=== PATIENT | female | born 1940 | race Caucasian/White ===

== ENCOUNTER 2017-10-04 22:32 | Emergency (ER) | payer MEDICARE ==
[~2017-10-04] VITALS: Ht 167.6 cm; Wt 58.0 kg
[~2017-10-04 22:32] MED LIST: ALPR-411 PO; CHOL2000 PO; DESI10TA PO; FLUO10CA48 PO; MTR600X PO; MULT-190 PO; MULT-506 PO; PRLSR20 PO; SIMV80TA2 PO
[2017-10-04 22:36] VITALS: Ht 167.6 cm; Wt 58.0 kg
--- NOTE | 2017-10-04 23:07 | EMERGENCY ROOM VISIT NOTE ---
History First contact with patient: 22:54 Chief Complaint: LACERATION/CUT (SUT/DERMABOND) Stated Complaint: CUT RT FOOT, 3RD TOE Nursing Triage Summary: laceration to the right middle toe History of Present Illness The patient is a 77 year old female who presents to the Emergency Room with complaints of a laceration to her right third toe. The patient reports that she cut her toe while giving herself a pedicure. She states she was attempting to cut her toenails but slipped and cut her skin. It was bleeding persistently afterward. She does not take any anticoagulants. She denies any pain. Review of Systems A complete 6 point review of systems was reviewed with the patient with pertinent positives and negatives as per history of present illness. All else were negative. Past Medical/Surgical History Medical Problems: (1) Diabetes mellitus, type II (2) Heart disease Social History Smoking Status: Former Smoker Alcohol Use: none Current/Historical Medications Scheduled Alprazolam (Xanax), 0.5 MG PO PRN Cholecalciferol (Vitamin D3), 1 CAP PO QAM Desipramine HCl (Desipramine HCl), 20 MG PO HS Fluoxetine (Prozac), 10 MG PO QAM Ibuprofen (Ibuprofen), 1 TAB PO Q6 Multivitamin (Multivitamin), 1 TAB PO QAM Ocuvite Preservision (Ocuvite Preservision), 1 TAB PO QAM Omeprazole (Prilosec), 20 MG PO QAM Simvastatin (Zocor), 80 MG PO HS Physical Exam Vital Signs Date Time Temp Pulse Resp B/P (MAP) Pulse Ox O2 Delivery O2 Flow Rate FiO2 10/04/17 23:12 36.6 101 20 149/98 94 10/04/17 22:36 36.6 101 20 149/98 94 Room Air Physical Exam VITALS: Vitals are noted on the nurse's note and reviewed by myself. Vital signs stable. GENERAL: This is a 77-year-old female, in no acute distress, nondiaphoretic, well-developed well-nourished. SKIN: There is a small, 0.5 cm laceration to the distal right third toe with no active bleeding. NEURO: Patient was alert and oriented to person place and time. Medical Decision & Procedures Medical Decision The patient was evaluated as above. She sustained a small nonbleeding laceration to the toe. The laceration was dressed and wound care instructions were discussed. The patient verbalized understanding of my assessment and treatment plan and was discharged home in good condition. The patient was independently evaluated by Dr. Frankel, ED attending physician , who agreed with my assessment and treatment plan. Medication Reconcilliation Current Medication List: was personally reviewed by me Blood Pressure Screening Patient's blood pressure: Elevated blood pressure Blood pressure disposition: Elevated BP felt to be situational Impression Primary Impression: Laceration of toe Departure Information Dispostion Home / Self-Care Condition GOOD Referrals Bandar Nieves III, M.D. (PCP) Patient Instructions My [facility] Additional Instructions Leave the dressing in place for the next 24 hours, then you may replace the dressing daily as needed. Tylenol or ibuprofen as needed for pain. Return to the emergency department with any worsening or new/concerning symptoms. Problem Qualifiers Primary Impression: Laceration of toe Encounter type: initial encounter Toe: unspecified toe Damage to nail status: without damage Foreign body presence: without foreign body Laterality: right Qualified Codes: S91.119A - Laceration without foreign body of unspecified toe without damage to nail, initial encounter
--- NOTE | 2017-10-04 23:07 | EMERGENCY ROOM VISIT NOTE ---
ED Visit Note First contact with patient: 22:54 I have seen and examined this patient with Lorie Ortega and generally agree with the treatment plan as discussed. Current/Historical Medications Scheduled Alprazolam (Xanax), 0.5 MG PO PRN Cholecalciferol (Vitamin D3), 1 CAP PO QAM Desipramine HCl (Desipramine HCl), 20 MG PO HS Fluoxetine (Prozac), 10 MG PO QAM Ibuprofen (Ibuprofen), 1 TAB PO Q6 Multivitamin (Multivitamin), 1 TAB PO QAM Ocuvite Preservision (Ocuvite Preservision), 1 TAB PO QAM Omeprazole (Prilosec), 20 MG PO QAM Simvastatin (Zocor), 80 MG PO HS Allergies Coded Allergies: Penicillins (Verified Allergy, Mild, RASH-DR CALLE GAVE OK FOR ANCEF ON 06/28/06, 06/23/16) Vital Signs Date Time Temp Pulse Resp B/P (MAP) Pulse Ox O2 Delivery O2 Flow Rate FiO2 10/04/17 22:36 36.6 101 20 149/98 94 Room Air Departure Information Referrals Bandar Nieves III, M.D. (PCP) Patient Instructions My [facility]
[2017-10-04 23:12] VITALS: BP 149/98; PULSE 101; TEMP 36.6; O2SAT 94
== END 2017-10-04 23:12 | disposition home or self-care (01) ==
LOC: C.EDB 22:33 → C.EDD 23:12
DX: S91.119A Laceration without foreign body of unspecified toe without damage to nail, initial encounter (principal); W45.8XXA Other foreign body or object entering through skin, initial encounter; E11.9 Type 2 diabetes mellitus without complications; I51.9 Heart disease, unspecified; Z87.891 Personal history of nicotine dependence

== ENCOUNTER 2020-10-16 13:18 | Inpatient (IN) ==
[2020-10-16] MEDS ORDERED: FAMOTIDINE 20MG IV PUSH 20 MG/5 ML SYR IV STA (13:42)
[2020-10-16] MEDS ORDERED: PANTOprazole 80 MG in DEXTROSE 5% 100 ML IV ONE (13:42)
[2020-10-16] MEDS ORDERED: PANTOPRAZOLE BOLUS/DRIP 1 EA IV STA (13:42)
[2020-10-16] MEDS ORDERED: SODIUM CHLORIDE 0.9% 500 ML IV SCH ×2 (13:45→19:15)
[2020-10-16 13:59] LABS: Basophils # (auto) 0.01 K/uL (0-0.2); Basophils % (auto) 0.1 %; Eosinophils # (auto) 0.01 K/uL (0-0.5); Eosinophils % (auto) 0.1 %; Hematocrit (blood only) 38.8 % (37-47); Hemoglobin 12.3 g/dL (12.0-16.0); Immature Granulocytes # (auto) 0.02 K/uL (0.00-0.02); Immature Granulocytes % (auto) 0.2 %; Lymphocytes # (auto) 0.71 K/uL (1.2-3.4); Lymphocytes % (auto) 5.7 %; Mean Corpuscular Hemoglobin 30.9 pg (25-34); Mean Corpuscular Hgb Conc 31.7 g/dL (32-36); Mean Corpuscular Volume 97.5 fL (80-100); Mean Platelet Volume 9.3 fL (7.4-10.4); Monocytes # (auto) 0.43 K/uL (0.11-0.59); Monocytes % (auto) 3.5 %; Neutrophils # (auto) 11.26 K/uL (1.4-6.5); Neutrophils % (auto) 90.4 %; Platelet Count 365 K/uL (130-400); RDW Standard Deviation 56.7 fL (36.4-46.3); Red Blood Count 3.98 M/uL (4.2-5.4); White Blood Count 12.44 K/uL (4.8-10.8)
[2020-10-16] MEDS: PANTOprazole 40 MG in DEXTROSE 5% 100 ML IV SCH ×2 (14:02→19:32)
[2020-10-16 14:14] LABS: Partial Thromboplastin Ratio 0.8; Partial Thromboplastin Time 21.1 Seconds (21.0-31.0); Prothrombin Time 9.8 Seconds (9.0-12.0)
[2020-10-16 14:23] LABS: Albumin Globulin Ratio 0.7 (0.9-2); Albumin Level 2.5 gm/dl (3.4-5.0); Bilirubin,Total 0.4 mg/dl (0.2-1); Calcium 8.6 mg/dl (8.5-10.1); Est GFR (African American) 44.1; Est GFR (Non-African American) 38.1; Globulin 3.6 gm/dl (2.5-4.0); Potassium 5.2 mmol/L (3.5-5.1); Total Protein 6.1 gm/dl (6.4-8.2); Troponin I 0.024 ng/ml (0-0.045)
--- NOTE | 2020-10-16 14:48 | History & Physical Report ---
Date of Service October 16, 2020 Assessment & Plan (1) Coffee ground emesis: (2) CAD (coronary artery disease): (3) GERD (gastroesophageal reflux disease): (4) COPD (chronic obstructive pulmonary disease): (5) Depression: (6) Anxiety: (7) Sleep apnea: This is an 80-year-old female with PMH of CAD, GERD, COPD, bronchiectasis, anxiety, depression, SILVIA and other medical problems listed below who presents with caregiver after multiple episodes of coffee-ground emesis since last evenin g. Coffee ground emesis Reported episodes overnight - attempting to reach [facility] for more info History of EGD in September 2019 with large hiatal hernia. Prescribed omeprazole. History of colonoscopy in 2018 with adenomatous polyp Hemodynamically stable. Mild leukocytosis of 12.44, hgb stable at 12.3. BUN elevated at 35. Cr 1.31. Stool occult blood positive Continue IV protonix bolus/drip, NPO, routine GI consult, gentle IV fluids, monitor H&H CAD No chest pain, no acute EKG changes Hold aspirin, continue statin COPD Tobacco use disorder Smoking for 50+ years, decreased to 0.50 ppd Continue albuterol inh PRN Anxiety Depression Continue Lexapro, Xanax PRN SILVIA Not using CPAP currently DVT Ppx: SCDs Code status: FULL PCP: Ezequiel Dispo: Observation med tele. Will continue attempting to contact [facility] for more information and to complete medication reconciliation. Patient seen in collaboration with Dr. Carter. Please see addendum. History of Present Illness Chief Complaint: Coffee-ground emesis, heme positive stool Primary Care Provider: Bandar Nieves MD This is an 80-year-old female with PMH of type 2 diabetes, dyslipidemia, COPD, bronchiectasis, SILVIA, CAD, GERD and other medical problems listed below who presents with caregiver after multiple episodes of coffee-ground emesis during the night. Patient vaguely remembered this occurring once she woke up and saw dark brown stains on pajamas and sheets. Denies this occurring previously. No abdominal pain. Last bowel movement was yesterday morning and describes as normal. No hematochezia or melena. No fever, chills, lightheadedness, headache, chest pain, SOB, nausea, dysuria or hematuria. Does not know medications off hand but asked that I call caregivers to discuss. Knows that she takes a baby aspirin daily. Also with significant smoking history of 50+ years. Currently smoking 1/2 ppd. History of EGD in September 2019 with large hiatal hernia. Prescribed omeprazole. History of colonoscopy in 2018 with adenomatous polyp. In ED, patient is afebrile and hemodynamically stable. Mild leukocytosis of 12.44, hgb stable at 12.3. Potassium 5.2. BUN elevated at 35. Cr 1.31. Stool occult blood positive Allergies Allergy/AdvReac Type Severity Reaction Status Date / Time Penicillins Allergy Mild Rash Verified 10/16/20 15:10 Home Medications Medication Instructions Recorded Confirmed Type aspirin 81 mg PO QAM 02/10/19 10/16/20 History atorvastatin 80 mg PO QAM 02/10/19 10/16/20 History cholecalciferol (vitamin D3) 2,000 unit PO QAM 02/10/19 10/16/20 History [Vitamin D3] multivitamin 1 tab PO QAM 02/10/19 10/16/20 History PreserVision AREDS 1 tab PO QAM 06/06/19 10/16/20 History albuterol sulfate [ProAir HFA] 2 puff INHALATION Q6H PRN 06/06/19 10/16/20 History escitalopram oxalate 10 mg PO QAM 06/06/19 10/16/20 History omeprazole 40 mg PO QAM 09/30/19 10/16/20 History alprazolam 0.5 mg PO HS PRN 10/16/20 10/16/20 History Past Med/Surg History Medical History Anxiety Bronchiectasis CAD (coronary artery disease) Cancer of left breast 2005--sx, chemo, radiation COPD (chronic obstructive pulmonary disease) Depression Diabetes mellitus, type II GERD (gastroesophageal reflux disease) Hyperlipidemia Myocardial Infarction 08/2017 "silent"--follows with Dr. Aguiar Sleep apnea CPAP--uses it from time to time Surgical History History of bilateral cataract extraction History of colonoscopy History of esophagogastroduodenoscopy (EGD) History of left breast biopsy malignant History of lumpectomy of left breast History of tooth extraction all teeth Family History Brother Family hx of colon cancer Other No family history of adverse response to anesthesia Social History Smoking Status: Current some day smoker Cigarettes Per Day: COUPLE CIGS A DAY-TRYING TO QUIT AGAIN-ON [place]ANTIX; Second Hand Exposure: Yes (FATHER SMOKED); Hx Alcohol Use: No Hx Substance Use: No Preferred Language: Sudanese Communication Ability: Effective [employer] Required: No Beliefs That Will Affect Care: None Current Living Situation: Alone Feels Safe at Home: Yes Assistive Devices: CPAP, Denture - Upper and Glasses Review of Systems Review of Systems: At least ten systems reviewed and negative except as noted in the HPI. Physical Exam Physical Exam: General Appearance: vitals as above, NAD, thin, sitting up in bed, pleasant, conversing appropriately Head: normocephalic, atraumatic Eyes: normal inspection, PERRL, conjunctivae normal, anicteric sclerae ENT: external ear and nose normal, oropharynx normal Neck: normal visual inspection, trachea midline, no thyromegaly Respiratory: normal respiratory effort, lungs clear to auscultation, no wheeze, rales, rhonchi. No accessory muscle use Cardiovascular: regular rate, rhythm, no murmur, normal peripheral pulses, no BLE edema. Vessels: no JVD Chest: normal inspection of chest Abdomen/GI: normal bowel sounds, soft, nontender, no hepatosplenomegaly Extremities/Musculoskeletal: no cyanosis or clubbing, extremities motor strength 5/5 Neurologic: PERRL, EOMI, accommodation nl, no face palsy, no dysarthria, CN's II-XI intact bilaterally and moves all extremities Psychiatric: A+Ox3 but not to situation, euthymic affect Skin: no rashes, normal color, warm/dry. + Erythema on dorsal aspect of R foot with bandage in place. No purulant drainage or warmth to touch Results & Data Results & Data ([facility]) Vital Signs (Past 12 Hours) Vital Signs Temp Pulse Resp BP Pulse Ox 10/16/20 14:20 78 97 10/16/20 14:10 77 23 98 10/16/20 14:00 84 24 114/61 94 10/16/20 13:50 88 95 10/16/20 13:43 95 H 20 120/81 99 10/16/20 13:40 98 H 13 10/16/20 13:30 96 H 99 10/16/20 13:27 98 H 99 10/16/20 13:26 36.8 C 102 H 18 133/65 98 10/16/20 13:21 96 H 133/65 99 Laboratory Results Short CBC 10/16/20 10/16/20 Range/Units 13:39 13:39 WBC 12.44 H (4.8-10.8) K/uL Hgb 12.3 (12.0-16.0) g/dL Hct 38.8 (37-47) % Plt Count 365 (130-400) K/uL BUN 35 H (7-18) mg/dl Creatinine 1.31 H (0.6-1.2) mg/dl BMP 10/16/20 13:39 Sodium 140 Potassium 5.2 H Chloride 107 Carbon Dioxide 26 BUN 35 H Creatinine 1.31 H Glucose 128 H Calcium 8.6 Cardiac Enzymes 10/16/20 Range/Units 13:39 Troponin I 0.024 (0-0.045) ng/ml Liver Function 10/16/20 Range/Units 13:39 Total Bilirubin 0.4 (0.2-1) mg/dl AST 22 (15-37) U/L ALT 19 (12-78) U/L Alkaline Phosphatase 83 (45-117) U/L Albumin 2.5 L (3.4-5.0) gm/dl Supervising Physician Co-Signing Physician Notes Pt seen and examined by me, care coordinated w/ Bri Ma PA-C. Pt is an 80 F who presents w/ coffee-ground emesis. She is not sure about the events as it happened overnight and this AM, however caregiver was able to provide the hx. In the ED pt is pleasant and in no distress. She is hemodynamically stable. Hgb above 12. Started on IV protonic, received IVF. She is alert and oriented but not sure about all the details of hx - mental status at baseline. CTAB no wheezing, rhonchi crackles noted. Heart sounds regular. Abdomen is thin, soft, nontender to palpation and nondistended. She moves all extremities w/o difficulty. Will cont. IV PPI and will monitor H&H. GI consulted for further eval. A. Knab, MD
--- NOTE | 2020-10-16 16:28 | Emergency Department Note ---
Impression & Plan Acute GI bleeding, Coffee ground emesis ED Provider Note INFORMANT: Patient ED PROVIDER(S): Bandar Marquez MD CHIEF COMPLAINT: Coffee-ground emesis PLAN: Disposition: Admitted Condition: Good Outpatient prescription management: none Referral: None MEDICAL DECISION MAKING: Patient presented emerged department with coffee-ground emesis. Physical examination showed stable vital signs however the patient was Hemoccult positive. Blood work was obtained. She had slight leukocytosis. Her chemistry panel revealed an elevated BUN. This is concerning for GI bleed, possibly upper source. The patient was started on Pepcid and Protonix. I discussed further management in the hospital. Covid testing was performed and was negative. Consultation was made with the [employer] [facility] service. The case was discussed with Bri Ma PA-C. Patient will be admitted by Dr. Carter. Triage Nursing notes reviewed and agree them. Vital Signs: reviewed and remarkable for no significant abnormalities Differential diagnosis: Diverticulosis, AVM, coagulopathy, colitis, inflammatory bowel disease, malignancy, Estefany-Ribeiro tear, esophagitis, peptic ulcer disease, variceal bleed, gastritis, epistaxis, fissure, hemorrhoids, as well as other pathologies. Diagnostics interpreted by me: ECG: Twelve-lead ECG reveals normal sinus rhythm at 99 bpm. There is anterior Q waves as well as septal Q waves. No ST elevation. No PVCs. Normal QRS and axis. Cardiac Monitoring: Cardiac monitoring ordered by me: The patient was placed on continuous cardiac monitoring and observed. It revealed a normal sinus rhythm at 85 beats per minute without ectopy or evidence of dysrhythmia. Imaging studies: Deferred HPI: The patient is a 80 year old female who presents to the Emergency Room with complaints of coffee-ground emesis. This started last night and has occurred several times per the patient. Caregiver noted it this morning and contacted primary. She was directed to the ER for further evaluation.. The patient also notes the following associated symptoms, none. The patient has taken no new medication for relieving factors. Current pain is rated as 0/10. No prior history of GI bleed. Pt denies LOC, headache, fevers, chills, diaphoresis, visual changes, neck pain, chest pain, breathing difficulties, abdominal pain, back pain, melena, hematochezia, urinary symptoms, numbness, weakness, lymphadenopathy, rash, or other complaints. ROS: See above HPI for pertinent positives & negatives. A total of 10 systems reviewed and were otherwise negative. PAST MEDICAL HISTORY:See Below , diabetes, COPD PAST SURGICAL HISTORY:See Below, FAMILY HISTORY:See Below SOCIAL HISTORY:See Below, lives at home alone. Caregivers daily. HOME MEDICATIONS:See Below ALLERGIES:See Below VITALS:See Below PHYSICAL EXAMINATION: GENERAL: Awake, alert, well-appearing, in no distress HENT: Normocephalic, atraumatic. Oropharynx unremarkable. EYES: Normal conjunctiva. Sclera non-icteric. NECK: Inspection normal. Non-tender. Supple. No nuchal rigidity. FROM. No masses. RESPIRATORY: Clear to auscultation. No wheezes. No rales. Normal respiratory effort. CARDIAC: Normal rate. Normal rhythm. No murmurs. No rubs. Extremities warm and well perfused. Pulses equal. No JVD. GI: Soft, non-distended. No tenderness to palpation. No rebound or guarding. No masses. RECTAL: Reddish stool. Hemoccult positive. MUSCULOSKELETAL: Atraumatic. Chest examination reveals no tenderness. The back is symmetrical on inspection without obvious abnormality. There is no CVA tenderness to palpation. No joint edema. LOWER EXTREMITIES: Calves are equal size bilaterally and non-tender. No edema. No discoloration. NEURO: Normal sensorium. No sensory or motor deficits noted. SKIN: No rash or jaundice noted. Bandar Marquez MD Past Med/Surg History Medical History (Updated 10/16/20 @ 16:24 by Bandar Marquez MD) Anxiety Bronchiectasis CAD (coronary artery disease) Cancer of left breast 2005--sx, chemo, radiation COPD (chronic obstructive pulmonary disease) Depression Diabetes mellitus, type II GERD (gastroesophageal reflux disease) Hyperlipidemia Myocardial Infarction 08/2017 "silent"--follows with Dr. Aguiar Sleep apnea CPAP--uses it from time to time Surgical History History of bilateral cataract extraction History of colonoscopy History of esophagogastroduodenoscopy (EGD) History of left breast biopsy malignant History of lumpectomy of left breast History of tooth extraction all teeth Family History Brother Family hx of colon cancer Other No family history of adverse response to anesthesia Social History Smoking Status: Current some day smoker Cigarettes Per Day: COUPLE CIGS A DAY-TRYING TO QUIT AGAIN-ON CHANTIX; Second Hand Exposure: Yes (FATHER SMOKED); Hx Alcohol Use: No Hx Substance Use: No Preferred Language: [place] Communication Ability: Effective [employer] Required: No Beliefs That Will Affect Care: None Current Living Situation: Alone Feels Safe at Home: Yes Assistive Devices: CPAP, Denture - Upper and Glasses Allergies Allergies Allergy/AdvReac Type Severity Reaction Status Date / Time Penicillins Allergy Mild Rash Verified 10/16/20 15:10 Home Meds Home Medications Medication Instructions Recorded Confirmed aspirin 81 mg PO QAM 02/10/19 10/16/20 atorvastatin 80 mg PO QAM 02/10/19 10/16/20 cholecalciferol (vitamin D3) 2,000 unit PO QAM 02/10/19 10/16/20 [Vitamin D3] multivitamin 1 tab PO QAM 02/10/19 10/16/20 PreserVision AREDS 1 tab PO QAM 06/06/19 10/16/20 albuterol sulfate [ProAir HFA] 2 puff INHALATION Q6H PRN 06/06/19 10/16/20 escitalopram oxalate 10 mg PO QAM 06/06/19 10/16/20 omeprazole 40 mg PO QAM 09/30/19 10/16/20 alprazolam 0.5 mg PO HS PRN 10/16/20 10/16/20 Results & Data (ED) Vital Signs Vital Signs - 24 hr 10/16/20 13:21 10/16/20 13:26 10/16/20 13:27 Temperature 36.8 C Temperature Source Oral Pulse Rate 96 H 102 H 98 H Pulse Rate from SpO2 Sensor 97 H 97 H Pulse Rhythm Respiratory Rate 18 Blood Pressure 133/65 133/65 Blood Pressure Mean 87 87 Pulse Oximetry 99 98 99 Oxygen Delivery Method Room Air Sepsis Recent Fever Within 48 Hours No Sepsis New/Unexplained Change in Mental Status N/A Sepsis Action Taken by Nursing No Action Required 10/16/20 13:30 10/16/20 13:40 10/16/20 13:43 Temperature Temperature Source Pulse Rate 96 H 98 H 95 H Pulse Rate from SpO2 Sensor 96 H 93 H Pulse Rhythm Regular Respiratory Rate 13 20 Blood Pressure 120/81 Blood Pressure Mean 94 Pulse Oximetry 99 99 Oxygen Delivery Method Room Air Sepsis Recent Fever Within 48 Hours Sepsis New/Unexplained Change in Mental Status Sepsis Action Taken by Nursing 10/16/20 13:50 10/16/20 14:00 10/16/20 14:10 Temperature Temperature Source Pulse Rate 88 84 77 Pulse Rate from SpO2 Sensor 86 82 77 Pulse Rhythm Respiratory Rate 24 23 Blood Pressure 114/61 Blood Pressure Mean 78 Pulse Oximetry 95 94 98 Oxygen Delivery Method Sepsis Recent Fever Within 48 Hours Sepsis New/Unexplained Change in Mental Status Sepsis Action Taken by Nursing 10/16/20 14:20 Temperature Temperature Source Pulse Rate 78 Pulse Rate from SpO2 Sensor 77 Pulse Rhythm Respiratory Rate Blood Pressure Blood Pressure Mean Pulse Oximetry 97 Oxygen Delivery Method Sepsis Recent Fever Within 48 Hours Sepsis New/Unexplained Change in Mental Status Sepsis Action Taken by Nursing Laboratory Data Result diagrams: 10/16/20 13:39 10/16/20 13:39 Lab Results 10/16/20 10/16/20 10/16/20 Range/Units 13:39 13:39 13:39 WBC 12.44 H (4.8-10.8) K/uL RBC 3.98 L (4.2-5.4) M/uL Hgb 12.3 (12.0-16.0) g/dL Hct 38.8 (37-47) % MCV 97.5 (80-100) fL MCH 30.9 (25-34) pg MCHC 31.7 L (32-36) g/dL RDW Std Deviation 56.7 H (36.4-46.3) fL RDW Coeff of Thierry 16.0 H (11.5-14.5) % Plt Count 365 (130-400) K/uL MPV 9.3 (7.4-10.4) fL Immature Gran % (Auto) 0.2 % Neut % (Auto) 90.4 % Lymph % (Auto) 5.7 % Jenkins % (Auto) 3.5 % Eos % (Auto) 0.1 % Baso % (Auto) 0.1 % Neut # (Auto) 11.26 H (1.4-6.5) K/uL Lymph # (Auto) 0.71 L (1.2-3.4) K/uL Jenkins # (Auto) 0.43 (0.11-0.59) K/uL Eos # (Auto) 0.01 (0-0.5) K/uL Baso # (Auto) 0.01 (0-0.2) K/uL Immature Gran # (Auto) 0.02 (0.00-0.02) K/uL PT (9.0-12.0) Seconds INR (0.9-1.1) APTT (21.0-31.0) Seconds PTT Ratio Sodium 140 (136-145) mmol/L Potassium 5.2 H (3.5-5.1) mmol/L Chloride 107 (98-107) mmol/L Carbon Dioxide 26 (21-32) mmol/L Anion Gap 7.0 (3-11) BUN 35 H (7-18) mg/dl Creatinine 1.31 H (0.6-1.2) mg/dl Est Cr Clr Drug Dosing 24.0 ml/min Est GFR ( Amer) 44.1 Est GFR (Non-Af Amer) 38.1 BUN/Creatinine Ratio 27.0 H (10-20) Glucose 128 H (70-99) mg/dl Calcium 8.6 (8.5-10.1) mg/dl Total Bilirubin 0.4 (0.2-1) mg/dl AST 22 (15-37) U/L ALT 19 (12-78) U/L Alkaline Phosphatase 83 (45-117) U/L Troponin I 0.024 (0-0.045) ng/ml Total Protein 6.1 L (6.4-8.2) gm/dl Albumin 2.5 L (3.4-5.0) gm/dl Globulin 3.6 (2.5-4.0) gm/dl Albumin/Globulin Ratio 0.7 L (0.9-2) Specimen Hemolysis POC Stool Occult Blood (Negative) COVID-19 Eval Order SARS-CoV-2, RNA, NAAT (NEGATIVE) Blood Type Cancelled Blood Type Recheck Antibody Screen Cancelled 10/16/20 10/16/20 10/16/20 Range/Units 13:39 13:39 13:43 WBC (4.8-10.8) K/uL RBC (4.2-5.4) M/uL Hgb (12.0-16.0) g/dL Hct (37-47) % MCV (80-100) fL MCH (25-34) pg MCHC (32-36) g/dL RDW Std Deviation (36.4-46.3) fL RDW Coeff of Thierry (11.5-14.5) % Plt Count (130-400) K/uL MPV (7.4-10.4) fL Immature Gran % (Auto) % Neut % (Auto) % Lymph % (Auto) % Jenkins % (Auto) % Eos % (Auto) % Baso % (Auto) % Neut # (Auto) (1.4-6.5) K/uL Lymph # (Auto) (1.2-3.4) K/uL Jenkins # (Auto) (0.11-0.59) K/uL Eos # (Auto) (0-0.5) K/uL Baso # (Auto) (0-0.2) K/uL Immature Gran # (Auto) (0.00-0.02) K/uL PT 9.8 (9.0-12.0) Seconds INR 1.0 (0.9-1.1) APTT 21.1 (21.0-31.0) Seconds PTT Ratio 0.8 Sodium (136-145) mmol/L Potassium (3.5-5.1) mmol/L Chloride (98-107) mmol/L Carbon Dioxide (21-32) mmol/L Anion Gap (3-11) BUN (7-18) mg/dl Creatinine (0.6-1.2) mg/dl Est Cr Clr Drug Dosing ml/min Est GFR ( Amer) Est GFR (Non-Af Amer) BUN/Creatinine Ratio (10-20) Glucose (70-99) mg/dl Calcium (8.5-10.1) mg/dl Total Bilirubin (0.2-1) mg/dl AST (15-37) U/L ALT (12-78) U/L Alkaline Phosphatase (45-117) U/L Troponin I (0-0.045) ng/ml Total Protein (6.4-8.2) gm/dl Albumin (3.4-5.0) gm/dl Globulin (2.5-4.0) gm/dl Albumin/Globulin Ratio (0.9-2) Specimen Hemolysis POC Stool Occult Blood Positive A (Negative) COVID-19 Eval Order SARS-CoV-2, RNA, NAAT (NEGATIVE) Blood Type Blood Type Recheck O Positive Antibody Screen 10/16/20 10/16/20 10/16/20 Range/Units 14:43 14:43 14:48 WBC (4.8-10.8) K/uL RBC (4.2-5.4) M/uL Hgb (12.0-16.0) g/dL Hct (37-47) % MCV (80-100) fL MCH (25-34) pg MCHC (32-36) g/dL RDW Std Deviation (36.4-46.3) fL RDW Coeff of Thierry (11.5-14.5) % Plt Count (130-400) K/uL MPV (7.4-10.4) fL Immature Gran % (Auto) % Neut % (Auto) % Lymph % (Auto) % Jenkins % (Auto) % Eos % (Auto) % Baso % (Auto) % Neut # (Auto) (1.4-6.5) K/uL Lymph # (Auto) (1.2-3.4) K/uL Jenkins # (Auto) (0.11-0.59) K/uL Eos # (Auto) (0-0.5) K/uL Baso # (Auto) (0-0.2) K/uL Immature Gran # (Auto) (0.00-0.02) K/uL PT (9.0-12.0) Seconds INR (0.9-1.1) APTT (21.0-31.0) Seconds PTT Ratio Sodium (136-145) mmol/L Potassium (3.5-5.1) mmol/L Chloride (98-107) mmol/L Carbon Dioxide (21-32) mmol/L Anion Gap (3-11) BUN (7-18) mg/dl Creatinine (0.6-1.2) mg/dl Est Cr Clr Drug Dosing ml/min Est GFR ( Amer) Est GFR (Non-Af Amer) BUN/Creatinine Ratio (10-20) Glucose (70-99) mg/dl Calcium (8.5-10.1) mg/dl Total Bilirubin (0.2-1) mg/dl AST (15-37) U/L ALT (12-78) U/L Alkaline Phosphatase (45-117) U/L Troponin I (0-0.045) ng/ml Total Protein (6.4-8.2) gm/dl Albumin (3.4-5.0) gm/dl Globulin (2.5-4.0) gm/dl Albumin/Globulin Ratio (0.9-2) Specimen Hemolysis POC Stool Occult Blood (Negative) COVID-19 Eval Order Covid19 [facility]Now [facility] SARS-CoV-2, RNA, NAAT NEGATIVE (NEGATIVE) Blood Type O Positive Blood Type Recheck Antibody Screen NEGATIVE Administered Medications Pantoprazole Sodium 40 mg/ (Dextrose) 100 mls @ 20 mls/hr IV Q5H MOLLY Stop: 11/15/20 13:58 Last Admin: 10/16/20 14:02 Dose: 8 mg/hr, 20 mls/hr Documented by: [id number] Discontinued Medications Sodium Chloride (Nss) 500 mls @ 999 mls/hr IV .Q31M MOLLY Stop: 10/16/20 14:15 Last Admin: 10/16/20 14:01 Dose: 999 mls/hr Documented by: [id number] Famotidine (Pepcid 20mg Iv Push) 20 mg in 5 mls @ 2.5 mls/min IV NOW STA Stop: 10/16/20 13:43 Last Admin: 10/16/20 14:01 Dose: 2.5 mls/min Documented by: [id number] Pantoprazole Sodium (Protonix Bolus/Drip) 0 mls @ 1 mls/hr IV ONE STA Stop: 10/16/20 13:43 Last Admin: 10/16/20 14:02 Dose: Not Given Documented by: [id number] Pantoprazole Sodium 80 mg/ (Dextrose) 120 mls @ 400 mls/hr IV NOW ONE Stop: 10/16/20 13:59 Last Admin: 10/16/20 14:02 Dose: 400 mls/hr Documented by: [id number] Discharge Plan Visit Data Chief Complaint: GI Assessment ED Provider: Bandar Marquez Discharge Problem: Acute GI bleeding, Coffee ground emesis Forms Stand Alone Forms: [facility] Prescriptions Prescriptions: No Action multivitamin Tablet 1 tab PO QAM RF: 0 atorvastatin 40 mg Tablet 80 mg PO QAM RF: 0 aspirin 81 mg Tablet,Delayed Release (Dr/Ec) 81 mg PO QAM RF: 0 cholecalciferol (vitamin D3) [Vitamin D3] 2,000 unit Tablet 2,000 unit PO QAM RF: 0 albuterol sulfate [ProAir HFA] 90 mcg/actuation Hfa Aerosol Inhaler 2 puff INHALATION Q6H PRN (Reason: Shortness Of Breath) RF: 0 escitalopram oxalate 10 mg Tablet 10 mg PO QAM RF: 0 PreserVision AREDS [id number] Tablet 1 tab PO QAM RF: 0 omeprazole 40 mg Capsule,Delayed Release(Dr/Ec) 40 mg PO QAM RF: 0 alprazolam 0.5 mg tablet 0.5 mg PO HS PRN (Reason: Anxiety) RF: 0
[2020-10-16] MEDS ORDERED: ONDANSETRON INJ 2 MG/ML 2 ML VIAL IV PRN (18:01)
[2020-10-16 20:02] LABS: Appearance Urine Cloudy (Clear); Bacteria Urine Automated Negative (Negative); Bilirubin Urine Negative (Negative); Blood Urine Negative (Negative); Color Urine Yellow; Glucose Urine UA Negative (Negative); Ketones Urine Negative (Negative); Leukocyte Esterase Urine 3+ (Negative); Nitrite Urine Negative (Negative); RBC Urine Automated 0-4 /hpf (0-4); Specific Gravity Urine 1.015 (1.000-1.030); Urobilinogen Urine Negative (Negative); WBC Urine Automated >30 /hpf (0-5); pH Urine 8.5 (4.5-7.5)
[2020-10-16 20:06] LABS: Protein Urine Trace (Negative)
[2020-10-17 00:21] LABS: Hematocrit (blood only) 29.9 % (37-47); Hemoglobin 9.5 g/dL (12.0-16.0)
[2020-10-17] MEDS: PANTOprazole 40 MG in DEXTROSE 5% 100 ML IV SCH ×5 (01:43→21:24)
[2020-10-17 05:56] LABS: Hematocrit (blood only) 29.8 % (37-47); Hemoglobin 9.5 g/dL (12.0-16.0); Mean Corpuscular Hemoglobin 30.9 pg (25-34); Mean Corpuscular Hgb Conc 31.9 g/dL (32-36); Mean Corpuscular Volume 97.1 fL (80-100); Mean Platelet Volume 8.8 fL (7.4-10.4); Platelet Count 291 K/uL (130-400); RDW Coefficient of Variation 16.2 % (11.5-14.5); RDW Standard Deviation 56.7 fL (36.4-46.3); Red Blood Count 3.07 M/uL (4.2-5.4); White Blood Count 5.73 K/uL (4.8-10.8)
[2020-10-17 06:24] LABS: BUN Creatinine Ratio 22.6 (10-20); Creatinine Clr Calc Pharmacy 26.9 ml/min; Est GFR (African American) 50.6; Est GFR (Non-African American) 43.7; Potassium 4.6 mmol/L (3.5-5.1)
--- NOTE | 2020-10-17 07:47 | Hospitalist Progress Note ---
Date of Service October 17, 2020 Assessment & Plan (1) Coffee ground emesis: (2) CAD (coronary artery disease): (3) GERD (gastroesophageal reflux disease): (4) COPD (chronic obstructive pulmonary disease): (5) Depression: (6) Anxiety: (7) Sleep apnea: This is an 80-year-old female with PMH of CAD, GERD, COPD, bronchiectasis, anxiety, depression, SILVIA and other medical problems listed below who presents with caregiver after multiple episodes of coffee-ground emesis. Coffee ground emesis Reported episodes overnight - attempting to reach [facility] for more info History of EGD in September 2019 with large hiatal hernia. Prescribed omeprazole. History of colonoscopy in 2018 with adenomatous polyp Hemodynamically stable. Mild leukocytosis of 12.44, hgb 12.3 on admission. BUN elevated at 35. Cr 1.31. Stool occult blood positive Continue IV protonix bolus/drip, NPO, routine GI consult, gentle IV fluids, monitor H&H Hgb 9.5 this AM, hemodynamically stable, will cont. to closely monitor plan for EGD tomorrow (10/18) CAD No chest pain, no acute EKG changes Hold aspirin, continue statin COPD Tobacco use disorder Smoking for 50+ years, decreased to 0.50 ppd Continue albuterol inh PRN Anxiety Depression Continue Lexapro, Xanax PRN SILVIA Not using CPAP currently DVT Ppx: SCDs Code status: FULL PCP: Dr. Nieves Dispo: to be determined Admission and Anticipated Discharge Date Admission Date: October 16, 2020 Subjective Pt seen in follow up of pos. upper GI bleed Yesterday witnessed by caregiver coffee-ground emesis Currently laying in bed, in NAD, denies having any more emesis since admission Hgb down 9.5 GI consulted Review of Systems Review of Systems: All systems reviewed & are unremarkable except as noted in HPI & below Constitutional: no fever and no chills Respiratory: no cough and no dyspnea Cardiovascular: no chest pain and no palpitations Gastrointestinal: no abdominal pain, no nausea and no vomiting Physical Exam Physical Exam: General Appearance: vitals as above, NAD, thin, laying in bed, pleasant, conversing appropriately Head: normocephalic, atraumatic Eyes: normal inspection, PERRL,EOMI, conjunctivae normal, anicteric sclerae ENT: external ear and nose normal, oropharynx normal Neck: normal visual inspection, trachea midline, no thyromegaly Respiratory: normal respiratory effort, lungs clear to auscultation, no wheeze, rales, rhonchi. No accessory muscle use Cardiovascular: regular rate, rhythm, no murmur, normal peripheral pulses, no BLE edema. Vessels: no JVD Chest: normal inspection of chest Abdomen/GI: normal bowel sounds, thin, soft, nontender, nondistended Extremities/Musculoskeletal: no cyanosis or clubbing, extremities motor strength 5/5 Neurologic: PERRL, EOMI, no face palsy, no dysarthria, CN's II-XI intact bilaterally and moves all extremities Psychiatric: A+Ox3 but not to situation, euthymic affect Skin: no rashes, normal color, warm/dry. + small Erythema on dorsal aspect of R foot with bandage in place. No purulent drainage or warmth to touch Results & Data Results & Data ([facility]) Vital Signs (Past 12 Hours) Vital Signs Temp Pulse Pulse Resp BP Pulse Ox 10/17/20 07:45 36.8 C 68 18 102/61 99 10/17/20 03:51 37.2 C 60 17 108/64 99 10/17/20 02:12 75 10/16/20 23:42 37 C 72 20 101/59 L 98 Laboratory Results 10/17/20 10/17/20 10/17/20 Range/Units 05:42 05:42 00:12 WBC 5.73 (4.8-10.8) K/uL RBC 3.07 L (4.2-5.4) M/uL Hgb 9.5 L 9.5 L (12.0-16.0) g/dL Hct 29.8 L 29.9 L (37-47) % MCV 97.1 (80-100) fL MCH 30.9 (25-34) pg MCHC 31.9 L (32-36) g/dL RDW Std Deviation 56.7 H (36.4-46.3) fL RDW Coeff of Thierry 16.2 H (11.5-14.5) % Plt Count 291 (130-400) K/uL MPV 8.8 (7.4-10.4) fL Immature Gran % (Auto) % Neut % (Auto) % Lymph % (Auto) % [place] % (Auto) % Eos % (Auto) % Baso % (Auto) % Neut # (Auto) (1.4-6.5) K/uL Lymph # (Auto) (1.2-3.4) K/uL [place] # (Auto) (0.11-0.59) K/uL Eos # (Auto) (0-0.5) K/uL Baso # (Auto) (0-0.2) K/uL Immature Gran # (Auto) (0.00-0.02) K/uL PT (9.0-12.0) Seconds INR (0.9-1.1) APTT (21.0-31.0) Seconds PTT Ratio Sodium 142 (136-145) mmol/L Potassium 4.6 (3.5-5.1) mmol/L Chloride 110 H (98-107) mmol/L Carbon Dioxide 27 (21-32) mmol/L Anion Gap 6.0 (3-11) BUN 27 H (7-18) mg/dl Creatinine 1.17 (0.6-1.2) mg/dl Est Cr Clr Drug Dosing 26.9 ml/min Est GFR ( Amer) 50.6 Est GFR (Non-Af Amer) 43.7 BUN/Creatinine Ratio 22.6 H (10-20) Glucose 79 (70-99) mg/dl Calcium 8.0 L (8.5-10.1) mg/dl Total Bilirubin (0.2-1) mg/dl AST (15-37) U/L ALT (12-78) U/L Alkaline Phosphatase (45-117) U/L Troponin I (0-0.045) ng/ml Total Protein (6.4-8.2) gm/dl Albumin (3.4-5.0) gm/dl Globulin (2.5-4.0) gm/dl Albumin/Globulin Ratio (0.9-2) Specimen Hemolysis Urine Color Urine Appearance (Clear) Urine pH (4.5-7.5) Ur Specific [place] (1.000-1.030) Urine Protein (Negative) Urine Glucose (UA) (Negative) Urine Ketones (Negative) Urine Blood (Negative) Urine Nitrite (Negative) Urine Bilirubin (Negative) Urine Urobilinogen (Negative) Ur Leukocyte Esterase (Negative) Urine WBC (Auto) (0-5) /hpf Urine RBC (Auto) (0-4) /hpf U Hyaline Cast (Auto) (0-5) /lpf U Epithel Cells (Auto) (0-5) /lpf Urine Bacteria (Auto) (Negative) POC Stool Occult Blood (Negative) COVID-19 Eval Order SARS-CoV-2, RNA, NAAT (NEGATIVE) Blood Type Blood Type Recheck Antibody Screen 10/16/20 10/16/20 10/16/20 Range/Units 19:48 14:48 14:48 WBC (4.8-10.8) K/uL RBC (4.2-5.4) M/uL Hgb (12.0-16.0) g/dL Hct (37-47) % MCV (80-100) fL MCH (25-34) pg MCHC (32-36) g/dL RDW Std Deviation (36.4-46.3) fL RDW Coeff of Thierry (11.5-14.5) % Plt Count (130-400) K/uL MPV (7.4-10.4) fL Immature Gran % (Auto) % Neut % (Auto) % Lymph % (Auto) % [place] % (Auto) % Eos % (Auto) % Baso % (Auto) % Neut # (Auto) (1.4-6.5) K/uL Lymph # (Auto) (1.2-3.4) K/uL [place] # (Auto) (0.11-0.59) K/uL Eos # (Auto) (0-0.5) K/uL Baso # (Auto) (0-0.2) K/uL Immature Gran # (Auto) (0.00-0.02) K/uL PT (9.0-12.0) Seconds INR (0.9-1.1) APTT (21.0-31.0) Seconds PTT Ratio Sodium (136-145) mmol/L Potassium 4.9 (3.5-5.1) mmol/L Chloride (98-107) mmol/L Carbon Dioxide (21-32) mmol/L Anion Gap (3-11) BUN (7-18) mg/dl Creatinine (0.6-1.2) mg/dl Est Cr Clr Drug Dosing ml/min Est GFR ( Amer) Est GFR (Non-Af Amer) BUN/Creatinine Ratio (10-20) Glucose (70-99) mg/dl Calcium (8.5-10.1) mg/dl Total Bilirubin (0.2-1) mg/dl AST (15-37) U/L ALT (12-78) U/L Alkaline Phosphatase (45-117) U/L Troponin I (0-0.045) ng/ml Total Protein (6.4-8.2) gm/dl Albumin (3.4-5.0) gm/dl Globulin (2.5-4.0) gm/dl Albumin/Globulin Ratio (0.9-2) Specimen Hemolysis Urine Color Yellow Urine Appearance Cloudy A (Clear) Urine pH 8.5 H (4.5-7.5) Ur Specific [place] 1.015 (1.000-1.030) Urine Protein Trace H (Negative) Urine Glucose (UA) Negative (Negative) Urine Ketones Negative (Negative) Urine Blood Negative (Negative) Urine Nitrite Negative (Negative) Urine Bilirubin Negative (Negative) Urine Urobilinogen Negative (Negative) Ur Leukocyte Esterase 3+ H (Negative) Urine WBC (Auto) >30 H (0-5) /hpf Urine RBC (Auto) 0-4 (0-4) /hpf U Hyaline Cast (Auto) 1-5 (0-5) /lpf U Epithel Cells (Auto) 5-10 H (0-5) /lpf Urine Bacteria (Auto) Negative (Negative) POC Stool Occult Blood (Negative) COVID-19 Eval Order SARS-CoV-2, RNA, NAAT (NEGATIVE) Blood Type O Positive Blood Type Recheck Antibody Screen NEGATIVE 10/16/20 10/16/20 10/16/20 Range/Units 14:43 14:43 13:43 WBC (4.8-10.8) K/uL RBC (4.2-5.4) M/uL Hgb (12.0-16.0) g/dL Hct (37-47) % MCV (80-100) fL MCH (25-34) pg MCHC (32-36) g/dL RDW Std Deviation (36.4-46.3) fL RDW Coeff of Thierry (11.5-14.5) % Plt Count (130-400) K/uL MPV (7.4-10.4) fL Immature Gran % (Auto) % Neut % (Auto) % Lymph % (Auto) % [place] % (Auto) % Eos % (Auto) % Baso % (Auto) % Neut # (Auto) (1.4-6.5) K/uL Lymph # (Auto) (1.2-3.4) K/uL [place] # (Auto) (0.11-0.59) K/uL Eos # (Auto) (0-0.5) K/uL Baso # (Auto) (0-0.2) K/uL Immature Gran # (Auto) (0.00-0.02) K/uL PT (9.0-12.0) Seconds INR (0.9-1.1) APTT (21.0-31.0) Seconds PTT Ratio Sodium (136-145) mmol/L Potassium (3.5-5.1) mmol/L Chloride (98-107) mmol/L Carbon Dioxide (21-32) mmol/L Anion Gap (3-11) BUN (7-18) mg/dl Creatinine (0.6-1.2) mg/dl Est Cr Clr Drug Dosing ml/min Est GFR ( Amer) Est GFR (Non-Af Amer) BUN/Creatinine Ratio (10-20) Glucose (70-99) mg/dl Calcium (8.5-10.1) mg/dl Total Bilirubin (0.2-1) mg/dl AST (15-37) U/L ALT (12-78) U/L Alkaline Phosphatase (45-117) U/L Troponin I (0-0.045) ng/ml Total Protein (6.4-8.2) gm/dl Albumin (3.4-5.0) gm/dl Globulin (2.5-4.0) gm/dl Albumin/Globulin Ratio (0.9-2) Specimen Hemolysis Urine Color Urine Appearance (Clear) Urine pH (4.5-7.5) Ur Specific [place] (1.000-1.030) Urine Protein (Negative) Urine Glucose (UA) (Negative) Urine Ketones (Negative) Urine Blood (Negative) Urine Nitrite (Negative) Urine Bilirubin (Negative) Urine Urobilinogen (Negative) Ur Leukocyte Esterase (Negative) Urine WBC (Auto) (0-5) /hpf Urine RBC (Auto) (0-4) /hpf U Hyaline Cast (Auto) (0-5) /lpf U Epithel Cells (Auto) (0-5) /lpf Urine Bacteria (Auto) (Negative) POC Stool Occult Blood Positive A (Negative) COVID-19 Eval [facility] SARS-CoV-2, RNA, NAAT NEGATIVE (NEGATIVE) Blood Type Blood Type Recheck Antibody Screen 10/16/20 10/16/20 10/16/20 Range/Units 13:39 13:39 13:39 WBC 12.44 H (4.8-10.8) K/uL RBC 3.98 L (4.2-5.4) M/uL Hgb 12.3 (12.0-16.0) g/dL Hct 38.8 (37-47) % MCV 97.5 (80-100) fL MCH 30.9 (25-34) pg MCHC 31.7 L (32-36) g/dL RDW Std Deviation 56.7 H (36.4-46.3) fL RDW Coeff of Thierry 16.0 H (11.5-14.5) % Plt Count 365 (130-400) K/uL MPV 9.3 (7.4-10.4) fL Immature Gran % (Auto) 0.2 % Neut % (Auto) 90.4 % Lymph % (Auto) 5.7 % [place] % (Auto) 3.5 % Eos % (Auto) 0.1 % Baso % (Auto) 0.1 % Neut # (Auto) 11.26 H (1.4-6.5) K/uL Lymph # (Auto) 0.71 L (1.2-3.4) K/uL [place] # (Auto) 0.43 (0.11-0.59) K/uL Eos # (Auto) 0.01 (0-0.5) K/uL Baso # (Auto) 0.01 (0-0.2) K/uL Immature Gran # (Auto) 0.02 (0.00-0.02) K/uL PT 9.8 (9.0-12.0) Seconds INR 1.0 (0.9-1.1) APTT 21.1 (21.0-31.0) Seconds PTT Ratio 0.8 Sodium (136-145) mmol/L Potassium (3.5-5.1) mmol/L Chloride (98-107) mmol/L Carbon Dioxide (21-32) mmol/L Anion Gap (3-11) BUN (7-18) mg/dl Creatinine (0.6-1.2) mg/dl Est Cr Clr Drug Dosing ml/min Est GFR ( Amer) Est GFR (Non-Af Amer) BUN/Creatinine Ratio (10-20) Glucose (70-99) mg/dl Calcium (8.5-10.1) mg/dl Total Bilirubin (0.2-1) mg/dl AST (15-37) U/L ALT (12-78) U/L Alkaline Phosphatase (45-117) U/L Troponin I (0-0.045) ng/ml Total Protein (6.4-8.2) gm/dl Albumin (3.4-5.0) gm/dl Globulin (2.5-4.0) gm/dl Albumin/Globulin Ratio (0.9-2) Specimen Hemolysis Urine Color Urine Appearance (Clear) Urine pH (4.5-7.5) Ur Specific [place] (1.000-1.030) Urine Protein (Negative) Urine Glucose (UA) (Negative) Urine Ketones (Negative) Urine Blood (Negative) Urine Nitrite (Negative) Urine Bilirubin (Negative) Urine Urobilinogen (Negative) Ur Leukocyte Esterase (Negative) Urine WBC (Auto) (0-5) /hpf Urine RBC (Auto) (0-4) /hpf U Hyaline Cast (Auto) (0-5) /lpf U Epithel Cells (Auto) (0-5) /lpf Urine Bacteria (Auto) (Negative) POC Stool Occult Blood (Negative) COVID-19 Eval Order SARS-CoV-2, RNA, NAAT (NEGATIVE) Blood Type Blood Type Recheck O Positive Antibody Screen 10/16/20 10/16/20 Range/Units 13:39 13:39 WBC (4.8-10.8) K/uL RBC (4.2-5.4) M/uL Hgb (12.0-16.0) g/dL Hct (37-47) % MCV (80-100) fL MCH (25-34) pg MCHC (32-36) g/dL RDW Std Deviation (36.4-46.3) fL RDW Coeff of Thierry (11.5-14.5) % Plt Count (130-400) K/uL MPV (7.4-10.4) fL Immature Gran % (Auto) % Neut % (Auto) % Lymph % (Auto) % [place] % (Auto) % Eos % (Auto) % Baso % (Auto) % Neut # (Auto) (1.4-6.5) K/uL Lymph # (Auto) (1.2-3.4) K/uL [place] # (Auto) (0.11-0.59) K/uL Eos # (Auto) (0-0.5) K/uL Baso # (Auto) (0-0.2) K/uL Immature Gran # (Auto) (0.00-0.02) K/uL PT (9.0-12.0) Seconds INR (0.9-1.1) APTT (21.0-31.0) Seconds PTT Ratio Sodium 140 (136-145) mmol/L Potassium 5.2 H (3.5-5.1) mmol/L Chloride 107 (98-107) mmol/L Carbon Dioxide 26 (21-32) mmol/L Anion Gap 7.0 (3-11) BUN 35 H (7-18) mg/dl Creatinine 1.31 H (0.6-1.2) mg/dl Est Cr Clr Drug Dosing 24.0 ml/min Est GFR ( Amer) 44.1 Est GFR (Non-Af Amer) 38.1 BUN/Creatinine Ratio 27.0 H (10-20) Glucose 128 H (70-99) mg/dl Calcium 8.6 (8.5-10.1) mg/dl Total Bilirubin 0.4 (0.2-1) mg/dl AST 22 (15-37) U/L ALT 19 (12-78) U/L Alkaline Phosphatase 83 (45-117) U/L Troponin I 0.024 (0-0.045) ng/ml Total Protein 6.1 L (6.4-8.2) gm/dl Albumin 2.5 L (3.4-5.0) gm/dl Globulin 3.6 (2.5-4.0) gm/dl Albumin/Globulin Ratio 0.7 L (0.9-2) Specimen Hemolysis Urine Color Urine Appearance (Clear) Urine pH (4.5-7.5) Ur Specific [place] (1.000-1.030) Urine Protein (Negative) Urine Glucose (UA) (Negative) Urine Ketones (Negative) Urine Blood (Negative) Urine Nitrite (Negative) Urine Bilirubin (Negative) Urine Urobilinogen (Negative) Ur Leukocyte Esterase (Negative) Urine WBC (Auto) (0-5) /hpf Urine RBC (Auto) (0-4) /hpf U Hyaline Cast (Auto) (0-5) /lpf U Epithel Cells (Auto) (0-5) /lpf Urine Bacteria (Auto) (Negative) POC Stool Occult Blood (Negative) COVID-19 Eval Order SARS-CoV-2, RNA, NAAT (NEGATIVE) Blood Type Cancelled Blood Type Recheck Antibody Screen Cancelled Medications Administered Current Inpatient Medications Pantoprazole Sodium 40 mg/ (Dextrose) 100 mls @ 20 mls/hr IV Q5H [facility] Stop: 11/15/20 13:58 Last Admin: 10/17/20 06:36 Dose: 8 mg/hr, 20 mls/hr Documented by: Ondansetron HCl (Ondansetron Inj 2 Mg/Ml 2 Ml Vial) 4 mg IV Q6H PRN PRN Reason: Nausea Stop: 11/15/20 18:00
--- NOTE | 2020-10-17 11:27 | Electrocardiogram Report ---
Test Reason : Blood Pressure : / mmHG Vent. Rate : 099 BPM Atrial Rate : 099 BPM P-R Int : 136 ms QRS Dur : 070 ms QT Int : 350 ms P-R-T Axes : 078 039 067 degrees QTc Int : 449 ms Normal sinus rhythm Anteroseptal infarct , age undetermined Abnormal ECG When compared with ECG of 16-SEP-2019 13:53, Anteroseptal infarct is now Present T wave inversion no longer evident in Inferior leads Nonspecific T wave abnormality no longer evident in Anterolateral leads Confirmed by Wilfrido Hudson ([id number]) on 10/17/2020 11:26:56 AM Referred By: REFERRED SELF Confirmed By:Wilfrido Hudson
--- NOTE | 2020-10-17 12:21 | Gastrointestinal Consultation ---
Date of Consultation October 17, 2020 Assessment & Plan (1) Coffee ground emesis: (2) Acute GI bleeding: possible PUD vs AVM; HD stable at this time. Recs: --keep NPO --plan for EGD tomorrow morning to further evaluate --protonix 40 mg IV BID --trend H/H, transfuse prn hgb <7 --if further hematemesis/worsening sx's, please notify me Thank you for allowing me to participate in the care of this patient History of Present Illness Attending Physician: Ross Carter MD 80 yo female with hx DM2, HLD, COPD, SILVIA, CAD, GERD here after multiple episodes of coffee ground emesis. Patient says this happened while she was sleeping and doesn't remember it that well, saw dark brown stains on her clothes and bed. Has never had this issue before, denies hematemesis, hematochezia, melena, abdominal pains. EGD last year showed large hiatal hernia. Prior colonoscopy in 2019 with diverticulosis. She has not had any further vomiting since presenting to [facility]. labs reviewed, hgb noted to be 9.5 down from 12.3, BUN elevated at 27, stool occult blood positive. VSS. Allergies Allergy/AdvReac Type Severity Reaction Status Date / Time Penicillins Allergy Mild Rash Verified 10/16/20 15:10 Home Medications Medication Instructions Recorded Confirmed Type aspirin 81 mg PO QAM 02/10/19 10/16/20 History atorvastatin 80 mg PO QAM 02/10/19 10/16/20 History cholecalciferol (vitamin D3) 2,000 unit PO QAM 02/10/19 10/16/20 History [Vitamin D3] multivitamin 1 tab PO QAM 02/10/19 10/16/20 History PreserVision AREDS 1 tab PO QAM 06/06/19 10/16/20 History albuterol sulfate [ProAir HFA] 2 puff INHALATION Q6H PRN 06/06/19 10/16/20 History escitalopram oxalate 10 mg PO QAM 06/06/19 10/16/20 History omeprazole 40 mg PO QAM 09/30/19 10/16/20 History alprazolam 0.5 mg PO HS PRN 10/16/20 10/16/20 History Patient History Medical History Anxiety Bronchiectasis CAD (coronary artery disease) Cancer of left breast 2005--sx, chemo, radiation COPD (chronic obstructive pulmonary disease) Depression Diabetes mellitus, type II GERD (gastroesophageal reflux disease) Hyperlipidemia Myocardial Infarction 08/2017 "silent"--follows with Dr. Aguiar Sleep apnea CPAP--uses it from time to time Surgical History History of bilateral cataract extraction History of colonoscopy History of esophagogastroduodenoscopy (EGD) History of left breast biopsy malignant History of lumpectomy of left breast History of tooth extraction all teeth Family History Brother Family hx of colon cancer Other No family history of adverse response to anesthesia Social History Smoking Status: Current every day smoker Cigarettes Per Day: COUPLE CIGS A DAY-TRYING TO QUIT AGAIN-ON CHANTIX; Second Hand Exposure: Yes (FATHER SMOKED); Hx Alcohol Use: No Hx Substance Use: No Preferred Language: Ethiopian Communication Ability: Effective Handcrew Foreman Required: No Beliefs That Will Affect Care: None Current Living Situation: Alone Other Information That Helps Us Care for You: No Feels Safe at Home: Yes Safety Concerns: Feels Safe At This Time Assistive Devices: Walker Review of Systems Constitutional: no fever, no chills and no weight loss Eyes: as per Subjective / HPI Ear, Nose, Mouth, Throat: as per Subjective / HPI Respiratory: no dyspnea and no dyspnea on exertion Cardiovascular: no chest pain and no palpitations Gastrointestinal: as per Subjective / HPI Musculoskeletal: no joint pain and no swelling Integumentary: no rash and no lesions Neurologic: no numbness and no paresthesia Psychiatric: no depression and no anxiety Endocrine: no fatigue Hematologic / Lymphatic: no easy bleeding and no easy bruising Physical Exam Constitutional: WD/WN, vitals as above Eyes: EOM intact bilaterally Neck: normal visual inspection Respiratory: normal respiratory effort, lungs clear to auscultation Cardiovascular: RRR, no murmur, no edema Gastrointestinal (Abdomen): Inspection/Auscultation: abdomen normal to inspection; abdomen not distended Percussion/Palpation: abdomen soft; abdomen nontender and no hepatosplenomegaly Musculoskeletal: Extremities: no cyanosis Gait: normal gait Skin: no rashes, warm and dry Neurologic: moves all extremities Psychiatric: A+Ox3, euthymic affect Results & Data ([facility]) Vital Signs (Past 12 Hours) Vital Signs Temp Pulse Pulse Resp BP Pulse Ox 10/17/20 11:24 36.7 C 66 18 113/69 98 10/17/20 07:49 71 10/17/20 07:45 36.8 C 68 18 102/61 99 10/17/20 03:51 37.2 C 60 17 108/64 99 10/17/20 02:12 75 PG Care Time/CCT Total # of Minutes Spent Total Time Spent with Patient: Total time spent is greater than 50% in coordination of care (as documented) at patient's floor/unit and/or counseling patient: Coding Level of Care Code 19150 Initial Inpt Care Lvl 3 Diagnoses Coffee ground emesis K92.0 Acute GI bleeding K92.2
[2020-10-17 14:28] LABS: Hematocrit (blood only) 27.7 % (37-47)
[2020-10-17] MEDS: SODIUM CHLORIDE 0.9% 1000ML 1,000 ML IV SCH (16:28)
[2020-10-18 00:15] LABS: Hemoglobin 8.9 g/dL (12.0-16.0)
[2020-10-18] MEDS: PANTOprazole 40 MG in DEXTROSE 5% 100 ML IV SCH ×5 (02:34→21:16)
[2020-10-18] MEDS: SODIUM CHLORIDE 0.9% 1000ML 1,000 ML IV SCH ×2 (05:30→16:13)
[2020-10-18 06:19] LABS: Hematocrit (blood only) 30.1 % (37-47); Hemoglobin 9.6 g/dL (12.0-16.0); Mean Corpuscular Hemoglobin 30.8 pg (25-34); Mean Corpuscular Hgb Conc 31.9 g/dL (32-36); Mean Corpuscular Volume 96.5 fL (80-100); Mean Platelet Volume 8.9 fL (7.4-10.4); Platelet Count 287 K/uL (130-400); RDW Coefficient of Variation 15.9 % (11.5-14.5); RDW Standard Deviation 55.9 fL (36.4-46.3); Red Blood Count 3.12 M/uL (4.2-5.4); White Blood Count 4.17 K/uL (4.8-10.8)
[2020-10-18 06:50] LABS: BUN Creatinine Ratio 17.8 (10-20); Calcium 8.1 mg/dl (8.5-10.1); Creatinine Clr Calc Pharmacy 24.5 ml/min; Est GFR (African American) 49.6; Est GFR (Non-African American) 42.8; Potassium 4.3 mmol/L (3.5-5.1)
--- NOTE | 2020-10-18 08:20 | Procedure Note ---
Procedure Note Date of Service October 18, 2020 Proceed with EGD. risks/benefits and procedure discussed with patient, who agrees to proceed Coding
--- NOTE | 2020-10-18 08:20 | History & Physical Bridge Note ---
Date of Service October 18, 2020 History & Physical Bridge Note I have examined the patient, reviewed the History & Physical and in the interval since the performance of the History & Physical I have noted the following changes of clinical significance: no changes noted Proceed with EGD. risks/benefits and procedure discussed with patient, who agrees to proceed
--- NOTE | 2020-10-18 08:49 | Anesthesiology Consultation ---
Date of Service October 18, 2020 Assessment & Plan Chart Review Chart Review: Acceptable Risk for Surgery Consults Requested none ASA ASA3 Proposed Anesthesia Anesthesia Type: MAC Risk / Benefits Reviewed With: PT / POA / Parent / Guardian, Accepts Plan and Informed Consent Obtained Additional Comments: 10/16/20 LUZMARIA Jewell neg History Surgery Operation Date: 10/18/20 16:30 Proposed Procedures p Esophagogastroduodenoscopy Dr. Demarco - Daniel Demarco MD Height/Weight Height: 5 ft 5 in Weight: 41.9 kg Allergies Allergy/AdvReac Type Severity Reaction Status Date / Time Penicillins Allergy Mild Rash Verified 10/18/20 12:22 Medications Home Medications Medication Instructions Recorded Confirmed Last Taken aspirin 81 mg PO QAM 02/10/19 10/16/20 10/16/20 atorvastatin 80 mg PO QAM 02/10/19 10/16/20 10/16/20 cholecalciferol (vitamin D3) 2,000 unit PO QAM 02/10/19 10/16/20 10/16/20 [Vitamin D3] multivitamin 1 tab PO QAM 02/10/19 10/16/20 10/16/20 PreserVision AREDS 1 tab PO QAM 06/06/19 10/16/20 10/16/20 albuterol sulfate [ProAir HFA] 2 puff INHALATION Q6H PRN 06/06/19 10/16/20 10/16/20 escitalopram oxalate 10 mg PO QAM 06/06/19 10/16/20 10/16/20 omeprazole 40 mg PO QAM 09/30/19 10/16/20 10/16/20 alprazolam 0.5 mg PO HS PRN 10/16/20 10/16/20 Unknown Active Medications Generic Name Dose Route Start Last Admin Trade Name Freq PRN Reason Stop Dose Admin Pantoprazole Sodium 40 mg/ 100 mls @ 20 mls/hr 10/16/20 13:59 10/18/20 12:07 Dextrose IV 11/15/20 13:58 8 mg/hr Q5H MOLLY 20 mls/hr Administration 8 MG/HR Sodium Chloride 1,000 mls @ 80 mls/hr 10/17/20 16:00 10/18/20 05:30 Nss 1000ml IV 11/16/20 15:59 80 mls/hr .[id number] MOLLY Administration Ciprofloxacin 400 mg in 200 mls @ 100 mls/hr 10/18/20 10:00 10/18/20 10:53 Cipro / D5w IV 10/23/20 09:59 100 mls/hr Q12H MOLLY Administration Protocol NPO Date Last Intake of Fluids: 10/17/20 Last Intake of Fluids Comment: npo since admission Date Last Intake of Solids: 10/16/20 Past Medical History Medical History Anxiety Bronchiectasis CAD (coronary artery disease) Cancer of left breast 2005--sx, chemo, radiation COPD (chronic obstructive pulmonary disease) Depression Diabetes mellitus, type II GERD (gastroesophageal reflux disease) Hyperlipidemia Myocardial Infarction 08/2017 "silent"--follows with Dr. Aguiar Sleep apnea CPAP--uses it from time to time Past Family History Family History Brother Family hx of colon cancer Other No family history of adverse response to anesthesia Past Surgical History Surgical History History of bilateral cataract extraction History of colonoscopy History of esophagogastroduodenoscopy (EGD) History of left breast biopsy malignant History of lumpectomy of left breast History of tooth extraction all teeth Social History Smoking Status: Current every day smoker tobacco type: cigarettes Smoking cigarettes per day: COUPLE CIGS A DAY-TRYING TO QUIT AGAIN-ON [place] Hx Alcohol Use: No Hx Substance Use: No substance use type: does not use Physical Exam Vital Signs Last Vital Signs Temp 36.5 C 10/18/20 12:15 Pulse 66 10/18/20 12:15 Resp 18 10/18/20 12:15 BP 111/52 L 10/18/20 12:15 Pulse Ox 96 10/18/20 12:15 ENMT Mouth: + edentulous and + small oral opening; no TMJ abnormality Thyromental Distance: > or= 3.5 Finger Breadths Mallampati Class: III Neck normal visual inspection and trachea midline; neck extension not limited Respiratory normal respiratory effort Auscultation: lungs clear to auscultation bilaterally Cardiovascular Rate/Rhythm: regular rate and regular rhythm Heart Sounds: no murmur Musculoskeletal Spine: normal cervical ROM Extremities: full ROM of extremities Neurologic moves all extremities Psychiatric Orientation: alert and oriented x 3 Testing Laboratory Results 10/18/20 06:00 10/18/20 06:00 PT 9.8 Seconds (9.0-12.0) 10/16/20 13:39 INR 1.0 (0.9-1.1) 10/16/20 13:39 APTT 21.1 Seconds (21.0-31.0) 10/16/20 13:39 Urine Color Yellow 10/16/20 19:48 Urine Appearance Cloudy (Clear) A 10/16/20 19:48 Urine pH 8.5 (4.5-7.5) H 10/16/20 19:48 Ur Specific [place] 1.015 (1.000-1.030) 10/16/20 19:48 Urine Protein Trace (Negative) H 10/16/20 19:48 Urine Glucose (UA) Negative (Negative) 10/16/20 19:48 Urine Ketones Negative (Negative) 10/16/20 19:48 Urine Nitrite Negative (Negative) 10/16/20 19:48 Ur Leukocyte Esterase 3+ (Negative) H 10/16/20 19:48 Urine WBC (Auto) >30 /hpf (0-5) H 10/16/20 19:48 Urine RBC (Auto) 0-4 /hpf (0-4) 10/16/20 19:48 U Hyaline Cast (Auto) 1-5 /lpf (0-5) 10/16/20 19:48 U Epithel Cells (Auto) 5-10 /lpf (0-5) H 10/16/20 19:48 Urine Bacteria (Auto) Negative (Negative) 10/16/20 19:48 Blood Type O Positive 10/16/20 14:48 Antibody Screen NEGATIVE 10/16/20 14:48 10/16/20 19:48 Urine Culture - Final Urine,Clean Catch Escherichia coli Electrocardiogram Date: 10/16/20 Findings: + NSR @ (99) Normal sinus rhythm Anteroseptal infarct , age undetermined Chest X-Ray Date: 09/16/20 Oblique films the chest redemonstrate a nonspecific 1 cm opacity at the left lung base. CT scanning is recommended in follow-up to confirm or refute the presence of a true parenchymal abnormality
[2020-10-18] MEDS ORDERED: CIPROFLOXACIN / D5W 400 MG/200 ML BAG IV SCH (10:00)
--- NOTE | 2020-10-18 11:01 | Hospitalist Progress Note ---
Date of Service October 18, 2020 Assessment & Plan (1) Coffee ground emesis: (2) CAD (coronary artery disease): (3) GERD (gastroesophageal reflux disease): (4) COPD (chronic obstructive pulmonary disease): (5) Depression: (6) Anxiety: (7) Sleep apnea: This is an 80-year-old female with PMH of CAD, GERD, COPD, bronchiectasis, anxiety, depression, SILVIA and other medical problems listed below who presents with caregiver after multiple episodes of coffee-ground emesis. Coffee ground emesis Reported episodes overnight - attempting to reach [facility] for more info History of EGD in September 2019 with large hiatal hernia. Prescribed omeprazole. History of colonoscopy in 2018 with adenomatous polyp Hemodynamically stable. Mild leukocytosis of 12.44, hgb 12.3 on admission. BUN elevated at 35. Cr 1.31. Stool occult blood positive on admission Continue IV protonix bolus/drip, NPO, routine GI consult, gentle IV fluids, monitor H&H Hgb 9.5 this AM, hemodynamically stable, will cont. to closely monitor No episodes or emesis or BMs since admission GI - Plan for EGD today (10/18) Acute blood loss anemia and dilutional anemia - secondary to likely GI bleed and IVF Hgb 9.5 stable from yesterday - plan for EGD today, cont. to closely monitor, no need for blood transfusion at this time CAD No chest pain, no acute EKG changes Hold aspirin, continue statin COPD Tobacco use disorder Smoking for 50+ years, decreased to 0.50 ppd Continue albuterol inh PRN (likely) CKD stage III - cont. to monitor - avoid nephrotoxic agents - cont. to follow up as outpt Anxiety Depression Continue Lexapro, Xanax PRN SILVIA Not using CPAP currently Severe protein-calorie malnutrition BMI 15.4 - thin elderly female on physical exam - nutrition should be addressed after acute GI bleed eval and management, currently NPO for the procedure DVT Ppx: SCDs Code status: FULL PCP: Dr. Nieves Dispo: to be determined Admission and Anticipated Discharge Date Admission Date: October 17, 2020 Subjective Pt seen in follow up of pos. upper GI bleed Admitted as witnessed by caregiver coffee-ground emesis Currently laying in bed, in NAD, denies having any more emesis since admission No BM Hgb down 9.5 but stable from yesterday GI consulted - plan for EGD today UA negative however ucltx positive, cipro started Review of Systems Review of Systems: All systems reviewed & are unremarkable except as noted in HPI & below Constitutional: no fever and no chills Respiratory: no cough and no dyspnea Cardiovascular: no chest pain and no palpitations Gastrointestinal: no abdominal pain, no nausea and no vomiting Physical Exam Physical Exam: General Appearance: vitals as above, NAD, thin, laying in bed, pleasant, conversing appropriately Head: normocephalic, atraumatic Eyes: normal inspection, PERRL,EOMI, conjunctivae normal, anicteric sclerae ENT: external ear and nose normal, oropharynx normal Neck: normal visual inspection, trachea midline, no thyromegaly Respiratory: normal respiratory effort, lungs clear to auscultation, no wheeze, rales, rhonchi. No accessory muscle use Cardiovascular: regular rate, rhythm, no murmur, normal peripheral pulses, no BLE edema. Vessels: no JVD Chest: normal inspection of chest Abdomen/GI: normal bowel sounds, thin, soft, nontender, nondistended Extremities/Musculoskeletal: no cyanosis or clubbing, extremities motor strength 5/5 Neurologic: PERRL, EOMI, no face palsy, no dysarthria, CN's II-XI intact bilaterally and moves all extremities Psychiatric: A+Ox3 but not to situation, euthymic affect Skin: no rashes, normal color, warm/dry. Results & Data Results & Data ([facility]) Vital Signs (Past 12 Hours) Vital Signs Temp Pulse Pulse Resp BP BP Pulse Ox 10/18/20 07:30 58 L 10/18/20 07:27 37.0 C 60 18 127/70 98 10/18/20 03:02 36.9 C 68 18 101/53 L 97 10/18/20 02:24 60 Laboratory Results 10/18/20 10/18/20 10/18/20 Range/Units 06:00 06:00 00:04 WBC 4.17 L (4.8-10.8) K/uL RBC 3.12 L (4.2-5.4) M/uL Hgb 9.6 L 8.9 L (12.0-16.0) g/dL Hct 30.1 L 28.0 L (37-47) % MCV 96.5 (80-100) fL MCH 30.8 (25-34) pg MCHC 31.9 L (32-36) g/dL RDW Std Deviation 55.9 H (36.4-46.3) fL RDW Coeff of Thirery 15.9 H (11.5-14.5) % Plt Count 287 (130-400) K/uL MPV 8.9 (7.4-10.4) fL Sodium 141 (136-145) mmol/L Potassium 4.3 (3.5-5.1) mmol/L Chloride 110 H (98-107) mmol/L Carbon Dioxide 23 (21-32) mmol/L Anion Gap 8.0 (3-11) BUN 21 H (7-18) mg/dl Creatinine 1.19 (0.6-1.2) mg/dl Est Cr Clr Drug Dosing 24.5 ml/min Est GFR ( Amer) 49.6 Est GFR (Non-Af Amer) 42.8 BUN/Creatinine Ratio 17.8 (10-20) Glucose 68 L (70-99) mg/dl Calcium 8.1 L (8.5-10.1) mg/dl 10/17/20 Range/Units 14:04 WBC (4.8-10.8) K/uL RBC (4.2-5.4) M/uL Hgb 9.0 L (12.0-16.0) g/dL Hct 27.7 L (37-47) % MCV (80-100) fL MCH (25-34) pg MCHC (32-36) g/dL RDW Std Deviation (36.4-46.3) fL RDW Coeff of Thierry (11.5-14.5) % Plt Count (130-400) K/uL MPV (7.4-10.4) fL Sodium (136-145) mmol/L Potassium (3.5-5.1) mmol/L Chloride (98-107) mmol/L Carbon Dioxide (21-32) mmol/L Anion Gap (3-11) BUN (7-18) mg/dl Creatinine (0.6-1.2) mg/dl Est Cr Clr Drug Dosing ml/min Est GFR ( Amer) Est GFR (Non-Af Amer) BUN/Creatinine Ratio (10-20) Glucose (70-99) mg/dl Calcium (8.5-10.1) mg/dl Medications Administered Current Inpatient Medications Pantoprazole Sodium 40 mg/ (Dextrose) 100 mls @ 20 mls/hr IV Q5H MOLLY Stop: 11/15/20 13:58 Last Admin: 10/18/20 07:36 Dose: 8 mg/hr, 20 mls/hr Documented by: Sodium Chloride (Nss 1000ml) 1,000 mls @ 80 mls/hr IV .[id number] MOLLY Stop: 11/16/20 15:59 Last Admin: 10/18/20 05:30 Dose: 80 mls/hr Documented by: Ciprofloxacin (Cipro / D5w) 400 mg in 200 mls @ 100 mls/hr IV Q12H MOLLY; P rotocol Stop: 10/23/20 09:59 Last Admin: 10/18/20 10:53 Dose: 100 mls/hr Documented by: Ondansetron HCl (Ondansetron Inj 2 Mg/Ml 2 Ml Vial) 4 mg IV Q6H PRN PRN Reason: Nausea Stop: 11/15/20 18:00
[2020-10-18] MEDS ORDERED: PROPOFOL IV EMULSION 10 MG/ML 20 ML VIAL IV ONE (12:47)
[2020-10-18] MEDS ORDERED: LIDOCAINE HCL 2% 2 ML VIAL/AMP(20MG/ML) INFIL ONE (12:47)
--- NOTE | 2020-10-18 13:08 | GI REPORT ---
Patient Name: Alexandra Agudelo Procedure Date: 10/18/2020 12:34 PM Date of : 1940 Admit Type: Inpatient Age: 80 Gender: Female Attending MD: Daniel Demarco MD Procedure: Upper GI endoscopy Providers: Daniel Demarco MD Referring MD: Referred Self Indications: Coffee-ground emesis Medicines: Monitored Anesthesia Care Complications: No immediate complications. Estimated blood loss: None. Estimated Blood Loss: Estimated blood loss: none. Procedure: Pre-Anesthesia Assessment: - Prior Anticoagulants: The patient has taken no previous anticoagulant or antiplatelet agents. - ASA Grade Assessment: II - A patient with mild systemic disease. After obtaining informed consent, the endoscope was passed under direct vision. Throughout the procedure, the patient's blood pressure, pulse, and oxygen saturations were monitored continuously. The Endoscope was introduced through the mouth, and advanced to the second part of duodenum. The upper GI endoscopy was accomplished without difficulty. The patient tolerated the procedure well. Findings: Few linear esophageal ulcers with no stigmata of recent bleeding were found in the distal esophagus. Biopsies were taken with a cold forceps for histology. Estimated blood loss: none. The entire examined stomach was normal. The duodenal bulb and second portion of the duodenum were normal. Impression: - Esophageal ulcers with no stigmata of recent bleeding. Biopsied. - Normal stomach. - Normal duodenal bulb and second portion of the duodenum. Recommendation: - Return patient to [facility]. - Resume previous diet today. -protonix 40 mg BID for 3 months, -repeat EGD in 3 months Daniel Demarco MD 10/18/2020 1:08:31 PM This report has been signed electronically. Note Initiated On: 10/18/2020 12:34 PM Number of Addenda: 0 I attest to the content of the Intraoperative Record and orders documented therein, exceptions below {[id number]}
--- NOTE | 2020-10-18 13:28 | Anesthesiology Progress Note ---
Date of Service October 18, 2020 Anesthesia Post Procedure Vital Signs Vital Signs: Temp Pulse Pulse Resp BP BP Pulse Ox 10/18/20 13:21 60 18 103/52 L 98 10/18/20 13:06 84 18 108/58 L 98 10/18/20 12:15 36.5 C 66 18 111/52 L 96 10/18/20 11:09 36.6 C 54 L 18 103/62 100 10/18/20 07:30 58 L 10/18/20 07:27 37.0 C 60 18 127/70 98 10/18/20 03:02 36.9 C 68 18 101/53 L 97 10/18/20 02:24 60 10/17/20 22:05 36.9 C 68 16 117/67 98 10/17/20 19:36 36.8 C 58 L 18 113/71 98 10/17/20 15:28 37.4 C 70 18 100/50 L 98 10/17/20 15:12 67 Transfer of Care Handoff Completed per policy Notes Mental Status: alert / awake / arousable Patient Amnestic to Procedure: Yes Nausea / Vomiting: adequately controlled Pain: adequately controlled Airway Patency, RR, SpO2: stable & adequate BP & HR: stable & adequate Hydration State: stable & adequate Anesthetic Complications: no major complications apparent and Pt Satisfied with anesthetic care
[2020-10-19] MEDS: PANTOprazole 40 MG in DEXTROSE 5% 100 ML IV SCH ×2 (01:46→06:38)
[2020-10-19] MEDS: SODIUM CHLORIDE 0.9% 1000ML 1,000 ML IV SCH (04:00)
[2020-10-19] MEDS ORDERED: CIPROFLOXACIN / D5W 400 MG/200 ML BAG IV SCH (04:00)
[2020-10-19] MEDS ORDERED: cefTRIAXone SODIUM 1,000 MG in DEXTROSE 5% 50 ML IV SCH (04:00)
[2020-10-19 06:39] LABS: Hematocrit (blood only) 33.4 % (37-47); Hemoglobin 10.8 g/dL (12.0-16.0); Mean Corpuscular Hemoglobin 31.1 pg (25-34); Mean Corpuscular Hgb Conc 32.3 g/dL (32-36); Mean Corpuscular Volume 96.3 fL (80-100); Mean Platelet Volume 9.2 fL (7.4-10.4); Platelet Count 352 K/uL (130-400); RDW Coefficient of Variation 15.6 % (11.5-14.5); RDW Standard Deviation 54.6 fL (36.4-46.3); Red Blood Count 3.47 M/uL (4.2-5.4); White Blood Count 5.87 K/uL (4.8-10.8)
[2020-10-19 07:11] LABS: BUN Creatinine Ratio 14.4 (10-20); Calcium 8.6 mg/dl (8.5-10.1); Creatinine Clr Calc Pharmacy 23.7 ml/min; Est GFR (African American) 48.1; Est GFR (Non-African American) 41.5; Potassium 3.8 mmol/L (3.5-5.1)
[2020-10-19] MEDS ORDERED: PANTOprazole 40 MG TAB PO SCH (09:00)
--- NOTE | 2020-10-19 10:02 | Hospitalist Progress Note ---
Date of Service October 19, 2020 Assessment & Plan (1) Coffee ground emesis: (2) CAD (coronary artery disease): (3) GERD (gastroesophageal reflux disease): (4) COPD (chronic obstructive pulmonary disease): (5) Depression: (6) Anxiety: (7) Sleep apnea: This is an 80-year-old female with PMH of CAD, GERD, COPD, bronchiectasis, anxiety, depression, SILVIA and other medical problems listed below who presents with caregiver after multiple episodes of coffee-ground emesis. Coffee ground emesis Reported episodes overnight - attempting to reach [facility] for more info History of EGD in September 2019 with large hiatal hernia. Prescribed omeprazole. History of colonoscopy in 2018 with adenomatous polyp Hemodynamically stable. Mild leukocytosis of 12.44, hgb 12.3 on admission. BUN elevated at 35. Cr 1.31. Stool occult blood positive on admission Continued IV protonix bolus/drip, NPO, routine GI consult, gentle IV fluids, monitor H&H Hgb 9.5 next day, hemodynamically stable, cont. to closely monitor No episodes of emesis since admission Now s/p EGD (10/18) found esophageal ulcers, no bleed, recommended pantoprazole 40 mg BID for 3 months This AM bright red blood per rectum when had BM, internal hemorrhoids identified and anusol prescribed by GI Hgb actually improved at 10.8 (10/19/20) Follow up w/ GI within 2 weeks. Acute blood loss anemia and dilutional anemia - secondary to likely GI bleed and IVF Hgb 10.8 stable and improved from yesterday - s/p EGD - no need for blood transfusion at this time CAD No chest pain, no acute EKG changes Hold aspirin initially, resume on DC, continue statin COPD Tobacco use disorder Smoking for 50+ years, decreased to 0.50 ppd Continue albuterol inh PRN (likely) CKD stage III - cont. to monitor - avoid nephrotoxic agents - cont. to follow up as outpt Anxiety Depression Continue Lexapro, Xanax PRN SILVIA Not using CPAP currently Severe protein-calorie malnutrition BMI 15.4 - thin elderly female on physical exam - nutrition should be addressed after acute GI bleed eval and management, was NPO for the procedure DVT Ppx: SCDs Code status: FULL PCP: Dr. Nieves Dispo: home w/ helpers Admission and Anticipated Discharge Date Admission Date: October 17, 2020 Subjective Pt seen in a follow up of GI bleed Underwent EGD yesterday and esophageal ulcers found, no bleeding. PO PPI recommended Now witnessed by AQUILES SÁNCHEZ w/ by bright red blood per rectum. Hgb actually improved from yesterday, at 10.8. Pt has no abd. pain, nausea, chest pain, shortness of breath or dizziness. Seen by GI, internal hemorrhoids identified, anusol suppository started. Follow up w/ GI within 2 weeks. Review of Systems Review of Systems: All systems reviewed & are unremarkable except as noted in HPI & below Constitutional: no fever and no chills Respiratory: no cough and no dyspnea Cardiovascular: no chest pain and no palpitations Gastrointestinal: + blood in stools; no abdominal pain, no nausea and no vomiting Genitourinary: no dysuria Physical Exam Physical Exam: General Appearance: vitals as above, NAD, thin, laying in bed, pleasant, conversing appropriately Head: normocephalic, atraumatic Eyes: normal inspection, PERRL,EOMI, conjunctivae normal, anicteric sclerae ENT: external ear and nose normal, oropharynx normal Neck: normal visual inspection, trachea midline, no thyromegaly Respiratory: normal respiratory effort, lungs clear to auscultation, no wheeze, rales, rhonchi. No accessory muscle use Cardiovascular: regular rate, rhythm, no murmur, normal peripheral pulses, no BLE edema. Vessels: no JVD Chest: normal inspection of chest Abdomen/GI: normal bowel sounds, thin, soft, nontender, nondistended Extremities/Musculoskeletal: no cyanosis or clubbing, extremities motor strength 5/5 Neurologic: PERRL, EOMI, no face palsy, no dysarthria, CN's II-XI intact bilaterally and moves all extremities Psychiatric: A+Ox3 but not to situation, euthymic affect Skin: no rashes, normal color, warm/dry. Results & Data Results & Data ([facility]) Vital Signs (Past 12 Hours) Vital Signs Temp Pulse Pulse Resp BP Pulse Ox 10/19/20 07:30 59 L 10/19/20 07:29 36.7 C 51 L 18 93/52 L 99 10/19/20 04:00 36.5 C 58 L 18 99/50 L 100 10/19/20 01:24 61 10/18/20 23:00 36.9 C 63 18 109/58 L 96 Laboratory Results 10/19/20 10/19/20 Range/Units 06:12 06:12 WBC 5.87 (4.8-10.8) K/uL RBC 3.47 L (4.2-5.4) M/uL Hgb 10.8 L (12.0-16.0) g/dL Hct 33.4 L (37-47) % MCV 96.3 (80-100) fL MCH 31.1 (25-34) pg MCHC 32.3 (32-36) g/dL RDW Std Deviation 54.6 H (36.4-46.3) fL RDW Coeff of Thierry 15.6 H (11.5-14.5) % Plt Count 352 (130-400) K/uL MPV 9.2 (7.4-10.4) fL Sodium 142 (136-145) mmol/L Potassium 3.8 (3.5-5.1) mmol/L Chloride 111 H (98-107) mmol/L Carbon Dioxide 25 (21-32) mmol/L Anion Gap 6.0 (3-11) BUN 18 (7-18) mg/dl Creatinine 1.22 H (0.6-1.2) mg/dl Est Cr Clr Drug Dosing 23.7 ml/min Est GFR ( Amer) 48.1 Est GFR (Non-Af Amer) 41.5 BUN/Creatinine Ratio 14.4 (10-20) Glucose 86 (70-99) mg/dl Calcium 8.6 (8.5-10.1) mg/dl Medications Administered Current Inpatient Medications Sodium Chloride (Nss 1000ml) 1,000 mls @ 80 mls/hr IV .[id number] [facility] Stop: 11/16/20 15:59 Last Admin: 10/19/20 04:00 Dose: 80 mls/hr Documented by: Ceftriaxone Sodium 1,000 mg/ (Dextrose) 50 mls @ 100 mls/hr IV Q24H [facility]; Protocol Stop: 10/24/20 03:59 Last Infusion: 10/19/20 04:35 Dose: Infused Documented by: Ondansetron HCl (Ondansetron Inj 2 Mg/Ml 2 Ml Vial) 4 mg IV Q6H PRN PRN Reason: Nausea Stop: 11/15/20 18:00 Pantoprazole Sodium (Pantoprazole 40 Mg Tab) 40 mg PO BID MOLLY Stop: 11/18/20 08:59 Last Admin: 10/19/20 09:13 Dose: 40 mg Documented by:
--- NOTE | 2020-10-19 10:09 | Gastroenterology Progress Note ---
Date of Service October 19, 2020 Assessment & Plan (1) Esophageal ulcer: (2) Coffee ground emesis: (3) Acute GI bleeding: Status post EGD yesterday with new onset of bright red rectal bleeding and internal hemorrhoids. 1. Continue Pantoprazole 40 mg BID. 2. High fiber diet. 3. Start Anusol-HC 25 mg suppositories MI BID x 2 weeks. 4. Follow up in our office within 2 weeks upon discharge. Admission and Anticipated Discharge Date Admission Date: October 17, 2020 Subjective Spoke with nurse Leona. Patient with witnessed brown bm followed by bright red blood per rectum. Patient states she has never had rectal bleeding in the past. No anal pain. No painful bm. EGD yesterday with esophageal ulcers. On BID PPI which is recommended for 3 months with plan for follow up EGD at that time. Hemoglobin has improved from yesterday and is noted to be 10.8. Review of Systems Gastrointestinal: as per Subjective / HPI Neurologic: no dizziness and no syncope Physical Exam Constitutional: WD/WN, vitals as above well developed and well nourished Respiratory: normal respiratory effort Gastrointestinal (Abdomen): Rectal Exam: + abnormal sphincter tone (minimal anal tone) and + hemorrhoids (partial prolapsing internal hemorrhoid); no rectal tenderness, no rectal fissure and no rectal lesions Results & Data Results & Data ([facility]) Vital Signs (Past 12 Hours) Vital Signs Temp Pulse Pulse Resp BP Pulse Ox 10/19/20 07:30 59 L 10/19/20 07:29 36.7 C 51 L 18 93/52 L 99 10/19/20 04:00 36.5 C 58 L 18 99/50 L 100 10/19/20 01:24 61 10/18/20 23:00 36.9 C 63 18 109/58 L 96 Laboratory Results Abnormal lab results 10/19/20 10/19/20 Range/Units 06:12 06:12 RBC 3.47 L (4.2-5.4) M/uL Hgb 10.8 L (12.0-16.0) g/dL Hct 33.4 L (37-47) % RDW Std Deviation 54.6 H (36.4-46.3) fL RDW Coeff of Thierry 15.6 H (11.5-14.5) % Chloride 111 H (98-107) mmol/L Creatinine 1.22 H (0.6-1.2) mg/dl PG Care Time/CCT Total # of Minutes Spent Total Time Spent with Patient: Total time spent is greater than 50% in coordination of care (as documented) at patient's floor/unit and/or counseling patient: Coding Level of Care Code 90653 Subseq Hosp Care Lvl 3 Diagnoses Esophageal ulcer K22.10 Coffee ground emesis K92.0 Acute GI bleeding K92.2
[2020-10-19] MEDS ORDERED: HYDROCORTISONE ACETATE 25 MG SUPP PR SCH (10:30)
--- NOTE | 2020-10-19 14:59 | Discharge Summary ---
Date of Service October 19, 2020 Admission HPI Per Admitting Provider This is an 80-year-old female with PMH of type 2 diabetes, dyslipidemia, COPD, bronchiectasis, SILVIA, CAD, GERD and other medical problems listed below who presents with caregiver after multiple episodes of coffee-ground emesis during the night. Patient vaguely remembered this occurring once she woke up and saw dark brown stains on pajamas and sheets. Denies this occurring previously. No abdominal pain. Last bowel movement was yesterday morning and describes as normal. No hematochezia or melena. No fever, chills, lightheadedness, headache, chest pain, SOB, nausea, dysuria or hematuria. Does not know medications off hand but asked that I call caregivers to discuss. Knows that she takes a baby aspirin daily. Also with significant smoking history of 50+ years. Currently smoking 1/2 ppd. History of EGD in September 2019 with large hiatal hernia. Prescribed omeprazole. History of colonoscopy in 2018 with adenomatous polyp. In ED, patient is afebrile and hemodynamically stable. Mild leukocytosis of 12.44, hgb stable at 12.3. Potassium 5.2. BUN elevated at 35. Cr 1.31. Stool occult blood positive Admission Exam Per Admitting Provider General Appearance: vitals as above, NAD, thin, sitting up in bed, pleasant, conversing appropriately Head: normocephalic, atraumatic Eyes: normal inspection, PERRL, conjunctivae normal, anicteric sclerae ENT: external ear and nose normal, oropharynx normal Neck: normal visual inspection, trachea midline, no thyromegaly Respiratory: normal respiratory effort, lungs clear to auscultation, no wheeze, rales, rhonchi. No accessory muscle use Cardiovascular: regular rate, rhythm, no murmur, normal peripheral pulses, no BLE edema. Vessels: no JVD Chest: normal inspection of chest Abdomen/GI: normal bowel sounds, soft, nontender, no hepatosplenomegaly Extremities/Musculoskeletal: no cyanosis or clubbing, extremities motor strength 5/5 Neurologic: PERRL, EOMI, accommodation nl, no face palsy, no dysarthria, CN's II-XI intact bilaterally and moves all extremities Psychiatric: A+Ox3 but not to situation, euthymic affect Skin: no rashes, normal color, warm/dry. + Erythema on dorsal aspect of R foot with bandage in place. No purulant drainage or warmth to touch Principal Diagnosis GI bleed esophageal ulcers internal hemorrhoids Discharge Exam General Appearance: vitals as above, NAD, thin, laying in bed, pleasant, conversing appropriately Head: normocephalic, atraumatic Eyes: normal inspection, PERRL,EOMI, conjunctivae normal, anicteric sclerae ENT: external ear and nose normal, oropharynx normal Neck: normal visual inspection, trachea midline, no thyromegaly Respiratory: normal respiratory effort, lungs clear to auscultation, no wheeze, rales, rhonchi. No accessory muscle use Cardiovascular: regular rate, rhythm, no murmur, normal peripheral pulses, no BLE edema. Vessels: no JVD Chest: normal inspection of chest Abdomen/GI: normal bowel sounds, thin, soft, nontender, nondistended Extremities/Musculoskeletal: no cyanosis or clubbing, extremities motor strength 5/5 Neurologic: PERRL, EOMI, no face palsy, no dysarthria, CN's II-XI intact bilaterally and moves all extremities Psychiatric: A+Ox3 but not to situation, euthymic affect Skin: no rashes, normal color, warm/dry. Discharge Data Allergies Allergy/AdvReac Type Severity Reaction Status Date / Time Penicillins Allergy Mild Rash Verified 10/18/20 12:22 Consultations 10/16/20 14:42 ED Decision to Admit Stat 10/16/20 18:01 Consult Gastroenterology Routine Procedures Performed Operation Date: 10/18/20 16:30 Actual Procedures p EGD Biopsy Cytology - Daniel Demarco MD Hospital Course (1) Coffee ground emesis: (2) CAD (coronary artery disease): (3) GERD (gastroesophageal reflux disease): (4) COPD (chronic obstructive pulmonary disease): (5) Depression: (6) Anxiety: (7) Sleep apnea: This is an 80-year-old female with PMH of CAD, GERD, COPD, bronchiectasis, anxie ty, depression, SILVIA and other medical problems listed below who presents with caregiver after multiple episodes of coffee-ground emesis. Coffee ground emesis Reported episodes overnight - attempting to reach [facility] for more info History of EGD in September 2019 with large hiatal hernia. Prescribed omeprazole. History of colonoscopy in 2019 with adenomatous polyp Hemodynamically stable. Mild leukocytosis of 12.44, hgb 12.3 on admission. BUN elevated at 35. Cr 1.31. Stool occult blood positive on admission Continued IV protonix bolus/drip, NPO, routine GI consult, gentle IV fluids, monitor H&H Hgb 9.5 next day, hemodynamically stable, cont. to closely monitor No episodes of emesis since admission Now s/p EGD (10/18) found esophageal ulcers, no bleed, recommended pantoprazole 40 mg BID for 3 months This AM bright red blood per rectum when had BM, internal hemorrhoids identified and anusol prescribed by GI Hgb actually improved at 10.8 (10/19/20) Follow up w/ GI within 2 weeks. Acute blood loss anemia and dilutional anemia - secondary to likely GI bleed and IVF Hgb 10.8 stable and improved from yesterday - s/p EGD - no need for blood transfusion at this time CAD No chest pain, no acute EKG changes Hold aspirin initially, resume on DC, continue statin COPD Tobacco use disorder Smoking for 50+ years, decreased to 0.50 ppd Continue albuterol inh PRN (likely) CKD stage III - cont. to monitor - avoid nephrotoxic agents - cont. to follow up as outpt Anxiety Depression Continue Lexapro, Xanax PRN SILVIA Not using CPAP currently Severe protein-calorie malnutrition BMI 15.4 - thin elderly female on physical exam - nutrition should be addressed after acute GI bleed eval and management, was NPO for the procedure DVT Ppx: SCDs Code status: FULL PCP: Dr. Nieves Dispo: home w/ helpers Total Time Total Time Spent Total Time Spent (In Minutes): 37 Total Time Includes: Examination of the Patient, Discharge Planning, Medication Reconciliation and Communication With Other Providers Discharge Plan Discharge Items Patient Disposition: Home - Home Health Services Reason For Visit: GI BLEED Discharge Diagnosis: GI bleed esophageal ulcers internal hemorrhoids Activity: Per Instructions section Non-emergency contact: Primary Care Provider and Implementation Engineer Call non-emergency contact if: you have any medication questions and your symptoms worsen Follow-up/Referrals: Bandar Nieves MD [Primary Care Provider] - (Date & Time 10/21/2020 12:20 PM Provider Bandar Nieves III, MD [facility] ) Diet: Regular Addtl Attending Provider Instructions: Take pantoprazole 40 mg twice a day (instead of omeprazole). Take ciprofloxacin twice a day for the next 2 days. Use anusol suppositories as prescribed for hemorrhoids. Follow up with family doctor on 10/21/2020. Follow up with Gastroenterology within 2 weeks, you will be contacted about the appointment. Pending Studies at Discharge: No Stand-Alone Forms: [facility], Smoking Cessation Medications and DC Order Prescriptions: New pantoprazole 40 mg Tablet,Delayed Release (Dr/Ec) 40 mg PO BID 30 Days Qty: 60 RF: 0 hydrocortisone acetate [Anucort-HC] 25 mg Suppository 25 mg FL BID 14 Days Qty: 24 RF: 0 ciprofloxacin HCl 500 mg tablet 500 mg PO BID 2 Days Qty: 4 RF: 0 Continued multivitamin Tablet 1 tab PO QAM RF: 0 atorvastatin 40 mg Tablet 80 mg PO QAM RF: 0 aspirin 81 mg Tablet,Delayed Release (Dr/Ec) 81 mg PO QAM RF: 0 cholecalciferol (vitamin D3) [Vitamin D3] 2,000 unit Tablet 2,000 unit PO QAM RF: 0 albuterol sulfate [ProAir HFA] 90 mcg/actuation Hfa Aerosol Inhaler 2 puff INHALATION Q6H PRN (Reason: Shortness Of Breath) RF: 0 escitalopram oxalate 10 mg Tablet 10 mg PO QAM RF: 0 PreserVision AREDS [id number] Tablet 1 tab PO QAM RF: 0 alprazolam 0.5 mg tablet 0.5 mg PO HS PRN (Reason: Anxiety) RF: 0 Discontinued omeprazole 40 mg Capsule,Delayed Release(Dr/Ec) 40 mg PO QAM RF: 0 Discharge Orders: Discharge Order (Routine); Ordered 10/19/20 Ordered By: Ross Carter Admission Data Admit Date/Time: 10/17/20 14:13 Attending Provider: Ross Carter Admit Provider: Ross Carter Primary Care Provider: Bandar Nieves Other Providers: Daniel Demarco ; Ross Carter Other Interventions: Discharge Summary Assessment (RN) Last Done: 10/19/20 12:00
== END 2020-10-19 16:54 | disposition home health service (06) | DRG 380 ==
LOC: 2N 13:18 → ED 13:18 → 2N 17:07

== ENCOUNTER 2022-04-05 09:08 | Inpatient (IN) ==
[2022-04-05] MEDS ORDERED: ACETAMINOPHEN 500 MG TAB PO STA (09:23)
[2022-04-05] MEDS ORDERED: CEFEPIME 2,000 MG/20 ML VIAL IV STA (09:23)
[2022-04-05] MEDS ORDERED: SODIUM CHLORIDE 0.9% 1000ML 1,000 ML IV SCH (09:30)
--- NOTE | 2022-04-05 09:30 | Emergency Department Note ---
Impression & Plan Weakness, Fall, Acute dehydration, COVID-19, Elevated troponin ED Provider Note NAME: LIZETTE COREA AGE: 81 SEX: F : 1940 ARRIVES VIA: Ambulance INFORMANT: [Patient][nursing] ED PROVIDER(S): [Colby Burch MD] CHIEF COMPLAINT: Weakness, vertigo HISTORY OF PRESENT ILLNESS: The patient is an 81-year-old female who presents with around 2 or 3 weeks of weakness, dizziness and what she thinks may be vertigo. She has fallen 3 or 4 times. She does live alone. She denies any injury from the fall. She typically gets around with a walker but lately, her legs have been so weak that she cannot get around. As per EMS, they had a very hard time getting her out of her home. The patient denies increased cough. She is not short of breath. No headache. No abdominal pain, vomiting or diarrhea. No urinary complaints. Patient denies any speech slur or one-sided weakness. She states mostly, both legs are what makes her feel weak. Of note, the patient has no history of previous vertigo. She does have a history though of COPD. REVIEW OF SYSTEMS: See HPI for pertinent positives and negatives. A total of ten systems were revi ewed and were otherwise negative. PMHx/PSHx: See Below SOCIAL HISTORY: See Below. PHYSICAL EXAM: GENERAL: Patient is in no acute distress. HEENT: No acute trauma, normocephalic atraumatic, mucous membranes moist, no nasal congestion, no scleral icterus. NECK: No stridor, no adenopathy, no meningismus, trachea is midline. LUNGS: Clear to auscultation bilaterally, no wheeze, no rhonchi, breath sounds equal. HEART: Mildly tachycardic, regular rhythm, no obvious murmur. ABDOMEN: Soft, nontender, bowel sounds positive, no peritonitis. EXTREMITIES: No cyanosis or edema, full range of motion of all the joints wi thout pain or difficulty, no signs for acute trauma. NEUROLOGIC: Oriented x 3. No speech slur. The patient does not have any upper extremity drift or cerebellar dysfunction. Both lower extremities are equally weak and cannot be held off the bed. SKIN: No rash, no jaundice, no diaphoresis. DIFFERENTIAL DIAGNOSIS: Sepsis, UTI, pneumonia, COVID-19, vertigo, metabolic abnormality, electrolyte abnormalities, cardiac sources, cellulitis, bacteremia, intracerebral event, toxicologic etiology, neurologic event, as well as other pathologies. EMERGENCY DEPARTMENT COURSE/PROCEDURES: ECG: Indication was weakness. The ECG shows a sinus tachycardia with a rate of 102. There is no ST elevation, no PVCs. The QTc is 456. Continuous Cardiac Monitoring: An order was placed for continuous cardiac monitoring. The monitor shows a rate of 104 with sinus tachycardia. Critical Care Note: I have personally spent 53 minutes of critical care time in the direct management of this patient. This includes bedside care, interpretation of diagnostic studies, and testing, discussion with consultants, patient, and family members, and other required patient management activities. This 53 minutes is in excess of all separately billable procedures. MEDICAL DECISION MAKING: There is no leukocytosis or concerning anemia. There is a normal platelet count. No worrisome coagulopathy. There was some elevation of the creatinine consistent with some renal insufficiency/dehydration. Lactic acid level was not elevated making severe sepsis less likely. No worrisome liver enzyme elevation. ECG showed a sinus tachycardia, no obvious ischemia. Cardiac enzyme testing x1 is slightly elevated. This elevation could be from cardiac injury/strain or potentially demand mismatch. Procalcitonin level was not elevated. Urinalysis did not show infection. COVID test returned positive. Influenza and RSV test were negative. Chest x-ray did not show pneumonia or pneumothorax. Brain CT showed no acute bleed or mass-effect. Patient presents with weakness and dizziness. She received IV saline, 1 L. She received IV Zofran for nausea. She was given IV Toradol for pain. He was given IV cefepime as empiric antibiotic coverage. She was given oral Tylenol for her mild temperature elevation. The patient is in need of a hospital stay. She is too weak to stand or care for self. She lives alone. I suspect she is a bit dehydrated. This coupled with her COVID-19 diagnosis has caused her symptoms and presentation. I spoke with the patient and case management. The on-call hospitalist was consulted. Past Med/Surg History Medical History Anxiety Bronchiectasis CAD (coronary artery disease) Cancer of left breast 2005--sx, chemo, radiation CKD (chronic kidney disease), stage III COPD (chronic obstructive pulmonary disease) inhaler prn Depression Esophageal ulcer dx 10/2020 GERD (gastroesophageal reflux disease) Hyperlipidemia Myocardial Infarction 08/2017 "silent"--follows with Dr. Aguiar Sleep apnea CPAP--states she is not currently using Tobacco use Surgical History History of bilateral cataract extraction History of colonoscopy History of esophagogastroduodenoscopy (EGD) last 01/2021 @ [facility] History of left breast biopsy malignant History of lumpectomy of left breast History of tooth extraction all teeth Family History Brother Family hx of colon cancer Other No family history of adverse response to anesthesia Social History Smoking Status: Current every day smoker Tobacco Type: Cigarettes Cigarettes Per Day: 5 a day; Second Hand Exposure: No; Hx Alcohol Use: No Hx Substance Use: No Preferred Language: Sami Communication Ability: Effective [employer] Work[employer] Required: No Beliefs That Will Affect Care: None Current Living Situation: Alone Other Information That Helps Us Care for You: No Feels Safe at Home: Yes Safety Concerns: Feels Safe At This Time Assistive Devices: Denture - Upper, Glasses and Walker Allergies Allergies Allergy/AdvReac Type Severity Reaction Status Date / Time Penicillins Allergy Mild Rash Verified 11/02/21 08:27 Home Meds Home Medications Medication Instructions Recorded Confirmed aspirin 81 mg tablet,delayed 81 mg PO QAM 02/10/19 04/05/22 release cholecalciferol (vitamin D3) 50 2,000 unit PO QAM 02/10/19 04/05/22 mcg (2,000 unit) tablet (Vitamin D3) multivitamin 1 tab PO QAM 02/10/19 04/05/22 albuterol sulfate 90 mcg/actuation 2 puff inhalation Q6H PRN 06/06/19 04/05/22 aerosol inhaler (ProAir HFA) Shortness Of Breath vitamins A,C,V-crdc-bypbuv 2,148 1 tab PO QAM 06/06/19 04/05/22 mcg-113 mg-45 mg-17.4 mg tablet (PreserVision AREDS) alprazolam 0.5 mg tablet 0.5 mg PO BID PRN Anxiety 10/16/20 04/05/22 mirtazapine 15 mg tablet 22.5 mg PO HS 10/26/21 04/05/22 trazodone 50 mg tablet 25 mg PO HS 10/26/21 04/05/22 buspirone 10 mg tablet 10 mg PO BID 04/05/22 04/05/22 ferrous sulfate 325 mg (65 mg 325 mg PO BID 04/05/22 04/05/22 iron) tablet Previous Rx's Medication Instructions Recorded omeprazole 40 mg capsule,delayed 40 mg PO BID #180 caps 01/19/21 release Results & Data (ED) Vital Signs Vital Signs - 24 hr 04/05/22 09:19 04/05/22 10:09 04/05/22 11:25 Temperature 37.8 C H Temperature Source Oral Pulse Rate 104 H Pulse Rate [Apical] 83 Pulse Rhythm Regular Pulse Strength Normal Respiratory Rate 20 20 Respiratory Effort / Characteristics Non-Labored Spontaneous Non-Labored Spontaneous Respiratory Depth Normal Normal Respiratory Pattern Regular Regular Blood Pressure 136/91 Blood Pressure [Right Arm] 117/71 Blood Pressure Mean 106 Blood Pressure Mean [Right Arm] 86 Blood Pressure Position Sitting Pulse Oximetry 92 94 Oxygen Delivery Method Room Air Room Air Room Air Sepsis Recent Fever Within 48 Hours No Sepsis New/Unexplained Change in Mental Status N/A Sepsis Action Taken by Nursing No Action Required 04/05/22 11:26 Temperature Temperature Source Pulse Rate Pulse Rate [Apical] 84 Pulse Rhythm Pulse Strength Respiratory Rate 20 Respiratory Effort / Characteristics Respiratory Depth Respiratory Pattern Blood Pressure Blood Pressure [Right Arm] 117/71 Blood Pressure Mean Blood Pressure Mean [Right Arm] 86 Blood Pressure Position Pulse Oximetry 94 Oxygen Delivery Method Room Air Sepsis Recent Fever Within 48 Hours Sepsis New/Unexplained Change in Mental Status Sepsis Action Taken by [facility] Medications Current Medication List: was personally reviewed by me Laboratory Data Attestation: I reviewed the patient's lab results. Result diagrams: 04/05/22 09:23 04/05/22 09:23 Lab Results 04/05/22 04/05/22 04/05/22 Range/Units 09:23 09:23 09:23 WBC 7.38 (4.8-10.8) K/ul RBC 4.32 (3.93-5.22) M/uL Hgb 13.2 (12.0-16.0) g/dl Hct 41.1 (34.1-44.9) % MCV 95.1 (80.0-100.0) fL MCH 30.6 (25.0-34.0) pg MCHC 32.1 (32.0-36.0) g/dL RDW Std Deviation 48.1 H (36.4-46.3) fL RDW Coeff of Thierry 13.8 (11.5-14.5) % Plt Count 300 (130-400) K/uL MPV 8.9 L (9.4-12.3) fL Immature Gran % (Auto) 0.5 % Neut % (Auto) 79.2 % Lymph % (Auto) 10.0 % Villalba % (Auto) 9.8 % Eos % (Auto) 0.0 % Baso % (Auto) 0.5 % Neut # (Auto) 5.84 (1.4-6.5) K/uL Lymph # (Auto) 0.74 L (1.2-3.4) K/uL Villalba # (Auto) 0.72 (0.24-0.82) K/uL Eos # (Auto) 0.00 (0-0.50) K/uL Baso # (Auto) 0.04 (0-0.2) K/uL Immature Gran # (Auto) 0.04 H (0.00-0.02) K/uL PT 10.9 (9.0-12.0) Seconds INR 1.0 (0.9-1.1) APTT 31.1 H (21.0-31.0) Seconds PTT Ratio 1.1 Sodium 138 (136-145) mmol/L Potassium 4.1 (3.5-5.1) mmol/L Chloride 100 (98-107) mmol/L Carbon Dioxide 28 (21-32) mmol/L Anion Gap 10 (3-11) BUN 21 (6-23) mg/dl Creatinine 1.43 H (0.6-1.2) mg/dl Est Cr Clr Drug Dosing 25.2 ml/min Est GFR ( Amer) 39.4 ml/min Est GFR (Non-Af Amer) 34.0 ml/min BUN/Creatinine Ratio 14.7 (10-20) Glucose 107 H (70-99(Fasting)) mg/dl Lactate (0.4-2.0) mmol/L Calcium 9.3 (8.5-10.1) mg/dl Magnesium 1.7 (1.7-2.4) mg/dl Total Bilirubin 0.3 (0.2-1.0) mg/dl AST 18 (13-39) U/L ALT 9 (7-52) U/L Alkaline Phosphatase 107 H (34-104) U/L Troponin I High Sens 17.3 H D (0-14) pg/ml C-Reactive Protein (0-0.5) mg/dl Total Protein 7.5 (6.0-8.3) gm/dl Albumin 3.8 (3.4-5.0) gm/dl Globulin 3.7 (2.5-4.0) gm/dl Albumin/Globulin Ratio 1.0 (0.9-2) Procalcitonin (0-0.5) ng/ml Urine Color Urine Appearance (Clear) Urine pH (4.5-7.5) Ur Specific [place] (1.000-1.030) Urine Protein (Negative) Urine Glucose (UA) (Negative) Urine Ketones (Negative) Urine Blood (Negative) Urine Nitrite (Negative) Urine Bilirubin (Negative) Urine Urobilinogen (Negative) Ur Leukocyte Esterase (Negative) Urine WBC (Auto) (0-5) /hpf Urine RBC (Auto) (0-4) /hpf U Hyaline Cast (Auto) (0-5) /lpf U Epithel Cells (Auto) (0-5) /lpf Urine Bacteria (Auto) (Negative) SARS-CoV-2 (PCR) (Negative) Influenza Type A (PCR) (Neg) Influenza Type B (PCR) (Neg) RSV (RT-PCR) (Neg) 04/05/22 04/05/22 04/05/22 Range/Units 09:23 09:23 09:45 WBC (4.8-10.8) K/ul RBC (3.93-5.22) M/uL Hgb (12.0-16.0) g/dl Hct (34.1-44.9) % MCV (80.0-100.0) fL MCH (25.0-34.0) pg MCHC (32.0-36.0) g/dL RDW Std Deviation (36.4-46.3) fL RDW Coeff of Thierry (11.5-14.5) % Plt Count (130-400) K/uL MPV (9.4-12.3) fL Immature Gran % (Auto) % Neut % (Auto) % Lymph % (Auto) % Villalba % (Auto) % Eos % (Auto) % Baso % (Auto) % Neut # (Auto) (1.4-6.5) K/uL Lymph # (Auto) (1.2-3.4) K/uL Villalba # (Auto) (0.24-0.82) K/uL Eos # (Auto) (0-0.50) K/uL Baso # (Auto) (0-0.2) K/uL Immature Gran # (Auto) (0.00-0.02) K/uL PT (9.0-12.0) Seconds INR (0.9-1.1) APTT (21.0-31.0) Seconds PTT Ratio Sodium (136-145) mmol/L Potassium (3.5-5.1) mmol/L Chloride (98-107) mmol/L Carbon Dioxide (21-32) mmol/L Anion Gap (3-11) BUN (6-23) mg/dl Creatinine (0.6-1.2) mg/dl Est Cr Clr Drug Dosing ml/min Est GFR ( Amer) ml/min Est GFR (Non-Af Amer) ml/min BUN/Creatinine Ratio (10-20) Glucose (70-99(Fasting)) mg/dl Lactate 1.0 (0.4-2.0) mmol/L Calcium (8.5-10.1) mg/dl Magnesium (1.7-2.4) mg/dl Total Bilirubin (0.2-1.0) mg/dl AST (13-39) U/L ALT (7-52) U/L Alkaline Phosphatase (34-104) U/L Troponin I High Sens (0-14) pg/ml C-Reactive Protein 1.29 H (0-0.5) mg/dl Total Protein (6.0-8.3) gm/dl Albumin (3.4-5.0) gm/dl Globulin (2.5-4.0) gm/dl Albumin/Globulin Ratio (0.9-2) Procalcitonin 0.21 (0-0.5) ng/ml Urine Color Urine Appearance (Clear) Urine pH (4.5-7.5) Ur Specific [place] (1.000-1.030) Urine Protein (Negative) Urine Glucose (UA) (Negative) Urine Ketones (Negative) Urine Blood (Negative) Urine Nitrite (Negative) Urine Bilirubin (Negative) Urine Urobilinogen (Negative) Ur Leukocyte Esterase (Negative) Urine WBC (Auto) (0-5) /hpf Urine RBC (Auto) (0-4) /hpf U Hyaline Cast (Auto) (0-5) /lpf U Epithel Cells (Auto) (0-5) /lpf Urine Bacteria (Auto) (Negative) SARS-CoV-2 (PCR) (Negative) Influenza Type A (PCR) (Neg) Influenza Type B (PCR) (Neg) RSV (RT-PCR) (Neg) 04/05/22 04/05/22 Range/Units 10:04 11:16 WBC (4.8-10.8) K/ul RBC (3.93-5.22) M/uL Hgb (12.0-16.0) g/dl Hct (34.1-44.9) % MCV (80.0-100.0) fL MCH (25.0-34.0) pg MCHC (32.0-36.0) g/dL RDW Std Deviation (36.4-46.3) fL RDW Coeff of Thierry (11.5-14.5) % Plt Count (130-400) K/uL MPV (9.4-12.3) fL Immature Gran % (Auto) % Neut % (Auto) % Lymph % (Auto) % Villalba % (Auto) % Eos % (Auto) % Baso % (Auto) % Neut # (Auto) (1.4-6.5) K/uL Lymph # (Auto) (1.2-3.4) K/uL Villalba # (Auto) (0.24-0.82) K/uL Eos # (Auto) (0-0.50) K/uL Baso # (Auto) (0-0.2) K/uL Immature Gran # (Auto) (0.00-0.02) K/uL PT (9.0-12.0) Seconds INR (0.9-1.1) APTT (21.0-31.0) Seconds PTT Ratio Sodium (136-145) mmol/L Potassium (3.5-5.1) mmol/L Chloride (98-107) mmol/L Carbon Dioxide (21-32) mmol/L Anion Gap (3-11) BUN (6-23) mg/dl Creatinine (0.6-1.2) mg/dl Est Cr Clr Drug Dosing ml/min Est GFR ( Amer) ml/min Est GFR (Non-Af Amer) ml/min BUN/Creatinine Ratio (10-20) Glucose (70-99(Fasting)) mg/dl Lactate (0.4-2.0) mmol/L Calcium (8.5-10.1) mg/dl Magnesium (1.7-2.4) mg/dl Total Bilirubin (0.2-1.0) mg/dl AST (13-39) U/L ALT (7-52) U/L Alkaline Phosphatase (34-104) U/L Troponin I High Sens (0-14) pg/ml C-Reactive Protein (0-0.5) mg/dl Total Protein (6.0-8.3) gm/dl Albumin (3.4-5.0) gm/dl Globulin (2.5-4.0) gm/dl Albumin/Globulin Ratio (0.9-2) Procalcitonin (0-0.5) ng/ml Urine Color Yellow Urine Appearance Clear (Clear) Urine pH 5.5 (4.5-7.5) Ur Specific [place] 1.017 (1.000-1.030) Urine Protein 1+ H (Negative) Urine Glucose (UA) Negative (Negative) Urine Ketones Negative (Negative) Urine Blood Negative (Negative) Urine Nitrite Negative (Negative) Urine Bilirubin Negative (Negative) Urine Urobilinogen Negative (Negative) Ur Leukocyte Esterase Negative (Negative) Urine WBC (Auto) 1-5 (0-5) /hpf Urine RBC (Auto) 0-4 (0-4) /hpf U Hyaline Cast (Auto) 1-5 (0-5) /lpf U Epithel Cells (Auto) 10-20 H (0-5) /lpf Urine Bacteria (Auto) Negative (Negative) SARS-CoV-2 (PCR) POSITIVE A* (Negative) Influenza Type A (PCR) Negative (Neg) Influenza Type B (PCR) Negative (Neg) RSV (RT-PCR) Negative (Neg) Administered Medications Heparin Sodium (Porcine) (Heparin Sod 5,000 Unit/0.5 Ml Vial) 5,000 units SQ Q8 MOLLY Stop: 05/05/22 13:59 Last Admin: 04/05/22 14:30 Dose: 5,000 units Documented By: SERGO Sodium Chloride (Nss 1000ml) 1,000 mls @ 80 mls/hr IV .[id number] MOLLY Stop: 04/06/22 14:22 Last Admin: 04/05/22 14:30 Dose: 80 mls/hr Documented By: SERGO Insulin Aspart (Insulin Aspart Per Unit) 0 units SC ACHS MOLLY Stop: 05/05/22 16:29 Last Admin: 04/05/22 17:44 Dose: Not Given Documented By: PW Discontinued Medications Acetaminophen (Acetaminophen 500 Mg Tab) 1,000 mg PO NOW STA Stop: 04/05/22 09:24 Last Admin: 04/05/22 09:55 Dose: 1,000 mg Documented By: SHYAM Sodium Chloride (Nss 1000ml) 1,000 mls @ 999 mls/hr IV .[id number] MOLLY Stop: 04/05/22 10:30 Last Infusion: 04/05/22 14:23 Dose: 0 mls/hr Documented By: Admin: 04/05/22 09:57 Dose: 999 mls/hr Documented By: SHYAM Cefepime HCl (Maxipime) 2,000 mg in 20 mls @ 5 mls/min IV NOW STA; Protocol Stop: 04/05/22 09:26 Last Admin: 04/05/22 09:56 Dose: 5 mls/min Documented By: SHYAM Ketorolac Tromethamine (Ketorolac Tromethamine 15 Mg/Ml Vial) 15 mg IV NOW STA Stop: 04/05/22 10:52 Last Admin: 04/05/22 17:21 Dose: Not Given Documented By: SERGO Ondansetron HCl (Ondansetron Inj 2 Mg/Ml 2 Ml Vial) 4 mg IV NOW STA Stop: 04/05/22 10:52 Last Admin: 04/05/22 17:21 Dose: Not Given Documented By: SERGO Imaging Data Radiologist's Impression: Chest X-Ray 04/05/22 09:23 XR chest 1V portable CLINICAL HISTORY: Sepsis. COMPARISON STUDY: Chest radiograph March 21, 2022. Chest CT September 16, 2019. FINDINGS: Lung volumes are normal. Minimal left basilar opacity favors atelectasis. There is no pneumothorax or pleural effusion. Cardiac size is normal. Mediastinal contours are normal. There is no evidence for pulmonary edema. IMPRESSION: No acute cardiopulmonary findings. ACT 112: Negative or not required by law. Electronically signed by: Logan Neumann M.D. 04/05/2022 10:[address] 04/05/22 09:23 CT OF THE HEAD WITHOUT CONTRAST CLINICAL HISTORY: dizzy, falling COMPARISON STUDY: No previous studies for comparison. CT DOSE: 844.62 mGy.cm TECHNIQUE: Helical axial images of the head were obtained without IV contrast. Automated exposure control was utilized for the study. A dose lowering techniqu e was utilized adhering to the principles of ALARA. FINDINGS: No acute intracranial hemorrhage, midline shift or mass effect is present. White matter hypodensity suggests small vessel disease. The ventricular system is unremarkable. The basal cisterns are patent. No extra-axial collections are present. There are no findings to suggest acute dural sinus thrombosis or acute territorial infarct. No significant calvarial abnormalities are present. Visualized portions of the sinuses and mastoid air cells are clear. IMPRESSION: No acute intracranial findings. ACT 112: Negative or not required by law. Electronically signed by: Logan Neumann M.D. 04/05/2022 10:35 AM Discharge Plan Visit Data Chief Complaint: Vertigo Stated Complaint: VERTIGO SX ED Provider: Colby Burch Discharge Problem: Weakness, Fall, Acute dehydration, COVID-19, Elevated troponin Patient Disposition: Admitted As Inpatient Condition: Fair Discharge Instructions Interventions: ED Discharge Assessment Last Done: 04/05/22 13:00
[2022-04-05 09:49] LABS: Basophils # (auto) 0.04 K/uL (0-0.2); Basophils % (auto) 0.5 %; Hematocrit (blood only) 41.1 % (34.1-44.9); Hemoglobin 13.2 g/dl (12.0-16.0); Immature Granulocytes # (auto) 0.04 K/uL (0.00-0.02); Immature Granulocytes % (auto) 0.5 %; Lymphocytes # (auto) 0.74 K/uL (1.2-3.4); Mean Corpuscular Hemoglobin 30.6 pg (25.0-34.0); Mean Corpuscular Hgb Conc 32.1 g/dL (32.0-36.0); Mean Corpuscular Volume 95.1 fL (80.0-100.0); Mean Platelet Volume 8.9 fL (9.4-12.3); Monocytes # (auto) 0.72 K/uL (0.24-0.82); Monocytes % (auto) 9.8 %; Neutrophils # (auto) 5.84 K/uL (1.4-6.5); Neutrophils % (auto) 79.2 %; Platelet Count 300 K/uL (130-400); RDW Coefficient of Variation 13.8 % (11.5-14.5); RDW Standard Deviation 48.1 fL (36.4-46.3); Red Blood Count 4.32 M/uL (3.93-5.22); White Blood Count 7.38 K/ul (4.8-10.8)
[2022-04-05 10:17] LABS: Partial Thromboplastin Ratio 1.1; Partial Thromboplastin Time 31.1 Seconds (21.0-31.0); Prothrombin Time 10.9 Seconds (9.0-12.0)
[2022-04-05 10:22] LABS: Troponin I High Sensitivity 17.3 pg/ml (0-14)
--- NOTE | 2022-04-05 10:27 | XRay Report ---
XR chest 1V portable CLINICAL HISTORY: Sepsis. COMPARISON STUDY: Chest radiograph March 21, 2022. Chest CT September 16, 2019. FINDINGS: Lung volumes are normal. Minimal left basilar opacity favors atelectasis. There is no pneum othorax or pleural effusion. Cardiac size is normal. Mediastinal contours are normal. There is no jennifer dence for pulmonary edema. IMPRESSION: No acute cardiopulmonary findings. ACT 112: Negative or not required by law. Electronically signed by: Logan eNumann M.D. 04/05/2022 10:25 AM
[2022-04-05 10:33] LABS: Albumin Level 3.8 gm/dl (3.4-5.0); BUN Creatinine Ratio 14.7 (10-20); Bilirubin,Total 0.3 mg/dl (0.2-1.0); Calcium 9.3 mg/dl (8.5-10.1); Creatinine Clr Calc Pharmacy 25.2 ml/min; Est GFR (African American) 39.4 ml/min; Globulin 3.7 gm/dl (2.5-4.0); Magnesium 1.7 mg/dl (1.7-2.4); Potassium 4.1 mmol/L (3.5-5.1); Total Protein 7.5 gm/dl (6.0-8.3)
--- NOTE | 2022-04-05 10:36 | CT Scan Report ---
CT OF THE HEAD WITHOUT CONTRAST CLINICAL HISTORY: dizzy, falling COMPARISON STUDY: No previous studies for comparison. CT DOSE: 844.62 mGy.cm TECHNIQUE: Helical axial images of the head were obtained without IV contrast. Automated exposure con trol was utilized for the study. A dose lowering technique was utilized adhering to the principles o f ALARA. FINDINGS: No acute intracranial hemorrhage, midline shift or mass effect is present. White matter hyp odensity suggests small vessel disease. The ventricular system is unremarkable. The basal cisterns ar e patent. No extra-axial collections are present. There are no findings to suggest acute dural sinus thrombosis or acute territorial infarct. No significant calvarial abnormalities are present. Visualiz ed portions of the sinuses and mastoid air cells are clear. IMPRESSION: No acute intracranial findings. ACT 112: Negative or not required by law. Electronically signed by: Logan Neumann M.D. 04/05/2022 10:35 AM
[2022-04-05] MEDS ORDERED: ONDANSETRON INJ 2 MG/ML 2 ML VIAL IV STA (10:51)
[2022-04-05] MEDS ORDERED: KETOROLAC TROMETHAMINE 15 MG/ML VIAL IV STA (10:51)
[2022-04-05 10:54] LABS: Influenza A virus by PCR Negative (Neg); Influenza B virus by PCR Negative (Neg); RSV by PCR Negative (Neg)
[2022-04-05 11:10] LABS: SARS CoV2 RNA(COVID-19) InHosp POSITIVE (Negative)
[2022-04-05 11:50] LABS: Appearance Urine Clear (Clear); Bacteria Urine Automated Negative (Negative); Bilirubin Urine Negative (Negative); Blood Urine Negative (Negative); Color Urine Yellow; Glucose Urine UA Negative (Negative); Ketones Urine Negative (Negative); Leukocyte Esterase Urine Negative (Negative); Nitrite Urine Negative (Negative); Protein Urine 1+ (Negative); RBC Urine Automated 0-4 /hpf (0-4); Specific Gravity Urine 1.017 (1.000-1.030); Urobilinogen Urine Negative (Negative); pH Urine 5.5 (4.5-7.5)
--- NOTE | 2022-04-05 13:11 | History & Physical Report ---
Date of Service April 05, 2022 Assessment & Plan (1) Dizziness: Plan: Patient is 81 y/o F with PMH CAD, DM II, COPD, CKD III, anxiety, SILVIA, tobacco use presented to ER with c/o dizziness for couple of weeks with position change. +spinning type sensation. reported falls from dizziness, last reported 1 week ago. Denies syncope, LOC, RAMACHANDRAN, N/V, vision changes. No leukocytosis, UA unremarkable. +COVID-[address] head no acute changes. Likely vertigo Orthostatics PT eval for Gwendolyn maneuver Gentle IVF Fall precautions Meclizine prn (2) COVID-19: Plan: In ER T: 37.8C, other vitals stable. 94% on room air. +COVID-19 PCR. CXR without infiltrate. CRP pending, Procalcitonin: 0.2, Lactate: 1.0 In ER given 1L NSS, Cefepime, zofran Airborne isolation Supplemental oxygen as needed Albuterol prn Incentive spirometry, flutter valve Will not continue antibiotics at this time CBC, BMP in am (3) Generalized weakness: Plan: Reported generalized weakness and fatigue past 2 days. History ambulatory dysfunction, uses walker at baseline. Possible from underlying COVID-19 infection Fall precautions PT/OT eval (4) Elevated troponin: (5) CAD (coronary artery disease): Plan: History CAD, silent MA Initial troponin: 17. EKG sinus tachycardia without acute ST changes Denies CP, SOB Trend troponin Consider echo and cardiology consult if troponin increasing Continue aspirin (6) COPD (chronic obstructive pulmonary disease): Plan: On prn inhaler only No signs exacerbation Continue albuterol prn (7) Diabetes mellitus, type II: Plan: A1c: 5.5 on 02/2022 Monitor BSG, diabetic diet Novolog correction only at this time (8) Esophagitis: Plan: Continue PPI (9) CKD (chronic kidney disease), stage III: Plan: Cr: 1.4. Baseline Cr: 1.3-1.5 Monitor renal functions, avoid nephrotoxic agents when possible DVT Prophylaxis Heparin SQ Full Code as per discussion with pt Follows with Dr Nieves for routine care Pt was seen and care coordinated with Dr Ruiz. See addendum (10) Sleep apnea: (11) Anxiety: (12) Tobacco use: Admission and Anticipated Discharge Date Admission Date: Attending Addendum: care coordinated with LUCINDA Simms please refer to her notes for full details, I agree with her notes patient seen and examined, records reviewed by myself as well on exam, patient seen sleeping but easily awakened not in distress no chest pain, dyspnea, palpitations dizziness improving Dizziness likely Vertigo, CT head: negative for acute process PT eval COVID 19 infeciton: no pneumonia on CXR on room air Decadron, Remdesivir not indicated Weakness: secondary to above PT/OT Sunil Ruiz MD History of Present Illness Chief Complaint: Dizziness Primary Care Provider: Bandar Nieves MD Patient is 81 y/o F with PMH CAD, DM II, COPD, CKD III, anxiety, SILVIA, tobacco use presented to ER with c/o dizziness for couple of weeks. Patient reports for the past couple of weeks has been having dizziness with standing and walking. P atient reports historian when able to describe dizziness and reports its "just dizziness" however does report sometimes has episodes where objects appear to be spinning around. She reports this makes her feel off balance. Patient reports has had a couple of falls secondary to the dizziness. She reports last fall was 1 week ago. Patient denies any syncope or LOC. Denies associated nausea, vomi ting. Patient reports past day feeling very tired and generalized weakness. Is reported by EMS patient was unable to ambulate this morning. Patient reports uses walker at baseline. Patient denies any known fever, chills. She denies any known ill contacts. Patient reports lives at home alone however has neighbors and family stopping to check on her. Patient reports had 2 Pfizer COVID-19 vaccines and booster. Booster was on on 09/12/2021 per outpatient chart review. Denies chest pain, shortness of breath. She states she may have been having slight cough for the past couple of days but denies significant cough. Denies diaphoresis, N/V/D/C, RAMACHANDRAN, vision changes, neck pain, orthopnea, palpitations, sore throat, choking, otalgia, rhinorrhea, abdominal pain, paresthesias, extremity edema, rashes, urinary symptoms. In ER T: 37.8C, other vitals stable. 94% on room air. +COVID-19 PCR. CXR without infiltrate. CT head no acute changes. No leukocytosis and UA unremarkable. Reported patient too weak to go home. Allergies Allergy/AdvReac Type Severity Reaction Status Date / Time Penicillins Allergy Mild Rash Verified 11/02/21 08:27 Home Medications Medication Instructions Recorded Confirmed Type aspirin 81 mg tablet,delayed 81 mg PO QAM 02/10/19 04/05/22 History release cholecalciferol (vitamin D3) 50 2,000 unit PO QAM 02/10/19 04/05/22 History mcg (2,000 unit) tablet (Vitamin D3) multivitamin 1 tab PO QAM 02/10/19 04/05/22 History albuterol sulfate 90 mcg/actuation 2 puff inhalation Q6H PRN 06/06/19 04/05/22 History aerosol inhaler (ProAir HFA) Shortness Of Breath vitamins A,C,E-kyrg-auxmwm 2,148 1 tab PO QAM 06/06/19 04/05/22 History mcg-113 mg-45 mg-17.4 mg tablet (PreserVision AREDS) alprazolam 0.5 mg tablet 0.5 mg PO BID PRN Anxiety 10/16/20 04/05/22 History omeprazole 40 mg capsule,delayed 40 mg PO BID #180 caps 01/19/21 04/05/22 Rx release mirtazapine 15 mg tablet 22.5 mg PO HS 10/26/21 04/05/22 History trazodone 50 mg tablet 25 mg PO HS 10/26/21 04/05/22 History buspirone 10 mg tablet 10 mg PO BID 04/05/22 04/05/22 History ferrous sulfate 325 mg (65 mg 325 mg PO BID 04/05/22 04/05/22 History iron) tablet Past Med/Surg History Medical History Anxiety Bronchiectasis CAD (coronary artery disease) Cancer of left breast 2005--sx, chemo, radiation CKD (chronic kidney disease), stage III COPD (chronic obstructive pulmonary disease) inhaler prn Depression Esophageal ulcer dx 10/2020 GERD (gastroesophageal reflux disease) Hyperlipidemia Myocardial Infarction 08/2017 "silent"--follows with Dr. Aguiar Sleep apnea CPAP--states she is not currently using Tobacco use Surgical History History of bilateral cataract extraction History of colonoscopy History of esophagogastroduodenoscopy (EGD) last 01/2021 @ [facility] History of left breast biopsy malignant History of lumpectomy of left breast History of tooth extraction all teeth Family History Brother Family hx of colon cancer Other No family history of adverse response to anesthesia Social History Smoking Status: Current every day smoker Tobacco Type: Cigarettes Cigarettes Per Day: 5 a day; Second Hand Exposure: No; Hx Alcohol Use: No Hx Substance Use: No Preferred Language: Turkmen Communication Ability: Effective [place] Required: No Beliefs That Will Affect Care: None Current Living Situation: Alone Other Information That Helps Us Care for You: No Feels Safe at Home: Yes Safety Concerns: Feels Safe At This Time Assistive Devices: Denture - Upper, Glasses and Walker Review of Systems Review of Systems: All systems reviewed & are unremarkable except as noted in HPI & below Physical Exam Physical Exam: General: no acute distress, thin elderly female Head: normocephalic, atraumatic Eyes: PERRL, EOM's intact, conjunctiva non-injected, anicteric ENT: normal inspection external ears, nose, mucous membranes dry Neck: supple, trachea midline Lungs: clear, no respiratory distress, 94-95% on room air, no wheezing/rhonchi /rales CV: RRR, no murmur, no pretibial edema Abd: normal BS, soft, non-tender Ext: no cyanosis, no calf tenderness Neuro: Alert, oriented to person, place, and year. Knows its summer unsure of month or day of week. + reported reproduced vertigo like symptoms with ROM neck, no other focal deficits noted, normal affect Skin: warm, dry Results & Data Results & Data ([facility]) Vital Signs (Past 12 Hours) Vital Signs Temp Pulse Pulse Resp BP BP Pulse Ox 04/05/22 12:56 79 20 117/67 94 04/05/22 11:26 84 20 117/71 94 04/05/22 11:25 83 20 117/71 94 04/05/22 10:09 04/05/22 09:19 37.8 C H 104 H 20 136/91 92 O2 Del Method 04/05/22 12:56 Room Air 04/05/22 11:26 Room Air 04/05/22 11:25 Room Air 04/05/22 10:09 Room Air 04/05/22 09:19 Room Air Laboratory Results Short CBC 04/05/22 Range/Units 09:23 WBC 7.38 (4.8-10.8) K/ul Hgb 13.2 (12.0-16.0) g/dl Hct 41.1 (34.1-44.9) % Plt Count 300 (130-400) K/uL BMP 04/05/22 09:23 Sodium 138 Potassium 4.1 Chloride 100 Carbon Dioxide 28 BUN 21 Creatinine 1.43 H Glucose 107 H Calcium 9.3 Liver Function 04/05/22 Range/Units 09:23 Total Bilirubin 0.3 (0.2-1.0) mg/dl AST 18 (13-39) U/L ALT 9 (7-52) U/L Alkaline Phosphatase 107 H (34-104) U/L Albumin 3.8 (3.4-5.0) gm/dl Urine 04/05/22 Range/Units 11:16 Urine Color Yellow Urine Appearance Clear (Clear) Urine pH 5.5 (4.5-7.5) Ur Specific [place] 1.017 (1.000-1.030) Urine Protein 1+ H (Negative) Urine Glucose (UA) Negative (Negative) Diagnostic Findings Chest X-Ray 04/05/22 09:23 XR chest 1V portable CLINICAL HISTORY: Sepsis. COMPARISON STUDY: Chest radiograph March 21, 2022. Chest CT September 16, 2019. FINDINGS: Lung volumes are normal. Minimal left basilar opacity favors atelectasis. There is no pneumothorax or pleural effusion. Cardiac size is normal. Mediastinal contours are normal. There is no evidence for pulmonary edema. IMPRESSION: No acute cardiopulmonary findings. ACT 112: Negative or not required by law. Electronically signed by: Logan Neumann M.D. 04/05/2022 10:[address] 04/05/22 09:23 CT OF THE HEAD WITHOUT CONTRAST CLINICAL HISTORY: dizzy, falling COMPARISON STUDY: No previous studies for comparison. CT DOSE: 844.62 mGy.cm TECHNIQUE: Helical axial images of the head were obtained without IV contrast. Automated exposure control was utilized for the study. A dose lowering technique was utilized adhering to the principles of ALARA. FINDINGS: No acute intracranial hemorrhage, midline shift or mass effect is present. White matter hypodensity suggests small vessel disease. The ventricular system is unremarkable. The basal cisterns are patent. No extra-axial collections are present. There are no findings to suggest acute dural sinus thrombosis or acute territorial infarct. No significant calvarial abnormalities are present. Visualized portions of the sinuses and mastoid air cells are clear. IMPRESSION: No acute intracranial findings. ACT 112: Negative or not required by law. Electronically signed by: Logan Neumann M.D. 04/05/2022 10:35 AM ECG Rate (beats per minute): 102 Rhythm: sinus tachycardia Code Status & VTE Plan VTE Prophylaxis Plan VTE Prophylaxis will be ordered: Yes
[2022-04-05] MEDS ORDERED: ALPRAZolam 0.5 MG TABLET PO PRN (13:23)
[2022-04-05] MEDS ORDERED: ALBUTEROL HFA 8 GM INHALER INH PRN (13:23)
[2022-04-05] MEDS ORDERED: MECLIZINE 12.5 MG TAB PO PRN (13:23)
[2022-04-05] MEDS ORDERED: GLUCAGON FOR INJ 1 MG VIAL SQ PRN (13:23)
[2022-04-05] MEDS ORDERED: DEXTROSE 50% 50 ML SYRINGE IV PRN (13:23)
[2022-04-05] MEDS ORDERED: GLUCOSE 40% GEL 15 GM TUBE PO PRN (13:23)
[2022-04-05] MEDS ORDERED: GLUCOSE 10 TAB/TUBE PO PRN (13:23)
[2022-04-05] MEDS ORDERED: POLYETHYLENE (MIRALAX) 17 GM PACK PO PRN (13:23)
[2022-04-05] MEDS ORDERED: ACETAMINOPHEN 325 MG TAB PO PRN (13:23)
[2022-04-05] MEDS: HEPARIN SOD 5,000 UNIT/0.5 ML VIAL SQ SCH ×2 (14:30→21:38)
[2022-04-05] MEDS: SODIUM CHLORIDE 0.9% 1000ML 1,000 ML IV SCH (14:30)
--- NOTE | 2022-04-05 15:53 | Electrocardiogram Report ---
Test Reason : Blood Pressure : / mmHG Vent. Rate : 102 BPM Atrial Rate : 102 BPM P-R Int : 160 ms QRS Dur : 080 ms QT Int : 350 ms P-R-T Axes : -05 001 000 degrees QTc Int : 456 ms Sinus tachycardia Otherwise normal ECG When compared with ECG of 21-MAR-2022 09:19, Premature ventricular complexes are no longer Present Confirmed by Wilfrido Hudson ([id number]) on 04/05/2022 3:53:14 PM Referred By: Bandar Nieves Confirmed By:Wilfrido Hudson
[2022-04-05] MEDS: INSULIN ASPART PER UNIT SC SCH ×2 (17:44→21:15)
[2022-04-05] MEDS: traZODone HCL 50 MG TAB PO SCH (21:37)
[2022-04-05] MEDS: PANTOprazole 40 MG TAB PO SCH (21:38)
[2022-04-05] MEDS: MIRTAZAPINE TAB 15 MG TAB PO SCH (21:38)
[2022-04-05] MEDS: busPIRone 5 MG TAB PO SCH (21:39)
[2022-04-05] MEDS: FERROUS SULFATE 325 MG TAB PO SCH (21:40)
[2022-04-06] MEDS: SODIUM CHLORIDE 0.9% 1000ML 1,000 ML IV SCH (02:30)
[2022-04-06] MEDS: HEPARIN SOD 5,000 UNIT/0.5 ML VIAL SQ SCH ×3 (04:53→22:05)
[2022-04-06 06:13] LABS: Hematocrit (blood only) 38.5 % (34.1-44.9); Mean Corpuscular Hemoglobin 30.1 pg (25.0-34.0); Mean Corpuscular Hgb Conc 31.2 g/dL (32.0-36.0); Mean Corpuscular Volume 96.5 fL (80.0-100.0); Mean Platelet Volume 9.1 fL (9.4-12.3); Platelet Count 259 K/uL (130-400); RDW Coefficient of Variation 13.6 % (11.5-14.5); RDW Standard Deviation 49.1 fL (36.4-46.3); Red Blood Count 3.99 M/uL (3.93-5.22); White Blood Count 4.35 K/ul (4.8-10.8)
[2022-04-06 06:55] LABS: BUN Creatinine Ratio 18.3 (10-20); Creatinine Clr Calc Pharmacy 32.5 ml/min; Est GFR (African American) 48.7 ml/min; Est GFR (Non-African American) 42.1 ml/min
[2022-04-06] MEDS: INSULIN ASPART PER UNIT SC SCH ×4 (07:40→22:11)
[2022-04-06] MEDS: CARBOHYDRATES FOR HYPOGLYCEMIA PO PRN ×2 (07:40→07:56)
[2022-04-06] MEDS: MULTIVITAMIN TAB PO SCH (08:05)
[2022-04-06] MEDS: FERROUS SULFATE 325 MG TAB PO SCH ×2 (08:05→22:10)
[2022-04-06] MEDS: PANTOprazole 40 MG TAB PO SCH ×2 (08:06→22:10)
[2022-04-06] MEDS: CEROVITE ADV FORMULA TAB PO SCH (08:06)
[2022-04-06] MEDS: CHOLECALCIFEROL 1,000 UNITS 25 MCG TAB PO SCH (08:06)
[2022-04-06] MEDS: busPIRone 5 MG TAB PO SCH ×2 (08:06→22:09)
[2022-04-06] MEDS: ASPIRIN 81 MG ECTAB PO SCH (08:06)
--- NOTE | 2022-04-06 09:17 | Electrocardiogram Report ---
Test Reason : Blood Pressure : / mmHG Vent. Rate : 081 BPM Atrial Rate : 081 BPM P-R Int : 160 ms QRS Dur : 082 ms QT Int : 374 ms P-R-T Axes : 029 002 037 degrees QTc Int : 434 ms Sinus rhythm with occasional Premature ventricular complexes Low voltage QRS Borderline ECG When compared with ECG of 05-APR-2022 09:15, Premature ventricular complexes are now Present HR has decreased by 21 bpm Confirmed by Miguel Parry ([id number]) on 04/06/2022 9:17:32 AM Referred By: Bandar Nieves Confirmed By:Miguel Parry
--- NOTE | 2022-04-06 17:19 | Hospitalist Progress Note ---
Date of Service April 06, 2022 Assessment & Plan (1) Dizziness: Plan: vertigo which has persisted for "one month" however her sense of time is off so this isn't actually known. orthostatics negative. No leukocytosis, UA unremarkable. +COVID-[address] head no acute changes. Likely vertigo PT eval for Gwendolyn maneuver Gentle IVF Fall precautions Meclizine prn Brain MRI ordered with ongoing memory issues Neurology consult Normal TSH, check B12 in am. Notably patient denies any headaches or fevers and denies any bug bites. (2) Memory loss: (3) COVID-19: Plan: In ER T: 37.8C, other vitals stable. 94% on room air. +COVID-19 PCR. CXR without infiltrate. CRP pending, Procalcitonin: 0.2, Lactate: 1.0 In ER given 1L NSS, Cefepime, zofran Airborne isolation Supplemental oxygen as needed Albuterol prn Incentive spirometry, flutter valve Will not continue antibiotics at this time CBC, BMP in am (4) Generalized weakness: Plan: Reported generalized weakness and fatigue past 2 days. History ambulatory dysfunction, uses walker at baseline. Possible from underlying COVID-19 infection Fall precautions PT/OT eval (5) Elevated troponin: Plan: nonspecific, trended down and clinical picture inconsistent with ACS. Initial positive may have been mild demand ischemia in setting of tachycardia and known h/o CAD. (6) CAD (coronary artery disease): Plan: History CAD, silent ND Initial troponin: 17. EKG sinus tachycardia without acute ST changes Denies CP, SOB Trend troponin Consider echo and cardiology consult if troponin increasing Continue aspirin (7) COPD (chronic obstructive pulmonary disease): Plan: On prn inhaler only No signs exacerbation Continue albuterol prn (8) Diabetes mellitus, type II: Plan: A1c: 5.5 on 02/2022 Monitor BSG, diabetic diet Novolog correction only at this time (9) Anxiety: (10) Tobacco use: (11) CKD (chronic kidney disease), stage III: Plan: Cr: 1.4. Baseline Cr: 1.3-1.5 Monitor renal functions, avoid nephrotoxic agents when possible DVT Prophylaxis Heparin SQ Dispo-cont telemetry monitoring for now. Mel Wick DO [facility] Hospitalist Admission and Anticipated Discharge Date Admission Date: April 05, 2022 Subjective Patient is an 81-year-old female who presents with 4 weeks of dizziness described as vertigo. She has fallen recently as a result of dizziness and weakness. She is COVID-positive. In the ER she received 1 L of saline Zofran and Toradol for pain. She was given IV cefepime as empiric antibiotic coverage. She is an active smoker. CT of the head revealed no acute changes. She is not in distress today but reports persistent dizziness. She does not have dizziness every day and is uncertain what triggers the dizziness but she thinks changing position may be contributing. She is not hypoxic and denies respiratory symptoms. She is experiencing some amnesia for recent events including the date and when she came into the hospital and she cannot recall what was happening that prompted her to come into the hospital. She lives alone and is very concerned about this. Review of Systems Review of Systems: All systems reviewed negative except as indicated above. Physical Exam Physical Exam: CONSTITUTIONAL: WNWD, vitals as above, generally well- appearing, NAD EYES: EOMI bilaterally, PERRL, normal conjunctivae, ENT: external ear and nose normal, MMM NECK: trachea midline RESPIRATORY: clear to auscultation bilaterally, no crackles, rales or wheezes, normal respiratory effort CARDIOVASCULAR: regular rate and rhythm, S1 and 2 heard without murmurs, gallops or rubs, no JVD, no peripheral edema CHEST: inspection of chest was normal GASTROINTESTINAL: soft, nontender, ND, no guarding MUSCULOSKELETAL: strength 5/5 throughout, head is normocephalic and atraumatic SKIN: warm and dry NEUROLOGIC: CN 2-12 grossly intact, no sensory deficit, normal cognition, normal speech, no tremor PSYCHIATRIC: alert cooperative and oriented to person, place and time as in the year but she cannot accurately rpeort the date or verify sequeeence of events including things like her recent ER visit in early March. She thought she had been admitted to the hospital at that time and had been here since then. Results & Data Results & Data ([facility]) Vital Signs (Past 12 Hours) Vital Signs Temp Pulse Pulse Resp BP Pulse Ox Pulse Ox 04/06/22 16:41 36.6 C 88 19 130/79 94 04/06/22 11:41 36.7 C 73 18 121/79 95 04/06/22 09:53 83 04/06/22 09:50 95 04/06/22 07:43 37.1 C 84 19 109/74 92 O2 Del Method 04/06/22 16:41 Room Air 04/06/22 11:41 Room Air 04/06/22 09:53 04/06/22 09:50 04/06/22 07:43 Room Air Laboratory Results Short CBC 04/06/22 Range/Units 05:21 WBC 4.35 L (4.8-10.8) K/ul Hgb 12.0 (12.0-16.0) g/dl Hct 38.5 (34.1-44.9) % Plt Count 259 (130-400) K/uL BMP 04/06/22 05:21 Sodium 140 Potassium 4.0 Chloride 107 Carbon Dioxide 24 BUN 22 Creatinine 1.20 Glucose 63 L Calcium 8.0 L Medications Administered Current Inpatient Medications Acetaminophen (Acetaminophen 325 Mg Tab) 650 mg PO Q4H PRN PRN Reason: Pain or Fever Stop: 05/05/22 13:22 Albuterol (Albuterol Hfa 8 Gm Inhaler) 2 puffs INH Q6H PRN PRN Reason: Shortness Of Breath Stop: 05/05/22 13:22 Alprazolam (Alprazolam 0.5 Mg Tablet) 0.5 mg PO BID PRN PRN Reason: Anxiety Stop: 05/05/22 13:22 Aspirin (Aspirin 81 Mg Ectab) 81 mg PO QAM [facility] Stop: 05/06/22 08:59 Last Admin: 04/06/22 08:06 Dose: 81 mg Buspirone HCl (Buspirone 5 Mg Tab) 10 mg PO BID MOLLY Stop: 05/05/22 20:59 Last Admin: 04/06/22 08:06 Dose: 10 mg Dextrose (Dextrose 50% 50 Ml Syringe) 25 - 50 ml IV UD PRN; Protocol PRN Reason: Hypoglycemia Protocol Stop: 05/05/22 13:22 Ferrous Sulfate (Ferrous Sulfate 325 Mg Tab) 325 mg PO BID MOLLY Stop: 05/05/22 20:59 Last Admin: 04/06/22 08:05 Dose: 325 mg Glucagon (Glucagon For Inj 1 Mg Vial) 1 mg SQ UD PRN; Protocol PRN Reason: Hypoglycemia Protocol Stop: 05/05/22 13:22 Glucose (Glucose 40% Gel 15 Gm Tube) 15 - 30 gm PO UD PRN; Protocol PRN Reason: Hypoglycemia Protocol Stop: 05/05/22 13:22 Glucose (Glucose 10 Tab/Tube) 4 - 8 tab PO UD PRN; Protocol PRN Reason: Hypoglycemia Treatment Stop: 05/05/22 13:22 Heparin Sodium (Porcine) (Heparin Sod 5,000 Unit/0.5 Ml Vial) 5,000 units SQ Q8 MOLLY Stop: 05/05/22 13:59 Last Admin: 04/06/22 13:06 Dose: 5,000 units Insulin Aspart (Insulin Aspart Per Unit) 0 units SC ACHS MOLLY Stop: 05/05/22 16:29 Last Admin: 04/06/22 17:05 Dose: Not Given Meclizine HCl (Meclizine 12.5 Mg Tab) 12.5 mg PO Q6H PRN PRN Reason: Dizziness or Vertigo Stop: 05/05/22 13:22 Mirtazapine (Mirtazapine Tab 15 Mg Tab) 22.5 mg PO HS [facility] Stop: 05/05/22 20:59 Last Admin: 04/05/22 21:38 Dose: 22.5 mg Miscellaneous (Carbohydrates For Hypoglycemia ) 15 - 30 gm PO UD PRN PRN Reason: Hypoglycemia Protocol Stop: 05/05/22 13:22 Last Admin: 04/06/22 07:56 Dose: 15 gm Multivitamins (Multivitamin Tab) 1 tab PO QAM [facility] Stop: 05/06/22 08:59 Last Admin: 04/06/22 08:05 Dose: 1 tab Multivitamins/Minerals (Cerovite Adv Formula Tab) 1 tab PO QAM [facility] Stop: 05/06/22 08:59 Last Admin: 04/06/22 08:06 Dose: 1 tab Pantoprazole Sodium (Pantoprazole 40 Mg Tab) 40 mg PO BID MOLLY; Protocol Stop: 05/05/22 20:59 Last Admin: 04/06/22 08:06 Dose: 40 mg Polyethylene Glycol (Polyethylene (Miralax) 17 Gm Pack) 17 gm PO DAILY PRN PRN Reason: Constipation Stop: 05/05/22 13:22 Trazodone HCl (Trazodone Hcl 50 Mg Tab) 25 mg PO HS MOLLY Stop: 05/05/22 20:59 Last Admin: 04/05/22 21:37 Dose: 25 mg Vitamin D (Cholecalciferol 1,000 Units 25 Mcg Tab) 2,000 units PO [facility] Stop: 05/06/22 08:59 Last Admin: 04/06/22 08:06 Dose: 2,000 units
[2022-04-06] MEDS ORDERED: SODIUM CHLORIDE 0.9% 1000ML 1,000 ML IV SCH (20:00)
[2022-04-06] MEDS ORDERED: GADOBUTROL 65ML VIAL IV ONE (21:39)
[2022-04-06] MEDS: traZODone HCL 50 MG TAB PO SCH (22:07)
[2022-04-06] MEDS: MIRTAZAPINE TAB 15 MG TAB PO SCH (22:11)
[2022-04-07] MEDS: HEPARIN SOD 5,000 UNIT/0.5 ML VIAL SQ SCH ×3 (05:27→21:07)
[2022-04-07 06:40] LABS: Hematocrit (blood only) 37.8 % (34.1-44.9); Hemoglobin 12.1 g/dl (12.0-16.0); Mean Corpuscular Hemoglobin 30.6 pg (25.0-34.0); Mean Corpuscular Volume 95.7 fL (80.0-100.0); Mean Platelet Volume 8.5 fL (9.4-12.3); Platelet Count 233 K/uL (130-400); RDW Coefficient of Variation 13.6 % (11.5-14.5); RDW Standard Deviation 48.1 fL (36.4-46.3); Red Blood Count 3.95 M/uL (3.93-5.22); White Blood Count 5.92 K/ul (4.8-10.8)
[2022-04-07 07:14] LABS: BUN Creatinine Ratio 16.1 (10-20); Creatinine Clr Calc Pharmacy 34.5 ml/min; Est GFR (Non-African American) 45.7 ml/min; Potassium 3.8 mmol/L (3.5-5.1)
[2022-04-07] MEDS: MULTIVITAMIN TAB PO SCH (07:35)
[2022-04-07] MEDS: PANTOprazole 40 MG TAB PO SCH ×2 (07:36→21:06)
[2022-04-07] MEDS: FERROUS SULFATE 325 MG TAB PO SCH ×2 (07:36→21:06)
[2022-04-07] MEDS: CHOLECALCIFEROL 1,000 UNITS 25 MCG TAB PO SCH (07:36)
[2022-04-07] MEDS: CEROVITE ADV FORMULA TAB PO SCH (07:37)
[2022-04-07] MEDS: ASPIRIN 81 MG ECTAB PO SCH (07:37)
[2022-04-07] MEDS: busPIRone 5 MG TAB PO SCH ×2 (07:37→21:07)
[2022-04-07 07:38] LABS: Folate (Folic Acid) 9.62 ng/ml (>5.38)
[2022-04-07 07:39] LABS: Vitamin B12 > 1500 pg/ml (180-914)
[2022-04-07] MEDS: INSULIN ASPART PER UNIT SC SCH ×4 (08:47→20:49)
--- NOTE | 2022-04-07 10:03 | Magnetic Resonance Report ---
Brain MRI WITH AND WITHOUT CONTRAST HISTORY: loss of memory, recent fall, ro IC mass/cva TECHNIQUE: Multiplanar multisequence MRI of the brain was performed both before and after the intrave nous administration of contrast. COMPARISON STUDY: Head CT 04/05/2022. FINDINGS: There is no mass, hematoma, midline shift, or acute infarct. The paranasal sinuses are sada r. The mastoid air cells are clear. The ventricles and sulci demonstrate moderate age-related involut ional changes. Scattered foci of T2 hyperintensity seen within the periventricular and subcortical wh ite matter are nonspecific but suggestive of moderate to severe microvascular ischemic changes. The m ajor vascular flow voids at the skull base are well-maintained. Evidence for prior bilateral lens rep lacement. IMPRESSION: No acute intracranial abnormality. Scattered foci of T2 hyperintensity seen within the periventricula r and subcortical white matter are nonspecific but favor moderate to severe microvascular ischemic ch michael. ACT 112: Negative or not required by law. Electronically signed by: Donny Arana M.D. 04/07/2022 10:01 AM
--- NOTE | 2022-04-07 14:10 | Hospitalist Progress Note ---
Date of Service April 07, 2022 Assessment & Plan (1) Dizziness: Plan: vertigo which has persisted for "one month" however her sense of time is off so this isn't actually known. orthostatics negative. No leukocytosis, UA unremarkable. +COVID-[address] head no acute changes. 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 Pt reports that she showers herself at home but cannot even stand at side of bed Fall precautions Meclizine prn Neurology consult Normal TSH, normal B12 (2) Memory loss: Plan: Uncertain baseline, will try to reach out to family as patient is an unreliable historian (3) COVID-19: Plan: In ER T: 37.8C, other vitals stable. 94% on room air. +COVID-19 PCR. CXR without infiltrate. CRP pending, Procalcitonin: 0.2, Lactate: 1.0 In ER given 1L NSS, Cefepime, zofran Airborne isolation Supplemental oxygen as needed Albuterol prn Incentive spirometry, flutter valve Will not continue antibiotics at this time CBC, BMP in am (4) Generalized weakness: Plan: Reported generalized weakness and fatigue past 2 days. History ambulatory dysfunction, uses walker at baseline. Possible from underlying COVID-19 infection Fall precautions PT/OT eval (5) Elevated troponin: Plan: nonspecific, trended down and clinical picture inconsistent with ACS. Initial positive may have been mild demand ischemia in setting of tachycardia and known h/o CAD. (6) CAD (coronary artery disease): Plan: History CAD, silent [place] Initial troponin: 17. EKG sinus tachycardia without acute ST changes Denies CP, SOB Trend troponin Consider echo and cardiology consult if troponin increasing Continue aspirin (7) COPD (chronic obstructive pulmonary disease): Plan: On prn inhaler only No signs exacerbation Continue albuterol prn (8) Diabetes mellitus, type II: Plan: A1c: 5.5 on 02/2022 Monitor BSG, diabetic diet Novolog correction only at this time (9) Anxiety: (10) Tobacco use: (11) CKD (chronic kidney disease), stage III: Plan: Cr: 1.4. Baseline Cr: 1.3-1.5 Monitor renal functions, avoid nephrotoxic agents when possible DVT Prophylaxis Heparin SQ Dispo-cont telemetry monitoring for now. DO [facility] Hospitalist Admission and Anticipated Discharge Date Admission Date: April 05, 2022 Subjective Patient is an 81-year-old female who presents with 4 weeks of dizziness described as vertigo. She has fallen recently as a result of dizziness and weakness. She is COVID-positive. In the ER she received 1 L of saline Zofran and Toradol for pain. She was given IV cefepime as empiric antibiotic coverage. She is an active smoker. CT of the head revealed no acute changes. She is still having memory issues and is now hallucinating seeing srikanth bears in the room that are not there She is oriented to person and place but not the date or time and has no understanding of why she is here. She is eating. +fevers overnight MRI with microvascular disease Review of Systems Review of Systems: All systems reviewed negative except as indicated above. Physical Exam Physical Exam: CONSTITUTIONAL: WNWD, vitals as above, generally well- appearing, NAD EYES: normal conjunctivae, normal sclerae ENT: external ear and nose normal, MMM NECK: trachea midline RESPIRATORY: clear to auscultation bilaterally, no crackles, rales or wheezes, normal respiratory effort CARDIOVASCULAR: regular rate and rhythm, S1 and 2 heard without murmurs, g allops or rubs, no JVD, no peripheral edema CHEST: inspection of chest was normal GASTROINTESTINAL: soft, nontender, ND, no guarding MUSCULOSKELETAL: strength 5/5 throughout, head is normocephalic and atraumatic SKIN: warm and dry NEUROLOGIC: CN 2-12 grossly intact, no sensory deficit, normal cognition, normal speech, no tremor PSYCHIATRIC: alert cooperative and oriented to person, place and time as in the year but she cannot accurately report the date or verify sequence of events including things like her recent ER visit in early March. She thought she had been admitted to the hospital at that time and had been here since then. Results & Data Results & Data ([facility]) Vital Signs (Past 12 Hours) Vital Signs Temp Pulse Pulse Resp BP Pulse Ox O2 Del Method 04/07/22 11:15 38.0 C H 92 H 18 165/85 H 94 Room Air 04/07/22 08:43 85 04/07/22 08:42 37.8 C H 85 16 155/88 H 96 Room Air 04/07/22 08:22 Room Air 04/07/22 04:11 37.9 C H 80 17 120/71 94 Room Air 04/07/22 02:51 98 H Laboratory Results Short CBC 04/07/22 Range/Units 06:28 WBC 5.92 (4.8-10.8) K/ul Hgb 12.1 (12.0-16.0) g/dl Hct 37.8 (34.1-44.9) % Plt Count 233 (130-400) K/uL BMP 04/07/22 06:28 Sodium 138 Potassium 3.8 Chloride 106 Carbon Dioxide 24 BUN 18 Creatinine 1.12 Glucose 83 Calcium 8.0 L Diagnostic Findings Brain MRI 04/06/22 19:55 Brain MRI WITH AND WITHOUT CONTRAST HISTORY: loss of memory, recent fall, ro IC mass/cva TECHNIQUE: Multiplanar multisequence MRI of the brain was performed both before and after the intravenous administration of contrast. COMPARISON STUDY: Head CT 04/05/2022. FINDINGS: There is no mass, hematoma, midline shift, or acute infarct. The paranasal sinuses are clear. The mastoid air cells are clear. The ventricles and sulci demonstrate moderate age-related involutional changes. Scattered foci of T2 hyperintensity seen within the periventricular and subcortical white matter are nonspecific but suggestive of moderate to severe microvascular ischemic granados ges. The major vascular flow voids at the skull base are well-maintained. Evidence for prior bilateral lens replacement. IMPRESSION: No acute intracranial abnormality. Scattered foci of T2 hyperintensity seen within the periventricular and subcortical white matter are nonspecific but favor moderate to severe microvascular ischemic change. ACT 112: Negative or not required by law. Electronically signed by: Donny Arana M.D. 04/07/2022 10:01 AM Medications Administered Current Inpatient Medications Acetaminophen (Acetaminophen 325 Mg Tab) 650 mg PO Q4H PRN PRN Reason: Pain or Fever Stop: 05/05/22 13:22 Albuterol (Albuterol Hfa 8 Gm Inhaler) 2 puffs INH Q6H PRN PRN Reason: Shortness Of Breath Stop: 05/05/22 13:22 Alprazolam (Alprazolam 0.5 Mg Tablet) 0.5 mg PO BID PRN PRN Reason: Anxiety Stop: 05/05/22 13:22 Aspirin (Aspirin 81 Mg Ectab) 81 mg PO QAM [facility] Stop: 05/06/22 08:59 Last Admin: 04/07/22 07:37 Dose: 81 mg Buspirone HCl (Buspirone 5 Mg Tab) 10 mg PO BID MOLLY Stop: 05/05/22 20:59 Last Admin: 04/07/22 07:37 Dose: 10 mg Dextrose (Dextrose 50% 50 Ml Syringe) 25 - 50 ml IV UD PRN; Protocol PRN Reason: Hypoglycemia Protocol Stop: 05/05/22 13:22 Ferrous Sulfate (Ferrous Sulfate 325 Mg Tab) 325 mg PO BID MOLLY Stop: 05/05/22 20:59 Last Admin: 04/07/22 07:36 Dose: 325 mg Glucagon (Glucagon For Inj 1 Mg Vial) 1 mg SQ UD PRN; Protocol PRN Reason: Hypoglycemia Protocol Stop: 05/05/22 13:22 Glucose (Glucose 40% Gel 15 Gm Tube) 15 - 30 gm PO UD PRN; Protocol PRN Reason: Hypoglycemia Protocol Stop: 05/05/22 13:22 Glucose (Glucose 10 Tab/Tube) 4 - 8 tab PO UD PRN; Protocol PRN Reason: Hypoglycemia Treatment Stop: 05/05/22 13:22 Heparin Sodium (Porcine) (Heparin Sod 5,000 Unit/0.5 Ml Vial) 5,000 units SQ Q8 MOLLY Stop: 05/05/22 13:59 Last Admin: 04/07/22 05:27 Dose: 5,000 units Insulin Aspart (Insulin Aspart Per Unit) 0 units SC ACHS MOLLY Stop: 05/05/22 16:29 Last Admin: 04/07/22 11:48 Dose: Not Given Meclizine HCl (Meclizine 12.5 Mg Tab) 12.5 mg PO Q6H PRN PRN Reason: Dizziness or Vertigo Stop: 05/05/22 13:22 Mirtazapine (Mirtazapine Tab 15 Mg Tab) 22.5 mg PO HS MOLLY Stop: 05/05/22 20:59 Last Admin: 04/06/22 22:11 Dose: 22.5 mg Miscellaneous (Carbohydrates For Hypoglycemia ) 15 - 30 gm PO UD PRN PRN Reason: Hypoglycemia Protocol Stop: 05/05/22 13:22 Last Admin: 04/06/22 07:56 Dose: 15 gm Multivitamins (Multivitamin Tab) 1 tab PO QAM MOLLY Stop: 05/06/22 08:59 Last Admin: 04/07/22 07:35 Dose: 1 tab Multivitamins/Minerals (Cerovite Adv Formula Tab) 1 tab PO QAM [facility] Stop: 05/06/22 08:59 Last Admin: 04/07/22 07:37 Dose: 1 tab Pantoprazole Sodium (Pantoprazole 40 Mg Tab) 40 mg PO BID MOLLY; Protocol Stop: 05/05/22 20:59 Last Admin: 04/07/22 07:36 Dose: 40 mg Polyethylene Glycol (Polyethylene (Miralax) 17 Gm Pack) 17 gm PO DAILY PRN PRN Reason: Constipation Stop: 05/05/22 13:22 Trazodone HCl (Trazodone Hcl 50 Mg Tab) 25 mg PO [facility] Stop: 05/05/22 20:59 Last Admin: 04/06/22 22:07 Dose: 25 mg Vitamin D (Cholecalciferol 1,000 Units 25 Mcg Tab) 2,000 units PO QAM MOLLY Stop: 05/06/22 08:59 Last Admin: 04/07/22 07:36 Dose: 2,000 units
--- NOTE | 2022-04-07 14:53 | Neurology Consultation ---
Date of Consultation April 07, 2022 Assessment & Plan (1) COVID-19: 1. discussed patient with Lucy Agudelo [phone] who is the legal POA but lives in the [place] area. Her and her take care of all of Alexandra legal and financial matters. she has had 24/7 assistance since September 2020 with [facility] home health agency. she has very little activity during the day and it takes a big effort to walk from the bathroom to the bed. She is incontinent of urine at baseline. She is still having vertigo issues which she was hospitalized and discharged to home but then returned with vertigo again and tested + for covid. She appreciated the call and would appreciate any updates. (2) Memory loss: 1. ongoing illness difficult to assess in hospital setting (3) Dizziness: 1. needs Gwendolyn if not resolved can see PT as outpatient. Supervising Physician Co-Signing Physician Notes I have seen and discussed above patient with Dr Pura Villalobos, neurology. Patient seen and examined. Discussed with Pura Young history that she obtained from the patient's power of blue prints trimmer. The patient has had a poor functional status with 24-hour daycare for a year and a half very little ambulation and incontinent at home although unclear if both bowel movement and urine. This patient indicates that she has had vertigo mostly with changes in head position she denies a headache or other neurologic symptoms. Nursing has noted her to be incontinent and to say unusual things at times questioning whether or not there may be some hallucinations. Patient is a poor historian for instance she indicates that she has stopped smoking but family indicates otherwise. She also indicates that she has home health for 8 hours a day and apparently it is 24 hours a day. Her laboratory evaluation was fairly unremarkable. Her B12 and folate were normal TSH is not yet been done. 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 Her COVID test was positive. On exam she is awake and alert oriented to person and year but not month or place. No right left confusion or aphasia. Memory is 2 out of 3 at 3 minutes. Her neck is supple pupils are equal I had difficulty visualizing the optic nerves there are normal kwon motility facial symmetry. Symmetric strength. Reflexes were nonpathologic no clonus and toes are downgoing [id number] may be mildly tremulous [id number] is normal. Is difficult to determine the intactness of her proprioception. It did appear to be definitely intact at the ankles. Provocative head maneuvers with head hanging to the right reproduce her symptoms with latency and fatigability. BPPV. Discussed labyrinthine exercises with her but suspect her carryover will be little recommend PT for Gwendolyn maneuver. This patient appears to have an underlying dementia she currently does not appear to be overtly delirious although certainly could be have mild hallucinations and confusion related to the hospital setting and being ill with COVID superimposed on some baseline dementia. See no evidence that she has a meningeal process. Agree with looking for labs for treatable etiologies of dementia. Consider urinalysis if not previously done. This point I do not see an indication for an EEG. We can certainly see the patient as an outpatient to explore cognitive issues and a little more detail. Given the degree of vascular changes on MRI I wonder if there is a vascular dementia and vascular gait dysfunction. We will sign off please reconsult if needed History of Present Illness Reason for Consultation: memory loss Requesting Physician: Mel Wick DO Attending Physician: Mel Wick DO History of Present Illness Alexandra is 81 year old female with PMH- CAD, DM II, COPD, CKD III, anxiety, SILVIA, tobacco use presented to the [facility] ER with c/o dizziness for couple of weeks.For the past couple of weeks has been having dizziness with standing and walking.She describes dizziness and reports its "just dizziness" however does report sometimes has episodes where objects appear to be spinning around and makes her feel off balance.She has had a couple of falls secondary to the dizziness the last fall was 1 week ago. For the past day feeling very tired and generalized weakness and was unable to ambulate this morning.She uses walker at baseline.She lives at home alone however has neighbors and family stopping to check on her. She had 2 Pfizer COVID-19 vaccines and booster. Booster was on on 09/12/2021. She has a slight cough for the past couple of days but denies significant cough. +COVID-19 PCR. Allergies Allergy/AdvReac Type Severity Reaction Status Date / Time Penicillins Allergy Mild Rash Verified 11/02/21 08:27 Home Medications Medication Instructions Recorded Confirmed Type aspirin 81 mg tablet,delayed 81 mg PO QAM 02/10/19 04/05/22 History release cholecalciferol (vitamin D3) 50 2,000 unit PO QAM 02/10/19 04/05/22 History mcg (2,000 unit) tablet (Vitamin D3) multivitamin 1 tab PO QAM 02/10/19 04/05/22 History albuterol sulfate 90 mcg/actuation 2 puff inhalation Q6H PRN 06/06/19 04/05/22 History aerosol inhaler (ProAir HFA) Shortness Of Breath vitamins A,C,[id number]-qelo-yacwwm 2,148 1 tab PO QAM 06/06/19 04/05/22 History mcg-113 mg-45 mg-17.4 mg tablet (PreserVision AREDS) alprazolam 0.5 mg tablet 0.5 mg PO BID PRN Anxiety 10/16/20 04/05/22 History omeprazole 40 mg capsule,delayed 40 mg PO BID #180 caps 01/19/21 04/05/22 Rx release mirtazapine 15 mg tablet 22.5 mg PO HS 10/26/21 04/05/22 History trazodone 50 mg tablet 25 mg PO HS 10/26/21 04/05/22 History buspirone 10 mg tablet 10 mg PO BID 04/05/22 04/05/22 History ferrous sulfate 325 mg (65 mg 325 mg PO BID 04/05/22 04/05/22 History iron) tablet Patient History Medical History Anxiety Bronchiectasis CAD (coronary artery disease) Cancer of left breast 2005--sx, chemo, radiation CKD (chronic kidney disease), stage III COPD (chronic obstructive pulmonary disease) inhaler prn Depression Esophageal ulcer dx 10/2020 GERD (gastroesophageal reflux disease) Hyperlipidemia Myocardial Infarction 08/2017 "silent"--follows with Dr. Aguiar Sleep apnea CPAP--states she is not currently using Tobacco use Surgical History History of bilateral cataract extraction History of colonoscopy History of esophagogastroduodenoscopy (EGD) last 01/2021 @ [facility] History of left breast biopsy malignant History of lumpectomy of left breast History of tooth extraction all teeth Family History Brother Family hx of colon cancer Other No family history of adverse response to anesthesia Social History Smoking Status: Current every day smoker Tobacco Type: Cigarettes Cigarettes Per Day: 5 a day; Second Hand Exposure: No; Hx Alcohol Use: No Hx Substance Use: No Preferred Language: Kenyan Communication Ability: Effective Road Test Examiner Required: No Beliefs That Will Affect Care: None Current Living Situation: Alone Other Information That Helps Us Care for You: No Feels Safe at Home: Yes Safety Concerns: Feels Safe At This Time Assistive Devices: Walker Results & Data ([facility]) Vital Signs (Past 12 Hours) Vital Signs Temp Pulse Pulse Resp BP Pulse Ox O2 Del Method 04/07/22 11:15 38.0 C H 92 H 18 165/85 H 94 Room Air 04/07/22 08:43 85 04/07/22 08:42 37.8 C H 85 16 155/88 H 96 Room Air 04/07/22 08:22 Room Air 04/07/22 04:11 37.9 C H 80 17 120/71 94 Room Air Laboratory Results Abnormal lab results 04/07/22 04/07/22 04/07/22 Range/Units 06:28 06:28 06:28 RDW Std Deviation 48.1 H (36.4-46.3) fL MPV 8.5 L (9.4-12.3) fL Calcium 8.0 L (8.5-10.1) mg/dl Vitamin B12 > 1500 H (180-914) pg/ml Diagnostic Findings CXR-No acute cardiopulmonary findings. CT head-no acute intracranial findings. MRI brain-No acute intracranial abnormality. Scattered foci of T2 hyperintensity seen within the periventricular and subcortical white matter are nonspecific but favor moderate to severe microvascular ischemic change.
[2022-04-07] MEDS: traZODone HCL 50 MG TAB PO SCH (21:05)
[2022-04-07] MEDS: MIRTAZAPINE TAB 15 MG TAB PO SCH (21:06)
[2022-04-08] MEDS: HEPARIN SOD 5,000 UNIT/0.5 ML VIAL SQ SCH ×3 (06:06→19:48)
[2022-04-08] MEDS: INSULIN ASPART PER UNIT SC SCH ×4 (07:53→21:24)
[2022-04-08] MEDS: CEROVITE ADV FORMULA TAB PO SCH (08:57)
[2022-04-08] MEDS: PANTOprazole 40 MG TAB PO SCH ×2 (08:57→19:48)
[2022-04-08] MEDS: ASPIRIN 81 MG ECTAB PO SCH (08:58)
[2022-04-08] MEDS: busPIRone 5 MG TAB PO SCH ×2 (08:58→19:48)
[2022-04-08] MEDS: CHOLECALCIFEROL 1,000 UNITS 25 MCG TAB PO SCH (08:58)
[2022-04-08] MEDS: MULTIVITAMIN TAB PO SCH (08:58)
[2022-04-08] MEDS: FERROUS SULFATE 325 MG TAB PO SCH ×2 (08:58→19:48)
--- NOTE | 2022-04-08 13:53 | Hospitalist Progress Note ---
Date of Service April 08, 2022 Assessment & Plan (1) BPPV (benign paroxysmal positional vertigo): Plan: vertigo which has persisted for "one month" however her sense of time is off so this isn't actually known. orthostatics negative. No leukocytosis, UA unremarkable. +COVID-[address] head no acute changes. Likely peripheral vertigo 2/2 BPPV in setting of active infection PT eval for Gwendolyn maneuver--difficult to move her around 2/2 significant weakness. Pt reports that she showers herself at home but cannot even stand at side of bed Fall precautions Meclizine prn Neurology consult Normal TSH, normal B12 (2) Memory loss: Plan: No known history of dementia per ANTOINE although sometimes patient appeared forgetful. She lives with 24/7 caregivers from [facility] and ANTOINE feels the confusion may be from here being in the hospital and that even though she is confused and weak, she would like her cared for at home. Pt also has a close friend in town who helps out. We discussed the possibility of dementia and the MRI findings, as well as the idea that ANTOINE should be accompanying her to all dr visits in order to understand what is actually going on (ANTOINE requested me to text her current medication list which was declined--can request formally through medical records). Trazodone held and would strongly consider discontinuation at discharge. (3) COVID-19: Plan: +COVID-19 PCR. CXR without infiltrate. CRP pending, Procalcitonin: 0.2, Lactate: 1.0 In ER given 1L NSS, Cefepime, zofran Airborne isolation Supplemental oxygen as needed Albuterol prn Incentive spirometry, flutter valve Will not continue antibiotics at this time CBC, BMP in am (4) Generalized weakness: Plan: Reported generalized weakness and fatigue past 2 days. History ambulatory dysfunction, uses walker at baseline. Possible from underlying COVID-19 infection Fall precautions PT/OT eval (5) Elevated troponin: Plan: nonspecific, trended down and clinical picture inconsistent with ACS. Initial positive may have been mild demand ischemia in setting of tachycardia and known h/o CAD. (6) CAD (coronary artery disease): Plan: History CAD, silent [place] Initial troponin: 17. EKG sinus tachycardia without acute ST changes Denies CP, SOB Trend troponin Consider echo and cardiology consult if troponin increasing Continue aspirin (7) COPD (chronic obstructive pulmonary disease): Plan: On prn inhaler only No signs exacerbation Continue albuterol prn (8) Diabetes mellitus, type II: Plan: A1c: 5.5 on 02/2022 Monitor BSG, diabetic diet Novolog correction only at this time (9) Anxiety: (10) Tobacco use: Plan: ssmoking cessation advised (11) CKD (chronic kidney disease), stage III: Plan: At baseline. Monitor renal functions, avoid nephrotoxic agents when possible DVT Prophylaxis Heparin SQ Dispo-cont telemetry monitoring for now. Per my conversation with case manageme nt and ANTOINE, patient may be able to have [employer] services again starting Sunday in the home as long as she wears a mask when caregiver is around. Will consider her clinical picture at that time. Mel Wick DO [facility] Hospitalist Admission and Anticipated Discharge Date Admission Date: April 05, 2022 Subjective Patient is an 81-year-old female who presents with 4 weeks of dizziness described as vertigo. She has fallen recently as a result of dizziness and w eakness. She is COVID-positive. In the ER she received 1 L of saline Zofran and Toradol for pain. She was given IV cefepime as empiric antibiotic coverage. She is an active smoker. CT of the head revealed no acute changes. Hallucinating fevers improving she is not ill appearing and denies any symptoms today denies any pain Review of Systems Review of Systems: All systems reviewed negative except as indicated above. Physical Exam Physical Exam: CONSTITUTIONAL: WNWD, vitals as above, generally well- appearing, NAD EYES: normal conjunctivae, normal sclerae ENT: external ear and nose normal, MMM NECK: trachea midline RESPIRATORY: clear to auscultation bilaterally, no crackles, rales or wheezes, normal respiratory effort CARDIOVASCULAR: regular rate and rhythm, S1 and 2 heard without murmurs, ga llops or rubs, no JVD, no peripheral edema CHEST: inspection of chest was normal GASTROINTESTINAL: soft, nontender, ND, no guarding MUSCULOSKELETAL: strength 5/5 throughout, head is normocephalic and atraumatic SKIN: warm and dry NEUROLOGIC: CN 2-12 grossly intact, no sensory deficit, normal cognition, normal speech, no tremor PSYCHIATRIC: alert cooperative and oriented to person, place and today cannot say the date or the year or the say of the week. Again cannot recite any sequence of events prior to this hospital stay Results & Data Results & Data ([facility]) Vital Signs (Past 12 Hours) Vital Signs Temp Pulse Pulse Resp BP BP Pulse Ox 04/08/22 10:27 37.6 C H 87 19 154/77 H 96 04/08/22 09:57 04/08/22 09:56 78 04/08/22 07:50 37.7 C H 89 18 161/87 H 94 04/08/22 04:04 37.5 C 91 H 18 145/79 H 96 O2 Del Method 04/08/22 10:27 Room Air 04/08/22 09:57 Room Air 04/08/22 09:56 04/08/22 07:50 Room Air 04/08/22 04:04 Room Air Medications Administered Current Inpatient Medications Acetaminophen (Acetaminophen 325 Mg Tab) 650 mg PO Q4H PRN PRN Reason: Pain or Fever Stop: 05/05/22 13:22 Albuterol (Albuterol Hfa 8 Gm Inhaler) 2 puffs INH Q6H PRN PRN Reason: Shortness Of Breath Stop: 05/05/22 13:22 Alprazolam (Alprazolam 0.5 Mg Tablet) 0.5 mg PO BID PRN PRN Reason: Anxiety Stop: 05/05/22 13:22 Aspirin (Aspirin 81 Mg Ectab) 81 mg PO QAM MOLLY Stop: 05/06/22 08:59 Last Admin: 04/08/22 08:58 Dose: 81 mg Buspirone HCl (Buspirone 5 Mg Tab) 10 mg PO BID MOLLY Stop: 05/05/22 20:59 Last Admin: 04/08/22 08:58 Dose: 10 mg Dextrose (Dextrose 50% 50 Ml Syringe) 25 - 50 ml IV UD PRN; Protocol PRN Reason: Hypoglycemia Protocol Stop: 05/05/22 13:22 Ferrous Sulfate (Ferrous Sulfate 325 Mg Tab) 325 mg PO BID MOLLY Stop: 05/05/22 20:59 Last Admin: 04/08/22 08:58 Dose: 325 mg Glucagon (Glucagon For Inj 1 Mg Vial) 1 mg SQ UD PRN; Protocol PRN Reason: Hypoglycemia Protocol Stop: 05/05/22 13:22 Glucose (Glucose 40% Gel 15 Gm Tube) 15 - 30 gm PO UD PRN; Protocol PRN Reason: Hypoglycemia Protocol Stop: 05/05/22 13:22 Glucose (Glucose 10 Tab/Tube) 4 - 8 tab PO UD PRN; Protocol PRN Reason: Hypoglycemia Treatment Stop: 05/05/22 13:22 Heparin Sodium (Porcine) (Heparin Sod 5,000 Unit/0.5 Ml Vial) 5,000 units SQ Q8 MOLLY Stop: 05/05/22 13:59 Last Admin: 04/08/22 13:34 Dose: 5,000 units Insulin Aspart (Insulin Aspart Per Unit) 0 units SC ACHS MOLLY Stop: 05/05/22 16:29 Last Admin: 04/08/22 12:17 Dose: Not Given Meclizine HCl (Meclizine 12.5 Mg Tab) 12.5 mg PO Q6H PRN PRN Reason: Dizziness or Vertigo Stop: 05/05/22 13:22 Mirtazapine (Mirtazapine Tab 15 Mg Tab) 22.5 mg PO HS [facility] Stop: 05/05/22 20:59 Last Admin: 04/07/22 21:06 Dose: 22.5 mg Miscellaneous (Carbohydrates For Hypoglycemia ) 15 - 30 gm PO UD PRN PRN Reason: Hypoglycemia Protocol Stop: 05/05/22 13:22 Last Admin: 04/06/22 07:56 Dose: 15 gm Multivitamins (Multivitamin Tab) 1 tab PO QAM MOLLY Stop: 05/06/22 08:59 Last Admin: 04/08/22 08:58 Dose: 1 tab Multivitamins/Minerals (Cerovite Adv Formula Tab) 1 tab PO QAM [facility] Stop: 05/06/22 08:59 Last Admin: 04/08/22 08:57 Dose: 1 tab Pantoprazole Sodium (Pantoprazole 40 Mg Tab) 40 mg PO BID MOLLY; Protocol Stop: 05/05/22 20:59 Last Admin: 04/08/22 08:57 Dose: 40 mg Polyethylene Glycol (Polyethylene (Miralax) 17 Gm Pack) 17 gm PO DAILY PRN PRN Reason: Constipation Stop: 05/05/22 13:22 Trazodone HCl (Trazodone Hcl 50 Mg Tab) 25 mg PO HS MOLLY Stop: 05/05/22 20:59 Last Admin: 04/07/22 21:05 Dose: 25 mg Vitamin D (Cholecalciferol 1,000 Units 25 Mcg Tab) 2,000 [facility] [place] Stop: 05/06/22 08:59 Last Admin: 04/08/22 08:58 Dose: 2,000 units
[2022-04-08] MEDS: MIRTAZAPINE TAB 15 MG TAB PO SCH (19:48)
[2022-04-09] MEDS: HEPARIN SOD 5,000 UNIT/0.5 ML VIAL SQ SCH ×2 (05:46→22:45)
[2022-04-09] MEDS: INSULIN ASPART PER UNIT SC SCH ×4 (07:26→20:05)
[2022-04-09 07:55] LABS: Hematocrit (blood only) 37.8 % (34.1-44.9); Hemoglobin 12.6 g/dl (12.0-16.0); Mean Corpuscular Hemoglobin 30.4 pg (25.0-34.0); Mean Corpuscular Hgb Conc 33.3 g/dL (32.0-36.0); Mean Corpuscular Volume 91.1 fL (80.0-100.0); Mean Platelet Volume 8.6 fL (9.4-12.3); Platelet Count 220 K/uL (130-400); RDW Coefficient of Variation 13.4 % (11.5-14.5); Red Blood Count 4.15 M/uL (3.93-5.22); White Blood Count 5.95 K/ul (4.8-10.8)
[2022-04-09] MEDS: PANTOprazole 40 MG TAB PO SCH ×2 (08:15→22:45)
[2022-04-09] MEDS: CEROVITE ADV FORMULA TAB PO SCH (08:15)
[2022-04-09] MEDS: CHOLECALCIFEROL 1,000 UNITS 25 MCG TAB PO SCH (08:16)
[2022-04-09] MEDS: FERROUS SULFATE 325 MG TAB PO SCH ×2 (08:16→20:05)
[2022-04-09] MEDS: MULTIVITAMIN TAB PO SCH (08:16)
[2022-04-09] MEDS: ASPIRIN 81 MG ECTAB PO SCH (08:16)
[2022-04-09] MEDS: busPIRone 5 MG TAB PO SCH ×2 (08:16→20:05)
[2022-04-09 08:19] LABS: BUN Creatinine Ratio 19.6 (10-20); C Reactive Protein 8.08 mg/dl (0-0.5); Calcium 8.5 mg/dl (8.5-10.1); Est GFR (African American) 67.2 ml/min; Potassium 3.7 mmol/L (3.5-5.1)
--- NOTE | 2022-04-09 11:10 | XRay Report ---
XR chest 1V portable CLINICAL HISTORY: fever, COVID infection COMPARISON STUDY: Chest radiograph April 05, 2020. FINDINGS: Patient is rotated. Lung volumes are normal. There is apparent left lower lobe airspace opa city. There is no pneumothorax or pleural effusion. Cardiac size is normal. Mediastinal contours are normal. There is no evidence for pulmonary edema. IMPRESSION: Apparent left lower lobe airspace opacity. This favors an infectious process. Less like ly, this could reflect summation artifact. ACT 112: Negative or not required by law. Electronically signed by: Logan Neumann M.D. 04/09/2022 11:07 AM
--- NOTE | 2022-04-09 14:28 | CT Scan Report ---
CT OF THE CHEST WITHOUT IV CONTRAST CLINICAL HISTORY: r/o pneumonia COMPARISON STUDY: Chest radiograph performed earlier today. Chest CT September 16, 2019. CT DOSE: 225.36 mGy.cm TECHNIQUE: Axial images of the chest were obtained without IV contrast. Images were reviewed in the axial, sagittal, and coronal planes. IV contrast was not administered for this examination. Automat ed exposure control was utilized for the study. A dose lowering technique was utilized adhering to t he principles of ALARA. FINDINGS: A small hiatal hernia is noted. No enlarged axillary, mediastinal or hilar lymph nodes are present. Moderate left lower lobe airspace opacity is present. This corresponds to the finding on est radiograph performed earlier today. There is mild right lower lobe airspace opacity. No cavitatio n is present. Lungs are suboptimally assessed due to respiratory motion. Minimal groundglass opacity within the lingula is present. 4 mm right middle lobe nodule on axial image 206 of 311 is unchanged. There is no pneumothorax. Trace bilateral pleural effusions. Bilateral adrenal nodules are likely sahra ign. Gallstones are incidentally noted within the gallbladder. No acute fracture or suspicious lesion within the visualized bony thorax. IMPRESSION: 1. Bilateral lower lobe airspace opacities, greater on the left. Mild lingular groundglass opacity. T he findings are suggestive of an infectious process. 2. Trace bilateral pleural effusions. No pneumothorax. 3. Small hiatal hernia. ACT 112: Negative or not required by law. Electronically signed by: Logan Neumann M.D. 04/09/2022 2:26 PM
[2022-04-09] MEDS ORDERED: REMDESIVIR 200 MG in SODIUM CHLORIDE 0.9% 210 ML IV STA (15:43)
--- NOTE | 2022-04-09 16:24 | Hospitalist Progress Note ---
Date of Service April 09, 2022 Assessment & Plan (1) BPPV (benign paroxysmal positional vertigo): Plan: Per Dr. Wick's notes with addendum: vertigo which has persisted for "one month" however her sense of time is off so this isn't actually known. orthostatics negative. No leukocytosis, UA unremarkable. +COVID-[address] head no acute changes. Likely peripheral vertigo 2/2 BPPV in setting of active infection PT eval for Gwendolyn maneuver--difficult to move her around 2/2 significant weakness. Pt reports that she showers herself at home but cannot even stand at side of bed Fall precautions Meclizine prn Neurology consult Normal TSH, normal B12 April 09: Denies dizziness today No other focal neurologic deficits noted (2) Memory loss: Plan: No known history of dementia per ANTOINE although sometimes patient appeared forgetful. She lives with 24/7 caregivers from [facility] and ANTOINE feels the confusion may be from here being in the hospital and that even though she is confused and weak, she would like her cared for at home. Pt also has a close friend in town who helps out. We discussed the possibility of dementia and the MRI findings, as well as the idea that ANTOINE should be accompanying her to all dr visits in order to understand what is actually going on (ANTOINE requested me to text her current medication list which was declined--can request formally through medical records). Trazodone held and would strongly consider discontinuation at discharge. April 09: Was confused this morning per RN, on my exam mostly oriented Continue delirium prevention strategies, discussed with RN (3) COVID-19: Plan: +COVID-19 PCR. CXR without infiltrate. CRP pending, Procalcitonin: 0.2, Lactate: 1.0 In ER given 1L NSS, Cefepime, zofran Airborne isolation Supplemental oxygen as needed Albuterol prn 04/09: Fever 38 degrees this morning, Fever curve to reviewed CT chest: Showing bilateral lower lobe pneumonia greater on the left Blood cultures: Pending Urinalysis: Pending Start: Cefepime IV Remdesivir day #1-Monitor LFTs and renal function Incentive spirometry, flutter valve, Mucinex twice daily Heparin on hold in light of melena noted this morning Melena FOBT negative Repeat hemoglobin pending Hold aspirin and heparin subcu Protonix IV twice daily Monitor (4) Generalized weakness: Plan: Reported generalized weakness and fatigue past 2 days. History ambulatory dysfunction, uses walker at baseline. Possible from underlying COVID-19 infection Fall precautions PT/OT eval 04/09 Likely secondary to COVID 19 infection, pneumonia Continue PT and OT evaluation (5) Elevated troponin: Plan: nonspecific, trended down and clinical picture inconsistent with ACS. Initial positive may have been mild demand ischemia in setting of tachycardia and known h/o CAD. (6) CAD (coronary artery disease): Plan: History CAD, silent [place] Initial troponin: 17. EKG sinus tachycardia without acute ST changes Denies CP, SOB Trend troponin Consider echo and cardiology consult if troponin increasing Continue aspirin 04/09:Troponin level highest was 17, trended down No cardiac symptoms (7) COPD (chronic obstructive pulmonary disease): Plan: On prn inhaler only No signs exacerbation, Monitor closely Continue albuterol prn (8) Diabetes mellitus, type II: Plan: A1c: 5.5 on 02/2022 Monitor BSG, diabetic diet Novolog correction only at this time (9) Anxiety: (10) Tobacco use: Plan: ssmoking cessation advised (11) CKD (chronic kidney disease), stage III: Plan: At baseline. Monitor renal functions, avoid nephrotoxic agents when possible DVT Prophylaxis Heparin SQ Dispo-Pending Lives at home by herself, with caregivers daily PT OT evaluation plan of care discussed with patientAnd her [id number] Ms. Lucy Agudelo over the phone in detail and at length all questions answered They are understanding, agreeable, comfortable with the plan of care Admission and Anticipated Discharge Date Admission Date: April 05, 2022 Subjective April 09: Follow-up for COVID-19 infection, dizziness, etc. Seen resting in bed, comfortable, not in distress, on room air Oriented x2-3, answers all questions appropriately, calm and cooperative States she feels okay overall Still feels weak, poor appetite Having some productive cough with yellow sputum No chest pain, shortness of breath, palpitations, dizziness No abdominal, nausea vomiting, diarrhea No other symptoms Review of Systems Review of Systems: all noted and negative except for above Physical Exam Physical Exam: General- oriented x 2-3, not in distress, speaks in sentences with no effort or accessory muscle use Eyes- anicteric Neck- no JVD Lungs- Positive mild rales at the bases No wheezing Good air entry bilaterally Heart- normal rate, regular rhythm; no murmurs Abdomen- normal bowel sounds, nondistended, soft, nontender Extremities- no pretibial edema, no calf tenderness Neuro- alert, oriented x 3; no gross focal neurologic deficits Skin- warm & dry Results & Data Results & Data ([facility]) Vital Signs (Past 12 Hours) Vital Signs Temp Pulse Pulse Resp BP BP Pulse Ox 04/09/22 14:52 37.1 C 86 27 H 138/85 97 04/09/22 11:06 37.4 C 73 22 116/75 97 04/09/22 10:06 71 04/09/22 07:19 38 C H 84 16 121/76 95 O2 Del Method 04/09/22 14:52 Room Air 04/09/22 11:06 Room Air 04/09/22 10:06 04/09/22 07:19 Room Air
[2022-04-09] MEDS: CARBOHYDRATES FOR HYPOGLYCEMIA PO PRN (17:05)
[2022-04-09 17:44] LABS: Hematocrit (blood only) 39.3 % (34.1-44.9); Hemoglobin 12.8 g/dl (12.0-16.0)
[2022-04-09] MEDS: CEFEPIME 2,000 MG in SYRINGE 0 ML IV SCH (17:48)
[2022-04-09] MEDS: guaiFENesin 600 MG TABCR PO SCH (17:50)
[2022-04-09] MEDS: MIRTAZAPINE TAB 15 MG TAB PO SCH (20:05)
[2022-04-09] MEDS ORDERED: PANTOprazole 40 MG in SYRINGE 0 ML IV SCH (21:00)
[2022-04-10 00:15] LABS: Appearance Urine Clear (Clear); Bacteria Urine Automated 1+ (Negative); Bilirubin Urine Negative (Negative); Blood Urine 1+ (Negative); Cast Urine Automated 0 /lpf (0-5); Color Urine Yellow; Epithelial Cell Urine Auto >30 /lpf (0-5); Glucose Urine UA Negative (Negative); Ketones Urine Trace (Negative); Leukocyte Esterase Urine 2+ (Negative); Nitrite Urine Negative (Negative); Protein Urine 1+ (Negative); Specific Gravity Urine 1.018 (1.000-1.030); Urobilinogen Urine Negative (Negative)
[2022-04-10 00:25] LABS: RBC Urine Automated 0-4 /hpf (0-4)
[2022-04-10] MEDS: CEFEPIME 2,000 MG in SYRINGE 0 ML IV SCH ×2 (04:28→15:19)
[2022-04-10] MEDS: HEPARIN SOD 5,000 UNIT/0.5 ML VIAL SQ SCH ×3 (04:28→21:43)
[2022-04-10 06:55] LABS: Estimated Average Glucose 117 mg/dl; Hemoglobin A1C 5.7 % (4.5-5.6)
[2022-04-10 07:29] LABS: Albumin Globulin Ratio 0.9 (0.9-2); Albumin Level 3.2 gm/dl (3.4-5.0); BUN Creatinine Ratio 23.8 (10-20); Bilirubin,Total 0.3 mg/dl (0.2-1.0); Calcium 8.4 mg/dl (8.5-10.1); Creatinine Clr Calc Pharmacy 36.3 ml/min; Est GFR (Non-African American) 51.8 ml/min; Globulin 3.4 gm/dl (2.5-4.0); Potassium 3.7 mmol/L (3.5-5.1); Total Protein 6.6 gm/dl (6.0-8.3)
[2022-04-10] MEDS: INSULIN ASPART PER UNIT SC SCH ×4 (07:46→20:09)
[2022-04-10] MEDS: PANTOprazole 40 MG TAB PO SCH ×2 (09:01→19:32)
[2022-04-10] MEDS: guaiFENesin 600 MG TABCR PO SCH ×2 (09:01→19:31)
[2022-04-10] MEDS: ASPIRIN 81 MG ECTAB PO SCH (09:02)
[2022-04-10] MEDS: CEROVITE ADV FORMULA TAB PO SCH (09:02)
[2022-04-10] MEDS: MULTIVITAMIN TAB PO SCH (09:02)
[2022-04-10] MEDS: busPIRone 5 MG TAB PO SCH ×2 (09:02→19:30)
[2022-04-10] MEDS: FERROUS SULFATE 325 MG TAB PO SCH ×2 (09:02→19:31)
[2022-04-10] MEDS: CHOLECALCIFEROL 1,000 UNITS 25 MCG TAB PO SCH (09:02)
--- NOTE | 2022-04-10 16:19 | Hospitalist Progress Note ---
Date of Service April 10, 2022 Assessment & Plan (1) BPPV (benign paroxysmal positional vertigo): Plan: Per Dr. Wick's notes with addendum: vertigo which has persisted for "one month" however her sense of time is off so this isn't actually known. orthostatics negative. No leukocytosis, UA unremarkable. +COVID-[address] head no acute changes. Likely peripheral vertigo 2/2 BPPV in setting of active infection PT eval for Gwendolyn maneuver--difficult to move her around 2/2 significant weakness. Pt reports that she showers herself at home but cannot even stand at side of bed Fall precautions Meclizine prn Neurology consult Normal TSH, normal B12 04/10: Denies dizziness today No other focal neurologic deficits noted (2) Memory loss: Plan: No known history of dementia per ANTOINE although sometimes patient appeared forgetful. She lives with 24/7 caregivers from [facility] and ANTOINE feels the confusion may be from here being in the hospital and that even though she is confused and weak, she would like her cared for at home. Pt also has a close friend in town who helps out. We discussed the possibility of dementia and the MRI findings, as well as the idea that ANTOINE should be accompanying her to all dr visits in order to understand what is actually going on (ANTOINE requested me to text her current medication list which was declined--can request formally through medical records). Trazodone held and would strongly consider discontinuation at discharge. 04/10: Was confused earlier today per RN, on my exam mostly oriented Continue delirium prevention strategies, discussed with RN (3) COVID-19: Plan: +COVID-19 PCR. CXR without infiltrate. CRP pending, Procalcitonin: 0.2, Lactate: 1.0 In ER given 1L NSS, Cefepime, zofran Airborne isolation Supplemental oxygen as needed Albuterol prn 04/10 Fever 38 degrees this morning, has intermittent fever past few days remains on room air CT chest: Showing bilateral lower lobe pneumonia greater on the left sputum culture: pending Blood cultures: Pending Urine culture: Pending Day 2 Cefepime IV Remdesivir day # 2-Monitor LFTs and renal function temp 37.6 this morning seems to be clinically better today has poor appetite, encouraged to drink boost Incentive spirometry, flutter valve, Mucinex twice daily Heparin SC for DVT prophylaxis Melena FOBT negative Repeat hemoglobin stable likely from Iron supplement (4) Generalized weakness: Plan: Reported generalized weakness and fatigue past 2 days. History ambulatory dysfunction, uses walker at baseline. Possible from underlying COVID-19 infection Fall precautions PT/OT eval 04/10 Likely secondary to COVID 19 infection, pneumonia Continue PT and OT evaluation (5) Elevated troponin: Plan: nonspecific, trended down and clinical picture inconsistent with ACS. Initial positive may have been mild demand ischemia in setting of tachycardia and known h/o CAD. (6) CAD (coronary artery disease): Plan: History CAD, silent [place] Initial troponin: 17. EKG sinus tachycardia without acute ST changes Denies CP, SOB Trend troponin Consider echo and cardiology consult if troponin increasing Continue aspirin 04/10:Troponin level highest was 17, trended down No cardiac symptoms (7) COPD (chronic obstructive pulmonary disease): Plan: On prn inhaler only No signs exacerbation, Monitor closely Continue albuterol prn (8) Diabetes mellitus, type II: Plan: A1c: 5.5 on 02/2022 Monitor BSG, diabetic diet Novolog correction only at this time (9) Anxiety: (10) Tobacco use: Plan: ssmoking cessation advised (11) CKD (chronic kidney disease), stage III: Plan: At baseline. Monitor renal functions, avoid nephrotoxic agents when possible DVT Prophylaxis Heparin SQ Dispo-Pending Lives at home by herself, with caregivers daily PT OT evaluation plan of care discussed with patient And her [id number] Ms. Lucy Agudelo over the phone in detail and at length all questions answered They are understanding, agreeable, comfortable with the plan of care Admission and Anticipated Discharge Date Admission Date: April 05, 2022 Subjective ff up for COVID pneumonia, etc seen resting in bed, comfortable oriented, answers most questions appropriately states she feels somewhat better than yesterday less cough no chest pain, dyspnea, palpitations, dizziness no abdominal pain, nausea, diarrhea no other symptoms Review of Systems Review of Systems: all noted and negative except for above Physical Exam Physical Exam: General- oriented x 2, not in distress, speaks in sentences with no effort or accessory muscle use Eyes- anicteric Neck- no JVD Lungs- mild rales at the bases, improved from yseterday no wheezing Heart- normal rate, regular rhythm; no murmurs Abdomen- normal bowel sounds, nondistended, soft, nontender Extremities- no pretibial edema, no calf tenderness Neuro- alert, oriented x 2; no gross focal neurologic deficits Skin- warm & dry Results & Data Results & Data ([facility]) Vital Signs (Past 12 Hours) Vital Signs Temp Pulse Pulse Resp BP Pulse Ox 04/10/22 15:02 103 H 04/10/22 08:00 37.6 C H 90 18 120/65 96 04/10/22 07:09 91 H all noted and reviewed including below
[2022-04-10] MEDS: MIRTAZAPINE TAB 15 MG TAB PO SCH (19:31)
[2022-04-10] MEDS: REMDESIVIR 100 MG in SODIUM CHLORIDE 0.9% 230 ML IV SCH (20:09)
[2022-04-11] MEDS: HEPARIN SOD 5,000 UNIT/0.5 ML VIAL SQ SCH ×3 (05:17→21:18)
[2022-04-11] MEDS: CEFEPIME 2,000 MG in SYRINGE 0 ML IV SCH ×2 (05:17→15:32)
[2022-04-11] MEDS: INSULIN ASPART PER UNIT SC SCH ×4 (07:53→21:21)
[2022-04-11] MEDS: FERROUS SULFATE 325 MG TAB PO SCH ×2 (08:15→21:20)
[2022-04-11] MEDS: PANTOprazole 40 MG TAB PO SCH ×2 (08:15→21:20)
[2022-04-11] MEDS: CEROVITE ADV FORMULA TAB PO SCH (08:16)
[2022-04-11] MEDS: guaiFENesin 600 MG TABCR PO SCH ×2 (08:16→21:19)
[2022-04-11] MEDS: CHOLECALCIFEROL 1,000 UNITS 25 MCG TAB PO SCH (08:16)
[2022-04-11] MEDS: ASPIRIN 81 MG ECTAB PO SCH (08:16)
[2022-04-11] MEDS: MULTIVITAMIN TAB PO SCH (08:16)
[2022-04-11] MEDS: busPIRone 5 MG TAB PO SCH ×2 (08:16→21:21)
[2022-04-11 08:44] LABS: Albumin Globulin Ratio 0.9 (0.9-2); Albumin Level 3.2 gm/dl (3.4-5.0); BUN Creatinine Ratio 29.9 (10-20); Bilirubin,Total 0.4 mg/dl (0.2-1.0); Calcium 8.5 mg/dl (8.5-10.1); Creatinine Clr Calc Pharmacy 33.5 ml/min; Est GFR (African American) 50.3 ml/min; Est GFR (Non-African American) 43.4 ml/min; Globulin 3.6 gm/dl (2.5-4.0); Potassium 3.7 mmol/L (3.5-5.1); Total Protein 6.8 gm/dl (6.0-8.3)
--- NOTE | 2022-04-11 15:36 | Hospitalist Progress Note ---
Date of Service April 11, 2022 Assessment & Plan (1) COVID-19: Plan: +COVID-19 PCR. CXR without infiltrate. CT of the chest showed bilateral lower lobe airspace opacities and trace bilateral effusion compatible with COVID-19 virus infection CRP is elevated at 8.08, Procalcitonin: 0.2, Lactate: 1.0 Airborne isolation precaution Remdesivir day # 3-Monitor LFTs and renal function Supplemental oxygen as needed Albuterol prn Denies any shortness of breath or cough at rest and has been saturating on room air Cumulative fluid balance is +2792-Will give a dose of Lasix today Has poor appetite, encouraged to drink boost Incentive spirometry, flutter valve, Mucinex twice daily Possible pneumonia/bacterial infiltration In ER given 1L NSS, Cefepime due to suspicion of pneumonia, zofran sputum culture: Normal marcela Blood cultures: Negative Urine culture: Growing probable Enterococcus Day 3 Cefepime IV Heparin SC for DVT prophylaxis Melena FOBT negative Repeat hemoglobin stable likely from Iron supplement (2) BPPV (benign paroxysmal positional vertigo): Plan: Per Dr. Wick's notes with addendum: vertigo which has persisted for "one month" however her sense of time is off so this isn't actually known. orthostatics negative. No leukocytosis, UA unremarkable. +COVID-[address] head no acute changes. Likely peripheral vertigo 2/2 BPPV in setting of active infection PT eval for Gwendolyn maneuver--difficult to move her around 2/2 significant weakness. Pt reports that she showers herself at home but cannot even stand at side of bed Fall precautions Meclizine prn Neurology consult-appreciate input and recommendation Normal TSH, normal B12 (3) Memory loss: Plan: No known history of dementia per ANTOINE although sometimes patient appeared forgetful. She lives with 24/7 caregivers from [facility] and ANTOINE feels the confusion may be from here being in the hospital and that even though she is confused and weak, she would like her cared for at home. Pt also has a close friend in town who helps out. We discussed the possibility of dementia and the MRI findings, as well as the idea that ANTOINE should be accompanying her to all dr visits in order to understand what is actually going on (ANTOINE requested me to text her current medication list which was declined--can request formally through medical records). Trazodone held and would strongly consider discontinuation at discharge. No more confusion as of today (4) Generalized weakness: Plan: Reported generalized weakness and fatigue past 2 days. History ambulatory dysfunction, uses walker at baseline. Possible from underlying COVID-19 infection Fall precautions PT/OT eval (5) Elevated troponin: Plan: nonspecific, trended down and clinical picture inconsistent with ACS. Initial positive may have been mild demand ischemia in setting of tachycardia and known h/o CAD. No evidence of ACS (6) CAD (coronary artery disease): Plan: History CAD, silent [place] Initial troponin: 17. EKG sinus tachycardia without acute ST changes Denies CP, SOB Trend troponin Consider echo and cardiology consult if troponin increasing Continue aspirin (7) COPD (chronic obstructive pulmonary disease): Plan: On prn inhaler only No signs exacerbation, Monitor closely Continue albuterol prn (8) Diabetes mellitus, type II: Plan: A1c: 5.5 on 02/2022 Monitor BSG, diabetic diet Novolog correction only at this time (9) Anxiety: (10) Tobacco use: Plan: ssmoking cessation advised (11) CKD (chronic kidney disease), stage III: Plan: At baseline. Monitor renal functions, avoid nephrotoxic agents when possible DVT Prophylaxis Heparin SQ Dispo-Pending Lives at home by herself, with caregivers daily PT OT evaluation Discussed with the [id number] and answered all of her questions Admission and Anticipated Discharge Date Admission Date: April 05, 2022 Subjective 04/11/2022 The patient was seen and examined in telemetry unit and in the COVID room She complains to extreme weakness and tiredness Denies any respiratory symptoms or any cough and/or shortness of breath No fever and or chills Review of Systems Review of Systems: All systems reviewed and are unremarkable except as noted below Physical Exam Physical Exam: Lying in bed comfortably but looks very depressed Constitutional: + ill appearing and + thin Eyes: PERRL, conjunctivae normal, anicteric sclerae ENMT: external ear and nose normal, oropharynx normal Neck: trachea midline, no thyromegaly Respiratory: no respiratory distress Auscultation: lungs clear to auscultation bilaterally and + diminished lung sounds; no crackles Cardiovascular: Rate/Rhythm: regular rate, regular rhythm and + tachycardic Heart Sounds: normal S1 and normal S2; no murmur Extremities: + edema (Trace edema bilaterally) Gastrointestinal (Abdomen): Inspection/Auscultation: normal bowel sounds; a bdomen not distended Percussion/Palpation: abdomen soft; abdomen nontender Musculoskeletal: No acute arthritis in any joint Neurologic: normal touch/pain/proprioception and moves all extremities; not confused Alert, awake and oriented x3. Generally very weak and lethargic Lymphatic: no cervical or axillary lymphadenopathy Results & Data Results & Data ([facility]) Vital Signs (Past 12 Hours) Vital Signs Temp Pulse Pulse Resp BP BP Pulse Ox 04/11/22 10:57 37.7 C H 104 H 16 133/90 97 04/11/22 08:00 101 H 04/11/22 08:00 04/11/22 07:51 37.3 C 99 H 18 139/83 95 O2 Del Method 04/11/22 10:57 Room Air 04/11/22 08:00 04/11/22 08:00 Room Air 04/11/22 07:51 Room Air Laboratory Results BMP 04/11/22 08:07 Sodium 138 Potassium 3.7 Chloride 105 Carbon Dioxide 20 L BUN 35 H Creatinine 1.17 Glucose 108 H Calcium 8.5 Liver Function 04/11/22 Range/Units 08:07 Total Bilirubin 0.4 (0.2-1.0) mg/dl AST 21 (13-39) U/L ALT 8 (7-52) U/L Alkaline Phosphatase 66 (34-104) U/L Albumin 3.2 L (3.4-5.0) gm/dl Medications Administered Current Inpatient Medications Acetaminophen (Acetaminophen 325 Mg Tab) 650 mg PO Q4H PRN PRN Reason: Pain or Fever Stop: 05/05/22 13:22 Last Admin: 04/09/22 08:15 Dose: 650 mg Albuterol (Albuterol Hfa 8 Gm Inhaler) 2 puffs INH Q6H PRN PRN Reason: Shortness Of Breath Stop: 05/05/22 13:22 Alprazolam (Alprazolam 0.5 Mg Tablet) 0.5 mg PO BID PRN PRN Reason: Anxiety Stop: 05/05/22 13:22 Aspirin (Aspirin 81 Mg Ectab) [facility] Stop[facility] 05/06/22 08:59 Last Admin: 04/11/22 08:16 Dose: 81 mg Buspirone HCl (Buspirone 5 Mg Tab) 10 mg PO BID [facility] Stop: 05/05/22 20:59 Last Admin: 04/11/22 08:16 Dose: 10 mg Dextrose (Dextrose 50% 50 Ml Syringe) 25 - 50 ml IV UD PRN; Protocol PRN Reason: Hypoglycemia Protocol Stop: 05/05/22 13:22 Ferrous Sulfate (Ferrous Sulfate 325 Mg Tab) 325 mg PO BID MOLLY Stop: 05/05/22 20:59 Last Admin: 04/11/22 08:15 Dose: 325 mg Glucagon (Glucagon For Inj 1 Mg Vial) 1 mg SQ UD PRN; Protocol PRN Reason: Hypoglycemia Protocol Stop: 05/05/22 13:22 Glucose (Glucose 40% Gel 15 Gm Tube) 15 - 30 gm PO UD PRN; Protocol PRN Reason: Hypoglycemia Protocol Stop: 05/05/22 13:22 Glucose (Glucose 10 Tab/Tube) 4 - 8 tab PO UD PRN; Protocol PRN Reason: Hypoglycemia Treatment Stop: 05/05/22 13:22 Guaifenesin (Guaifenesin 600 Mg Tabcr) 1,200 mg PO Q12 [facility] Stop: 05/09/22 15:39 Last Admin: 04/11/22 08:16 Dose: 1,200 mg Heparin Sodium (Porcine) (Heparin Sod 5,000 Unit/0.5 Ml Vial) 5,000 units SQ Q8 [facility] Stop: 05/05/22 13:59 Last Admin: 04/11/22 13:45 Dose: 5,000 units Cefepime HCl 2,000 mg/ Syringe 20 mls @ 5 mls/min IV Q12H [facility]; Protocol Stop: 04/16/22 15:59 Last Admin: 04/11/22 15:32 Dose: 5 mls/min Remdesivir 100 mg/ Sodium (Chloride) 250 mls @ 250 mls/hr IV DAILY@1999 [facility] Stop: 04/13/22 20:59 Last Infusion: 04/10/22 23:46 Dose: Infused Insulin Aspart (Insulin Aspart Per Unit) 0 units SC ACHS [facility] Stop: 05/05/22 16:29 Last Admin: 04/11/22 11:11 Dose: Not Given Meclizine HCl (Meclizine 12.5 Mg Tab) 12.5 mg PO Q6H PRN PRN Reason: Dizziness or Vertigo Stop: 05/05/22 13:22 Mirtazapine (Mirtazapine Tab 15 Mg Tab) 22.5 mg PO HS MOLLY Stop: 05/05/22 20:59 Last Admin: 04/10/22 19:31 Dose: 22.5 mg Miscellaneous (Carbohydrates For Hypoglycemia ) 15 - 30 gm PO UD PRN PRN Reason: Hypoglycemia Protocol Stop: 05/05/22 13:22 Last Admin: 04/09/22 17:05 Dose: 15 gm Multivitamins (Multivitamin Tab) 1 tab PO QAM MO[facility] Stop: 05/06/22 08:59 Last Admin: 04/11/22 08:16 Dose: 1 tab Multivitamins/Minerals (Cerovite Adv Formula Tab) 1 tab PO QAM [facility] Stop: 05/06/22 08:59 Last Admin: 04/11/22 08:16 Dose: 1 tab Pantoprazole Sodium (Pantoprazole 40 Mg Tab) 40 mg PO BID MO[facility] Stop: 05/09/22 20:59 Last Admin: 04/11/22 08:15 Dose: 40 mg Polyethylene Glycol (Polyethylene (Miralax) 17 Gm Pack) 17 gm PO DAILY PRN PRN Reason: Constipation Stop: 05/05/22 13:22 Trazodone HCl (Trazodone Hcl 50 Mg Tab) 25 mg PO HS [facility] Stop: 05/05/22 20:59 Last Admin: 04/07/22 21:05 Dose: 25 mg Vitamin D (Cholecalciferol 1,000 Units 25 Mcg Tab) 2,000 units PO QAM [facility] Stop: 05/06/22 08:59 Last Admin: 04/11/22 08:16 Dose: 2,000 units
[2022-04-11] MEDS ORDERED: FUROSEMIDE 40 MG/4 ML VIAL IV ONE (15:45)
[2022-04-11] MEDS: REMDESIVIR 100 MG in SODIUM CHLORIDE 0.9% 230 ML IV SCH (21:13)
[2022-04-11] MEDS: MIRTAZAPINE TAB 15 MG TAB PO SCH (21:20)
[2022-04-12] MEDS: CEFEPIME 2,000 MG in SYRINGE 0 ML IV SCH (03:24)
[2022-04-12] MEDS: HEPARIN SOD 5,000 UNIT/0.5 ML VIAL SQ SCH ×3 (06:11→22:29)
[2022-04-12] MEDS: INSULIN ASPART PER UNIT SC SCH ×4 (07:50→21:00)
[2022-04-12] MEDS: busPIRone 5 MG TAB PO SCH ×3 (08:25→22:20)
[2022-04-12] MEDS: CEROVITE ADV FORMULA TAB PO SCH ×2 (08:25→08:34)
[2022-04-12] MEDS: FERROUS SULFATE 325 MG TAB PO SCH ×3 (08:26→22:21)
[2022-04-12] MEDS: guaiFENesin 600 MG TABCR PO SCH ×2 (08:26→08:34)
[2022-04-12] MEDS: MULTIVITAMIN TAB PO SCH ×2 (08:26→08:34)
[2022-04-12] MEDS: CHOLECALCIFEROL 1,000 UNITS 25 MCG TAB PO SCH ×2 (08:26→08:33)
[2022-04-12] MEDS: ASPIRIN 81 MG ECTAB PO SCH ×2 (08:26→08:33)
[2022-04-12] MEDS: PANTOprazole 40 MG TAB PO SCH ×3 (08:26→22:21)
[2022-04-12] MEDS ORDERED: AMOXICILLIN 500 MG CAP PO SCH (09:00)
[2022-04-12] MEDS ORDERED: Nursing to Pharmacy Communication SCH (09:15)
[2022-04-12 09:23] LABS: Basophils # (auto) 0.03 K/uL (0-0.2); Basophils % (auto) 0.2 %; Hematocrit (blood only) 41.9 % (34.1-44.9); Hemoglobin 13.6 g/dl (12.0-16.0); Immature Granulocytes # (auto) 0.08 K/uL (0.00-0.02); Immature Granulocytes % (auto) 0.6 %; Lymphocytes % (auto) 7.5 %; Mean Corpuscular Hemoglobin 29.6 pg (25.0-34.0); Mean Corpuscular Hgb Conc 32.5 g/dL (32.0-36.0); Mean Corpuscular Volume 91.1 fL (80.0-100.0); Mean Platelet Volume 9.2 fL (9.4-12.3); Monocytes % (auto) 5.2 %; Neutrophils % (auto) 86.5 %; Platelet Count 410 K/uL (130-400); RDW Coefficient of Variation 13.6 % (11.5-14.5); RDW Standard Deviation 45.9 fL (36.4-46.3); White Blood Count 13.41 K/ul (4.8-10.8)
[2022-04-12] MEDS ORDERED: AMOXICILLIN SUSP 400 MG/5 ML PO SCH (09:30)
[2022-04-12] MEDS ORDERED: guaiFENesin/DEXTROM SYRUP 200MG/20MG 10ML UDC PO PRN (09:39)
[2022-04-12 09:47] LABS: Albumin Globulin Ratio 0.8 (0.9-2); Albumin Level 3.3 gm/dl (3.4-5.0); Bilirubin,Total 0.4 mg/dl (0.2-1.0); C Reactive Protein 9.64 mg/dl (0-0.5); Calcium 8.9 mg/dl (8.5-10.1); Creatinine Clr Calc Pharmacy 22.6 ml/min; Est GFR (African American) 31.1 ml/min; Est GFR (Non-African American) 26.8 ml/min; Globulin 3.9 gm/dl (2.5-4.0); Phosphorus 4.5 mg/dl (2.5-4.9); Potassium 3.5 mmol/L (3.5-5.1); Total Protein 7.2 gm/dl (6.0-8.3)
--- NOTE | 2022-04-12 11:19 | XRay Report ---
SINGLE VIEW CHEST CLINICAL HISTORY: Aspiration. FINDINGS: An AP, portable, upright chest radiograph is compared to chest x-ray and chest CT dated 03/12. The heart is enlarged noting atherosclerotic calcification of the thoracic aorta. The pulmona ry vasculature is noncongested. Chronic interstitial thickening is similar to previous. Mild airspace opacities are again seen at the left lung base in the retrocardiac region. The right lung appears cl ear. No large pleural effusion or pneumothorax is identified. The skeletal structures are osteopenic. The bony thorax is grossly intact. IMPRESSION: 1. Mild airspace opacities are again seen at the left lung base and suggest pneumonia/aspiration pneu monitis. Radiographic follow-up to resolution is recommended. Follow-up should include both PA and la teral views. 2. Cardiomegaly without radiographic evidence of congestive failure. ACT 112: Negative or not required by law. Electronically signed by: Colby Harvey M.D. 04/12/2022 11:17 AM
[2022-04-12] MEDS: AMPICILLIN 1,000 MG in SODIUM CHLOR 0.9% AD-VAN 50 ML IV SCH ×2 (11:48→22:30)
--- NOTE | 2022-04-12 15:45 | Hospitalist Progress Note ---
Date of Service April 12, 2022 Assessment & Plan (1) COVID-19: Plan: +COVID-19 PCR. CXR without infiltrate. CT of the chest showed bilateral lower lobe airspace opacities and trace bilateral effusion compatible with COVID-19 virus infection CRP is elevated at 8.08, Procalcitonin: 0.2, Lactate: 1.0 Airborne isolation precaution Remdesivir day # 4-Monitor LFTs and renal function Supplemental oxygen as needed Albuterol prn Denies any shortness of breath or cough at rest and has been saturating on room air Cumulative fluid balance is +2792-Will give a dose of Lasix today Has poor appetite, encouraged to drink boost Incentive spirometry, flutter valve, Mucinex twice daily Denies any shortness of breath and has been on 2 L of oxygen to maintain saturation. Saturation remains at 91% with room air CRP remains elevated at more than 9 We will start dexamethasone We will continue current management Episode of aspiration N.p.o. for now We will get speech evaluation before restarting any food Possible pneumonia/bacterial infiltration In ER given 1L NSS, Cefepime due to suspicion of pneumonia, zofran sputum culture: Normal marcela Blood cultures: Negative Urine culture: Growing probable Enterococcus Day 3 Cefepime IV Cefepime has been discontinued Started on intravenous ampicillin for Enterococcus UTI and further identification and sensitivity are pending Heparin SC for DVT prophylaxis Melena FOBT negative Repeat hemoglobin stable likely from Iron supplement (2) BPPV (benign paroxysmal positional vertigo): Plan: Per Dr. Wick's notes with addendum: vertigo which has persisted for "one month" however her sense of time is off so this isn't actually known. orthostatics negative. No leukocytosis, UA unremarkable. +COVID-[address] head no acute changes. Likely peripheral vertigo 2/2 BPPV in setting of active infection PT eval for Gwendolyn maneuver--difficult to move her around 2/2 significant weakness. Pt reports that she showers herself at home but cannot even stand at side of bed Fall precautions Meclizine prn Neurology consult-appreciate input and recommendation Normal TSH, normal B12 (3) Memory loss: Plan: No known history of dementia per ANTOINE although sometimes patient appeared forgetful. She lives with 24/7 caregivers from [facility] and ANTOINE feels the confusion may be from here being in the hospital and that even though she is confused and weak, she would like her cared for at home. Pt also has a close friend in town who helps out. We discussed the possibility of dementia and the MRI findings, as well as the idea that ANTOINE should be accompanying her to all dr visits in order to understand what is actually going on (ANTOINE requested me to text her current medication list which was declined--can request formally through medical records). Trazodone held and would strongly consider discontinuation at discharge. Remains pleasantly confused (4) Generalized weakness: Plan: Reported generalized weakness and fatigue past 2 days. History ambulatory dysfunction, uses walker at baseline. Possible from underlying COVID-19 infection Fall precautions PT/OT eval (5) Elevated troponin: Plan: nonspecific, trended down and clinical picture inconsistent with ACS. Initial positive may have been mild demand ischemia in setting of tachycardia and known h/o CAD. No evidence of ACS (6) CAD (coronary artery disease): Plan: History CAD, silent [place] Initial troponin: 17. EKG sinus tachycardia without acute ST changes Denies CP, SOB Trend troponin Consider echo and cardiology consult if troponin increasing Continue aspirin (7) COPD (chronic obstructive pulmonary disease): Plan: On prn inhaler only No signs exacerbation, Monitor closely Continue albuterol prn (8) Diabetes mellitus, type II: Plan: A1c: 5.5 on 02/2022 Monitor BSG, diabetic diet Novolog correction only at this time (9) Anxiety: (10) Tobacco use: Plan: ssmoking cessation advised (11) CKD (chronic kidney disease), stage III: Plan: At baseline. Monitor renal functions, avoid nephrotoxic agents when possible Creatinine slightly up at 1.74 with BUN at 54 DVT Prophylaxis Heparin SQ Dispo-Pending Lives at home by herself, with caregivers daily PT OT evaluation Discussed with the [id number] and answered all of her questions Admission and Anticipated Discharge Date Admission Date: April 05, 2022 Subjective 04/11/2022 The patient was seen and examined in telemetry unit and in the COVID room She complains to extreme weakness and tiredness Denies any respiratory symptoms or any cough and/or shortness of breath No fever and or chills 04/12/2022 The patient was seen and examined in telemetry unit and in the COVID room She has had an episode of aspiration with desaturation early this morning Her saturation went down to 88% She has been stable during examination without any shortness of breath and her cough Her weakness has been improving Review of Systems Review of Systems: All systems reviewed and are unremarkable except as noted below Physical Exam Physical Exam: Lying in bed comfortably but looks very depressed Constitutional: + ill appearing and + thin Eyes: PERRL, conjunctivae normal, anicteric sclerae ENMT: external ear and nose normal, oropharynx normal Neck: trachea midline, no thyromegaly Respiratory: no respiratory distress Auscultation: lungs clear to auscultation bilaterally and + diminished lung sounds; no crackles Cardiovascular: Rate/Rhythm: regular rate, regular rhythm and + tachycardic Heart Sounds: normal S1 and normal S2; no murmur Extremities: + edema (Trace edema bilaterally) Gastrointestinal (Abdomen): Inspection/Auscultation: normal bowel sounds; abdomen not distended Percussion/Palpation: abdomen soft; abdomen nontender Musculoskeletal: No acute arthritis in any joint Neurologic: normal touch/pain/proprioception, moves all extremities and + confused (Pleasantly confused) Lymphatic: no cervical or axillary lymphadenopathy Results & Data Results & Data ([facility]) Vital Signs (Past 12 Hours) Vital Signs Temp Pulse Pulse Resp BP BP Pulse Ox 04/12/22 15:33 37.0 C 112 H 22 105/71 91 04/12/22 11:23 37.1 C 106 H 20 119/68 94 04/12/22 10:46 94 04/12/22 10:46 84 L 04/12/22 08:00 97 H 04/12/22 08:00 04/12/22 07:54 116 H 21 116/76 116/76 90 04/12/22 03:59 37.0 C 101 H 18 145/85 H 96 O2 Del Method O2 Flow Rate 04/12/22 15:33 Room Air 04/12/22 11:23 Nasal Cannula 2 04/12/22 10:46 Nasal Cannula 2 04/12/22 10:46 Room Air 04/12/22 08:00 04/12/22 08:00 Room Air 04/12/22 07:54 Room Air 04/12/22 03:59 Nasal Cannula Laboratory Results Short CBC 04/12/22 Range/Units 08:04 WBC 13.41 H (4.8-10.8) K/ul Hgb 13.6 (12.0-16.0) g/dl Hct 41.9 (34.1-44.9) % Plt Count 410 H (130-400) K/uL BMP 04/12/22 08:04 Sodium 143 Potassium 3.5 Chloride 105 Carbon Dioxide 20 L BUN 54 H Creatinine 1.74 H D Glucose 126 H Calcium 8.9 Liver Function 04/12/22 Range/Units 08:04 Total Bilirubin 0.4 (0.2-1.0) mg/dl AST 27 (13-39) U/L ALT 9 (7-52) U/L Alkaline Phosphatase 63 (34-104) U/L Albumin 3.3 L (3.4-5.0) gm/dl Medications Administered Current Inpatient Medications Acetaminophen (Acetaminophen 325 Mg Tab) 650 mg PO Q4H PRN PRN Reason: Pain or Fever Stop: 05/05/22 13:22 Last Admin: 04/09/22 08:15 Dose: 650 mg Albuterol (Albuterol Hfa 8 Gm Inhaler) 2 puffs INH Q6H PRN PRN Reason: Shortness Of Breath Stop: 05/05/22 13:22 Alprazolam (Alprazolam 0.5 Mg Tablet) 0.5 mg PO BID PRN PRN Reason: Anxiety Stop: 05/05/22 13:22 Aspirin (Aspirin 81 Mg Ectab) 81 mg PO QAM MO[facility] Stop: 05/06/22 08:59 Last Admin: 04/12/22 08:33 Dose: Not Given Buspirone HCl (Buspirone 5 Mg Tab) 10 mg PO BID MO[facility] Stop: 05/05/22 20:59 Last Admin: 04/12/22 08:32 Dose: Not Given Dextrose (Dextrose 50% 50 Ml Syringe) 25 - 50 ml IV UD PRN; Protocol PRN Reason: Hypoglycemia Protocol Stop: 05/05/22 13:22 Ferrous Sulfate (Ferrous Sulfate 325 Mg Tab) 325 mg PO BID [facility] Stop: 05/05/22 20:59 Last Admin: 04/12/22 08:33 Dose: Not Given Glucagon (Glucagon For Inj 1 Mg Vial) 1 mg SQ UD PRN; Protocol PRN Reason: Hypoglycemia Protocol Stop: 05/05/22 13:22 Glucose (Glucose 40% Gel 15 Gm Tube) 15 - 30 gm PO UD PRN; Protocol PRN Reason: Hypoglycemia Protocol Stop: 05/05/22 13:22 Glucose (Glucose 10 Tab/Tube) 4 - 8 tab PO UD PRN; Protocol PRN Reason: Hypoglycemia Treatment Stop: 05/05/22 13:22 Guaifenesin/Dextromethorphan (Guaifenesin/Dextrom Syrup 200mg/20mg 10ml Udc) 10 ml PO Q6H PRN PRN Reason: Cough Stop: 05/12/22 09:38 Heparin Sodium (Porcine) (Heparin Sod 5,000 Unit/0.5 Ml Vial) 5,000 units SQ Q8 [facility] Stop: 05/05/22 13:59 Last Admin: 04/12/22 13:28 Dose: 5,000 units Remdesivir 100 mg/ Sodium (Chloride) 250 mls @ 250 mls/hr IV DAILY@2000 [facility] Stop: 04/13/22 20:59 Last Infusion: 04/11/22 22:18 Dose: Infused Ampicillin Sodium 1,000 mg/ (Sodium Chloride) 50 mls @ 100 mls/hr IV Q12H [facility]; Protocol Stop: 04/17/22 10:59 Last Infusion: 04/12/22 12:18 Dose: Infused Insulin Aspart (Insulin Aspart Per Unit) 0 units SC ACHS [facility] Stop: 05/05/22 16:29 Last Admin: 04/12/22 10:52 Dose: Not Given Meclizine HCl (Meclizine 12.5 Mg Tab) 12.5 mg PO Q6H PRN PRN Reason: Dizziness or Vertigo Stop: 05/05/22 13:22 Mirtazapine (Mirtazapine Tab 15 Mg Tab) 22.5 mg PO HS [facility] Stop: 05/05/22 20:59 Last Admin: 04/11/22 21:20 Dose: 22.5 mg Miscellaneous (Carbohydrates For Hypoglycemia ) 15 - 30 gm PO UD PRN PRN Reason: Hypoglycemia Protocol Stop: 05/05/22 13:22 Last Admin: 04/09/22 17:05 Dose: 15 gm Multivitamins/Minerals (Cerovite Adv Formula Tab) 1 tab PO QAM [facility] Stop: 05/06/22 08:59 Last Admin: 04/12/22 08:34 Dose: Not Given Pantoprazole Sodium (Pantoprazole 40 Mg Tab) 40 mg PO BID [facility] Stop: 05/09/22 20:59 Last Admin: 04/12/22 08:34 Dose: Not Given Polyethylene Glycol (Polyethylene (Miralax) 17 Gm Pack) 17 gm PO DAILY PRN PRN Reason: Constipation Stop: 05/05/22 13:22 Trazodone HCl (Trazodone Hcl 50 Mg Tab) 25 mg PO [facility] Stop: 05/05/22 20:59 Last Admin: 04/07/22 21:05 Dose: 25 mg Vitamin D (Cholecalciferol 1,000 Units 25 Mcg Tab) [facility] Stop: 05/06/22 08:59 Last Admin: 04/12/22 08:33 Dose: Not Given
[2022-04-12] MEDS: dexAMETHasone 6 MG in SYRINGE 0 ML IV SCH (17:08)
[2022-04-12] MEDS: REMDESIVIR 100 MG in SODIUM CHLORIDE 0.9% 230 ML IV SCH (19:15)
[2022-04-12] MEDS: MIRTAZAPINE TAB 15 MG TAB PO SCH (22:21)
[2022-04-13] MEDS: HEPARIN SOD 5,000 UNIT/0.5 ML VIAL SQ SCH ×3 (06:15→22:46)
[2022-04-13 06:45] LABS: Basophils # (auto) 0.02 K/uL (0-0.2); Basophils % (auto) 0.2 %; Hematocrit (blood only) 41.8 % (34.1-44.9); Hemoglobin 13.4 g/dl (12.0-16.0); Immature Granulocytes # (auto) 0.13 K/uL (0.00-0.02); Immature Granulocytes % (auto) 1.3 %; Lymphocytes # (auto) 0.74 K/uL (1.2-3.4); Lymphocytes % (auto) 7.3 %; Mean Corpuscular Hemoglobin 29.7 pg (25.0-34.0); Mean Corpuscular Hgb Conc 32.1 g/dL (32.0-36.0); Mean Corpuscular Volume 92.7 fL (80.0-100.0); Monocytes # (auto) 0.31 K/uL (0.24-0.82); Monocytes % (auto) 3.1 %; Neutrophils # (auto) 8.96 K/uL (1.4-6.5); Neutrophils % (auto) 88.1 %; Platelet Count 392 K/uL (130-400); RDW Coefficient of Variation 13.6 % (11.5-14.5); RDW Standard Deviation 46.6 fL (36.4-46.3); Red Blood Count 4.51 M/uL (3.93-5.22); White Blood Count 10.16 K/ul (4.8-10.8)
[2022-04-13] MEDS: INSULIN ASPART PER UNIT SC SCH ×4 (06:52→20:04)
[2022-04-13 07:53] LABS: Albumin Globulin Ratio 0.9 (0.9-2); Albumin Level 3.2 gm/dl (3.4-5.0); BUN Creatinine Ratio 42.3 (10-20); Bilirubin,Total 0.3 mg/dl (0.2-1.0); Calcium 8.6 mg/dl (8.5-10.1); Creatinine Clr Calc Pharmacy 18.5 ml/min; Est GFR (African American) 28.1 ml/min; Est GFR (Non-African American) 24.3 ml/min; Globulin 3.7 gm/dl (2.5-4.0); Potassium 3.5 mmol/L (3.5-5.1); Total Protein 6.9 gm/dl (6.0-8.3)
[2022-04-13] MEDS: PANTOprazole 40 MG TAB PO SCH ×2 (07:58→20:02)
[2022-04-13] MEDS: busPIRone 5 MG TAB PO SCH ×2 (07:58→20:02)
[2022-04-13] MEDS: ASPIRIN 81 MG ECTAB PO SCH (07:58)
[2022-04-13] MEDS: FERROUS SULFATE 325 MG TAB PO SCH ×2 (07:58→20:02)
[2022-04-13] MEDS: CHOLECALCIFEROL 1,000 UNITS 25 MCG TAB PO SCH (07:58)
[2022-04-13] MEDS: CEROVITE ADV FORMULA TAB PO SCH (07:58)
[2022-04-13] MEDS: AMPICILLIN 1,000 MG in SODIUM CHLOR 0.9% AD-VAN 50 ML IV SCH ×2 (11:17→22:46)
[2022-04-13] MEDS: D5W AND NSS 1,000 ML IV SCH (12:58)
--- NOTE | 2022-04-13 15:31 | Hospitalist Progress Note ---
Date of Service April 13, 2022 Assessment & Plan (1) COVID-19: Plan: +COVID-19 PCR. CXR without infiltrate. CT of the chest showed bilateral lower lobe airspace opacities and trace bilateral effusion compatible with COVID-19 virus infection CRP is elevated at 8.08, Procalcitonin: 0.2, Lactate: 1.0 Airborne isolation precaution Remdesivir day # 4-Monitor LFTs and renal function Supplemental oxygen as needed Albuterol prn Denies any shortness of breath or cough at rest and has been saturating on room air Cumulative fluid balance is +2792-Will give a dose of Lasix today Has poor appetite, encouraged to drink boost Incentive spirometry, flutter valve, Mucinex twice daily Denies any shortness of breath and has been on 2 L of oxygen to maintain saturation. Saturation remains at 91% with room air CRP remains elevated at more than 9 We will start dexamethasone Clinically worse today and is requiring 2 L oxygen to maintain saturation Discussed with the family members specially [id number] and son and updated about her current condition Episode of aspiration N.p.o. for now We will get speech evaluation before restarting any food She failed swallowing evaluation terribly Will not start anything orally even liquid She will be given a small dose of intravenous fluid to maintain hydration Possible pneumonia/bacterial infiltration In ER given 1L NSS, Cefepime due to suspicion of pneumonia, zofran sputum culture: Normal marcela Blood cultures: Negative Urine culture: Growing probable Enterococcus Day 3 Cefepime IV Cefepime has been discontinued Started on intravenous ampicillin for Enterococcus UTI and further identification and sensitivity are pending No fever and or chills and white count is not elevated Heparin SC for DVT prophylaxis Melena FOBT negative Repeat hemoglobin stable likely from Iron supplement (2) BPPV (benign paroxysmal positional vertigo): Plan: Per Dr. Wick's notes with addendum: vertigo which has persisted for "one month" however her sense of time is off so this isn't actually known. orthostatics negative. No leukocytosis, UA unremarkable. +COVID-[address] head no acute changes. Likely peripheral vertigo 2/2 BPPV in setting of active infection PT eval for Gwendolyn maneuver--difficult to move her around 2/2 significant weakness. Pt reports that she showers herself at home but cannot even stand at side of bed Fall precautions Meclizine prn Neurology consult-appreciate input and recommendation Normal TSH, normal B12 (3) Memory loss: Plan: No known history of dementia per ANTOINE although sometimes patient appeared forgetful. She lives with 24/7 caregivers from [facility] and ANTOINE feels the confusion may be from here being in the hospital and that even though she is confused and weak, she would like her cared for at home. Pt also has a close friend in town who helps out. We discussed the possibility of dementia and the MRI findings, as well as the idea that ANTOINE should be accompanying her to all dr visits in order to understand what is actually going on (ANTOINE requested me to text her current medication list which was declined--can request formally through medical records). Trazodone held and would strongly consider discontinuation at discharge. Remains pleasantly confused No aggressiveness (4) Generalized weakness: Plan: Reported generalized weakness and fatigue past 2 days. History ambulatory dysfunction, uses walker at baseline. Possible from underlying COVID-19 infection Fall precautions PT/OT eval (5) Elevated troponin: Plan: nonspecific, trended down and clinical picture inconsistent with ACS. Initial positive may have been mild demand ischemia in setting of tachycardia and known h/o CAD. No evidence of ACS (6) CAD (coronary artery disease): Plan: History CAD, silent [place] Initial troponin: 17. EKG sinus tachycardia without acute ST changes Denies CP, SOB Trend troponin Consider echo and cardiology consult if troponin increasing Continue aspirin (7) COPD (chronic obstructive pulmonary disease): Plan: On prn inhaler only No signs exacerbation, Monitor closely Continue albuterol prn (8) Diabetes mellitus, type II: Plan: A1c: 5.5 on 02/2022 Monitor BSG, diabetic diet Novolog correction only at this time (9) Anxiety: (10) Tobacco use: Plan: ssmoking cessation advised (11) CKD (chronic kidney disease), stage III: Plan: At baseline. Monitor renal functions, avoid nephrotoxic agents when possible Creatinine slightly up at 1.74 with BUN at 54 DVT Prophylaxis Heparin SQ Dispo-Pending Lives at home by herself, with caregivers daily PT OT evaluation Discussed with the [id number]-agf and answered all of her questions Discussed with [id number] and went over the living well and advanced directive If the condition does not get any better most likely she will be DNR/DNI Admission and Anticipated Discharge Date Admission Date: April 05, 2022 Subjective 04/11/2022 The patient was seen and examined in telemetry unit and in the COVID room She complains to extreme weakness and tiredness Denies any respiratory symptoms or any cough and/or shortness of breath No fever and or chills 04/12/2022 The patient was seen and examined in telemetry unit and in the COVID room She has had an episode of aspiration with desaturation early this morning Her saturation went down to 88% She has been stable during examination without any shortness of breath and her cough Her weakness has been improving 04/13/2022 The patient was seen and examined in telemetry unit and in the COVID room She failed terribly the swallowing evaluation Her condition has deteriorated Denies any significant symptoms except profound weakness Review of Systems Review of Systems: All systems reviewed and are unremarkable except as noted below Physical Exam Physical Exam: Lying in bed comfortably but looks very depressed Constitutional: + ill appearing and + thin Eyes: PERRL, conjunctivae normal, anicteric sclerae ENMT: external ear and nose normal, oropharynx normal Neck: trachea midline, no thyromegaly Respiratory: no respiratory distress Auscultation: lungs clear to auscultation bilaterally and + diminished lung sounds; no crackles Cardiovascular: Rate/Rhythm: regular rate, regular rhythm and + tachycardic Heart Sounds: normal S1 and normal S2; no murmur Extremities: + edema (Trace edema bilaterally) Gastrointestinal (Abdomen): Inspection/Auscultation: normal bowel sounds; abdomen not distended Percussion/Palpation: abdomen soft; abdomen nontender Musculoskeletal: No acute arthritis involving any joint Neurologic: normal touch/pain/proprioception, moves all extremities and + confused (Pleasantly confused) Lymphatic: no cervical or axillary lymphadenopathy Results & Data Results & Data ([facility]) Vital Signs (Past 12 Hours) Vital Signs Temp Pulse Pulse Resp BP Pulse Ox O2 Del Method 04/13/22 08:15 78 04/13/22 08:15 Room Air, Nasal Cannula 04/13/22 06:39 36.5 C 102 H 22 129/88 92 Nasal Cannula 04/13/22 03:48 36.5 C 66 18 146/74 H 95 Nasal Cannula O2 Flow Rate 04/13/22 08:15 04/13/22 08:15 2 04/13/22 06:39 1 04/13/22 03:48 1 Laboratory Results Short CBC 04/13/22 Range/Units 05:41 WBC 10.16 (4.8-10.8) K/ul Hgb 13.4 (12.0-16.0) g/dl Hct 41.8 (34.1-44.9) % Plt Count 392 (130-400) K/uL BMP 04/13/22 05:41 Sodium 146 H Potassium 3.5 Chloride 109 H Carbon Dioxide 24 BUN 80 H D Creatinine 1.89 H Glucose 141 H Calcium 8.6 Liver Function 04/13/22 Range/Units 05:41 Total Bilirubin 0.3 (0.2-1.0) mg/dl AST 20 (13-39) U/L ALT 8 (7-52) U/L Alkaline Phosphatase 60 (34-104) U/L Albumin 3.2 L (3.4-5.0) gm/dl Medications Administered Current Inpatient Medications Acetaminophen (Acetaminophen 325 Mg Tab) 650 mg PO Q4H PRN PRN Reason: Pain or Fever Stop: 05/05/22 13:22 Last Admin: 04/09/22 08:15 Dose: 650 mg Albuterol (Albuterol Hfa 8 Gm Inhaler) 2 puffs INH Q6H PRN PRN Reason: Shortness Of Breath Stop: 05/05/22 13:22 Alprazolam (Alprazolam 0.5 Mg Tablet) 0.5 mg PO BID PRN PRN Reason: Anxiety Stop: 05/05/22 13:22 Aspirin (Aspirin 81 Mg Ectab) 81 mg PO QAM [facility] Stop: 05/06/22 08:59 Last Admin: 04/13/22 07:58 Dose: Not Given Buspirone HCl (Buspirone 5 Mg Tab) 10 mg PO BID [facility] Stop: 05/05/22 20:59 Last Admin: 04/13/22 07:58 Dose: Not Given Dextrose (Dextrose 50% 50 Ml Syringe) 25 - 50 ml IV UD PRN; Protocol PRN Reason: Hypoglycemia Protocol Stop: 05/05/22 13:22 Ferrous Sulfate (Ferrous Sulfate 325 Mg Tab) 325 mg PO BID [facility] Stop: 05/05/22 20:59 Last Admin: 04/13/22 07:58 Dose: Not Given Glucagon (Glucagon For Inj 1 Mg Vial) 1 mg SQ UD PRN; Protocol PRN Reason: Hypoglycemia Protocol Stop: 05/05/22 13:22 Glucose (Glucose 40% Gel 15 Gm Tube) 15 - 30 gm PO UD PRN; Protocol PRN Reason: Hypoglycemia Protocol Stop: 05/05/22 13:22 Glucose (Glucose 10 Tab/Tube) 4 - 8 tab PO UD PRN; Protocol PRN Reason: Hypoglycemia Treatment Stop: 05/05/22 13:22 Guaifenesin/Dextromethorphan (Guaifenesin/Dextrom Syrup 200mg/20mg 10ml Udc) 10 ml PO Q6H PRN PRN Reason: Cough Stop: 05/12/22 09:38 Heparin Sodium (Porcine) (Heparin Sod 5,000 Unit/0.5 Ml Vial) 5,000 units SQ Q8 [facility] Stop: 05/05/22 13:59 Last Admin: 04/13/22 13:20 Dose: 5,000 units Remdesivir 100 mg/ Sodium (Chloride) 250 mls @ 250 mls/hr IV DAILY@2000 [facility] Stop: 04/13/22 20:59 Last Infusion: 04/12/22 20:56 Dose: Infused Ampicillin Sodium 1,000 mg/ (Sodium Chloride) 50 mls @ 100 mls/hr IV Q12H [facility]; Protocol Stop: 04/17/22 10:59 Last Infusion: 04/13/22 11:51 Dose: Infused Dexamethasone 6 mg/ Syringe 1.5 mls @ 1 mls/min IV Q24H [facility] Stop: 05/12/22 15:59 Last Admin: 04/12/22 17:08 Dose: 1 mls/min Dextrose/Sodium Chloride (D5w And Nss) 1,000 mls @ 80 mls/hr IV .[id number] [facility] Stop: 04/15/22 01:59 Last Admin: 04/13/22 12:58 Dose: 80 mls/hr Insulin Aspart (Insulin Aspart Per Unit) 0 units SC ACHS [facility] Stop: 05/05/22 16:29 Last Admin: 04/13/22 12:02 Dose: Not Given Meclizine HCl (Meclizine 12.5 Mg Tab) 12.5 mg PO Q6H PRN PRN Reason: Dizziness or Vertigo Stop: 05/05/22 13:22 Mirtazapine (Mirtazapine Tab 15 Mg Tab) 22.5 mg PO HS [facility] Stop: 05/05/22 20:59 Last Admin: 04/12/22 22:21 Dose: Not Given Miscellaneous (Carbohydrates For Hypoglycemia ) 15 - 30 gm PO UD PRN PRN Reason: Hypoglycemia Protocol Stop: 05/05/22 13:22 Last Admin: 04/09/22 17:05 Dose: 15 gm Multivitamins/Minerals (Cerovite Adv Formula Tab) 1 tab PO QAM [facility] Stop: 05/06/22 08:59 Last Admin: 04/13/22 07:58 Dose: Not Given Pantoprazole Sodium (Pantoprazole 40 Mg Tab) 40 mg PO BID [facility] Stop: 05/09/22 20:59 Last Admin: 04/13/22 07:58 Dose: Not Given Polyethylene Glycol (Polyethylene (Miralax) 17 Gm Pack) 17 gm PO DAILY PRN PRN Reason: Constipation Stop: 05/05/22 13:22 Trazodone HCl (Trazodone Hcl 50 Mg Tab) 25 mg PO HS [facility] Stop: 05/05/22 20:59 Last Admin: 04/07/22 21:05 Dose: 25 mg Vitamin D (Cholecalciferol 1,000 Units 25 Mcg Tab) 2,000 units PO QAM [facility] Stop: 05/06/22 08:59 Last Admin: 04/13/22 07:58 Dose: Not Given
[2022-04-13] MEDS: dexAMETHasone 6 MG in SYRINGE 0 ML IV SCH (15:51)
[2022-04-13] MEDS: MIRTAZAPINE TAB 15 MG TAB PO SCH (20:02)
[2022-04-13] MEDS: REMDESIVIR 100 MG in SODIUM CHLORIDE 0.9% 230 ML IV SCH (20:31)
[2022-04-13] MEDS ORDERED: Nursing to Pharmacy Communication SCH (23:45)
[2022-04-14] MEDS: INSULIN ASPART PER UNIT SC SCH ×5 (00:20→23:43)
[2022-04-14] MEDS: D5W AND NSS 1,000 ML IV SCH (01:39)
[2022-04-14 06:41] LABS: Basophils # (auto) 0.02 K/uL (0-0.2); Basophils % (auto) 0.2 %; Hematocrit (blood only) 39.9 % (34.1-44.9); Hemoglobin 12.7 g/dl (12.0-16.0); Immature Granulocytes # (auto) 0.24 K/uL (0.00-0.02); Lymphocytes # (auto) 0.62 K/uL (1.2-3.4); Lymphocytes % (auto) 5.2 %; Mean Corpuscular Hgb Conc 31.8 g/dL (32.0-36.0); Mean Corpuscular Volume 94.1 fL (80.0-100.0); Monocytes % (auto) 4.2 %; Neutrophils # (auto) 10.49 K/uL (1.4-6.5); Neutrophils % (auto) 88.4 %; Platelet Count 398 K/uL (130-400); RDW Coefficient of Variation 13.7 % (11.5-14.5); RDW Standard Deviation 47.3 fL (36.4-46.3); Red Blood Count 4.24 M/uL (3.93-5.22); White Blood Count 11.87 K/ul (4.8-10.8)
[2022-04-14 07:12] LABS: Albumin Globulin Ratio 0.9 (0.9-2); Albumin Level 2.9 gm/dl (3.4-5.0); BUN Creatinine Ratio 44.9 (10-20); Bilirubin,Total 0.2 mg/dl (0.2-1.0); Calcium 8.3 mg/dl (8.5-10.1); Creatinine Clr Calc Pharmacy 21.3 ml/min; Est GFR (African American) 32.7 ml/min; Est GFR (Non-African American) 28.2 ml/min; Globulin 3.3 gm/dl (2.5-4.0); Magnesium 2.3 mg/dl (1.7-2.4); Phosphorus 2.5 mg/dl (2.5-4.9); Potassium 3.1 mmol/L (3.5-5.1); Total Protein 6.2 gm/dl (6.0-8.3)
[2022-04-14] MEDS: D5NSS + 20MEQ KCL 20 MEQ/1,000 ML BAG IV SCH ×2 (09:02→20:49)
[2022-04-14] MEDS: HEPARIN SOD 5,000 UNIT/0.5 ML VIAL SQ SCH ×3 (09:02→22:05)
[2022-04-14] MEDS: busPIRone 5 MG TAB PO SCH ×2 (09:05→20:01)
[2022-04-14] MEDS: ASPIRIN 81 MG ECTAB PO SCH (09:05)
[2022-04-14] MEDS: PANTOprazole 40 MG TAB PO SCH ×2 (09:05→20:01)
[2022-04-14] MEDS: CHOLECALCIFEROL 1,000 UNITS 25 MCG TAB PO SCH (09:05)
[2022-04-14] MEDS: FERROUS SULFATE 325 MG TAB PO SCH ×2 (09:05→20:01)
[2022-04-14] MEDS: CEROVITE ADV FORMULA TAB PO SCH (09:05)
[2022-04-14] MEDS ORDERED: LORazepam 0.25 MG in SYRINGE 0.125 ML IV PRN (09:30)
[2022-04-14] MEDS: AMPICILLIN 1,000 MG in SODIUM CHLOR 0.9% AD-VAN 50 ML IV SCH ×2 (10:59→22:05)
--- NOTE | 2022-04-14 14:17 | Hospitalist Progress Note ---
Date of Service April 14, 2022 Assessment & Plan (1) COVID-19: Plan: Has been+COVID-19 PCR. CXR without infiltrate. CT of the chest showed bilateral lower lobe airspace opacities and trace bilateral effusion compatible with COVID-19 virus infection CRP is elevated at 8.08, Procalcitonin: 0.2, Lactate: 1.0 Airborne isolation precaution Remdesivir day # 4-Monitor LFTs and renal function Supplemental oxygen as needed Albuterol prn Denies any shortness of breath or cough at rest and has been saturating on room air Cumulative fluid balance is +2792-Will give a dose of Lasix today Has poor appetite, encouraged to drink boost Incentive spirometry, flutter valve, Mucinex twice daily Denies any shortness of breath and has been on 2 L of oxygen to maintain saturation. Saturation remains at 91% with room air CRP remains elevated at more than 9 We will start dexamethasone Clinically worse today and is requiring 2 L oxygen to maintain saturation Discussed with the family members specially [id number]-peo and son and updated about her current condition Deteriorating clinically but remains hemodynamically stable with a stable blood counts and saturation We will discussed with the family members Episode of aspiration N.p.o. for now We will get speech evaluation before restarting any food She failed swallowing evaluation terribly Will not start anything orally even liquid She will be given a small dose of intravenous fluid to maintain hydration Failed speech reevaluation Possible pneumonia/bacterial infiltration In ER given 1L NSS, Cefepime due to suspicion of pneumonia, zofran sputum culture: Normal marcela Blood cultures: Negative Urine culture: Growing probable Enterococcus Day 3 Cefepime IV Cefepime has been discontinued Started on intravenous ampicillin for Enterococcus UTI and further identification and sensitivity are pending No fever and or chills and white count is not elevated We will continue with amoxicillin for now Heparin SC for DVT prophylaxis Melena FOBT negative Repeat hemoglobin stable likely from Iron supplement (2) BPPV (benign paroxysmal positional vertigo): Plan: Per Dr. Wick's notes with addendum: vertigo which has persisted for "one month" however her sense of time is off so this isn't actually known. orthostatics negative. No leukocytosis, UA unremarkable. +COVID-[address] head no acute changes. Likely peripheral vertigo 2/2 BPPV in setting of active infection PT eval for Gwendolyn maneuver--difficult to move her around 2/2 significant weakness. Pt reports that she showers herself at home but cannot even stand at side of bed Fall precautions Meclizine prn Neurology consult-appreciate input and recommendation Normal TSH, normal B12 (3) Memory loss: Plan: No known history of dementia per ANTOINE although sometimes patient appeared forgetful. She lives with 24/7 caregivers from [facility] and ANTOINE feels the confusion may be from here being in the hospital and that even though she is confused and weak, she would like her cared for at home. Pt also has a close friend in town who helps out. We discussed the possibility of dementia and the MRI findings, as well as the idea that ANTOINE should be accompanying her to all dr visits in order to understand what is actually going on (ANTOINE requested me to text her current medication list which was declined--can request formally through medical records). Trazodone held and would strongly consider discontinuation at discharge. Remains pleasantly confused No aggressiveness Pleasantly confused (4) Generalized weakness: Plan: Reported generalized weakness and fatigue past 2 days. History ambulatory dysfunction, uses walker at baseline. Possible from underlying COVID-19 infection Fall precautions PT/OT eval (5) Elevated troponin: Plan: nonspecific, trended down and clinical picture inconsistent with ACS. Initial positive may have been mild demand ischemia in setting of tachycardia and known h/o CAD. No evidence of ACS (6) CAD (coronary artery disease): Plan: History CAD, silent [place] Initial troponin: 17. EKG sinus tachycardia without acute ST changes Denies CP, SOB Trend troponin Consider echo and cardiology consult if troponin increasing Continue aspirin (7) COPD (chronic obstructive pulmonary disease): Plan: On prn inhaler only No signs exacerbation, Monitor closely Continue albuterol prn (8) Diabetes mellitus, type II: Plan: A1c: 5.5 on 02/2022 Monitor BSG, diabetic diet Novolog correction only at this time (9) Anxiety: (10) Tobacco use: Plan: ssmoking cessation advised (11) CKD (chronic kidney disease), stage III: Plan: At baseline. Monitor renal functions, avoid nephrotoxic agents when possible Creatinine slightly up at 1.74 with BUN at 54 DVT Prophylaxis Heparin SQ Dispo-Pending Lives at home by herself, with caregivers daily PT OT evaluation Discussed with the [id number] and answered all of her questions Discussed with [id number] and went over the living well and advanced directive If the condition does not get any better most likely she will be DNR/DNI Admission and Anticipated Discharge Date Admission Date: April 05, 2022 Subjective 04/11/2022 The patient was seen and examined in telemetry unit and in the COVID room She complains to extreme weakness and tiredness Denies any respiratory symptoms or any cough and/or shortness of breath No fever and or chills 04/12/2022 The patient was seen and examined in telemetry unit and in the COVID room She has had an episode of aspiration with desaturation early this morning Her saturation went down to 88% She has been stable during examination without any shortness of breath and her cough Her weakness has been improving 04/13/2022 The patient was seen and examined in telemetry unit and in the COVID room She failed terribly the swallowing evaluation Her condition has deteriorated Denies any significant symptoms except profound weakness 04/14/2022 The patient was seen and examined in telemetry unit and in the COVID room She has been deteriorating Remains hemodynamically stable with 98% saturation on 2 L Complains to have extreme weakness but denies any other significant symptoms Review of Systems Review of Systems: Unobtainable due to cognitive status Physical Exam Physical Exam: Lying in bed comfortably but looks very lethargic and pleasantly confused Constitutional: + ill appearing and + thin Eyes: PERRL, conjunctivae normal, anicteric sclerae ENMT: external ear and nose normal, oropharynx normal Neck: trachea midline, no thyromegaly Respiratory: no respiratory distress Auscultation: lungs clear to auscultation bilaterally and + diminished lung sounds; no crackles Cardiovascular: Rate/Rhythm: regular rate, regular rhythm and + tachycardic Heart Sounds: normal S1 and normal S2; no murmur Extremities: + edema (Trace edema bilaterally) Gastrointestinal (Abdomen): Inspection/Auscultation: normal bowel sounds; abdomen not distended Percussion/Palpation: abdomen soft; abdomen nontender Musculoskeletal: No acute arthritis in any joint Neurologic: normal touch/pain/proprioception, moves all extremities and + confused (Pleasantly confused) Lymphatic: no cervical or axillary lymphadenopathy Results & Data Results & Data ([facility]) Vital Signs (Past 12 Hours) Vital Signs Temp Pulse Pulse Resp BP Pulse Ox O2 Del Method 04/14/22 11:05 36.9 C 71 20 162/75 H 98 Nasal Cannula 04/14/22 08:50 Nasal Cannula 04/14/22 05:53 85 04/14/22 07:57 36.4 C L 67 22 148/86 H 98 Nasal Cannula 04/14/22 03:39 36.5 C 67 20 155/88 H 99 Nasal Cannula O2 Flow Rate 04/14/22 11:05 2 04/14/22 08:50 2 04/14/22 05:53 04/14/22 07:57 2.0 04/14/22 03:39 4.0 Laboratory Results Short CBC 04/14/22 Range/Units 06:09 WBC 11.87 H (4.8-10.8) K/ul Hgb 12.7 (12.0-16.0) g/dl Hct 39.9 (34.1-44.9) % Plt Count 398 (130-400) K/uL BMP 04/14/22 06:09 Sodium 151 H Potassium 3.1 L Chloride 119 H Carbon Dioxide 23 BUN 75 H Creatinine 1.67 H Glucose 223 H Calcium 8.3 L Liver Function 04/14/22 Range/Units 06:09 Total Bilirubin 0.2 (0.2-1.0) mg/dl AST 14 (13-39) U/L ALT 9 (7-52) U/L Alkaline Phosphatase 57 (34-104) U/L Albumin 2.9 L (3.4-5.0) gm/dl Medications Administered Current Inpatient Medications Acetaminophen (Acetaminophen 325 Mg Tab) 650 mg PO Q4H PRN PRN Reason: Pain or Fever Stop: 05/05/22 13:22 Last Admin: 04/09/22 08:15 Dose: 650 mg Albuterol (Albuterol Hfa 8 Gm Inhaler) 2 puffs INH Q6H PRN PRN Reason: Shortness Of Breath Stop: 05/05/22 13:22 Alprazolam (Alprazolam 0.5 Mg Tablet) 0.5 mg PO BID PRN PRN Reason: Anxiety Stop: 05/05/22 13:22 Aspirin (Aspirin 81 Mg Ectab) [facility] Stop: 05/06/22 08:59 Last Admin: 04/14/22 09:05 Dose: Not Given Buspirone HCl (Buspirone 5 Mg Tab) 10 mg PO BID [facility] Stop: 05/05/22 20:59 Last Admin: 04/14/22 09:05 Dose: Not Given Dextrose (Dextrose 50% 50 Ml Syringe) 25 - 50 ml IV UD PRN; Protocol PRN Reason: Hypoglycemia Protocol Stop: 05/05/22 13:22 Ferrous Sulfate (Ferrous Sulfate 325 Mg Tab) 325 mg PO BID [facility] Stop: 05/05/22 20:59 Last Admin: 04/14/22 09:05 Dose: Not Given Glucagon (Glucagon For Inj 1 Mg Vial) 1 mg SQ UD PRN; Protocol PRN Reason: Hypoglycemia Protocol Stop: 05/05/22 13:22 Glucose (Glucose 40% Gel 15 Gm Tube) 15 - 30 gm PO UD PRN; Protocol PRN Reason: Hypoglycemia Protocol Stop: 05/05/22 13:22 Glucose (Glucose 10 Tab/Tube) 4 - 8 tab PO UD PRN; Protocol PRN Reason: Hypoglycemia Treatment Stop: 05/05/22 13:22 Guaifenesin/Dextromethorphan (Guaifenesin/Dextrom Syrup 200mg/20mg 10ml Udc) 10 ml PO Q6H PRN PRN Reason: Cough Stop: 05/12/22 09:38 Heparin Sodium (Porcine) (Heparin Sod 5,000 Unit/0.5 Ml Vial) 5,000 units SQ Q8 [facility] Stop: 05/05/22 13:59 Last Admin: 04/14/22 13:01 Dose: 5,000 units Ampicillin Sodium 1,000 mg/ (Sodium Chloride) 50 mls @ 100 mls/hr IV Q12H [facility]; Protocol Stop: 04/17/22 10:59 Last Infusion: 04/14/22 11:30 Dose: Infused Dexamethasone 6 mg/ Syringe 1.5 mls @ 1 mls/min IV Q24H [facility] Stop: 05/12/22 15:59 Last Admin: 04/13/22 15:51 Dose: 1 mls/min Potassium Chloride/Dextrose/Sod Cl (D5nss + 20meq Kcl) 20 meq in 1,000 mls @ 80 mls/hr IV .[id number] [facility]; Protocol Stop: 05/14/22 07:59 Last Admin: 04/14/22 09:02 Dose: 80 mls/hr Lorazepam 0.25 mg/ Syringe 0.25 mls @ 2 mls/min IV Q6H PRN PRN Reason: Anxiety/Agitation Stop: 05/14/22 09:29 Last Admin: 04/14/22 11:02 Dose: 2 mls/min Insulin Aspart (Insulin Aspart Per Unit) 0 units SC Q6 [facility] Stop: 05/14/22 00:00 Last Admin: 04/14/22 12:49 Dose: 1 units Meclizine HCl (Meclizine 12.5 Mg Tab) 12.5 mg PO Q6H PRN PRN Reason: Dizziness or Vertigo Stop: 05/05/22 13:22 Mirtazapine (Mirtazapine Tab 15 Mg Tab) 22.5 mg PO HS [facility] Stop: 05/05/22 20:59 Last Admin: 04/13/22 20:02 Dose: Not Given Miscellaneous (Carbohydrates For Hypoglycemia ) 15 - 30 gm PO UD PRN PRN Reason: Hypoglycemia Protocol Stop: 05/05/22 13:22 Last Admin: 04/09/22 17:05 Dose: 15 gm Multivitamins/Minerals (Cerovite Adv Formula Tab) 1 tab PO QAM [facility] Stop: 05/06/22 08:59 Last Admin: 04/14/22 09:05 Dose: Not Given Pantoprazole Sodium (Pantoprazole 40 Mg Tab) 40 mg PO BID [facility] Stop: 05/09/22 20:59 Last Admin: 04/14/22 09:05 Dose: Not Given Polyethylene Glycol (Polyethylene (Miralax) 17 Gm Pack) 17 gm PO DAILY PRN PRN Reason: Constipation Stop: 05/05/22 13:22 Trazodone HCl (Trazodone Hcl 50 Mg Tab) 25 mg PO HS [facility] Stop: 05/05/22 20:59 Last Admin: 04/07/22 21:05 Dose: 25 mg Vitamin D (Cholecalciferol 1,000 Units 25 Mcg Tab) 2,000 units PO QAM [facility] Stop: 05/06/22 08:59 Last Admin: 04/14/22 09:05 Dose: Not Given
[2022-04-14] MEDS: dexAMETHasone 6 MG in SYRINGE 0 ML IV SCH (17:08)
[2022-04-14] MEDS: MIRTAZAPINE TAB 15 MG TAB PO SCH (20:01)
[2022-04-15] MEDS: HEPARIN SOD 5,000 UNIT/0.5 ML VIAL SQ SCH ×3 (06:11→21:47)
[2022-04-15] MEDS: INSULIN ASPART PER UNIT SC SCH ×4 (06:19→23:27)
[2022-04-15 06:39] LABS: Basophils # (auto) 0.02 K/uL (0-0.2); Basophils % (auto) 0.2 %; Hematocrit (blood only) 43.8 % (34.1-44.9); Hemoglobin 13.5 g/dl (12.0-16.0); Immature Granulocytes # (auto) 0.36 K/uL (0.00-0.02); Immature Granulocytes % (auto) 2.9 %; Lymphocytes # (auto) 0.77 K/uL (1.2-3.4); Lymphocytes % (auto) 6.2 %; Mean Corpuscular Hemoglobin 29.7 pg (25.0-34.0); Mean Corpuscular Hgb Conc 30.8 g/dL (32.0-36.0); Mean Corpuscular Volume 96.3 fL (80.0-100.0); Monocytes # (auto) 0.49 K/uL (0.24-0.82); Monocytes % (auto) 3.9 %; Neutrophils # (auto) 10.79 K/uL (1.4-6.5); Neutrophils % (auto) 86.8 %; Platelet Count 471 K/uL (130-400); RDW Coefficient of Variation 14.1 % (11.5-14.5); Red Blood Count 4.55 M/uL (3.93-5.22); White Blood Count 12.43 K/ul (4.8-10.8)
[2022-04-15 07:04] LABS: Albumin Globulin Ratio 0.9 (0.9-2); Albumin Level 3.1 gm/dl (3.4-5.0); Bilirubin,Total 0.3 mg/dl (0.2-1.0); Calcium 8.7 mg/dl (8.5-10.1); Creatinine Clr Calc Pharmacy 23.6 ml/min; Est GFR (African American) 37.2 ml/min; Est GFR (Non-African American) 32.1 ml/min; Globulin 3.5 gm/dl (2.5-4.0); Potassium 3.9 mmol/L (3.5-5.1); Total Protein 6.6 gm/dl (6.0-8.3)
[2022-04-15] MEDS: ASPIRIN 81 MG ECTAB PO SCH (07:43)
[2022-04-15] MEDS: FERROUS SULFATE 325 MG TAB PO SCH (07:44)
[2022-04-15] MEDS: PANTOprazole 40 MG TAB PO SCH (07:44)
[2022-04-15] MEDS: CEROVITE ADV FORMULA TAB PO SCH (07:44)
[2022-04-15] MEDS: busPIRone 5 MG TAB PO SCH (07:44)
[2022-04-15] MEDS: CHOLECALCIFEROL 1,000 UNITS 25 MCG TAB PO SCH (07:44)
[2022-04-15] MEDS: DEXTROSE 5% 1,000 ML IV SCH ×2 (08:27→20:44)
[2022-04-15] MEDS: AMPICILLIN 1,000 MG in SODIUM CHLOR 0.9% AD-VAN 50 ML IV SCH ×2 (12:17→21:46)
[2022-04-15] MEDS ORDERED: ACETAMINOPHEN 1000 MG/100 ML IV IV PRN (13:50)
[2022-04-15] MEDS ORDERED: LORazepam 0.5 MG in SYRINGE 0.125 ML IV PRN (13:51)
--- NOTE | 2022-04-15 14:09 | Hospitalist Progress Note ---
Date of Service April 15, 2022 Assessment & Plan (1) COVID-19: Plan: Has been+COVID-19 PCR. CXR without infiltrate. CT of the chest showed bilateral lower lobe airspace opacities and trace bilateral effusion compatible with COVID-19 virus infection CRP is elevated at 8.08, Procalcitonin: 0.2, Lactate: 1.0 Airborne isolation precaution Remdesivir day # 4-Monitor LFTs and renal function Supplemental oxygen as needed Albuterol prn Denies any shortness of breath or cough at rest and has been saturating on room air Cumulative fluid balance is +2792-Will give a dose of Lasix today Has poor appetite, encouraged to drink boost Incentive spirometry, flutter valve, Mucinex twice daily Denies any shortness of breath and has been on 2 L of oxygen to maintain saturation. Saturation remains at 91% with room air CRP remains elevated at more than 9 We will start dexamethasone She has been worsening and getting more shortness of breath with minimal movement Her heart rate is going down to 40s at times Her sodium level has gone up to 150s The case was discussed with the [id number] who advised that her rmpvdu-zd-trv should not suffer and be comfortable as for her wish She was made DNR/DNI from today Episode of aspiration N.p.o. for now We will get speech evaluation before restarting any food She failed swallowing evaluation terribly Will not start anything orally even liquid She will be given a small dose of intravenous fluid to maintain hydration Failed speech reevaluation Cannot eat or drink anything and getting minimal amount of fluid No artificial feeding and or fluid as per the living will Possible pneumonia/bacterial infiltration In ER given 1L NSS, Cefepime due to suspicion of pneumonia, zofran sputum culture: Normal marcela Blood cultures: Negative Urine culture: Growing probable Enterococcus Day 3 Cefepime IV Cefepime has been discontinued Started on intravenous ampicillin for Enterococcus UTI and further identification and sensitivity are pending No fever and or chills and white count is not elevated We will continue with amoxicillin for now If the condition deteriorates further we will stop all medicines and provide with supportive medicine for comfort care Heparin SC for DVT prophylaxis Melena FOBT negative Repeat hemoglobin stable likely from Iron supplement (2) BPPV (benign paroxysmal positional vertigo): Plan: Per Dr. Wick's notes with addendum: vertigo which has persisted for "one month" however her sense of time is off so this isn't actually known. orthostatics negative. No leukocytosis, UA unremarkable. +COVID-[address] head no acute changes. Likely peripheral vertigo 2/2 BPPV in setting of active infection PT eval for Gwendolyn maneuver--difficult to move her around 2/2 significant weakness. Pt reports that she showers herself at home but cannot even stand at side of bed Fall precautions Meclizine prn Neurology consult-appreciate input and recommendation Normal TSH, normal B12 (3) Memory loss: Plan: No known history of dementia per ANTOINE although sometimes patient appeared forgetful. She lives with 24/7 caregivers from [facility] and ANTOINE feels the confusion may be from here being in the hospital and that even though she is confused and weak, she would like her cared for at home. Pt also has a close friend in town who helps out. We discussed the possibility of dementia and the MRI findings, as well as the idea that ANTOINE should be accompanying her to all dr visits in order to understand what is actually going on (ANTOINE requested me to text her current medication list which was declined--can request formally through medical records). Trazodone held and would strongly consider discontinuation at discharge. Remains pleasantly confused No aggressiveness Pleasantly confused and getting agitated at times (4) Generalized weakness: Plan: Reported generalized weakness and fatigue past 2 days. History ambulatory dysfunction, uses walker at baseline. Possible from underlying COVID-19 infection Fall precautions PT/OT eval (5) Elevated troponin: Plan: nonspecific, trended down and clinical picture inconsistent with ACS. Initial positive may have been mild demand ischemia in setting of tachycardia and known h/o CAD. No evidence of ACS (6) CAD (coronary artery disease): Plan: History CAD, silent [place] Initial troponin: 17. EKG sinus tachycardia without acute ST changes Denies CP, SOB Trend troponin Consider echo and cardiology consult if troponin increasing Continue aspirin (7) COPD (chronic obstructive pulmonary disease): Plan: On prn inhaler only No signs exacerbation, Monitor closely Continue albuterol prn (8) Diabetes mellitus, type II: Plan: A1c: 5.5 on 02/2022 Monitor BSG, diabetic diet Novolog correction only at this time (9) Anxiety: (10) Tobacco use: Plan: ssmoking cessation advised (11) CKD (chronic kidney disease), stage III: Plan: At baseline. Monitor renal functions, avoid nephrotoxic agents when possible Creatinine slightly up at 1.74 with BUN at 54 DVT Prophylaxis Heparin SQ Dispo-Pending Lives at home by herself, with caregivers daily PT OT evaluation Discussed with the [id number]-[id number] and answered all of her questions Discussed with mzbopwto-ff-dsd and went over the living well and advanced directive If the condition does not get any better most likely she will be DNR/DNI Admission and Anticipated Discharge Date Admission Date: April 05, 2022 Subjective 04/11/2022 The patient was seen and examined in telemetry unit and in the COVID room She complains to extreme weakness and tiredness Denies any respiratory symptoms or any cough and/or shortness of breath No fever and or chills 04/12/2022 The patient was seen and examined in telemetry unit and in the COVID room She has had an episode of aspiration with desaturation early this morning Her saturation went down to 88% She has been stable during examination without any shortness of breath and her cough Her weakness has been improving 04/13/2022 The patient was seen and examined in telemetry unit and in the COVID room She failed terribly the swallowing evaluation Her condition has deteriorated Denies any significant symptoms except profound weakness 04/14/2022 The patient was seen and examined in telemetry unit and in the COVID room She has been deteriorating Remains hemodynamically stable with 98% saturation on 2 L Complains to have extreme weakness but denies any other significant symptoms 04/15/2022 The patient was seen and examined in telemetry unit and in the COVID room She has been deteriorating and becoming very agitated and irritative Her heart rate has been going down as low as 40s And she is not making out much urine This is discussed with the koarhjij-ai-jur and the patient was made DNR and likely to be comfort care down the line Review of Systems Review of Systems: Unobtainable due to cognitive status Physical Exam Physical Exam: Lying in bed comfortably but looks very lethargic and pleasantly confused and irritative Constitutional: + ill appearing and + thin Eyes: PERRL, conjunctivae normal, anicteric sclerae ENMT: external ear and nose normal, oropharynx normal Neck: trachea midline, no thyromegaly Respiratory: no respiratory distress Auscultation: lungs clear to auscultation bilaterally and + diminished lung sounds; no crackles Cardiovascular: Rate/Rhythm: regular rate, regular rhythm and + tachycardic Heart Sounds: normal S1 and normal S2; no murmur Extremities: + edema (Trace edema bilaterally) Gastrointestinal (Abdomen): Inspection/Auscultation: normal bowel sounds; abdomen not distended Percussion/Palpation: abdomen soft; abdomen nontender Musculoskeletal: No acute arthritis in any joint Neurologic: normal touch/pain/proprioception, moves all extremities and + confused (Pleasantly confused) Lymphatic: no cervical or axillary lymphadenopathy Results & Data Results & Data ([facility]) Vital Signs (Past 12 Hours) Vital Signs Temp Pulse Pulse Resp BP BP Pulse Ox 04/15/22 12:01 36.4 C L 69 20 148/73 H 99 04/15/22 06:36 54 L 04/15/22 07:40 04/15/22 07:44 36.7 C 68 20 157/72 H 97 04/15/22 03:40 36.6 C 69 17 142/76 H 98 O2 Del Method O2 Flow Rate 04/15/22 12:01 Nasal Cannula 2 04/15/22 06:36 04/15/22 07:40 Nasal Cannula 2 04/15/22 07:44 Nasal Cannula 2 04/15/22 03:40 Nasal Cannula 2 Laboratory Results Short CBC 04/15/22 Range/Units 06:25 WBC 12.43 H (4.8-10.8) K/ul Hgb 13.5 (12.0-16.0) g/dl Hct 43.8 (34.1-44.9) % Plt Count 471 H (130-400) K/uL BMP 04/15/22 06:25 Sodium 157 H* Potassium 3.9 D Chloride 127 H Carbon Dioxide 24 BUN 60 H Creatinine 1.50 H Glucose 242 H Calcium 8.7 Liver Function 04/15/22 Range/Units 06:25 Total Bilirubin 0.3 (0.2-1.0) mg/dl AST 12 L (13-39) U/L ALT 9 (7-52) U/L Alkaline Phosphatase 59 (34-104) U/L Albumin 3.1 L (3.4-5.0) gm/dl Medications Administered Current Inpatient Medications Acetaminophen (Acetaminophen 1000 Mg/100 Ml Iv) 1,000 mg IV Q8H PRN PRN Reason: Pain or Fever Stop: 04/18/22 13:49 Albuterol (Albuterol Hfa 8 Gm Inhaler) 2 puffs INH Q6H PRN PRN Reason: Shortness Of Breath Stop: 05/05/22 13:22 Dextrose (Dextrose 50% 50 Ml Syringe) 25 - 50 ml IV UD PRN; Protocol PRN Reason: Hypoglycemia Protocol Stop: 05/05/22 13:22 Glucagon (Glucagon For Inj 1 Mg Vial) 1 mg SQ UD PRN; Protocol PRN Reason: Hypoglycemia Protocol Stop: 05/05/22 13:22 Glucose (Glucose 40% Gel 15 Gm Tube) 15 - 30 gm PO UD PRN; Protocol PRN Reason: Hypoglycemia Protocol Stop: 05/05/22 13:22 Glucose (Glucose 10 Tab/Tube) 4 - 8 tab PO UD PRN; Protocol PRN Reason: Hypoglycemia Treatment Stop: 05/05/22 13:22 Heparin Sodium (Porcine) (Heparin Sod 5,000 Unit/0.5 Ml Vial) 5,000 units SQ Q8 MO[facility] Stop: 05/05/22 13:59 Last Admin: 04/15/22 13:47 Dose: 5,000 units Ampicillin Sodium 1,000 mg/ (Sodium Chloride) 50 mls @ 100 mls/hr IV Q12H MOLLY; Protocol Stop: 04/17/22 10:59 Last Infusion: 04/15/22 12:53 Dose: Infused Dextrose (D5w) 1,000 mls @ 80 mls/hr IV .[id number] [facility] Stop: 04/16/22 21:14 Last Admin: 04/15/22 08:27 Dose: 80 mls/hr Lorazepam 0.5 mg/ Syringe 0.375 mls @ 2 mls/min IV Q6H PRN PRN Reason: Anxiety/Agitation Stop: 05/14/22 09:29 Insulin Aspart (Insulin Aspart Per Unit) 0 units SC Q6 [facility] Stop: 05/14/22 00:00 Last Admin: 04/15/22 12:11 Dose: Not Given Miscellaneous (Carbohydrates For Hypoglycemia ) 15 - 30 gm PO UD PRN PRN Reason: Hypoglycemia Protocol Stop: 05/05/22 13:22 Last Admin: 04/09/22 17:05 Dose: 15 gm Trazodone HCl (Trazodone Hcl 50 Mg Tab) 25 mg PO HS [facility] Stop: 05/05/22 20:59 Last Admin: 04/07/22 21:05 Dose: 25 mg Vitamin D (Cholecalciferol 1,000 Units 25 Mcg Tab) 2,000 units PO [facility] Stop: 05/06/22 08:59 Last Admin: 04/15/22 07:44 Dose: Not Given
[2022-04-16] MEDS: DEXTROSE 5% 1,000 ML IV SCH (06:12)
[2022-04-16] MEDS: HEPARIN SOD 5,000 UNIT/0.5 ML VIAL SQ SCH ×3 (06:12→21:34)
[2022-04-16] MEDS: INSULIN ASPART PER UNIT SC SCH ×4 (06:22→23:52)
[2022-04-16 06:59] LABS: Albumin Globulin Ratio 0.9 (0.9-2); Albumin Level 2.5 gm/dl (3.4-5.0); BUN Creatinine Ratio 41.7 (10-20); Bilirubin,Total 0.3 mg/dl (0.2-1.0); Creatinine Clr Calc Pharmacy 31.3 ml/min; Est GFR (African American) 48.7 ml/min; Est GFR (Non-African American) 42.1 ml/min; Globulin 2.9 gm/dl (2.5-4.0); Potassium 3.5 mmol/L (3.5-5.1); Total Protein 5.4 gm/dl (6.0-8.3)
[2022-04-16] MEDS: CHOLECALCIFEROL 1,000 UNITS 25 MCG TAB PO SCH (08:19)
[2022-04-16] MEDS: dexAMETHasone 6 MG in SYRINGE 0 ML IV SCH (08:20)
[2022-04-16] MEDS: AMPICILLIN 1,000 MG in SODIUM CHLOR 0.9% AD-VAN 50 ML IV SCH ×2 (12:14→22:11)
[2022-04-16] MEDS ORDERED: TPN/PPN CONSULT PHARMACY PRN (15:03)
--- NOTE | 2022-04-16 15:18 | Hospitalist Progress Note ---
Date of Service April 16, 2022 Assessment & Plan (1) COVID-19: Plan: Has been+COVID-19 PCR. CXR without infiltrate. CT of the chest showed bilateral lower lobe airspace opacities and trace bilateral effusion compatible with COVID-19 virus infection CRP is elevated at 8.08, Procalcitonin: 0.2, Lactate: 1.0 Airborne isolation precaution Remdesivir day # 4-Monitor LFTs and renal function Supplemental oxygen as needed Albuterol prn Denies any shortness of breath or cough at rest and has been saturating on room air Cumulative fluid balance is +2792-Will give a dose of Lasix today Has poor appetite, encouraged to drink boost Incentive spirometry, flutter valve, Mucinex twice daily Denies any shortness of breath and has been on 2 L of oxygen to maintain saturation. Saturation remains at 91% with room air CRP remains elevated at more than 9 We will start dexamethasone She has been worsening and getting more shortness of breath with minimal movement Her heart rate is going down to 40s at times Her sodium level has gone up to 150s The case was discussed with the [id number] who advised that her zkdghv-na-udv should not suffer and be comfortable as for her wish She was made DNR/DNI from 04/15/2022 She has been much better today and making reasonable conversation-discussed about resuscitation with her in detail today and she clearly mentioned not to resuscitate in case of cardiopulmonary arrest She is on 11-day of COVID 19 virus infection We will take her out of isolation from tomorrow Episode of aspiration N.p.o. for now We will get speech evaluation before restarting any food She failed swallowing evaluation terribly Will not start anything orally even liquid She will be given a small dose of intravenous fluid to maintain hydration Failed speech reevaluation Cannot eat or drink anything and getting minimal amount of fluid No artificial feeding and or fluid as per the living will Discussed about nutrition and she was agreeable to have nutrition in some form as she was feeling better and wants to go home after improvement Due to no swallowing reflex-we will start with PPN for now as she is going to pull out NG feeding Further nutritional status and the mechanism of giving nutrition will depend on improvement of her current condition Possible pneumonia/bacterial infiltration In ER given 1L NSS, Cefepime due to suspicion of pneumonia, zofran sputum culture: Normal marcela Blood cultures: Negative Urine culture: Growing probable Enterococcus Day 3 Cefepime IV Cefepime has been discontinued Started on intravenous ampicillin for Enterococcus UTI and further identification and sensitivity are pending No fever and or chills and white count is not elevated We will continue with amoxicillin for now Condition has been improving Heparin SC for DVT prophylaxis Melena FOBT negative Repeat hemoglobin stable likely from Iron supplement (2) BPPV (benign paroxysmal positional vertigo): Plan: Per Dr. Wick's notes with addendum: vertigo which has persisted for "one month" however her sense of time is off so this isn't actually known. orthostatics negative. No leukocytosis, UA unremarkable. +COVID-[address] head no acute changes. Likely peripheral vertigo 2/2 BPPV in setting of active infection PT eval for Gwendolyn maneuver--difficult to move her around 2/2 significant weakness. Pt reports that she showers herself at home but cannot even stand at side of bed Fall precautions Meclizine prn Neurology consult-appreciate input and recommendation Normal TSH, normal B12 (3) Memory loss: Plan: No known history of dementia per ANTOINE although sometimes patient appeared forgetful. She lives with 24/7 caregivers from [facility] and ANTOINE feels the confusion may be from here being in the hospital and that even though she is confused and weak, she would like her cared for at home. Pt also has a close friend in town who helps out. We discussed the possibility of dementia and the MRI findings, as well as the idea that ANTOINE should be accompanying her to all dr visits in order to understand what is actually going on (ANTOINE requested me to text her current medication list which was declined--can request formally through medical records). Trazodone held and would strongly consider discontinuation at discharge. Remains pleasantly confused No aggressiveness Pleasantly confused and getting agitated at times (4) Generalized weakness: Plan: Reported generalized weakness and fatigue past 2 days. History ambulatory dysfunction, uses walker at baseline. Possible from underlying COVID-19 infection Fall precautions PT/OT eval (5) Elevated troponin: Plan: nonspecific, trended down and clinical picture inconsistent with ACS. Initial positive may have been mild demand ischemia in setting of tachycardia and known h/o CAD. No evidence of ACS (6) CAD (coronary artery disease): Plan: History CAD, silent [place] Initial troponin: 17. EKG sinus tachycardia without acute ST changes Denies CP, SOB Trend troponin Consider echo and cardiology consult if troponin increasing Continue aspirin (7) COPD (chronic obstructive pulmonary disease): Plan: On prn inhaler only No signs exacerbation, Monitor closely Continue albuterol prn (8) Diabetes mellitus, type II: Plan: A1c: 5.5 on 02/2022 Monitor BSG, diabetic diet Novolog correction only at this time (9) Anxiety: (10) Tobacco use: Plan: ssmoking cessation advised (11) CKD (chronic kidney disease), stage III: Plan: At baseline. Monitor renal functions, avoid nephrotoxic agents when possible Creatinine slightly up at 1.74 with BUN at 54 DVT Prophylaxis Heparin SQ Dispo-Pending Lives at home by herself, with caregivers daily PT OT evaluation Discussed with the pelnml-er-ddw and answered all of her questions Discussed with [id number] and went over the living well and advanced directive Seems to be no more confusion and the patient was able to give her consent about resuscitation which remains DNR/DNI Admission and Anticipated Discharge Date Admission Date: April 05, 2022 Subjective 04/11/2022 The patient was seen and examined in telemetry unit and in the COVID room She complains to extreme weakness and tiredness Denies any respiratory symptoms or any cough and/or shortness of breath No fever and or chills 04/12/2022 The patient was seen and examined in telemetry unit and in the COVID room She has had an episode of aspiration with desaturation early this morning Her saturation went down to 88% She has been stable during examination without any shortness of breath and her cough Her weakness has been improving 04/13/2022 The patient was seen and examined in telemetry unit and in the COVID room She failed terribly the swallowing evaluation Her condition has deteriorated Denies any significant symptoms except profound weakness 04/14/2022 The patient was seen and examined in telemetry unit and in the COVID room She has been deteriorating Remains hemodynamically stable with 98% saturation on 2 L Complains to have extreme weakness but denies any other significant symptoms 04/15/2022 The patient was seen and examined in telemetry unit and in the COVID room She has been deteriorating and becoming very agitated and irritative Her heart rate has been going down as low as 40s And she is not making out much urine This is discussed with the [id number]-fl-scd and the patient was made DNR and likely to be comfort care down the line 04/16/2022 The patient was seen and examined in telemetry unit and in COVID room She has been having lots of oral secretions secondary to inability to swallow or spit it out She has been much better today and has been communicating normally She denies any significant symptoms except ongoing weakness She mentioned that she wants to go home Review of Systems Review of Systems: All systems reviewed and are unremarkable except as noted below Physical Exam Physical Exam: Lying in bed comfortably but looks very lethargic and looks much better today and is communicative Constitutional: + ill appearing and + thin Eyes: PERRL, conjunctivae normal, anicteric sclerae ENMT: external ear and nose normal, oropharynx normal Neck: trachea midline, no thyromegaly Respiratory: no respiratory distress Auscultation: lungs clear to auscultation bilaterally and + diminished lung sounds; no crackles Cardiovascular: Rate/Rhythm: regular rate, regular rhythm and + tachycardic Heart Sounds: normal S1 and normal S2; no murmur Extremities: + edema (Trace edema bilaterally) Gastrointestinal (Abdomen): Inspection/Auscultation: normal bowel sounds; abdomen not distended Percussion/Palpation: abdomen soft; abdomen nontender Musculoskeletal: No acute arthritis in any joint Neurologic: normal touch/pain/proprioception, moves all extremities and + co nfused (Pleasantly confused) Lymphatic: no cervical or axillary lymphadenopathy Results & Data Results & Data ([facility]) Vital Signs (Past 12 Hours) Vital Signs Temp Pulse Pulse Resp BP BP Pulse Ox 04/16/22 10:46 36.3 C L 67 18 149/73 H 96 04/16/22 06:27 53 L 04/16/22 07:38 36.6 C 64 17 133/74 99 O2 Del Method O2 Flow Rate 04/16/22 10:46 Nasal Cannula 2 04/16/22 06:27 04/16/22 07:38 Nasal Cannula 2 Laboratory Results BMP 04/16/22 06:09 Sodium 148 H D Potassium 3.5 Chloride 119 H Carbon Dioxide 24 BUN 50 H Creatinine 1.20 D Glucose 147 H Calcium 8.0 L Liver Function 04/16/22 Range/Units 06:09 Total Bilirubin 0.3 (0.2-1.0) mg/dl AST 12 L (13-39) U/L ALT 7 (7-52) U/L Alkaline Phosphatase 49 (34-104) U/L Albumin 2.5 L (3.4-5.0) gm/dl Medications Administered Current Inpatient Medications Acetaminophen (Acetaminophen 1000 Mg/100 Ml Iv) 1,000 mg IV Q8H PRN PRN Reason: Pain or Fever Stop: 04/18/22 13:49 Albuterol (Albuterol Hfa 8 Gm Inhaler) 2 puffs INH Q6H PRN PRN Reason: Shortness Of Breath Stop: 05/05/22 13:22 Dextrose (Dextrose 50% 50 Ml Syringe) 25 - 50 ml IV UD PRN; Protocol PRN Reason: Hypoglycemia Protocol Stop: 05/05/22 13:22 Glucagon (Glucagon For Inj 1 Mg Vial) 1 mg SQ UD PRN; Protocol PRN Reason: Hypoglycemia Protocol Stop: 05/05/22 13:22 Glucose (Glucose 40% Gel 15 Gm Tube) 15 - 30 gm PO UD PRN; Protocol PRN Reason: Hypoglycemia Protocol Stop: 05/05/22 13:22 Glucose (Glucose 10 Tab/Tube) 4 - 8 tab PO UD PRN; Protocol PRN Reason: Hypoglycemia Treatment Stop: 05/05/22 13:22 Heparin Sodium (Porcine) (Heparin Sod 5,000 Unit/0.5 Ml Vial) 5,000 units SQ Q8 [facility] Stop: 05/05/22 13:59 Last Admin: 04/16/22 13:44 Dose: 5,000 units Ampicillin Sodium 1,000 mg/ (Sodium Chloride) 50 mls @ 100 mls/hr IV Q12H [facility]; Protocol Stop: 04/17/22 10:59 Last Infusion: 04/16/22 12:44 Dose: Infused Lorazepam 0.5 mg/ Syringe 0.375 mls @ 2 mls/min IV Q6H PRN PRN Reason: Anxiety/Agitation Stop: 05/14/22 09:29 Dexamethasone 6 mg/ Syringe 1.5 mls @ 1 mls/min IV Q24H [facility] Stop: 05/16/22 08:59 Last Admin: 04/16/22 08:20 Dose: 1 mls/min Dextrose (D10w) 1,000 mls @ 0 mls/hr IV .Q0M PRN PRN Reason: protocol (see label comments) Stop: 05/17/22 15:59 Insulin Aspart (Insulin Aspart Per Unit) 0 units SC Q6 [facility] Stop: 05/14/22 00:00 Last Admin: 04/16/22 12:25 Dose: Not Given Miscellaneous (Carbohydrates For Hypoglycemia ) 15 - 30 gm PO UD PRN PRN Reason: Hypoglycemia Protocol Stop: 05/05/22 13:22 Last Admin: 04/09/22 17:05 Dose: 15 gm Miscellaneous (Check Scopolamine Patch Placement) 1 each N/A QS MOLLY Stop: 05/16/22 15:59 Miscellaneous (Check Scopolamine Patch Placement) 1 each N/A Q72H [facility] Stop: 05/16/22 14:14 Miscellaneous Information (Tpn/Ppn Consult Pharmacy) 1 each N/A UD PRN PRN Reason: Consult Stop: 05/16/22 15:02 Scopolamine (Scopolamine 1 Mg Tdsy) 1 mg TD Q72H MO[facility] Stop: 05/16/22 14:14 Trazodone HCl (Trazodone Hcl 50 Mg Tab) 25 mg PO HS [facility] Stop: 05/05/22 20:59 Last Admin: 04/07/22 21:05 Dose: 25 mg Vitamin D (Cholecalciferol 1,000 Units 25 Mcg Tab) 2,000 units PO QAM [facility] Stop: 05/06/22 08:59 Last Admin: 04/16/22 08:19 Dose: Not Given
[2022-04-16] MEDS ORDERED: TPN/PPN CONSULT PHARMACY STA (15:20)
[2022-04-16] MEDS: SCOPOLAMINE 1 MG TDSY TD SCH (15:34)
[2022-04-16] MEDS: CHECK SCOPOLAMINE PATCH PLACEMENT SCH ×3 (15:35→23:48)
[2022-04-16] MEDS: D5W AND 1/2NSS 1,000 ML IV SCH (16:36)
[2022-04-17] MEDS: D5W AND 1/2NSS 1,000 ML IV SCH (04:19)
[2022-04-17] MEDS: HEPARIN SOD 5,000 UNIT/0.5 ML VIAL SQ SCH ×3 (06:13→21:20)
[2022-04-17] MEDS: INSULIN ASPART PER UNIT SC SCH ×4 (06:14→23:38)
--- NOTE | 2022-04-17 06:22 | Electrocardiogram Report ---
Test Reason : Blood Pressure : / mmHG Vent. Rate : 068 BPM Atrial Rate : 068 BPM P-R Int : 154 ms QRS Dur : 074 ms QT Int : 400 ms P-R-T Axes : 011 009 018 degrees QTc Int : 425 ms Poor data quality, interpretation may be adversely affected Possible Sinus rhythm with Premature supraventricular complexes and with occasional Premature ventric ular complexes Nonspecific ST abnormality Abnormal ECG When compared with ECG of 06-APR-2022 04:49, Premature supraventricular complexes are now Present Confirmed by Thien Ryder ([id number]) on 04/17/2022 6:22:39 AM Referred By: Bandar Nieves Confirmed By:Thien Ryder
[2022-04-17] MEDS: CHOLECALCIFEROL 1,000 UNITS 25 MCG TAB PO SCH (07:33)
[2022-04-17] MEDS: CHECK SCOPOLAMINE PATCH PLACEMENT SCH ×3 (07:33→23:38)
[2022-04-17 07:50] LABS: Hematocrit (blood only) 40.3 % (34.1-44.9); Hemoglobin 12.8 g/dl (12.0-16.0); Mean Corpuscular Hemoglobin 29.9 pg (25.0-34.0); Mean Corpuscular Hgb Conc 31.8 g/dL (32.0-36.0); Mean Corpuscular Volume 94.2 fL (80.0-100.0); Mean Platelet Volume 9.9 fL (9.4-12.3); Platelet Count 375 K/uL (130-400); RDW Coefficient of Variation 13.5 % (11.5-14.5); RDW Standard Deviation 46.9 fL (36.4-46.3); Red Blood Count 4.28 M/uL (3.93-5.22); White Blood Count 11.45 K/ul (4.8-10.8)
[2022-04-17 08:10] LABS: Basophils # (auto) 0.06 K/uL (0-0.2); Basophils % (auto) 0.5 %; Immature Granulocytes # (auto) 0.61 K/uL (0.00-0.02); Immature Granulocytes % (auto) 5.3 %; Lymphocytes # (auto) 1.76 K/uL (1.2-3.4); Lymphocytes % (auto) 15.4 %; Monocytes # (auto) 0.73 K/uL (0.24-0.82); Monocytes % (auto) 6.4 %; Neutrophils # (auto) 8.29 K/uL (1.4-6.5); Neutrophils % (auto) 72.4 %
[2022-04-17 08:14] LABS: BUN Creatinine Ratio 35.2 (10-20); Creatinine Clr Calc Pharmacy 36.6 ml/min; Est GFR (African American) 57.3 ml/min; Est GFR (Non-African American) 49.4 ml/min; Magnesium 1.8 mg/dl (1.7-2.4); Phosphorus 2.3 mg/dl (2.5-4.9); Potassium 3.8 mmol/L (3.5-5.1)
[2022-04-17] MEDS: dexAMETHasone 6 MG in SYRINGE 0 ML IV SCH (09:13)
--- NOTE | 2022-04-17 13:45 | Hospitalist Progress Note ---
Date of Service April 17, 2022 Assessment & Plan (1) COVID-19: Plan: Has been+COVID-19 PCR. CXR without infiltrate. CT of the chest showed bilateral lower lobe airspace opacities and trace bilateral effusion compatible with COVID-19 virus infection CRP is elevated at 8.08, Procalcitonin: 0.2, Lactate: 1.0 Airborne isolation precaution Remdesivir day # 4-Monitor LFTs and renal function Supplemental oxygen as needed Albuterol prn Denies any shortness of breath or cough at rest and has been saturating on room air Cumulative fluid balance is +2792-Will give a dose of Lasix today Has poor appetite, encouraged to drink boost Incentive spirometry, flutter valve, Mucinex twice daily Denies any shortness of breath and has been on 2 L of oxygen to maintain saturation. Saturation remains at 91% with room air CRP remains elevated at more than 9 We will start dexamethasone She has been worsening and getting more shortness of breath with minimal movement Her heart rate is going down to 40s at times Her sodium level has gone up to 150s The case was discussed with the [id number] who advised that her [id number] should not suffer and be comfortable as for her wish She was made DNR/DNI from 04/15/2022 She has been much better today and making reasonable conversation-discussed about resuscitation with her in detail today and she clearly mentioned not to resuscitate in case of cardiopulmonary arrest She is on 11-day of COVID 19 virus infection Discussed with infection control and likely to wait for a few more days as the patient has cough with some phlegm Clinically better and does not require any more oxygen than 2 L since admission Episode of aspiration N.p.o. for now We will get speech evaluation before restarting any food She failed swallowing evaluation terribly Will not start anything orally even liquid She will be given a small dose of intravenous fluid to maintain hydration Failed speech reevaluation Cannot eat or drink anything and getting minimal amount of fluid No artificial feeding and or fluid as per the living will Discussed about nutrition and she was agreeable to have nutrition in some form as she was feeling better and wants to go home after improvement Due to no swallowing reflex-we will start with PPN for now as she is going to pull out NG feeding Further nutritional status and the mechanism of giving nutrition will depend on improvement of her current condition Starting on PPN for now and surprisingly patient's swallowing reflex came back Will get a barium swallow evaluation before starting any diet Possible pneumonia/bacterial infiltration In ER given 1L NSS, Cefepime due to suspicion of pneumonia, zofran sputum culture: Normal marcela Blood cultures: Negative Urine culture: Growing probable Enterococcus Day 3 Cefepime IV Cefepime has been discontinued Started on intravenous ampicillin for Enterococcus UTI and further identification and sensitivity are pending No fever and or chills and white count is not elevated We will continue with amoxicillin for now Condition has been improving Antibiotic course is finished Heparin SC for DVT prophylaxis Melena FOBT negative Repeat hemoglobin stable likely from Iron supplement (2) BPPV (benign paroxysmal positional vertigo): Plan: Per Dr. Wick's notes with addendum: vertigo which has persisted for "one month" however her sense of time is off so this isn't actually known. orthostatics negative. No leukocytosis, UA unremarkable. +COVID-[address] head no acute changes. Likely peripheral vertigo 2/2 BPPV in setting of active infection PT eval for Gwendolyn maneuver--difficult to move her around 2/2 significant weakness. Pt reports that she showers herself at home but cannot even stand at side of bed Fall precautions Meclizine prn Neurology consult-appreciate input and recommendation Normal TSH, normal B12 (3) Memory loss: Plan: No known history of dementia per ANTOINE although sometimes patient appeared forgetful. She lives with 24/7 caregivers from [facility] and ANTOINE feels the confusion may be from here being in the hospital and that even though she is confused and weak, she would like her cared for at home. Pt also has a close friend in town who helps out. We discussed the possibility of dementia and the MRI findings, as well as the idea that ANTOINE should be accompanying her to all dr visits in order to understand what is actually going on (ANTOINE requested me to text her current medication list which was declined--can request formally through medical records). Trazodone held and would strongly consider discontinuation at discharge. Remains pleasantly confused No aggressiveness Pleasantly confused and getting agitated at times (4) Generalized weakness: Plan: Reported generalized weakness and fatigue past 2 days. History ambulatory dysfunction, uses walker at baseline. Possible from underlying COVID-19 infection Fall precautions PT/OT eval (5) Elevated troponin: Plan: nonspecific, trended down and clinical picture inconsistent with ACS. Initial positive may have been mild demand ischemia in setting of tachycardia and known h/o CAD. No evidence of ACS (6) CAD (coronary artery disease): Plan: History CAD, silent ID Initial troponin: 17. EKG sinus tachycardia without acute ST changes Denies CP, SOB Trend troponin Consider echo and cardiology consult if troponin increasing Continue aspirin (7) COPD (chronic obstructive pulmonary disease): Plan: On prn inhaler only No signs exacerbation, Monitor closely Continue albuterol prn (8) Diabetes mellitus, type II: Plan: A1c: 5.5 on 02/2022 Monitor BSG, diabetic diet Novolog correction only at this time (9) Anxiety: (10) Tobacco use: Plan: ssmoking cessation advised (11) CKD (chronic kidney disease), stage III: Plan: At baseline. Monitor renal functions, avoid nephrotoxic agents when possible Creatinine slightly up at 1.74 with BUN at 54 DVT Prophylaxis Heparin SQ Dispo-Pending Lives at home by herself, with caregivers daily PT OT evaluation Discussed with the [id number] and answered all of her questions Discussed with [id number] and went over the living well and advanced directive Seems to be no more confusion and the patient was able to give her consent about resuscitation which remains DNR/DNI Admission and Anticipated Discharge Date Admission Date: April 05, 2022 Subjective 04/11/2022 The patient was seen and examined in telemetry unit and in the COVID room She complains to extreme weakness and tiredness Denies any respiratory symptoms or any cough and/or shortness of breath No fever and or chills 04/12/2022 The patient was seen and examined in telemetry unit and in the COVID room She has had an episode of aspiration with desaturation early this morning Her saturation went down to 88% She has been stable during examination without any shortness of breath and her cough Her weakness has been improving 04/13/2022 The patient was seen and examined in telemetry unit and in the COVID room She failed terribly the swallowing evaluation Her condition has deteriorated Denies any significant symptoms except profound weakness 04/14/2022 The patient was seen and examined in telemetry unit and in the COVID room She has been deteriorating Remains hemodynamically stable with 98% saturation on 2 L Complains to have extreme weakness but denies any other significant symptoms 04/15/2022 The patient was seen and examined in telemetry unit and in the COVID room She has been deteriorating and becoming very agitated and irritative Her heart rate has been going down as low as 40s And she is not making out much urine This is discussed with the [id number] and the patient was made DNR and likely to be comfort care down the line 04/16/2022 The patient was seen and examined in telemetry unit and in COVID room She has been having lots of oral secretions secondary to inability to swallow or spit it out She has been much better today and has been communicating normally She denies any significant symptoms except ongoing weakness She mentioned that she wants to go home 04/17/2022 The patient was seen and examined in telemetry unit and in the COVID room She has been feeling much better and is able to drink without any significant aspiration She will have barium swallow tomorrow Has minimal cough without any phlegm and does not have any shortness of breath at rest Review of Systems Review of Systems: All systems reviewed and are unremarkable except as noted below Physical Exam Physical Exam: Lying in bed comfortably but looks very lethargic and looks much better today and is communicative Constitutional: + ill appearing and + thin Eyes: PERRL, conjunctivae normal, anicteric sclerae ENMT: external ear and nose normal, oropharynx normal Neck: trachea midline, no thyromegaly Respiratory: no respiratory distress Auscultation: + diminished lung sounds and + crackles (Minimal crackles at the bases) Cardiovascular: Rate/Rhythm: regular rate, regular rhythm and + tachycardic Heart Sounds: normal S1 and normal S2; no murmur Extremities: + edema (Trace edema bilaterally) Gastrointestinal (Abdomen): Inspection/Auscultation: normal bowel sounds; abdomen not distended Percussion/Palpation: abdomen soft; abdomen nontender Musculoskeletal: No acute arthritis in any joint Neurologic: normal touch/pain/proprioception, moves all extremities and + confused (Pleasantly confused) Lymphatic: no cervical or axillary lymphadenopathy Results & Data Results & Data ([facility]) Vital Signs (Past 12 Hours) Vital Signs Temp Pulse Pulse Resp BP Pulse Ox O2 Del Method 04/17/22 11:55 37.0 C 54 L 113/70 95 Nasal Cannula 04/17/22 08:30 Nasal Cannula 04/17/22 06:15 58 L 04/17/22 07:30 36.6 C 67 148/85 H 100 Nasal Cannula 04/17/22 03:16 36.8 C 55 L 16 117/78 100 Nasal Cannula O2 Flow Rate 04/17/22 11:55 2 04/17/22 08:30 2 04/17/22 06:15 04/17/22 07:30 2 04/17/22 03:16 2 Laboratory Results Short CBC 04/17/22 Range/Units 06:45 WBC 11.45 H (4.8-10.8) K/ul Hgb 12.8 (12.0-16.0) g/dl Hct 40.3 (34.1-44.9) % Plt Count 375 (130-400) K/uL BMP 04/17/22 06:45 Sodium 141 Potassium 3.8 Chloride 111 H Carbon Dioxide 26 BUN 37 H Creatinine 1.05 Glucose 154 H Calcium 8.0 L Medications Administered Current Inpatient Medications Acetaminophen (Acetaminophen 1000 Mg/100 Ml Iv) 1,000 mg IV Q8H PRN PRN Reason: Pain or Fever Stop: 04/18/22 13:49 Albuterol (Albuterol Hfa 8 Gm Inhaler) 2 puffs INH Q6H PRN PRN Reason: Shortness Of Breath Stop: 05/05/22 13:22 Dextrose (Dextrose 50% 50 Ml Syringe) 25 - 50 ml IV UD PRN; Protocol PRN Reason: Hypoglycemia Protocol Stop: 05/05/22 13:22 Glucagon (Glucagon For Inj 1 Mg Vial) 1 mg SQ UD PRN; Protocol PRN Reason: Hypoglycemia Protocol Stop: 05/05/22 13:22 Glucose (Glucose 40% Gel 15 Gm Tube) 15 - 30 gm PO UD PRN; Protocol PRN Reason: Hypoglycemia Protocol Stop: 05/05/22 13:22 Glucose (Glucose 10 Tab/Tube) 4 - 8 tab PO UD PRN; Protocol PRN Reason: Hypoglycemia Treatment Stop: 05/05/22 13:22 Heparin Sodium (Porcine) (Heparin Sod 5,000 Unit/0.5 Ml Vial) 5,000 units SQ Q8 MOLLY Stop: 05/05/22 13:59 Last Admin: 04/17/22 13:03 Dose: 5,000 units Lorazepam 0.5 mg/ Syringe 0.375 mls @ 2 mls/min IV Q6H PRN PRN Reason: Anxiety/Agitation Stop: 05/14/22 09:29 Last Admin: 04/17/22 00:03 Dose: 2 mls/min Dexamethasone 6 mg/ Syringe 1.5 mls @ 1 mls/min IV Q24H MOLLY Stop: 05/16/22 08:59 Last Admin: 04/17/22 09:13 Dose: 1 mls/min Dextrose (D10w) 1,000 mls @ 0 mls/hr IV .Q0M PRN PRN Reason: protocol (see label comments) Stop: 05/17/22 15:59 Dextrose/Sodium Chloride (D5w And 1/2nss) 1,000 mls @ 80 mls/hr IV .[id number] MOLLY Stop: 04/17/22 15:59 Last Admin: 04/17/22 04:19 Dose: 80 mls/hr Fat Emulsion-[place] Oil/Soybean Oil (Clinolipid 20% Iv Fat Emulsion) 250 mls @ 41.667 mls/hr IV .Q6H [facility] Stop: 04/17/22 21:59 Amino Acids 2,000 ml/ (Nutrition (Parenteral)) 2,000 mls @ 1 mls/hr IV .Q24H [facility]; Protocol Stop: 04/18/22 15:59 Insulin Aspart (Insulin Aspart Per Unit) 0 units SC Q6 MOLLY Stop: 05/14/22 00:00 Last Admin: 04/17/22 13:12 Dose: Not Given Miscellaneous (Carbohydrates For Hypoglycemia ) 15 - 30 gm PO UD PRN PRN Reason: Hypoglycemia Protocol Stop: 05/05/22 13:22 Last Admin: 04/09/22 17:05 Dose: 15 gm Miscellaneous (Check Scopolamine Patch Placement) 1 each N/A QS [facility] Stop: 05/16/22 15:59 Last Admin: 04/17/22 07:33 Dose: 1 each Miscellaneous (Check Scopolamine Patch Placement) 1 each N/A Q72H [facility] Stop: 05/16/22 14:14 Last Admin: 04/16/22 15:35 Dose: Not Given Miscellaneous (Stop Clinolipid) 1 each N/A DAILY@2200 [facility] Stop: 05/17/22 21:59 Miscellaneous Information (Tpn/Ppn Consult Pharmacy) 1 each N/A UD PRN PRN Reason: Consult Stop: 05/16/22 15:02 Scopolamine (Scopolamine 1 Mg Tdsy) 1 mg TD Q72H [facility] Stop: 05/16/22 14:14 Last Admin: 04/16/22 15:34 Dose: 1 mg Trazodone HCl (Trazodone Hcl 50 Mg Tab) 25 mg PO [facility] Stop: 05/05/22 20:59 Last Admin: 04/07/22 21:05 Dose: 25 mg Vitamin D (Cholecalciferol 1,000 Units 25 Mcg Tab) 2,[facility] [place] [facility] Stop: 05/06/22 08:59 Last Admin: 04/17/22 07:33 Dose: Not Given
--- NOTE | 2022-04-17 14:58 | Pharmacy Report ---
Pharmacy PN Initial Consult - Date of Service April 17, 2022 - Scope Pharmacy has been consulted to manage parenteral nutrition orders and order appropriate labs. As part of the Nutrition Support Team guidelines, pharmacy will work in conjunction with dietary when determining the patients caloric needs. - Subjective The patient is a 81 year old F admitted on 04/05/22 12:16 for WEAKNESS, COVID. Patient is to receive parenteral nutrition for prolonged NPO status. Pertinent PMH: * T2DM * CKD stage III * COPD * Smoker - Objective Height: 5 ft 6 in Weight: 56.1 kg Diet: NPO Intake & Output (Last 24Hrs): Intake & Output 04/15/22 04/16/22 04/17/22 04/18/22 06:59 06:59 06:59 06:59 Intake Total 1938.667 / 9048.290 8982.000 / 2952.000 1990.667 / 1989.667 Output Total 300 / 300 800 / 800 800 / 800 Balance 1638.667 / 4814.389 2682.000 / 2152.000 1190.667 / 1190.667 Weight 51.8 kg 54.9 kg 56.1 kg 56.1 kg Laboratory Data (Last 24 Hrs):: 04/17/22 06:45 Sodium 141 Potassium 3.8 Chloride 111 H Carbon Dioxide 26 BUN 37 H Creatinine 1.05 Glucose 154 H Calcium 8.0 L Phosphorus 2.3 L Magnesium 1.8 Triglycerides 107 Nutrition Assessment:: Please refer to the Notes section of the EMR for the most recent slasher note. - Assessment 04/17: * Initiating PPN today for prolonged NPO status. Spoke with IV team who ensured me that peripheral sites were okay. Spoke with registered dietitian who provided macronutrient recommendations. * Plan to start at 50 mL/hr of Clinimix 4.25% Dex - 5% AA. Goal rate is 65 mL/hr. * Electrolytes are mostly WNL with the exception of phos - will supplement in bag today. - Plan For day 1 of PPN administration, the following will be ordered: Macronutrients Amino acids 51 grams/day Dextrose 60 grams/day Lipids 50 grams/day Micronutrients Sodium acetate 40 mEq Potassium phosphate 21 mMol Potassium acetate 40 mEq Multivitamins 10 mL Trace Elements 1 mL Thiamine 100 mg Famotidine 20 mg Total volume 1262 mL to be infused over 24 hrs will provide 908 kcal/day Final osmolarity 816 mOsm/L (maximum for PPN is 900 mOsm/L) Labs to be ordered per PN order protocol Pharmacy will follow and adjust parenteral nutrition orders on a daily basis. Thank you.
[2022-04-17] MEDS ORDERED: CLINOLIPID 20% IV FAT EMULSION 250 ML IV SCH (16:00)
[2022-04-17] MEDS ORDERED: DEXTROSE 10% 1,000 ML IV PRN (16:00)
[2022-04-17] MEDS ORDERED: PERIPHERAL TPN IV SCH (16:00)
[2022-04-17] MEDS ORDERED: D5W IV SCH (16:00)
[2022-04-17] MEDS ORDERED: AMINO ACIDS 4.25% IV SCH (16:00)
[2022-04-17] MEDS ORDERED: STOP CLINOLIPID SCH (22:00)
[2022-04-18] MEDS: HEPARIN SOD 5,000 UNIT/0.5 ML VIAL SQ SCH ×3 (05:00→22:25)
[2022-04-18] MEDS: INSULIN ASPART PER UNIT SC SCH ×4 (05:09→20:40)
[2022-04-18] MEDS: CHECK SCOPOLAMINE PATCH PLACEMENT SCH ×2 (08:48→17:03)
[2022-04-18] MEDS: dexAMETHasone 6 MG in SYRINGE 0 ML IV SCH (08:49)
--- NOTE | 2022-04-18 14:09 | Fluoroscopy Report ---
FL video swallow CLINICAL HISTORY: Assess for aspiration COMPARISON STUDY: No previous studies for comparison. FLUOROSCOPY TIME: 1.8 minutes. NUMBER OF IMAGES: 10 cine fluoroscopic swallowing sequences FINDINGS: The patient was given barium of varying consistencies and observed under fluoroscopy with c oncurrent tape recording. Examination is performed in conjunction with a member of the speech patholo gy department. The patient was given the following consistencies of barium: Thin liquid, mildly thick liquid, modera tely thick liquid, pudding, and cracker with paste. There was penetration and trace silent aspiration with thin barium liquid. There is heavy vallecula retention. IMPRESSION: Penetration and trace silent aspiration along with vallecula retention. Please see report from speech pathology regarding additional findings recommendations. ACT 112: Negative or not required by law. Electronically signed by: Jerry Mota M.D. 04/18/2022 2:08 PM
[2022-04-18 14:56] LABS: BUN Creatinine Ratio 32.3 (10-20); Calcium 8.9 mg/dl (8.5-10.1); Creatinine Clr Calc Pharmacy 30.3 ml/min; Est GFR (African American) 46.8 ml/min; Est GFR (Non-African American) 40.4 ml/min; Magnesium 1.9 mg/dl (1.7-2.4); Phosphorus 3.3 mg/dl (2.5-4.9); Potassium 3.7 mmol/L (3.5-5.1)
--- NOTE | 2022-04-18 16:52 | Hospitalist Progress Note ---
Date of Service April 18, 2022 Assessment & Plan (1) COVID-19: Plan: Has been+COVID-19 PCR. CXR without infiltrate. CT of the chest showed bilateral lower lobe airspace opacities and trace bilateral effusion compatible with COVID-19 virus infection CRP is elevated at 8.08, Procalcitonin: 0.2, Lactate: 1.0 Airborne isolation precaution Remdesivir day # 4-Monitor LFTs and renal function Supplemental oxygen as needed Albuterol prn Denies any shortness of breath or cough at rest and has been saturating on room air Cumulative fluid balance is +2792-Will give a dose of Lasix today Has poor appetite, encouraged to drink boost Incentive spirometry, flutter valve, Mucinex twice daily Denies any shortness of breath and has been on 2 L of oxygen to maintain saturation. Saturation remains at 91% with room air CRP remains elevated at more than 9 We will start dexamethasone She has been worsening and getting more shortness of breath with minimal movement Her heart rate is going down to 40s at times Her sodium level has gone up to 150s The case was discussed with the [id number]-ter who advised that her [id number]-ol-dko should not suffer and be comfortable as for her wish She was made DNR/DNI from 04/15/2022 She has been much better today and making reasonable conversation-discussed about resuscitation with her in detail today and she clearly mentioned not to resuscitate in case of cardiopulmonary arrest She is on 11-day of COVID 19 virus infection Discussed with infection control and likely to wait for a few more days as the patient has cough with some phlegm Clinically better and does not require any more oxygen than 2 L since admission Not having any cough and/or sputum production and has not been requiring any more oxygen than before Like to come out isolation from tomorrow Episode of aspiration N.p.o. for now We will get speech evaluation before restarting any food She failed swallowing evaluation terribly Will not start anything orally even liquid She will be given a small dose of intravenous fluid to maintain hydration Failed speech reevaluation Cannot eat or drink anything and getting minimal amount of fluid No artificial feeding and or fluid as per the living will Discussed about nutrition and she was agreeable to have nutrition in some form as she was feeling better and wants to go home after improvement Due to no swallowing reflex-we will start with PPN for now as she is going to pull out NG feeding Further nutritional status and the mechanism of giving nutrition will depend on improvement of her current condition Starting on PPN for now and surprisingly patient's swallowing reflex came back Will get a barium swallow evaluation before starting any diet Past swallowing evaluation and clears has been started Will advance as tolerated from tomorrow and discontinue PPN Possible pneumonia/bacterial infiltration In ER given 1L NSS, Cefepime due to suspicion of pneumonia, zofran sputum culture: Normal marcela Blood cultures: Negative Urine culture: Growing probable Enterococcus Day 3 Cefepime IV Cefepime has been discontinued Started on intravenous ampicillin for Enterococcus UTI and further identification and sensitivity are pending No fever and or chills and white count is not elevated We will continue with amoxicillin for now Condition has been improving Antibiotic course is finished Heparin SC for DVT prophylaxis Melena FOBT negative Repeat hemoglobin stable likely from Iron supplement (2) BPPV (benign paroxysmal positional vertigo): Plan: Per Dr. Wick's notes with addendum: vertigo which has persisted for "one month" however her sense of time is off so this isn't actually known. orthostatics negative. No leukocytosis, UA unremarkable. +COVID-[address] head no acute changes. Likely peripheral vertigo 2/2 BPPV in setting of active infection PT eval for Gwendolyn maneuver--difficult to move her around 2/2 significant weakness. Pt reports that she showers herself at home but cannot even stand at side of bed Fall precautions Meclizine prn Neurology consult-appreciate input and recommendation Normal TSH, normal B12 (3) Memory loss: Plan: No known history of dementia per ANTOINE although sometimes patient appeared forgetful. She lives with 24/7 caregivers from [facility] and ANTOINE feels the confusion may be from here being in the hospital and that even though she is confused and weak, she would like her cared for at home. Pt also has a close friend in town who helps out. We discussed the possibility of dementia and the MRI findings, as well as the idea that ANTOINE should be accompanying her to all dr visits in order to understand what is actually going on (ANTOINE requested me to text her current medication list which was declined--can request formally through medical records). Trazodone held and would strongly consider discontinuation at discharge. Remains pleasantly confused No aggressiveness Pleasantly confused and getting agitated at times No acute confusion (4) Generalized weakness: Plan: Reported generalized weakness and fatigue past 2 days. History ambulatory dysfunction, uses walker at baseline. Possible from underlying COVID-19 infection Fall precautions PT/OT eval (5) Elevated troponin: Plan: nonspecific, trended down and clinical picture inconsistent with ACS. Initial positive may have been mild demand ischemia in setting of tachycardia and known h/o CAD. No evidence of ACS (6) CAD (coronary artery disease): Plan: History CAD, silent MS Initial troponin: 17. EKG sinus tachycardia without acute ST changes Denies CP, SOB Trend troponin Consider echo and cardiology consult if troponin increasing Continue aspirin (7) COPD (chronic obstructive pulmonary disease): Plan: On prn inhaler only No signs exacerbation, Monitor closely Continue albuterol prn (8) Diabetes mellitus, type II: Plan: A1c: 5.5 on 02/2022 Monitor BSG, diabetic diet Novolog correction only at this time (9) Anxiety: (10) Tobacco use: Plan: ssmoking cessation advised (11) CKD (chronic kidney disease), stage III: Plan: At baseline. Monitor renal functions, avoid nephrotoxic agents when possible Creatinine slightly up at 1.74 with BUN at 54 DVT Prophylaxis Heparin SQ Dispo-Pending Lives at home by herself, with caregivers daily PT OT evaluation Discussed with the [id number] and answered all of her questions Discussed with [id number] and went over the living well and advanced directive Seems to be no more confusion and the patient was able to give her consent about resuscitation which remains DNR/DNI Admission and Anticipated Discharge Date Admission Date: April 05, 2022 Subjective 04/11/2022 The patient was seen and examined in telemetry unit and in the COVID room She complains to extreme weakness and tiredness Denies any respiratory symptoms or any cough and/or shortness of breath No fever and or chills 04/12/2022 The patient was seen and examined in telemetry unit and in the COVID room She has had an episode of aspiration with desaturation early this morning Her saturation went down to 88% She has been stable during examination without any shortness of breath and her cough Her weakness has been improving 04/13/2022 The patient was seen and examined in telemetry unit and in the COVID room She failed terribly the swallowing evaluation Her condition has deteriorated Denies any significant symptoms except profound weakness 04/14/2022 The patient was seen and examined in telemetry unit and in the COVID room She has been deteriorating Remains hemodynamically stable with 98% saturation on 2 L Complains to have extreme weakness but denies any other significant symptoms 04/15/2022 The patient was seen and examined in telemetry unit and in the COVID room She has been deteriorating and becoming very agitated and irritative Her heart rate has been going down as low as 40s And she is not making out much urine This is discussed with the [id number] and the patient was made DNR and likely to be comfort care down the line 04/16/2022 The patient was seen and examined in telemetry unit and in COVID room She has been having lots of oral secretions secondary to inability to swallow or spit it out She has been much better today and has been communicating normally She denies any significant symptoms except ongoing weakness She mentioned that she wants to go home 04/17/2022 The patient was seen and examined in telemetry unit and in the COVID room She has been feeling much better and is able to drink without any significant aspiration She will have barium swallow tomorrow Has minimal cough without any phlegm and does not have any shortness of breath at rest 04/18/2022 The patient was seen and examined in telemetry unit and in the COVID room She has been feeling much better and denies any cough and/or productive phlegm Denies any increasing shortness of breath Has been asking for drink and food Review of Systems Review of Systems: All systems reviewed and are unremarkable except as noted below Physical Exam Physical Exam: Lying in bed without any acute distress Constitutional: + ill appearing and + thin Eyes: PERRL, conjunctivae normal, anicteric sclerae ENMT: external ear and nose normal, oropharynx normal Neck: trachea midline, no thyromegaly Respiratory: no respiratory distress Auscultation: lungs clear to auscultation bilaterally, + diminished lung sounds and + crackles (Minimal crackles at the bases) Cardiovascular: Rate/Rhythm: regular rate, regular rhythm and + tachycardic Heart Sounds: normal S1 and normal S2; no murmur Extremities: + edema (Trace edema bilaterally) Gastrointestinal (Abdomen): Inspection/Auscultation: normal bowel sounds; abdomen not distended Percussion/Palpation: abdomen soft; abdomen nontender Musculoskeletal: No acute arthritis in any joint Neurologic: normal touch/pain/proprioception, moves all extremities and + confused (Pleasantly confused) Lymphatic: no cervical or axillary lymphadenopathy Results & Data Results & Data ([facility]) Vital Signs (Past 12 Hours) Vital Signs Temp Pulse Pulse Resp BP Pulse Ox O2 Del Method 04/18/22 07:00 54 L 04/18/22 12:37 36.8 C 83 20 123/73 100 Nasal Cannula 04/18/22 08:00 Nasal Cannula 04/18/22 08:54 36.5 C 70 12 115/63 100 Nasal Cannula O2 Flow Rate FiO2 04/18/22 07:00 04/18/22 12:37 2 04/18/22 08:00 2 04/18/22 08:54 2 Laboratory Results BMP 04/18/22 14:06 Sodium 143 Potassium 3.7 Chloride 109 H Carbon Dioxide 27 BUN 40 H Creatinine 1.24 H Glucose 134 H Calcium 8.9 Medications Administered Current Inpatient Medications Albuterol (Albuterol Hfa 8 Gm Inhaler) 2 puffs INH Q6H PRN PRN Reason: Shortness Of Breath Stop: 05/05/22 13:22 Dextrose (Dextrose 50% 50 Ml Syringe) 25 - 50 ml IV UD PRN; Protocol PRN Reason: Hypoglycemia Protocol Stop: 05/05/22 13:22 Glucagon (Glucagon For Inj 1 Mg Vial) 1 mg SQ UD PRN; Protocol PRN Reason: Hypoglycemia Protocol Stop: 05/05/22 13:22 Glucose (Glucose 40% Gel 15 Gm Tube) 15 - 30 gm PO UD PRN; Protocol PRN Reason: Hypoglycemia Protocol Stop: 05/05/22 13:22 Glucose (Glucose 10 Tab/Tube) 4 - 8 tab PO UD PRN; Protocol PRN Reason: Hypoglycemia Treatment Stop: 05/05/22 13:22 Heparin Sodium (Porcine) (Heparin Sod 5,000 Unit/0.5 Ml Vial) 5,000 units SQ Q8 [facility] Stop: 05/05/22 13:59 Last Admin: 04/18/22 13:59 Dose: 5,000 units Lorazepam 0.5 mg/ Syringe 0.375 mls @ 2 mls/min IV Q6H PRN PRN Reason: Anxiety/Agitation Stop: 05/14/22 09:29 Last Admin: 04/17/22 00:03 Dose: 2 mls/min Dexamethasone 6 mg/ Syringe 1.5 mls @ 1 mls/min IV Q24H [facility] Stop: 05/16/22 08:59 Last Admin: 04/18/22 08:49 Dose: 1 mls/min Dextrose (D10w) 1,000 mls @ 0 mls/hr IV .Q0M PRN PRN Reason: protocol (see label comments) Stop: 05/17/22 15:59 Insulin Aspart (Insulin Aspart Per Unit) 0 units SC Q6 [facility] Stop: 05/14/22 00:00 Last Admin: 04/18/22 13:35 Dose: Not Given Miscellaneous (Carbohydrates For Hypoglycemia ) 15 - 30 gm PO UD PRN PRN Reason: Hypoglycemia Protocol Stop: 05/05/22 13:22 Last Admin: 04/09/22 17:05 Dose: 15 gm Miscellaneous (Check Scopolamine Patch Placement) 1 each N/A QS [facility] Stop: 05/16/22 15:59 Last Admin: 04/18/22 08:48 Dose: 1 each Miscellaneous (Check Scopolamine Patch Placement) 1 each N/A Q72H [facility] Stop: 05/16/22 14:14 Last Admin: 04/16/22 15:35 Dose: Not Given Miscellaneous (Stop Clinolipid) 1 each N/A DAILY@2200 [facility] Stop: 05/17/22 21:59 Last Admin: 04/17/22 22:23 Dose: 1 each Miscellaneous Information (Tpn/Ppn Consult Pharmacy) 1 each N/A UD PRN PRN Reason: Consult Stop: 05/16/22 15:02 Scopolamine (Scopolamine 1 Mg Tdsy) 1 mg TD Q72H [facility] Stop: 05/16/22 14:14 Last Admin: 04/16/22 15:34 Dose: 1 mg Trazodone HCl (Trazodone Hcl 50 Mg Tab) 25 mg PO HS [facility] Stop: 05/05/22 20:59 Last Admin: 04/07/22 21:05 Dose: 25 mg Vitamin D (Cholecalciferol 1,000 Units 25 Mcg Tab) 2,000 units PO QAM [facility] Stop: 05/06/22 08:59 Last Admin: 04/17/22 07:33 Dose: Not Given
[2022-04-18] MEDS ORDERED: Nursing to Pharmacy Communication SCH (19:30)
[2022-04-19] MEDS: HEPARIN SOD 5,000 UNIT/0.5 ML VIAL SQ SCH ×3 (05:10→22:23)
[2022-04-19] MEDS: INSULIN ASPART PER UNIT SC SCH ×4 (08:18→20:40)
[2022-04-19] MEDS: dexAMETHasone 6 MG in SYRINGE 0 ML IV SCH (08:42)
[2022-04-19] MEDS: CHECK SCOPOLAMINE PATCH PLACEMENT SCH ×4 (08:42→16:44)
[2022-04-19 10:48] LABS: BUN Creatinine Ratio 41.8 (10-20); Calcium 8.5 mg/dl (8.5-10.1); Creatinine Clr Calc Pharmacy 31.1 ml/min; Est GFR (African American) 47.8 ml/min; Est GFR (Non-African American) 41.2 ml/min; Magnesium 1.9 mg/dl (1.7-2.4); Phosphorus 2.8 mg/dl (2.5-4.9); Potassium 3.5 mmol/L (3.5-5.1)
[2022-04-19] MEDS: SCOPOLAMINE 1 MG TDSY TD SCH (16:43)
--- NOTE | 2022-04-19 17:33 | Hospitalist Progress Note ---
Date of Service April 19, 2022 Assessment & Plan (1) COVID-19: Plan: Has been+COVID-19 PCR. CXR without infiltrate. CT of the chest showed bilateral lower lobe airspace opacities and trace bilateral effusion compatible with COVID-19 virus infection CRP is elevated at 8.08, Procalcitonin: 0.2, Lactate: 1.0 Airborne isolation precaution Remdesivir day # 4-Monitor LFTs and renal function Supplemental oxygen as needed Albuterol prn Denies any shortness of breath or cough at rest and has been saturating on room air Cumulative fluid balance is +2792-Will give a dose of Lasix today Has poor appetite, encouraged to drink boost Incentive spirometry, flutter valve, Mucinex twice daily Denies any shortness of breath and has been on 2 L of oxygen to maintain saturation. Saturation remains at 91% with room air CRP remains elevated at more than 9 We will start dexamethasone She has been worsening and getting more shortness of breath with minimal movement Her heart rate is going down to 40s at times Her sodium level has gone up to 150s The case was discussed with the [id number] who advised that her [id number] should not suffer and be comfortable as for her wish She was made DNR/DNI from 04/15/2022 She has been much better today and making reasonable conversation-discussed about resuscitation with her in detail today and she clearly mentioned not to resuscitate in case of cardiopulmonary arrest She is on 11-day of COVID 19 virus infection Discussed with infection control and likely to wait for a few more days as the patient has cough with some phlegm Clinically better and does not require any more oxygen than 2 L since admission Not having any cough and/or sputum production and has not been requiring any more oxygen than before She is out of isolation from today and she has been saturating normally on room air Episode of aspiration N.p.o. for now We will get speech evaluation before restarting any food She failed swallowing evaluation terribly Will not start anything orally even liquid She will be given a small dose of intravenous fluid to maintain hydration Failed speech reevaluation Cannot eat or drink anything and getting minimal amount of fluid No artificial feeding and or fluid as per the living will Discussed about nutrition and she was agreeable to have nutrition in some form as she was feeling better and wants to go home after improvement Due to no swallowing reflex-we will start with PPN for now as she is going to pull out NG feeding Further nutritional status and the mechanism of giving nutrition will depend on improvement of her current condition Starting on PPN for now and surprisingly patient's swallowing reflex came back Will get a barium swallow evaluation before starting any diet Past swallowing evaluation and clears has been started Will advance as tolerated from tomorrow and discontinue PPN Has been eating and drinking well and was advised to eat and drink more as she is anorexic Possible pneumonia/bacterial infiltration In ER given 1L NSS, Cefepime due to suspicion of pneumonia, zofran sputum culture: Normal marcela Blood cultures: Negative Urine culture: Growing probable Enterococcus Day 3 Cefepime IV Cefepime has been discontinued Started on intravenous ampicillin for Enterococcus UTI and further identification and sensitivity are pending No fever and or chills and white count is not elevated We will continue with amoxicillin for now Condition has been improving Antibiotic course is finished Heparin SC for DVT prophylaxis Melena FOBT negative Repeat hemoglobin stable likely from Iron supplement (2) BPPV (benign paroxysmal positional vertigo): Plan: Per Dr. Wick's notes with addendum: vertigo which has persisted for "one month" however her sense of time is off so this isn't actually known. orthostatics negative. No leukocytosis, UA unremarkable. +COVID-[address] head no acute changes. Likely peripheral vertigo 2/2 BPPV in setting of active infection PT eval for Gwendolyn maneuver--difficult to move her around 2/2 significant weakness. Pt reports that she showers herself at home but cannot even stand at side of bed Fall precautions Meclizine prn Neurology consult-appreciate input and recommendation Normal TSH, normal B12 (3) Memory loss: Plan: No known history of dementia per ANTOINE although sometimes patient appeared for getful. She lives with 24/7 caregivers from [facility] and ANTOINE feels the confusion may be from here being in the hospital and that even though she is confused and weak, she would like her cared for at home. Pt also has a close friend in town who helps out. We discussed the possibility of dementia and the MRI findings, as well as the idea that ANTOINE should be accompanying her to all dr visits in order to understand what is actually going on (ANTOINE requested me to text her current medication list which was declined--can request formally through medical records). Trazodone held and would strongly consider discontinuation at discharge. Remains pleasantly confused No aggressiveness Pleasantly confused and getting agitated at times Remains pleasantly confused (4) Generalized weakness: Plan: Reported generalized weakness and fatigue past 2 days. History ambulatory dysfunction, uses walker at baseline. Possible from underlying COVID-19 infection Fall precautions PT/OT eval-she was strongly advised to participate in physical therapy as she wants to go home Likely discharge on Sunday or Sunday (5) Elevated troponin: Plan: nonspecific, trended down and clinical picture inconsistent with ACS. Initial positive may have been mild demand ischemia in setting of tachycardia and known h/o CAD. No evidence of ACS (6) CAD (coronary artery disease): Plan: History CAD, silent [place] Initial troponin: 17. EKG sinus tachycardia without acute ST changes Denies CP, SOB Trend troponin Consider echo and cardiology consult if troponin increasing Continue aspirin (7) COPD (chronic obstructive pulmonary disease): Plan: On prn inhaler only No signs exacerbation, Monitor closely Continue albuterol prn (8) Diabetes mellitus, type II: Plan: A1c: 5.5 on 02/2022 Monitor BSG, diabetic diet Novolog correction only at this time (9) Anxiety: (10) Tobacco use: Plan: ssmoking cessation advised (11) CKD (chronic kidney disease), stage III: Plan: At baseline. Monitor renal functions, avoid nephrotoxic agents when possible Creatinine slightly up at 1.74 with BUN at 54 DVT Prophylaxis Heparin SQ Dispo-Pending Lives at home by herself, with caregivers daily PT OT evaluation Discussed with the [id number] and answered all of her questions Discussed with [id number] and went over the living well and advanced dire ctive Seems to be no more confusion and the patient was able to give her consent about resuscitation which remains DNR/DNI Discussed with the family members Admission and Anticipated Discharge Date Admission Date: April 05, 2022 Subjective 04/11/2022 The patient was seen and examined in telemetry unit and in the COVID room She complains to extreme weakness and tiredness Denies any respiratory symptoms or any cough and/or shortness of breath No fever and or chills 04/12/2022 The patient was seen and examined in telemetry unit and in the COVID room She has had an episode of aspiration with desaturation early this morning Her saturation went down to 88% She has been stable during examination without any shortness of breath and her cough Her weakness has been improving 04/13/2022 The patient was seen and examined in telemetry unit and in the COVID room She failed terribly the swallowing evaluation Her condition has deteriorated Denies any significant symptoms except profound weakness 04/14/2022 The patient was seen and examined in telemetry unit and in the COVID room She has been deteriorating Remains hemodynamically stable with 98% saturation on 2 L Complains to have extreme weakness but denies any other significant symptoms 04/15/2022 The patient was seen and examined in telemetry unit and in the COVID room She has been deteriorating and becoming very agitated and irritative Her heart rate has been going down as low as 40s And she is not making out much urine This is discussed with the [id number] and the patient was made DNR and likely to be comfort care down the line 04/16/2022 The patient was seen and examined in telemetry unit and in COVID room She has been having lots of oral secretions secondary to inability to swallow or spit it out She has been much better today and has been communicating normally She denies any significant symptoms except ongoing weakness She mentioned that she wants to go home 04/17/2022 The patient was seen and examined in telemetry unit and in the COVID room She has been feeling much better and is able to drink without any significant aspiration She will have barium swallow tomorrow Has minimal cough without any phlegm and does not have any shortness of breath at rest 04/18/2022 The patient was seen and examined in telemetry unit and in the COVID room She has been feeling much better and denies any cough and/or productive phlegm Denies any increasing shortness of breath Has been asking for drink and food 04/19/2022 The patient was seen and examined in telemetry unit and in the COVID room She has been feeling much better and denies any symptoms except weakness and also anorexia She was advised to eat more food and drink more fluid and participate in physical therapy and she was agreeable to those Review of Systems Review of Systems: All systems reviewed and are unremarkable except as noted below Physical Exam Physical Exam: Lying in bed without any acute distress Constitutional: + ill appearing and + thin Eyes: PERRL, conjunctivae normal, anicteric sclerae ENMT: external ear and nose normal, oropharynx normal Neck: trachea midline, no thyromegaly Respiratory: no respiratory distress Auscultation: lungs clear to auscultation bilaterally, + diminished lung sounds and + crackles (Minimal crackles at the bases) Cardiovascular: Rate/Rhythm: regular rate and regular rhythm; not tachycardic Heart Sounds: normal S1 and normal S2; no murmur Extremities: no edema (Trace edema bilaterally) Gastrointestinal (Abdomen): Inspection/Auscultation: normal bowel sounds; abdo men not distended Percussion/Palpation: abdomen soft; abdomen nontender Musculoskeletal: No acute arthritis in any joint Neurologic: normal touch/pain/proprioception, moves all extremities and + confused (Pleasantly confused) Lymphatic: no cervical or axillary lymphadenopathy Results & Data Results & Data ([facility]) Vital Signs (Past 12 Hours) Vital Signs Temp Pulse Pulse Resp BP BP Pulse Ox 04/19/22 16:54 36.8 C 99 H 133/78 99 04/19/22 14:19 60 04/19/22 12:33 36.3 C L 53 L 130/72 97 04/19/22 08:40 04/19/22 07:43 36.7 C 83 20 124/77 96 04/19/22 06:09 62 O2 Del Method 04/19/22 16:54 Room Air 04/19/22 14:19 04/19/22 12:33 Room Air 04/19/22 08:40 Room Air 04/19/22 07:43 Room Air 04/19/22 06:09 Medications Administered Current Inpatient Medications Albuterol (Albuterol Hfa 8 Gm Inhaler) 2 puffs INH Q6H PRN PRN Reason: Shortness Of Breath Stop: 05/05/22 13:22 Dextrose (Dextrose 50% 50 Ml Syringe) 25 - 50 ml IV UD PRN; Protocol PRN Reason: Hypoglycemia Protocol Stop: 05/05/22 13:22 Glucagon (Glucagon For Inj 1 Mg Vial) 1 mg SQ UD PRN; Protocol PRN Reason: Hypoglycemia Protocol Stop: 05/05/22 13:22 Glucose (Glucose 40% Gel 15 Gm Tube) 15 - 30 gm PO UD PRN; Protocol PRN Reason: Hypoglycemia Protocol Stop: 05/05/22 13:22 Glucose (Glucose 10 Tab/Tube) 4 - 8 tab PO UD PRN; Protocol PRN Reason: Hypoglycemia Treatment Stop: 05/05/22 13:22 Heparin Sodium (Porcine) (Heparin Sod 5,000 Unit/0.5 Ml Vial) 5,000 units SQ Q8 MOLLY Stop: 05/05/22 13:59 Last Admin: 04/19/22 13:20 Dose: 5,000 units Lorazepam 0.5 mg/ Syringe 0.375 mls @ 2 mls/min IV Q6H PRN PRN Reason: Anxiety/Agitation Stop: 05/14/22 09:29 Last Admin: 04/17/22 00:03 Dose: 2 mls/min Dexamethasone 6 mg/ Syringe 1.5 mls @ 1 mls/min IV Q24H MOLLY Stop: 05/16/22 08:59 Last Admin: 04/19/22 08:42 Dose: 1 mls/min Dextrose (D10w) 1,000 mls @ 0 mls/hr IV .Q0M PRN PRN Reason: protocol (see label comments) Stop: 05/17/22 15:59 Insulin Aspart (Insulin Aspart Per Unit) 0 units SC ACHS [facility] Stop: 05/18/22 20:59 Last Admin: 04/19/22 13:06 Dose: Not Given Miscellaneous (Carbohydrates For Hypoglycemia ) 15 - 30 gm PO UD PRN PRN Reason: Hypoglycemia Protocol Stop: 05/05/22 13:22 Last Admin: 04/09/22 17:05 Dose: 15 gm Miscellaneous (Check Scopolamine Patch Placement) 1 each N/A QS [facility] Stop: 05/16/22 15:59 Last Admin: 04/19/22 16:44 Dose: 1 each Miscellaneous (Check Scopolamine Patch Placement) 1 each N/A Q72H [facility] Stop: 05/16/22 14:14 Last Admin: 04/19/22 16:43 Dose: Not Given Scopolamine (Scopolamine 1 Mg Tdsy) 1 mg TD Q72H MOLLY Stop: 05/16/22 14:14 Last Admin: 04/19/22 16:43 Dose: 1 mg Trazodone HCl (Trazodone Hcl 50 Mg Tab) 25 mg PO HS [facility] Stop: 05/05/22 20:59 Last Admin: 04/07/22 21:05 Dose: 25 mg Vitamin D (Cholecalciferol 1,000 Units 25 Mcg Tab) 2,000 units PO QAM MOLLY Stop: 05/06/22 08:59 Last Admin: 04/17/22 07:33 Dose: Not Given
[2022-04-20] MEDS: CHECK SCOPOLAMINE PATCH PLACEMENT SCH ×2 (00:18→08:12)
[2022-04-20] MEDS: HEPARIN SOD 5,000 UNIT/0.5 ML VIAL SQ SCH ×3 (06:10→22:00)
[2022-04-20] MEDS: dexAMETHasone 6 MG in SYRINGE 0 ML IV SCH (08:18)
[2022-04-20] MEDS: INSULIN ASPART PER UNIT SC SCH ×4 (11:11→22:00)
[2022-04-20] MEDS: CHOLECALCIFEROL 1,000 UNITS 25 MCG TAB PO SCH (11:29)
[2022-04-20] MEDS ORDERED: FAMOTIDINE 10 MG TABLET PO SCH (15:15)
[2022-04-20] MEDS ORDERED: FAMOTIDINE 10 MG TABLET PO PRN (15:33)
--- NOTE | 2022-04-20 15:35 | Hospitalist Progress Note ---
Date of Service April 20, 2022 Assessment & Plan (1) COVID-19: Plan: COVID 19 Pneumonia-POA Hypoxia --CXR:Mild airspace opacities are again seen at the left lung base and suggest pneumonia/aspiration pneumonitis. Radiographic follow-up to resolution is re commended. Follow-up should include both PA and lateral views. Cardiomegaly without radiographic evidence of congestive failure. --CT Chest:Bilateral lower lobe airspace opacities, greater on the left. Mild lingular groundglass opacity. The findings are suggestive of an infectious process. Trace bilateral pleural effusions. No pneumothorax. Small hiatal hernia. CRP:8.08, Procalcitonin: 0.2, Lactate: 1.0 Sputum, blood cultures negative Completed Remdesivir Course Continue Incentive spirometry, flutter valve Received dexamethasone Poor oral intake Saturating well on room air Aspiration/Dysphagia Video Swallow:Penetration and trace silent aspiration along with vallecula retention. Initially failed swallow eval PPN discontinue Continue Purred diet Appreciate Speech therapy eval Aspiration precautions UTI Urine culture: Enterococcus Completed antibiotic course Suspected Melena FOBT negative likely from Iron supplement Hb Stable (2) BPPV (benign paroxysmal positional vertigo): Plan: MRI Brain:No acute intracranial abnormality. Scattered foci of T2 hyperintensity seen within the periventricular and subcortical white matter are nonspecific but favor moderate to severe microvascular ischemic change. Orthostatics negative Likely peripheral vertigo 2/2 BPPV in setting of active infection Fall precautions Meclizine prn Appreciate Neurology Input Normal TSH, normal B12 Improved (3) Memory loss: Plan: As per Prior Provider No known history of dementia per ANTOINE although sometimes patient appeared forgetful. She lives with 24/7 caregivers from [facility] and ANTOINE feels the confusion may be from here being in the hospital and that even though she is confused and weak, she would like her cared for at home. Pt also has a close friend in town who helps out. We discussed the possibility of dementia and the MRI findings, as well as the idea that ANTOINE should be accompanying her to all dr visits in order to understand what is actually going on (ANTOINE requested me to text her current medication list which was declined--can request formally through medical records). Trazodone held and would strongly consider discontinuation at discharge. No aggressiveness Pleasantly confused and getting agitated at times (4) Generalized weakness: Plan: Ambulatory dysfunction Generalized weakness Patient is not able to transfer safely with a cane or walker at this time. A wheelchair would improve ADLs within the home Fall precautions Continue PT/OT (5) Elevated troponin: Plan: Nonspecific, trended down and clinical picture inconsistent with ACS. Initial positive may have been mild demand ischemia in setting of tachycardia and known h/o CAD. No evidence of ACS (6) CAD (coronary artery disease): Plan: H/O CAD, silent [place] Denies CP, SOB Troponin trended down Continue aspirin (7) COPD (chronic obstructive pulmonary disease): Plan: No signs exacerbation Continue albuterol prn (8) Diabetes mellitus, type II: Plan: A1c: 5.5 on 02/2022 Monitor BSG, diabetic diet Novolog correction only at this time (9) Anxiety: (10) Tobacco use: Plan: ssmoking cessation advised (11) CKD (chronic kidney disease), stage III: Plan: Cr at baseline. Monitor renal functions, avoid nephrotoxic agents when possible DVT Px Heparin SQ Disposition Likely tomorrow:Home with Code Status DNR/DNI Admission and Anticipated Discharge Date Admission Date: April 05, 2022 Subjective Patient is seen and examined at bedside States having some abdominal discomfort Also has generalized weakness and poor oral intake Saturating well on room air Denies any other complaints Review of Systems Review of Systems: All systems reviewed & are unremarkable except as noted in Subjective Physical Exam Physical Exam: Physical Exam: Vitals signs as noted above General Appearance: Chronically appearing, thin, frail, elderly, no apparent distress Head: normocephalic, Atraumatic Eyes: normal inspection, EOMI Neck: supple, Trachea midline Respiratory/Chest: Decreased breath sounds, CTA, No accessory muscle use Cardiovascular: S1, S2, No murmur Abdomen/GI:Soft, Non tender, Bowel sounds present Extremities/Musculoskeletal:normal inspection, no edema Neurologic/Psych:AAOX3, grossly no focal neurological deficits,+ hearing impairment Skin: normal color, warm Results & Data Results & Data ([facility]) Vital Signs (Past 12 Hours) Vital Signs Temp Pulse Resp BP Pulse Ox O2 Del Method 04/20/22 12:43 37.1 C 75 18 121/79 100 Room Air 04/20/22 04:05 36.4 C L 58 L 16 101/62 99 Room Air
[2022-04-20] MEDS: busPIRone 5 MG TAB PO SCH (21:59)
[2022-04-20] MEDS: PANTOprazole 40 MG TAB PO SCH (21:59)
[2022-04-21] MEDS: HEPARIN SOD 5,000 UNIT/0.5 ML VIAL SQ SCH (05:30)
[2022-04-21] MEDS: busPIRone 5 MG TAB PO SCH (07:54)
[2022-04-21] MEDS: CHOLECALCIFEROL 1,000 UNITS 25 MCG TAB PO SCH (07:54)
[2022-04-21] MEDS: PANTOprazole 40 MG TAB PO SCH (07:54)
[2022-04-21] MEDS ORDERED: ASPIRIN 81 MG ECTAB PO SCH (09:00)
[2022-04-21 09:39] LABS: Hematocrit (blood only) 39.9 % (34.1-44.9); Mean Corpuscular Hemoglobin 29.7 pg (25.0-34.0); Mean Corpuscular Hgb Conc 32.6 g/dL (32.0-36.0); Mean Corpuscular Volume 91.1 fL (80.0-100.0); Mean Platelet Volume 10.3 fL (9.4-12.3); Platelet Count 317 K/uL (130-400); RDW Coefficient of Variation 13.6 % (11.5-14.5); RDW Standard Deviation 45.6 fL (36.4-46.3); Red Blood Count 4.38 M/uL (3.93-5.22)
[2022-04-21 10:03] LABS: BUN Creatinine Ratio 43.8 (10-20); Calcium 8.7 mg/dl (8.5-10.1); Creatinine Clr Calc Pharmacy 33.6 ml/min; Est GFR (African American) 57.3 ml/min; Est GFR (Non-African American) 49.4 ml/min; Potassium 3.8 mmol/L (3.5-5.1)
[2022-04-21] MEDS: INSULIN ASPART PER UNIT SC SCH ×2 (10:23→12:48)
--- NOTE | 2022-04-21 13:49 | Hospitalist Progress Note ---
Date of Service April 21, 2022 Assessment & Plan (1) COVID-19: Plan: COVID 19 Pneumonia-POA Hypoxia --CXR:Mild airspace opacities are again seen at the left lung base and suggest pneumonia/aspiration pneumonitis. Radiographic follow-up to resolution is re commended. Follow-up should include both PA and lateral views. Cardiomegaly without radiographic evidence of congestive failure. --CT Chest:Bilateral lower lobe airspace opacities, greater on the left. Mild lingular groundglass opacity. The findings are suggestive of an infectious process. Trace bilateral pleural effusions. No pneumothorax. Small hiatal hernia. CRP:8.08, Procalcitonin: 0.2, Lactate: 1.0 Sputum, blood cultures negative Completed Remdesivir Course Continue Incentive spirometry, flutter valve Received dexamethasone Poor oral intake Saturating well on room air Aspiration/Dysphagia Video Swallow:Penetration and trace silent aspiration along with vallecula retention. Initially failed swallow eval PPN discontinue Continue Pureed diet Appreciate Speech therapy eval Aspiration precautions No recurrence of aspiration issues on current diet UTI Urine culture: Enterococcus Completed antibiotic course Suspected Melena FOBT negative likely from Iron supplement Hb Stable (2) BPPV (benign paroxysmal positional vertigo): Plan: MRI Brain:No acute intracranial abnormality. Scattered foci of T2 hyperintensity seen within the periventricular and subcortical white matter are nonspecific but favor moderate to severe microvascular ischemic change. Orthostatics negative Likely peripheral vertigo 2/2 BPPV in setting of active infection Fall precautions Meclizine prn Appreciate Neurology Input Normal TSH, normal B12 Resolved (3) Memory loss: Plan: As per Prior Provider No known history of dementia per ANTOINE although sometimes patient appeared forgetful. She lives with 24/7 caregivers from [facility] and ANTOINE feels the confusion may be from here being in the hospital and that even though she is confused and weak, she would like her cared for at home. Pt also has a close friend in town who helps out. We discussed the possibility of dementia and the MRI findings, as well as the idea that ANTOINE should be accompanying her to all dr visits in order to understand what is actually going on (ANTOINE requested me to text her current medication list which was declined--can request formally through medical records). Trazodone held and would strongly consider discontinuation at discharge. No aggressiveness Pleasantly confused and getting agitated at times (4) Generalized weakness: Plan: Ambulatory dysfunction Generalized weakness Patient is not able to transfer safely with a cane or walker at this time. A wheelchair would improve ADLs within the home Fall precautions Continue PT/OT (5) Elevated troponin: Plan: Nonspecific, trended down and clinical picture inconsistent with ACS. Initial positive may have been mild demand ischemia in setting of tachycardia and known h/o CAD. No evidence of ACS (6) CAD (coronary artery disease): Plan: H/O CAD, silent [place] Denies CP, SOB Troponin trended down Continue aspirin Sinus Bradycardia Symptomatic No pauses on monitor Low heart rate usually as per patient Mostly noted while asleep Avoid AV rachana blocking agents Monitor (7) COPD (chronic obstructive pulmonary disease): Plan: No signs exacerbation Continue albuterol prn (8) Diabetes mellitus, type II: Plan: A1c: 5.5 on 02/2022 Monitor BSG, diabetic diet Novolog correction only at this time (9) Anxiety: (10) Tobacco use: Plan: ssmoking cessation advised (11) CKD (chronic kidney disease), stage III: Plan: Cr at baseline. Monitor renal functions, avoid nephrotoxic agents when possible DVT Px Heparin SQ Disposition Home with HH Code Status DNR/DNI Admission and Anticipated Discharge Date Admission Date: April 05, 2022 Subjective Patient is seen and examined at bedside Abdominal discomfort resolved No new complaints Eager to get discharged home today Saturating well on room air Denies any chest pain, shortness of breath, dizziness, nausea Review of Systems Review of Systems: All systems reviewed & are unremarkable except as noted in Subjective Physical Exam Physical Exam: Physical Exam: Vitals signs as noted above General Appearance: Chronically appearing, thin, frail, elderly, no apparent distress Head: normocephalic, Atraumatic Eyes: normal inspection, EOMI Neck: supple, Trachea midline Respiratory/Chest: Decreased breath sounds, CTA, No accessory muscle use Cardiovascular: S1, S2, No murmur Abdomen/GI:Soft, Non tender, Bowel sounds present Extremities/Musculoskeletal:normal inspection, no edema Neurologic/Psych:AAOX3, grossly no focal neurological deficits,+ hearing impairment Skin: normal color, warm Results & Data Results & Data ([facility]) Vital Signs (Past 12 Hours) Vital Signs Temp Pulse Resp BP BP Pulse Ox O2 Del Method 04/21/22 08:00 36.8 C 45 L 18 122/68 96 Room Air 04/21/22 03:42 36.7 C 48 L 16 125/73 98 Room Air Laboratory Results Short CBC 04/21/22 Range/Units 09:10 WBC 12.40 H (4.8-10.8) K/ul Hgb 13.0 (12.0-16.0) g/dl Hct 39.9 (34.1-44.9) % Plt Count 317 (130-400) K/uL BMP 04/21/22 09:10 Sodium 144 Potassium 3.8 Chloride 110 H Carbon Dioxide 28 BUN 46 H Creatinine 1.05 Glucose 85 Calcium 8.7
--- NOTE | 2022-04-21 14:07 | Discharge Summary ---
Date of Service April 21, 2022 Admission HPI Per Admitting Provider Patient is 81 y/o F with PMH CAD, DM II, COPD, CKD III, anxiety, SILVIA, tobacco use presented to ER with c/o dizziness for couple of weeks. Patient reports for the past couple of weeks has been having dizziness with standing and walking. Patient reports historian when able to describe dizziness and reports its "just dizziness" however does report sometimes has episodes where objects appear to be spinning around. She reports this makes her feel off balance. Patient reports has had a couple of falls secondary to the dizziness. She reports last fall was 1 week ago. Patient denies any syncope or LOC. Denies associated nausea, vomiting. Patient reports past day feeling very tired and generalized weakness. Is reported by EMS patient was unable to ambulate this morning. Patient reports uses walker at baseline. Patient denies any known fever, chills. She denies any known ill contacts. Patient reports lives at home alone however has neighbors and family stopping to check on her. Patient reports had 2 Pfizer COVID-19 vaccines and booster. Booster was on on 09/12/2021 per outpatient chart review. Denies chest pain, shortness of breath. She states she may have been having slight cough for the past couple of days but denies significant cough. Denies diaphoresis, N/V/D/C, RAMACHANDRAN, vision changes, neck pain, orthopnea, palpitations, sore throat, choking, otalgia, rhinorrhea, abdominal pain, paresthesias, extremity edema, rashes, urinary symptoms. In ER T: 37.8C, other vitals stable. 94% on room air. +COVID-[address] PCR. [address] without infiltrate. CT head no acute changes. No leukocytosis and UA unremarkable. Reported patient too weak to go home. Admission Exam Per Admitting Provider Physical Exam Physical Exam: General: no acute distress, thin elderly female Head: normocephalic, atraumatic Eyes: PERRL, EOM's intact, conjunctiva non-injected, anicteric ENT: normal inspection external ears, nose, mucous membranes dry Neck: supple, trachea midline Lungs: clear, no respiratory distress, 94-95% on room air, no wheezing/rhonchi/rales CV: RRR, no murmur, no pretibial edema Abd: normal BS, soft, non-tender Ext: no cyanosis, no calf tenderness Neuro: Alert, oriented to person, place, and year. Knows its summer unsure of month or day of week. + reported reproduced vertigo like symptoms with ROM neck, no other focal deficits noted, normal affect Skin: warm, dry Principal Diagnosis COVID 19 Pneumonia Aspiration/Dysphagia Urinary Tract Infection Discharge Data Allergies Allergy/AdvReac Type Severity Reaction Status Date / Time Penicillins Allergy Mild Rash Verified 11/02/21 08:27 Consultations 04/05/22 11:42 ED Decision to Admit Stat 04/06/22 19:57 Consult Neurology Routine Ordered Studies 04/05/22 09:23 CT head/brain wo con Stat 04/06/22 19:55 MR brain wo/w con Routine 04/09/22 12:55 CT chest diagnostic wo con Routine 04/16/22 14:04 US - OR guided needle placemen Routine 04/18/22 13:00 FL video swallow Routine Hospital Course (1) COVID-19: COVID 19 Pneumonia-POA Hypoxia --CXR:Mild airspace opacities are again seen at the left lung base and suggest pneumonia/aspiration pneumonitis. Radiographic follow-up to resolution is recommended. Follow-up should include both PA and lateral views. Cardiomegaly without radiographic evidence of congestive failure. --CT Chest:Bilateral lower lobe airspace opacities, greater on the left. Mild lingular groundglass opacity. The findings are suggestive of an infectious process. Trace bilateral pleural effusions. No pneumothorax. Small hiatal hernia. CRP:8.08, Procalcitonin: 0.2, Lactate: 1.0 Sputum, blood cultures negative Completed Remdesivir Course Continue Incentive spirometry, flutter valve Received dexamethasone Poor oral intake Saturating well on room air Aspiration/Dysphagia Video Swallow:Penetration and trace silent aspiration along with vallecula retention. Initially failed swallow eval PPN discontinue Continue Pureed diet Appreciate Speech therapy eval Aspiration precautions No recurrence of aspiration issues on current diet UTI Urine culture: Enterococcus Completed antibiotic course Suspected Melena FOBT negative likely from Iron supplement Hb Stable (2) BPPV (benign paroxysmal positional vertigo): MRI Brain:No acute intracranial abnormality. Scattered foci of T2 hyperintensity seen within the periventricular and subcortical white matter are nonspecific but favor moderate to severe microvascular ischemic change. Orthostatics negative Likely peripheral vertigo 2/2 BPPV in setting of active infection Fall precautions Meclizine prn Appreciate Neurology Input Normal TSH, normal B12 Resolved (3) Memory loss: As per Prior Provider No known history of dementia per ANTOINE although sometimes patient appeared forgetful. She lives with 24/7 caregivers from [facility] and ANTOINE feels the confusion may be from here being in the hospital and that even though she is confused and weak, she would like her cared for at home. Pt also has a close friend in town who helps out. We discussed the possibility of dementia and the MRI findings, as well as the idea that ANTOINE should be accompanying her to all dr visits in order to understand what is actually going on (ANTOINE requested me to text her current medication list which was declined--can request formally through medical records). Trazodone held and would strongly consider discontinuation at discharge. No aggressiveness Pleasantly confused and getting agitated at times (4) Generalized weakness: Ambulatory dysfunction Generalized weakness Patient is not able to transfer safely with a cane or walker at this time. A wheelchair would improve ADLs within the home Fall precautions Continue PT/OT (5) Elevated troponin: Nonspecific, trended down and clinical picture inconsistent with ACS. Initial positive may have been mild demand ischemia in setting of tachycardia and known h/o CAD. No evidence of ACS (6) CAD (coronary artery disease): H/O CAD, silent CA Denies CP, SOB Troponin trended down Continue aspirin Sinus Bradycardia Symptomatic No pauses on monitor Low heart rate usually as per patient Mostly noted while asleep Avoid AV rachana blocking agents Monitor (7) COPD (chronic obstructive pulmonary disease): No signs exacerbation Continue albuterol prn (8) Diabetes mellitus, type II: A1c: 5.5 on 02/2022 Monitor BSG, diabetic diet Novolog correction only at this time (9) Anxiety: (10) Tobacco use: ssmoking cessation advised (11) CKD (chronic kidney disease), stage III: Cr at baseline. Monitor renal functions, avoid nephrotoxic agents when possible DVT Px Heparin SQ Disposition Home with HH Code Status DNR/DNI Total Time Total Time Spent Total Time Spent (In Minutes): 44 minutes Discharge Plan Discharge Items Patient Disposition: Home - Home Health Services Reason For Visit: WEAKNESS, COVID Discharge Diagnosis: COVID 19 Pneumonia Aspiration/Dysphagia Urinary Tract Infection Condition on Discharge: Fair Activity: Per Instructions section Exercise/Sports: Gradually increase as tolerated Non-emergency contact: Primary Care Provider Call non-emergency contact if: you have any medication questions, your symptoms worsen, your pain is concerning for you and you have a fever Follow-up/Referrals: Bandar Nieves MD [Primary Care Provider] - (Date & Time 04/27/2022 11:40 AM Provider Bandar Nieves III, MD Department [facility] ) Diet: Carb Consistent or DM2 Diet Texture: Pureed (blended smooth) Addtl Attending Provider Instructions: Follow-up with your primary care physician 04/27/2022 11:40 AM Follow-up with your taco maker for further evaluation of low heart rate as advised. Follow Speech therapy recommendations Pured diet Aspiration precautions, no straws. Fully upright for meals and for 30 minutes after meals. Safe swallow strategies: Will need assistance with eating. Small single sips from the cup. Stringent mouth care-Brech all surfaces of the mouth and tongue prior to meals, and before bed to reduce the amount of oral bacteria that can be aspirated in her saliva Seek immediate medical attention if your symptoms reoccur or worsen Please take all medications as instructed on discharge list below. Please call if you have any questions or problems. You can reach a [facility] hospitalist on duty at [facility] 24 hours a day by calling [phone] Pending Studies at Discharge: No Stand-Alone Forms: My [facility], Smoking Cessation Medications and DC Order Prescriptions: Continued multivitamin Tablet 1 tab PO QAM aspirin 81 mg Tablet,Delayed Release (Dr/Ec) 81 mg PO QAM cholecalciferol (vitamin D3) [Vitamin D3] 2,000 unit Tablet 2,000 unit PO QAM albuterol sulfate [ProAir HFA] 90 mcg/actuation Hfa Aerosol Inhaler 2 puff INHALATION Q6H PRN (Reason: Shortness Of Breath) PreserVision AREDS [id number] diaw-kg-ufus Tablet 1 tab PO QAM alprazolam 0.5 mg tablet 0.5 mg PO BID PRN (Reason: Anxiety) trazodone 50 mg Tablet 25 mg PO HS mirtazapine 15 mg Tablet 22.5 mg PO HS buspirone 10 mg tablet 10 mg PO BID ferrous sulfate 325 mg (65 mg iron) tablet 325 mg PO BID omeprazole 40 mg capsule,delayed release(DR/EC) 40 mg PO BID Qty: 180 3RF Discharge Orders: Discharge Order (Routine); Ordered 04/21/22 Ordered By: Yuriy Dickey Admission Data Admit Date/Time: 04/05/22 12:16 Attending Provider: Yuriy Dickey Admit Provider: Sunil Ruiz Primary Care Provider: Bandar Nieves Other Providers: Sunil Ruiz ; [facility] ; Justine Sultana [facility] ; Pura Villalobos ; [facility]
[2022-04-21] MEDS ORDERED: busPIRone 5 MG TAB PO SCH (21:00)
== END 2022-04-21 15:07 | disposition home health service (06) | DRG 177 ==
LOC: ED 09:08 → SUATTDRO 12:16 → 2S 12:16
DX: K92.1 Melena; I25.2 Old myocardial infarction; R29.6 Repeated falls; J44.0 Chronic obstructive pulmonary disease with (acute) lower respiratory infection; Z79.899 Other long term (current) drug therapy; Z60.2 Problems related to living alone; I25.10 Atherosclerotic heart disease of native coronary artery without angina pectoris; Z88.0 Allergy status to penicillin; H81.10 Benign paroxysmal vertigo, unspecified ear; K21.00 Gastro-esophageal reflux disease with esophagitis, without bleeding; F41.9 Anxiety disorder, unspecified; E11.22 Type 2 diabetes mellitus with diabetic chronic kidney disease; Z66 Do not resuscitate; R53.1 Weakness; E86.0 Dehydration; B95.2 Enterococcus as the cause of diseases classified elsewhere; F01.50 Vascular dementia, unspecified severity, without behavioral disturbance, psychotic disturbance, mood disturbance, and anxiety; U07.1 COVID-19; Z91.81 History of falling; T45.4X5A Adverse effect of iron and its compounds, initial encounter; R44.1 Visual hallucinations; F17.210 Nicotine dependence, cigarettes, uncomplicated; N39.0 Urinary tract infection, site not specified; F32.A Depression, unspecified; R63.0 Anorexia; R00.1 Bradycardia, unspecified; N18.30 Chronic kidney disease, stage 3 unspecified; R53.83 Other fatigue; J12.82 Pneumonia due to coronavirus disease 2019; Z79.82 Long term (current) use of aspirin; Z91.19 Patient's noncompliance with other medical treatment and regimen; R09.02 Hypoxemia; R13.10 Dysphagia, unspecified; G47.33 Obstructive sleep apnea (adult) (pediatric); I24.8 Other forms of acute ischemic heart disease

== ENCOUNTER 2022-04-23 16:28 | Inpatient (IN) ==
--- NOTE | 2022-04-23 16:53 | Emergency Department Note ---
Impression & Plan Bilateral leg weakness, COVID-19, Acute dehydration ED Provider Note NAME: LIZETTE COREA AGE: 81 SEX: F : 1940 ARRIVES VIA: Ambulance INFORMANT: Patient, ED PROVIDER(S): Campos Paris MD Chief Complaint: Weakness, fatigue, placement for rehab HPI: Patient presents after being evaluated by PT today and the patient has had some increasing weakness and inability to participate with rehab to where she wo uld like to go to [facility] for additional treatment. The patient did have a recent inpatient hospitalization for COVID and associated pneumonia lasting approximate 17 days was discharged on Sunday was recommended to go to rehab but she has not to do so. Patient currently has 02/04 care. Patient has had leg weakness which has been acute on chronic and persistent. Patient does have mild nonproductive chronic cough. Patient is a smoker. Patient Nuys any fevers chills chest pains or shortness of breath. Patient denies any nausea vomiting her appetite is "so-so." Patient denies any recent falls or trauma. Family with patient states that they are unable to care for her and they have difficu lty with transferring. Patient does have chronic back pain which is unchanged. The patient does have chronic incontinence but no saddle anesthesia or numbness. ROS: See HPI for pertinent positives and negatives. A total of 10 systems were reviewed and otherwise negative. Past medical history: See below Surgical history: See below Social history: See below Physical Exam: GENERAL: NAD, non-toxic. Wearing glasses. EYE EXAM: Normal conjunctiva. PERRL, no anisocoria and EOM's grossly intact w/o pain. NECK: Supple, no nuchal rigidity, no adenopathy, non-tender. No signs of meningismus. FROM of the neck with good chin to chest and neck extension. No stridor. LUNGS: Scant expiratory wheezes throughout. Normal chest wall mechanics. HEART: NSR, no MRG. ABDOMEN: Abdomen soft, non-tender, normo-active bowel sounds, no masses, no rebound or guarding. BACK: No CVA TTP. SKIN: No rashes and no bruising. UPPER EXTREMITIES: Upper extremities are grossly normal. LOWER EXTREMITIES: Grossly normal, no edema. NEURO EXAM: A&O x3, cranial nerves II-XII grossly intact, normal speech, moves all 4 extremities with weakness of the bilateral lower extremities, no sensory deficits. Differential diagnoses: Infection, dehydration, metabolic abnormality, hypo/hyperglycemia, electrolyte disturbance, anemia, hypoxia, cardiac sources, intracerebral event, toxicologic, neurologic, as well as other pathologies. Course: Patient was seen and evaluated the bedside. Full history physical exam was perf ormed. EKG interpreted by me Sinus, rate 98, normal intervals, normal axis, PVC noted, no obvious ST elevations. T wave versions inferiorly. Imaging Studies: See Below Cardiac monitoring: An order was placed for continuous cardiac monitoring. The monitor shows a rate of 65 with sinus rhythm. MDM: Patient was seen due to concern for placement. Patient was unable to be placed this evening. Blood work is obtained and I did speak with the on-call hospitalist Bri Ma PA-C and the patient was admitted by Dr. Ruiz. Patient has a white count 13 with a normal H&H and platelet count. Kidney function with prerenal azotemia noted. Patient is COVID-positive. Patient was admitted to the medicine service. Chest x-ray shows no acute chest disease. Past Med/Surg History Medical History Anxiety Bronchiectasis CAD (coronary artery disease) Cancer of left breast 2005--sx, chemo, radiation CKD (chronic kidney disease), stage III COPD (chronic obstructive pulmonary disease) inhaler prn Depression Esophageal ulcer dx 10/2020 GERD (gastroesophageal reflux disease) Hyperlipidemia Myocardial Infarction 08/2017 "silent"--follows with Dr. Aguiar Sleep apnea CPAP--states she is not currently using Tobacco use Surgical History History of bilateral cataract extraction History of colonoscopy History of esophagogastroduodenoscopy (EGD) last 01/2021 @ [facility] History of left breast biopsy malignant History of lumpectomy of left breast History of tooth extraction all teeth Family History Brother Family hx of colon cancer Other No family history of adverse response to anesthesia Social History Smoking Status: Current every day smoker Tobacco Type: Cigarettes Cigarettes Per Day: 5 a day; Second Hand Exposure: No; Hx Alcohol Use: No Hx Substance Use: No Preferred Language: Luxembourgish Communication Ability: Effective Operations Supervisor 2Nd Shift Required: No Beliefs That Will Affect Care: None Current Living Situation: Alone Feels Safe at Home: Yes Assistive Devices: Walker Allergies Allergies Allergy/AdvReac Type Severity Reaction Status Date / Time Penicillins Allergy Mild Rash Verified 11/02/21 08:27 Home Meds Home Medications Medication Instructions Recorded Confirmed aspirin 81 mg tablet,delayed 81 mg PO QAM 02/10/19 04/23/22 release cholecalciferol (vitamin D3) 50 2,000 unit PO QAM 02/10/19 04/23/22 mcg (2,000 unit) tablet (Vitamin D3) multivitamin 1 tab PO QAM 02/10/19 04/23/22 albuterol sulfate 90 mcg/actuation 2 puff inhalation Q6H PRN 06/06/19 04/23/22 aerosol inhaler (ProAir HFA) Shortness Of Breath vitamins A,C,R-jxen-mlfibd 2,148 1 tab PO QAM 06/06/19 04/23/22 mcg-113 mg-45 mg-17.4 mg tablet (PreserVision AREDS) alprazolam 0.5 mg tablet 0.5 mg PO BID PRN Anxiety 10/16/20 04/23/22 mirtazapine 15 mg tablet 22.5 mg PO HS 10/26/21 04/23/22 trazodone 50 mg tablet 25 mg PO HS 10/26/21 04/23/22 buspirone 10 mg tablet 10 mg PO BID 04/05/22 04/23/22 ferrous sulfate 325 mg (65 mg 325 mg PO BID 04/05/22 04/23/22 iron) tablet Previous Rx's Medication Instructions Recorded omeprazole 40 mg capsule,delayed 40 mg PO BID #180 caps 01/19/21 release Results & Data (ED) Vital Signs Vital Signs - 24 hr 04/23/22 16:41 04/23/22 16:41 04/23/22 17:07 Temperature 36.5 C Temperature Source Oral Pulse Rate 96 H Pulse Rate from SpO2 Sensor Respiratory Rate 24 Respiratory Effort / Characteristics Non-Labored Spontaneous Respiratory Depth Normal Respiratory Pattern Regular Blood Pressure 102/51 L Blood Pressure Mean 68 Blood Pressure Position Sitting Pulse Oximetry 98 Oxygen Delivery Method Room Air Room Air Room Air Sepsis Recent Fever Within 48 Hours No Sepsis New/Unexplained Change in Mental Status No Sepsis Action Taken by Nursing No Action Required 04/23/22 16:42 04/23/22 16:50 04/23/22 17:00 Temperature Temperature Source Pulse Rate 96 H 89 Pulse Rate from SpO2 Sensor 96 H 90 Respiratory Rate 26 H 29 H Respiratory Effort / Characteristics Respiratory Depth Respiratory Pattern Blood Pressure 104/59 L Blood Pressure Mean 74 Blood Pressure Position Pulse Oximetry 98 99 Oxygen Delivery Method Room Air Room Air Room Air Sepsis Recent Fever Within 48 Hours Sepsis New/Unexplained Change in Mental Status Sepsis Action Taken by Nursing 04/23/22 17:00 04/23/22 17:10 04/23/22 17:20 Temperature Temperature Source Pulse Rate 93 H 99 H 105 H Pulse Rate from SpO2 Sensor 93 H 99 H Respiratory Rate 24 31 H 32 H Respiratory Effort / Characteristics Respiratory Depth Respiratory Pattern Blood Pressure Blood Pressure Mean Blood Pressure Position Pulse Oximetry 93 99 Oxygen Delivery Method Room Air Room Air Room Air Sepsis Recent Fever Within 48 Hours Sepsis New/Unexplained Change in Mental Status Sepsis Action Taken by Nursing 04/23/22 17:30 04/23/22 17:30 04/23/22 17:40 Temperature Temperature Source Pulse Rate 104 H 92 H Pulse Rate from SpO2 Sensor Respiratory Rate 33 H 35 H Respiratory Effort / Characteristics Respiratory Depth Respiratory Pattern Blood Pressure 112/80 Blood Pressure Mean 90 Blood Pressure Position Pulse Oximetry Oxygen Delivery Method Room Air Room Air Room Air Sepsis Recent Fever Within 48 Hours Sepsis New/Unexplained Change in Mental Status Sepsis Action Taken by Nursing 04/23/22 17:50 04/23/22 18:00 04/23/22 18:10 Temperature Temperature Source Pulse Rate 89 93 H 85 Pulse Rate from SpO2 Sensor Respiratory Rate 33 H 35 H 34 H Respiratory Effort / Characteristics Respiratory Depth Respiratory Pattern Blood Pressure Blood Pressure Mean Blood Pressure Position Pulse Oximetry Oxygen Delivery Method Room Air Room Air Room Air Sepsis Recent Fever Within 48 Hours Sepsis New/Unexplained Change in Mental Status Sepsis Action Taken by Nursing 04/23/22 18:20 Temperature Temperature Source Pulse Rate 96 H Pulse Rate from SpO2 Sensor Respiratory Rate 22 Respiratory Effort / Characteristics Respiratory Depth Respiratory Pattern Blood Pressure Blood Pressure Mean Blood Pressure Position Pulse Oximetry Oxygen Delivery Method Room Air Sepsis Recent Fever Within 48 Hours Sepsis New/Unexplained Change in Mental Status Sepsis Action Taken by Halfway Medications Current Medication List: was personally reviewed by me Laboratory Data Attestation: I reviewed the patient's lab results. Result diagrams: 04/23/22 18:29 04/23/22 18:29 Lab Results 04/23/22 Range/Units 17:15 SARS-CoV-2, RNA, NAAT POSITIVE A* (NEGATIVE) Administered Medications Discontinued Medications Sodium Chloride (Nss) 500 mls @ 999 mls/hr IV .Q31M MOLLY Stop: 04/23/22 18:00 Last Infusion: 04/23/22 19:04 Dose: 0 mls/hr Documented By: Admin: 04/23/22 18:31 Dose: 999 mls/hr Documented By: PARIS Discharge Plan Visit Data Chief Complaint: Weakness ED Provider: Campos Paris Discharge Problem: Bilateral leg weakness, COVID-19, Acute dehydration Patient Disposition: Home - Self-Care
[2022-04-23] MEDS ORDERED: SODIUM CHLORIDE 0.9% 500 ML IV SCH (17:30)
[2022-04-23 18:39] LABS: Basophils # (auto) 0.02 K/uL (0-0.2); Basophils % (auto) 0.1 %; Eosinophils # (auto) 0.08 K/uL (0-0.50); Eosinophils % (auto) 0.6 %; Hematocrit (blood only) 40.7 % (34.1-44.9); Immature Granulocytes % (auto) 0.7 %; Lymphocytes # (auto) 1.63 K/uL (1.2-3.4); Lymphocytes % (auto) 11.7 %; Mean Corpuscular Hemoglobin 29.9 pg (25.0-34.0); Mean Corpuscular Hgb Conc 31.9 g/dL (32.0-36.0); Mean Corpuscular Volume 93.6 fL (80.0-100.0); Mean Platelet Volume 10.2 fL (9.4-12.3); Monocytes # (auto) 0.75 K/uL (0.24-0.82); Monocytes % (auto) 5.4 %; Neutrophils # (auto) 11.36 K/uL (1.4-6.5); Neutrophils % (auto) 81.5 %; Platelet Count 317 K/uL (130-400); RDW Coefficient of Variation 13.5 % (11.5-14.5); RDW Standard Deviation 45.7 fL (36.4-46.3); Red Blood Count 4.35 M/uL (3.93-5.22); White Blood Count 13.94 K/ul (4.8-10.8)
--- NOTE | 2022-04-23 18:42 | History & Physical Report ---
Date of Service April 23, 2022 Assessment & Plan (1) Bilateral leg weakness: (2) History of airway aspiration: (3) Leukocytosis: (4) Memory loss: (5) COVID-19: (6) CKD (chronic kidney disease), stage III: (7) Sleep apnea: (8) Anxiety: (9) Depression: Plan This is an 81 y/o F with PMH CAD, DM II, COPD, CKD III, anxiety, SILVIA, tobacco use presented to ER with increasing weakness and him ability to participate in therapy at home. Was recently admitted 17 days for UTI, COVID-pneumonia and generalized weakness and discharged home 2 days ago with home health. Per family, is unable to participate in home PT and they are having difficulty caring for her due to increased weakness. Family desires her to be placed at [facility] for additional treatment. Generalized weakness In setting of recent covid 19, UTI Unable to fully participate in home PT/OT Family requesting placement at [facility] Fall precautions. PT/OT eval Recent COVID-19 Completed Remdesivir Course on previous admission. Saturation well on room air CXR today with There is a decreased inspiratory effort with otherwise no acute chest disease. Aspiration/Dysphagia Video Swallow on previous admission:Penetration and trace silent aspiration along with vallecula retention Initially failed swallow eval Continue Pureed diet with aspiration precautions, assistance with feeding for meals Recent UTI Urine culture: Enterococcus on previous admission. Completed antibiotic course History of BPPV (benign paroxysmal positional vertigo) Fall precautions, Meclizine prn Memory loss As per Prior Provider No aggressiveness Pleasantly confused and getting agitated at times At mentation baseline CAD (coronary artery disease) Continue aspirin History of Sinus Bradycardia Mostly noted while asleep Avoid AV rachana blocking agents Monitor Diabetes mellitus, type II A1c: 5.5 on 02/2022 Monitor BSG, diabetic diet Novolog correction only at this time Tobacco use Ssmoking cessation advised CKD (chronic kidney disease), stage III Cr at baseline Monitor renal functions, avoid nephrotoxic agents when possible DVT Ppx: SQ heparin Code status: DNR/DNI PCP: Ezequiel Dispo: Obs med/surg History of Present Illness Chief Complaint: Family desiring placement, generalized weakness Primary Care Provider: Bandar Nieves MD This is an 81 y/o F with PMH CAD, DM II, COPD, CKD III, anxiety, SILVIA, tobacco use presented to ER with increasing weakness and him ability to participate in therapy at home. Was recently admitted 17 days for UTI, COVID-pneumonia and generalized weakness and discharged home 2 days ago with home health. Per family, is unable to participate in home PT and they are having difficulty caring for her due to increased weakness. Family desires her to be placed at [facility] for additional treatment. Patient has leg weakness which is been ongoing and persistent as well as nonproductive chronic cough in the setting of tobacco use. During recent admission, patient found to be aspirated and placed on pured diet with aspiration precautions. Patient pleasantly confused but at mentation baseline. Repeating "I just want to go home" during interview. ROS unobtainable 2/2 cognitive state. Allergies Allergy/AdvReac Type Severity Reaction Status Date / Time Penicillins Allergy Mild Rash Verified 11/02/21 08:27 Home Medications Medication Instructions Recorded Confirmed Type aspirin 81 mg tablet,delayed 81 mg PO QAM 02/10/19 04/23/22 History release cholecalciferol (vitamin D3) 50 2,000 unit PO QAM 02/10/19 04/23/22 History mcg (2,000 unit) tablet (Vitamin D3) multivitamin 1 tab PO QAM 02/10/19 04/23/22 History albuterol sulfate 90 mcg/actuation 2 puff inhalation Q6H PRN 06/06/19 04/23/22 History aerosol inhaler (ProAir HFA) Shortness Of Breath vitamins A,C,K-mhiv-dezodu 2,148 1 tab PO QAM 06/06/19 04/23/22 History mcg-113 mg-45 mg-17.4 mg tablet (PreserVision AREDS) alprazolam 0.5 mg tablet 0.5 mg PO BID PRN Anxiety 10/16/20 04/23/22 History omeprazole 40 mg capsule,delayed 40 mg PO BID #180 caps 01/19/21 04/23/22 Rx release mirtazapine 15 mg tablet 22.5 mg PO HS 10/26/21 04/23/22 History trazodone 50 mg tablet 25 mg PO HS 10/26/21 04/23/22 History buspirone 10 mg tablet 10 mg PO BID 04/05/22 04/23/22 History ferrous sulfate 325 mg (65 mg 325 mg PO BID 04/05/22 04/23/22 History iron) tablet Past Med/Surg History Medical History Anxiety Bronchiectasis CAD (coronary artery disease) Cancer of left breast 2005--sx, chemo, radiation CKD (chronic kidney disease), stage III COPD (chronic obstructive pulmonary disease) inhaler prn Depression Esophageal ulcer dx 10/2020 GERD (gastroesophageal reflux disease) Hyperlipidemia Myocardial Infarction 08/2017 "silent"--follows with Dr. Aguiar Sleep apnea CPAP--states she is not currently using Tobacco use Surgical History History of bilateral cataract extraction History of colonoscopy History of esophagogastroduodenoscopy (EGD) last 01/2021 @ [facility] History of left breast biopsy malignant History of lumpectomy of left breast History of tooth extraction all teeth Family History Brother Family hx of colon cancer Other No family history of adverse response to anesthesia Social History Smoking Status: Current every day smoker Tobacco Type: Cigarettes Cigarettes Per Day: 5 a day; Second Hand Exposure: No; Do You Dip or Chew Tobacco: No; Tobacco Cessation Education Requested by Patient: No Hx Alcohol Use: No Hx Substance Use: No Preferred Language: [place] Communication Ability: Effective [employer] Advisor Required: No Beliefs That Will Affect Care: None Current Living Situation: Alone Other Information That Helps Us Care for You: No Feels Safe at Home: Yes Safety Concerns: Feels Safe At This Time Assistive Devices: Bedside Commode and Walker Review of Systems Review of Systems: Unobtainable due to cognitive status Physical Exam Physical Exam: General Appearance: WD/WN, vitals as above, elderly, frail, confused Head: normocephalic, atraumatic Eyes: normal inspection, PERRL, conjunctivae normal, anicteric sclerae ENT: external ear and nose normal, oropharynx normal Neck: normal visual inspection, trachea midline, no thyromegaly Respiratory: normal respiratory effort, diminished lung sounds bilaterally, no wheeze, rales, rhonchi Cardiovascular: regular rate, rhythm, no murmur, normal peripheral pulses, no BLE edema. Vessels: no JVD Chest: normal inspection of chest Abdomen/GI: normal bowel sounds, soft, nontender, no hepatosplenomegaly Extremities/Musculoskeletal: no cyanosis or clubbing, extremities motor strength 5/5 Neurologic: PERRL, EOMI, accommodation nl, no face palsy, no dysarthria, CN's II-XI intact bilaterally and moves all extremities Psychiatric: A+Ox person and place, anxious Skin: no rashes, normal color, warm/dry Results & Data Results & Data ([facility]) Vital Signs (Past 12 Hours) Vital Signs Temp Pulse Resp BP Pulse Ox O2 Del Method 04/23/22 17:07 Room Air 04/23/22 16:41 Room Air 04/23/22 16:41 36.5 C 96 H 24 102/51 L 98 Room Air Laboratory Results Short CBC 04/23/22 Range/Units 18:29 WBC 13.94 H (4.8-10.8) K/ul Hgb 13.0 (12.0-16.0) g/dl Hct 40.7 (34.1-44.9) % Plt Count 317 (130-400) K/uL Supervising Physician Co-Signing Physician Notes delayed entry date of service noted above Attending Addendum: care coordinated with LUCINDA Ma please refer to her notes for full details, I agree with her notes patient seen and examined, records reviewed by myself as well on exam, patient seen resting in bed, sitting up comfortable, not in distress, conversant, answers most questions appropriately no chest pain, dyspnea, palpitations, dizziness diagnoses and plan of care as per LUCINDA Ma's notes Sunil Ruiz MD
[2022-04-23 19:09] LABS: Albumin Level 3.1 gm/dl (3.4-5.0); BUN Creatinine Ratio 30.1 (10-20); Bilirubin,Total 0.6 mg/dl (0.2-1.0); Calcium 8.7 mg/dl (8.5-10.1); Creatinine Clr Calc Pharmacy 34.2 ml/min; Est GFR (African American) 52.4 ml/min; Est GFR (Non-African American) 45.2 ml/min; Potassium 3.5 mmol/L (3.5-5.1); Total Protein 6.1 gm/dl (6.0-8.3)
--- NOTE | 2022-04-23 19:55 | XRay Report ---
XR chest 1V portable CLINICAL HISTORY: leukocytosis. Evaluate cardiopulmonary status COMPARISON STUDY: 04/12/2022 TECHNIQUE: 1 view of the chest FINDINGS: Single frontal view of the chest demonstrates the heart to again be prominent in size related to the patient's decreased inspiration. There is a decreased inspiratory effort with elevation of the hemidi aphragms and crowding of the bronchovascular markings at the lung bases and centrally. The lungs are clear of alveolar opacities. There is no evidence for pleural effusion. There is no evidence for vasc ular congestion. There is no acute osseous pathology. IMPRESSION: 1. There is a decreased inspiratory effort with otherwise no acute chest disease. ACT 112: Negative or not required by law. Electronically signed by: Jerry Mota M.D. 04/23/2022 7:54 PM
--- NOTE | 2022-04-23 20:50 | Communication Note ---
Date of Service: April 23, 2022 Attending Addendum: care coordinated with LUCINDA Ma please refer to her notes for full details, I agree with her notes patient seen and examined, records reviewed by myself as well on exam, patient seen sitting up in bed, comfortable, caregiver at the bedside Denies shortness of breath, cough, chest pain Noted by caregiver the patient has been very weak, and they are unable to take care of the patient at home no other symptoms VS noted and reviewed oriented x2, not in distress, speaks in sentences with no effort nor accessory muscle use normal rate, regular rhythm, no murmurs clear breath sounds bilaterally non distended, soft, nontender no bipedal edema, erythema, warmth no neuro deficits All labs noted and reviewed ASSESSMENT AND PLAN Generalized weakness, deconditioning, recent COVID-pneumonia Repeat chest x-ray:1. There is a decreased inspiratory effort with otherwise no acute chest disease. States his breathing is fine PT and OT evaluation Patient's family requesting to transition to [facility] next other diagnoses and plan of care as per LUCINDA Ma's notes Sunil Ruiz MD
[2022-04-23] MEDS ORDERED: GLUCOSE 10 TAB/TUBE PO PRN (22:54)
[2022-04-23] MEDS ORDERED: GLUCOSE 40% GEL 15 GM TUBE PO PRN (22:54)
[2022-04-23] MEDS ORDERED: GLUCAGON FOR INJ 1 MG VIAL SQ PRN (22:54)
[2022-04-23] MEDS ORDERED: DEXTROSE 50% 50 ML SYRINGE IV PRN (22:54)
[2022-04-23] MEDS ORDERED: POLYETHYLENE (MIRALAX) 17 GM PACK PO PRN (23:02)
[2022-04-23] MEDS ORDERED: ALBUTEROL HFA 8 GM INHALER INH PRN (23:02)
[2022-04-23] MEDS ORDERED: ONDANSETRON INJ 2 MG/ML 2 ML VIAL IV PRN (23:02)
[2022-04-23] MEDS ORDERED: ALPRAZolam 0.5 MG TABLET PO PRN (23:02)
[2022-04-24] MEDS: traZODone HCL 50 MG TAB PO SCH ×2 (00:06→21:44)
[2022-04-24] MEDS: FERROUS SULFATE 325 MG TAB PO SCH ×3 (00:06→21:46)
[2022-04-24] MEDS: busPIRone 5 MG TAB PO SCH ×3 (00:06→21:47)
[2022-04-24] MEDS: MIRTAZAPINE TAB 15 MG TAB PO SCH ×2 (00:07→21:46)
[2022-04-24] MEDS: PANTOprazole 40 MG TAB PO SCH ×3 (00:07→21:45)
[2022-04-24] MEDS: INSULIN ASPART PER UNIT SC SCH ×4 (00:48→17:23)
[2022-04-24 07:15] LABS: Hematocrit (blood only) 35.8 % (34.1-44.9); Hemoglobin 11.4 g/dl (12.0-16.0); Mean Corpuscular Hgb Conc 31.8 g/dL (32.0-36.0); Mean Corpuscular Volume 94.2 fL (80.0-100.0); Mean Platelet Volume 10.4 fL (9.4-12.3); Platelet Count 228 K/uL (130-400); RDW Coefficient of Variation 13.8 % (11.5-14.5); RDW Standard Deviation 46.5 fL (36.4-46.3); White Blood Count 10.01 K/ul (4.8-10.8)
[2022-04-24] MEDS ORDERED: INSULIN ASPART PER UNIT SC SCH (07:30)
[2022-04-24 07:49] LABS: BUN Creatinine Ratio 30.9 (10-20); Calcium 8.1 mg/dl (8.5-10.1); Creatinine Clr Calc Pharmacy 39.8 ml/min; Est GFR (Non-African American) 54.4 ml/min; Potassium 3.7 mmol/L (3.5-5.1)
[2022-04-24] MEDS: CEROVITE ADV FORMULA TAB PO SCH (08:31)
[2022-04-24] MEDS: MULTIVITAMIN TAB PO SCH (08:31)
[2022-04-24] MEDS: HEPARIN SOD 5,000 UNIT/0.5 ML VIAL SQ SCH ×2 (08:31→21:45)
[2022-04-24] MEDS: CHOLECALCIFEROL 1,000 UNITS 25 MCG TAB PO SCH (08:31)
[2022-04-24] MEDS: ASPIRIN 81 MG ECTAB PO SCH (08:32)
--- NOTE | 2022-04-24 09:19 | Electrocardiogram Report ---
Test Reason : Blood Pressure : / mmHG Vent. Rate : 098 BPM Atrial Rate : 098 BPM P-R Int : 152 ms QRS Dur : 078 ms QT Int : 340 ms P-R-T Axes : 017 -04 -19 degrees QTc Int : 434 ms Poor data quality, interpretation may be adversely affected Sinus rhythm with occasional Premature ventricular complexes Nonspecific T wave abnormality Abnormal ECG When compared with ECG of 16-APR-2022 13:11, Premature supraventricular complexes are no longer Present Nonspecific T wave abnormality, worse in Inferior leads Nonspecific T wave abnormality now evident in Anterolateral leads Confirmed by Mark Garcia ([id number]) on 04/24/2022 9:19:23 AM Referred By: REFERRED SELF Confirmed By:Mark Garcia
--- NOTE | 2022-04-24 15:43 | Hospitalist Progress Note ---
Date of Service April 24, 2022 Assessment & Plan (1) Bilateral leg weakness: (2) History of airway aspiration: (3) Leukocytosis: (4) Memory loss: (5) COVID-19: (6) CKD (chronic kidney disease), stage III: (7) Sleep apnea: (8) Anxiety: (9) Depression: Plan This is an 81 y/o F with PMH CAD, DM II, COPD, CKD III, anxiety, SILVIA, tobacco use presented to ER with increasing weakness and him ability to participate in therapy at home. Was recently admitted 17 days for UTI, COVID-pneumonia and generalized weakness and discharged home 2 days ago with home health. Per family, is unable to participate in home PT and they are having difficulty caring for her due to increased weakness. Family desires her to be placed at [facility] for additional treatment. Generalized weakness In setting of recent covid 19, UTI Unable to fully participate in home PT/OT Family requesting placement at [facility] Fall precautions. PT/OT eval CM working on placement for rehab Recent COVID-19 Completed Remdesivir Course on previous admission. Saturation well on room air CXR: There is a decreased inspiratory effort with otherwise no acute chest disease. Aspiration/Dysphagia Video Swallow on previous admission:Penetration and trace silent aspiration along with vallecula retention Initially failed swallow eval Continue Pureed diet with aspiration precautions, assistance with feeding for meals Recent UTI Urine culture: Enterococcus on previous admission. Completed antibiotic course History of BPPV (benign paroxysmal positional vertigo) Fall precautions, Meclizine prn Memory loss As per Prior Provider No aggressiveness Pleasantly confused and getting agitated at times At mentation baseline CAD (coronary artery disease) Continue aspirin History of Sinus Bradycardia Mostly noted while asleep Avoid AV rachana blocking agents Monitor Diabetes mellitus, type II A1c: 5.7 on 04/09/22 Monitor BSG, diabetic diet Novolog correction only at this time BSG on lower side, will liberalize novolog scale and discontinue carb correction in setting of well controlled t2dm Tobacco use Smoking cessation advised CKD (chronic kidney disease), stage III Cr at baseline Monitor renal functions, avoid nephrotoxic agents when possible DVT Ppx: SQ heparin Code status: DNR/DNI PCP: Ezequiel Dispo:med/surg, awaiting placement for rehab Pt was seen and examined in collaboration with Dr. Dickey, please see addendum Admission and Anticipated Discharge Date Admission Date: April 23, 2022 Supervising Physician Co-Signing Physician Notes Patient is seen and examined at bedside. States feeling tired, has mild cough. Reports minimal back pain with movement. Physical Exam: Vitals signs as noted above General Appearance: Chronically appearing, thin, frail, elderly, no apparent distress Head: normocephalic, Atraumatic Eyes: normal inspection, EOMI Neck: supple, Trachea midline Respiratory/Chest: Decreased breath sounds, CTA, No accessory muscle use Cardiovascular: S1, S2, No murmur Abdomen/GI:Soft, Non tender, Bowel sounds present Extremities/Musculoskeletal:normal inspection, no edema Neurologic/Psych:AAOX3, grossly no focal neurological deficits,+ hearing impairment Skin: normal color, warm Generalized weakness Recent COVID-19 infection Dysphagia DM II Continue PT OT Fall precautions May need placement Continue pured diet Agree with liberalizing insulin to prevent hypoglycemic episodes Monitor BGs closely I personally reviewed the record. Patient is interviewed and examined at bedside. Patient's care is coordinated with Teodora Zaldivar PA-C. Please refer to the documentation above for details of patient's presentation and for discussion of other issues. Subjective Patient was seen and examined in room A4B as an ER hold. Follow up weakness, fatigue and recent covid-19 infection. She complains of being extremely tired and R sided neck pain. Pain just started and is not radiating. Appears to be situational. Denies f/c/s, chest pain, sob, cough, uri sx, n/v/d. She just worked with therapy as I was entering room and was able to get repositioned in bed. She states she has caregivers at home 24hrs/day. Review of Systems Review of Systems: All systems reviewed & are unremarkable except as noted in HPI & below Physical Exam Physical Exam: Gen: Elderly, Petite, F, lying in bed, NAD, A&O x3 to basics HEENT: Normocephalic, atraumatic, conjunctivae moist, sclerae anicteric, mucous membranes moist. Lung: Clear to Auscultation bilaterally, no wheezes/rales/rhonchi Heart: Regular rate, regular rhythm, no murmurs, rubs, or gallops Abdomen: Soft, NT, ND +BS x 4 Extremities: No edema Skin: Warm, no rash, negative turgor. Results & Data Results & Data ([facility]) Vital Signs (Past 12 Hours) Vital Signs Temp Pulse Pulse Resp BP BP Pulse Ox 04/24/22 12:00 36.9 C 78 18 111/50 L 98 04/24/22 10:22 101 H 16 04/24/22 10:10 95 H 18 95 04/24/22 10:01 91/55 L 04/24/22 10:01 72 29 H 96 04/24/22 10:13 04/24/22 09:30 82 18 95 04/24/22 09:30 107/68 04/24/22 08:30 78 12 95 04/24/22 08:30 115/62 04/24/22 08:00 60 13 96 04/24/22 08:00 129/64 04/24/22 07:30 54 L 16 98 04/24/22 07:30 123/61 04/24/22 06:30 52 L 19 98 04/24/22 06:30 105/50 L 04/24/22 09:34 37.1 C 82 20 115/62 96 04/24/22 06:00 57 L 18 120/51 L 98 04/24/22 05:30 61 16 100/46 L 97 04/24/22 04:00 60 24 117/62 99 O2 Del Method 04/24/22 12:00 Room Air 04/24/22 10:22 04/24/22 10:10 04/24/22 10:01 04/24/22 10:01 04/24/22 10:13 Room Air 04/24/22 09:30 04/24/22 09:30 04/24/22 08:30 04/24/22 08:30 04/24/22 08:00 04/24/22 08:00 04/24/22 07:30 04/24/22 07:30 04/24/22 06:30 04/24/22 06:30 04/24/22 09:34 Room Air 04/24/22 06:00 04/24/22 05:30 04/24/22 04:00 Laboratory Results Short CBC 04/23/22 04/24/22 Range/Units 18:29 06:56 WBC 13.94 H 10.01 (4.8-10.8) K/ul Hgb 13.0 11.4 L (12.0-16.0) g/dl Hct 40.7 35.8 (34.1-44.9) % Plt Count 317 228 (130-400) K/uL BMP 04/23/22 04/24/22 18:29 06:56 Sodium 141 143 Potassium 3.5 3.7 Chloride 108 H 112 H Carbon Dioxide 25 25 BUN 34 H 30 H Creatinine 1.13 0.97 Glucose 153 H 85 Calcium 8.7 8.1 L Liver Function 04/23/22 Range/Units 18:29 Total Bilirubin 0.6 (0.2-1.0) mg/dl AST 11 L (13-39) U/L ALT 8 (7-52) U/L Alkaline Phosphatase 53 (34-104) U/L Albumin 3.1 L (3.4-5.0) gm/dl Medications Administered Current Inpatient Medications Acetaminophen (Acetaminophen 325 Mg Tab) 650 mg PO Q4H PRN PRN Reason: pain/fever Stop: 05/23/22 23:01 Albuterol (Albuterol Hfa 8 Gm Inhaler) 2 puffs INH Q6H PRN PRN Reason: Shortness Of Breath Stop: 05/23/22 23:01 Alprazolam (Alprazolam 0.5 Mg Tablet) 0.5 mg PO BID PRN PRN Reason: Anxiety Stop: 05/23/22 23:01 Aspirin (Aspirin 81 Mg Ectab) 81 mg PO QAM [facility] Stop: 05/24/22 08:59 Last Admin: 04/24/22 08:32 Dose: 81 mg Buspirone HCl (Buspirone 5 Mg Tab) 10 mg PO BID [facility] Stop: 05/23/22 23:01 Last Admin: 04/24/22 08:31 Dose: 10 mg Dextrose (Dextrose 50% 50 Ml Syringe) 25 - 50 ml IV UD PRN; Protocol PRN Reason: Hypoglycemia Protocol Stop: 05/23/22 22:53 Ferrous Sulfate (Ferrous Sulfate 325 Mg Tab) 325 mg PO BID [facility] Stop: 05/23/22 23:01 Last Admin: 04/24/22 08:32 Dose: 325 mg Glucagon (Glucagon For Inj 1 Mg Vial) 1 mg SQ UD PRN; Protocol PRN Reason: Hypoglycemia Protocol Stop: 05/23/22 22:53 Glucose (Glucose 40% Gel 15 Gm Tube) 15 - 30 gm PO UD PRN; Protocol PRN Reason: Hypoglycemia Protocol Stop: 05/23/22 22:53 Glucose (Glucose 10 Tab/Tube) 4 - 8 tab PO UD PRN; Protocol PRN Reason: Hypoglycemia Treatment Stop: 05/23/22 22:53 Heparin Sodium (Porcine) (Heparin Sod 5,000 Unit/0.5 Ml Vial) 5,000 units SQ Q12 [facility] Stop: 05/24/22 08:59 Last Admin: 04/24/22 08:31 Dose: 5,000 units Insulin Aspart (Insulin Aspart Per Unit) 0 units SC ACHS [facility] Stop: 05/23/22 22:59 Last Admin: 04/24/22 13:04 Dose: Not Given Mirtazapine (Mirtazapine Tab 15 Mg Tab) 22.5 mg PO HS [facility] Stop: 05/23/22 23:01 Last Admin: 04/24/22 00:07 Dose: 22.5 mg Miscellaneous (Carbohydrates For Hypoglycemia ) 15 - 30 gm PO UD PRN PRN Reason: Hypoglycemia Protocol Stop: 05/23/22 22:53 Multivitamins (Multivitamin Tab) 1 tab PO QAM [facility] Stop: 05/24/22 08:59 Last Admin: 04/24/22 08:31 Dose: 1 tab Multivitamins/Minerals (Cerovite Adv Formula Tab) 1 tab PO QAM [facility] Stop: 05/24/22 08:59 Last Admin: 04/24/22 08:31 Dose: 1 tab Ondansetron HCl (Ondansetron Inj 2 Mg/Ml 2 Ml Vial) 4 mg IV Q6H PRN PRN Reason: Nausea Stop: 05/23/22 23:01 Pantoprazole Sodium (Pantoprazole 40 Mg Tab) 40 mg PO BID [facility] Stop: 05/23/22 23:01 Last Admin: 04/24/22 08:31 Dose: 40 mg Polyethylene Glycol (Polyethylene (Miralax) 17 Gm Pack) 17 gm PO DAILY PRN PRN Reason: Constipation Stop: 05/23/22 23:01 Trazodone HCl (Trazodone Hcl 50 Mg Tab) 25 mg PO HS [facility] Stop: 05/23/22 23:01 Last Admin: 04/24/22 00:06 Dose: 25 mg Vitamin D (Cholecalciferol 1,000 Units 25 Mcg Tab) 2,000 units PO QAM [facility] Stop: 05/24/22 08:59 Last Admin: 04/24/22 08:31 Dose: 2,000 units
[2022-04-24] MEDS: CARBOHYDRATES FOR HYPOGLYCEMIA PO PRN ×2 (17:22→17:37)
[2022-04-25 07:35] LABS: BUN Creatinine Ratio 26.7 (10-20); Calcium 8.2 mg/dl (8.5-10.1); Creatinine Clr Calc Pharmacy 38.2 ml/min; Est GFR (Non-African American) 51.8 ml/min; Potassium 4.1 mmol/L (3.5-5.1)
[2022-04-25 09:47] LABS: Hematocrit (blood only) 38.8 % (34.1-44.9); Hemoglobin 11.9 g/dl (12.0-16.0); Mean Corpuscular Hemoglobin 30.2 pg (25.0-34.0); Mean Corpuscular Hgb Conc 30.7 g/dL (32.0-36.0); Mean Corpuscular Volume 98.5 fL (80.0-100.0); Mean Platelet Volume 11.4 fL (9.4-12.3); Platelet Count 184 K/uL (130-400); RDW Coefficient of Variation 14.1 % (11.5-14.5); RDW Standard Deviation 50.7 fL (36.4-46.3); Red Blood Count 3.94 M/uL (3.93-5.22); White Blood Count 9.06 K/ul (4.8-10.8)
--- NOTE | 2022-04-25 10:50 | Hospitalist Progress Note ---
Date of Service April 25, 2022 Assessment & Plan (1) Bilateral leg weakness: (2) History of airway aspiration: (3) Leukocytosis: (4) Memory loss: (5) COVID-19: (6) CKD (chronic kidney disease), stage III: (7) Sleep apnea: (8) Anxiety: (9) Depression: Plan This is an 81 y/o F with PMH CAD, DM II, COPD, CKD III, anxiety, SILVIA, tobacco use presented to ER with increasing weakness and him ability to participate in therapy at home. Was recently admitted 17 days for UTI, COVID-pneumonia and generalized weakness and discharged home 2 days ago with home health. Per family, is unable to participate in home PT and they are having difficulty caring for her due to increased weakness. Family desires her to be placed at [facility], [place] for additional treatment. Generalized weakness In setting of recent covid 19, UTI Unable to fully participate in home PT/OT Family requesting placement at [facility], [place] Fall precautions. PT/OT eval CM working on placement for rehab Low back pain, L conservative tx with heat, lidoderm patch continue work with PT Recent COVID-19 Completed Remdesivir Course on previous admission. Saturation well on room air CXR: There is a decreased inspiratory effort with otherwise no acute chest disease. Aspiration/Dysphagia Video Swallow on previous admission:Penetration and trace silent aspiration along with vallecula retention Initially failed swallow eval Continue Pureed diet with aspiration precautions, assistance with feeding for meals Recent UTI Urine culture: Enterococcus on previous admission. Completed antibiotic course History of BPPV (benign paroxysmal positional vertigo) Fall precautions, Meclizine prn Memory loss As per Prior Provider No aggressiveness Pleasantly confused and getting agitated at times At mentation baseline CAD (coronary artery disease) Continue aspirin History of Sinus Bradycardia Mostly noted while asleep Avoid AV rachana blocking agents Monitor Diabetes mellitus, type II A1c: 5.7 on 04/09/22 Monitor BSG, diabetic diet Novolog correction only at this time Pt with episodes of hypoglycemia yes Novolog scale was liberalized yesterday and then discontinued due to poor PO intake will continue to monitor bsg for now w/o coverage Tobacco use Smoking cessation advised CKD (chronic kidney disease), stage III Cr at baseline Monitor renal functions, avoid nephrotoxic agents when possible DVT Ppx: SQ heparin Code status: DNR/DNI PCP: Ezequiel Dispo:med/surg, Pt medically stable for discharge, awaiting placement for rehab Pt was seen and examined in collaboration with Dr. Dickey, please see addendum Admission and Anticipated Discharge Date Admission Date: April 24, 2022 Supervising Physician Co-Signing Physician Notes Patient is seen and examined at bedside. States having back pain today. No oth er complaints. Physical Exam: Vitals signs as noted above General Appearance: Chronically appearing, thin, frail, elderly, no apparent distress Head: normocephalic, Atraumatic Eyes: normal inspection, EOMI Neck: supple, Trachea midline Respiratory/Chest: Decreased breath sounds, CTA, No accessory muscle use Cardiovascular: S1, S2, No murmur Abdomen/GI:Soft, Non tender, Bowel sounds present Extremities/Musculoskeletal:normal inspection, no edema Neurologic/Psych:AAOX3, grossly no focal neurological deficits,+ hearing impairment Skin: normal color, warm Generalized weakness Recent COVID-19 infection Dysphagia Dehydration Mild malnutrition DM II Lumbago Continue PT OT Fall precautions May need placement Tolerating pured diet Agree with liberalizing insulin to prevent hypoglycemic episodes Monitor BGs closely Consider imaging studies if back pain does not improve with conservative management I personally reviewed the record. Patient is interviewed and examined at bedside. Patient's care is coordinated with Teodora Zaldivar PA-C. Please refer to the documentation above for details of patient's presentation and for discussion of other issues. Subjective Patient was seen and examined in room 317-1. Follow up weakness, fatigue and recent covid-19 infection. She states that she is not doing well this morning. She complains of left-sided low back pain. Pain is nonradiating, described as a dull ache and seems to be worse with movement. Overall appetite is poor. She states that she is thirsty and requesting water. Overall not eating much due to lack of appetite. Boost shakes were ordered for her yesterday and she states that she does not like them. Review of Systems Review of Systems: All systems reviewed & are unremarkable except as noted in HPI & below Physical Exam Physical Exam: Gen: Elderly, Petite, F, lying in bed, NAD, A&O x3 to basics HEENT: Normocephalic, atraumatic, conjunctivae moist, sclerae anicteric, mucous membranes moist. Lung: Clear to Auscultation bilaterally, no wheezes/rales/rhonchi Heart: Regular rate, regular rhythm, no murmurs, rubs, or gallops Abdomen: Soft, NT, ND +BS x 4 Extremities: No edema Skin: Warm, no rash, negative turgor. Results & Data Results & Data ([facility] [place]) Vital Signs (Past 12 Hours) Vital Signs Temp Pulse Resp BP Pulse Ox 04/25/22 07:48 36.6 C 67 16 119/74 97 Laboratory Results Short CBC 04/25/22 Range/Units 06:53 WBC 9.06 (4.8-10.8) K/ul Hgb 11.9 L (12.0-16.0) g/dl Hct 38.8 (34.1-44.9) % Plt Count 184 (130-400) K/uL BMP 04/25/22 06:53 Sodium 143 Potassium 4.1 Chloride 112 H Carbon Dioxide 24 BUN 27 H Creatinine 1.01 Glucose 90 Calcium 8.2 L Medications Administered Current Inpatient Medications Acetaminophen (Acetaminophen 325 Mg Tab) 650 mg PO Q4H PRN PRN Reason: pain/fever Stop: 05/23/22 23:01 Albuterol (Albuterol Hfa 8 Gm Inhaler) 2 puffs INH Q6H PRN PRN Reason: Shortness Of Breath Stop: 05/23/22 23:01 Alprazolam (Alprazolam 0.5 Mg Tablet) 0.5 mg PO BID PRN PRN Reason: Anxiety Stop: 05/23/22 23:01 Aspirin (Aspirin 81 Mg Ectab) 81 mg PO QAM [facility] Stop: 05/24/22 08:59 Last Admin: 04/24/22 08:32 Dose: 81 mg Buspirone HCl (Buspirone 5 Mg Tab) 10 mg PO BID [facility] Stop: 05/23/22 23:01 Last Admin: 04/24/22 21:47 Dose: 10 mg Dextrose (Dextrose 50% 50 Ml Syringe) 25 - 50 ml IV UD PRN; Protocol PRN Reason: Hypoglycemia Protocol Stop: 05/23/22 22:53 Ferrous Sulfate (Ferrous Sulfate 325 Mg Tab) 325 mg PO BID [facility] Stop: 05/23/22 23:01 Last Admin: 04/24/22 21:46 Dose: 325 mg Glucagon (Glucagon For Inj 1 Mg Vial) 1 mg SQ UD PRN; Protocol PRN Reason: Hypoglycemia Protocol Stop: 05/23/22 22:53 Glucose (Glucose 40% Gel 15 Gm Tube) 15 - 30 gm PO UD PRN; Protocol PRN Reason: Hypoglycemia Protocol Stop: 05/23/22 22:53 Glucose (Glucose 10 Tab/Tube) 4 - 8 tab PO UD PRN; Protocol PRN Reason: Hypoglycemia Treatment Stop: 05/23/22 22:53 Heparin Sodium (Porcine) (Heparin Sod 5,000 Unit/0.5 Ml Vial) 5,000 units SQ Q12 [facility] Stop: 05/24/22 08:59 Last Admin: 04/24/22 21:45 Dose: 5,000 units Lidocaine (Lidocaine 5% 1 Patch) 1 patch TD QAM [facility] Stop: 05/25/22 10:59 Mirtazapine (Mirtazapine Tab 15 Mg Tab) 22.5 mg PO HS [facility] Stop: 05/23/22 23:01 Last Admin: 04/24/22 21:46 Dose: 22.5 mg Miscellaneous (Carbohydrates For Hypoglycemia ) 15 - 30 gm PO UD PRN PRN Reason: Hypoglycemia Protocol Stop: 05/23/22 22:53 Last Admin: 04/24/22 17:37 Dose: 15 gm Miscellaneous (Remove Lidoderm Patch) 1 each N/A DAILY@2100 [facility] Stop: 05/25/22 20:59 Multivitamins (Multivitamin Tab) 1 tab PO QAM [facility] Stop: 05/24/22 08:59 Last Admin: 04/24/22 08:31 Dose: 1 tab Multivitamins/Minerals (Cerovite Adv Formula Tab) 1 tab PO QAM [facility] Stop: 05/24/22 08:59 Last Admin: 04/24/22 08:31 Dose: 1 tab Ondansetron HCl (Ondansetron Inj 2 Mg/Ml 2 Ml Vial) 4 mg IV Q6H PRN PRN Reason: Nausea Stop: 05/23/22 23:01 Pantoprazole Sodium (Pantoprazole 40 Mg Tab) 40 mg PO BID [facility] Stop: 05/23/22 23:01 Last Admin: 04/24/22 21:45 Dose: 40 mg Polyethylene Glycol (Polyethylene (Miralax) 17 Gm Pack) 17 gm PO DAILY PRN PRN Reason: Constipation Stop: 05/23/22 23:01 Trazodone HCl (Trazodone Hcl 50 Mg Tab) 25 mg PO [facility] Stop: 05/23/22 23:01 Last Admin: 04/24/22 21:44 Dose: 25 mg Vitamin D (Cholecalciferol 1,000 Units 25 Mcg Tab) 2,000 units PO [facility] Stop: 05/24/22 08:59 Last Admin: 04/24/22 08:31 Dose: 2,000 units
[2022-04-25] MEDS: PANTOprazole 40 MG TAB PO SCH ×2 (14:31→20:37)
[2022-04-25] MEDS: FERROUS SULFATE 325 MG TAB PO SCH ×2 (14:32→20:36)
[2022-04-25] MEDS: busPIRone 5 MG TAB PO SCH ×2 (14:32→20:36)
[2022-04-25] MEDS: CHOLECALCIFEROL 1,000 UNITS 25 MCG TAB PO SCH (14:33)
[2022-04-25] MEDS: CEROVITE ADV FORMULA TAB PO SCH (14:33)
[2022-04-25] MEDS: HEPARIN SOD 5,000 UNIT/0.5 ML VIAL SQ SCH ×2 (14:34→20:44)
[2022-04-25] MEDS: MULTIVITAMIN TAB PO SCH (14:34)
[2022-04-25] MEDS: ASPIRIN 81 MG ECTAB PO SCH (14:34)
[2022-04-25] MEDS: LIDOCAINE 5% 1 PATCH TD SCH (14:35)
[2022-04-25] MEDS: traZODone HCL 50 MG TAB PO SCH (20:34)
[2022-04-25] MEDS: MIRTAZAPINE TAB 15 MG TAB PO SCH (20:35)
[2022-04-26] MEDS: ASPIRIN 81 MG ECTAB PO SCH (08:47)
[2022-04-26] MEDS: CEROVITE ADV FORMULA TAB PO SCH (08:48)
[2022-04-26] MEDS: CHOLECALCIFEROL 1,000 UNITS 25 MCG TAB PO SCH (08:48)
[2022-04-26] MEDS: PANTOprazole 40 MG TAB PO SCH ×2 (08:49→20:13)
[2022-04-26] MEDS: MULTIVITAMIN TAB PO SCH (08:49)
[2022-04-26] MEDS: busPIRone 5 MG TAB PO SCH ×2 (08:49→20:12)
[2022-04-26] MEDS: FERROUS SULFATE 325 MG TAB PO SCH ×2 (08:50→20:12)
[2022-04-26] MEDS: HEPARIN SOD 5,000 UNIT/0.5 ML VIAL SQ SCH ×2 (08:51→20:18)
[2022-04-26] MEDS: LIDOCAINE 5% 1 PATCH TD SCH (08:51)
[2022-04-26 09:52] LABS: Hematocrit (blood only) 38.4 % (34.1-44.9); Hemoglobin 12.4 g/dl (12.0-16.0); Mean Corpuscular Hemoglobin 30.2 pg (25.0-34.0); Mean Corpuscular Hgb Conc 32.3 g/dL (32.0-36.0); Mean Corpuscular Volume 93.7 fL (80.0-100.0); Mean Platelet Volume 10.2 fL (9.4-12.3); Platelet Count 271 K/uL (130-400); RDW Coefficient of Variation 14.1 % (11.5-14.5); White Blood Count 8.25 K/ul (4.8-10.8)
--- NOTE | 2022-04-26 13:34 | Hospitalist Progress Note ---
Date of Service April 26, 2022 Assessment & Plan (1) Bilateral leg weakness: (2) History of airway aspiration: (3) Leukocytosis: (4) Memory loss: (5) COVID-19: (6) CKD (chronic kidney disease), stage III: (7) Sleep apnea: (8) Anxiety: (9) Depression: Plan This is an 81 y/o F with PMH CAD, DM II, COPD, CKD III, anxiety, SILVIA, tobacco use presented to ER with increasing weakness and him ability to participate in therapy at home. Was recently admitted 17 days for UTI, COVID-pneumonia and generalized weakness and discharged home 2 days ago with home health. Per family, is unable to participate in home PT and they are having difficulty caring for her due to increased weakness. Family desires her to be placed at [facility] for additional treatment. Generalized weakness In setting of recent covid 19, UTI Unable to fully participate in home PT/OT Family requesting placement at [facility] Fall precautions. PT/OT eval CM working on placement for rehab Low back pain, L conservative tx with heat, lidoderm patch continue work with PT back feeling much better today Recent COVID-19 Completed Remdesivir Course on previous admission. Saturation well on room air CXR: There is a decreased inspiratory effort with otherwise no acute chest disease. Aspiration/Dysphagia Video Swallow on previous admission:Penetration and trace silent aspiration along with vallecula retention Initially failed swallow eval Continue Pureed diet with aspiration precautions, assistance with feeding for meals Recent UTI Urine culture: Enterococcus on previous admission. Completed antibiotic course History of BPPV (benign paroxysmal positional vertigo) Fall precautions, Meclizine prn Memory loss As per Prior Provider No aggressiveness Pleasantly confused and getting agitated at times At mentation baseline CAD (coronary artery disease) Continue aspirin History of Sinus Bradycardia Mostly noted while asleep Avoid AV rachana blocking agents Monitor Diabetes mellitus, type II A1c: 5.7 on 04/09/22 Monitor BSG, diabetic diet Novolog correction only at this time Pt with episodes of hypoglycemia Novolog scale was liberalized yesterday and then discontinued due to poor PO intake will continue to monitor bsg for now w/o coverage BSG remains controlled with out novolog, if remains stable recommend d/c accu checks tomorrow or reduce to fasting only Tobacco use Smoking cessation advised CKD (chronic kidney disease), stage III Cr at baseline Monitor renal functions, avoid nephrotoxic agents when possible DVT Ppx: SQ heparin Code status: DNR/DNI PCP: Ezequiel Dispo:med/surg, Pt medically stable for discharge, awaiting placement for rehab Pt was seen and examined in collaboration with Dr. Smith, please see addendum Admission and Anticipated Discharge Date Admission Date: April 24, 2022 Supervising Physician Co-Signing Physician Notes Patient was seen and examined independently at bedside. Chart reviewed. Case discussed with Teodora KOHLER and agree with the documentation above in regards to HPI, physical exam, assessment and plan. In summary, patient is here for generalized weakness in setting of recent COVID 19 infection and UTI. S/p antibiotic course for UTI. Medically stable for discharge to rehab. Awaiting placement. Subjective Patient was seen and examined in room 317-1. Follow up weakness, fatigue and recent covid-19 infection. She is sitting up in bed side chair. States her back feels better today and not as painful. She did work with OT this morning. Denies f/c/s , chest pain, sob, n/v/d, abd pain. Appetite is slightly improved this morning. Review of Systems Review of Systems: All systems reviewed & are unremarkable except as noted in HPI & below Physical Exam Physical Exam: Gen: Elderly, Petite, F, sitting up in bedside chair, NAD, A&O x3 to basics HEENT: Normocephalic, atraumatic, conjunctivae moist, sclerae anicteric, mucous membranes moist. Lung: Clear to Auscultation bilaterally, no wheezes/rales/rhonchi Heart: Regular rate, regular rhythm, no murmurs, rubs, or gallops Abdomen: Soft, NT, ND +BS x 4 Extremities: No edema Skin: Warm, no rash, negative turgor. Results & Data Results & Data ([facility]) Vital Signs (Past 12 Hours) Vital Signs Temp Pulse Resp BP Pulse Ox O2 Del Method 04/26/22 07:35 37.5 C 78 16 131/76 97 Room Air Laboratory Results Short CBC 04/26/22 Range/Units 09:11 WBC 8.25 (4.8-10.8) K/ul Hgb 12.4 (12.0-16.0) g/dl Hct 38.4 (34.1-44.9) % Plt Count 271 (130-400) K/uL Medications Administered Current Inpatient Medications Acetaminophen (Acetaminophen 325 Mg Tab) 650 mg PO Q4H PRN PRN Reason: pain/fever Stop: 05/23/22 23:01 Albuterol (Albuterol Hfa 8 Gm Inhaler) 2 puffs INH Q6H PRN PRN Reason: Shortness Of Breath Stop: 05/23/22 23:01 Alprazolam (Alprazolam 0.5 Mg Tablet) 0.5 mg PO BID PRN PRN Reason: Anxiety Stop: 05/23/22 23:01 Aspirin (Aspirin 81 Mg Ectab) 81 mg PO QAM [facility] Stop: 05/24/22 08:59 Last Admin: 04/26/22 08:47 Dose: 81 mg Buspirone HCl (Buspirone 5 Mg Tab) 10 mg PO BID [facility] Stop: 05/23/22 23:01 Last Admin: 04/26/22 08:49 Dose: 10 mg Dextrose (Dextrose 50% 50 Ml Syringe) 25 - 50 ml IV UD PRN; Protocol PRN Reason: Hypoglycemia Protocol Stop: 05/23/22 22:53 Ferrous Sulfate (Ferrous Sulfate 325 Mg Tab) 325 mg PO BID [facility] Stop: 05/23/22 23:01 Last Admin: 04/26/22 08:50 Dose: 325 mg Glucagon (Glucagon For Inj 1 Mg Vial) 1 mg SQ UD PRN; Protocol PRN Reason: Hypoglycemia Protocol Stop: 05/23/22 22:53 Glucose (Glucose 40% Gel 15 Gm Tube) 15 - 30 gm PO UD PRN; Protocol PRN Reason: Hypoglycemia Protocol Stop: 05/23/22 22:53 Glucose (Glucose 10 Tab/Tube) 4 - 8 tab PO UD PRN; Protocol PRN Reason: Hypoglycemia Treatment Stop: 05/23/22 22:53 Heparin Sodium (Porcine) (Heparin Sod 5,000 Unit/0.5 Ml Vial) 5,000 units SQ Q12 [facility] Stop: 05/24/22 08:59 Last Admin: 04/26/22 08:51 Dose: 5,000 units Lidocaine (Lidocaine 5% 1 Patch) 1 patch TD QAM [facility] Stop: 05/25/22 11:29 Last Admin: 04/26/22 08:51 Dose: 1 patch Mirtazapine (Mirtazapine Tab 15 Mg Tab) 22.5 mg PO HS [facility] Stop: 05/23/22 23:01 Last Admin: 04/25/22 20:35 Dose: 22.5 mg Miscellaneous (Carbohydrates For Hypoglycemia ) 15 - 30 gm PO UD PRN PRN Reason: Hypoglycemia Protocol Stop: 05/23/22 22:53 Last Admin: 04/24/22 17:37 Dose: 15 gm Miscellaneous (Remove Lidoderm Patch) 1 each N/A DAILY@2100 [facility] Stop: 05/25/22 20:59 Last Admin: 04/25/22 20:45 Dose: 1 each Multivitamins (Multivitamin Tab) 1 tab PO QAM [facility] Stop: 05/24/22 08:59 Last Admin: 04/26/22 08:49 Dose: 1 tab Multivitamins/Minerals (Cerovite Adv Formula Tab) 1 tab PO QAM [facility] Stop: 05/24/22 08:59 Last Admin: 04/26/22 08:48 Dose: 1 tab Ondansetron HCl (Ondansetron Inj 2 Mg/Ml 2 Ml Vial) 4 mg IV Q6H PRN PRN Reason: Nausea Stop: 05/23/22 23:01 Pantoprazole Sodium (Pantoprazole 40 Mg Tab) 40 mg PO BID [facility] Stop: 05/23/22 23:01 Last Admin: 04/26/22 08:49 Dose: 40 mg Polyethylene Glycol (Polyethylene (Miralax) 17 Gm Pack) 17 gm PO DAILY PRN PRN Reason: Constipation Stop: 05/23/22 23:01 Trazodone HCl (Trazodone Hcl 50 Mg Tab) [address] [facility] Stop: 05/23/22 23:01 Last Admin: 04/25/22 20:34 Dose: 25 mg Vitamin D (Cholecalciferol 1,000 Units 25 Mcg Tab) 2,000 units PO QAM [facility] Stop: 05/24/22 08:59 Last Admin: 04/26/22 08:48 Dose: 2,000 units
[2022-04-26] MEDS: MIRTAZAPINE TAB 15 MG TAB PO SCH (20:11)
[2022-04-26] MEDS: traZODone HCL 50 MG TAB PO SCH (20:15)
[2022-04-27] MEDS: LIDOCAINE 5% 1 PATCH TD SCH (10:02)
[2022-04-27] MEDS: MULTIVITAMIN TAB PO SCH (10:03)
[2022-04-27] MEDS: CEROVITE ADV FORMULA TAB PO SCH (10:03)
[2022-04-27] MEDS: busPIRone 5 MG TAB PO SCH ×2 (10:03→21:31)
[2022-04-27] MEDS: ASPIRIN 81 MG ECTAB PO SCH (10:03)
[2022-04-27] MEDS: CHOLECALCIFEROL 1,000 UNITS 25 MCG TAB PO SCH (10:03)
[2022-04-27] MEDS: HEPARIN SOD 5,000 UNIT/0.5 ML VIAL SQ SCH ×2 (10:04→21:32)
[2022-04-27] MEDS: FERROUS SULFATE 325 MG TAB PO SCH ×2 (10:04→21:32)
[2022-04-27] MEDS: PANTOprazole 40 MG TAB PO SCH ×2 (10:04→21:32)
[2022-04-27] MEDS: ACETAMINOPHEN 325 MG TAB PO PRN ×2 (10:14→17:21)
--- NOTE | 2022-04-27 13:11 | Hospitalist Progress Note ---
Date of Service April 27, 2022 Assessment & Plan (1) Bilateral leg weakness: (2) History of airway aspiration: (3) Leukocytosis: (4) Memory loss: (5) COVID-19: (6) CKD (chronic kidney disease), stage III: (7) Sleep apnea: (8) Anxiety: (9) Depression: Plan This is an 81 y/o F with PMH CAD, DM II, COPD, CKD III, anxiety, SILVIA, tobacco use presented to ER with increasing weakness and him ability to participate in therapy at home. Was recently admitted 17 days for UTI, COVID-pneumonia and generalized weakness and discharged home 2 days ago with home health. Per family, is unable to participate in home PT and they are having difficulty caring for her due to increased weakness. Family desires her to be placed at [facility] for additional treatment. Awaiting placement. Generalized weakness In setting of recent covid 19, UTI Unable to fully participate in home PT/OT Family requesting placement at [facility] Fall precautions. PT/OT eval CM working on placement for rehab Low back pain, L conservative tx with heat, lidoderm patch continue work with PT Recent COVID-19 Completed Remdesivir Course on previous admission. Saturation well on room air CXR: There is a decreased inspiratory effort with otherwise no acute chest disease. Aspiration/Dysphagia Video Swallow on previous admission:Penetration and trace silent aspiration al philip with vallecula retention Initially failed swallow eval Continue Pureed diet with aspiration precautions, assistance with feeding for meals Recent UTI Urine culture: Enterococcus on previous admission. Completed antibiotic course History of BPPV (benign paroxysmal positional vertigo) Fall precautions, Meclizine prn Memory loss As per Prior Provider No aggressiveness Pleasantly confused and getting agitated at times At mentation baseline CAD (coronary artery disease) Continue aspirin History of Sinus Bradycardia Mostly noted while asleep Avoid AV rachana blocking agents Monitor Diabetes mellitus, type II A1c: 5.7 on 04/09/22 Monitor BSG, diabetic diet Novolog correction only at this time Pt with episodes of hypoglycemia Novolog scale was liberalized yesterday and then discontinued due to poor PO intake will continue to monitor bsg for now w/o coverage BSG remains controlled with out novolog, if remains stable recommend d/c accu checks tomorrow or reduce to fasting only Tobacco use Smoking cessation advised CKD (chronic kidney disease), stage III Cr at baseline Monitor renal functions, avoid nephrotoxic agents when possible DVT Ppx: SQ heparin Code status: DNR/DNI PCP: Ezequiel Dispo:med/surg, Pt medically stable for discharge, awaiting placement for rehab Pt was seen and examined in collaboration with Dr. Smith, please see addendum Admission and Anticipated Discharge Date Admission Date: April 24, 2022 Supervising Physician Co-Signing Physician Notes Patient was seen and examined independently at bedside. Chart reviewed. Case discussed with Bri Ma PA-C and agree with the documentation above in regards to HPI, physical exam, assessment and plan. In summary, patient is here for generalized weakness in setting of recent COVID 19 infection and UTI. S/p antibiotic course for UTI. Medically stable for discharge to rehab. Awaiting placement. Subjective Patient was seen and examined in room 317-1. Having some back discomfort today that improved with repositioning. Encourage heat pacl use. Seen in follow up for weakness, fatigue and recent covid-19 infection. Denies f/c/s , chest pain, sob, n/v/d, abd pain. Appetite is slightly improved this morning. Denies any chest pain or abdominal pain. Review of Systems Review of Systems: At least ten systems reviewed and negative except as noted in the HPI. Physical Exam Physical Exam: Gen: Elderly, Petite female lying in bed, NAD, A&O x3 to basics HEENT: Normocephalic, atraumatic, conjunctivae moist, sclerae anicteric, mucous membranes moist Lung: Clear to Auscultation bilaterally, no wheezes/rales/rhonchi Heart: Regular rate, regular rhythm, no murmurs, rubs, or gallops Abdomen: Soft, NT, ND +BS x 4 Extremities: No edema Skin: Warm, no rash Results & Data Results & Data ([facility]) Vital Signs (Past 12 Hours) Vital Signs Temp Pulse Resp BP Pulse Ox O2 Del Method 04/27/22 10:00 Room Air 04/27/22 07:06 36.7 C 63 16 112/72 97 Room Air
[2022-04-27] MEDS: traZODone HCL 50 MG TAB PO SCH (21:31)
[2022-04-27] MEDS: MIRTAZAPINE TAB 15 MG TAB PO SCH (21:32)
[2022-04-28] MEDS: ASPIRIN 81 MG ECTAB PO SCH (08:50)
[2022-04-28] MEDS: MULTIVITAMIN TAB PO SCH (08:51)
[2022-04-28] MEDS: busPIRone 5 MG TAB PO SCH ×2 (08:51→20:45)
[2022-04-28] MEDS: CHOLECALCIFEROL 1,000 UNITS 25 MCG TAB PO SCH (08:51)
[2022-04-28] MEDS: LIDOCAINE 5% 1 PATCH TD SCH (08:51)
[2022-04-28] MEDS: HEPARIN SOD 5,000 UNIT/0.5 ML VIAL SQ SCH ×2 (08:51→20:45)
[2022-04-28] MEDS: PANTOprazole 40 MG TAB PO SCH ×2 (08:51→20:45)
[2022-04-28] MEDS: CEROVITE ADV FORMULA TAB PO SCH (08:52)
[2022-04-28] MEDS: FERROUS SULFATE 325 MG TAB PO SCH ×2 (10:45→20:45)
--- NOTE | 2022-04-28 13:33 | Hospitalist Progress Note ---
Date of Service April 28, 2022 Assessment & Plan (1) Bilateral leg weakness: (2) History of airway aspiration: (3) Leukocytosis: (4) Memory loss: (5) COVID-19: (6) CKD (chronic kidney disease), stage III: (7) Sleep apnea: (8) Anxiety: (9) Depression: Plan This is an 81 y/o F with PMH CAD, DM II, COPD, CKD III, anxiety, SILVIA, tobacco use presented to ER with increasing weakness and him ability to participate in therapy at home. Was recently admitted 17 days for UTI, COVID-pneumonia and generalized weakness and discharged home 2 days ago with home health. Per family, is unable to participate in home PT and they are having difficulty caring for her due to increased weakness. Family desires her to be placed at [facility] for additional treatment. Awaiting placement. Generalized weakness In setting of recent covid 19, UTI Unable to fully participate in home PT/OT Family requesting placement at [facility] Fall precautions. PT/OT CM working on placement for rehab Low back pain, L conservative tx with heat, lidoderm patch, repositioning continue work with PT Recent COVID-19 Completed Remdesivir Course on previous admission. Saturation well on room air CXR: There is a decreased inspiratory effort with otherwise no acute chest disease. Aspiration/Dysphagia Video Swallow on previous admission:Penetration and trace silent aspiration along with vallecula retention Initially failed swallow eval Continue Pureed diet with aspiration precautions, assistance with feeding for meals Recent UTI Urine culture: Enterococcus on previous admission. Completed antibiotic course History of BPPV (benign paroxysmal positional vertigo) Fall precautions, Meclizine prn Memory loss As per Prior Provider No aggressiveness Pleasantly confused and getting agitated at times At mentation baseline CAD (coronary artery disease) Continue aspirin History of Sinus Bradycardia Mostly noted while asleep Avoid AV rachana blocking agents Monitor Diabetes mellitus, type II A1c: 5.7 on 04/09/22 Monitor BSG, diabetic diet Novolog correction only at this time Pt with episodes of hypoglycemia Novolog scale was liberalized yesterday and then discontinued due to poor PO intake will continue to monitor bsg for now w/o coverage BSG remains controlled with out novolog, if remains stable recommend d/c accu checks tomorrow or reduce to fasting only Tobacco use Smoking cessation advised CKD (chronic kidney disease), stage III Cr at baseline Monitor renal functions, avoid nephrotoxic agents when possible DVT Ppx: SQ heparin Code status: DNR/DNI PCP: Ezequiel Dispo:med/surg, Pt medically stable for discharge, awaiting placement for rehab Pt was seen and examined in collaboration with Dr. Smith, please see addendum Admission and Anticipated Discharge Date Admission Date: April 24, 2022 Supervising Physician Co-Signing Physician Notes Patient was seen and examined independently at bedside. Chart reviewed. Case discussed with Bri Ma PA-C and agree with the documentation above in regards to HPI, physical exam, assessment and plan. In summary, patient is here for generalized weakness in setting of recent COVID 19 infection and UTI. S/p antibiotic course for UTI. Medically stable for discharge to rehab. Awaiting placement. Subjective Patient was seen and examined in room 317-1. Seen in follow up for weakness, fatigue and recent covid-19 infection. Back pain is improved as of now with repositioning every 2 hours. Denies new symptoms overnight. Denies f/c/s , chest pain, sob, n/v/d, abd pain. Awaiting placement. Review of Systems Review of Systems: At least ten systems reviewed and negative except as noted in the HPI. Physical Exam Physical Exam: Gen: Elderly, Petite female lying in bed, NAD, A&O x3 to basics HEENT: Normocephalic, atraumatic, conjunctivae moist, sclerae anicteric, mucous membranes moist Lung: Clear to Auscultation bilaterally, no wheezes/rales/rhonchi Heart: Regular rate, regular rhythm, no murmurs, rubs, or gallops Abdomen: Soft, NT, ND +BS x 4 Extremities: No edema Skin: Warm, no rash Results & Data Results & Data ([facility]) Vital Signs (Past 12 Hours) Vital Signs Temp Pulse Resp BP Pulse Ox O2 Del Method 04/28/22 08:00 Room Air 04/28/22 07:53 36.7 C 55 L 16 98/62 L 98 Room Air
[2022-04-28] MEDS: MIRTAZAPINE TAB 15 MG TAB PO SCH (22:41)
[2022-04-28] MEDS: traZODone HCL 50 MG TAB PO SCH (22:46)
[2022-04-29] MEDS: MULTIVITAMIN TAB PO SCH (09:30)
[2022-04-29] MEDS: FERROUS SULFATE 325 MG TAB PO SCH ×3 (09:30→19:59)
[2022-04-29] MEDS: ASPIRIN 81 MG ECTAB PO SCH (09:30)
[2022-04-29] MEDS: CHOLECALCIFEROL 1,000 UNITS 25 MCG TAB PO SCH (09:30)
[2022-04-29] MEDS: busPIRone 5 MG TAB PO SCH ×2 (09:30→19:59)
[2022-04-29] MEDS: CEROVITE ADV FORMULA TAB PO SCH (09:30)
[2022-04-29] MEDS: LIDOCAINE 5% 1 PATCH TD SCH (09:31)
[2022-04-29] MEDS: HEPARIN SOD 5,000 UNIT/0.5 ML VIAL SQ SCH ×2 (09:36→20:00)
[2022-04-29 09:44] LABS: Hematocrit (blood only) 37.3 % (34.1-44.9); Hemoglobin 11.5 g/dl (12.0-16.0); Mean Corpuscular Hemoglobin 29.7 pg (25.0-34.0); Mean Corpuscular Hgb Conc 30.8 g/dL (32.0-36.0); Mean Corpuscular Volume 96.4 fL (80.0-100.0); Mean Platelet Volume 10.3 fL (9.4-12.3); Platelet Count 193 K/uL (130-400); RDW Coefficient of Variation 14.3 % (11.5-14.5); RDW Standard Deviation 49.9 fL (36.4-46.3); Red Blood Count 3.87 M/uL (3.93-5.22); White Blood Count 6.11 K/ul (4.8-10.8)
[2022-04-29 10:04] LABS: BUN Creatinine Ratio 27.1 (10-20); Calcium 8.5 mg/dl (8.5-10.1); Creatinine Clr Calc Pharmacy 36.1 ml/min; Est GFR (Non-African American) 48.3 ml/min; Magnesium 1.6 mg/dl (1.7-2.4); Phosphorus 2.5 mg/dl (2.5-4.9); Potassium 3.6 mmol/L (3.5-5.1)
[2022-04-29] MEDS: PANTOprazole 40 MG TAB PO SCH ×2 (10:41→19:59)
--- NOTE | 2022-04-29 14:03 | Hospitalist Progress Note ---
Date of Service April 29, 2022 Assessment & Plan (1) Bilateral leg weakness: (2) History of airway aspiration: (3) Leukocytosis: (4) Memory loss: (5) COVID-19: (6) CKD (chronic kidney disease), stage III: (7) Sleep apnea: (8) Anxiety: (9) Depression: Plan This is an 81 y/o F with PMH CAD, DM II, COPD, CKD III, anxiety, SILVIA, tobacco use presented to ER with increasing weakness and him ability to participate in therapy at home. Was recently admitted 17 days for UTI, COVID-pneumonia and generalized weakness and discharged home 2 days ago with home health. Per family, is unable to participate in home PT and they are having difficulty caring for her due to increased weakness. Family desires her to be placed at [facility] for additional treatment. Awaiting placement. Generalized weakness In setting of recent covid 19, UTI Unable to fully participate in home PT/OT Family requesting placement at [facility] Fall precautions. PT/OT CM working on placement for rehab Low back pain, L conservative tx with heat, lidoderm patch, repositioning continue work with PT Recent COVID-19 Completed Remdesivir Course on previous admission. Saturation well on room air CXR: There is a decreased inspiratory effort with otherwise no acute chest disease. Aspiration/Dysphagia Video Swallow on previous admission:Penetration and trace silent aspiration along with vallecula retention Initially failed swallow eval Continue Pureed diet with aspiration precautions, assistance with feeding for meals Recent UTI Urine culture: Enterococcus on previous admission. Completed antibiotic course History of BPPV (benign paroxysmal positional vertigo) Fall precautions, Meclizine prn Memory loss As per Prior Provider No aggressiveness Pleasantly confused and getting agitated at times At mentation baseline CAD (coronary artery disease) Continue aspirin History of Sinus Bradycardia Mostly noted while asleep Avoid AV rachana blocking agents Monitor Diabetes mellitus, type II A1c: 5.7 on 04/09/22 Monitor BSG, diabetic diet Novolog correction only at this time. Tobacco use Smoking cessation advised CKD (chronic kidney disease), stage III Cr at baseline Monitor renal functions, avoid nephrotoxic agents when possible DVT Ppx: SQ heparin Code status: DNR/DNI PCP: Ezequiel Dispo:med/surg, Pt medically stable for discharge, awaiting placement for rehab Admission and Anticipated Discharge Date Admission Date: April 24, 2022 Subjective Patient seen and examined at bedside. She is comfortable; not in any acute distress. She says she is waiting for placement to rehab Review of Systems Review of Systems: All systems reviewed & are unremarkable except as noted in Subjective Physical Exam Physical Exam: Gen: Elderly, Petite female lying in bed, NAD, A&O x3 to basics HEENT: Normocephalic, atraumatic, conjunctivae moist, sclerae anicteric, mucous membranes moist Lung: Clear to Auscultation bilaterally, no wheezes/rales/rhonchi Heart: Regular rate, regular rhythm, no murmurs, rubs, or gallops Abdomen: Soft, NT, ND +BS x 4 Extremities: No edema Skin: Warm, no rash Results & Data Results & Data ([facility]) Vital Signs (Past 12 Hours) Vital Signs Temp Pulse Resp BP Pulse Ox O2 Del Method 04/29/22 07:45 Room Air 04/29/22 07:59 36.7 C 60 16 96/61 L 98 Room Air COVID-19 Results Results COVID-19 Adm Lab Results: RBC 3.87 M/uL (3.93-5.22) L 04/29/22 WBC 6.11 K/ul (4.8-10.8) 04/29/22 Hgb 11.5 g/dl (12.0-16.0) L 04/29/22 Hct 37.3 % (34.1-44.9) 04/29/22 Plt Count 193 K/uL (130-400) 04/29/22 Neutrophils (%) (Auto) 81.5 % 04/23/22 Lymphocytes (%) (Auto) 11.7 % 04/23/22 Monocytes # (Auto) 0.75 K/uL (0.24-0.82) 04/23/22 Eosinophils # (Auto) 0.08 K/uL (0-0.50) 04/23/22 Immature Granulocyte % (Auto) 0.7 % 04/23/22 Neutrophils # (Auto) 11.36 K/uL (1.4-6.5) H 04/23/22 Lymphocytes # (Auto) 1.63 K/uL (1.2-3.4) 04/23/22 Monocytes # (Auto) 0.75 K/uL (0.24-0.82) 04/23/22 Eosinophils # (Auto) 0.08 K/uL (0-0.50) 04/23/22 Basophils # (Auto) 0.02 K/uL (0-0.2) 04/23/22 Immature Granulocyte # (Auto) 0.10 K/uL (0.00-0.02) H 04/23 Na 142 mmol/L (136-145) 04/29/22 K 3.6 mmol/L (3.5-5.1) 04/29/22 Cl 108 mmol/L (98-107) H 04/29/22 CO2 28 mmol/L (21-32) 04/29/22 Anion Gap 6 (3-11) 04/29/22 BUN 29 mg/dl (6-23) H 04/29/22 Creatinine 1.07 mg/dl (0.6-1.2) 04/29/22 BUN/Creatinine Ratio 27.1 (10-20) H 04/29/22 Glucose Level 74 mg/dl (70-99(Fasting)) 04/29/22 Ca 8.5 mg/dl (8.5-10.1) 04/29/22 Phosphorus Level 2.5 mg/dl (2.5-4.9) 04/29/22 Total Bilirubin 0.6 mg/dl (0.2-1.0) 04/23/22 AST/SGOT 11 U/L (13-39) L 04/23/22 ALT/SGPT 8 U/L (7-52) 04/23/22 Alkaline Phosphatase 53 U/L (34-104) 04/23/22 Total Protein 6.1 gm/dl (6.0-8.3) 04/23/22 Albumin 3.1 gm/dl (3.4-5.0) L 04/23/22 Globulin 3.0 gm/dl (2.5-4.0) 04/23/22 Albumin/Globulin Ratio 1.0 (0.9-2) 04/23/22 SARS-CoV-2, RNA, NAAT POSITIVE (NEGATIVE) A* 04/23/22 Chest X-Ray 04/23/22
[2022-04-29] MEDS: MIRTAZAPINE TAB 15 MG TAB PO SCH (19:59)
[2022-04-29] MEDS: traZODone HCL 50 MG TAB PO SCH (20:01)
[2022-04-30] MEDS: PANTOprazole 40 MG TAB PO SCH ×2 (08:13→20:38)
[2022-04-30] MEDS: CEROVITE ADV FORMULA TAB PO SCH (08:14)
[2022-04-30] MEDS: ASPIRIN 81 MG ECTAB PO SCH (08:15)
[2022-04-30] MEDS: busPIRone 5 MG TAB PO SCH ×2 (08:15→20:35)
[2022-04-30] MEDS: FERROUS SULFATE 325 MG TAB PO SCH ×2 (08:15→20:36)
[2022-04-30] MEDS: CHOLECALCIFEROL 1,000 UNITS 25 MCG TAB PO SCH (08:15)
[2022-04-30] MEDS: MULTIVITAMIN TAB PO SCH (08:15)
[2022-04-30] MEDS: LIDOCAINE 5% 1 PATCH TD SCH (08:16)
[2022-04-30] MEDS: HEPARIN SOD 5,000 UNIT/0.5 ML VIAL SQ SCH ×2 (08:16→20:36)
[2022-04-30] MEDS: MAGNESIUM OXIDE 400 MG TAB PO SCH (09:57)
--- NOTE | 2022-04-30 14:15 | Hospitalist Progress Note ---
Date of Service April 30, 2022 Assessment & Plan (1) Bilateral leg weakness: (2) History of airway aspiration: (3) Leukocytosis: (4) Memory loss: (5) COVID-19: (6) CKD (chronic kidney disease), stage III: (7) Sleep apnea: (8) Anxiety: (9) Depression: Plan This is an 81 y/o F with PMH CAD, DM II, COPD, CKD III, anxiety, SILVIA, tobacco use presented to ER with increasing weakness and him ability to participate in therapy at home. Was recently admitted 17 days for UTI, COVID-pneumonia and generalized weakness and discharged home 2 days ago with home health. Per family, is unable to participate in home PT and they are having difficulty caring for her due to increased weakness. Family desires her to be placed at [facility] for additional treatment. Awaiting placement. Generalized weakness In setting of recent covid 19, UTI Unable to fully participate in home PT/OT Family requesting placement at [facility] Fall precautions. PT/OT CM working on placement for rehab Constipation Added MiraLAX once daily and senna. Low back pain, L conservative tx with heat, lidoderm patch, repositioning continue work with PT Recent COVID-19 Completed Remdesivir Course on previous admission. Saturation well on room air CXR: There is a decreased inspiratory effort with otherwise no acute chest disease. Aspiration/Dysphagia Video Swallow on previous admission:Penetration and trace silent aspiration along with vallecula retention Initially failed swallow eval Continue Pureed diet with aspiration precautions, assistance with feeding for meals Recent UTI Urine culture: Enterococcus on previous admission. Completed antibiotic course History of BPPV (benign paroxysmal positional vertigo) Fall precautions, Meclizine prn Memory loss As per Prior Provider No aggressiveness Pleasantly confused and getting agitated at times At mentation baseline CAD (coronary artery disease) Continue aspirin History of Sinus Bradycardia Mostly noted while asleep Avoid AV rachana blocking agents Monitor Diabetes mellitus, type II A1c: 5.7 on 04/09/22 Monitor BSG, diabetic diet Novolog correction only at this time. Tobacco use Smoking cessation advised CKD (chronic kidney disease), stage III Cr at baseline Monitor renal functions, avoid nephrotoxic agents when possible DVT Ppx: SQ heparin Code status: DNR/DNI PCP: Ezequiel Dispo:med/surg, Pt medically stable for discharge, awaiting placement for rehab Admission and Anticipated Discharge Date Admission Date: April 24, 2022 Subjective Patient seen and examined at bedside. No overnight events. She complains of being constipated; passing gas. She is unsure when she had last bowel movement. Review of Systems Review of Systems: All systems reviewed & are unremarkable except as noted in Subjective Physical Exam Physical Exam: Gen: Elderly, Petite female lying in bed, NAD, A&O x3 to basics HEENT: Normocephalic, atraumatic, conjunctivae moist, sclerae anicteric, mucous membranes moist Lung: Clear to Auscultation bilaterally, no wheezes/rales/rhonchi Heart: Regular rate, regular rhythm, no murmurs, rubs, or gallops Abdomen: Soft, NT, ND +BS x 4 Extremities: No edema Skin: Warm, no rash Results & Data Results & Data ([facility]) Vital Signs (Past 12 Hours) Vital Signs Temp Pulse Resp BP Pulse Ox O2 Del Method 04/30/22 07:23 Room Air 04/30/22 07:19 36.9 C 67 12 91/56 L 94 Room Air COVID-19 Results Results COVID-19 Adm Lab Results: RBC 3.87 M/uL (3.93-5.22) L 04/29/22 WBC 6.11 K/ul (4.8-10.8) 04/29/22 Hgb 11.5 g/dl (12.0-16.0) L 04/29/22 Hct 37.3 % (34.1-44.9) 04/29/22 Plt Count 193 K/uL (130-400) 04/29/22 Neutrophils (%) (Auto) 81.5 % 04/23/22 Lymphocytes (%) (Auto) 11.7 % 04/23/22 Monocytes # (Auto) 0.75 K/uL (0.24-0.82) 04/23/22 Eosinophils # (Auto) 0.08 K/uL (0-0.50) 04/23/22 Immature Granulocyte % (Auto) 0.7 % 04/23/22 Neutrophils # (Auto) 11.36 K/uL (1.4-6.5) H 04/23/22 Lymphocytes # (Auto) 1.63 K/uL (1.2-3.4) 04/23/22 Monocytes # (Auto) 0.75 K/uL (0.24-0.82) 04/23/22 Eosinophils # (Auto) 0.08 K/uL (0-0.50) 04/23/22 Basophils # (Auto) 0.02 K/uL (0-0.2) 04/23/22 Immature Granulocyte # (Auto) 0.10 K/uL (0.00-0.02) H 04/23 Na 142 mmol/L (136-145) 04/29/22 K 3.6 mmol/L (3.5-5.1) 04/29/22 Cl 108 mmol/L (98-107) H 04/29/22 CO2 28 mmol/L (21-32) 04/29/22 Anion Gap 6 (3-11) 04/29/22 BUN 29 mg/dl (6-23) H 04/29/22 Creatinine 1.07 mg/dl (0.6-1.2) 04/29/22 BUN/Creatinine Ratio 27.1 (10-20) H 04/29/22 Glucose Level 74 mg/dl (70-99(Fasting)) 04/29/22 Ca 8.5 mg/dl (8.5-10.1) 04/29/22 Phosphorus Level 2.5 mg/dl (2.5-4.9) 04/29/22 Total Bilirubin 0.6 mg/dl (0.2-1.0) 04/23/22 AST/SGOT 11 U/L (13-39) L 04/23/22 ALT/SGPT 8 U/L (7-52) 04/23/22 Alkaline Phosphatase 53 U/L (34-104) 04/23/22 Total Protein 6.1 gm/dl (6.0-8.3) 04/23/22 Albumin 3.1 gm/dl (3.4-5.0) L 04/23/22 Globulin 3.0 gm/dl (2.5-4.0) 04/23/22 Albumin/Globulin Ratio 1.0 (0.9-2) 04/23/22 SARS-CoV-2, RNA, NAAT POSITIVE (NEGATIVE) A* 04/23/22 Chest X-Ray 04/23/22
[2022-04-30] MEDS: POLYETHYLENE (MIRALAX) 17 GM PACK PO SCH (14:56)
[2022-04-30] MEDS: MIRTAZAPINE TAB 15 MG TAB PO SCH (20:37)
[2022-04-30] MEDS: traZODone HCL 50 MG TAB PO SCH (20:39)
[2022-05-01] MEDS: PANTOprazole 40 MG TAB PO SCH ×2 (07:40→20:36)
[2022-05-01] MEDS: SENNA 8.6 MG TAB PO SCH (07:40)
[2022-05-01] MEDS: FERROUS SULFATE 325 MG TAB PO SCH ×2 (07:40→20:34)
[2022-05-01] MEDS: ASPIRIN 81 MG ECTAB PO SCH (07:40)
[2022-05-01] MEDS: busPIRone 5 MG TAB PO SCH ×2 (07:40→20:38)
[2022-05-01] MEDS: CHOLECALCIFEROL 1,000 UNITS 25 MCG TAB PO SCH (07:41)
[2022-05-01] MEDS: CEROVITE ADV FORMULA TAB PO SCH (07:41)
[2022-05-01] MEDS: HEPARIN SOD 5,000 UNIT/0.5 ML VIAL SQ SCH ×2 (07:41→20:39)
[2022-05-01] MEDS: MULTIVITAMIN TAB PO SCH (07:41)
[2022-05-01] MEDS: MAGNESIUM OXIDE 400 MG TAB PO SCH (07:41)
[2022-05-01] MEDS: LIDOCAINE 5% 1 PATCH TD SCH (07:42)
[2022-05-01] MEDS: POLYETHYLENE (MIRALAX) 17 GM PACK PO SCH (07:42)
--- NOTE | 2022-05-01 15:16 | Hospitalist Progress Note ---
Date of Service May 01, 2022 Assessment & Plan (1) Bilateral leg weakness: (2) History of airway aspiration: (3) Leukocytosis: (4) Memory loss: (5) COVID-19: (6) CKD (chronic kidney disease), stage III: (7) Sleep apnea: (8) Anxiety: (9) Depression: Plan This is an 81 y/o F with PMH CAD, DM II, COPD, CKD III, anxiety, SILVIA, tobacco use presented to ER with increasing weakness and him ability to participate in therapy at home. Was recently admitted 17 days for UTI, COVID-pneumonia and generalized weakness and discharged home 2 days ago with home health. Per family, is unable to participate in home PT and they are having difficulty caring for her due to increased weakness. Family desires her to be placed at [facility] for additional treatment. Awaiting placement. Generalized weakness In setting of recent covid 19, UTI Unable to fully participate in home PT/OT Fall precautions. PT/OT Patient accepted at rehab; to be discharge tomorrow. Prescription on file Constipation Added MiraLAX once daily and senna. Low back pain, L conservative tx with heat, lidoderm patch, repositioning continue work with PT Recent COVID-19 Completed Remdesivir Course on previous admission. Saturation well on room air CXR: There is a decreased inspiratory effort with otherwise no acute chest disease. Aspiration/Dysphagia Video Swallow on previous admission:Penetration and trace silent aspiration along with vallecula retention Initially failed swallow eval Continue Pureed diet with aspiration precautions, assistance with feeding for meals Recent UTI Urine culture: Enterococcus on previous admission. Completed antibiotic course History of BPPV (benign paroxysmal positional vertigo) Fall precautions, Meclizine prn Memory loss As per Prior Provider No aggressiveness Pleasantly confused and getting agitated at times At mentation baseline CAD (coronary artery disease) Continue aspirin History of Sinus Bradycardia Mostly noted while asleep Avoid AV rachana blocking agents Monitor Diabetes mellitus, type II A1c: 5.7 on 04/09/22 Monitor BSG, diabetic diet Novolog correction only at this time. Tobacco use Smoking cessation advised CKD (chronic kidney disease), stage III Cr at baseline Monitor renal functions, avoid nephrotoxic agents when possible DVT Ppx: SQ heparin Code status: DNR/DNI PCP: Ezequiel Dispo:med/surg, Pt medically stable for discharge, patient to be discharged tomorrow a.m. Admission and Anticipated Discharge Date Admission Date: April 24, 2022 Subjective Seen and examined at bedside. She is sitting up on the chair eating her breakfast. Denies any fever, chills, chest pain, shortness of breath or abdominal pain. Review of Systems Review of Systems: All systems reviewed & are unremarkable except as noted in Subjective Physical Exam Physical Exam: Gen: Elderly, Petite female lying in bed, NAD, A&O x3 to basics HEENT: Normocephalic, atraumatic, conjunctivae moist, sclerae anicteric, mucous membranes moist Lung: Clear to Auscultation bilaterally, no wheezes/rales/rhonchi Heart: Regular rate, regular rhythm, no murmurs, rubs, or gallops Abdomen: Soft, NT, ND +BS x 4 Extremities: No edema Skin: Warm, no rash Results & Data Results & Data ([facility]) Vital Signs (Past 12 Hours) Vital Signs Temp Pulse Resp BP Pulse Ox O2 Del Method 05/01/22 08:00 Room Air 05/01/22 07:47 37.3 C 59 L 16 92/58 L 97 Room Air COVID-19 Results Results COVID-19 Adm Lab Results: RBC 3.87 M/uL (3.93-5.22) L 04/29/22 WBC 6.11 K/ul (4.8-10.8) 04/29/22 Hgb 11.5 g/dl (12.0-16.0) L 04/29/22 Hct 37.3 % (34.1-44.9) 04/29/22 Plt Count 193 K/uL (130-400) 04/29/22 Neutrophils (%) (Auto) 81.5 % 04/23/22 Lymphocytes (%) (Auto) 11.7 % 04/23/22 Monocytes # (Auto) 0.75 K/uL (0.24-0.82) 04/23/22 Eosinophils # (Auto) 0.08 K/uL (0-0.50) 04/23/22 Immature Granulocyte % (Auto) 0.7 % 04/23/22 Neutrophils # (Auto) 11.36 K/uL (1.4-6.5) H 04/23/22 Lymphocytes # (Auto) 1.63 K/uL (1.2-3.4) 04/23/22 Monocytes # (Auto) 0.75 K/uL (0.24-0.82) 04/23/22 Eosinophils # (Auto) 0.08 K/uL (0-0.50) 04/23/22 Basophils # (Auto) 0.02 K/uL (0-0.2) 04/23/22 Immature Granulocyte # (Auto) 0.10 K/uL (0.00-0.02) H 04/23 Na 142 mmol/L (136-145) 04/29/22 K 3.6 mmol/L (3.5-5.1) 04/29/22 Cl 108 mmol/L (98-107) H 04/29/22 CO2 28 mmol/L (21-32) 04/29/22 Anion Gap 6 (3-11) 04/29/22 BUN 29 mg/dl (6-23) H 04/29/22 Creatinine 1.07 mg/dl (0.6-1.2) 04/29/22 BUN/Creatinine Ratio 27.1 (10-20) H 04/29/22 Glucose Level 74 mg/dl (70-99(Fasting)) 04/29/22 Ca 8.5 mg/dl (8.5-10.1) 04/29/22 Phosphorus Level 2.5 mg/dl (2.5-4.9) 04/29/22 Total Bilirubin 0.6 mg/dl (0.2-1.0) 04/23/22 AST/SGOT 11 U/L (13-39) L 04/23/22 ALT/SGPT 8 U/L (7-52) 04/23/22 Alkaline Phosphatase 53 U/L (34-104) 04/23/22 Total Protein 6.1 gm/dl (6.0-8.3) 04/23/22 Albumin 3.1 gm/dl (3.4-5.0) L 04/23/22 Globulin 3.0 gm/dl (2.5-4.0) 04/23/22 Albumin/Globulin Ratio 1.0 (0.9-2) 04/23/22 SARS-CoV-2, RNA, NAAT POSITIVE (NEGATIVE) A* 04/23/22 Chest X-Ray 04/23/22
[2022-05-01] MEDS: MIRTAZAPINE TAB 15 MG TAB PO SCH (20:37)
[2022-05-01] MEDS: traZODone HCL 50 MG TAB PO SCH (20:44)
[2022-05-01] MEDS ORDERED: SODIUM CHLORIDE 0.9% 500 ML IV SCH (22:30)
[2022-05-02 07:19] VITALS: TEMP 98.1; O2SAT 98
--- NOTE | 2022-05-02 07:46 | Discharge Summary ---
Date of Service May 02, 2022 Admission HPI Per Admitting Provider This is an 81 y/o F with PMH CAD, DM II, COPD, CKD III, anxiety, SILVIA, tobacco use presented to ER with increasing weakness and him ability to participate in therapy at home. Was recently admitted 17 days for UTI, COVID-pneumonia and generalized weakness and discharged home 2 days ago with home health. Per family, is unable to participate in home PT and they are having difficulty caring for her due to increased weakness. Family desires her to be placed at [facility] for additional treatment. Patient has leg weakness which is been ongoing and persistent as well as nonproductive chronic cough in the setting of tobacco use. During recent admission, patient found to be aspirated and placed on pured diet with aspiration precautions. Patient pleasantly confused but at mentation baseline. Repeating "I just want to go home" during interview. ROS unobtainable 2/2 cognitive state. Admission Exam Per Admitting Provider General Appearance:WD/WN, vitals as above, elderly, frail, confused Head: normocephalic, atraumatic Eyes:normal inspection, PERRL, conjunctivae normal, anicteric sclerae ENT: external ear and nose normal, oropharynx normal Neck: normal visual inspection, trachea midline, no thyromegaly Respiratory:normal respiratory effort, diminished lung sounds bilaterally, no wheeze, rales, rhonchi Cardiovascular: regular rate, rhythm, no murmur, normal peripheral pulses, no BLE edema. Vessels: no JVD Chest: normal inspection of chest Abdomen/GI: normal bowel sounds, soft, nontender, no hepatosplenomegaly Extremities/Musculoskeletal: no cyanosis or clubbing, extremities motor strength 5/5 Neurologic: PERRL, EOMI, accommodation nl, no face palsy, no dysarthria, CN's II-XI intact bilaterally and moves all extremities Psychiatric:A+Ox person and place, anxious Skin: no rashes, normal color, warm/dry Principal Diagnosis (1)Generalized weakness, post covid (2) History of airway aspiration: (3) Leukocytosis: (4) Memory loss: (5) COVID-19: (6) CKD (chronic kidney disease), stage III: (7) Sleep apnea: (8) Anxiety: (9) Depression: Discharge Exam Gen: Elderly, Petite, F, sitting up in bedside chair, NAD, A&O x3 to basics HEENT: Normocephalic, atraumatic, conjunctivae moist, sclerae anicteric, mucous membranes moist. Lung: Clear to Auscultation bilaterally, no wheezes/rales/rhonchi Heart: Regular rate, regular rhythm, no murmurs, rubs, or gallops Abdomen: Soft, NT, ND +BS x 4 Extremities: No edema Skin: Warm, no rash, negative turgor. Discharge Data Allergies Allergy/AdvReac Type Severity Reaction Status Date / Time Penicillins Allergy Mild Rash Verified 11/02/21 08:27 Consultations 04/23/22 17:33 ED Decision to Admit Stat Ordered Studies Chest X-Ray 04/23/22 19:31 XR chest 1V portable CLINICAL HISTORY: leukocytosis. Evaluate cardiopulmonary status COMPARISON STUDY: 04/12/2022 TECHNIQUE: 1 view of the chest FINDINGS: Single frontal view of the chest demonstrates the heart to again be prominent in size related to the patient's decreased inspiration. There is a decreased inspiratory effort with elevation of the hemidiaphragms and crowding of the bronchovascular markings at the lung bases and centrally. The lungs are clear of alveolar opacities. There is no evidence for pleural effusion. There is no evidence for vascular congestion. There is no acute osseous pathology. IMPRESSION: 1. There is a decreased inspiratory effort with otherwise no acute chest disease. ACT 112: Negative or not required by law. Electronically signed by: Jerry Mota M.D. 04/23/2022 7:54 PM Hospital Course (1) Bilateral leg weakness: (2) History of airway aspiration: (3) Leukocytosis: (4) Memory loss: (5) COVID-19: (6) CKD (chronic kidney disease), stage III: (7) Sleep apnea: (8) Anxiety: (9) Depression: Plan This is an 81 y/o F with PMH CAD, DM II, COPD, CKD III, anxiety, SILVIA, tobacco use presented to ER with increasing weakness and him ability to participate in therapy at home. Was recently admitted 17 days for UTI, COVID-pneumonia and generalized weakness and discharged home 2 days ago with home health. Per family, is unable to participate in home PT and they are having difficulty caring for her due to increased weakness. Family desires her to be placed at halfway facility. Her hospital course was generally unremarkable. She participated in PT/OT in house. She did have lower back pain that was felt to be musculoskeletal. It did seem improved with lidocaine patch, heat and PT. She has hx of of T2DM although well controlled at baseline. Her last a1c was 5.7 on 04/09/22. Her insulin coverage was discontinued as her blood sugar remained well controlled. It is recommended to continue checking daily fasting glucose levels. It is recommended to continue current medication regimen. On day of discharge she was hemodynamically stable and in good spirits. Her vital signs were stable and her last BM was documented on 05/01. Her blood pressure tends to run on the lower side at baseline. She did have mild hypomagnesemia and this was replaced during her stay. Last lab work was done on 04/29/22 and hgb was 11.5, wbc 6.11, bun 29 and creatinine 1.07. 05/02/22 05/02/22 05/02/22 Range/Units 08:05 07:50 07:50 WBC 4.66 L (4.8-10.8) K/ul RBC 3.56 L (3.93-5.22) M/uL Hgb 10.7 L (12.0-16.0) g/dl Hct 34.4 (34.1-44.9) % MCV 96.6 (80.0-100.0) fL MCH 30.1 (25.0-34.0) pg MCHC 31.1 L (32.0-36.0) g/dL RDW Std Deviation 51.8 H (36.4-46.3) fL RDW Coeff of Thierry 14.9 H (11.5-14.5) % Plt Count 186 (130-400) K/uL MPV 9.7 (9.4-12.3) fL Immature Gran % (Auto) 0.6 % Neut % (Auto) 62.5 % Lymph % (Auto) 26.0 % [place] % (Auto) 5.8 % Eos % (Auto) 4.7 % Baso % (Auto) 0.4 % Neut # (Auto) 2.91 (1.4-6.5) K/uL Lymph # (Auto) 1.21 (1.2-3.4) K/uL [place] # (Auto) 0.27 (0.24-0.82) K/uL Eos # (Auto) 0.22 (0-0.50) K/uL Baso # (Auto) 0.02 (0-0.2) K/uL Immature Gran # (Auto) 0.03 H (0.00-0.02) K/uL Sodium 140 (136-145) mmol/L Potassium 4.7 (3.5-5.1) mmol/L Chloride 106 (98-107) mmol/L Carbon Dioxide 33 H (21-32) mmol/L Anion Gap 1 L (3-11) BUN 31 H (6-23) mg/dl Creatinine 1.18 (0.6-1.2) mg/dl Est Cr Clr Drug Dosing 32.7 ml/min Est GFR ( Amer) 49.7 ml/min Est GFR (Non-Af Amer) 42.9 ml/min BUN/Creatinine Ratio 26.3 H (10-20) Glucose 85 (70-99(Fasting)) mg/dl POC Glucose 91 (70-99) mg/dl Calcium 8.4 L (8.5-10.1) mg/dl 05/01/22 05/01/22 05/01/22 Range/Units 20:34 16:58 11:53 WBC (4.8-10.8) K/ul RBC (3.93-5.22) M/uL Hgb (12.0-16.0) g/dl Hct (34.1-44.9) % MCV (80.0-100.0) fL MCH (25.0-34.0) pg MCHC (32.0-36.0) g/dL RDW Std Deviation (36.4-46.3) fL RDW Coeff of Thierry (11.5-14.5) % Plt Count (130-400) K/uL MPV (9.4-12.3) fL Immature Gran % (Auto) % Neut % (Auto) % Lymph % (Auto) % [place] % (Auto) % Eos % (Auto) % Baso % (Auto) % Neut # (Auto) (1.4-6.5) K/uL Lymph # (Auto) (1.2-3.4) K/uL [place] # (Auto) (0.24-0.82) K/uL Eos # (Auto) (0-0.50) K/uL Baso # (Auto) (0-0.2) K/uL Immature Gran # (Auto) (0.00-0.02) K/uL Sodium (136-145) mmol/L Potassium (3.5-5.1) mmol/L Chloride (98-107) mmol/L Carbon Dioxide (21-32) mmol/L Anion Gap (3-11) BUN (6-23) mg/dl Creatinine (0.6-1.2) mg/dl Est Cr Clr Drug Dosing ml/min Est GFR ( Amer) ml/min Est GFR (Non-Af Amer) ml/min BUN/Creatinine Ratio (10-20) Glucose (70-99(Fasting)) mg/dl POC Glucose 117 H 109 H 110 H (70-99) mg/dl Calcium (8.5-10.1) mg/dl Total Time Total Time Spent Total Time Spent (In Minutes): 35 minutes Discharge Plan Discharge Items Patient Disposition: Transfer Longterm Fac Reason For Visit: PLACEMENT,GENERALIZED WEAKNESS,FAMILY UNABLE TO CA Discharge Diagnosis: (1)Generalized weakness, post covid (2) History of airway aspiration: (3) Leukocytosis: (4) Memory loss: (5) COVID-19: (6) CKD (chronic kidney disease), stage III: (7) Sleep apnea: (8) Anxiety: (9) Depression: Activity: Resume your previous activity Non-emergency contact: Primary Care Provider Call non-emergency contact if: you have any medication questions Follow-up/Referrals: Bandar Nieves MD [Primary Care Provider] - Diet: Carb Consistent or DM2 Diet Texture: Pureed (blended smooth) Addtl Attending Provider Instructions: Please continue to take medications as prescribed. Follow up with PCP in one week. Please continue to do physical therapy at [facility]> Pending Studies at Discharge: No Stand-Alone Forms: My [facility] [employer] Skilled Items Patient informed of condition?: Yes DNR: Yes Discharge Level of Care: Skilled Communicable Disease: No Discharge Prognosis: Improving Lines: None Urinary Catheter: No Medications and DC Order Prescriptions: Continued multivitamin Tablet 1 tab PO QAM aspirin 81 mg Tablet,Delayed Release (Dr/Ec) 81 mg PO QAM cholecalciferol (vitamin D3) [Vitamin D3] 2,000 unit Tablet 2,000 unit PO QAM albuterol sulfate [ProAir HFA] 90 mcg/actuation Hfa Aerosol Inhaler 2 puff INHALATION Q6H PRN (Reason: Shortness Of Breath) PreserVision AREDS 7,160-113-100 [id number] Tablet 1 tab PO QAM alprazolam 0.5 mg tablet 0.5 mg PO BID PRN (Reason: Anxiety) trazodone 50 mg Tablet 25 mg PO HS mirtazapine 15 mg Tablet 22.5 mg PO HS buspirone 10 mg tablet 10 mg PO BID ferrous sulfate 325 mg (65 mg iron) tablet 325 mg PO BID omeprazole 40 mg capsule,delayed release(DR/EC) 40 mg PO BID Qty: 180 3RF Discharge Orders: Discharge Order (Routine); Ordered 05/02/22 Ordered By: Lenin Goodman Admission Data Admit Date/Time: 04/24/22 15:44 Attending Provider: Lenin Goodman Admit Provider: Sunil Ruiz Primary Care Provider: Bandar Nieves Other Providers: Sunil Ruiz ; Justine Sultana at [place] ; Bri Ma ; [facility] ; Byron Smith ; Teodora Zaldivar Other Interventions: Discharge Summary Assessment (RN) Last Done: 05/02/22 11:38 Supervising Physician Co-Signing Physician Notes Patient was seen and examined independently at bedside. Chart reviewed. Case discussed with Teodora Zaldivar PA-C and agree with the documentation above.
[2022-05-02] MEDS: LIDOCAINE 5% 1 PATCH TD SCH (07:49)
[2022-05-02] MEDS: FERROUS SULFATE 325 MG TAB PO SCH (07:49)
[2022-05-02] MEDS: HEPARIN SOD 5,000 UNIT/0.5 ML VIAL SQ SCH (07:49)
[2022-05-02] MEDS: busPIRone 5 MG TAB PO SCH (07:49)
[2022-05-02] MEDS: PANTOprazole 40 MG TAB PO SCH (07:49)
[2022-05-02] MEDS: SENNA 8.6 MG TAB PO SCH (07:50)
[2022-05-02] MEDS: ASPIRIN 81 MG ECTAB PO SCH (07:50)
[2022-05-02] MEDS: MULTIVITAMIN TAB PO SCH (07:50)
[2022-05-02] MEDS: MAGNESIUM OXIDE 400 MG TAB PO SCH (07:50)
[2022-05-02] MEDS: CHOLECALCIFEROL 1,000 UNITS 25 MCG TAB PO SCH (07:50)
[2022-05-02] MEDS: CEROVITE ADV FORMULA TAB PO SCH (07:50)
[2022-05-02] MEDS: POLYETHYLENE (MIRALAX) 17 GM PACK PO SCH (07:50)
[2022-05-02 08:30] LABS: Basophils # (auto) 0.02 K/uL (0-0.2); Basophils % (auto) 0.4 %; Eosinophils # (auto) 0.22 K/uL (0-0.50); Eosinophils % (auto) 4.7 %; Hematocrit (blood only) 34.4 % (34.1-44.9); Hemoglobin 10.7 g/dl (12.0-16.0); Immature Granulocytes # (auto) 0.03 K/uL (0.00-0.02); Immature Granulocytes % (auto) 0.6 %; Lymphocytes # (auto) 1.21 K/uL (1.2-3.4); Mean Corpuscular Hemoglobin 30.1 pg (25.0-34.0); Mean Corpuscular Hgb Conc 31.1 g/dL (32.0-36.0); Mean Corpuscular Volume 96.6 fL (80.0-100.0); Mean Platelet Volume 9.7 fL (9.4-12.3); Monocytes # (auto) 0.27 K/uL (0.24-0.82); Monocytes % (auto) 5.8 %; Neutrophils # (auto) 2.91 K/uL (1.4-6.5); Neutrophils % (auto) 62.5 %; Platelet Count 186 K/uL (130-400); RDW Coefficient of Variation 14.9 % (11.5-14.5); RDW Standard Deviation 51.8 fL (36.4-46.3); Red Blood Count 3.56 M/uL (3.93-5.22); White Blood Count 4.66 K/ul (4.8-10.8)
[2022-05-02 08:53] LABS: BUN Creatinine Ratio 26.3 (10-20); Calcium 8.4 mg/dl (8.5-10.1); Creatinine Clr Calc Pharmacy 32.7 ml/min; Est GFR (African American) 49.7 ml/min; Est GFR (Non-African American) 42.9 ml/min; Potassium 4.7 mmol/L (3.5-5.1)
[2022-05-02 09:39] VITALS: BP 107/67; PULSE 67
== END 2022-05-02 10:11 | DRG 947 ==
LOC: EDINP 16:28 → ED 16:28 → SUATTDRO 18:28 → 3E 19:30 → SUATTDRO 04-24 15:44 → 3E 04-24 16:42
DX: F17.210 Nicotine dependence, cigarettes, uncomplicated; M54.50 Low back pain, unspecified; E86.0 Dehydration; E11.9 Type 2 diabetes mellitus without complications; E83.42 Hypomagnesemia; R53.1 Weakness; R29.898 Other symptoms and signs involving the musculoskeletal system; Z66 Do not resuscitate; E44.1 Mild protein-calorie malnutrition; I25.10 Atherosclerotic heart disease of native coronary artery without angina pectoris; H81.10 Benign paroxysmal vertigo, unspecified ear; F06.8 Other specified mental disorders due to known physiological condition; G47.33 Obstructive sleep apnea (adult) (pediatric); N18.30 Chronic kidney disease, stage 3 unspecified; Z92.3 Personal history of irradiation; I25.2 Old myocardial infarction; U07.1 COVID-19; Z85.3 Personal history of malignant neoplasm of breast; Z79.82 Long term (current) use of aspirin

== ENCOUNTER 2024-10-24 13:41 | Inpatient (IN) ==
--- NOTE | 2024-10-24 14:35 | Emergency Department Note ---
Impression & Plan Acute dehydration, АННА (acute kidney injury), Non-ST elevation WV (NSTEMI), Elevated lactic acid level ED Provider Note HISTORY OF PRESENT ILLNESS: Patient is an 84-year-old female presenting due to concern for dehydration. 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 Reports that they were at a doctor's appointment yesterday and had laboratory workup performed and they were called this morning to get referred to the emergency department due to an elevated creatinine and BUN and concerns for dehydration. Patient is bedbound and reportedly has bullous pemphigoid syndrome and recently had a rash all over her body. She has been on doxycycline and high doses of prednisone, with her last dose being yesterday. Has not taken any today. She is complaining of "pain all over." She also keeps telling "help me." She denies any chest pain or shortness of breath. Denies any abdominal pain, nausea or vomiting. Family reports that patient has been significantly weaker over the last few days and has had decreased oral intake in the last 72 hours. ROS: as above PHYSICAL EXAM: Constitutional: Patient appears in no acute distress. HENT: Head: Normocephalic and atraumatic. Eyes: EOMI, PERRL Mouth/Throat: Mucous membranes dry. Neck: Trachea midline. Neck supple. Cardiovascular: Tachycardic with regular rhythm. No murmurs, rubs or gallops. Intact distal pulses. Pulmonary/Chest: No respiratory distress. Breath sounds clear and equal bilaterally. No wheezes or rales. Abdominal: Abdomen soft, no tenderness, rebound or guarding. Musculoskeletal: No edema, tenderness or deformity noted. Skin: Warm and dry. No rash, erythema, pallor or cyanosis Psychiatric: Appropriate mood and affect for situation. Neurological: Alert and keenly responsive. CN II-XII grossly intact, moving all extremities equally and fully. MDM: - Vitals signs showed tachycardia - History obtained via patient and patient's hydraulic press operator. History as above. - Chronic conditions affecting care: bullous pemphigoid; DM-2; CKD stage 3; CAD - Differential diagnoses include, but are not limited to: UTI; pneumonia; viral syndrome; ACS; electrolyte abnormality; dehydration - Order placed for continuous cardiac monitoring. At this time, monitor showed rate of 113 bpm with normal sinus rhythm, per my interpretation. - External medical records reviewed. [facility] visit [facility] from 10/23/2024 was reviewed. Patient was seen for a recheck. She lives at home with a long-term living hydraulic press operator. Family reports the patient has not had anything by mouth for 3 days. Laboratory workup was obtained at that visit and was reviewed by myself. Creatinine was noted to be 2.0 from 1.5 on 11/15/2023. - EKG image interpreted by myself showed normal sinus rhythm. Rate tachycardic at 119 bpm. QT 312. No acute ischemic changes. - Laboratory workup interpreted by myself showed hemoconcentration (WBC 14.39; Hgb 16.7); hypernatremia (Na 152); АННА (Cr 2.43); elevated lactate (2.5); hypermagnesemia (Mg 2.6); hypercalcemia (Ca 10.9); elevated troponin (59.6); normal procalcitonin - Blood cultures obtained - Patient appears clinically dehydrated and labs appear hemoconcentrated. - VBG normal - CXR images reviewed by myself and I. Pneumonia, per my interpretation. - Viral respiratory panel negative - UA ordered - Patient given 1L NS initially on arrival, but with her hyponatremia it was changed to D5W. Given 2g rocephin empirically - Discussion was had with rehabilitation case coordinator about patient's case and need for admission - Hospitalist, Dr. Steven, consulted for admission - [facility] ASSESSMENT AND PLAN: Diagnosis: Acute dehydration; АННА; NSTEMI; elevated lactate Plan: admit Past Med/Surg History Problem List (Updated 10/24/24 @ 17:04 by Asia Waldron MD) Elevated lactic acid level (Acute) Non-ST elevation WV (NSTEMI) (Acute) АННА (acute kidney injury) (Acute) Acute dehydration (Acute) Leukocytosis History of airway aspiration Bilateral leg weakness (Acute) COVID-19 (Acute) BPPV (benign paroxysmal positional vertigo) Memory loss Weakness (Acute) Fall (Acute) Acute dehydration (Acute) COVID-19 (Acute) Elevated troponin (Acute) Tobacco use CKD (chronic kidney disease), stage III Elevated troponin Generalized weakness Dizziness COVID-19 Esophagitis Diabetes mellitus, type II pt denies -- no medications Coffee ground emesis (Acute) Acute GI bleeding (Acute) Esophageal ulcer dx 10/2020 Bronchiectasis COPD (chronic obstructive pulmonary disease) inhaler prn CAD (coronary artery disease) Sleep apnea CPAP--states she is not currently using Hyperlipidemia GERD (gastroesophageal reflux disease) Depression Anxiety Medical History Cancer of left breast 2005--sx, chemo, radiation Myocardial Infarction 08/2017 "silent"--follows with Dr. Aguiar Surgical History History of esophagogastroduodenoscopy (EGD) last 01/2021 @ [facility] History of colonoscopy History of lumpectomy of left breast History of left breast biopsy malignant History of tooth extraction all teeth History of bilateral cataract extraction Family History Brother Family hx of colon cancer Other No family history of adverse response to anesthesia Social History Smoking Status: Former smoker Tobacco Type: Cigarettes Cigarettes Per Day: 5 a day; Second Hand Exposure: No; Do You Dip or Chew Tobacco: No; Hx Alcohol Use: No Hx Substance Use: No Preferred Language: Qatari Communication Ability: Effective 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 Automatic Required: No Beliefs That Will Affect Care: None Current Living Situation: Alone Feels Safe at Home: Yes Assistive Devices: Bedside Commode and Walker Allergies Allergies Allergy/AdvReac Type Severity Reaction Status Date / Time Penicillins Allergy Mild Rash Verified 11/02/21 08:27 Home Meds Home Medications Medication Instructions Recorded Confirmed aspirin 81 mg tablet,delayed 81 mg PO QAM 02/10/19 04/23/22 release cholecalciferol (vitamin D3) 50 2,000 unit PO QAM 02/10/19 04/23/22 mcg (2,000 unit) tablet (Vitamin D3) multivitamin 1 tab PO QAM 02/10/19 04/23/22 albuterol sulfate 90 mcg/actuation 2 puff inhalation Q6H PRN 06/06/19 04/23/22 aerosol inhaler (ProAir HFA) Shortness Of Breath vitamins A,C,I-itap-bncmou 2,148 1 tab PO QAM 06/06/19 04/23/22 mcg-113 mg-45 mg-17.4 mg tablet (PreserVision AREDS) alprazolam 0.5 mg tablet 0.5 mg PO BID PRN Anxiety 10/16/20 04/23/22 mirtazapine 15 mg tablet 22.5 mg PO HS 10/26/21 04/23/22 trazodone 50 mg tablet 25 mg PO HS 10/26/21 04/23/22 buspirone 10 mg tablet 10 mg PO BID 04/05/22 04/23/22 ferrous sulfate 325 mg (65 mg 325 mg PO BID 04/05/22 04/23/22 iron) tablet Previous Rx's Medication Instructions Recorded omeprazole 40 mg capsule,delayed 40 mg PO BID #180 caps 01/19/21 release Results & Data (ED) Vital Signs Vital Signs - 24 hr 10/24/24 14:08 10/24/24 14:08 10/24/24 14:19 Temperature 37.3 C Temperature Source Axillary Pulse Rate 115 H Respiratory Rate 22 22 Respiratory Depth Normal Blood Pressure 100/78 Blood Pressure Mean 85 Pulse Oximetry 93 94 Oxygen Delivery Method Room Air Room Air Room Air Sepsis New/Unexplained Change in Mental Status N/A Sepsis Action Taken by Nursing No Action Required 10/24/24 14:59 10/24/24 15:07 Temperature Temperature Source Pulse Rate 119 H Respiratory Rate Respiratory Depth Blood Pressure Blood Pressure Mean Pulse Oximetry Oxygen Delivery Method Room Air Sepsis New/Unexplained Change in Mental Status Sepsis Action Taken by Nursing Laboratory Data 10/24/24 14:50 10/24/24 14:50 Lab Results 10/24/24 10/24/24 Range/Units 14:50 Unknown WBC 14.39 H (4.8-10.8) K/ul RBC 5.51 H (4.20-5.40) M/uL Hgb 16.7 H (12.0-16.0) g/dl Hct 52.3 H (37.0-47.0) % MCV 94.9 (80.0-100.0) fL MCH 30.3 (25.0-34.0) pg MCHC 31.9 L (32.0-36.0) g/dL RDW Std Deviation 52.0 H (36.4-46.3) fL RDW Coeff of Thierry 15.3 H (11.5-14.5) % Plt Count 244 (130-400) K/uL MPV 9.4 (9.4-12.4) fL Immature Gran % (Auto) 3.0 % Neut % (Auto) 81.4 % Lymph % (Auto) 7.5 % Stevens % (Auto) 7.8 % Eos % (Auto) 0.0 % Baso % (Auto) 0.3 % Neut # (Auto) 11.72 H (1.40-6.50) K/uL Lymph # (Auto) 1.08 L (1.20-3.40) K/uL Stevens # (Auto) 1.12 H (0.11-0.59) K/uL Eos # (Auto) 0.00 (0.00-0.50) K/uL Baso # (Auto) 0.04 (0.00-0.20) K/uL Immature Gran # (Auto) 0.43 H (0.01-0.20) K/uL PT Cancelled INR Cancelled APTT Cancelled PTT Ratio Cancelled VBG pH 7.38 (7.36-7.41) VBG pCO2 41 (38-50) mmHg VBG pO2 31 mmHg VBG HCO3 24 mmol/L VBG O2 Saturation < 60.0 % VBG Base Excess -0.9 mEq/L Sodium 152 H (136-145) mmol/L Potassium 4.9 (3.5-5.1) mmol/L Chloride 114 H (98-107) mmol/L Carbon Dioxide 25 (21-32) mmol/L Anion Gap 13 H (3-11) BUN 103 H (6-23) mg/dl Creatinine 2.43 H (0.6-1.2) mg/dl Est Cr Clr Drug Dosing 16.8 ml/min eGFR 19.02 BUN/Creatinine Ratio 42.4 H (10-20) Glucose 167 H (70-99(Fasting)) mg/dl Lactate 2.5 H* (0.4-2.0) mmol/L Calcium 10.9 H (8.6-10.3) mg/dl Magnesium 2.6 H (1.7-2.4) mg/dl Total Bilirubin 1.0 (0.2-1.0) mg/dl Direct Bilirubin TNP AST 17 (13-39) U/L ALT 33 (7-52) U/L Alkaline Phosphatase 61 (34-104) U/L Troponin I High Sens 59.6 H* (0-14) pg/ml Total Protein 7.2 (6.0-8.3) gm/dl Albumin 3.6 (3.4-5.0) gm/dl Procalcitonin 0.38 (0-0.5) ng/ml Adenovirus (PCR) Not Detected (NotDetected) B. pertussis DNA (PCR) Not Detected (NotDetected) B.parapertussis DNA PCR Not Detected (NotDetected) C. pneumoniae DNA (PCR) Not Detected (NotDetected) Coronavirus OC43 (PCR) Not Detected (NotDetected) Coronavirus HKU1 (PCR) Not Detected (NotDetected) Coronavirus 229E (PCR) Not Detected (NotDetected) SARS-CoV-2 (PCR) Not Detected (NotDetected) Coronavirus NL63 (PCR) Not Detected (NotDetected) Human Metapneumovir PCR Not Detected (NotDetected) Influenza Type A (PCR) Not Detected (NotDetected) Influenza Type B (PCR) Not Detected (NotDetected) M. pneumoniae (PCR) Not Detected (NotDetected) Parainfluenza 1 (PCR) Not Detected (NotDetected) Parainfluenza 2 (PCR) Not Detected (NotDetected) Parainfluenza 3 (PCR) Not Detected (NotDetected) Parainfluenza 4 (PCR) Not Detected (NotDetected) RSV (PCR) Not Detected (NotDetected) Entero/Rhino (PCR) Not Detected (NotDetected) Administered Medications Discontinued Medications Sodium Chloride (Nss) 1,000 mls @ 999 mls/hr IV .Q1H1M ONE Stop: 10/24/24 14:51 Last Admin: 10/24/24 14:59 Dose: 999 mls/hr Documented By: MICHAEL Sodium Chloride (Nss) 1,000 mls @ 999 mls/hr IV .Q1H1M ONE Stop: 10/24/24 16:17 Last Admin: 10/24/24 16:01 Dose: Not Given Documented By: CEF Ceftriaxone Sodium (Rocephin) 2,000 mg in 50 mls @ 100 mls/hr IV NOW STA Stop: 10/24/24 15:46 Last Infusion: 10/24/24 16:05 Dose: Infused Documented By: Admin: 10/24/24 15:35 Dose: 100 mls/hr Documented By: CEF Imaging Data Radiologist's Impression: Chest X-Ray 10/24/24 13:51 XR chest 1V portable HISTORY: 84 years-old Female Sepsis acute sepsis COMPARISON: 04/23/2022 TECHNIQUE: AP view of the chest FINDINGS: Cardiac silhouette is enlarged. Patient positioning limits this study. Right hemidiaphragmatic elevation with linear right basilar densities. No pneumothorax, pleural effusion or overt pulmonary edema. Bones appear grossly intact. IMPRESSION: 1. Cardiomegaly without pulmonary edema. 2. Right hemidiaphragmatic elevation with right basilar densities, likely atelectatic. ACT 112: Negative or not required by law. The above report was generated using voice recognition software. It may contain grammatical, syntax or spelling errors. Electronically signed by: Bernard Peralta M.D. 10/24/2024 2:45 PM Discharge Plan Visit Data Chief Complaint: Dehydration ED Provider: Asia Waldron Discharge Problem: Acute dehydration, АННА (acute kidney injury), Non-ST elevation WV (NSTEMI), Elevated lactic acid level Forms Stand Alone Forms: [facility] [employer] Prescriptions Prescriptions: No Action multivitamin Tablet 1 tab PO QAM aspirin 81 mg Tablet,Delayed Release (Dr/Ec) 81 mg PO QAM cholecalciferol (vitamin D3) [Vitamin D3] 2,000 unit Tablet 2,000 unit PO QAM albuterol sulfate [ProAir HFA] 90 mcg/actuation Hfa Aerosol Inhaler 2 puff INHALATION Q6H PRN (Reason: Shortness Of Breath) PreserVision AREDS 7,160-113-100 [id number] Tablet 1 tab PO QAM alprazolam 0.5 mg tablet 0.5 mg PO BID PRN (Reason: Anxiety) trazodone 50 mg Tablet 25 mg PO HS mirtazapine 15 mg Tablet 22.5 mg PO HS buspirone 10 mg tablet 10 mg PO BID ferrous sulfate 325 mg (65 mg iron) tablet 325 mg PO BID omeprazole 40 mg capsule,delayed release(DR/EC) 40 mg PO BID Qty: 180 3RF Referrals Referrals: Bandar Nieves MD [Outside Practitioners] -
--- NOTE | 2024-10-24 14:46 | XRay Report ---
XR chest 1V portable HISTORY: 84 years-old Female Sepsis acute sepsis COMPARISON: 04/23/2022 TECHNIQUE: AP view of the chest FINDINGS: Cardiac silhouette is enlarged. Patient positioning limits this study. Right hemidiaphragmatic elevat ion with linear right basilar densities. No pneumothorax, pleural effusion or overt pulmonary edema. Bones appear grossly intact. IMPRESSION: 1. Cardiomegaly without pulmonary edema. 2. Right hemidiaphragmatic elevation with right basilar densities, likely atelectatic. ACT 112: Negative or not required by law. The above report was generated using voice recognition software. It may contain grammatical, syntax o r spelling errors. Electronically signed by: Bernard Peralta M.D. 10/24/2024 2:45 PM
[2024-10-24] MEDS: SODIUM CHLORIDE 0.9% 1,000 ML IV ONE ×2 (14:59→16:01)
[2024-10-24 15:02] LABS: Base Excess VBG -0.9 mEq/L; HCO3 VBG 24 mmol/L; Oxygen Saturation VBG < 60.0 %; PCO2 VBG 41 mmHg (38-50); PO2 VBG 31 mmHg; pH VBG 7.38 (7.36-7.41)
[2024-10-24 15:15] LABS: Basophils # (auto) 0.04 K/uL (0.00-0.20); Basophils % (auto) 0.3 %; Hematocrit (blood only) 52.3 % (37.0-47.0); Hemoglobin 16.7 g/dl (12.0-16.0); Immature Granulocytes # (auto) 0.43 K/uL (0.01-0.20); Lymphocytes # (auto) 1.08 K/uL (1.20-3.40); Lymphocytes % (auto) 7.5 %; Mean Corpuscular Hemoglobin 30.3 pg (25.0-34.0); Mean Corpuscular Hgb Conc 31.9 g/dL (32.0-36.0); Mean Corpuscular Volume 94.9 fL (80.0-100.0); Mean Platelet Volume 9.4 fL (9.4-12.4); Monocytes # (auto) 1.12 K/uL (0.11-0.59); Monocytes % (auto) 7.8 %; Neutrophils # (auto) 11.72 K/uL (1.40-6.50); Neutrophils % (auto) 81.4 %; Platelet Count 244 K/uL (130-400); RDW Coefficient of Variation 15.3 % (11.5-14.5); Red Blood Count 5.51 M/uL (4.20-5.40); White Blood Count 14.39 K/ul (4.8-10.8)
[2024-10-24] MEDS: cefTRIAXone SODIUM 2,000 MG/50 ML BAG IV STA (15:35)
--- NOTE | 2024-10-24 15:37 | Electrocardiogram Report ---
Test Reason : Blood Pressure : */* mmHG Vent. Rate : 119 BPM Atrial Rate : 119 BPM P-R Int : 136 ms QRS Dur : 72 ms QT Int : 312 ms P-R-T Axes : 29 0 46 degrees QTcB Int : 438 ms Sinus tachycardia Nonspecific T wave abnormality Abnormal ECG When compared with ECG of 23-Apr-2022 17:34, Premature ventricular complexes are no longer Present Criteria for Septal infarct are no longer Present Nonspecific T wave abnormality, improved in Inferior leads Confirmed by Mark Garcia ([id number]) on 10/24/2024 3:37:27 PM Referred By: REFERRED SELF Confirmed By: Mark Garcia
[2024-10-24 15:41] LABS: Alanine Aminotransferase 33 U/L (7-52); Albumin Level 3.6 gm/dl (3.4-5.0); Alkaline Phosphatase 61 U/L (34-104); Anion Gap 13 (3-11); Aspartate Aminotransferase 17 U/L (13-39); BUN Creatinine Ratio 42.4 (10-20); Blood Urea Nitrogen 103 mg/dl (6-23); Calcium 10.9 mg/dl (8.6-10.3); Carbon Dioxide 25 mmol/L (21-32); Chloride 114 mmol/L (98-107); Creatinine Clr Calc Pharmacy 16.8 ml/min; Glucose 167 mg/dl (70-99(Fasting)); Magnesium 2.6 mg/dl (1.7-2.4); Potassium 4.9 mmol/L (3.5-5.1); Sodium 152 mmol/L (136-145); Total Protein 7.2 gm/dl (6.0-8.3); Troponin I High Sensitivity 59.6 pg/ml (0-14)
[2024-10-24 16:06] LABS: Adenovirus PCR Not Detected (NotDetected); Bordetella parapertussis PCR Not Detected (NotDetected); Bordetella pertussis PCR Not Detected (NotDetected); Chlamydia pneumoniae PCR Not Detected (NotDetected); Coronavirus 229E PCR Not Detected (NotDetected); Coronavirus CoV-2 (COVID19)PCR Not Detected (NotDetected); Coronavirus HKU1 PCR Not Detected (NotDetected); Coronavirus NL63 PCR Not Detected (NotDetected); Coronavirus OC43PCR Not Detected (NotDetected); Human Metapneumovirus PCR Not Detected (NotDetected); Influenza A PCR Not Detected (NotDetected); Influenza B PCR Not Detected (NotDetected); Mycoplasma pneumoniae PCR Not Detected (NotDetected); Parainfluenza Virus 1 PCR Not Detected (NotDetected); Parainfluenza Virus 2 PCR Not Detected (NotDetected); Parainfluenza Virus 3 PCR Not Detected (NotDetected); Parainfluenza Virus 4 PCR Not Detected (NotDetected); Respiratory Syncytial VirusPCR Not Detected (NotDetected); Rhinovirus/Enterovirus PCR Not Detected (NotDetected)
--- NOTE | 2024-10-24 16:54 | History & Physical Report ---
Date of Service October 24, 2024 Assessment & Plan (1) Sepsis: (2) Bullous pemphigoid: (3) АННА (acute kidney injury): (4) Hypernatremia: (5) Elevated lactic acid level: (6) Elevated troponin: (7) Diabetes mellitus, type II: (8) Anxiety: (9) Depression: Plan 84 year old woman with a PMH of CAD, DM II, COPD, CKD III, anxiety, SILVIA, history of tobacco, bullous pemphigoid diagnosed last month who was called by PCP to come to ER for abnormal labs CXR noted cardiomegaly without pulm edema. Right hemidiaphragmatic elevation with right basilar densities likely atelectatic Labs notable for leukocytosis of 14.39, Hb of 16.7, HCt 52.3, Na of 152, Cl 114 Cr 2.43, Ca 10.9, trop 59.6. Lactate improved from 2.5 to 1.4 Patient has tachycardia, leukocytosis and lactate of 2.5; hence meets SIRS criteria Hence Sepsis is possible though these could also be from dehydration based on history, exam and findings (including increased Hb/Hct above patient's normal suggestive of hemoconcentration) H/o aspiration in the past Will change home po doxycycline to IV for now and continue ceftriaxone and flagyl Follow up infectious workup Get Video swallow study and FINGERPRINT CLASSIFIER eval Aspiration precautions Continue home pureed diet for now Got IVF NSS bolus in ER Currently on D5W. Repeat BMP and monitor Adjust fluids and rate as needed Elevated trops may be due to demand No new ST changes. Denied chest pain/SOB Trend trop and monitor tele Continue home prednisone dose Continue other home meds Code status: DNR I spent a total of 80 minutes coordinating, documenting and providing care for this patient excluding time spent in performance of separately billed services History of Present Illness Chief Complaint: dehydrated Primary Care Provider: Nel Ash, This is an 84yo F with a PMH of CAD, DM II, COPD, CKD III, anxiety, SILVIA, history of tobacco, bullous pemphigoid diagnosed last month and other medical problems listed below who presents with abnormal lab work. History primarily obtained from sister in law/AGNES Packhy at bedside due to patient's cognitive state. Was diagnosed with bullous pemphigoid in September and had blisters all over body extending to mouth and throat. Was tolerating pureed foods until 5 days ago but with increased mucous production she has not been able to tolerate much PO, whi ch prompted visit to PCP this AM. Due to abnormal labwork and concern for dehydration was directed to ED for further evaluation. Patient lives with alf caregivers and Lucy is involved with care but lives out of town. Lucy and caregiver note significant decline in mobility as well as oral intake over the past few weeks due to bullous pemphigoid. Followed up with dermatology this morning who noted lesions have significantly proved with topical clobetasol, oral doxycycline, prednisone. Prednisone decreased from 40mg daily to 20mg daily. Was also started on Cymbalta 30 mg and gabapentin 100 mg TID this AM to help with pain and depression resulting from health condition. Also started on nystatin for thrush. Per review, did have a swallow study a few years ago that showed evidence of aspiration. Has pain at site of lesions in mouth and all over body that are tender. No F/C, CP, SOB or abdominal pain. Allergies Allergy/AdvReac Type Severity Reaction Status Date / Time Penicillins Allergy Mild Rash Verified 11/02/21 08:27 Home Medications Medication Instructions Recorded Confirmed Type aspirin 81 mg tablet,delayed 81 mg PO QAM 02/10/19 10/24/24 History release cholecalciferol (vitamin D3) 50 2,000 unit PO QAM 02/10/19 10/24/24 History mcg (2,000 unit) tablet (Vitamin D3) multivitamin 1 tab PO QAM 02/10/19 10/24/24 History albuterol sulfate 90 mcg/actuation 2 puff inhalation Q6H PRN 06/06/19 10/24/24 History aerosol inhaler (ProAir HFA) Shortness Of Breath vitamins A,C,V-uvtm-kfyssh 2,148 1 tab PO QAM 06/06/19 10/24/24 History mcg-113 mg-45 mg-17.4 mg tablet (PreserVision AREDS) omeprazole 40 mg capsule,delayed 40 mg PO BID #180 caps 01/19/21 10/24/24 Rx release mirtazapine 15 mg tablet 22.5 mg PO HS 10/26/21 10/24/24 History buspirone 10 mg tablet 10 mg PO BID 04/05/22 10/24/24 History ferrous sulfate 325 mg (65 mg 325 mg PO BID 04/05/22 10/24/24 History iron) tablet acetaminophen 650 mg 650 mg PO UD 10/24/24 10/24/24 History tablet,extended release (Arthritis Pain Relief (acetaminophen) ER) alprazolam 0.25 mg tablet 0.25 mg PO BID PRN Anxiety 10/24/24 10/24/24 History cetirizine 10 mg tablet 10 mg PO BID 10/24/24 10/24/24 History clobetasol 0.05 % topical ointment 1 applic topical BID 10/24/24 10/24/24 History cyanocobalamin (vitamin B-12) 2,000 mcg PO DAILY 10/24/24 10/24/24 History 1,000 mcg capsule diphenhydramine HCl 25 mg capsule 25 mg PO HS PRN Itching 10/24/24 10/24/24 History (Benadryl) doxycycline monohydrate 100 mg 100 mg PO BID 10/24/24 10/24/24 History tablet duloxetine 30 mg capsule,delayed 30 mg PO DAILY 10/24/24 10/24/24 History release famotidine 20 mg tablet 20 mg PO BID 10/24/24 10/24/24 History gabapentin 100 mg capsule 100 mg PO TID 10/24/24 10/24/24 History meclizine 12.5 mg tablet 12.5 mg PO TID PRN Vertigo 10/24/24 10/24/24 History nystatin 100,000 unit/mL oral 1 ml PO QID 10/24/24 10/24/24 History suspension prednisone 20 mg tablet 40 mg PO DAILY 10/24/24 10/24/24 History tiotropium 2.5 mcg-olodaterol 2.5 2 puff inhalation DAILY 10/24/24 10/24/24 History mcg/actuation mist for inhalation (Stiolto Respimat) triamcinolone acetonide 0.1 % 1 applic topical BID 10/24/24 10/24/24 History topical ointment Past Med/Surg History Problem List (Updated 10/24/24 @ 17:48 by Bri Ma PA-C) Bullous pemphigoid Sepsis Hypernatremia Elevated lactic acid level (Acute) Non-ST elevation [place] (NSTEMI) (Acute) АННА (acute kidney injury) (Acute) History of airway aspiration Bilateral leg weakness (Acute) COVID-19 (Acute) BPPV (benign paroxysmal positional vertigo) Memory loss Weakness (Acute) Fall (Acute) Acute dehydration (Acute) COVID-19 (Acute) Elevated troponin (Acute) Tobacco use CKD (chronic kidney disease), stage III Elevated troponin Generalized weakness Dizziness COVID-19 Esophagitis Diabetes mellitus, type II pt denies -- no medications Coffee ground emesis (Acute) Acute GI bleeding (Acute) Esophageal ulcer dx 10/2020 Bronchiectasis COPD (chronic obstructive pulmonary disease) inhaler prn CAD (coronary artery disease) Sleep apnea CPAP--states she is not currently using Hyperlipidemia GERD (gastroesophageal reflux disease) Depression Anxiety Medical History Cancer of left breast 2005--sx, chemo, radiation Myocardial Infarction 08/2017 "silent"--follows with Dr. Aguiar Surgical History History of esophagogastroduodenoscopy (EGD) last 01/2021 @ [facility] History of colonoscopy History of lumpectomy of left breast History of left breast biopsy malignant History of tooth extraction all teeth History of bilateral cataract extraction Family History Brother Family hx of colon cancer Other No family history of adverse response to anesthesia Social History Smoking Status: Former smoker Tobacco Type: Cigarettes Cigarettes Per Day: 5 a day; Second Hand Exposure: No; Do You Dip or Chew Tobacco: No; Hx Alcohol Use: No Hx Substance Use: No Preferred Language: Azeri Communication Ability: Impaired Establishment Guide Required: No Beliefs That Will Affect Care: None Current Living Situation: Alone and Other Current Living Situation Comment: live in caregivers Feels Safe at Home: Yes Safety Concerns: Feels Safe At This Time Assistive Devices: Glasses Review of Systems Review of Systems: Unobtainable due to cognitive status Physical Exam Physical Exam: Please see Dr. Steven's addendum for physical exam, assessment and plan. Results & Data Results & Data Vital Signs (Past 12 Hours) Vital Signs Temp Pulse Resp BP Pulse Ox O2 Del Method 02/14/25 15:07 Room Air 10/24/24 14:59 119 H 10/24/24 14:19 22 94 Room Air 10/24/24 14:08 Room Air 10/24/24 14:08 37.3 C 115 H 22 100/78 93 Room Air Laboratory Results Short CBC 10/24/24 Range/Units 14:50 WBC 14.39 H (4.8-10.8) K/ul Hgb 16.7 H (12.0-16.0) g/dl Hct 52.3 H (37.0-47.0) % Plt Count 244 (130-400) K/uL BMP 10/24/24 14:50 Sodium 152 H Potassium 4.9 Chloride 114 H Carbon Dioxide 25 BUN 103 H Creatinine 2.43 H Glucose 167 H Calcium 10.9 H Liver Function 10/24/24 Range/Units 14:50 Total Bilirubin 1.0 (0.2-1.0) mg/dl Direct Bilirubin TNP AST 17 (13-39) U/L ALT 33 (7-52) U/L Alkaline Phosphatase 61 (34-104) U/L Albumin 3.6 (3.4-5.0) gm/dl Diagnostic Findings Chest X-Ray 10/24/24 13:51 XR chest 1V portable HISTORY: 84 years-old Female Sepsis acute sepsis COMPARISON: 04/23/2022 TECHNIQUE: AP view of the chest FINDINGS: Cardiac silhouette is enlarged. Patient positioning limits this study. Right hemidiaphragmatic elevation with linear right basilar densities. No pneumothorax, pleural effusion or overt pulmonary edema. Bones appear grossly intact. IMPRESSION: 1. Cardiomegaly without pulmonary edema. 2. Right hemidiaphragmatic elevation with right basilar densities, likely atelectatic. ACT 112: Negative or not required by law. The above report was generated using voice recognition software. It may contain grammatical, syntax or spelling errors. Electronically signed by: Bernard Peralta M.D. 10/24/2024 2:45 PM Supervising Physician Co-Signing Physician Notes 84 year old woman with a PMH of CAD, DM II, COPD, CKD III, anxiety, SILVIA, history of tobacco, bullous pemphigoid diagnosed last month who was called by PCP to come to ER for abnormal labs Patient has severe case of bullous pemphigoid with painful sores in the mouth, blisters over hands, trunk Caregiver and POA at bedside Reports cutaneous blisters/lesions are improved since last month Patient has had poor oral intake over the past few days and also cough No report of fever, chills, nausea, vomiting, abd pain, diarrhea On exam, General: No acute distress, ill appearing Eyes: PERRL, conjunctivae normal, not pale, anicteric sclerae, EOM intact bilaterally ENMT: Dry oral mucosa, Sores around mouth and on mucosal Respiratory: Normal respiratory effort, no respiratory distress, diminished breath sounds Cardiovascular: RRR S1 S2 Gastrointestinal (Abdomen): Abdomen is not distended, soft, non-tender to palpation, no guarding, no palpable hepatosplenomegaly, normal bowel sounds Musculoskeletal: No pedal edema Skin: Lesions in different stages of healing on trunk and extremities Neurologic: Alert and oriented x 3, sensation grossly intact CXR noted cardiomegaly without pulm edema. Right hemidiaphragmatic elevation with right basilar densities likely atelectatic Labs notable for leukocytosis of 14.39, Hb of 16.7, HCt 52.3, Na of 152, Cl 114 Cr 2.43, Ca 10.9, trop 59.6. Lactate improved from 2.5 to 1.4 Dehydration Acute kidney injury Hypernatremia Patient has tachycardia, leukocytosis and lactate of 2.5; hence meets SIRS criteria Hence Sepsis is possible though these could also be from dehydration based on history, exam and findings (including increased Hb/Hct above patient's normal suggestive of hemoconcentration) H/o aspiration in the past Will change home po doxycycline to IV for now and continue ceftriaxone and flagyl Follow up infectious workup Get Video swallow study and FINGERPRINT CLASSIFIER eval Aspiration precautions Continue home pureed diet for now Got IVF NSS bolus in ER Currently on D5W. Repeat BMP and monitor Adjust fluids and rate as needed Elevated trops may be due to demand No new ST changes. Denied chest pain/SOB Trend trop and monitor tele Continue home prednisone dose Continue other home meds
[2024-10-24 17:42] LABS: INR 1.2 (0.9-1.1); Partial Thromboplastin Ratio 0.9; Partial Thromboplastin Time 23 Seconds (21-31); Prothrombin Time 12.9 Seconds (9.0-12.0)
[2024-10-24 17:43] LABS: Troponin I High Sensitivity 35.9 pg/ml (0-14)
[2024-10-24] MEDS ORDERED: GLUCOSE 10 TAB/TUBE PO PRN (17:51)
[2024-10-24] MEDS ORDERED: GLUCOSE 40% GEL 15 GM TUBE PO PRN (17:51)
[2024-10-24] MEDS ORDERED: CARBOHYDRATES FOR HYPOGLYCEMIA PO PRN (17:51)
[2024-10-24] MEDS ORDERED: GLUCAGON FOR INJ 1 MG VIAL SQ PRN (17:51)
[2024-10-24] MEDS ORDERED: DEXTROSE 50% 50 ML SYRINGE IV PRN (17:51)
[2024-10-24 18:03] LABS: Calcium 6.1 mg/dl (8.6-10.3); Creatinine Clr Calc Pharmacy 28.3 ml/min; Potassium 2.9 mmol/L (3.5-5.1)
[2024-10-24] MEDS: DOXYCYCLINE HYCLATE 100 MG in DEXTROSE 5% MINI-B 100 ML IV SCH (18:37)
[2024-10-24] MEDS ORDERED: ALBUTEROL HFA 8 GM INHALER INH PRN (20:11)
[2024-10-24] MEDS ORDERED: MECLIZINE 12.5 MG TAB PO PRN (20:11)
[2024-10-24] MEDS ORDERED: POLYETHYLENE (MIRALAX) 17 GM PACK PO PRN (20:11)
[2024-10-24] MEDS ORDERED: diphenhydrAMINE Capsule 25 MG CAP PO PRN (20:11)
[2024-10-24] MEDS ORDERED: ONDANSETRON INJ 2 MG/ML 2 ML VIAL IV PRN (20:11)
[2024-10-24] MEDS ORDERED: ACETAMINOPHEN 325 MG TAB PO PRN (20:11)
[2024-10-24] MEDS ORDERED: ALPRAZolam 0.25 MG TABLET PO PRN (20:11)
[2024-10-24] MEDS: guaiFENesin 600 MG TABCR PO SCH (20:12)
[2024-10-24] MEDS: metroNIDAZOLE 500 MG/100 ML BAG IV SCH (20:42)
[2024-10-24] MEDS: DEXTROSE 5% 1,000 ML IV SCH (20:46)
[2024-10-24] MEDS: INSULIN ASPART PER UNIT CHARGE SC SCH (20:50)
[2024-10-24] MEDS: busPIRone 5 MG TAB PO SCH (20:58)
[2024-10-24] MEDS: FERROUS SULFATE 325 MG TAB PO SCH (20:59)
[2024-10-24] MEDS: FAMOTIDINE 20 MG TAB PO SCH (20:59)
[2024-10-24] MEDS: CETIRIZINE HCL 10 MG TABLET PO SCH (20:59)
[2024-10-24] MEDS: MIRTAZAPINE TAB 15 MG TAB PO SCH (20:59)
[2024-10-24] MEDS: PANTOprazole 40 MG TAB PO SCH (21:00)
--- OUTSIDE RECORDS SUMMARY | 2024-10-24 21:03 | External Medical Summary | Summary of Care ---
Author Name Unknown Organization [facility] Address [address] [place] [address] Phone [phone] Care Team Providers Care Autism Specialist Name Role Phone Ezequiel ROBBINS MD, Bandar Sims Primary Care Provider [phone] Reason for Visit * Reason Comments Re-Check Encounter Details Date Type Department Care Team (Latest Contact Info) Description 10/23/2024 3:00 PM EST Office Visit Family Practice [facility] [address] [place] [address] Nel Ash, [address] [place] [address] Bullous pemphigoid*; Anorexia; Chronic cough; Dysphagia, unspecified type; Current moderate episode of major depressive disorder, unspecified whether recurrent (HCC); Anxiety state; Centrilobular emphysema (HCC); Bronchiectasis without complication (HCC); Coronary artery disease involving [place] coronary artery of [place] heart without angina pectoris; Diabetes mellitus with stage 3 chronic kidney disease (HCC); Exudative age-related macular degeneration of left eye with active choroidal neovascularization ([facility]); Old MS (myocardial infarction); RLS (restless legs syndrome); Esophageal stricture; Stage 3b chronic kidney disease (HCC); Type 2 diabetes mellitus with hemoglobin A1c goal of less than 8.0% (HCC); Dehydration; Generalized weakness; Ambulatory dysfunction; Physical deconditioning; COPD, group B, by GOLD 2017 classification (HCC); Major depressive disorder, single episode, moderate (HCC) Allergies Active Allergy Reactions Criticality Noted Date Comments Penicillins Rash 08/28/2000 documented as of this encounter (statuses as of 10/24/2024) Medications Sentry Senior Oral Tablet Take 1 Tablet by mouth in the morning. 3 Active Stiolto Respimat 2.5-2.5 MCG/ACT Inhalation Aerosol Solution (Tiotropium-Olo daterol) Inhale 2 Puffs by mouth in the morning. 4 g 11 3 Active Meclizine HCl 12.5 MG Oral Tablet (Antivert)Indic ations:Benign paroxysmal positional vertigo, unspecified laterality Take 1 Tablet by mouth 3 times a day as needed for Dizziness. 30 Tablet 1 4 Active Omeprazole 40 MG Oral Capsule Delayed Release (PriLOSEC)Indic ations:Gastroes ophageal reflux disease with esophagitis without hemorrhage TAKE 1 CAPSULE BY MOUTH IN THE MORNING AND AT BEDTIME 180 Capsule 1 4 Active Arthritis Pain Relief 650 MG Oral Tablet Extended Release (Acetaminophen ER)Indications: DDD (degenerative disc disease), lumbar TAKE 2 TABLETS BY MOUTH AT BEDTIME, 2 TABS IN THE MORNING, MAY TAKE 2 MORE 8 HOURS LATER 120 Tablet 5 4 Active D3 High Potency 50 MCG (1999 UT) Oral Capsule (Cholecalcifero l) TAKE 1 CAPSULE BY MOUTH ONCE DAILY IN THE MORNING 30 Capsule 5 4 Active Ferrous Sulfate 325 (65 Fe) MG Oral Tablet (Feosol) TAKE 1 TABLET BY MOUTH IN THE MORNING AND AT BEDTIME 60 Tablet 5 4 Active Mirtazapine 15 MG Oral Tablet (Remeron)Indica tions:Major depressive disorder, single episode, moderate (HCC) TAKE 1 AND 1/2 TABLET BY MOUTH AT BEDTIME 45 Tablet 5 4 Active busPIRone HCl 10 MG Oral Tablet (Buspar)Indicat ions:Anxiety state TAKE 1 TABLET BY MOUTH IN THE MORNING AND AT BEDTIME 60 Tablet 5 4 Active Aspirin Low Dose 81 MG Oral Tablet Delayed Release (aspirin enteric coated)Indicati ons:Atheroscler otic heart disease of [place] coronary artery without angina pectoris TAKE 1 TABLET BY MOUTH ONCE DAILY IN THE MORNING 30 Tablet 5 4 Active PreserVision AREDS Oral Capsule TAKE 1 CAPSULE BY MOUTH ONCE DAILY IN THE MORNING 30 Capsule 5 4 Active Famotidine 20 MG Oral Tablet (Pepcid) Take 1 Tablet by mouth in the morning and 1 Tablet before bedtime. 60 Tablet 4 Active Cetirizine HCl 10 MG Oral Tablet (ZyrTEC) Take 1 Tablet by mouth in the morning and 1 Tablet before bedtime. 60 Tablet 4 Active diphenhydrAMINE HCl 25 MG Oral Tablet (Benadryl Allergy) Take 1 Tablet by mouth at bedtime as needed for Itching. Active Triamcinolone Acetonide 0.1 % External Ointment (Aristocort) Apply to rash on chest, back, arms, legs, buttock, hands twice a day for 2-4 weeks 454 g 1 5 Active B-12 1000 MCG Oral Tablet TAKE TWO TABLETS BY MOUTH 8AM 60 Tablet 11 5 Active Doxycycline Monohydrate 100 MG Oral CapsuleIndicati ons:Bullous pemphigoid Take 1 Capsule by mouth in the morning and 1 Capsule before bedtime. Take with food. 180 Capsule 5 Active predniSONE 20 MG Oral Tablet (Deltasone) Take 3 tablets daily for 5 days, then 2 tablets daily for 5 days, then 1 tablet daily for 5 days 30 Tablet 5 Active predniSONE 20 MG Oral Tablet (Deltasone) Take 2 Tablets by mouth in the morning. 50 Tablet 5 Active ALPRAZolam 0.25 MG Oral Tablet (xaNAX)Indicati ons:Anxiety state TAKE ONE TABLET BY MOUTH IN THE MORNING AND ONE TABLET AT BEDTIME NEEDED FOR ANXIETY 30 Tablet 5 Active Clobetasol Propionate 0.05 % External Ointment (Temovate) Apply to active rash on trunk and hands daily 60 g 5 5 Active DULoxetine HCl 30 MG Oral Capsule Delayed Release Particles (Cymbalta)Indic ations:Bullous pemphigoid Take 1 Capsule by mouth in the morning. Do not cut, crush or chew. 30 Capsule 5 5 Active Gabapentin 100 MG Oral Capsule (Neurontin)[place] cations:Bullous pemphigoid Take 1 Capsule by mouth in the morning and 1 Capsule at noon and 1 Capsule before bedtime. 90 Capsule 5 5 Active Nystatin 432550 UNIT/ML Mouth/Throat SuspensionIndic ations:Chronic cough Take 1 mL by mouth in the morning and 1 mL at noon and 1 mL in the evening and 1 mL before bedtime. For thrush.. 60 mL 1 5 025 Active traZODone HCl 50 MG Oral Tablet (Desyrel)Indica tions:Major depressive disorder, single episode, moderate (HCC) TAKE 1/2 TABLET BY MOUTH AT BEDTIME 15 Tablet 5 4 025 Discontinued Gabapentin 100 MG Oral Capsule (Neurontin) TAKE 1 CAPSULE BY MOUTH ONCE DAILY AT BEDTIME 30 Capsule 5 4 025 Discontinued Niacinamide 500 MG Oral Tablet Take one tablet in the morning and 1 tablet at night 90 Tablet 2 5 025 Discontinued Hospital, Clinic, or Other Facility Administered Medication Ordered Dose Route Frequency Start Date End Date Status albuterol sulfate (PROVENTIL) (2.5 MG/3ML) 0.083% inhalation solution 2.5 mgIndications:COPD, severity to be determined (HCC) 2.5 mg NEBULIZER [id number] 08/16/2018 Active documented as of this encounter (statuses as of 10/24/2024) Active Problems Problem Noted Date Diagnosed Date Stage 3b chronic kidney disease 11/15/2023 Major depressive disorder, single episode, moder ate 09/28/2021 DDD (degenerative disc disease), lumbar 04/26/20 21 Age-related osteoporosis wit hout current pathological fracture 04/26/2021 Exudative age-related macula r degeneration of left eye with active choroidal neovascularization 10/12/2020 COPD, group B, by GOLD 2017 classification 07/19 Overview: Per COPD GOLD Classification Hyperparathyroidism, secondary renal 09/20/2019 Bronchiectasis without complication 01/08/2019 Anxiety state 11/07/2018 Centrilobular emphysema 10/14/2018 RLS (restless legs syndrome) 10/14/2018 SILVIA (obstructive sleep apnea) 10/14/2018 Diabetes mellitus with stage 3 chronic kidney di sease 10/09/2018 Hypersomnolence 08/16/2018 Lung nodule 05/07/2018 Tobacco use disorder 05/07/2018 Old MS (myocardial infarction) 02/15/2018 Coronary artery disease invo lving [place] coronary artery of [place] heart without angina pectoris 02/15/2018 History of breast cancer 02/13/2017 CNH (chondrodermatitis nodularis helicis) 2013 Type 2 diabetes mellitus wit h hemoglobin A1c goal of less than 8.0% 12/16/2013 Overview (01/06/2016): ICD-10 update of inactive term DYSLIPIDEMIA, GOAL LDL BELOW 100 08/25/2009 Overview (08/25/2009): Per Lipid Taxonomy. GERD (gastroesophageal reflux disease) 2 documented as of this encounter (statuses as of 10/24/2024) Resolved Problems Problem Noted Date Diagnosed Date Resolved Date Acute bilateral low back monica n without sciatica 04/26/2021 06/02/2022 COPD, mild 03/31/2020 07/22/2020 Overview: Per COPD GOLD Classification COPD, group B, by GOLD 2017 classification 09/22/2019 03/31/2020 Overview: Per COPD GOLD Classification Protein-calorie malnutrition 09/20/2019 06/02/2022 COPD, group B, by GOLD 2017 classification 02/17/2019 05/22/2019 Overview: Per COPD GOLD Classification COPD, moderate 01/09/2019 09/25/2019 Overview: Per COPD GOLD Classification COPD, severity to be determined 10/14/2018 02/18/2019 Hyperparathyroidism 10/09/2018 06/02/20 22 CKD (chronic kidney disease) stage 3, GFR 30-59 ml/min 01/20/2016 10/24/2018 Kidney disease, chronic, sta ge III (GFR 30-59 ml/min) 07/26/2015 08/17/2015 Overview: Per CKD protocol #1 Dermatitis 02/23/2014 02/15/2018 Other seborrheic keratosis 02/23/2014 1 10/18/2016 Iron deficiency anemia 01/08/201408/17 Other B-complex deficiencies 01/08/2014 02/15/2018 Actinic keratosis 12/16/2013 12/16/2013 Benign neoplasm of colon 10/29/200704/2017 Overview (11/01/2007): polyp x 5--adenomatous polyps--repeat 5 years ADVANCE DIRECTIVE INFORMATION 02/05/2007 07/14/2024 Overview (07/03/2006): No, Advance Directive brochure given to patient 06/12/06. Type 2 diabetes mellitus wit h hemoglobin A1c goal of less than 7.0% 08/09/2006 12/16/2013 Overview (01/04/2016): ICD-10 update of inactive term Malignant neoplasm of upper- outer quadrant of female breast 07/03/2006 02/13/2017 Cancer Staging:Clinical: Unsigned Pathologic:Stage IIA(T2, N1, M0) - Unsigned Esophageal stricture 07/30/2002 017 Dyslipidemia, goal to be determined 07/30/2002 08/25/2009 Overview (08/25/2009): Per Lipid Taxonomy. Panic disorder 02/15/2018 Menopause 05/20/2018 DM type 2, not at goal 05/18 Malignant neoplasm of other specified sites of female breast 02/13/2017 Overview (08/10/2006): left documented as of this encounter (statuses as of 10/24/2024) Immunizations Name Administration Dates Next Due COVID-19 mRNA, LNP-s, No Pre serve, 2-Dose Series (Pfizer) 09/12/2021,01/29/2021,01/08/2021 Pneumococcal Conjugate Vacc, 13 Valent (Prevnar) 09/30/2014 Season Influenza, Quad, PF, Adjuvanted, 65+ Yrs, IM (FLUAD) 05/26/2020 Seasonal Influenza Vac., MDV , IM, 0.5 mL (Fluzone) 06/17/2014,06/17/2013,06/17/2012,2010,07/22/2010,05/18/2009,07/07/2008,1 ,08/09/2006 Seasonal Influenza Virus Vac cine, Unspecified Formulation 05/26/2020 Seasonal Influenza, High Dos e, Trivalent, PF, IM (Fluzone HD) 06/05/2019,08/17/2017 Seasonal Influenza, PF, 6 M & above, IM , (FluLaval or Fluzone) 07/04/2018 Seasonal Influenza, Quadriva lent Hd (Fluzone Hd) 06/22/2023,06/02/2022,06/16/2021 Seasonal Influenza, Quadriva lent, No Preserve, IM 05/16/2016,07/07/2015 Seasonal Influenza, Trivalen t, Adjuvanted, 65+ YRS, PF, (Fluad) 07/30/2019 TD - Tetanus/Diptheria (ADULT) 09/27/2007 TDAP (age 10 and older)(Boostrix) 02/13/2017 Varicella Zoster Vaccine (Adult) 06/20/2007 Zoster Vaccine Recombinant (Shingrix) 06/05/2019 ,02/18/2019 documented as of this encounter Social History Tobacco Use Types Packs/Day Years Used Date Smoking Tobacco: Former Cigarettes 1 51 0 02/08/1971 - 02/08/2022 Smokeless Tobacco: Never Comments:02/04/21 currently smoking 10 cig/day Alcohol Use Standard Drinks/Week Comments No 0 (1 standard drink = 0.6 oz pur e alcohol) PHQ-2 Answer Date Recorded PHQ Adult Total Score 0 06/22/2023 Hunger Vital Sign Answer Date Recorded Within the past 12 months, y ou worried that your food would run out before you got the money to buy more. Never true 06/22/20 23 Within the past 12 months, t he food you bought just didn't last and you didn't have money to get more. Never true 06/22/2023 Comments No Sex and Gender Information Value Date Recorded Sex Assigned at Female 06/22/2023 12:34 PM EDT Legal Sex Female 5:09 AM EST Gender Identity Female 06/22/2023 12:34 PM EDT Sexual Orientation Straight 06/22/2023 12 :34 PM EDT documented as of this encounter Last Filed Vital Signs Vital Sign Reading Time Taken Comments Blood Pressure 102/60 10/23/2024 10:11 AM EST Pulse 109 10/23/2024 10:11 AM EST Temperature 36 C (96.8 F) 10/23/2024 10:11 AM EST Respiratory Rate 18 10/23/2024 10:11 AM EST Oxygen Saturation 95% 10/23/2024 10:11 AM EST Inhaled Oxygen Concentration - - Weight - - Height - - Body Mass Index - - documented in this encounter Progress Notes * Nel Ash, DO - 10/24/2024 10:02 AM EST Images from the original note were not included. Subjective Liset Agudelo is a 84 year old female that presents for Re-Check History of Present Illness 84-year-old female presents with power of attorney at law her sister Lucy Agudelo, and her caregiver Marcia. Patient lives at home with a long-term live-in lawn caretaker, she has a history of dysphagia seen on a barium swallow test a few years ago, and had been doing well with pureed foods. Caregiver reports that she stopped eating and drinking a few days ago. Is not able to tolerate any pureed foods now. Is cough ing / spitting up a lot of thick clear mucus. Patient is also refusing to help with transfer getting in and out of wheelchair making difficult for caregiver they had to hire another caregiver to live in 24 hours as it takes 2 people to assist her. This is all transpired since her significant decline in the last 2 months due to bullous pemphigoid. She has had severe pain and skin sensitivity due to the bullous pemphigoid. She just had an appointment with Dermatology this morning and the bullous pemphigoid has significantly improved with topical clobetasol, oral doxycycline, and oral prednisone, being decreased now from 40 mg daily to 20 mg daily. Insurance refused to cover Dupixent. Objective Vitals: 10/23/24 1011 Temp: 96.8 F (36 C) Pulse: 109 Resp: 18 SpO2: 95% BP: 102/60 Physical Exam General: alert, no distress, uncooperative, and flat affect, depressed, oriented to person and place. Head: Normocephalic, No masses, lesions, tenderness or abnormalities Eye Exam: PERRLA, extraocular movements intact, conjunctiva are pink and non- injected, sclera clear Oropharynx: moderate erythema, thrush, and MM dry Neck: supple, no adenopathy, no bruits, thyroid normal size, non-tender, without nodularity Lymph: no palpable lymphadenopathy Heart: regular rate & rhythm, no murmur, and no gallops Lungs: chest symmetric with normal AP diameter, no chest deformities noted, no chest wall tenderness, lungs clear to auscultation Pulses: carotid=2/4 w/o bruits Extremities: less than 2 second capillary refill, no joint deformities, effusion, or inflammation I have reviewed the following results: Results Latest Reference Range & Units 11/15/23 12:06 Triglycerides <=174 mg/dL 279 (H) Cholesterol <200 mg/dL 399 (H) Non-HDL Cholesterol <=159 mg/dL 348 (H) HDL Cholesterol >49 mg/dL 51 LDL Cholesterol <=129 mg/dL 292 (H) SODIUM 135 - 146 mmol/L 141 POTASSIUM 3.5 - 5.1 mmol/L 4.4 CHLORIDE 98 - 107 mmol/L 107 CO2 22 - 32 mmol/L 20 (L) BUN 6 - 20 mg/dL 24 (H) CREATININE 0.5 - 1.0 mg/dL 1.5 (H) EGFR >=60 mL/min 35 (L) ANION GAP 7 - 15 mmol/L 14 GLUCOSE 70 - 120 mg/dL 115 CALCIUM 8.4 - 10.2 mg/dL 9.8 Phosphorus 2.5 - 4.8 mg/dL 3.4 Estimated Average Glucose <126 mg/dL 105 Hemoglobin A1C 4.0 - 5.6 % 5.3 CBC Rpt WBC 4.00 - 10.80 K/uL 6.10 RBC 3.85 - 5.15 M/uL 4.56 HGB 12.0 - 15.3 g/dL 13.7 HCT 36.0 - 45.2 % 45.2 MCV 81.5 - 97.5 fL 99.1 MCH 27.0 - 34.0 pg 30.0 MCHC 32.0 - 36.0 g/dL 30.3 RDW 11.5 - 15.5 % 14.5 PLT 140 - 400 K/uL 286 MPV 6.6 - 11.1 fL 9.0 IRON SCREEN, INCLUDING TIBC Rpt ! Iron 33 - 151 ug/dL 90 Iron Binding Capacity 250 - 425 ug/dL 239 (L) Transferrin Saturation Percent 15 - 55 % 38 Ferritin 13 - 150 ng/mL 156 (H) Albumin 3.8 - 5.0 g/dL 4.0 ALT 10 - 35 U/L 9 (L) Assessment and Plan Assessment & Plan Prior to BP, patient was active, ambulatory, eating pureed foods without difficulty. Now patient refusing to eat for 3 days. Thrush on exam, possible sores in mouth from BP per derm, and doxy could have caused some esophageal irritation/ erosion. Derm just decreased pred. BP itself is much improved Bullous pemphigoid (Primary) - DULoxetine HCl 30 MG Oral Capsule Delayed Release Particles (Cymbalta); Take 1 Capsule by mouth in the morning. Do not cut, crush or chew. - Gabapentin 100 MG Oral Capsule (Neurontin); Take 1 Capsule by mouth in the morning and 1 Capsule at noon and 1 Capsule before bedtime. To help with pain, depression, motivation try to get up and get moving with PT Thrush - Nystatin [id number] UNIT/ML Mouth/Throat Suspension; Take 1 mL by mouth in the morning and 1 mL at noon and 1 mL in the evening and 1 mL before bedtime. For thrush.. Anorexia Dysphagia, unspecified type Likely multifactorial- check labs - FLUORO SWALLOWING FUNCTION W VIDEO CINE Chronic cough Centrilobular emphysema (HCC) Bronchiectasis without complication (HCC) - XR CHEST 2 VIEWS - FLUORO SWALLOWING FUNCTION W VIDEO CINE - COMPREHENSIVE METABOLIC PANEL; Future; Expected date: 10/23/2024 - CBC; Future; Expected date: 10/23/2024 Current moderate episode of major depressive disorder, unspecified whether recurrent (HCC) Anxiety state Currently taking mirtazapine and buspar, add cymbalta, DC trazodone Coronary artery disease involving [place] coronary artery of [place] heart without angina pectoris Diabetes mellitus with stage 3 chronic kidney disease (HCC) Exudative age-related macular degeneration of left eye with active choroidal neovascularization (HCC) Old MS (myocardial infarction) RLS (restless legs syndrome) Esophageal stricture Stage 3b chronic kidney disease (HCC) Type 2 diabetes mellitus with hemoglobin A1c goal of less than 8.0% (HCC) Dehydration Generalized weakness Ambulatory dysfunction Physical deconditioning All recent- PT, hydrate Wrap-Up Follow Up: Return in about 4 weeks (around 11/20/2024), or if symptoms worsen or fail to improve, for Clinic Visit, Labs Today. | For: Clinic Visit, Labs Today | Check-out note: CXR today See orders Fax referral to energy rehab Time: I spent a total of 40-54 minutes (exact time 45 mins) on the date of service in preparation, delivery, and documentation of the care provided to Alexandra Agudelo excluding any time spent in the performance of separately billed services. Nel Ash DO documented in this encounter Nursing Notes * Gillian Danielle LPN - 10/23/2024 10:03 AM EST Alexandra Agudelo presents for 6 month recheck. Medications & HM reviewed. documented in this encounter Plan of Treatment Upcoming Encounters Date Type Department Care Team (Late st Contact Info) Description 11/27/2024 3:00 PM EDT Office Visit Family Practice [facility] [address] [facility] [place] [address] Nel Ash DO [address] [facility] [address] Scheduled Orders Name Type Priority Associated Diagnoses Orde r Schedule FLUORO SWALLOWING FUNCTION W VIDEO CINE Medical Imaging Routine Chronic cough Ordered: 10/23/2024 Health Maintenance Due Date Last Done Comments Adult Wellness Visit 2005 DXA Scan 02/08/2017 02/08/2015, 01/10, 02/07/2012, Additional history exists Diabetic Foot Exam 07/30/2021 07/30/2020, 0 10/30/2019, 01/17/2019, Additional history exists *BISPHONATE OR OTHER ACCEPTABLE MEDICATION NEEDED FOR OSTEOPOROSIS (REFER TO SMARTSET #1146) 02/25/2023 Albumin/Creatinine Ratio 02/27/2024 023, 11/17/2019, 01/17/2019, Additional history exists COVID-19 Vaccine ( season) 2024 09/12/2021, 01/29/2021, 01/08/2021 Influenza Vaccine (FLU shot) (#1) 2024 06/22/2023, 06/02/2022, 06/16/2021, Additional history exists Depression Monitoring 06/22/2024 06/22/2023 CKD PHOS USE SMARTSET 69229 11/14/2024 03/0 03/2024, 02/22/2023, 11/22/2022, Additional history exists Diabetic Eye Exam 01/23/2025 01/24/2024, , 07/25/2021, Additional history exists HbA1c 04/22/2025 10/23/2024, 03/2024, 02/22/2023, Additional history exists CKD HGB USE SMARTSET 39363 10/23/202510/23, 11/15/2023, 11/22/2022, Additional history exists O2 ASSESSMENT COMPLETED IN PAST YEAR FOR COPD 10/23/2025 10/23/2024 DTap/Tdap Vaccines (2 - Td or Tdap) 02/13/2027 02/13/2017, 09/27/2007 Pneumococcal Vaccine: 50+ Years Completed 09/30/2014, 05/11/2005 Zoster Vaccines Completed 06/05/2019, 02/08, 06/20/2007 VITAMIN D LEVEL ONCE IN A LIFETIME-USE SMARTSET# [id number] Completed 05/25/2020, 07/16/2018, 02/11/2018, Additional history exists Alpha-1 Antitrypsin Completed 02/17/2021 HPV (Gardasil) Vaccine Aged Out No lo nger eligible based on patient's age to complete this topic Hepatitis B Vaccine Aged Out No longe r eligible based on patient's age to complete this topic MENINGOCOCCAL (MENACTRA/MENVEO) Aged Out No longer eligible based on patient's age to complete this topic Meningitis B Vaccine (Bexsero/Trumemba) Aged Out No longer eligible based on patient's age to complete this topic documented as of this encounter Medical Devices Not on filedocumented as of this encounter Procedures Procedure Name Priority Date/Time Associated Diagnosis Comments XR CHEST 2 VIEWS Routine 10/23/2024 11:2 4 AM EST Chronic cough documented in this encounter Results * (ABNORMAL) CBC (10/23/2024 11:30 AM EST) WBC 16.84(H) 4.00 - 10.80 K/uL 10/23/2024 11:38 AM EST [facility] 56- RBC 5.18 3.85 - 5.15 M/uL 10/23/2024 11:38 AM [facility] 56- HGB 16.0(H) 12.0 - 15.3 g/dL 10/23/2024 11:38 AM [facility] 56- HCT 51.2(H) 36.0 - 45.2 % 10/23/2024 11:38 AM [facility] 56- MCV 98.8 81.5 - 97.5 fL 10/23/2024 11:38 AM [facility] 56- MCH 30.9 27.0 - 34.0 pg 10/23/2024 11:38 AM [facility] 56-02 MCHC 31.3 32.0 - 36.0 g/dL 10/23/2024 11:38 AM [facility] 56-02 RDW 15.7 11.5 - 15.5 % 10/23/2024 11:38 AM [facility] 56-02 PLT 274 140 - 400 K/uL 10/23/2024 11:38 AM [facility] 56-02 MPV 9.4 6.6 - 11.1 fL 10/23/2024 11:38 AM [facility] 56-02 Blood Venous blood specimen / Unknown Venipuncture / Unknown 10/23/2024 11:30 AM EST 10/23/2024 11:30 AM EST us Nel Ash DO LAB BLOOD ORDERABLES Fi nal Result [facility] [address]- [address] [place] [address] * XR CHEST 2 VIEWS (10/23/2024 11:24 AM EST) Anatomical Region Laterality Modality Chest Computed Radiogr aphy 10/23/2024 2:50 PM EST Impressions 10/23/2024 2:47 PM EST IMPRESSION No evidence of acute cardiopulmonary disease. Narrative 10/23/2024 2:47 PM EST EXAM XR CHEST 2 VIEWS-10/23/2024 11:24 am HISTORY cough- persistent COMPARISON Chest radiograph 02/28/2018. TECHNIQUE PA and lateral views of the chest are examined. FINDINGS The lungs are clear. There is no pleural effusion. The pulmonary vasculature and cardiomediastinal silhouette are within normal limits. No acute osseous finding. Procedure Note Zen Kumar MD - 10/23/2024 EXAM XR CHEST 2 VIEWS-10/23/2024 11:24 am HISTORY cough- persistent COMPARISON Chest radiograph 02/28/2018. TECHNIQUE PA and lateral views of the chest are examined. FINDINGS The lungs are clear. There is no pleural effusion. The pulmonaryvasculature and cardiomediastinal silhouette are within normal limits. Noacute osseous finding. IMPRESSION IMPRESSION No evidence of acute cardiopulmonary disease. Nel Ash DO RADIOLOGY (RAD GENERAL) Final Result documented in this encounter Visit Diagnoses Diagnosis Bullous pemphigoid- Primary Pemphigoid Anorexia Chronic cough Cough Dysphagia, unspecified type Current moderate episode of major depressive disorder, unspecified whether recurrent (HCC) Anxiety state Anxiety state, unspecified Centrilobular emphysema (HCC) Other emphysema Bronchiectasis without complication (HCC) Bronchiectasis without acute exacerbation Coronary artery disease involving [place] coronary artery of [place] heart without angina pectoris Diabetes mellitus with stage 3 chronic kidney disease (HCC) Type II or unspecified type diabetes mellitus with renal manifestations, not stated as uncontrolled Exudative age-related macular degeneration of left eye with active choroidal neovascularization (HCC) Old MS (myocardial infarction) Old myocardial infarction RLS (restless legs syndrome) Restless legs syndrome (RLS) Esophageal stricture Stricture and stenosis of esophagus Stage 3b chronic kidney disease (HCC) Type 2 diabetes mellitus with hemoglobin A1c goal of less than 8.0% (HCC) Dehydration Generalized weakness Other malaise and fatigue Ambulatory dysfunction Physical deconditioning Debility, unspecified COPD, group B, by GOLD 2017 classification (HCC) Major depressive disorder, single episode, moderate (HCC) Major depressive disorder, single episode, moderate documented in this encounter Care Teams Autism Specialist Relationship Specialty Start Date End Date Bandar Nieves III, MD [address] [facility] [place] [address] PCP - General 10/25/00 documented as of this encounter"
--- OUTSIDE RECORDS SUMMARY | 2024-10-24 21:04 | External Medical Summary ---
Author Name Unknown Address Unknown Organization K09:[facility] [address] [place] [address] Laboratory Report Ordering Provider Test Date Status SILVA MALDONADO 10/23/2024 11:30:59 Final Observation Date Value Abnormality Reference (Units ) Status BUN 10/23/2024 11:30:59 92 Above high normal 6-20 (mg/dL) Final Creatinine 10/23/2024 11:30:59 2.0 Above high normal 0.5-1.0 (mg/dL) Final Glomerular filtration rate/1.73 sq M.predicted [Volume Rate/Area] in Serum, Plasma or Blood by Creatinine-based formula (CKD-EPI) 10/23/2024 11:30:59 23 Below low normal >=60 (mL/min) Final eGFR is calculated based on the CKD-EPI 2020 equation. Sodium 10/23/2024 11:30:59 147 Above high normal 13 5-146 (mmol/L) Final Potassium 10/23/2024 11:30:59 5.0 3.5-5.1 (m mol/L) Final Cl 10/23/2024 11:30:59 110 Above high normal 98 -107 (mmol/L) Final CO2 10/23/2024 11:30:59 15 Below low normal 22- 32 (mmol/L) Final Anion gap 10/23/2024 11:30:59 22 Above high normal 7- 15 (mmol/L) Final Glucose 10/23/2024 11:30:59 172 Above high normal 70 -120 (mg/dL) Final Albumin 10/23/2024 11:30:59 3.6 Below low normal 3.8 -5.0 (g/dL) Final AST (Aspartate aminotransferase) 10/23/2024 11:30:59 15 10-35 (U/L) Fin al Result may be falsely elevat ed due to hemolysis. Alk Phos 10/23/2024 11:30:59 70 35-130 (U/ L) Final Bilirubin, Total 10/23/2024 11:30:59 0.8 <=1 .2 (mg/dL) Final Calcium 10/23/2024 11:30:59 10.6 Above high normal 8. 4-10.2 (mg/dL) Final Protein 10/23/2024 11:30:59 6.8 6.0-8.3 (g /dL) Final ALT (Alanine aminotransferase) 10/23/2024 11:30:59 47 Above high normal 10-35 (U/L) Final Performing Location [facility] [phone] [place] [address]
--- OUTSIDE RECORDS SUMMARY | 2024-10-24 21:04 | External Medical Summary | Summary of Care ---
Author Name Unknown Organization [facility] Address [address] [place] [address] Phone [phone] Care Team Providers Care Digital Marketing Strategist Name Role Phone Ezequiel ROBBINS MD, Bandar Sims Primary Care Provider [phone] Reason for Visit * Reason Onset Date Comments Advice 10/20/2024 Staff with [facility] called to ask for a new order reducing the number of nurse visits the pt will need for at home wound care. Encounter Details Date Type Department Care Team (Late st Contact Info) Description 10/20/[address] [facility] [place] [place] [address] [place] [address] Services, Scheduling [address] [place] [address] Advice (Staff with [facility] called to a... Allergies Active Allergy Reactions Criticality Noted Date Comments Penicillins Rash 08/28/2000 documented as of this encounter (statuses as of 10/21/2024) Medications [facility] Oral Tablet Take 1 Tablet by mouth in the morning. 11/20/2022 Active Stiolto Respimat 2.5-2.5 MCG/ACT Inhalation Aerosol Solution (Tiotropium-Olod aterol) Inhale 2 Puffs by mouth in the morning. 4 g 11 06/22/2023 Active Meclizine HCl 12.5 MG Oral Tablet (Antivert)Indica tions:Benign paroxysmal positional vertigo, unspecified laterality Take 1 Tablet by mouth 3 times a day as needed for Dizziness. 30 Tablet 1 11/15/2023 Active Omeprazole 40 MG Oral Capsule Delayed Release (PriLOSEC)Indica tions:Gastroesop hageal reflux disease with esophagitis without hemorrhage TAKE 1 CAPSULE BY MOUTH IN THE MORNING AND AT BEDTIME 180 Capsule 1 06/26/2024 Active Arthritis Pain Relief 650 MG Oral Tablet Extended Release (Acetaminophen ER)Indications:D DD (degenerative disc disease), lumbar TAKE 2 TABLETS BY MOUTH AT BEDTIME, 2 TABS IN THE MORNING, MAY TAKE 2 MORE 8 HOURS LATER 120 Tablet 5 07/21/2024 Active traZODone HCl 50 MG Oral Tablet (Desyrel)Indicat ions:Major depressive disorder, single episode, moderate (HCC) TAKE 1/2 TABLET BY MOUTH AT BEDTIME 15 Tablet 08/22/2024 Active D3 High Potency 50 MCG (2000 UT) Oral Capsule (Cholecalciferol ) TAKE 1 CAPSULE BY MOUTH ONCE DAILY IN THE MORNING 30 Capsule 08/23/2024 Active Ferrous Sulfate 325 (65 Fe) MG Oral Tablet (Feosol) TAKE 1 TABLET BY MOUTH IN THE MORNING AND AT BEDTIME 60 Tablet 08/22/2024 Active Mirtazapine 15 MG Oral Tablet (Remeron)Indicat ions:Major depressive disorder, single episode, moderate (HCC) TAKE 1 AND 1/2 TABLET BY MOUTH AT BEDTIME 45 Tablet 08/23/2024 Active busPIRone HCl 10 MG Oral Tablet (Buspar)Indicati ons:Anxiety state TAKE 1 TABLET BY MOUTH IN THE MORNING AND AT BEDTIME 60 Tablet 08/23/2024 Active Aspirin Low Dose 81 MG Oral Tablet Delayed Release (aspirin enteric coated)Indicatio ns: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 60 Tablet 09/04/2024 Active Cetirizine HCl 10 MG Oral Tablet (ZyrTEC) Take 1 Tablet by mouth in the morning and 1 Tablet before bedtime. 60 Tablet 09/04/2024 Active diphenhydrAMINE HCl 25 MG Oral Tablet (Benadryl Allergy) Take 1 Tablet by mouth at bedtime as needed for Itching. Active Triamcinolone Acetonide 0.1 % External Ointment (Aristocort) Apply to rash on chest, back, arms, legs, buttock, hands twice a day for 2-4 weeks 454 g 1 09/17/2024 Active B-12 1000 MCG Oral Tablet TAKE TWO TABLETS BY MOUTH 8AM 60 Tablet 11 09/24/2024 Active Niacinamide 500 MG Oral Tablet Take one tablet in the morning and 1 tablet at night 90 Tablet 2 09/24/2024 Active Clobetasol Propionate 0.05 % External Ointment (Temovate) Apply to active rash on trunk and hands daily 60 g 5 10/02/2024 Active Doxycycline Monohydrate 100 MG Oral CapsuleIndicatio ns:Bullous pemphigoid Take 1 Capsule by mouth in the morning and 1 Capsule before bedtime. Take with food. 180 Capsule 10/02/2024 Active predniSONE 20 MG Oral Tablet (Deltasone) Take 3 tablets daily for 5 days, then 2 tablets daily for 5 days, then 1 tablet daily for 5 days 30 Tablet 10/02/2024 Active predniSONE 20 MG Oral Tablet (Deltasone) Take 2 Tablets by mouth in the morning. 50 Tablet 10/06/2024 Active ALPRAZolam 0.25 MG Oral Tablet (xaNAX)Indicatio ns:Anxiety state TAKE ONE TABLET BY MOUTH IN THE MORNING AND ONE TABLET AT BEDTIME NEEDED FOR ANXIETY 30 Tablet 10/08/2024 Active Hospital, Clinic, or Other Facility Administered Medication Ordered Dose Route Frequency Start Date End Date Status albuterol sulfate (PROVENTIL) (2.5 MG/3ML) 0.083% inhalation solution 2.5 mgIndications:COPD, severity to be determined (HCC) 2.5 mg NEBULIZER [id number] 08/16/2018 Active documented as of this encounter (statuses as of 10/21/2024) Active Problems Problem Noted Date Diagnosed Date [...] nodule 05/07/2018 Tobacco use disorder 05/07/2018 Old HI (myocardial infarction) 02/15/2018 Coronary artery disease invo lving [place] coronary artery of [place] heart without angina pectoris 02/15/2018 History of breast cancer 02/13/2017 CNH (chondrodermatitis nodularis helicis) 2013 Type 2 diabetes mellitus wit h hemoglobin A1c goal of less than 8.0% 12/16/2013 Overview (01/06/2016): ICD-10 update of inactive term DYSLIPIDEMIA, GOAL LDL BELOW 100 08/25/2009 Overview (08/25/2009): Per Lipid Taxonomy. GERD (gastroesophageal reflux disease) 2 documented as of this encounter (statuses as of 10/21/2024) Resolved Problems Problem Noted Date Diagnosed Date [...] be determined 10/14/2018 02/18/2019 Hyperparathyroidism 10/09/2018 06/02/20 CKD (chronic kidney disease) stage 3, GFR [...] as of this encounter (statuses as of 10/21/2024) Immunizations Name Administration Dates Next Due COVID-19 mRNA, LNP-s, No Pre serve, 2-Dose Series (Pfizer) 09/12/2021,01/29/2021,01/08/2021 Pneumococcal Conjugate Vacc, 13 Valent (Prevnar) 09/30/2014 Pneumococcal Polysaccharide PPV23 (Pneumovax) 05/11/2005 Season Influenza, Quad, PF, Adjuvanted, 65+ Yrs, IM (FLUAD) 05/26/2020 Seasonal Influenza Vac., MDV , IM, 0.5 mL (Fluzone) 06/17/2014,06/17/2013,06/17/2012,06/20,07/22/2010,05/18/2009,07/07/2008 ,06/20/2007,08/09/2006 Seasonal Influenza Virus Vac cine, Unspecified Formulation [...] PM EDT documented as of this encounter Miscellaneous Notes * Telephone Encounter - Melissa Cabrera MED ASSIST - 10/21/2024 1:28 PM EST faxed * Telephone Encounter - Jett Maurer MD - 10/21/2024 12:36 PM EST Please apply clobetasol propionate 0.05% ointment to rash on arms, chest, back, legs three times weekly Jett Maurer MD * Telephone Encounter - Rashaun Maurer OSA - 10/20/2024 2:02 PM EST Noé, Staff with [facility] called to ask for a new order reducing the number of nurse visits (from 1x daily to 3x weekly) the pt will need for at home wound care. The nursing staff reports improvement to the wound and would like to come 3x weekly since they havealso educated family and in home staff [facility] nursing staff Thank you, SILVIA Rose documented in this encounter Plan of Treatment Upcoming Encounters Date Type Department Care Team (Late st Contact Info) Description 10/23/2024 9:15 AM EST Office Visit Dermatology [facility] [place] [address] [place] [address] Jett Maurer MD [address] [place] [address] 10/23/2024 3:00 PM EST Office Visit Family Practice [facility] [address] [place] [address] [place], [address] [facility] [place] [address] Health Maintenance Due Date Last Done Comments [...] 2024 06/22/2023, 06/02/2022, 06/16/2021, Additional history exists HbA1c 05/17/2024 11/15/2023, 02/08, 11/22/2022, Additional history exists Depression Monitoring 06/22/2024 06/22/2023 CKD HGB USE SMARTSET 22538 11/14/202411/14, 11/22/2022, 06/02/2022, Additional history exists CKD PHOS USE SMARTSET 44232 11/14/2024 03/0 03/2024, 02/22/2023, 11/22/2022, Additional history exists Diabetic Eye Exam 01/23/2025 01/24/2024, , 07/25/2021, Additional history exists O2 ASSESSMENT COMPLETED IN PAST YEAR FOR COPD 09/04/2025 09/04/2024 DTap/Tdap Vaccines (2 - Td or Tdap) 02/13/2027 02/13/2017, 09/27/2007 Pneumococcal Vaccine: 50+ Years Completed 09/30/2014, 05/11/2005 Zoster Vaccines Completed 06/05/2019, 02/08, 06/20/2007 VITAMIN D LEVEL ONCE IN A LIFETIME-USE SMARTSET# [id number] Completed 05/25/2020, 07/16/2018, 02/11/2018, Additional history exists [...] Not on filedocumented as of this encounter Care Teams Digital Marketing Strategist Relationship Specialty Start Date End Date Bandar Nieves III, MD [address] [facility] [address] PCP - General 10/25/00 documented as of this encounter
--- OUTSIDE RECORDS SUMMARY | 2024-10-24 21:04 | External Medical Summary | Summary of Care ---
Author Name Unknown Organization [facility] Address [address] [place] [address] Phone [phone] Care Team Providers Care Boot Trimmer Name Role Phone Ezequiel ROBBINS MD, Bandar Sims Primary Care Provider [phone] Reason for Referral * Evaluate & Treat - Unlimited Visits (Within 30 days (routine)) - Authorized Specialty Diagnoses / Procedures Referred By Memo rod Referred To Contact HOME CARE / Home Care Diagnoses Bullous pemphigoid Flaco Ash, DO [address] [place] [address] Phone: tel: fax: Referral ID Status Reason Start Date Expiration Date Visits Requested Visits Authorized [id number] Authorized Specialty Services Required 10/15/2024 999 999 Question Answer Referral Priority Within 30 days (routine) Where should this appointment be scheduled? [facility] Comments Documentation of Zlij-vu-Wpxm Encounter Addendum Patient Name: Alexandra Agudelo I certify that this patient is under my care and that I, or a nurse practitioner or physician's diploma medical assistant working with me, had a bipb-as-ekcp encounter that meets the physician swyn-ab-uhvz encounter requirements with this patient on: 09/04/2024 The encounter with the patient was in whole, or in part, for the following medical condition, which is the primary reason for home health care (List medical condition): Bullous pemphigoid, generalized weakness, deconditioning, requires ward lift for transfer (new) previously independently ambulating 1 month ago- regain strength and balance to work toward independent ambulation I certify that, based on my findings, the following services are medically necessary home health services: Physical Therapy To provide the following care/treatments: (All hospitalists not following the patient after discharge should complete this section): physical therapy, strengthening, ambulation, balance Primary Care Physician to follow home care plan of care after discharge: Mihir My clinical findings support the need for the above services because: pt currently requiring hospital bed and ward lift Further, I certify that my clinical findings support that this patient is homebound (i.e. Absences from home require considerable and taxing effort and are for medical reasons or hoahaoism services or infrequently or of short duration when for other reason) because: extreme fatigue, weakness, due to bullous pemphigoid Physician Signature: Date of Signature: Physician Printed Name: Flaco Ash DO * Evaluate & Treat - Unlimited Visits (Within 3 days (urgent)) - Authorized Specialty Diagnoses / Procedures Referred By Memo rod Referred To Contact HOME CARE / Home Care Diagnoses Bullous pemphigoid Visit for wound care Flaco Ash DO [address] [place] [facility] [address] Phone: tel: fax: Referral ID Status Reason Start Date Expiration Date Visits Requested Visits Authorized [id number] Authorized Specialty Services Required 10/01/2024 999 999 Question Answer Referral Priority Within 3 days (urgent) Where should this appointment be scheduled? [facility] Comments Documentation of Gmvi-li-Jlrc Encounter Addendum Patient Name: Alexandra Agudelo I certify that this patient is under my care and that I, or a nurse practitioner or physician's diploma medical assistant working with me, had a eoxa-qs-cilt encounter that meets the physician vukg-ky-uyhy encounter requirements with this patient on: The encounter with the patient was in whole, or in part, for the following medical condition, which is the primary reason for home health care (List medical condition): Wound care I certify that, based on my findings, the following services are medically necessary home health services: Nursing To provide the following care/treatments: (All hospitalists not following the patient after discharge should complete this section): Patient has open wounds from bullous pemphigoid that need to be treated and some bandaged/ wound dressing Primary Care Physician to follow home care plan of care after discharge: Mihir My clinical findings support the need for the above services because: severe bullous pemphigoid, limited mobility, pain, trouble eating due to sores in her mouth Further, I certify that my clinical findings support that this patient is homebound (i.e. Absences from home require considerable and taxing effort and are for medical reasons or hoahaoism services or infrequently or of short duration when for other reason) because: Needs bandage/ wound care 3 times per week Physician Signature: Date of Signature: Physician Printed Name: Flaco Ash DO Reason for Visit * Reason Onset Date Comments Referral 10/01/2024 Encounter Details Date Type Department Care Team (Late st Contact Info) Description 10/01/2024 Telephone Family Practice [facility] [address] [place] [id number] Flaco Ash DO [address] [place] [id number] Referral Allergies Active Allergy Reactions Criticality Noted Date Comments Penicillins Rash 08/28/2000 documented as of this encounter (statuses as of 10/20/2024) Medications Sentry Senior Oral Tablet Take 1 Tablet by mouth in the morning. 11/21/19 23 Active Stiolto Respimat 2.5-2.5 MCG/ACT Inhalation Aerosol Solution (Tiotropium-Olo daterol) Inhale 2 Puffs by mouth in the morning. 4 g 11 06/22/20 23 Active Meclizine HCl 12.5 MG Oral Tablet (Antivert)Indic ations:Benign paroxysmal positional vertigo, unspecified laterality Take 1 Tablet by mouth 3 times a day as needed for Dizziness. 30 Tablet 1 11/15/19 24 Active Omeprazole 40 MG Oral Capsule Delayed Release (PriLOSEC)Indic ations:Gastroes ophageal reflux disease with esophagitis without hemorrhage TAKE 1 CAPSULE BY MOUTH IN THE MORNING AND AT BEDTIME 180 Capsule 1 06/26/20 24 Active Arthritis Pain Relief 650 MG Oral Tablet Extended Release (Acetaminophen ER)Indications: DDD (degenerative disc disease), lumbar TAKE 2 TABLETS BY MOUTH AT BEDTIME, 2 TABS IN THE MORNING, MAY TAKE 2 MORE 8 HOURS LATER 120 Tablet 5 07/21/20 24 Active traZODone HCl 50 MG Oral Tablet (Desyrel)Indica tions:Major depressive disorder, single episode, moderate (HCC) TAKE 1/2 TABLET BY MOUTH AT BEDTIME 15 Tablet 5 08/22/20 24 Active D3 High Potency 50 MCG (2000 UT) Oral Capsule (Cholecalcifero l) TAKE 1 CAPSULE BY MOUTH ONCE DAILY IN THE MORNING 30 Capsule 5 08/23/20 24 Active Ferrous Sulfate 325 (65 Fe) MG Oral Tablet (Feosol) TAKE 1 TABLET BY MOUTH IN THE MORNING AND AT BEDTIME 60 Tablet 5 08/22/20 24 Active Mirtazapine 15 MG Oral Tablet (Remeron)Indica tions:Major depressive disorder, single episode, moderate (HCC) TAKE 1 AND 1/2 TABLET BY MOUTH AT BEDTIME 45 Tablet 5 08/23/20 24 Active busPIRone HCl 10 MG Oral Tablet (Buspar)Indicat ions:Anxiety state TAKE 1 TABLET BY MOUTH IN THE MORNING AND AT BEDTIME 60 Tablet 5 08/23/20 24 Active Aspirin Low Dose 81 MG Oral Tablet Delayed Release (aspirin enteric coated)Indicati ons: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 60 Tablet 09/04/20 24 Active Cetirizine HCl 10 MG Oral Tablet (ZyrTEC) Take 1 Tablet by mouth in the morning and 1 Tablet before bedtime. 60 Tablet 09/04/20 24 Active diphenhydrAMINE HCl 25 MG Oral Tablet (Benadryl Allergy) Take 1 Tablet by mouth at bedtime as needed for Itching. Active Triamcinolone Acetonide 0.1 % External Ointment (Aristocort) Apply to rash on chest, back, arms, legs, buttock, hands twice a day for 2-4 weeks 454 g 1 09/17/19 25 Active B-12 1000 MCG Oral Tablet TAKE TWO TABLETS BY MOUTH 8AM 60 Tablet 11 09/24/19 25 Active Niacinamide 500 MG Oral Tablet Take one tablet in the morning and 1 tablet at night 90 Tablet 2 09/24/19 25 Active ALPRAZolam 0.25 MG Oral Tablet (xaNAX)Indicati ons:Anxiety state TAKE ONE TABLET BY MOUTH IN THE MORNING AND ONE TABLET AT BEDTIME NEEDED FOR ANXIETY 30 Tablet 09/19/19 25 025 Discontinued Doxycycline Monohydrate 100 MG Oral CapsuleIndicati ons:Bullous pemphigoid Take 1 Capsule by mouth in the morning and 1 Capsule before bedtime. Take with food. 28 Capsule 09/21/19 25 025 Discontinued(Re fill) Clobetasol Propionate 0.05 % External Ointment (Temovate) Apply to active rash on trunk and hands daily 60 g 5 09/24/19 25 025 Discontinued(Re fill) predniSONE 20 MG Oral Tablet (Deltasone) Take 2 Tablets by mouth daily for 2 days, THEN 1 Tablet daily for 2 days, THEN 0.5 Tablets daily for 2 days. 7 Tablet 09/30/19 25 025 Discontinued(Re fill) Hospital, Clinic, or Other Facility Administered Medication Ordered Dose Route Frequency Start Date End Date Status albuterol sulfate (PROVENTIL) (2.5 MG/3ML) 0.083% inhalation solution 2.5 mgIndications:COPD, severity to be determined (HCC) 2.5 mg NEBULIZER [id number] 08/16/2018 Active documented as of this encounter (statuses as of 10/20/2024) Active Problems Problem Noted Date Diagnosed Date Stage 3b chronic kidney disease 11/15/2023 Major depressive disorder, single episode, moder ate 09/28/2021 DDD (degenerative disc disease), lumbar 04/26/20 Age-related osteoporosis wit hout current pathological fracture [...] nodule 05/07/2018 Tobacco use disorder 05/07/2018 Old [place] (myocardial infarction) 02/15/2018 Coronary artery disease invo lving [place] coronary artery of [place] heart without angina pectoris 02/15/2018 History of breast cancer 02/13/2017 CNH (chondrodermatitis nodularis helicis) 2013 Type 2 diabetes mellitus wit h hemoglobin A1c goal of less than 8.0% 12/16/2013 Overview (01/06/2016): ICD-10 update of inactive term DYSLIPIDEMIA, GOAL LDL BELOW 100 08/25/2009 Overview (08/25/2009): Per Lipid Taxonomy. GERD (gastroesophageal reflux disease) 2 documented as of this encounter (statuses as of 10/20/2024) Resolved Problems Problem Noted Date Diagnosed Date [...] as of this encounter (statuses as of 10/20/2024) Immunizations Name Administration Dates Next Due COVID-19 mRNA, LNP-s, No Pre serve, 2-Dose Series (studdex) 09/12/2021,01/29/2021,01/08/2021 Pneumococcal Conjugate Vacc, 13 Valent (Prevnar) [...] encounter Miscellaneous Notes * Telephone Encounter - Flaco Ash DO - 10/20/2024 12:53 PM EST Called back Discussed PT wih energy rehab who may be able to come to house, or HH PT with current HH company [employer]. Appt Inpatient rehab likely won't be possible- needs to be able to do 3 hours of rehab/ exercise. Pt is SNF LOC currently, with 24 hour cardiac care nurse at her home * Addendum Note - Teodora Bear RN - 10/15/2024 2:13 PM ESTAddended by: TEODORA BEAR on: 10/15/2024 02:13 PM Modules accepted: Orders * Telephone Encounter - Teodora Bear RN - 10/15/2024 2:05 PM EST Provider to address: Reason for Call: Referral Contact: Telephone Call Contact Type: Orders Provider In-Basket: Yes Outcome: faxed order. Changed order to reflect ambulatory dysfunction dx. Face to face time spent with Patient (minutes): 0 Total Time including non face to face (minutes): 10 * Telephone Encounter - Flaco Ash DO - 10/15/2024 10:35 AM EST Please print, sign and fax order for Ward [facility]raham and HH PT Flaco Ash DO * Addendum Note - Flaco Ash DO - 10/15/2024 10:27 AM ESTAddended by: FLACO ASH on: 10/15/2024 10:27 AM Modules accepted: Orders * Addendum Note - Romaine Nowak LPN - 10/14/2024 1:25 PM ESTAddended by: ROMAINE NOWAK on: 10/14/2024 01:25 PM Modules accepted: Orders * Telephone Encounter - Romaine Nowak LPN - 10/14/2024 1:24 PM EST Order pended for ward lift and PT. Per message dated 10/09/24, order for hospital bed was faxed to [facility]. * Telephone Encounter - Sheba Shaw LPN - 10/01/2024 12:42 PM EST Order faxed, confirmation received. * Telephone Encounter - Jake Lee DO - 10/01/2024 12:38 PM EST We have a signed copy and Sheba is sending it now * Telephone Encounter - Kimberly Bernal OSA - 10/01/2024 12:33 PM EST Please fax to [facility] at [phone] , they need it as soon as possible. * Telephone Encounter - Flaco Ash DO - 10/01/2024 11:13 AM EST Can one of the docs or PAs in the office today please sign paper copy Home health for nursing woundcare to go to house, preferably soon, please fax to [facility] per AGNES's request (I signed electronically). I spoke to AGNES who is in [place], she spoke to [facility] 24 hour nursing home manager this morning. She is attaching pictures of hands that were bandaged (bandage has been on since derm visit until today). She is tolerating pureed food, denies dehydration, does not think there is infection, would like to stayhome for now, patient does not want hospital bed or to go to hospital for admission, she will keep appt with Dr. Maurer tomorrow. Thank you! Flaco Ash DO documented in this encounter Plan of Treatment Upcoming Encounters Date Type Department Care Team (Late st Contact Info) Description 10/23/2024 9:15 AM EST Office Visit Dermatology [facility] [place] [address] [facility] [address] [place] [address] Jett Maurer MD [address] [facility] [place] [address] 10/23/2024 3:00 PM EST Office Visit Family Practice [facility] [place] [address] [facility] [place] [place] [address] Flaco Ash DO [address] [facility] [place] [address] Scheduled Referrals Name Type Priority Associated Diagnoses Orde r Schedule HOME HEALTH REFERRAL OP Referral Within 3 days (urgent) Bullous pemphigoid Visit for wound care Ordered: 10/01/2024 HOME HEALTH REFERRAL OP Referral Within 30 days (routine) Bullous pemphigoid Ordered: 10/15/2024 Health Maintenance Due Date Last Done Comments [...] Monitoring 06/22/2024 06/22/2023 CKD HGB USE SMARTSET 34475 11/14/202411/14, 11/22/2022, 06/02/2022, Additional history exists CKD PHOS USE SMARTSET 06640 11/14/2024 03/0 03/2024, 02/22/2023, 11/22/2022, Additional history exists Diabetic Eye Exam 01/23/2025 01/24/2024, , 07/25/2021, Additional history exists O2 ASSESSMENT COMPLETED IN PAST YEAR FOR COPD 09/04/2025 09/04/2024 DTap/Tdap Vaccines (2 - Td or Tdap) 02/13/2027 02/13/2017, 09/27/2007 Pneumococcal Vaccine: 50+ Years Completed 09/30/2014, 05/11/2005 Zoster Vaccines Completed 06/05/2019, 02/08, 06/20/2007 VITAMIN D LEVEL ONCE IN A LIFETIME-USE SMARTSET# [id number] Completed 05/25/2020, 07/16/2018, 02/11/2018, Additional history exists [...] Not on filedocumented as of this encounter Visit Diagnoses Diagnosis Ambulatory dysfunction- Primary Bullous pemphigoid Pemphigoid Visit for wound care Encounter for other specified aftercare documented in this encounter Care Teams Boot Trimmer Relationship Specialty Start Date End Date Bandar Nieves III, MD [address] [place] [address] PCP - General 10/25/00 documented as of this encounter
--- OUTSIDE RECORDS SUMMARY | 2024-10-24 21:04 | External Medical Summary ---
Author Name Unknown Address Unknown Organization K09:[facility] [place] [address] [address] Laboratory Report Ordering Provider Test Date Status SILVA MALDONADO 10/23/2024 11:30:59 Final Observation Date Value Abnormality Reference (Units ) Status Magnesium 10/23/2024 11:30:59 2.5 1.5-2.6 (m g/dL) Final Performing Location [facility] [place] [address]
--- OUTSIDE RECORDS SUMMARY | 2024-10-24 21:04 | External Medical Summary | Summary of Care ---
Author Name Unknown Organization [facility] Address [address] [place] [address] Phone [phone] Care Team Providers Care Die Stamping Press Operator Name Role Phone Ezequiel ROBBINS MD, Bandar Sims Primary Care Provider [phone] Reason for Referral * Evaluate & Treat - Unlimited Visits (Within 30 days (routine)) - Authorized Specialty Diagnoses / Procedures Referred By Memo rod Referred To Contact HOME CARE / Home Care Diagnoses Bullous pemphigoid Flaco Ash, DO [address] [place] [address] Phone: tel: fax: Referral ID Status Reason Start Date Expiration Date Visits Requested Visits Authorized [id number] Authorized Specialty Services Required 10/15/2024 999 999 Question Answer Referral Priority Within 30 days (routine) Where should this appointment be scheduled? [facility] Comments Documentation of Dcgq-ri-Bztk Encounter Addendum Patient Name: Alexandra Agudelo I certify that this patient is under my care and that I, or a nurse practitioner or physician's post production assistant working with me, had a skvl-kk-vfiq encounter that meets the physician jumj-st-kjfa encounter requirements with this patient on: 09/04/2024 [...] effort and are for medical reasons or church services or infrequently or of short duration [...] wound care Flaco Ash DO [address] [facility] [place] [address] Phone: tel: fax: Referral ID Status Reason Start Date Expiration Date Visits Requested Visits Authorized [id number] Authorized Specialty Services Required 10/01/2024 999 999 Question Answer Referral Priority Within 3 days (urgent) Where should this appointment be scheduled? [facility] Comments Documentation of Xudi-gt-Xbpp Encounter Addendum Patient Name: Alexandra Agudelo I certify that this patient is under my care and that I, or a nurse practitioner or physician's post production assistant working with me, had a nqgv-tk-yihy encounter that meets the physician sscw-xv-hkhg encounter requirements with this patient on: The [...] effort and are for medical reasons or church services or infrequently or of short duration [...] [facility] [address] [place] [address] Flaco Ash DO [address] [place] [address] Referral Allergies Active Allergy Reactions Criticality Noted Date Comments Penicillins Rash 08/28/2000 documented as of this encounter (statuses as of 10/18/2024) Medications Sentry Senior Oral Tablet Take 1 [...] enteric coated)Indicati ons: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 TAKE 1 [...] to be determined (HCC) 2.5 mg NEBULIZER [id number] 08/16/2018 Active documented as of this encounter (statuses as of 10/18/2024) Active Problems Problem Noted Date Diagnosed Date [...] nodule 05/07/2018 Tobacco use disorder 05/07/2018 Old [place] (myocardial infarction) 02/15/2018 Coronary artery disease invo lving [place] coronary artery of [place] heart without angina pectoris 02/15/2018 History of breast cancer 02/13/2017 CNH (chondrodermatitis nodularis helicis) 2013 Type 2 diabetes mellitus wit h hemoglobin A1c goal of less than 8.0% 12/16/2013 Overview (01/06/2016): ICD-10 update of inactive term DYSLIPIDEMIA, GOAL LDL BELOW 100 08/25/2009 Overview (08/25/2009): Per Lipid Taxonomy. GERD (gastroesophageal reflux disease) 2 documented as of this encounter (statuses as of 10/18/2024) Resolved Problems Problem Noted Date Diagnosed Date [...] as of this encounter (statuses as of 10/18/2024) Immunizations Name Administration Dates Next Due COVID-19 mRNA, LNP-s, No Pre serve, 2-Dose Series (GenoSpace) 09/12/2021,01/29/2021,01/08/2021 Pneumococcal Conjugate Vacc, 13 Valent (Prevnar) [...] as of this encounter Miscellaneous Notes * Addendum Note - Teodora Bear RN [...] print, sign and fax order for Ward lift and HH PT Flaco Ash DO * [...] order for hospital bed was faxed to [facility]. * Telephone Encounter - Sheba Shaw LPN - 10/01/2024 12:42 PM EST Order faxed, confirmation received. * Telephone Encounter - Jake Lee DO - 10/01/2024 12:38 PM EST We have a signed copy and Sheba is sending it now * Telephone Encounter - Kimberly Bernal OSA - 10/01/2024 12:33 PM EST Please fax to [facility] at [phone] , they need it as soon as possible. * Telephone Encounter - Flaco Ash DO - 10/01/2024 11:13 AM EST Can one of the docs or PAs in the office today please sign paper copy Home health for nursing woundcare to go to house, preferably soon, please fax to [facility] per AGNES's request (I signed electronically). I spoke to POUriel who is in [place], she spoke to [facility]cia 24 hour home energy auditor this morning. She is attaching pictures of [...] 10/23/2024 9:15 AM EST [facility] [place] [address] [place] [address] Jett Maurer MD [address] [facility] [place] [address] 10/23/2024 3:00 PM EST Office Visit Family Practice [facility] [place] [address] [place] [address] Flaco Ash DO [address] [place] [address] Scheduled Referrals Name Type Priority Associated Diagnoses [...] Monitoring 06/22/2024 06/22/2023 CKD HGB USE SMARTSET 39885 11/14/202411/14, 11/22/2022, 06/02/2022, Additional history exists CKD PHOS USE SMARTSET 55781 11/14/2024 03/0 03/2024, 02/22/2023, 11/22/2022, Additional history exists Diabetic Eye Exam 01/23/2025 01/24/2024, , 07/25/2021, Additional history exists O2 ASSESSMENT COMPLETED IN PAST YEAR FOR COPD 09/04/2025 09/04/2024 DTap/Tdap Vaccines (2 - Td or Tdap) 02/13/2027 02/13/2017, 09/27/2007 Pneumococcal Vaccine: 50+ Years Completed 09/30/2014, 05/11/2005 Zoster Vaccines Completed 06/05/2019, 02/08, 06/20/2007 VITAMIN D LEVEL ONCE IN A LIFETIME-USE SMARTSET# [id number] Completed 05/25/2020, 07/16/2018, 02/11/2018, Additional history exists [...] aftercare documented in this encounter Care Teams Die Stamping Press Operator Relationship Specialty Start Date End Date Bandar Nieves III, MD [address] [place] [address] PCP - General 10/25/00 documented as of this encounter
--- OUTSIDE RECORDS SUMMARY | 2024-10-24 21:04 | External Medical Summary ---
Author Name Unknown Address Unknown Organization K[facility] [place] [address] Laboratory Report Ordering Provider Test Date Status JEWELL SAM 10/23/2024 11:30:59 Final Observation Date Value Abnormality Reference (Units ) Status WBC, Total 10/23/2024 11:30:59 16.84 Above high normal 4 .00-10.80 (K/uL) Final RBC 10/23/2024 11:30:59 5.18 3.85-5.15 (M/uL) Final Hemoglobin 10/23/2024 11:30:59 16.0 Above high normal 1 2.0-15.3 (g/dL) Final HCT 10/23/2024 11:30:59 51.2 Above high normal 36 .0-45.2 (%) Final MCV 10/23/2024 11:30:59 98.8 81.5-97.5 (fL) Final MCH 10/23/2024 11:30:59 30.9 27.0-34.0 (pg) Final MCHC 10/23/2024 11:30:59 31.3 32.0-36.0 (g/dL) Final RDW 10/23/2024 11:30:59 15.7 11.5-15.5 (%) Final Platelets 10/23/2024 11:30:59 274 140-400 (K /uL) Final MPV 10/23/2024 11:30:59 9.4 6.6-11.1 ( fL) Final Performing Location [facility] [place] [address]
--- OUTSIDE RECORDS SUMMARY | 2024-10-24 21:04 | External Medical Summary | Summary of Care ---
Author Name Unknown Organization [facility] Address [address] [place] [address] Phone [phone] Care Team Providers Care Assembler Type Bar And Segment Name Role Phone Ezequiel ROBBINS MD, Bandar Sims Primary Care Provider [phone] Reason for Visit * Reason Onset Date Comments Precert Denied 09/30/2024 Dupixent Encounter Details Date Type Department Care Team (Late st Contact Info) Description 09/30/2024 Telephone Dermatology [facility] [address] [place] [address] Surjit Kim MD [address] [place] [address] Precert Denied (Dupixent ) Allergies Active Allergy Reactions Criticality Noted Date Comments Penicillins Rash 08/28/2000 documented as of this encounter (statuses as of 10/17/2024) Medications Sent Senior Oral Tablet Take 1 Tablet by [...] THE MORNING AND AT BEDTIME 60 Tablet 08/22/20 24 Active Mirtazapine 15 MG Oral Tablet (Remeron)Indica tions:Major depressive disorder, single episode, moderate (HCC) TAKE 1 AND 1/2 TABLET BY MOUTH AT BEDTIME 45 Tablet 5 08/23/20 24 Active busPIRone HCl 10 MG Oral Tablet (Buspar)Indicat ions:Anxiety state TAKE 1 TABLET BY MOUTH IN THE MORNING AND AT BEDTIME 60 Tablet 08/23/20 24 Active Aspirin Low Dose 81 MG Oral Tablet Delayed Release (aspirin enteric coated)Indicati ons: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 60 Tablet 12/26/20 24 Active Cetirizine HCl 10 MG Oral [...] 28 Capsule 09/21/19 25 025 Discontinued(Re fill) predniSONE 20 MG Oral Tablet (Deltasone)[place] cations:Bullous pemphigoid Take 3 tablets daily for 3 days, then 2 tablets daily for 3 days, then 1 tablet for 3 days 18 Tablet 09/21/19 25 025 Discontinued Clobetasol Propionate 0.05 % External Ointment (Temovate) [...] to be determined (HCC) 2.5 mg NEBULIZER [id number] 08/16/2018 Active documented as of this encounter (statuses as of 10/17/2024) Active Problems Problem Noted Date Diagnosed Date [...] nodule 05/07/2018 Tobacco use disorder 05/07/2018 Old [place] (myocardial infarction) 02/15/2018 Coronary artery disease invo lving [place] coronary artery of [place] heart without angina pectoris 02/15/2018 History of breast cancer 02/13/2017 CNH (chondrodermatitis nodularis helicis) 2013 Type 2 diabetes mellitus wit h hemoglobin A1c goal of less than 8.0% 12/16/2013 Overview (01/06/2016): ICD-10 update of inactive term DYSLIPIDEMIA, GOAL LDL BELOW 100 08/25/2009 Overview (08/25/2009): Per Lipid Taxonomy. GERD (gastroesophageal reflux disease) 2 documented as of this encounter (statuses as of 10/17/2024) Resolved Problems Problem Noted Date Diagnosed Date [...] N1, M0) - Unsigned Esophageal stricture 07/30/2002 06/06/2 017 Dyslipidemia, goal to be determined 07/30/2002 08/25/2009 Overview (08/25/2009): Per Lipid Taxonomy. Panic disorder 02/15/2018 Menopause 05/20/2018 DM type 2, not at goal 05/18 Malignant neoplasm of other specified sites of female breast 02/13/2017 Overview (08/10/2006): left documented as of this encounter (statuses as of 10/17/2024) Immunizations Name Administration Dates Next Due COVID-19 [...] encounter Miscellaneous Notes * Telephone Encounter - Yee Jose RPh - 10/17/2024 9:18 AM EST 1st Level Appeal denied. There is an option for 2nd level appeal. 2nd level appeal can take a few weeks to hear back on decision. Sending to provider to advise. Yee Jose PharmD Medication Therapy Disease Management ([facility]) Dermatology Clinical Pharmacist 10/17/2024, 9:19 AM * Telephone Encounter - Yee Jose RPh - 10/15/2024 11:36 AM EST Called to check on appeal- insurance stating they never received request. Requested to speak to someone so I can verbally initiated. Turn around time for decision by Oct 18 at 11:47AM. Number to check on status [phone]. Will fax clinicals to both [phone] & [phone]. Will check back. Yee Jose PharmD Medication Therapy Disease Management ([facility]) Dermatology Clinical Pharmacist 10/15/2024, 11:54 AM * Telephone Encounter - Yee Jose RPh - 10/10/2024 9:25 AM EST Urgent appeal faxed. Will check back. Yee Jose PharmD Medication Therapy Disease Management ([facility]) Dermatology Clinical Pharmacist 10/10/2024, 9:26 AM * Telephone Encounter - Yee Jose RPh - 10/10/2024 8:31 AM EST Dupixent has been denied due to off label use. I do not see an option for peer to peer but there isan option for urgent appeal (72 hour turn around time) or standard appeal (7 day turn around time).Please let us know how to proceed and any other information that you would like us to include if you would like us to appeal. Thanks! Yee Jose PharmD Medication Therapy Disease Management ([facility]) Dermatology Clinical Pharmacist 10/10/2024, 8:32 AM * Telephone Encounter - Ilan Robison RPh - 10/07/2024 12:35 PM EST This message was not routed to anyone. Please submit what you can, thanks. Ilan Robison PharmD Medication Therapy Disease Management Dermatology/Rheumatology Clinical Pharmacist 10/07/2024, 12:35 PM * Telephone Encounter - Love Degroot OSA - 10/02/2024 9:00 AM EST [facility] will not allow me to submit medical literature, file size is too large.It will allow me to submit the first PDF that was sent in the email. Please advise. Thanks Love Degroot Medication Door And Arrival Attendant [facility] [phone] 10/02/2024,9:01 AM * Telephone Encounter - Trena Tate [facility] - 10/01/2024 8:16 AM EST [facility] Dermatology Pre-cert Request Please see Dermatology pre-cert request - route referral message with approval, denial or questionsback to "Dermatology Pharmacist Pool [[id number]]". - Please submit with emailed literature - Flaring - Rash spread to hands and mouth limiting her daily functions - Avoiding methotrexate as patient has CKD Therapies previously tried: - Prednisone tapers - Topicals tried: Clobetasol 0.05% ointment (super-high potency), Fluocinonide 0.05% cream (high potency), and Triamcinolone 0.1% ointment (medium potency) - Doxycycline Trena Tate [facility] Medication Therapy Disease Management Dermatology Department 10/01/2024, 8:16 AM * Telephone Encounter - Surjit Kim MD - 09/30/2024 12:24 PM EST Dermatology Pre-Cert Request Medication/Disease State Information: Medication: Dupilumab (Dupixent) Initiation: 300mg/2ml Pen - 600mg once then 300mg every two weeks (Day Supply: 8mL per 42 days) Diagnosis (including ICD-10): Bullous Pemphigoid L12.0 Site of Care: specialty medication - route to [id number]. Referral to pharmacist for: Pharmacist Co-management See corresponding visit note(s) for additional supporting clinical information. Administration Location if Injection: Patient Administered at Home Is the patient in a facility?: No Office Information: Prescriber: Dr. Surjit Kim Acutely will Initiate prednisone taper starting at 40 mg PO QD for 2 days, then 20 mg PO QD for 3 days, then 10 mg PO QD for 2 days, then stop. Should be taken in AM to limit side effects. - Side effects of prednisone including hypertension, hyperglycemia, mood changes, weight gain, upset stomach, bone density loss and fracture (with chronic use) and cataracts or glaucoma (with chronicuse). documented in this encounter Plan of Treatment Upcoming Encounters Date Type Department Care Team (Late st Contact Info) Description 10/23/2024 3:00 PM EST Office Visit Family Practice [facility] [address] [facility] [place] [address] Nel Ash, [address] [facility] [place] [address] Health Maintenance Due Date Last Done Comments [...] Monitoring 06/22/2024 06/22/2023 CKD HGB USE SMARTSET 64379 11/14/202411/14, 11/22/2022, 06/02/2022, Additional history exists CKD PHOS USE SMARTSET 71369 11/14/2024 03/0 03/2024, 02/22/2023, 11/22/2022, Additional history exists Diabetic Eye Exam 01/23/2025 01/24/2024, , 07/25/2021, Additional history exists O2 ASSESSMENT COMPLETED IN PAST YEAR FOR COPD 09/04/2025 09/04/2024 DTap/Tdap Vaccines (2 - Td or Tdap) 02/13/2027 02/13/2017, 09/27/2007 Pneumococcal Vaccine: 50+ Years Completed 09/30/2014, 05/11/2005 Zoster Vaccines Completed 06/05/2019, 02/08, 06/20/2007 VITAMIN D LEVEL ONCE IN A LIFETIME-USE SMARTSET# [id number] Completed 05/25/2020, 07/16/2018, 02/11/2018, Additional history exists [...] as of this encounter Visit Diagnoses Diagnosis Bullous pemphigoid- Primary Pemphigoid documented in this encounter Care Teams Assembler Type Bar And Segment Relationship Specialty Start Date End Date Bandar Nieves III, MD [address] [place] [address] PCP - General 10/25/00 documented as of this encounter
--- OUTSIDE RECORDS SUMMARY | 2024-10-24 21:04 | External Medical Summary | Summary of Care ---
Author Name Unknown Organization [facility] Address [address] [place] [address] Phone [phone] Care Team Providers Care Grant Coordinator Name Role Phone Ezequiel ROBBINS MD, Bandar Sims Primary Care Provider [phone] Reason for Visit * Reason Onset Date Comments Advice 10/20/2024 Staff with [facility] called to ask for a new order reducing the number of nurse visits the pt will need for at home wound care. Encounter Details Date Type Department Care Team (Late st Contact Info) Description 10/20/2024 Telephone Dermatology [facility] [address] [place] [address] Services, Scheduling [address] [place] [address] Advice (Staff with [facility] called to a... Allergies Active Allergy Reactions Criticality Noted Date Comments Penicillins Rash 08/28/2000 documented as of this encounter (statuses as of 10/21/2024) [facility] Take 1 Tablet by [...] enteric coated)Indicatio ns:Atherosclerot ic heart disease of [place] coronary artery without angina pectoris TAKE 1 [...] to be determined (HCC) 2.5 mg NEBULIZER [id number] 08/16/2018 Active documented as of this encounter [...] nodule 05/07/2018 Tobacco use disorder 05/07/2018 Old [place] (myocardial infarction) 02/15/2018 Coronary artery disease invo lving [place] coronary artery of [place] heart without angina pectoris 02/15/2018 History of [...] 10/23/2024 9:15 AM EST Office Visit Dermatology [facility] [address] [place] [address] Jett Maurer MD [address] [place] [address] 10/23/2024 3:00 PM EST Office Visit Family Practice [facility] [address] [place] [address] Nel Ash, [address] [facility] [place] [address] Health Maintenance Due Date Last Done Comments [...] Monitoring 06/22/2024 06/22/2023 CKD HGB USE SMARTSET 71075 11/14/202411/14, 11/22/2022, 06/02/2022, Additional history exists CKD PHOS USE SMARTSET 80047 11/14/2024 03/0 03/2024, 02/22/2023, 11/22/2022, Additional history exists Diabetic Eye Exam 01/23/2025 01/24/2024, , 07/25/2021, Additional history exists O2 ASSESSMENT COMPLETED IN PAST YEAR FOR COPD 09/04/2025 09/04/2024 DTap/Tdap Vaccines (2 - Td or Tdap) 02/13/2027 02/13/2017, 09/27/2007 Pneumococcal Vaccine: 50+ Years Completed 09/30/2014, 05/11/2005 Zoster Vaccines Completed 06/05/2019, 02/08, 06/20/2007 VITAMIN D LEVEL ONCE IN A LIFETIME-USE SMARTSET# [id number] Completed 05/25/2020, 07/16/2018, 02/11/2018, Additional history exists [...] filedocumented as of this encounter Care Teams Grant Coordinator Relationship Specialty Start Date End Date Bandar Nieves III, MD [address] [facility] [place] [address] PCP - General 10/25/00 documented as of this encounter
--- OUTSIDE RECORDS SUMMARY | 2024-10-24 21:04 | External Medical Summary | Summary of Care ---
Author Name Unknown Organization [facility] Address [address] [place] [address] Phone [phone] Care Team Providers Care Bindery Chief Name Role Phone Ezequiel ROBBINS MD, Bandar Sims Primary Care Provider [phone] Reason for Visit * Reason Comments Outpatient Testing Encounter Details Date Type Department Care Team (Late st Contact Info) Description 10/23/2024 11:10 AM EST Laboratory Laboratory [facility] [address] [place] [address] [facility] [address] [place] [address] Encounter for long-term (current) use of medications; Routine medical exam; Chronic cough Allergies Active Allergy Reactions Criticality Noted Date Comments Penicillins Rash 08/28/2000 documented as of this encounter (statuses as of 10/23/2024) [facility] Table[facility] Take 1 Tablet by mouth [...] HOURS LATER 120 Tablet 5 07/21/2024 Active D3 High Potency 50 MCG (2000 UT) Oral Capsule (Cholecalciferol ) TAKE 1 CAPSULE BY MOUTH ONCE DAILY IN THE MORNING 30 Capsule 5 08/23/2024 Active Ferrous Sulfate 325 (65 Fe) MG Oral Tablet (Feosol) TAKE 1 TABLET BY MOUTH IN THE MORNING AND AT BEDTIME 60 Tablet 5 08/22/2024 Active Mirtazapine 15 MG Oral Tablet (Remeron)Indicat ions:Major depressive disorder, single episode, moderate (HCC) TAKE 1 AND 1/2 TABLET BY MOUTH AT BEDTIME 45 Tablet 5 08/23/2024 Active busPIRone HCl 10 MG Oral Tablet (Buspar)Indicati ons:Anxiety state TAKE 1 TABLET BY MOUTH IN THE MORNING AND AT BEDTIME 60 Tablet 5 08/23/2024 Active Aspirin Low Dose 81 MG Oral Tablet Delayed Release (aspirin enteric coated)Indicatio ns:Atherosclerot ic heart disease of [place] coronary artery without angina pectoris TAKE 1 TABLET BY MOUTH ONCE DAILY IN THE MORNING 30 Tablet 5 08/22/2024 Active PreserVision AREDS Oral Capsule TAKE 1 CAPSULE BY MOUTH ONCE DAILY IN THE MORNING 30 Capsule 5 08/23/2024 Active Famotidine 20 MG Oral Tablet [...] MOUTH 8AM 60 Tablet 11 09/24/2024 Active Doxycycline Monohydrate 100 MG Oral CapsuleIndicatio [...] NEEDED FOR ANXIETY 30 Tablet 10/08/2024 Active Clobetasol Propionate 0.05 % External Ointment (Temovate) Apply to active rash on trunk and hands daily 60 g 10/23/2024 Active DULoxetine HCl 30 MG Oral Capsule Delayed Release Particles (Cymbalta) Take 1 Capsule by mouth in the morning. Do not cut, crush or chew. 30 Capsule 10/23/2024 Active Gabapentin 100 MG Oral Capsule (Neurontin) Take 1 Capsule by mouth in the morning and 1 Capsule at noon and 1 Capsule before bedtime. 90 Capsule 10/23/2024 Active Nystatin 198969 UNIT/ML Mouth/Throat SuspensionIndica tions:Chronic cough Take 1 mL by mouth in the morning and 1 mL at noon and 1 mL in the evening and 1 mL before bedtime. For thrush.. 60 mL 1 10/23/2024 11/23/19 25 Active Hospital, Clinic, or Other Facility Administered Medication Ordered Dose Route Frequency Start Date End Date Status albuterol sulfate (PROVENTIL) (2.5 MG/3ML) 0.083% inhalation solution 2.5 mgIndications:COPD, severity to be determined (HCC) 2.5 mg NEBULIZER [id number] 08/16/2018 Active documented as of this encounter (statuses as of 10/23/2024) Active Problems Problem Noted Date Diagnosed Date [...] nodule 05/07/2018 Tobacco use disorder 05/07/2018 Old [place] (myocardial infarction) 02/15/2018 Coronary artery disease invo lving [place] coronary artery of [place] heart without angina pectoris 02/15/2018 History of breast cancer 02/13/2017 CNH (chondrodermatitis nodularis helicis) 2013 Type 2 diabetes mellitus wit h hemoglobin A1c goal of less than 8.0% 12/16/2013 Overview (01/06/2016): ICD-10 update of inactive term DYSLIPIDEMIA, GOAL LDL BELOW 100 08/25/2009 Overview (08/25/2009): Per Lipid Taxonomy. GERD (gastroesophageal reflux disease) 2 documented as of this encounter (statuses as of 10/23/2024) Resolved Problems Problem Noted Date Diagnosed Date [...] as of this encounter (statuses as of 10/23/2024) Immunizations Name Administration Dates Next Due COVID-19 [...] PM EDT documented as of this encounter Plan of Treatment Upcoming Encounters Date Type Department Care Team (Late st Contact Info) Description 11/27/2024 3:00 PM EDT Office Visit Family Practice [facility] [address] [place], [place] [address] Nel Ash DO [address] [place], [place] [address] Pending Results Name Type Priority Associated Diagnoses Date /Time MAGNESIUM Lab Routine Encounter for long-term (current) use of medications 10/23/2024 11:30 AM EST COMPREHENSIVE METABOLIC PANEL Lab Routine Routine medical exam 10/23/2024 11:30 AM EST HEMOGLOBIN A1C Lab Routine Routine medical exam 10/23/2024 11:30 AM EST Health Maintenance Due Date Last Done Comments [...] Monitoring 06/22/2024 06/22/2023 CKD PHOS USE SMARTSET 17159 11/14/2024 03/0 03/2024, 02/22/2023, 11/22/2022, Additional history exists Diabetic Eye Exam 01/23/2025 01/24/2024, , 07/25/2021, Additional history exists CKD HGB USE SMARTSET 27462 10/23/202510/23, 11/15/2023, 11/22/2022, Additional history exists O2 ASSESSMENT COMPLETED IN PAST YEAR FOR COPD 10/23/2025 10/23/2024 DTap/Tdap Vaccines (2 - Td or Tdap) 02/13/2027 02/13/2017, 09/27/2007 Pneumococcal Vaccine: 50+ Years Completed 09/30/2014, 05/11/2005 Zoster Vaccines Completed 06/05/2019, 02/08, 06/20/2007 VITAMIN D LEVEL ONCE IN A LIFETIME-USE SMARTSET# [id number] Completed 05/25/2020, 07/16/2018, 02/11/2018, Additional history exists [...] Procedure Name Priority Date/Time Associated Diagnosis Comments CBC Routine 10/23/2024 11:30 AM EST Chronic cough documented in this encounter Results * (ABNORMAL) CBC (10/23/2024 11:30 AM EST) WBC 16.84(H) 4.00 - 10.80 K/uL 10/23/2024 11:38 AM EST [facility] 56- RBC 5.18 3.85 - 5.15 M/uL 10/23/2024 11:38 AM [facility] 56- HGB 16.0(H) 12.0 - 15.3 g/dL 10/23/2024 11:38 AM [facility] 56- HCT 51.2(H) 36.0 - 45.2 % 10/23/2024 11:38 AM [facility] 56- MCV 98.8 81.5 - 97.5 fL 10/23/2024 11:38 AM [facility] 56- MCH 30.9 27.0 - 34.0 pg 10/23/2024 11:38 AM [facility] 56-02 MCHC 31.3 32.0 - 36.0 g/dL 10/23/2024 11:38 AM [facility] 56-02 RDW 15.7 11.5 - 15.5 % 10/23/2024 11:38 AM [facility] 56-02 PLT 274 140 - 400 K/uL 10/23/2024 11:38 AM [facility] 56-02 MPV 9.4 6.6 - 11.1 fL 10/23/2024 11:38 AM [facility] 56-02 Blood Venous blood specimen / Unknown Venipuncture / Unknown 10/23/2024 11:30 AM EST 10/23/2024 11:30 AM EST Nel Ash DO LAB BLOOD ORDERABLES Fi nal Result [facility] [address] [place] [place] [address] documented in this encounter Visit Diagnoses Diagnosis Encounter for long-term (current) use of medications Encounter for long-term (current) use of other medications Routine medical exam Routine general medical examination at a [facility] Chronic cough Cough documented in this encounter Care Teams Bindery Chief Relationship Specialty Start Date End Date Ezequiel ROBBINS, Bandar Sims MD [address] [facility] [place] [address] PCP - General 10/25/00 documented as of this encounter
--- OUTSIDE RECORDS SUMMARY | 2024-10-24 21:04 | External Medical Summary | Summary of Care ---
Author Name Unknown Organization [facility] Address [address] [place] [address] Phone [phone] Care Team Providers Care Bread Icer Name Role Phone Ezequiel ROBBINS MD, Bandar Sims Primary Care Provider [phone] Reason for Visit * Reason Onset Date Comments Precert Denied 09/30/2024 Dupixent Encounter Details Date Type Department Care Team (Late st Contact Info) Description 09/30/2024 Telephone Dermatology [facility] [address] [place] [address] Surjit Kim MD [address] [place] [address] Precert Denied (Dupixent ) Allergies Active Allergy Reactions Criticality Noted Date Comments Penicillins Rash 08/28/2000 documented as of this encounter (statuses as of 10/21/2024) Medications Sent Senior Oral Tablet Take 1 [...] enteric coated)Indicati ons: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 Will check back. Yee Jose PharmD Medication Therapy Disease Management ([facility]) Dermatology Clinical Pharmacist 10/21/2024, 1:35 PM * Telephone Encounter - Yee Jose RPh - 10/17/2024 9:18 AM EST 1st Level Appeal denied. There is an option for 2nd level appeal. 2nd level appeal can take a few weeks to hear back on decision. Sending to provider to advise. Yee Jose PharmD Medication Therapy Disease Management ([facility]) Dermatology Clinical Pharmacist 10/17/2024, 9:19 AM * Telephone Encounter - Yee Jose RPh - 10/15/2024 11:36 AM EST Called to check on appeal- insurance stating they never received request. Requested to speak to someone so I can verbally initiated. Turn around time for decision by Oct 18 at 11:47AM. Number to check on status [phone]. Will fax clinicals to both [phone] & [phone]. Will check back. Yee Jose PharmD Medication Therapy Disease Management ([facility]) Dermatology Clinical Pharmacist 10/15/2024, 11:54 AM * Telephone Encounter - Yee Jose RPh - 10/10/2024 9:25 AM EST Urgent appeal faxed. Will check back. Yee Jose PharmD Medication Therapy Disease Management ([facility]) Dermatology Clinical Pharmacist 10/10/2024, 9:26 AM [...] Jose PharmD Medication Therapy Disease Management ([facility]) Dermatology Clinical Pharmacist 10/10/2024, 8:32 AM * Telephone Encounter - Ilan Robison RPh - 10/07/2024 12:35 PM EST This message was not routed to anyone. Please submit what you can, thanks. Ilan Robison PharmD Medication Therapy Disease Management Dermatology/Rheumatology Clinical Pharmacist 10/07/2024, 12:35 PM * Telephone Encounter - Love Degroot OSA - 10/02/2024 9:00 AM EST [facility] will not allow me to submit medical literature, file size is too large.It will allow me to submit the first PDF that was sent in the email. Please advise. Thanks Love Degroot Medication Agricultural Equipment Sales Manager [facility] [phone] 10/02/2024,9:01 AM * Telephone Encounter - Trena Taet RP - 10/01/2024 8:16 AM EST [facility] Dermatology Pre-cert Request Please see Dermatology pre-cert request - route referral message with approval, denial or questionsback to "Dermatology Pharmacist Pool [[id number]]". - Please submit with emailed literature - Flaring - Rash spread to hands and mouth limiting her daily functions - Avoiding methotrexate as patient has CKD Therapies previously tried: - Prednisone tapers - Topicals tried: Clobetasol 0.05% ointment (super-high potency), Fluocinonide 0.05% cream (high potency), and Triamcinolone 0.1% ointment (medium potency) - Doxycycline Trena Tate [facility] Medication Therapy Disease Management Dermatology Department 10/01/2024, 8:16 AM * Telephone Encounter - Surjit Kim MD - 09/30/2024 12:24 PM EST Dermatology Pre-Cert Request Medication/Disease State Information: Medication: Dupilumab (Dupixent) Initiation: 300mg/2ml Pen - 600mg once then 300mg every two weeks (Day Supply: 8mL per 42 days) Diagnosis (including ICD-10): Bullous Pemphigoid L12.0 Site of Care: specialty medication - route to [id number]. Referral to pharmacist for: Pharmacist Co-management See [...] 10/23/2024 9:15 AM EST Office Visit Dermatology [facility] [address] [facility] [place] [address] Jett Maurer MD [address] [facility] [place] [address] 10/23/2024 3:00 PM EST Office Visit Family Practice [facility] [address] [facility] [place] [address] Nel Ash, [address] [facility] [place] [address] Health Maintenance Due Date Last Done Comments [...] Monitoring 06/22/2024 06/22/2023 CKD HGB USE SMARTSET 77486 11/14/202411/14, 11/22/2022, 06/02/2022, Additional history exists CKD PHOS USE SMARTSET 25249 11/14/2024 03/0 03/2024, 02/22/2023, 11/22/2022, Additional history exists Diabetic Eye Exam 01/23/2025 01/24/2024, , 07/25/2021, Additional history exists O2 ASSESSMENT COMPLETED IN PAST YEAR FOR COPD 09/04/2025 09/04/2024 DTap/Tdap Vaccines (2 - Td or Tdap) 02/13/2027 02/13/2017, 09/27/2007 Pneumococcal Vaccine: 50+ Years Completed 09/30/2014, 05/11/2005 Zoster Vaccines Completed 06/05/2019, 02/08, 06/20/2007 VITAMIN D LEVEL ONCE IN A LIFETIME-USE SMARTSET# [id number] Completed 05/25/2020, 07/16/2018, 02/11/2018, Additional history exists [...] Pemphigoid documented in this encounter Care Teams Bread Icer Relationship Specialty Start Date End Date Bandar Nieves III, MD [address] [place] [address] PCP - General 10/25/00 documented as of this encounter
--- OUTSIDE RECORDS SUMMARY | 2024-10-24 21:04 | External Medical Summary | Summary of Care ---
Author Name Unknown Organization [facility] Address [address] [place] [address] Phone [phone] Care Team Providers Care Sr Technical Sales Consultant Name Role Phone Ezequiel ROBBINS MD, Bandar Sims Primary Care Provider [phone] Reason for Referral * Evaluate & Treat - Unlimited Visits (Within 30 days (routine)) - Authorized Specialty Diagnoses / Procedures Referred By Memo rod Referred To Contact HOME CARE / Home Care Diagnoses Bullous pemphigoid Flaco Ash, DO [address] [place] [address] Phone: tel: fax: Referral ID Status Reason Start Date Expiration Date Visits Requested Visits Authorized [id number] Authorized Specialty Services Required 10/15/2024 999 999 Question Answer Referral Priority Within 30 days (routine) Where should this appointment be scheduled? [facility] Comments Documentation of Fdek-rj-Pvkm Encounter Addendum Patient Name: Alexandra Agudelo I certify that this patient is under my care and that I, or a nurse practitioner or physician's media assistant working with me, had a uokg-ux-ocuf encounter that meets the physician qdom-hq-pvex encounter requirements with this patient on: 09/04/2024 [...] effort and are for medical reasons or rastafarian services or infrequently or of short duration [...] wound care Flaco Ash DO [address] [facility] [place] [address] Phone: tel: fax: Referral ID Status Reason Start Date Expiration Date Visits Requested Visits Authorized [id number] Authorized Specialty Services Required 10/01/2024 999 999 Question Answer Referral Priority Within 3 days (urgent) Where should this appointment be scheduled? [facility] Comments Documentation of Pikq-ao-Ltcq Encounter Addendum Patient Name: Alexandra Agudelo I certify that this patient is under my care and that I, or a nurse practitioner or physician's media assistant working with me, had a bkdm-dv-cxax encounter that meets the physician yiwl-uk-fwrx encounter requirements with this patient on: The [...] effort and are for medical reasons or rastafarian services or infrequently or of short duration [...] State [place] [address] [place] [address] Flaco Ash DO [address] [place] [address] Referral Allergies Active Allergy Reactions Criticality Noted Date Comments Penicillins Rash 08/28/2000 documented as of this encounter (statuses as of 10/21/2024) Medications Sentry Senior Oral Tablet Take 1 [...] enteric coated)Indicati ons: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 Appt Inpatient rehab likely won't be possible- needs to be able to do 3 hours of rehab/ exercise. Pt is SNF LOC currently, with 24 hour inpatient care manager rn at her home * Addendum Note - [...] order for hospital bed was faxed to [facility]. * Telephone Encounter - Sheba Shaw LPN - 10/01/2024 12:42 PM EST Order faxed, confirmation received. * Telephone Encounter - Jake Lee DO - 10/01/2024 12:38 PM EST We have a signed copy and Sheba is sending it now * Telephone Encounter - Kimberly Bernal OSA - 10/01/2024 12:33 PM EST Please fax to luis larios at [phone] , they need it as soon as [...] I spoke to AGNES who is in [place], she spoke to Marcia 24 hour work from home this morning. She is attaching pictures of [...] 10/23/2024 9:15 AM EST Office Visit Dermatology [facility] [place] [address] [facility] [place] [address] Jett Maurer MD [address] [facility] [place] [address] 10/23/2024 3:00 PM EST Office Visit Family Practice [facility] [place] [address] [facility] [place] [address] Flaco Ash DO [address] [facility] [place] [address] Scheduled Referrals Name Type Priority Associated Diagnoses [...] Monitoring 06/22/2024 06/22/2023 CKD HGB USE SMARTSET 90172 11/14/202411/14, 11/22/2022, 06/02/2022, Additional history exists CKD PHOS USE SMARTSET 56579 11/14/2024 03/0 03/2024, 02/22/2023, 11/22/2022, Additional history exists Diabetic Eye Exam 01/23/2025 01/24/2024, , 07/25/2021, Additional history exists O2 ASSESSMENT COMPLETED IN PAST YEAR FOR COPD 09/04/2025 09/04/2024 DTap/Tdap Vaccines (2 - Td or Tdap) 02/13/2027 02/13/2017, 09/27/2007 Pneumococcal Vaccine: 50+ Years Completed 09/30/2014, 05/11/2005 Zoster Vaccines Completed 06/05/2019, 02/08, 06/20/2007 VITAMIN D LEVEL ONCE IN A LIFETIME-USE SMARTSET# [id number] Completed 05/25/2020, 07/16/2018, 02/11/2018, Additional history exists [...] aftercare documented in this encounter Care Teams Sr Technical Sales Consultant Relationship Specialty Start Date End Date Bandar Nieves III, MD [address] [facility] [place] [address] PCP - General 10/25/00 documented as of this encounter
--- OUTSIDE RECORDS SUMMARY | 2024-10-24 21:04 | External Medical Summary | Summary of Care ---
Author Name Unknown Organization [facility] Address [address] [place] [address] Phone [phone] Care Team Providers Care Child & Adolescent Psychiatrist Name Role Phone Ezequiel ROBBINS MD, Shea Sims Primary Care Provider [phone] Reason for Visit * Reason Comments Follow Up Pt presents for foll ow up of bullous pemphigoid, animal caregiver reports pt is doing much better. Home nursing will come 3 times weekly now for bandage changes. No new concerns at this time. Encounter Details Date Type Department Care Team (Late st Contact Info) Description 10/23/2024 9:15 AM EST Office Visit Dermatology [facility] [address] [place] [address] Jett Maurer MD [address] [place] [address] Prurigo nodularis*; Bullous pemphigoid; Rash and nonspecific skin eruption Allergies Active Allergy Reactions Criticality Noted Date Comments Penicillins Rash 08/28/2000 documented as of this encounter (statuses as of 10/23/2024) Medications [facility] Oral Tablet Take 1 Tablet by mouth in the morning. 11/21/19 23 Active Stiolto Respimat 2.5-2.5 MCG/ACT Inhalation Aerosol Solution (Tiotropium-Olo daterol) Inhale 2 Puffs by mouth in the morning. 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 Take with food. 180 Capsule 10/02/19 25 Active predniSONE 20 MG Oral Tablet (Deltasone) Take 3 tablets daily for 5 days, then 2 tablets daily for 5 days, then 1 tablet daily for 5 days 30 Tablet 10/02/19 25 Active predniSONE 20 MG Oral Tablet (Deltasone) Take 2 Tablets by mouth in the morning. 50 Tablet 10/06/19 25 Active ALPRAZolam 0.25 MG Oral Tablet (xaNAX)Indicati ons:Anxiety state TAKE ONE TABLET BY MOUTH IN THE MORNING AND ONE TABLET AT BEDTIME NEEDED FOR ANXIETY 30 Tablet 10/08/19 25 Active Clobetasol Propionate 0.05 % External Ointment (Temovate) Apply to active rash on trunk and hands daily 60 g 5 10/23/19 25 Active traZODone HCl 50 MG Oral Tablet (Desyrel)Indica tions:Major depressive disorder, single episode, moderate (HCC) TAKE 1/2 TABLET BY MOUTH AT BEDTIME 15 Tablet 5 08/22/20 24 025 Discontinued Gabapentin 100 MG Oral Capsule (Neurontin) TAKE 1 CAPSULE BY MOUTH ONCE DAILY AT BEDTIME 30 Capsule 5 08/23/20 24 025 Discontinued Niacinamide 500 MG Oral Tablet Take one tablet in the morning and 1 tablet at night 90 Tablet 2 09/24/19 25 025 Discontinued Clobetasol Propionate 0.05 % External Ointment (Temovate) Apply to active rash on trunk and hands daily 60 g 5 10/02/19 25 02/13/2 025 Discontinued(Re fill) Hospital, Clinic, or Other Facility Administered Medication Ordered Dose Route Frequency Start Date End Date Status albuterol sulfate (PROVENTIL) (2.5 MG/3ML) 0.083% inhalation solution 2.5 mgIndications:COPD, severity to be determined (HCC) 2.5 mg NEBULIZER [id number] 08/16/2018 Active documented as of this encounter [...] nodule 05/07/2018 Tobacco use disorder 05/07/2018 Old [place] (myocardial infarction) 02/15/2018 Coronary artery disease invo lving [place] coronary artery of [place] heart without angina pectoris 02/15/2018 History of [...] mRNA, LNP-s, No Pre serve, 2-Dose Series ([email or web address]) 09/12/2021,01/29/2021,01/08/2021 Pneumococcal Conjugate Vacc, 13 Valent (Prevnar) [...] PM EDT documented as of this encounter Progress Notes * Jett Maurer MD - 10/23/2024 9:10 AM EST SUBJECTIVE: Chief Complaint: Chief Complaint Patient presents with Follow Up Pt presents for follow up of bullous pemphigoid, animal caregiver reports pt is doing much better. Home nursing will come 3 times weekly now for bandage changes. No new concerns at this time. HPI: Alexandra Agudelo is a 84 year old female seen for f/u bullous pemphigoid Did have pain in throat. Had some blood in sputum. Thinks may be from doxy No new new blisters on body Taking smoothies but not much water Home nursing 3x week Topical clobetasol is being applied daily Prednisone 40mg currently each AM Doxycycline 100mg BID Picking at skin OBJECTIVE: GEN: Healthy, alert, no distress, appears oriented, pleasant, and cooperative SKIN: Problem focused exam reveals: Back with large erosions Hands and feet with crusted erosions, single tense bulla on left hand Chest, abdomen with significant post inflammatory erythema, no erosions A few thin erosions on face ASSESSMENT/PLAN: Bullous pemhigoid, status: improved Developing overlying prurigo nodularis - improving with high dose oral pred and potent topical steroids - discussed need to decrease oral pred, will stay at 40mg for 1 more week, then decrease to 20mg. SER - continue topical clobetasol to all red areas - continue doxycyline 100mg BID - BP antibodies ordered - f/u with PCP today F/u 1 month Jett Maurer MD REF: SELF [address] ADDRESS AVAILABLE PCP: SHEA NIEVES III, Dr [facility] [place] [address] [phone] documented in this encounter Nursing Notes * Francine Quinones CMA - 10/23/2024 9:04 AM EST Chief Complaint Patient presents with Follow Up Pt presents for follow up of bullous pemphigoid, animal caregiver reports pt is doing much better. Home nursing will come 3 times weekly now for bandage changes. No new concerns at this time. documented in this encounter Plan of Treatment Upcoming Encounters Date Type Department Care Team (Late st Contact Info) Description 11/27/2024 3:00 PM EDT Office Visit [facility] Jessi Raven [address] [place] [address] Nel Ash, DO [address] [facility] [place], [place] [address] Scheduled Orders Name Type Priority Associated Diagnoses Orde r Schedule BULLOUS PEMPHIGOID BP180 ANTIBODY Lab Routine Bullous pemphigoid Expected: 10/23/2024, Expires: 10/23/2025 BULLOUS PEMPHIGOID BP230 ANTIBODY Lab Routine Bullous pemphigoid Expected: 10/23/2024, Expires: 10/23/2025 Health Maintenance Due Date Last Done Comments [...] Monitoring 06/22/2024 06/22/2023 CKD PHOS USE SMARTSET 33118 11/14/2024 03/0 03/2024, 02/22/2023, 11/22/2022, Additional history exists Diabetic Eye Exam 01/23/2025 01/24/2024, , 07/25/2021, Additional history exists CKD HGB USE SMARTSET 12429 10/23/202510/23, 11/15/2023, 11/22/2022, Additional history exists O2 ASSESSMENT COMPLETED IN PAST YEAR FOR COPD 10/23/2025 10/23/2024 DTap/Tdap Vaccines (2 - Td or Tdap) 02/13/2027 02/13/2017, 09/27/2007 Pneumococcal Vaccine: 50+ Years Completed 09/30/2014, 05/11/2005 Zoster Vaccines Completed 06/05/2019, 02/08, 06/20/2007 VITAMIN D LEVEL ONCE IN A LIFETIME-USE SMARTSET# [id number] Completed 05/25/2020, 07/16/2018, 02/11/2018, Additional history exists [...] as of this encounter Visit Diagnoses Diagnosis Prurigo nodularis- Primary Lichenification and lichen simplex chronicus Bullous pemphigoid Pemphigoid Rash and nonspecific skin eruption Rash and other nonspecific skin eruption documented in this encounter Care Teams Child & Adolescent Psychiatrist Relationship Specialty Start Date End Date Shea Nieves III, MD [address] [place] [address] PCP - General 10/25/00 documented as of this encounter
--- OUTSIDE RECORDS SUMMARY | 2024-10-24 21:05 | External Medical Summary | Summary of Care ---
Author Name Unknown Organization [facility] Address [address] [place] [address] Phone [phone] Care Team Providers Care Shelving Supervisor Name Role Phone Ezequiel ROBBNIS MD, Bandar Sims Primary Care Provider [phone] Reason for Referral * Evaluate & Treat - Unlimited Visits (Within 30 days (routine)) - Authorized Specialty Diagnoses / Procedures Referred By Memo rod Referred To Contact HOME CARE / Home Care Diagnoses Bullous pemphigoid Flaco Ash, DO [address] [place] [address] Phone: tel: fax: Referral ID Status Reason Start Date Expiration Date Visits Requested Visits Authorized [id number] Authorized Specialty Services Required 10/15/2024 999 999 Question Answer Referral Priority Within 30 days (routine) Where should this appointment be scheduled? [facility] Comments Documentation of Maji-aq-Kghr Encounter Addendum Patient Name: Alexandra Agudelo I certify that this patient is under my care and that I, or a nurse practitioner or physician's graduate research assistant working with me, had a tvzz-lu-hctc encounter that meets the physician rdag-ls-vawg encounter requirements with this patient on: 09/04/2024 [...] effort and are for medical reasons or pentecostalism services or infrequently or of short duration [...] wound care Flaco Ash DO [address] [facility] [place] [address] Phone: tel: fax: Referral ID Status Reason Start Date Expiration Date Visits Requested Visits Authorized [id number] Authorized Specialty Services Required 10/01/2024 999 999 Question Answer Referral Priority Within 3 days (urgent) Where should this appointment be scheduled? [facility] Comments Documentation of Oszz-vi-Blbp Encounter Addendum Patient Name: Alexandra Agudelo I certify that this patient is under my care and that I, or a nurse practitioner or physician's graduate research assistant working with me, had a bfif-mr-yndd encounter that meets the physician yppj-la-fmqy encounter requirements with this patient on: The [...] effort and are for medical reasons or pentecostalism services or infrequently or of short duration [...] State [place] [address] [place] [address] Flaco Ash DO [address] [place] [address] Referral Allergies Active Allergy Reactions Criticality Noted Date Comments Penicillins Rash 08/28/2000 documented as of this encounter (statuses as of 10/15/2024) Medications Sentry Senior Oral Tablet Take 1 [...] enteric coated)Indicati ons: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 TAKE 1 [...] to be determined (HCC) 2.5 mg NEBULIZER [id number] 08/16/2018 Active documented as of this encounter (statuses as of 10/15/2024) Active Problems Problem Noted Date Diagnosed Date [...] nodule 05/07/2018 Tobacco use disorder 05/07/2018 Old [place] (myocardial infarction) 02/15/2018 Coronary artery disease invo lving [place] coronary artery of [place] heart without angina pectoris 02/15/2018 History of breast cancer 02/13/2017 CNH (chondrodermatitis nodularis helicis) 2013 Type 2 diabetes mellitus wit h hemoglobin A1c goal of less than 8.0% 12/16/2013 Overview (01/06/2016): ICD-10 update of inactive term DYSLIPIDEMIA, GOAL LDL BELOW 100 08/25/2009 Overview (08/25/2009): Per Lipid Taxonomy. GERD (gastroesophageal reflux disease) 2 documented as of this encounter (statuses as of 10/15/2024) Resolved Problems Problem Noted Date Diagnosed Date [...] as of this encounter (statuses as of 10/15/2024) Immunizations Name Administration Dates Next Due COVID-19 mRNA, LNP-s, No Pre serve, 2-Dose Series ([employer]) 09/12/2021,01/29/2021,01/08/2021 Pneumococcal Conjugate Vacc, 13 Valent (Prevnar) [...] order for hospital bed [facility]. * Telephone Encounter - Sheba Shaw LPN - 10/01/2024 12:42 PM EST Order faxed, confirmation received. * Telephone Encounter - Jake Lee DO - 10/01/2024 12:38 PM EST We have a signed copy and Sheba is sending it now * Telephone Encounter - Kimberly Bernal OSA - 10/01/2024 12:33 PM EST Please fax to luis larios at [phone] , they need it as soon as [...] I spoke to POUriel who is in [place], she spoke to Marcia 24 hour home sales service professional this morning. She is attaching pictures of [...] 10/23/2024 3:00 PM EST Office Visit Family [facility] [address] [place] [address] [place] [address] Flaco Ash DO [address] [facility] [place] [address] Scheduled Referrals Name Type Priority Associated Diagnoses [...] Monitoring 06/22/2024 06/22/2023 CKD HGB USE SMARTSET 51240 11/14/202411/14, 11/22/2022, 06/02/2022, Additional history exists CKD PHOS USE SMARTSET 65794 11/14/2024 03/0 03/2024, 02/22/2023, 11/22/2022, Additional history exists Diabetic Eye Exam 01/23/2025 01/24/2024, , 07/25/2021, Additional history exists O2 ASSESSMENT COMPLETED IN PAST YEAR FOR COPD 09/04/2025 09/04/2024 DTap/Tdap Vaccines (2 - Td or Tdap) 02/13/2027 02/13/2017, 09/27/2007 Pneumococcal Vaccine: 50+ Years Completed 09/30/2014, 05/11/2005 Zoster Vaccines Completed 06/05/2019, 02/08, 06/20/2007 VITAMIN D LEVEL ONCE IN A LIFETIME-USE SMARTSET# [id number] Completed 05/25/2020, 07/16/2018, 02/11/2018, Additional history exists [...] aftercare documented in this encounter Care Teams Shelving Supervisor Relationship Specialty Start Date End Date Bandar Nieves III, MD [address] [place] [address] PCP - General 10/25/00 documented as of this encounter
--- OUTSIDE RECORDS SUMMARY | 2024-10-24 21:05 | External Medical Summary | Summary of Care ---
Author Name Unknown Organization [facility] Address [address] [place] [address] Phone [phone] Care Team Providers Care Supervisor Landscape Name Role Phone Ezequiel ROBBINS MD, Shea Sims Primary Care Provider [phone] Reason for Visit * Reason Comments Follow Up Patient here for 10 day follow-up for bullous pemphigoid. No real improvement per cold roll packer sheet iron. Has nurse at home. Encounter Details Date Type Department Care Team (Late st Contact Info) Description 10/06/2024 10:30 AM EST Office Visit Dermatology [facility] [address] [place] [address] Jett Maurer MD [address] [place] [address] Bullous pemphigoid*; Rash and nonspecific skin eruption; Skin erosion Allergies Active Allergy Reactions Criticality Noted Date Comments Penicillins Rash 08/28/2000 documented as of this encounter (statuses as of 10/12/2024) [facility] 1 Tablet by [...] HOURS LATER 120 Tablet 5 4 Active traZODone HCl 50 MG Oral Tablet (Desyrel)Indica tions:Major depressive disorder, single episode, moderate (HCC) TAKE 1/2 TABLET BY MOUTH AT BEDTIME 15 Tablet 5 4 Active D3 High Potency 50 MCG (2000 [...] enteric coated)Indicati ons: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 TAKE 1 TABLET BY MOUTH ONCE DAILY IN THE MORNING 30 Tablet 5 4 Active Gabapentin 100 MG Oral Capsule (Neurontin) TAKE 1 CAPSULE BY MOUTH ONCE DAILY AT BEDTIME 30 Capsule 5 4 Active PreserVision AREDS Oral Capsule [...] MOUTH 8AM 60 Tablet 11 5 Active Niacinamide 500 MG Oral Tablet Take one tablet in the morning and 1 tablet at night 90 Tablet 2 5 Active Clobetasol Propionate 0.05 % External Ointment (Temovate) Apply to active rash on trunk and hands daily 60 g 5 5 Active Doxycycline Monohydrate 100 MG Oral [...] BEDTIME NEEDED FOR ANXIETY 30 Tablet 5 025 Discontinued Hospital, Clinic, or Other Facility Administered Medication Ordered Dose Route Frequency Start Date End Date Status albuterol sulfate (PROVENTIL) (2.5 MG/3ML) 0.083% inhalation solution 2.5 mgIndications:COPD, severity to be determined (HCC) 2.5 mg NEBULIZER [id number] 08/16/2018 Active documented as of this encounter (statuses as of 10/12/2024) Active Problems Problem Noted Date Diagnosed Date [...] infarction) 02/15/2018 Coronary artery disease invo lving [place] coronary artery of [place] heart without angina pectoris 02/15/2018 History of breast cancer 02/13/2017 CNH (chondrodermatitis nodularis helicis) 2013 Type 2 diabetes mellitus wit h hemoglobin A1c goal of less than 8.0% 12/16/2013 Overview (01/06/2016): ICD-10 update of inactive term DYSLIPIDEMIA, GOAL LDL BELOW 100 08/25/2009 Overview (08/25/2009): Per Lipid Taxonomy. GERD (gastroesophageal reflux disease) 2 documented as of this encounter (statuses as of 10/12/2024) Resolved Problems Problem Noted Date Diagnosed Date [...] as of this encounter (statuses as of 10/12/2024) Immunizations Name Administration Dates Next Due COVID-19 [...] Progress Notes * Jett Maurer MD - 10/06/2024 10:35 AM EST SUBJECTIVE: Chief Complaint: Chief Complaint Patient presents with Follow Up Patient here for 10 day follow-up for bullous pemphigoid. No real improvement per cold roll packer sheet iron. Has nurse at home. HPI: Alexandra Agudelo is a 84 year old female seen for follow up of bullous pemphigoid. Here with carl Kennedy with her zochgj-pt-wie Lucy on the phone Patient has had some early signs of improvement. No significant new blisters. Patient is now able to wear her dentures again. Continues to take good PO and produce urine Currently on prednisone 40mg daily and doxycyline 100mg BID Dupixent prior-auth in progress Home nursing has starte A. Skin, right forearm, punch: Subepidermal blister with eosinophils, consistent with bullous pemphigoid. (See comment) Comment: Given the positive direct immunofluorescence studies described below, the findings are consistent with the clinical impression of bullous pemphigoid. B. Skin, right forearm, biopsy for direct immunofluorescence: IgG: Positive, linear basement membrane fluorescence, n-serrated pattern IgA: Negative C3: Positive, linear basement membrane fluorescence, n-serrated pattern Fibrin: Negative Controls: Valid OBJECTIVE: GEN: In wheelchair. Frail, but alert, pleasant and cooperative SKIN: Problem focused exam reveals: Chest, back, arms, hands with widespread erythema and overlying crusted erosions. Only a few isolated flaccid bullae Widespread dermal edema/erythema Perioral erythema with some crusting BSA Erosions/blisters - BSA 30% (primarily erosions) Many erosions > 2cm Urticaria/erythema -BSA 50% Mucosa: no significant erosions of oral mucosa ASSESSMENT/PLAN: Bullous pemphigoid, severe Mild improvement, but still severe - Continue prednisone at 60mg daily, then decrease as directed to 40mg. Stay at this dose for now - Continued to discuss potential need for admission with AGNES Agudelo. Some guarded improvement incurrent status, will keep at home for now. Reiterated that if patient unable to take PO or developsfever then she should go to ER. - Lesions of trunk and extremities were cleaned by our derm LPNs with sterile saline water, then covered in TMC ointment, and then covered with loose tubigrips. Continue to repeat this at home once daily with clobetasol ointment by home nursing - continue doxycyline, Discussed expected long course - Patient now able to wear dentures, is taking smoothies, drinking, and having regular urination - awaiting dupixent prior-auth decision F/U - Nursing 1 week F/U with me 2 weeks Jett Maurer MD REF: SELF [address] ADDRESS AVAILABLE PCP: SHEA NIEVES III, [place] [address] documented in this encounter Nursing Notes * Criselda Dorado LPN - 10/06/2024 10:30 AM EST Chief Complaint Patient presents with Follow Up Patient here for 10 day follow-up for bullous pemphigoid. No real improvement per cold roll packer sheet iron. Has nurse at home. documented in this encounter Plan of Treatment Upcoming Encounters Date Type Department Care Team (Late st Contact Info) Description 10/13/2024 2:30 PM EST Nurse Only Dermatology [facility] [address] [facility] [place] [address] Sp, Nurse Dermatology [address] [facility] [place] [address] 10/23/2024 3:00 PM EST Office Visit Family Practice [facility] [address] [facility] [place] [address] Nel Ash, DO [address] [facility] [place] [address] Health Maintenance Due Date Last Done Comments [...] Monitoring 06/22/2024 06/22/2023 CKD HGB USE SMARTSET 85165 11/14/202411/14, 11/22/2022, 06/02/2022, Additional history exists CKD PHOS USE SMARTSET 47911 11/14/2024 03/0 03/2024, 02/22/2023, 11/22/2022, Additional history exists Diabetic Eye Exam 01/23/2025 01/24/2024, , 07/25/2021, Additional history exists O2 ASSESSMENT COMPLETED IN PAST YEAR FOR COPD 09/04/2025 09/04/2024 DTap/Tdap Vaccines (2 - Td or Tdap) 02/13/2027 02/13/2017, 09/27/2007 Pneumococcal Vaccine: 50+ Years Completed 09/30/2014, 05/11/2005 Zoster Vaccines Completed 06/05/2019, 02/08, 06/20/2007 VITAMIN D LEVEL ONCE IN A LIFETIME-USE SMARTSET# [id number] Completed 05/25/2020, 07/16/2018, 02/11/2018, Additional history exists [...] Visit Diagnoses Diagnosis Bullous pemphigoid- Primary Pemphigoid Rash and nonspecific skin eruption Rash and other nonspecific skin eruption Skin erosion Unspecified disorder of skin and subcutaneous tissue documented in this encounter Care Teams Supervisor Landscape Relationship Specialty Start Date End Date Shea Nieves III, MD [address] [facility] [place] [address] PCP - General 10/25/00 documented as of this encounter
--- OUTSIDE RECORDS SUMMARY | 2024-10-24 21:05 | External Medical Summary | Summary of Care ---
Author Name Unknown Organization [facility] Address [address] [place] [address] Phone [phone] Care Team Providers Care Insurance Policy Clerk Name Role Phone Ezequiel ROBBINS MD, Bandar Sims Primary Care Provider [phone] Reason for Referral * Evaluate & Treat - Unlimited Visits (Within 30 days (routine)) - Authorized Specialty Diagnoses / Procedures Referred By Memo rod Referred To Contact HOME CARE / Home Care Diagnoses Bullous pemphigoid Flaco Ash, DO [address] [place] [address] Phone: tel: fax: Referral ID Status Reason Start Date Expiration Date Visits Requested Visits Authorized [id number] Authorized Specialty Services Required 10/15/2024 999 999 Question Answer Referral Priority Within 30 days (routine) Where should this appointment be scheduled? [facility] Comments Documentation of Dgta-sa-Dhbw Encounter Addendum Patient Name: Alexandra Agudelo I certify that this patient is under my care and that I, or a nurse practitioner or physician's emergency medicine physician assistant working with me, had a jurk-rk-ycul encounter that meets the physician bxgf-ir-hxve encounter requirements with this patient on: 09/04/2024 [...] effort and are for medical reasons or lutheran services or infrequently or of short duration [...] wound care Flaco Ash DO [address] [place] [facility] [place] [address] Phone: tel: fax: Referral ID Status Reason Start Date Expiration Date Visits Requested Visits Authorized [id number] Authorized Specialty Services Required 10/01/2024 999 999 Question Answer Referral Priority Within 3 days (urgent) Where should this appointment be scheduled? [facility] Comments Documentation of Zywo-oi-Iblq Encounter Addendum Patient Name: Alexandra Agudelo I certify that this patient is under my care and that I, or a nurse practitioner or physician's emergency medicine physician assistant working with me, had a vtkp-bu-srkd encounter that meets the physician etqg-ps-aewi encounter requirements with this patient on: The [...] effort and are for medical reasons or lutheran services or infrequently or of short duration [...] State [place] [address] [place] [address] Flaco Ash DO [address] [place] [address] Referral Allergies Active Allergy Reactions Criticality Noted [...] enteric coated)Indicati ons: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 * Telephone Encounter - Sheba Shaw LPN - 10/01/2024 12:42 PM EST Order faxed, confirmation received. * Telephone Encounter - Jake Lee DO - 10/01/2024 12:38 PM EST We have a signed copy and Sheba is sending it now * Telephone Encounter - Kimberly Bernal OSA - 10/01/2024 12:33 PM EST Please fax to luis larios at [phone] , they need it as soon as [...] I spoke to POUriel who is in [place], she spoke to Marcia 24 hour personal care home administrator this morning. She is attaching pictures of [...] 10/23/2024 3:00 PM EST Office Visit Family [facility] [address] [place] [address] [facility] [place] [address] Flaco Ash DO [address] [facility] [place] [address] Scheduled Referrals Name Type Priority Associated Diagnoses [...] Monitoring 06/22/2024 06/22/2023 CKD HGB USE SMARTSET [id number] 11/14/202411/14, 11/22/2022, 06/02/2022, Additional history exists CKD PHOS USE SMARTSET 80610 11/14/2024 03/0 03/2024, 02/22/2023, 11/22/2022, Additional history exists Diabetic Eye Exam 01/23/2025 01/24/2024, , 07/25/2021, Additional history exists O2 ASSESSMENT COMPLETED IN PAST YEAR FOR COPD 09/04/2025 09/04/2024 DTap/Tdap Vaccines (2 - Td or Tdap) 02/13/2027 02/13/2017, 09/27/2007 Pneumococcal Vaccine: 50+ Years Completed 09/30/2014, 05/11/2005 Zoster Vaccines Completed 06/05/2019, 02/08, 06/20/2007 VITAMIN D LEVEL ONCE IN A LIFETIME-USE SMARTSET# [id number] Completed 05/25/2020, 07/16/2018, 02/11/2018, Additional history exists [...] aftercare documented in this encounter Care Teams Insurance Policy Clerk Relationship Specialty Start Date End Date Bandar Nieves III, MD [address] [place] [address] PCP - General 10/25/00 documented as of this encounter
--- OUTSIDE RECORDS SUMMARY | 2024-10-24 21:05 | External Medical Summary | Summary of Care ---
Author Name Unknown Organization [facility] Address [address] [place] [address] Phone [phone] Care Team Providers Care Box Toe Cutter Name Role Phone Ezequiel ROBBINS MD, Bandar Sims Primary Care Provider [phone] Reason for Visit * Reason Onset Date Comments Precert Denied 09/30/2024 Dupixent Encounter Details Date Type Department Care Team (Late st Contact Info) Description 09/30/[address] 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 Number to check on status [phone]. Will fax clinicals to both [phone] & [phone]. Will check back. Yee Jose PharmD Medication Therapy Disease Management ([facility]) Dermatology Clinical Pharmacist 10/15/2024, 11:54 AM * Telephone Encounter - Yee Jose RPh - 10/10/2024 9:25 AM EST Urgent appeal faxed. Will check back. Yee Jose PharmD Medication Therapy Disease Management ([facility]) Dermatology Clinical Pharmacist 10/10/2024, 9:26 AM [...] Yee Jose PharmD Medication Therapy Disease Management ([facility]) Dermatology Clinical Pharmacist 10/10/2024, 8:32 AM * Telephone Encounter - Ilan Robison RP - 10/07/2024 12:35 PM EST This message was not routed to anyone. Please submit what you can, thanks. Ilan Robison PharmD Medication Therapy Disease Management Dermatology/Rheumatology Clinical Pharmacist 10/07/2024, 12:35 PM * Telephone Encounter - Love Degroot OSA - 10/02/2024 9:00 AM EST [facility] will not allow me to submit medical literature, file size is too large.It will allow me to submit the first PDF that was sent in the email. Please advise. Thanks Love Degroot Medication Community Health Nurse [facility] [phone] 10/02/2024,9:01 AM * Telephone Encounter - Trena Tate RP - 10/01/2024 8:16 AM EST [facility] Dermatology Pre-cert Request Please see Dermatology pre-cert request - route referral message with approval, denial or questionsback to "Dermatology Pharmacist Pool [[id number]]". - Please submit with emailed literature - Flaring - Rash spread to hands and mouth limiting her daily functions - Avoiding methotrexate as patient has CKD Therapies previously tried: - Prednisone tapers - Topicals tried: Clobetasol 0.05% ointment (super-high potency), Fluocinonide 0.05% cream (high potency), and Triamcinolone 0.1% ointment (medium potency) - Doxycycline Trena Tate [facility] Medication Therapy Disease Management Dermatology Department 10/01/2024, 8:16 AM * Telephone Encounter - Surjit Kim MD - 09/30/2024 12:24 PM EST Dermatology Pre-Cert Request Medication/Disease State Information: Medication: Dupilumab (Dupixent) Initiation: 300mg/2ml Pen - 600mg once then 300mg every two weeks (Day Supply: 8mL per 42 days) Diagnosis (including ICD-10): Bullous Pemphigoid L12.0 Site of Care: specialty medication - route to [id number]. Referral to pharmacist for: Pharmacist Co-management See [...] 3:00 PM EST Office Visit Family Practice [employer] [address] [facility] [place], [place] [address] Nel Ash, [address] [facility] [place] [address] Health Maintenance Due Date Last Done Comments [...] Monitoring 06/22/2024 06/22/2023 CKD HGB USE SMARTSET 08093 11/14/202411/14, 11/22/2022, 06/02/2022, Additional history exists CKD PHOS USE SMARTSET 80130 11/14/2024 03/0 03/2024, 02/22/2023, 11/22/2022, Additional history exists Diabetic Eye Exam 01/23/2025 01/24/2024, , 07/25/2021, Additional history exists O2 ASSESSMENT COMPLETED IN PAST YEAR FOR COPD 09/04/2025 09/04/2024 DTap/Tdap Vaccines (2 - Td or Tdap) 02/13/2027 02/13/2017, 09/27/2007 Pneumococcal Vaccine: 50+ Years Completed 09/30/2014, 05/11/2005 Zoster Vaccines Completed 06/05/2019, 02/08, 06/20/2007 VITAMIN D LEVEL ONCE IN A LIFETIME-USE SMARTSET# [id number] Completed 05/25/2020, 07/16/2018, 02/11/2018, Additional history exists [...] Pemphigoid documented in this encounter Care Teams Box Toe Cutter Relationship Specialty Start Date End Date Bandar Nieves III, MD [address] [place] [address] PCP - General 10/25/00 documented as of this encounter
--- OUTSIDE RECORDS SUMMARY | 2024-10-24 21:05 | External Medical Summary | Summary of Care ---
Author Name Unknown Organization [facility] Address [address] [place] [address] Phone [phone] Care Team Providers Care Metal Buildings Assembler Name Role Phone Ezequiel ROBBINS MD, Bandar Sims Primary Care Provider [phone] Reason for Referral * Evaluate & Treat - Unlimited Visits (Within 30 days (routine)) - Authorized Specialty Diagnoses / Procedures Referred By Memo rod Referred To Contact HOME CARE / Home Care Diagnoses Bullous pemphigoid Flaco Ash, DO [address] [place] [address] Phone: tel: fax: Referral ID Status Reason Start Date Expiration Date Visits Requested Visits Authorized [id number] Authorized Specialty Services Required 10/15/2024 999 999 Question Answer Referral Priority Within 30 days (routine) Where should this appointment be scheduled? [facility] Comments Documentation of Allo-rr-Xrts Encounter Addendum Patient Name: Alexandra Agudelo I certify that this patient is under my care and that I, or a nurse practitioner or physician's information assistant working with me, had a rrgs-cd-vrhs encounter that meets the physician pwdv-yq-doia encounter requirements with this patient on: 09/04/2024 [...] effort and are for medical reasons or yarsani services or infrequently or of short duration [...] wound care Flaco Ash DO [address] [place] [facility] [address] Phone: tel: fax: Referral ID Status Reason Start Date Expiration Date Visits Requested Visits Authorized [id number] Authorized Specialty Services Required 10/01/2024 999 999 Question Answer Referral Priority Within 3 days (urgent) Where should this appointment be scheduled? [facility] Comments Documentation of Nrys-wz-Anuj Encounter Addendum Patient Name: Alexandra Agudelo I certify that this patient is under my care and that I, or a nurse practitioner or physician's information assistant working with me, had a ejxq-ob-bwcc encounter that meets the physician fkso-vg-kqrw encounter requirements with this patient on: The [...] effort and are for medical reasons or yarsani services or infrequently or of short duration [...] State [place] [address] [place] [address] Flaco Ash DO [address] [place] [address] Referral Allergies Active Allergy Reactions Criticality Noted [...] enteric coated)Indicati ons: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 TAKE 1 [...] to be determined (HCC) 2.5 mg NEBULIZER [id number] 08/16/2018 Active documented as of this encounter [...] nodule 05/07/2018 Tobacco use disorder 05/07/2018 Old [place] (myocardial infarction) 02/15/2018 Coronary artery disease invo lving [place] coronary artery of [place] heart without angina pectoris 02/15/2018 History of [...] mRNA, LNP-s, No Pre serve, 2-Dose Series ([employer]) 09/12/2021,01/29/2021,01/08/2021 Pneumococcal Conjugate Vacc, 13 Valent (Prevnar) [...] order for hospital bed [facility] fax[facility] to [facility]. * Telephone Encounter - Sheba Shaw LPN - 10/01/2024 12:42 PM EST Order faxed, confirmation received. * Telephone Encounter - Jake Lee DO - 10/01/2024 12:38 PM EST We have a signed copy and Sheba is sending it now * Telephone Encounter - Kimberly Bernal OSA - 10/01/2024 12:33 PM EST Please fax to [facility] at [phone] , they need it as soon as [...] I spoke to POUriel who is in [place], she spoke to Marcia 24 hour home health outreach coordinator this morning. She is attaching pictures of [...] 10/23/2024 3:00 PM EST Office Visit Family [facility] [address] [place] [address] [facility] [place] [address] Flaco Ash DO [address] [facility] [place] [address] Scheduled Referrals Name Type Priority Associated Diagnoses [...] Monitoring 06/22/2024 06/22/2023 CKD HGB USE SMARTSET 06978 11/14/202411/14, 11/22/2022, 06/02/2022, Additional history exists CKD PHOS USE SMARTSET 19950 11/14/2024 03/0 03/2024, 02/22/2023, 11/22/2022, Additional history exists Diabetic Eye Exam 01/23/2025 01/24/2024, , 07/25/2021, Additional history exists O2 ASSESSMENT COMPLETED IN PAST YEAR FOR COPD 09/04/2025 09/04/2024 DTap/Tdap Vaccines (2 - Td or Tdap) 02/13/2027 02/13/2017, 09/27/2007 Pneumococcal Vaccine: 50+ Years Completed 09/30/2014, 05/11/2005 Zoster Vaccines Completed 06/05/2019, 02/08, 06/20/2007 VITAMIN D LEVEL ONCE IN A LIFETIME-USE SMARTSET# [id number] Completed 05/25/2020, 07/16/2018, 02/11/2018, Additional history exists [...] aftercare documented in this encounter Care Teams Metal Buildings Assembler Relationship Specialty Start Date End Date Bandar Nieves III, MD [address] [place] [address] PCP - General 10/25/00 documented as of this encounter
--- OUTSIDE RECORDS SUMMARY | 2024-10-24 21:05 | External Medical Summary | Summary of Care ---
Author Name Unknown Organization [facility] Address [address] [place] [address] Phone [phone] Care Team Providers Care Brake Repairer Bus Name Role Phone Ezequiel ROBBINS MD, Bandar Sims Primary Care Provider [phone] Reason for Referral * Evaluate & Treat - Unlimited Visits (Within 3 days (urgent)) - Authorized Specialty Diagnoses / Procedures Referred By Memo rod Referred To Contact HOME CARE / Home Care Diagnoses Bullous pemphigoid Visit for wound care Nel Ash DO [address] [place] [address] Phone: tel: fax: Referral ID Status Reason Start Date Expiration Date Visits Requested Visits Authorized [id number] Authorized Specialty Services Required 10/01/2024 999 999 Question Answer Referral Priority Within 3 days (urgent) Where should this appointment be scheduled? [facility] Comments Documentation of Ernq-ea-Fbgu Encounter Addendum Patient Name: Alexandra Agudelo I certify that this patient is under my care and that I, or a nurse practitioner or physician's insurance account assistant working with me, had a rrgv-sg-cdnp encounter that meets the physician uauq-qi-vhhk encounter requirements with this patient on: The [...] effort and are for medical reasons or latter day services or infrequently or of short duration when for other reason) because: Needs bandage/ wound care 3 times per week Physician Signature: Date of Signature: Physician Printed Name: Nel Ash DO Reason for Visit * Reason Onset Date Comments Referral 10/01/2024 Encounter Details Date Type Department Care Team (Late st Contact Info) Description 10/01/2024 Telephone Family Practice [facility] [place] [address] [facility] [place] [address] Nel Ash DO [address] [facility] [place] [address] Referral Allergies Active Allergy Reactions Criticality Noted Date Comments Penicillins Rash 08/28/2000 documented as of this encounter (statuses as of 10/14/2024) Medications [facility] Oral Tablet Take 1 Tablet by mouth [...] enteric coated)Indicati ons:Atheroscler otic heart disease of [place] coronary artery without angina pectoris TAKE 1 [...] to be determined (HCC) 2.5 mg NEBULIZER [id number] 08/16/2018 Active documented as of this encounter (statuses as of 10/14/2024) Active Problems Problem Noted Date Diagnosed Date [...] nodule 05/07/2018 Tobacco use disorder 05/07/2018 Old [place] (myocardial infarction) 02/15/2018 Coronary artery disease invo lving [place] coronary artery of [place] heart without angina pectoris 02/15/2018 History of breast cancer 02/13/2017 CNH (chondrodermatitis nodularis helicis) 2013 Type 2 diabetes mellitus wit h hemoglobin A1c goal of less than 8.0% 12/16/2013 Overview (01/06/2016): ICD-10 update of inactive term DYSLIPIDEMIA, GOAL LDL BELOW 100 08/25/2009 Overview (08/25/2009): Per Lipid Taxonomy. GERD (gastroesophageal reflux disease) 2 documented as of this encounter (statuses as of 10/14/2024) Resolved Problems Problem Noted Date Diagnosed Date [...] as of this encounter (statuses as of 10/14/2024) Immunizations Name Administration Dates Next Due COVID-19 [...] encounter Miscellaneous Notes * Addendum Note - Romaine Nowak LPN - 10/14/2024 1:25 PM ESTAddended by: ROMAINE NOWAK on: 10/14/2024 01:25 PM Modules accepted: Orders * Telephone Encounter - Romaine Nowak LPN - 10/14/2024 1:24 PM EST Order pended for reji lift and PT. Per message dated 10/09/24, order for hospital bed was faxed to [facility]. * Telephone Encounter - Sheba Shaw LPN - 10/01/2024 12:42 PM EST Order faxed, confirmation received. * Telephone Encounter - Jake Lee DO - 10/01/2024 12:38 PM EST We have a signed copy and Sheba is sending it now * Telephone Encounter - Kimberly Bernal OSA - 10/01/2024 12:33 PM EST Please fax to [facility] at [phone] , they need it as soon as possible. * Telephone Encounter - Nel Ash DO - 10/01/2024 11:13 AM EST Can one of the docs or PAs in the office today please sign paper copy Home health for nursing woundcare to go to house, preferably soon, please fax to [facility] per AGNES's request (I signed electronically). I spoke to POA who is in [place], she spoke to Marcia 24 hour mobile home technician this morning. She is attaching pictures of hands that were bandaged (bandage has been on since derm visit until today). She is tolerating pureed food, denies dehydration, does not think there is infection, would like to stayhome for now, patient does not want hospital bed or to go to hospital for admission, she will keep appt with Dr. Maurer tomorrow. Thank you! Nel Ash DO documented in this encounter Plan of Treatment Upcoming Encounters Date Type Department Care Team (Late st Contact Info) Description 10/23/2024 3:00 PM EST Office Visit Family [facility] [place] [address] [place] [address] Nel Ash DO [address] [facility] [place] [address] Scheduled Referrals Name Type Priority Associated Diagnoses Orde r Schedule HOME HEALTH REFERRAL OP Referral Within 3 days (urgent) Bullous pemphigoid Visit for wound care Ordered: 10/01/2024 Health Maintenance Due Date Last Done Comments [...] Monitoring 06/22/2024 06/22/2023 CKD HGB USE SMARTSET 70672 11/14/202411/14, 11/22/2022, 06/02/2022, Additional history exists CKD PHOS USE SMARTSET 59121 11/14/2024 03/0 03/2024, 02/22/2023, 11/22/2022, Additional history exists Diabetic Eye Exam 01/23/2025 01/24/2024, , 07/25/2021, Additional history exists O2 ASSESSMENT COMPLETED IN PAST YEAR FOR COPD 09/04/2025 09/04/2024 DTap/Tdap Vaccines (2 - Td or Tdap) 02/13/2027 02/13/2017, 09/27/2007 Pneumococcal Vaccine: 50+ Years Completed 09/30/2014, 05/11/2005 Zoster Vaccines Completed 06/05/2019, 02/08, 06/20/2007 VITAMIN D LEVEL ONCE IN A LIFETIME-USE SMARTSET# [id number] Completed 05/25/2020, 07/16/2018, 02/11/2018, Additional history exists [...] as of this encounter Visit Diagnoses Diagnosis Visit for wound care- Primary Encounter for other specified aftercare Bullous pemphigoid Pemphigoid documented in this encounter Care Teams Brake Repairer Bus Relationship Specialty Start Date End Date Bandar Nieves III, MD [address] [place] [address] PCP - General 10/25/00 documented as of this encounter
--- OUTSIDE RECORDS SUMMARY | 2024-10-24 21:06 | External Medical Summary | Summary of Care ---
Author Name Unknown Organization [facility] Address [address] [place] [address] Phone [phone] Care Team Providers Care Celery Packer Name Role Phone Ezequiel ROBBINS MD, Bandar Sims Primary Care Provider [phone] Reason for Visit * Reason Onset Date Comments Precert In Process 09/30/2024 23 [employer] Dupixent 300MG/2ML [id number] Encounter Details Date Type Department Care Team (Late st Contact Info) Description 09/30/[address] [facility] [address] [place], [place] [id number] Surjit Kim MD [address], [place] [id number] Precert In Process (23 [employer]... 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 TAKE 1 [...] to be determined (HCC) 2.5 mg NEBULIZER [id number] 08/16/2018 Active documented as of this encounter (statuses as of 10/10/2024) Active Problems Problem Noted Date Diagnosed Date [...] infarction) 02/15/2018 Coronary artery disease invo lving [place] coronary artery of [place] heart without angina pectoris 02/15/2018 History of breast cancer 02/13/2017 CNH (chondrodermatitis nodularis helicis) 2013 Type 2 diabetes mellitus wit h hemoglobin A1c goal of less than 8.0% 12/16/2013 Overview (01/06/2016): ICD-10 update of inactive term DYSLIPIDEMIA, GOAL LDL BELOW 100 08/25/2009 Overview (08/25/2009): Per Lipid Taxonomy. GERD (gastroesophageal reflux disease) 2 documented as of this encounter (statuses as of 10/10/2024) Resolved Problems Problem Noted Date Diagnosed Date [...] as of this encounter (statuses as of 10/10/2024) Immunizations Name Administration Dates Next Due COVID-19 mRNA, LNP-s, No Pre serve, 2-Dose Series ([employer]) 09/12/2021,01/29/2021,01/08/2021 Pneumococcal Conjugate Vacc, 13 Valent (Prevnar) [...] encounter Miscellaneous Notes * Telephone Encounter - Ilan Robison RPh - 10/07/2024 12:35 PM EST This message was not routed to anyone. Please submit what you can, thanks. Ilan Robison, PharmD Medication Therapy Disease Management Dermatology/Rheumatology Clinical Pharmacist 10/07/2024, 12:35 PM * Telephone Encounter - Love Degroot OSA - 10/02/2024 9:00 AM EST [facility] will not allow me to submit medical literature, file size is too large.It will allow me to submit the first PDF that was sent in the email. Please advise. Thanks Love Degroot Medication Supervisor Wet Pour [facility] [phone] 10/02/2024,9:01 AM * Telephone Encounter - Trena Tate [facility] - 10/01/2024 8:16 AM EST [facility] Dermatology Pre-cert Request Please see Dermatology pre-cert request - route referral message with approval, denial or questionsback to "Dermatology Pharmacist Pool [[id number]]". - Please submit with emailed literature - Flaring - Rash spread to hands and mouth limiting her daily functions - Avoiding methotrexate as patient has CKD Therapies previously tried: - Prednisone tapers - Topicals tried: Clobetasol 0.05% ointment (super-high potency), Fluocinonide 0.05% cream (high potency), and Triamcinolone 0.1% ointment (medium potency) - Doxycycline Trena Tate [facility] Medication Therapy Disease Management Dermatology Department 10/01/2024, 8:16 AM * Telephone Encounter - Surjit Kim MD - 09/30/2024 12:24 PM EST Dermatology Pre-Cert Request Medication/Disease State Information: Medication: Dupilumab (Dupixent) Initiation: 300mg/2ml Pen - 600mg once then 300mg every two weeks (Day Supply: 8mL per 42 days) Diagnosis (including ICD-10): Bullous Pemphigoid L12.0 Site of Care: specialty medication - route to [id number]. Referral to pharmacist for: Pharmacist Co-management See [...] 10/13/2024 2:30 PM EST Nurse Only Dermatology [facility] [place] [address] [facility] [place] [address] Sp, Nurse Dermatology [address] [facility] [place] [address] 10/23/2024 3:00 PM EST Office Visit Family Practice [facility] [place] [address] [facility] [place] [address] Nel Ash, [address] [facility] [place] [address] Health Maintenance Due Date Last Done Comments [...] Monitoring 06/22/2024 06/22/2023 CKD HGB USE SMARTSET 71201 11/14/202411/14, 11/22/2022, 06/02/2022, Additional history exists CKD PHOS USE SMARTSET 33069 11/14/2024 03/0 03/2024, 02/22/2023, 11/22/2022, Additional history exists Diabetic Eye Exam 01/23/2025 01/24/2024, , 07/25/2021, Additional history exists O2 ASSESSMENT COMPLETED IN PAST YEAR FOR COPD 09/04/2025 09/04/2024 DTap/Tdap Vaccines (2 - Td or Tdap) 02/13/2027 02/13/2017, 09/27/2007 Pneumococcal Vaccine: 50+ Years Completed 09/30/2014, 05/11/2005 Zoster Vaccines Completed 06/05/2019, 02/08, 06/20/2007 VITAMIN D LEVEL ONCE IN A LIFETIME-USE SMARTSET# [id number] Completed 05/25/2020, 07/16/2018, 02/11/2018, Additional history exists [...] Pemphigoid documented in this encounter Care Teams Celery Packer Relationship Specialty Start Date End Date Bandar Nieves III, MD [address] [place] [address] PCP - General 10/25/00 documented as of this encounter
--- OUTSIDE RECORDS SUMMARY | 2024-10-24 21:06 | External Medical Summary | Summary of Care ---
Author Name Unknown Organization [facility] Address [address] [place] [address] Phone [phone] Care Team Providers Care Panel Coverer Name Role Phone Ezequiel ROBBINS MD, Bandar Sims Primary Care Provider [phone] Reason for Visit * Reason Comments eRx-Medication Refill Encounter Details Date Type Department Care Team (Late st Contact Info) Description 10/09/2024 Refill Dermatology, [facility] Nicholas [address] [place] [id number] Yenifer Duran PA-C [address] [place], [place] [phone] Allergies Active Allergy Reactions Criticality Noted Date Comments Penicillins Rash 08/28/2000 documented as of this encounter (statuses as of 10/09/2024) [facility] Oral Table[facility] Take 1 Tablet by [...] enteric coated)Indicatio ns:Atherosclerot ic heart disease of [place] coronary artery without angina pectoris TAKE 1 [...] to be determined (HCC) 2.5 mg NEBULIZER [id number] 08/16/2018 Active documented as of this encounter (statuses as of 10/09/2024) Active Problems Problem Noted Date Diagnosed Date [...] infarction) 02/15/2018 Coronary artery disease invo lving [place] coronary artery of [place] heart without angina pectoris 02/15/2018 History of breast cancer 02/13/2017 CNH (chondrodermatitis nodularis helicis) 2013 Type 2 diabetes mellitus wit h hemoglobin A1c goal of less than 8.0% 12/16/2013 Overview (01/06/2016): ICD-10 update of inactive term DYSLIPIDEMIA, GOAL LDL BELOW 100 08/25/2009 Overview (08/25/2009): Per Lipid Taxonomy. GERD (gastroesophageal reflux disease) 2 documented as of this encounter (statuses as of 10/09/2024) Resolved Problems Problem Noted Date Diagnosed Date [...] as of this encounter (statuses as of 10/09/2024) Immunizations Name Administration Dates Next Due COVID-19 [...] encounter Miscellaneous Notes * Telephone Encounter - Luisa Marroquin, MED ASSIST - 10/09/2024 10:13 AM ESTRefused Prescriptions: Disp Refills Triamcinolone Acetonide 0.1 % External Oin*454 g 1 Sig: Apply to rash on chest, back, arms, legs, buttock, hands twice a day for 2-4 weeksRefused By: LUISA MARROQUIN PReason for Refusal: Too soon documented in this encounter Plan of Treatment Upcoming Encounters Date Type Department Care Team (Late st Contact Info) Description 10/13/2024 2:30 PM EST Nurse Only Dermatology [place] [address] [address] [place] [address] Sp, Nurse Dermatology [address] [place] [address] 10/23/2024 3:00 PM EST Office Visit Family Practice [facility] [address] [place] [address] Nel Ash, DO [address] [place] [address] Health Maintenance Due Date Last Done Comments [...] Monitoring 06/22/2024 06/22/2023 CKD HGB USE SMARTSET 32374 11/14/202411/14, 11/22/2022, 06/02/2022, Additional history exists CKD PHOS USE SMARTSET 28406 11/14/2024 03/0 03/2024, 02/22/2023, 11/22/2022, Additional history exists Diabetic Eye Exam 01/23/2025 01/24/2024, , 07/25/2021, Additional history exists O2 ASSESSMENT COMPLETED IN PAST YEAR FOR COPD 09/04/2025 09/04/2024 DTap/Tdap Vaccines (2 - Td or Tdap) 02/13/2027 02/13/2017, 09/27/2007 Pneumococcal Vaccine: 50+ Years Completed 09/30/2014, 05/11/2005 Zoster Vaccines Completed 06/05/2019, 02/08, 06/20/2007 VITAMIN D LEVEL ONCE IN A LIFETIME-USE SMARTSET# 66071 Completed 05/25/2020, 07/16/2018, 02/11/2018, Additional history exists [...] filedocumented as of this encounter Care Teams Panel Coverer Relationship Specialty Start Date End Date Bandar Nieves III, MD [address] [place] [address] PCP - General 10/25/00 documented as of this encounter
--- OUTSIDE RECORDS SUMMARY | 2024-10-24 21:06 | External Medical Summary | Summary of Care ---
Author Name Unknown Organization [facility] Address [address] [place] [address] Phone [phone] Care Team Providers Care Compliance Field Technician Name Role Phone Ezequiel ROBBINS MD, Bandar Sims Primary Care Provider [phone] Reason for Visit * Reason Onset Date Comments Precert Denied 09/30/2024 Dupixent Encounter Details Date Type Department Care Team (Late st Contact Info) Description 09/30/2024 Telephone Dermatology [facility] [address] [place] [address] Surjit Kim MD [address] [place] [address] Precert Denied (Dupixent ) Allergies Active Allergy Reactions Criticality Noted Date Comments Penicillins Rash 08/28/2000 documented as of this encounter (statuses as of 10/10/2024) Medications Sent Senior Oral Tablet Take 1 [...] enteric coated)Indicati ons:Atheroscler otic heart disease of [place] coronary artery without angina pectoris TAKE 1 [...] to be determined (HCC) 2.5 mg NEBULIZER [id number] 08/16/2018 Active documented as of this encounter [...] infarction) 02/15/2018 Coronary artery disease invo lving [place] coronary artery of [place] heart without angina pectoris 02/15/2018 History of [...] Therapy Disease Management (MTDM) Dermatology Clinical Pharmacist 10/10/2024, 8:32 AM * Telephone Encounter - Ilan Robison RPh - 10/07/2024 12:35 PM EST This message was not routed to anyone. Please submit what you can, thanks. Ilan Robison PharmD Medication Therapy Disease Management Dermatology/Rheumatology Clinical Pharmacist 10/07/2024, 12:35 PM * Telephone Encounter - Love Degroot OSA - 10/02/2024 9:00 AM EST [facility] will not allow me to submit medical literature, file size is too large.It will allow me to submit the first PDF that was sent in the email. Please advise. Thanks Love Degroot Medication Bond Trader [facility] [phone] 10/02/2024,9:01 AM * Telephone Encounter - Trena Tate [facility] - 10/01/2024 8:16 AM EST [facility] Dermatology Pre-cert Request Please see Dermatology pre-cert request - route referral message with approval, denial or questionsback to "Dermatology Pharmacist Pool [[id number]]". - Please submit with emailed literature - Flaring - Rash spread to hands and mouth limiting her daily functions - Avoiding methotrexate as patient has CKD Therapies previously tried: - Prednisone tapers - Topicals tried: Clobetasol 0.05% ointment (super-high potency), Fluocinonide 0.05% cream (high potency), and Triamcinolone 0.1% ointment (medium potency) - Doxycycline Trena Tate [facility] Medication Therapy Disease Management Dermatology Department 10/01/2024, 8:16 AM * Telephone Encounter - Surjit Kim MD - 09/30/2024 12:24 PM EST Dermatology Pre-Cert Request Medication/Disease State Information: Medication: Dupilumab (Dupixent) Initiation: 300mg/2ml Pen - 600mg once then 300mg every two weeks (Day Supply: 8mL per 42 days) Diagnosis (including ICD-10): Bullous Pemphigoid L12.0 Site of Care: specialty medication - route to [id number]. Referral to pharmacist for: Pharmacist Co-management See [...] 10/13/2024 2:30 PM EST Nurse Only Dermatology [facility] [place] [address] [facility] [place] [address] Sp, Nurse Dermatology [address] [facility] [place] [address] 10/23/2024 3:00 PM EST Office Visit Family Practice [facility] [place] [address] [facility] [place] [address] Nel Ash, DO [address] [facility] [place] [address] Health Maintenance Due Date Last Done Comments [...] Monitoring 06/22/2024 06/22/2023 CKD HGB USE SMARTSET 72141 11/14/202411/14, 11/22/2022, 06/02/2022, Additional history exists CKD PHOS USE SMARTSET 08163 11/14/2024 03/0 03/2024, 02/22/2023, 11/22/2022, Additional history exists Diabetic Eye Exam 01/23/2025 01/24/2024, , 07/25/2021, Additional history exists O2 ASSESSMENT COMPLETED IN PAST YEAR FOR COPD 09/04/2025 09/04/2024 DTap/Tdap Vaccines (2 - Td or Tdap) 02/13/2027 02/13/2017, 09/27/2007 Pneumococcal Vaccine: 50+ Years Completed 09/30/2014, 05/11/2005 Zoster Vaccines Completed 06/05/2019, 02/08, 06/20/2007 VITAMIN D LEVEL ONCE IN A LIFETIME-USE SMARTSET# [id number] Completed 05/25/2020, 07/16/2018, 02/11/2018, Additional history exists [...] Pemphigoid documented in this encounter Care Teams Compliance Field Technician Relationship Specialty Start Date End Date Ezequiel ROBBINS, Bandar Sims MD [address] [place] [address] PCP - General 10/25/00 documented as of this encounter
--- OUTSIDE RECORDS SUMMARY | 2024-10-24 21:06 | External Medical Summary | Summary of Care ---
Author Name Unknown Organization [facility] Address [address] [place] [address] Phone [phone] Care Team Providers Care Christian Science Healer Name Role Phone Ezequiel ROBBINS MD, Bandar Sims Primary Care Provider [phone] Reason for Visit * Reason Onset Date Comments Order Request 10/03/2024 Encounter Details Date Type Department Care Team (Late st Contact Info) Description 10/03/2024 Telephone Dermatology [facility] [address] [place] [address] Services, Scheduling [address] [place] [address] Order Request Allergies Active Allergy Reactions Criticality Noted Date Comments Penicillins Rash 08/28/2000 documented as of this encounter (statuses as of 10/03/2024) [facility] Tablet by [...] enteric coated)Indicatio ns:Atherosclerot ic heart disease of [place] coronary artery without angina pectoris TAKE 1 [...] Tablet before bedtime. 60 Tablet 09/04/2024 Active ALPRAZolam 0.25 MG Oral Tablet (xaNAX)Indicatio ns:Anxiety state TAKE ONE TABLET BY MOUTH IN THE MORNING AND ONE TABLET AT BEDTIME NEEDED FOR ANXIETY 30 Tablet 09/19/2024 Active diphenhydrAMINE HCl 25 MG Oral Tablet [...] for 5 days 30 Tablet 10/02/2024 Active Hospital, Clinic, or Other Facility Administered Medication Ordered Dose Route Frequency Start Date End Date Status albuterol sulfate (PROVENTIL) (2.5 MG/3ML) 0.083% inhalation solution 2.5 mgIndications:COPD, severity to be determined (HCC) 2.5 mg NEBULIZER [id number] 08/16/2018 Active documented as of this encounter (statuses as of 10/03/2024) Active Problems Problem Noted Date Diagnosed Date [...] infarction) 02/15/2018 Coronary artery disease invo lving [place] coronary artery of [place] heart without angina pectoris 02/15/2018 History of breast cancer 02/13/2017 CNH (chondrodermatitis nodularis helicis) 2013 Type 2 diabetes mellitus wit h hemoglobin A1c goal of less than 8.0% 12/16/2013 Overview (01/06/2016): ICD-10 update of inactive term DYSLIPIDEMIA, GOAL LDL BELOW 100 08/25/2009 Overview (08/25/2009): Per Lipid Taxonomy. GERD (gastroesophageal reflux disease) 2 documented as of this encounter (statuses as of 10/03/2024) Resolved Problems Problem Noted Date Diagnosed Date [...] as of this encounter (statuses as of 10/03/2024) Immunizations Name Administration Dates Next Due COVID-19 [...] encounter Miscellaneous Notes * Telephone Encounter - Jett Maurer MD - 10/03/2024 4:32 PM EST Printed and given to nursing * Telephone Encounter - Jett Maurer MD - 10/03/2024 4:30 PM EST Please apply clobetasol propionate 0.05% ointment to rash on arms, chest, back, legs once daily Jett Maurer MD * Telephone Encounter - Mila Zarate OSA - 10/03/2024 2:17 PM EST Pt's sister -in-law Lucy calling regarding the Home Health Nurse- Dr Maurer requested to come ever day. She is asking for an Order faxed to [facility] and the fax number is [phone] and their phone # is [phone].Please advise. Judith bravo documented in this encounter Plan of Treatment Upcoming Encounters Date Type Department Care Team (Late st Contact Info) Description 10/06/2024 10:30 AM EST Office Visit Dermatology [facility] [address] [place] [address] Jett Maurer MD [address] [place] [address] 10/23/2024 3:00 PM EST Office Visit Family Practice [facility] [address] [place] [address] Nel Ash, [address] [facility] [place] [address] Health Maintenance Due Date Last Done Comments [...] Monitoring 06/22/2024 06/22/2023 CKD HGB USE SMARTSET 35495 11/14/202411/14, 11/22/2022, 06/02/2022, Additional history exists CKD PHOS USE SMARTSET 22248 11/14/2024 03/03/2024, 02/22/2023, 11/22/2022, Additional history exists Diabetic Eye Exam 01/23/2025 01/24/2024, , 07/25/2021, Additional history exists O2 ASSESSMENT COMPLETED IN PAST YEAR FOR COPD 09/04/2025 09/04/2024 DTap/Tdap Vaccines (2 - Td or Tdap) 02/13/2027 02/13/2017, 09/27/2007 Pneumococcal Vaccine: 50+ Years Completed 09/30/2014, 05/11/2005 Zoster Vaccines Completed 06/05/2019, 02/08, 06/20/2007 VITAMIN D LEVEL ONCE IN A LIFETIME-USE SMARTSET# [id number] Completed 05/25/2020, 07/16/2018, 02/11/2018, Additional history exists [...] filedocumented as of this encounter Care Teams Christian Science Healer Relationship Specialty Start Date End Date Bandar Nieves III, MD [address] [place] [address] PCP - General 10/25/00 documented as of this encounter
--- OUTSIDE RECORDS SUMMARY | 2024-10-24 21:06 | External Medical Summary | Summary of Care ---
Author Name Unknown Organization [facility] Address [address] [place] [address] Phone [phone] Care Team Providers Care Basin Operator Name Role Phone Ezequiel ROBBINS MD, Shea Sims Primary Care Provider [phone] Reason for Visit * Reason Comments Follow Up bullous pemphigoid- follow up Encounter Details Date Type Department Care Team (Late st Contact Info) Description 10/02/2024 3:45 PM EST Office Visit Dermatology [facility] [address] [place] [address] Jett Maurer MD [address] [place] [address] Rash and nonspecific skin eruption*; Bullous pemphigoid; Skin erosion Allergies Active Allergy Reactions Criticality Noted Date Comments Penicillins Rash 08/28/2000 documented as of this encounter (statuses as of 10/05/2024) Medications [facility] Oral Tablet Take 1 Tablet by [...] 4 Active Mirtazapine 15 MG Oral Tablet (Remeron)Indicat [...] enteric coated)Indicatio ns: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 60 Tablet 4 Active ALPRAZolam 0.25 MG Oral Tablet (xaNAX)Indicatio ns:Anxiety state TAKE ONE TABLET BY MOUTH IN THE MORNING AND ONE TABLET AT BEDTIME NEEDED FOR ANXIETY 30 Tablet 5 Active diphenhydrAMINE HCl 25 MG Oral Tablet [...] 5 Active Doxycycline Monohydrate 100 MG Oral CapsuleIndicatio ns:Bullous pemphigoid Take 1 Capsule by mouth in the morning and 1 Capsule before bedtime. Take with food. 180 Capsule 5 Active predniSONE 20 MG Oral Tablet (Deltasone) Take 3 tablets daily for 5 days, then 2 tablets daily for 5 days, then 1 tablet daily for 5 days 30 Tablet 5 Active Doxycycline Monohydrate 100 MG Oral CapsuleIndicatio ns:Bullous pemphigoid Take 1 Capsule by mouth in the morning and 1 Capsule before bedtime. Take with food. 28 Capsule 5 10/02/19 25 Discontinu ed(Refill) Clobetasol Propionate 0.05 % External Ointment (Temovate) Apply to active rash on trunk and hands daily 60 g 5 5 10/02/19 25 Discontinu ed(Refill) predniSONE 20 MG Oral Tablet (Deltasone) Take 2 Tablets by mouth daily for 2 days, THEN 1 Tablet daily for 2 days, THEN 0.5 Tablets daily for 2 days. 7 Tablet 5 10/02/19 25 Discontinu ed(Refill) Hospital, Clinic, or Other Facility Administered Medication Ordered Dose Route Frequency Start Date End Date Status albuterol sulfate (PROVENTIL) (2.5 MG/3ML) 0.083% inhalation solution 2.5 mgIndications:COPD, severity to be determined (HCC) 2.5 mg NEBULIZER [id number] 08/16/2018 Active documented as of this encounter (statuses as of 10/05/2024) Active Problems Problem Noted Date Diagnosed Date [...] nodule 05/07/2018 Tobacco use disorder 05/07/2018 Old VA (myocardial infarction) 02/15/2018 Coronary artery disease invo lving [place] coronary artery of [place] heart without angina pectoris 02/15/2018 History of breast cancer 02/13/2017 CNH (chondrodermatitis nodularis helicis) 2013 Type 2 diabetes mellitus wit h hemoglobin A1c goal of less than 8.0% 12/16/2013 Overview (01/06/2016): ICD-10 update of inactive term DYSLIPIDEMIA, GOAL LDL BELOW 100 08/25/2009 Overview (08/25/2009): Per Lipid Taxonomy. GERD (gastroesophageal reflux disease) 2 documented as of this encounter (statuses as of 10/05/2024) Resolved Problems Problem Noted Date Diagnosed Date [...] as of this encounter (statuses as of 10/05/2024) Immunizations Name Administration Dates Next Due COVID-19 mRNA, LNP-s, No Pre serve, 2-Dose Series (PageLever) 09/12/2021,01/29/2021,01/08/2021 Pneumococcal Conjugate Vacc, 13 Valent (Prevnar) [...] Progress Notes * Jett Maurer MD - 10/02/2024 4:03 PM EST SUBJECTIVE: Chief Complaint: Chief Complaint Patient presents with Follow Up bullous pemphigoid- follow up HPI: Alexandra Agudelo is a 84 year old female seen for bullous pemphigoid. Here with aiddaniel Kennedy with her [id number]-xco Lucy on the phone Patient with worsening BP despite 40mg prednisone daily and doxycyline 100mg BID and niacinamide. Significant pain Developing sores in mouth. Painful Hands are really painful, not itchy. Blisters all over hands Eating smoothies. Urinating regularly. Dupixent prior-auth in progress Home nursing approved, will start this weekend A. Skin, right forearm, punch: Subepidermal blister [...] with widespread erythema and overlying crusted erosions. A few isolated flaccid bullae Perioral erythema with some crusting BSA Erosions/blisters - BSA 33% Many erosions > 2cm Urticaria/erythema -BSA 50% Mucosa: erosions over tongue without significant erythema ASSESSMENT/PLAN: Bullous pemphigoid, severe - Long discussion via phone with AGNES Agudelo - Lesions of trunk and extremities were cleaned by our derm LPNs with sterile saline water, then covered in betamethasone dip ointment, and then covered with loose tubigrips. This should be repeated daily with clobetasol ointment by home nursing - increase prednisone to 60mg daily for next 5 days before tapering - continue doxycyline, new script sent for 3 month supply. Discussed expected long course - Patient is taking smoothies, drinking, and having regular urination, therefore at this time I do not believe she requires admission. This was communicated with both her caregiver and her POA. AGNES is in agreement. In addition, home nursing will be available starting this weekend. If patient unableto take PO or develops fever then she should go to ER. - Will see back on Sunday to re-assess - awaiting dupixent prior-auth decision Jett Maurer MD REF: SELF [address] ADDRESS AVAILABLE PCP: SHEA NIEVES III [address] [place] [address] [phone] documented in this encounter Nursing Notes * Hina Marc LPN - 10/02/2024 3:48 PM EST Patient identified by name and date of . Do you have any concerns about pain management for today's visit? No Living Will or Advance Directive for Health Care as noted on problem list. [facility] is a way you can talk to your provider online through e-mail. Would you like to sign up? I can activate it for you? ALREADY ACTIVE Chief Complaint Patient presents with Follow Up bullous pemphigoid- follow up documented in this encounter Plan of Treatment Upcoming Encounters Date Type Department Care Team (Late st Contact Info) Description 10/06/2024 10:30 AM EST Office Visit Dermatology [facility] [address] [place] [address] Jett Maurer MD 200 [facility] [place] [address] 10/23/2024 3:00 PM EST Office Visit Family Practice [facility] [address] [place] [address] Nel Ash DO [address] [place] [address] Health Maintenance Due Date Last Done Comments [...] Monitoring 06/22/2024 06/22/2023 CKD HGB USE SMARTSET 14760 11/14/202411/14, 11/22/2022, 06/02/2022, Additional history exists CKD PHOS USE SMARTSET 60417 11/14/2024 03/0 03/2024, 02/22/2023, 11/22/2022, Additional history exists Diabetic Eye Exam 01/23/2025 01/24/2024, , 07/25/2021, Additional history exists O2 ASSESSMENT COMPLETED IN PAST YEAR FOR COPD 09/04/2025 09/04/2024 DTap/Tdap Vaccines (2 - Td or Tdap) 02/13/2027 02/13/2017, 09/27/2007 Pneumococcal Vaccine: 50+ Years Completed 09/30/2014, 05/11/2005 Zoster Vaccines Completed 06/05/2019, 02/08, 06/20/2007 VITAMIN D LEVEL ONCE IN A LIFETIME-USE SMARTSET# [id number] Completed 05/25/2020, 07/16/2018, 02/11/2018, Additional history exists [...] as of this encounter Visit Diagnoses Diagnosis Rash and nonspecific skin eruption- Primary Rash and other nonspecific skin eruption Bullous pemphigoid Pemphigoid Skin erosion Unspecified disorder of skin and subcutaneous tissue documented in this encounter Care Teams Basin Operator Relationship Specialty Start Date End Date Shea Nieves III, MD [address] [place] [address] PCP - General 10/25/00 documented as of this encounter
--- OUTSIDE RECORDS SUMMARY | 2024-10-24 21:06 | External Medical Summary | Summary of Care ---
Author Name Unknown Organization [facility] Address [address] [place] [address] Phone [phone] Care Team Providers Care Cigarette Catcher Name Role Phone Ezequiel ROBBINS MD, Bandar Sims Primary Care Provider [phone] Reason for Visit * Reason Onset Date Comments Precert In Process 09/30/2024 23 Love [employer] Dupixent 300MG/2ML [id number] Encounter Details Date Type Department Care Team (Late st Contact Info) Description 09/30/2024 Telephone Dermatology [facility] [address] [place], [place] [id number] Surjit Kim MD [address] [place], [place] [id number] Precert In Process (23 [employer]... Allergies Active Allergy Reactions Criticality Noted Date Comments Penicillins Rash 08/28/2000 documented as of this encounter (statuses as of 10/02/2024) Medications [facility] Oral Tablet Take 1 [...] enteric coated)Indicati ons:Atheroscler otic heart disease of [place] coronary artery without angina pectoris TAKE 1 [...] 4 Active ALPRAZolam 0.25 MG Oral Tablet (xaNAX)Indicati [...] 2-4 weeks 454 g 1 5 Active Doxycycline Monohydrate 100 MG Oral CapsuleIndicati ons:Bullous pemphigoid Take 1 Capsule by mouth in the morning and 1 Capsule before bedtime. Take with food. 28 Capsule 5 Active B-12 1000 MCG Oral Tablet TAKE TWO TABLETS BY MOUTH 8AM 60 Tablet 11 5 Active Clobetasol Propionate 0.05 % External Ointment (Temovate) Apply to active rash on trunk and hands daily 60 g 5 5 Active Niacinamide 500 MG Oral Tablet Take one tablet in the morning and 1 tablet at night 90 Tablet 2 5 Active predniSONE 20 MG Oral Tablet (Deltasone) Take 2 Tablets by mouth daily for 2 days, THEN 1 Tablet daily for 2 days, THEN 0.5 Tablets daily for 2 days. 7 Tablet 5 025 Active predniSONE 20 MG Oral Tablet (Deltasone)[place] cations:Bullous pemphigoid Take 3 tablets daily for 3 days, then 2 tablets daily for 3 days, then 1 tablet for 3 days 18 Tablet 5 025 Discontinued Hospital, Clinic, or Other Facility Administered Medication Ordered Dose Route Frequency Start Date End Date Status albuterol sulfate (PROVENTIL) (2.5 MG/3ML) 0.083% inhalation solution 2.5 mgIndications:COPD, severity to be determined (HCC) 2.5 mg NEBULIZER [id number] 08/16/2018 Active documented as of this encounter (statuses as of 10/02/2024) Active Problems Problem Noted Date Diagnosed Date [...] infarction) 02/15/2018 Coronary artery disease invo lving [place] coronary artery of [place] heart without angina pectoris 02/15/2018 History of breast cancer 02/13/2017 CNH (chondrodermatitis nodularis helicis) 2013 Type 2 diabetes mellitus wit h hemoglobin A1c goal of less than 8.0% 12/16/2013 Overview (01/06/2016): ICD-10 update of inactive term DYSLIPIDEMIA, GOAL LDL BELOW 100 08/25/2009 Overview (08/25/2009): Per Lipid Taxonomy. GERD (gastroesophageal reflux disease) 2 documented as of this encounter (statuses as of 10/02/2024) Resolved Problems Problem Noted Date Diagnosed Date [...] as of this encounter (statuses as of 10/02/2024) Immunizations Name Administration Dates Next Due COVID-19 [...] encounter Miscellaneous Notes * Telephone Encounter - Love Degroot OSA - 10/02/2024 9:00 AM EST [facility] will not allow me to submit medical literature, file size is too large.It will allow me to submit the first PDF that was sent in the email. Please advise. Thanks Love Degroot Medication Laborer [employer] [facility] [phone] 10/02/2024,9:01 AM * Telephone Encounter - Trena Tate [facility] - 10/01/2024 8:16 AM EST [facility] Request Please see Dermatology pre-cert request - route referral message with approval, denial or questionsback to "Dermatology Pharmacist Alfonzo [[id number]]". - Please submit with emailed literature - Flaring - Rash spread to hands and mouth limiting her daily functions - Avoiding methotrexate as patient has CKD Therapies previously tried: - Prednisone tapers - Topicals tried: Clobetasol 0.05% ointment (super-high potency), Fluocinonide 0.05% cream (high potency), and Triamcinolone 0.1% ointment (medium potency) - Doxycycline Trena Tate [facility] Medication Therapy Disease Management Dermatology Department 10/01/2024, 8:16 AM * Telephone Encounter - Surjit Kim MD - 09/30/2024 12:24 PM EST Dermatology Pre-Cert Request Medication/Disease State Information: Medication: Dupilumab (Dupixent) Initiation: 300mg/2ml Pen - 600mg once then 300mg every two weeks (Day Supply: 8mL per 42 days) Diagnosis (including ICD-10): Bullous Pemphigoid L12.0 Site of Care: specialty medication - route to [id number]. Referral to pharmacist for: Pharmacist Co-management See [...] 10/02/2024 3:45 PM EST Office Visit Dermatology [facility] [address] [place] [address] Jett Maurer MD [address] [place] [address] 10/06/2024 10:30 AM EST Office Visit Dermatology [facility] [place] [address] [facility] [place] [address] Jett Maurer MD [address] [facility] [place] [address] 10/23/2024 5:20 PM EST Office Visit Family Practice [facility] [place] [address] [facility] [place] [address] Ericka Rankin PA-C [address] [facility] [place] [address] Health Maintenance Due Date Last Done Comments [...] Monitoring 06/22/2024 06/22/2023 CKD HGB USE SMARTSET 51626 11/14/202411/14, 11/22/2022, 06/02/2022, Additional history exists CKD PHOS USE SMARTSET 84237 11/14/2024 03/0 03/2024, 02/22/2023, 11/22/2022, Additional history exists Diabetic Eye Exam 01/23/2025 01/24/2024, , 07/25/2021, Additional history exists O2 ASSESSMENT COMPLETED IN PAST YEAR FOR COPD 09/04/2025 09/04/2024 DTap/Tdap Vaccines (2 - Td or Tdap) 02/13/2027 02/13/2017, 09/27/2007 Pneumococcal Vaccine: 50+ Years Completed 09/30/2014, 05/11/2005 Zoster Vaccines Completed 06/05/2019, 02/08, 06/20/2007 VITAMIN D LEVEL ONCE IN A LIFETIME-USE SMARTSET# [id number] Completed 05/25/2020, 07/16/2018, 02/11/2018, Additional history exists [...] Pemphigoid documented in this encounter Care Teams Cigarette Catcher Relationship Specialty Start Date End Date Bandar Nieves III, MD [address] [facility] [place] [address] PCP - General 10/25/00 documented as of this encounter
--- OUTSIDE RECORDS SUMMARY | 2024-10-24 21:06 | External Medical Summary | Summary of Care ---
Author Name Unknown Organization [facility] Address [address] [place] [address] Phone [phone] Care Team Providers Care Coding File Clerk Name Role Phone Ezequiel ROBBINS MD, Bandar Sims Primary Care Provider [phone] Reason for Visit * Reason Onset Date Comments Precert Denied 09/30/2024 Dupixent Encounter Details Date Type Department Care Team (Late st Contact Info) Description 09/30/2024 Telephone Dermatology [facility] [address] [place] [address] Surjit Kim MD [address] [place] [address] Precert Denied (Dupixent ) Allergies [...] enteric coated)Indicati ons:Atheroscler otic heart disease of [place] coronary artery without angina pectoris TAKE 1 [...] to be determined (HCC) 2.5 mg NEBULIZER [id number] 08/16/2018 Active documented as of this encounter [...] infarction) 02/15/2018 Coronary artery disease invo lving [place] coronary artery of [place] heart without angina pectoris 02/15/2018 History of [...] Yee Jose PharmD Medication Therapy Disease Management ([facility]) Dermatology Clinical Pharmacist 10/10/2024, 9:26 AM * [...] Yee Jose PharmD Medication Therapy Disease Management ([facility]) Dermatology Clinical Pharmacist 10/10/2024, 8:32 AM * Telephone Encounter - Ilan Robison RPh - 10/07/2024 12:35 PM EST This message was not routed to anyone. Please submit what you can, thanks. Ilan Robison PharmD Medication Therapy Disease Management Dermatology/Rheumatology Clinical Pharmacist 10/07/2024, 12:35 PM * Telephone Encounter - Love Degroot OSA - 10/02/2024 9:00 AM EST [facility] will not allow me to submit medical literature, file size is too large.It will allow me to submit the first PDF that was sent in the email. Please advise. Thanks Love Degroot Medication Art Model [facility] [phone] 10/02/2024,9:01 AM * Telephone Encounter - Trena Tate RPh - 10/01/2024 8:16 AM EST [facility] Dermatology Pre-cert Request Please see Dermatology pre-cert request - route referral message with approval, denial or questionsback to "Dermatology Pharmacist Alfonzo [[id number]]". - Please submit with emailed literature - Flaring - Rash spread to hands and mouth limiting her daily functions - Avoiding methotrexate as patient has CKD Therapies previously tried: - Prednisone tapers - Topicals tried: Clobetasol 0.05% ointment (super-high potency), Fluocinonide 0.05% cream (high potency), and Triamcinolone 0.1% ointment (medium potency) - Doxycycline Trena Tate RPh Medication Therapy Disease Management Dermatology Department 10/01/2024, 8:16 AM * Telephone Encounter - Surjit Kim MD - 09/30/2024 12:24 PM EST Dermatology Pre-Cert Request Medication/Disease State Information: Medication: Dupilumab (Dupixent) Initiation: 300mg/2ml Pen - 600mg once then 300mg every two weeks (Day Supply: 8mL per 42 days) Diagnosis (including ICD-10): Bullous Pemphigoid L12.0 Site of Care: specialty medication - route to [id number]. Referral to pharmacist for: Pharmacist Co-management See [...] 10/13/2024 2:30 PM EST Nurse Only Dermatology [facility] [address] [place] [address] Sp, Nurse Dermatology [address] [place] [id number] 10/23/2024 3:00 PM EST Office Visit Family Practice [facility] [address] [place] [address] Nel Ash DO [address] [place] [address] Health Maintenance Due Date Last Done Comments [...] Monitoring 06/22/2024 06/22/2023 CKD HGB USE SMARTSET 51996 11/14/202411/14, 11/22/2022, 06/02/2022, Additional history exists CKD PHOS USE SMARTSET 19879 11/14/2024 03/0 03/2024, 02/22/2023, 11/22/2022, Additional history exists Diabetic Eye Exam 01/23/2025 01/24/2024, , 07/25/2021, Additional history exists O2 ASSESSMENT COMPLETED IN PAST YEAR FOR COPD 09/04/2025 09/04/2024 DTap/Tdap Vaccines (2 - Td or Tdap) 02/13/2027 02/13/2017, 09/27/2007 Pneumococcal Vaccine: 50+ Years Completed 09/30/2014, 05/11/2005 Zoster Vaccines Completed 06/05/2019, 02/08, 06/20/2007 VITAMIN D LEVEL ONCE IN A LIFETIME-USE SMARTSET# [id number] Completed 05/25/2020, 07/16/2018, 02/11/2018, Additional history exists [...] Pemphigoid documented in this encounter Care Teams Coding File Clerk Relationship Specialty Start Date End Date Bandar Nieves III, MD [address] [facility] [place] [address] PCP - General 10/25/00 documented as of this encounter
--- OUTSIDE RECORDS SUMMARY | 2024-10-24 21:06 | External Medical Summary | Summary of Care ---
Author Name Unknown Organization [facility] Address [address] [place] [address] Phone [phone] Care Team Providers Care Commutator Tester Name Role Phone Ezequiel ROBBINS MD, Bandar Sims Primary Care Provider [phone] Reason for Visit * Reason Onset Date Comments Order Request 10/03/2024 Encounter Details Date Type Department Care Team (Late st Contact Info) Description 10/03/2024 Telephone Dermatology [facility] [address] [place] [address] Services, Scheduling [address] [place] [address] Order Request Allergies Active Allergy Reactions Criticality Noted Date Comments Penicillins Rash 08/28/2000 documented as of this encounter (statuses as of 10/03/2024) Medications [facility] Oral Table[facility] Take 1 [...] enteric coated)Indicatio ns:Atherosclerot ic heart disease of [place] coronary artery without angina pectoris TAKE 1 [...] to be determined (HCC) 2.5 mg NEBULIZER [id number] 08/16/2018 Active documented as of this encounter [...] nodule 05/07/2018 Tobacco use disorder 05/07/2018 Old [place] (myocardial infarction) 02/15/2018 Coronary artery disease invo lving [place] coronary artery of [place] heart without angina pectoris 02/15/2018 History of [...] is asking for an Order faxed to [facility] and the fax number is [phone] and their phone # is [phone].Please advise. Judith bravo documented in this encounter Plan of Treatment Upcoming Encounters Date Type Department Care Team (Late st Contact Info) Description 10/06/2024 10:30 AM EST Office Visit Dermatology [facility] [address] [place] [address] Jett Maurer MD [address] [place] [id number] 10/23/2024 3:00 PM EST Office Visit Family Practice [facility] [address] [place] [address] Nel Ash, [address] [facility] [address] [address] Health Maintenance Due Date Last Done Comments [...] Monitoring 06/22/2024 06/22/2023 CKD HGB USE SMARTSET 49552 11/14/202411/14, 11/22/2022, 06/02/2022, Additional history exists CKD PHOS USE SMARTSET 44274 11/14/2024 03/03/2024, 02/22/2023, 11/22/2022, Additional history exists Diabetic Eye Exam 01/23/2025 01/24/2024, , 07/25/2021, Additional history exists O2 ASSESSMENT COMPLETED IN PAST YEAR FOR COPD 09/04/2025 09/04/2024 DTap/Tdap Vaccines (2 - Td or Tdap) 02/13/2027 02/13/2017, 09/27/2007 Pneumococcal Vaccine: 50+ Years Completed 09/30/2014, 05/11/2005 Zoster Vaccines Completed 06/05/2019, 02/08, 06/20/2007 VITAMIN D LEVEL ONCE IN A LIFETIME-USE SMARTSET# [id number] Completed 05/25/2020, 07/16/2018, 02/11/2018, Additional history exists [...] filedocumented as of this encounter Care Teams Commutator Tester Relationship Specialty Start Date End Date Bandar Nieves III, MD [address] [place] [address] PCP - General 10/25/00 documented as of this encounter
--- OUTSIDE RECORDS SUMMARY | 2024-10-24 21:06 | External Medical Summary | Summary of Care ---
Author Name Unknown Organization [facility] Address [address] [place] [address] Phone [phone] Care Team Providers Care Data Migration Consultant Name Role Phone Ezequiel ROBBINS MD, Bandar Sims Primary Care Provider [phone] Reason for Visit * Reason Onset Date Comments Medication Refill 10/06/2024 Encounter Created in Error 10/06/2024 Encounter Details Date Type Department Care Team (Late st Contact Info) Description 10/06/2024 Refill Family Practice [facility] [address] [facility] [place] [address] Bandar Nieves III, MD [address] [place] [address] Allergies Active Allergy Reactions Criticality Noted Date Comments Penicillins Rash 08/28/2000 documented as of this encounter (statuses as of 10/06/2024) Medications [facility] Oral Tablet Take 1 Tablet by [...] enteric coated)Indicatio ns: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 50 Tablet 10/06/2024 Active Hospital, Clinic, or Other Facility Administered Medication Ordered Dose Route Frequency Start Date End Date Status albuterol sulfate (PROVENTIL) (2.5 MG/3ML) 0.083% inhalation solution 2.5 mgIndications:COPD, severity to be determined (HCC) 2.5 mg NEBULIZER [id number] 08/16/2018 Active documented as of this encounter (statuses as of 10/06/2024) Active Problems Problem Noted Date Diagnosed Date [...] infarction) 02/15/2018 Coronary artery disease invo lving [place] coronary artery of [place] heart without angina pectoris 02/15/2018 History of breast cancer 02/13/2017 CNH (chondrodermatitis nodularis helicis) 2013 Type 2 diabetes mellitus wit h hemoglobin A1c goal of less than 8.0% 12/16/2013 Overview (01/06/2016): ICD-10 update of inactive term DYSLIPIDEMIA, GOAL LDL BELOW 100 08/25/2009 Overview (08/25/2009): Per Lipid Taxonomy. GERD (gastroesophageal reflux disease) 2 documented as of this encounter (statuses as of 10/06/2024) Resolved Problems Problem Noted Date Diagnosed Date [...] 05/20/2018 DM type 2, not at goal 09/08 /2009 Malignant neoplasm of other specified sites of female breast 02/13/2017 Overview (08/10/2006): left documented as of this encounter (statuses as of 10/06/2024) Immunizations Name Administration Dates Next Due COVID-19 [...] 10/13/2024 2:30 PM EST Nurse Only Dermatology [facility] [address] [facility] [place] [address] Sp, Nurse Dermatology [address] [facility] [place] [address] 10/23/2024 3:00 PM EST Office Visit Family Practice [facility] [place] [address] [facility] [place] [address] Nel Ash, DO [address] [facility] [place] [place] [address] Health Maintenance Due Date Last Done Comments Adult Wellness Visit 2005 DXA Scan 02/08/2017 02/08/2015, 01/10, 02/07/2012, Additional history exists Diabetic Foot Exam 07/30/2021 07/30/2020, 0 10/30/2019, 01/17/2019, Additional history exists *BISPHONATE OR OTHER ACCEPTABLE MEDICATION NEEDED FOR OSTEOPOROSIS (REFER TO SMARTSET #1146) 02/25/2023 Albumin/Creatinine Ratio 02/27/2024 023, 11/17/2019, 01/17/2019, Additional history exists COVID-19 Vaccine () 05/11/2024 09/12/2021, 01/29/2021, 01/08/2021 Influenza Vaccine (FLU shot) (#1) 2024 06/22/2023, 06/02/2022, 06/16/2021, Additional history exists HbA1c 05/17/2024 11/15/2023, 02/08, 11/22/2022, Additional history exists Depression Monitoring 06/22/2024 06/22/2023 CKD HGB USE SMARTSET 94127 11/14/202411/14, 11/22/2022, 06/02/2022, Additional history exists CKD PHOS USE SMARTSET 08024 11/14/2024 03/0 03/2024, 02/22/2023, 11/22/2022, Additional history exists Diabetic Eye Exam 01/23/2025 01/24/2024, , 07/25/2021, Additional history exists O2 ASSESSMENT COMPLETED IN PAST YEAR FOR COPD 09/04/2025 09/04/2024 DTap/Tdap Vaccines (2 - Td or Tdap) 02/13/2027 02/13/2017, 09/27/2007 Pneumococcal Vaccine: 50+ Years Completed 09/30/2014, 05/11/2005 Zoster Vaccines Completed 06/05/2019, 02/08, 06/20/2007 VITAMIN D LEVEL ONCE IN A LIFETIME-USE SMARTSET# [id number] Completed 05/25/2020, 07/16/2018, 02/11/2018, Additional history exists [...] filedocumented as of this encounter Care Teams Data Migration Consultant Relationship Specialty Start Date End Date Bandar Nieves III, MD [address] [place] [address] PCP - General 10/25/00 documented as of this encounter
--- OUTSIDE RECORDS SUMMARY | 2024-10-24 21:06 | External Medical Summary | Summary of Care ---
Author Name Unknown Organization [facility] Address [address] [place] [address] Phone [phone] Care Team Providers Care Item Processor Name Role Phone Ezequiel ROBBINS MD, Bandar Sims Primary Care Provider [phone] Reason for Visit * Reason Onset Date Comments Precert Denied 09/30/2024 Dupixent Encounter Details Date Type Department Care Team (Late st Contact Info) Description 09/30/2024 Telephone Dermatology [facility] [address] [place] [address] Surjit Kim MD [address] [place] [address] Precert Denied (Dupixent ) Allergies [...] enteric coated)Indicati ons:Atheroscler otic heart disease of [place] coronary artery without angina pectoris TAKE 1 [...] to be determined (HCC) 2.5 mg NEBULIZER [id number] 08/16/2018 Active documented as of this encounter [...] nodule 05/07/2018 Tobacco use disorder 05/07/2018 Old [place] (myocardial infarction) 02/15/2018 Coronary artery disease invo lving [place] coronary artery of [place] heart without angina pectoris 02/15/2018 History of [...] submit what you can, thanks. Ilan Robison, NishiD Medication Therapy Disease Management Dermatology/Rheumatology Clinical Pharmacist 10/07/2024, 12:35 PM * Telephone Encounter - Love Degroot OSA - 10/02/2024 9:00 AM EST [facility] will not allow me to submit medical literature, file size is too large.It will allow me to submit the first PDF that was sent in the email. Please advise. Thanks Love Degroot Medication [facility] [phone] 10/02/2024,9:01 AM * Telephone Encounter - Trena Tate [facility] - 10/01/2024 8:16 AM EST [facility] Dermatology Pre-cert Request Please see Dermatology pre-cert request - route referral message with approval, denial or questionsback to "Dermatology Pharmacist Alfonzo [[id number]]". - Please submit with emailed literature - Flaring - Rash spread to hands and mouth limiting her daily functions - Avoiding methotrexate as patient has CKD Therapies previously tried: - Prednisone tapers - Topicals tried: Clobetasol 0.05% ointment (super-high potency), Fluocinonide 0.05% cream (high potency), and Triamcinolone 0.1% ointment (medium potency) - Doxycycline Trena Tate [facility] Medication Therapy Disease Management Dermatology Department 10/01/2024, 8:16 AM * Telephone Encounter - Surjit Kim MD - 09/30/2024 12:24 PM EST Dermatology Pre-Cert Request Medication/Disease State Information: Medication: Dupilumab (Dupixent) Initiation: 300mg/2ml Pen - 600mg once then 300mg every two weeks (Day Supply: 8mL per 42 days) Diagnosis (including ICD-10): Bullous Pemphigoid L12.0 Site of Care: specialty medication - route to [id number]. Referral to pharmacist for: Pharmacist Co-management See [...] 10/13/2024 2:30 PM EST Nurse Only Dermatology [facility] [place] [place] [address] [place] [address] Sp, Nurse Dermatology [address] [facility] [place] [address] 10/23/2024 3:00 PM EST Office Visit Family Practice [facility] [place] [address] [place] [address] Nel Ash, [address] [facility] [place] [address] Health Maintenance Due Date Last Done Comments [...] Monitoring 06/22/2024 06/22/2023 CKD HGB USE SMARTSET 08523 11/14/202411/14, 11/22/2022, 06/02/2022, Additional history exists CKD PHOS USE SMARTSET 78562 11/14/20240 03/2024, 02/22/2023, 11/22/2022, Additional history exists Diabetic Eye Exam 01/23/2025 01/24/2024, , 07/25/2021, Additional history exists O2 ASSESSMENT COMPLETED IN PAST YEAR FOR COPD 09/04/2025 09/04/2024 DTap/Tdap Vaccines (2 - Td or Tdap) 02/13/2027 02/13/2017, 09/27/2007 Pneumococcal Vaccine: 50+ Years Completed 09/30/2014, 05/11/2005 Zoster Vaccines Completed 06/05/2019, 02/08, 06/20/2007 VITAMIN D LEVEL ONCE IN A LIFETIME-USE SMARTSET# [id number] Completed 05/25/2020, 07/16/2018, 02/11/2018, Additional history exists [...] Pemphigoid documented in this encounter Care Teams Item Processor Relationship Specialty Start Date End Date Bandar Nieves III, MD [address] [place] [address] PCP - General 10/25/00 documented as of this encounter
--- OUTSIDE RECORDS SUMMARY | 2024-10-24 21:07 | External Medical Summary | Summary of Care ---
Author Name Unknown Organization [facility] Address [address] [place] [address] Phone [phone] Care Team Providers Care Industrial Gas Servicer Helper Name Role Phone Ezequiel ROBBINS MD, Bandar Sims Primary Care Provider [phone] Reason for Visit * Reason Onset Date Comments Other 09/30/2024 Encounter Details Date Type Department Care Team (Late st Contact Info) Description 09/30/2024 Telephone Dermatology [facility] [address] [place] [address] Surjit Kim MD [address] [place] [address] Other Allergies Active Allergy Reactions Criticality Noted Date Comments Penicillins Rash 08/28/2000 documented as of this encounter (statuses as of 09/30/2024) [facility] Take 1 Tablet by mouth [...] enteric coated)Indicatio ns:Atherosclerot ic heart disease of [place] coronary artery without angina pectoris TAKE 1 [...] 2-4 weeks 454 g 1 09/17/2024 Active Doxycycline Monohydrate 100 MG Oral CapsuleIndicatio ns:Bullous pemphigoid Take 1 Capsule by mouth in the morning and 1 Capsule before bedtime. Take with food. 28 Capsule 09/21/2024 Active B-12 1000 MCG Oral Tablet TAKE TWO TABLETS BY MOUTH 8AM 60 Tablet 11 09/24/2024 Active Clobetasol Propionate 0.05 % External Ointment (Temovate) Apply to active rash on trunk and hands daily 60 g 5 09/24/2024 Active Niacinamide 500 MG Oral Tablet Take one tablet in the morning and 1 tablet at night 90 Tablet 2 09/24/2024 Active predniSONE 20 MG Oral Tablet (Deltasone) Take 2 Tablets by mouth daily for 2 days, THEN 1 Tablet daily for 2 days, THEN 0.5 Tablets daily for 2 days. 7 Tablet 09/30/2024 10/06/19 25 Active Hospital, Clinic, or Other Facility Administered Medication Ordered Dose Route Frequency Start Date End Date Status albuterol sulfate (PROVENTIL) (2.5 MG/3ML) 0.083% inhalation solution 2.5 mgIndications:COPD, severity to be determined (HCC) 2.5 mg NEBULIZER [id number] 08/16/2018 Active documented as of this encounter (statuses as of 09/30/2024) Active Problems Problem Noted Date Diagnosed Date [...] nodule 05/07/2018 Tobacco use disorder 05/07/2018 Old [place] (myocardial infarction) 02/15/2018 Coronary artery disease invo lving [place] coronary artery of [place] heart without angina pectoris 02/15/2018 History of breast cancer 02/13/2017 CNH (chondrodermatitis nodularis helicis) 2013 Type 2 diabetes mellitus wit h hemoglobin A1c goal of less than 8.0% 12/16/2013 Overview (01/06/2016): ICD-10 update of inactive term DYSLIPIDEMIA, GOAL LDL BELOW 100 08/25/2009 Overview (08/25/2009): Per Lipid Taxonomy. GERD (gastroesophageal reflux disease) 2 documented as of this encounter (statuses as of 09/30/2024) Resolved Problems Problem Noted Date Diagnosed Date [...] as of this encounter (statuses as of 09/30/2024) Immunizations Name Administration Dates Next Due COVID-19 mRNA, LNP-s, No Pre serve, 2-Dose Series (Nexavis) 09/12/2021,01/29/2021,01/08/2021 Pneumococcal Conjugate Vacc, 13 Valent (Prevnar) [...] encounter Miscellaneous Notes * Telephone Encounter - Surjit Kim MD - 09/30/2024 8:59 PM EST Discussed with Lucy Agudelo AGNES and daughter in law. Image sent of oral mucosa. On image, possible involvement of distal tip of tongue and slight erosion to right buccal mucosa. Unclear if there is a component of thrush. Will require in-person evaluation. AGNES was able to find a nurse that will assist Alexandra in her home. Additionally, informed she is at the top of the cancellation list with dermatol ogy providers in [place], close to her home. Recommended continuation of prednisone, doxycycline, niacinamide, and topical clobetasol. Call/message if any worsening and I am able to see this patient in [place] if needed. Manager Purchasing and POA in agreement with plan. * Telephone Encounter - Terra Locke OSA - 09/30/2024 5:25 PM EST E[address]se [address] had called in regards to patient, had said she spoken to you approx. 30 minutes ago, wanted to let you know she had sent a picture of Alexandra's blisters in mouth through [employer]. Wanted to know if you could view picture and advise her if patient, Alexandra is to come in and beseen. Elyse's phone number is [phone]. Thank you! SILVIA Lynn documented in this encounter Plan of Treatment Upcoming Encounters Date Type Department Care Team (Late st Contact Info) Description 10/06/2024 10:30 AM EST Office Visit Dermatology [facility] [address] [place] [address] Jett Maurer MD 200 [facility] [place] [address] 10/23/2024 5:20 PM EST Office Visit Family Practice [facility] [place] [address] [place] [address] Ericka Rankin PA-C 200 [facility] [place] [address] Health Maintenance Due Date Last Done Comments [...] Monitoring 06/22/2024 06/22/2023 CKD HGB USE SMARTSET 49584 11/14/202411/14, 11/22/2022, 06/02/2022, Additional history exists CKD PHOS USE SMARTSET 42190 11/14/2024 03/0 03/2024, 02/22/2023, 11/22/2022, Additional history [...] filedocumented as of this encounter Care Teams Industrial Gas Servicer Helper Relationship Specialty Start Date End Date Bandar Nieves III, MD [address] [place] [address] PCP - General 10/25/00 documented as of this encounter
--- OUTSIDE RECORDS SUMMARY | 2024-10-24 21:07 | External Medical Summary | Summary of Care ---
Author Name Unknown Organization [facility] Address [address] [place] [address] Phone [phone] Care Team Providers Care Torpedoman'S Mate Name Role Phone Ezequiel ROBBINS MD, Bandar Sims Primary Care Provider [phone] Reason for Visit * Reason Onset Date Comments Appointment 09/26/2024 Encounter Details Date Type Department Care Team (Late st Contact Info) Description 09/26/2024 Telephone Dermatology [facility] [address] [place] [address] Jett Maurer MD [address] [place] [address] Appointment Allergies Active Allergy Reactions Criticality Noted Date Comments Penicillins Rash 08/28/2000 documented as of this encounter (statuses as of 09/29/2024) Medications [facility] Oral Tablet Take 1 Tablet by [...] enteric coated)Indicatio ns:Atherosclerot ic heart disease of [place] coronary artery without angina pectoris TAKE 1 [...] Take with food. 28 Capsule 09/21/2024 Active predniSONE 20 MG Oral Tablet (Deltasone)Indic ations:Bullous pemphigoid Take 3 tablets daily for 3 days, then 2 tablets daily for 3 days, then 1 tablet for 3 days 18 Tablet 09/21/2024 Active B-12 1000 MCG Oral Tablet TAKE TWO TABLETS BY MOUTH 8AM 60 Tablet 11 09/24/2024 Active Clobetasol Propionate 0.05 % External Ointment (Temovate) Apply to active rash on trunk and hands daily 60 g 5 09/24/2024 Active Niacinamide 500 MG Oral Tablet Take one tablet in the morning and 1 tablet at night 90 Tablet 2 09/24/2024 Active Hospital, Clinic, or Other Facility Administered Medication Ordered Dose Route Frequency Start Date End Date Status albuterol sulfate (PROVENTIL) (2.5 MG/3ML) 0.083% inhalation solution 2.5 mgIndications:COPD, severity to be determined (HCC) 2.5 mg NEBULIZER [id number] 08/16/2018 Active documented as of this encounter (statuses as of 09/29/2024) Active Problems Problem Noted Date Diagnosed Date [...] infarction) 02/15/2018 Coronary artery disease invo lving [place] coronary artery of [place] heart without angina pectoris 02/15/2018 History of breast cancer 02/13/2017 CNH (chondrodermatitis nodularis helicis) 2013 Type 2 diabetes mellitus wit h hemoglobin A1c goal of less than 8.0% 12/16/2013 Overview (01/06/2016): ICD-10 update of inactive term DYSLIPIDEMIA, GOAL LDL BELOW 100 08/25/2009 Overview (08/25/2009): Per Lipid Taxonomy. GERD (gastroesophageal reflux disease) 2 documented as of this encounter (statuses as of 09/29/2024) Resolved Problems Problem Noted Date Diagnosed Date [...] as of this encounter (statuses as of 09/29/2024) Immunizations Name Administration Dates Next Due COVID-19 [...] encounter Miscellaneous Notes * Telephone Encounter - Apolonia Garcia OSA - 09/26/2024 1:45 PM EST Called cell # in chart, which is her POA and sister in law,Lucy. She said to call her for anythingwe need because patient doesn't answer her phone. Scheduled patient with Dr. Maurer on 10/06/24 at10:30 AM at [facility]. * Telephone Encounter - Apolonia Garcia OSA - 09/26/2024 10:25 AM EST Called patient's home #, left message to return call. Need to get patient scheduled with Dr. Maurer for a 10-14 day f/u appointment. Please message me to get appointment dates/times to offer. documented in this encounter Plan of Treatment Upcoming Encounters Date Type Department Care Team (Late st Contact Info) Description 10/06/2024 10:30 AM EST Office Visit Dermatology [facility] [place] [address] [facility] [place] [address] Jett Maurer MD 200 [facility] [place] [address] 10/23/2024 5:20 PM EST Office Visit Family Practice [facility] [place] [address] [place] [address] Ericka Rankin PA-C [address] [place] [address] Health Maintenance Due Date Last Done Comments [...] Monitoring 06/22/2024 06/22/2023 CKD HGB USE SMARTSET 10772 11/14/202411/14, 11/22/2022, 06/02/2022, Additional history exists CKD PHOS USE SMARTSET 47347 11/14/2024 03/0 03/2024, 02/22/2023, 11/22/2022, Additional history exists Diabetic Eye Exam 01/23/2025 01/24/2024, , 07/25/2021, Additional history exists O2 ASSESSMENT COMPLETED IN PAST YEAR FOR COPD 09/04/2025 09/04/2024 DTap/Tdap Vaccines (2 - Td or Tdap) 02/13/2027 02/13/2017, 09/27/2007 Pneumococcal Vaccine: 50+ Years Completed 09/30/2014, 05/11/2005 Zoster Vaccines Completed 06/05/2019, 02/08, 06/20/2007 VITAMIN D LEVEL ONCE IN A LIFETIME-USE SMARTSET# [id number] Completed 05/25/2020, 07/16/2018, 02/11/2018, Additional history exists [...] filedocumented as of this encounter Care Teams Torpedoman'S Mate Relationship Specialty Start Date End Date Bandar Nieves III, MD [address] [facility] [place] [address] PCP - General 10/25/00 documented as of this encounter
--- OUTSIDE RECORDS SUMMARY | 2024-10-24 21:07 | External Medical Summary | Summary of Care ---
Author Name Unknown Organization [facility] Address [address] [place] [address] Phone [phone] Care Team Providers Care Lard Refiner Name Role Phone Ezequiel ROBBINS MD, Bandar Sims Primary Care Provider [phone] Reason for Referral * Evaluate & Treat - Unlimited Visits (Within 3 days (urgent)) - Authorized Specialty Diagnoses / Procedures Referred By Memo rod Referred To Contact HOME CARE / Home Care Diagnoses Bullous pemphigoid Visit for wound care Nel Ash DO [address] [place] [address] Phone: tel: fax: Referral ID Status Reason Start Date Expiration Date Visits Requested Visits Authorized [id number] Authorized Specialty Services Required 10/01/[phone] Question Answer Referral Priority Within 3 days (urgent) Where should this appointment be scheduled? Lorraine Comments Documentation of Dehd-ft-Mkox Encounter Addendum Patient Name: Alexandra Agudelo I certify that this patient is under my care and that I, or a nurse practitioner or physician's assistant sales center manager working with me, had a [id number] encounter that meets the physician ndpw-ii-ohok encounter requirements with this patient on: The [...] effort and are for medical reasons or christian services or infrequently or of short duration when for other reason) because: Needs bandage/ wound care 3 times per week Physician Signature: Date of Signature: Physician Printed Name: Nel Ash DO Reason for Visit * Reason Onset Date Comments Referral 10/01/2024 Encounter Details Date Type Department Care Team (Late st Contact Info) Description 10/01/2024 Telephone Family Practice [facility] [place] [address] [facility] [place] [address] Nel Ash DO 200 [facility] [place] [address] Referral Allergies Active Allergy Reactions Criticality Noted Date Comments Penicillins Rash 08/28/2000 documented as of this encounter (statuses as of 10/01/2024) Medications [facility] Oral Tablet Take 1 Tablet by mouth [...] BY MOUTH AT BEDTIME 15 Tablet 5 08/22/2024 Active D3 High Potency 50 MCG [...] enteric coated)Indicatio ns:Atherosclerot ic heart disease of [place] coronary artery without angina pectoris TAKE 1 TABLET BY MOUTH ONCE DAILY IN THE MORNING 30 Tablet 5 08/22/2024 Active Gabapentin 100 MG Oral Capsule (Neurontin) TAKE 1 CAPSULE BY MOUTH ONCE DAILY AT BEDTIME 30 Capsule 5 08/23/2024 Active PreserVision AREDS Oral Capsule TAKE [...] to be determined (HCC) 2.5 mg NEBULIZER [id number] 08/16/2018 Active documented as of this encounter (statuses as of 10/01/2024) Active Problems Problem Noted Date Diagnosed Date [...] infarction) 02/15/2018 Coronary artery disease invo lving [place] coronary artery of [place] heart without angina pectoris 02/15/2018 History of breast cancer 02/13/2017 CNH (chondrodermatitis nodularis helicis) 2013 Type 2 diabetes mellitus wit h hemoglobin A1c goal of less than 8.0% 12/16/2013 Overview (01/06/2016): ICD-10 update of inactive term DYSLIPIDEMIA, GOAL LDL BELOW 100 08/25/2009 Overview (08/25/2009): Per Lipid Taxonomy. GERD (gastroesophageal reflux disease) 2 documented as of this encounter (statuses as of 10/01/2024) Resolved Problems Problem Noted Date Diagnosed Date [...] as of this encounter (statuses as of 10/01/2024) Immunizations Name Administration Dates Next Due COVID-19 [...] encounter Miscellaneous Notes * Telephone Encounter - Sheba Shaw LPN - 10/01/2024 12:42 PM EST Order faxed, confirmation received. * Telephone Encounter - Jake Lee DO - 10/01/2024 12:38 PM EST We have a signed copy and Sheba is sending it now * Telephone Encounter - Kimberly Bernal OSA - 10/01/2024 12:33 PM EST Please fax to [facility]uis [facility] at [phone] , they need it as soon as [...] I spoke to POUriel who is in [place], she spoke to Marcia 24 hour group home worker this morning. She is attaching pictures of [...] 10/02/2024 3:45 PM EST Office Visit Dermatology [facility] [place] [address] [place] [address] Jett Maurer MD [address] [place] [address] 10/06/2024 10:30 AM EST Office Visit [facility] [address] [place] [address] Jett Maurer MD [address] [place] [address] 10/23/2024 5:20 PM EST Office Visit Family Practice [facility] [address] [place] [address] Ericka Rankin PA-C [address] [place] [address] Scheduled Referrals Name Type Priority Associated Diagnoses [...] Monitoring 06/22/2024 06/22/2023 CKD HGB USE SMARTSET 60087 11/14/202411/14, 11/22/2022, 06/02/2022, Additional history exists CKD PHOS USE SMARTSET 61498 11/14/2024 03/0 03/2024, 02/22/2023, 11/22/2022, Additional history exists Diabetic Eye Exam 01/23/2025 01/24/2024, , 07/25/2021, Additional history exists O2 ASSESSMENT COMPLETED IN PAST YEAR FOR COPD 09/04/2025 09/04/2024 DTap/Tdap Vaccines (2 - Td or Tdap) 02/13/2027 02/13/2017, 09/27/2007 Pneumococcal Vaccine: 50+ Years Completed 09/30/2014, 05/11/2005 Zoster Vaccines Completed 06/05/2019, 02/08, 06/20/2007 VITAMIN D LEVEL ONCE IN A LIFETIME-USE SMARTSET# [id number] Completed 05/25/2020, 07/16/2018, 02/11/2018, Additional history exists [...] Pemphigoid documented in this encounter Care Teams Lard Refiner Relationship Specialty Start Date End Date Bandar Nieves III, MD [address] [facility] [place] [address] PCP - General 10/25/00 documented as of this encounter
--- OUTSIDE RECORDS SUMMARY | 2024-10-24 21:07 | External Medical Summary | Summary of Care ---
Author Name Unknown Organization [facility] Address [address] [place] [address] Phone [phone] Care Team Providers Care Linux Server Engineer Name Role Phone Ezequiel ROBBINS MD, Bandar Sims Primary Care Provider [phone] Reason for Visit * Reason Comments Rash Occurred a little ov er a month ago, bumps and lesions appearing over whole body she is unable to pick things up the caretetaker stated Encounter Details Date Type Department Care Team (Late st Contact Info) Description 09/24/2024 2:20 PM EST Office Visit Dermatology [facility] [address] [place] [address] Surjit Kim MD [address], [place] [id number] Bullous pemphigoid* Allergies Active Allergy Reactions Criticality Noted Date Comments Penicillins Rash 08/28/2000 documented as of this encounter (statuses as of 09/24/2024) Medications [facility] Oral Tablet Take 1 [...] enteric coated)Indicatio ns:Atherosclerot ic heart disease of [place] coronary artery without angina pectoris TAKE 1 [...] to be determined (HCC) 2.5 mg NEBULIZER [id number] 08/16/2018 Active documented as of this encounter (statuses as of 09/24/2024) Active Problems Problem Noted Date Diagnosed Date [...] nodule 05/07/2018 Tobacco use disorder 05/07/[address] (myocardial infarction) 02/15/2018 Coronary artery disease invo lving [place] coronary artery of [place] heart without angina pectoris 02/15/2018 History of breast cancer 02/13/2017 CNH (chondrodermatitis nodularis helicis) 2013 Type 2 diabetes mellitus wit h hemoglobin A1c goal of less than 8.0% 12/16/2013 Overview (01/06/2016): ICD-10 update of inactive term DYSLIPIDEMIA, GOAL LDL BELOW 100 08/25/2009 Overview (08/25/2009): Per Lipid Taxonomy. GERD (gastroesophageal reflux disease) 2 documented as of this encounter (statuses as of 09/24/2024) Resolved Problems Problem Noted Date Diagnosed Date [...] as of this encounter (statuses as of 09/24/2024) Immunizations Name Administration Dates Next Due COVID-19 [...] 0 02/08/1972 - 02/08/2022 Smokeless Tobacco: Never Tobacco Cessation:Counseling Given: Not Answered Comments:02/04/21 currently smoking 10 cig/day Alcohol Use [...] as of this encounter Progress Notes * Surjit Kim MD - 09/24/2024 5:27 PM EST Subjective: Alexandra Agudelo is a 84 year old female seen for follow up of bullous pemphigoid. Rash started about1 month ago. No new medications at this time. Associated with pruritus. Has been on several short prednisone bursts with minimal improvement. Was last seen on 09/17/23 where she underwent biopsy and was proven to have BP. She was flaring over the weekend and subsequently started on oral doxycycline 1 00mg BID along with an extended 9 day prednisone taper. Since then, rash has continued to spread and involve her hands which limits her daily functions of life. She is here today with a summer nanny AGNES(sister in law) is also available via phone call. Review of Systems: General: no fevers/chills, fatigue, unintended weight loss or weight gain Skin: No other concerning moles, rashes, smith, or lesions Pertinent past medical, family medical, and social history: As in hpi Current Outpatient Medications Medication Sig Dispense Refill [facility] Oral Tablet Take 1 Tablet by mouth in the morning. Stiolto Respimat 2.5-2.5 MCG/ACT Inhalation Aerosol Solution (Tiotropium- Olodaterol) Inhale 2 Puffsby mouth in the morning. 4 g 11 Meclizine HCl 12.5 MG Oral Tablet (Antivert) Take 1 Tablet by mouth 3 times a day as needed for Dizziness. 30 Tablet 1 Omeprazole 40 MG Oral Capsule Delayed Release (PriLOSEC) TAKE 1 CAPSULE BY MOUTH IN THE MORNING ANDAT BEDTIME 180 Capsule 1 Arthritis Pain Relief 650 MG Oral Tablet Extended Release (Acetaminophen ER) TAKE 2 TABLETS BY MOUTH AT BEDTIME, 2 TABS IN THE MORNING, MAY TAKE 2 MORE 8 HOURS LATER 120 Tablet 5 traZODone HCl 50 MG Oral Tablet (Desyrel) TAKE 1/2 TABLET BY MOUTH AT BEDTIME 15 Tablet 5 D3 High Potency 50 MCG (2000 UT) Oral Capsule (Cholecalciferol) TAKE 1 CAPSULE BY MOUTH ONCE DAILY IN THE MORNING 30 Capsule 5 Ferrous Sulfate 325 (65 Fe) MG Oral Tablet (Feosol) TAKE 1 TABLET BY MOUTH IN THE MORNING AND AT BEDTIME 60 Tablet 5 Mirtazapine 15 MG Oral Tablet (Remeron) TAKE 1 AND 1/2 TABLET BY MOUTH AT BEDTIME 45 Tablet 5 busPIRone HCl 10 MG Oral Tablet (Buspar) TAKE 1 TABLET BY MOUTH IN THE MORNING AND AT BEDTIME 60 Tablet 5 Aspirin Low Dose 81 MG Oral Tablet Delayed Release (aspirin enteric coated) TAKE 1 TABLET BY MOUTH ONCE DAILY IN THE MORNING 30 Tablet 5 Gabapentin 100 MG Oral Capsule (Neurontin) TAKE 1 CAPSULE BY MOUTH ONCE DAILY AT BEDTIME 30 Capsule5 PreserVision AREDS Oral Capsule TAKE 1 CAPSULE BY MOUTH ONCE DAILY IN THE MORNING 30 Capsule 5 Famotidine 20 MG Oral Tablet (Pepcid) Take 1 Tablet by mouth in the morning and 1 Tablet before bedtime. 60 Tablet 0 Cetirizine HCl 10 MG Oral Tablet (ZyrTEC) Take 1 Tablet by mouth in the morning and 1 Tablet beforebedtime. 60 Tablet 0 ALPRAZolam 0.25 MG Oral Tablet (xaNAX) TAKE ONE TABLET BY MOUTH IN THE MORNING AND ONE TABLET AT BEDTIME NEEDED FOR ANXIETY 30 Tablet 0 diphenhydrAMINE HCl 25 MG Oral Tablet (Benadryl Allergy) Take 1 Tablet by mouth at bedtime as needed for Itching. Triamcinolone Acetonide 0.1 % External Ointment (Aristocort) Apply to rash on chest, back, arms, legs, buttock, hands twice a day for 2-4 weeks 454 g 1 Doxycycline Monohydrate 100 MG Oral Capsule Take 1 Capsule by mouth in the morning and 1 Capsule before bedtime. Take with food. 28 Capsule 0 predniSONE 20 MG Oral Tablet (Deltasone) Take 3 tablets daily for 3 days, then 2 tablets daily for 3 days, then 1 tablet for 3 days 18 Tablet 0 B-12 1000 MCG Oral Tablet TAKE TWO TABLETS BY MOUTH 8AM 60 Tablet 11 Current Facility-Administered Medications Medication Dose Route Frequency Provider Last Rate Last Admin albuterol sulfate (PROVENTIL) (2.5 MG/3ML) 0.083% inhalation solution 2.5 mg 2.5 mg Nebulizer Resp Q6H Barbi Vargas, DOCUMENTATION DESIGNER 2.5 mg at 11/28/18 9946 Review of patient's allergies indicates: Allergen Reactions Penicillins Rash Objective: Physical Exam: GENERAL: Healthy, alert, and no distress. SKIN: Skin exam of scalp, face, neck, chest, abdomen, back, bilateral upper extremities, hands, bilateral lower extremities, feet, nails, and buttock completed. Normal except: A. Tense bullae, eroded pink plaques, and heme crust scattered on hands, forearms, chest, back, buttock, medial thighs A. Skin, right forearm, punch: Subepidermal blister [...] fluorescence, n-serrated pattern Fibrin: Negative Controls: Valid Assessment and Plan: A. Bullous Pemphigoid - finish prednisone taper - Prescribed Clobetasol 0.05 % ointment 1-2x/day for up to 2 weeks - Discussed possible side effects with inappropriate use including: skin thinning, dyspigmentation,striae - continue doxycycline 100mg BID, add Niacinamide 500 MG Oral Tablet BID - betamethasone 0.05% diproprionate ointment under occlusion to hands today - discussed steel pan form placing supervisor option for dupixent if fails current treatment plan Follow-up: 10-14 days Patient was seen and examined with Dr. Davis Kim MD 09/24/2024 5:27 PM documented in this encounter Plan of Treatment Upcoming Encounters Date Type Department Care Team (Late st Contact Info) Description 10/23/2024 5:20 PM EST Office Visit Family Practice [facility] [place] [address] [facility] [place] [address] Ericka Rankin PA-C 200 [facility] [place] [address] Health Maintenance Due Date Last Done Comments [...] Monitoring 06/22/2024 06/22/2023 CKD HGB USE SMARTSET 97048 11/14/202411/14, 11/22/2022, 06/02/2022, Additional history exists CKD PHOS USE SMARTSET 25833 11/14/2024 03/0 03/2024, 02/22/2023, 11/22/2022, Additional history exists Diabetic Eye Exam 01/23/2025 01/24/2024, , 07/25/2021, Additional history exists O2 ASSESSMENT COMPLETED IN PAST YEAR FOR COPD 09/04/2025 09/04/2024 DTap/Tdap Vaccines (2 - Td or Tdap) 02/13/2027 02/13/2017, 09/27/2007 Pneumococcal Vaccine: 50+ Years Completed 09/30/2014, 05/11/2005 Zoster Vaccines Completed 06/05/2019, 02/08, 06/20/2007 VITAMIN D LEVEL ONCE IN A LIFETIME-USE SMARTSET# [id number] Completed 05/25/2020, 07/16/2018, 02/11/2018, Additional history exists [...] Pemphigoid documented in this encounter Care Teams Linux Server Engineer Relationship Specialty Start Date End Date Bandar Nieves III, MD [address] [place] [address] PCP - General 10/25/00 documented as of this encounter
--- OUTSIDE RECORDS SUMMARY | 2024-10-24 21:07 | External Medical Summary | Summary of Care ---
Author Name Unknown Organization [facility] Address [address] [place] [address] Phone [phone] Care Team Providers Care Children'S Literature Professor Name Role Phone Ezequiel ROBBINS MD, Bandar Sims Primary Care Provider [phone] Encounter Details Date Type Department Care Team (Late st Contact Info) Description 09/30/2024 Telephone Dermatology [facility] [address] [place] [address] Surjit Kim MD [address] [place] [address] Allergies Active Allergy Reactions Criticality Noted Date Comments Penicillins Rash 08/28/2000 documented as of this encounter (statuses as of 10/01/2024) Medications [facility] Oral Tablet Take 1 Tablet [...] enteric coated)Indicati ons:Atheroscler otic heart disease of [place] coronary artery without angina pectoris TAKE 1 [...] to be determined (HCC) 2.5 mg NEBULIZER [id number] 08/16/2018 Active documented as of this encounter [...] nodule 05/07/2018 Tobacco use disorder 05/07/2018 Old [place] (myocardial infarction) 02/15/2018 Coronary artery disease invo lving [place] coronary artery of [place] heart without angina pectoris 02/15/2018 History of [...] mRNA, LNP-s, No Pre serve, 2-Dose Series (CHEQROOM) 09/12/2021,01/29/2021,01/08/2021 Pneumococcal Conjugate Vacc, 13 Valent (Prevnar) [...] encounter Miscellaneous Notes * Telephone Encounter - Trena Tate RPh - 10/01/2024 8:16 AM EST [facility] Dermatology Pre-cert Request Please see Dermatology pre-cert request - route referral message with approval, denial or questionsback to "Dermatology Pharmacist Pool [[id number]]". - Please submit with emailed literature - [...] of Care: specialty medication - route to [id number]. Referral to pharmacist for: Pharmacist Co-management See [...] 10/06/2024 10:30 AM EST Office Visit Dermatology [facility] [place] [facility] [place] [address] Jett Maurer MD 200 [facility] [place] [address] 10/23/2024 5:20 PM EST Office Visit Family Practice [facility] [place] [address] [place] [address] Ericka Rankin PA-C 200 [facility] [place] [address] Health Maintenance Due Date Last Done Comments [...] Monitoring 06/22/2024 06/22/2023 CKD HGB USE SMARTSET 31447 11/14/202411/14, 11/22/2022, 06/02/2022, Additional history exists CKD PHOS USE SMARTSET 36378 11/14/2024 03/0 03/2024, 02/22/2023, 11/22/2022, Additional history exists Diabetic Eye Exam 01/23/2025 01/24/2024, , 07/25/2021, Additional history exists O2 ASSESSMENT COMPLETED IN PAST YEAR FOR COPD 09/04/2025 09/04/2024 DTap/Tdap Vaccines (2 - Td or Tdap) 02/13/2027 02/13/2017, 09/27/2007 Pneumococcal Vaccine: 50+ Years Completed 09/30/2014, 05/11/2005 Zoster Vaccines Completed 06/05/2019, 02/08, 06/20/2007 VITAMIN D LEVEL ONCE IN A LIFETIME-USE SMARTSET# [id number] Completed 05/25/2020, 07/16/2018, 02/11/2018, Additional history exists [...] Pemphigoid documented in this encounter Care Teams Children'S Literature Professor Relationship Specialty Start Date End Date Ezequiel III, Bandar E, MD [address] [facility] [place] [address] PCP - General 10/25/00 documented as of this encounter
--- OUTSIDE RECORDS SUMMARY | 2024-10-24 21:07 | External Medical Summary | Summary of Care ---
Author Name Unknown Organization [facility] Address [address] [place] [address] Phone [phone] Care Team Providers Care Water Server Name Role Phone Ezequiel ROBBINS MD, Bandar Sims Primary Care Provider [phone] Encounter Details Date Type Department Care Team (Late st Contact Info) Description 09/30/2024 Telephone Dermatology [facility] [address] [place] [address] Surjit Kim MD [address] [place] [address] Allergies Active Allergy Reactions Criticality Noted Date Comments Penicillins Rash 08/28/2000 documented as of this encounter (statuses as of 09/30/2024) Medications [facility] Oral Tablet Take 1 Tablet by mouth [...] enteric coated)Indicati ons:Atheroscler otic heart disease of [place] coronary artery without angina pectoris TAKE 1 [...] to be determined (HCC) 2.5 mg NEBULIZER [id number] 08/16/2018 Active documented as of this encounter [...] nodule 05/07/2018 Tobacco use disorder 05/07/2018 Old [place] (myocardial infarction) 02/15/2018 Coronary artery disease invo lving [place] coronary artery of [place] heart without angina pectoris 02/15/2018 History of [...] mRNA, LNP-s, No Pre serve, 2-Dose Series ([facility]) 09/12/2021,01/29/2021,01/08/2021 Pneumococcal Conjugate Vacc, 13 Valent (Prevnar) [...] of Care: specialty medication - route to [id number]. Referral to pharmacist for: Pharmacist Co-management See [...] 10/06/2024 10:30 AM EST Office Visit Dermatology [place] 200 [facility] [place], [place] [address] Jett Maurer MD 200 [place] [address] 10/23/2024 5:20 PM EST Office Visit Family Practice [facility] [place] [address] [facility] [place] [address] Ericka Rankin PA-C [address] [facility] [place] [address] Health Maintenance Due Date Last Done Comments [...] Monitoring 06/22/2024 06/22/2023 CKD HGB USE SMARTSET 97237 11/14/202411/14, 11/22/2022, 06/02/2022, Additional history exists CKD PHOS USE SMARTSET 68526 11/14/2024 03/0 03/2024, 02/22/2023, 11/22/2022, Additional history exists Diabetic Eye Exam 01/23/2025 01/24/2024, , 07/25/2021, Additional history exists O2 ASSESSMENT COMPLETED IN PAST YEAR FOR COPD 09/04/2025 09/04/2024 DTap/Tdap Vaccines (2 - Td or Tdap) 02/13/2027 02/13/2017, 09/27/2007 Pneumococcal Vaccine: 50+ Years Completed 09/30/2014, 05/11/2005 Zoster Vaccines Completed 06/05/2019, 02/08, 06/20/2007 VITAMIN D LEVEL ONCE IN A LIFETIME-USE SMARTSET# [id number] Completed 05/25/2020, 07/16/2018, 02/11/2018, Additional history exists [...] Pemphigoid documented in this encounter Care Teams Water Server Relationship Specialty Start Date End Date Bandar Nieves III, MD 200 [place] [address] PCP - General 10/25/00 documented as of this encounter
--- OUTSIDE RECORDS SUMMARY | 2024-10-24 21:07 | External Medical Summary | Summary of Care ---
Author Name Unknown Organization [facility] Address [address] [place] [address] Phone [phone] Care Team Providers Care Extender Name Role Phone Ezequiel ROBBINS MD, John E Primary Care Provider [phone] Reason for Visit * Reason Onset Date Comments Medication Refill 09/23/2024 Encounter Details Date Type Department Care Team (Late st Contact Info) Description 09/23/2024 Refill Family Practice [facility] [address] [place] [address] Shea Sanz III, MD [address] [place] [address] Allergies Active Allergy Reactions Criticality Noted Date Comments Penicillins Rash 08/28/2000 documented as of this encounter (statuses as of 09/24/2024) Medications [facility] Oral Tablet Take 1 Tablet by mouth [...] enteric coated)Indicatio ns:Atherosclerot ic heart disease of [place] coronary artery without angina pectoris TAKE 1 [...] Take with food. 28 Capsule 5 Active predniSONE 20 MG Oral Tablet (Deltasone)Indic ations:Bullous pemphigoid Take 3 tablets daily for 3 days, then 2 tablets daily for 3 days, then 1 tablet for 3 days 18 Tablet 5 Active B-12 1000 MCG Oral Tablet TAKE TWO TABLETS BY MOUTH 8AM 60 Tablet 11 5 Active B-12 1000 MCG Oral Tablet TAKE TWO TABLETS BY MOUTH 8AM 60 Tablet 11 4 09/23/19 25 Discontinu ed(Refill) Hospital, Clinic, or Other Facility Administered Medication Ordered Dose Route Frequency Start Date End Date Status albuterol sulfate (PROVENTIL) (2.5 MG/3ML) 0.083% inhalation solution 2.5 mgIndications:COPD, severity to be determined (HCC) 2.5 mg NEBULIZER [id number] 08/16/2018 Active documented as of this encounter [...] infarction) 02/15/2018 Coronary artery disease invo lving [place] coronary artery of [place] heart without angina pectoris 02/15/2018 History of [...] encounter Miscellaneous Notes * Telephone Encounter - Shea Sanz III, MD - 09/24/2024 8:10 AM ESTSigned Prescriptions: Disp Refills B-12 1000 MCG Oral Tablet 60 Tab*11 Sig: TAKE TWO TABLETS BY MOUTH 8AMAuthorizing Provider: SHEA SANZ III * Telephone Encounter - Nettie Tariq RPh - 09/24/2024 7:10 AM EST Refill pharmacists currently not authorized to approve refills for this class of medication per refill protocol. Please approve if appropriate. Thank you, Nettie Tariq, PharmD. Clinical Pharmacist Pharmacy Refill Call Center 09/24/2024, 7:10 AM * Telephone Encounter - Nettie Tariq RPh - 09/24/2024 7:10 AM EST Pending Prescriptions: Disp Refills B-12 1000 MCG Oral Tablet 60 Tab*11 Sig: TAKE TWO TABLETS BY MOUTH 8AM * Telephone Encounter - Mariam Winn, director child abuse therapy - 09/23/2024 1:04 PM EST Did you pend patient's preferred pharmacy and medication before forwarding?yes Pharmacy: [facility] [address] Pending Prescriptions: Disp Refills B-12 1000 MCG Oral Tablet 60 Tab*11 Sig: TAKE TWO TABLETS BY MOUTH 8AM Last Visit: 09/04/2024 (in office), 09/16/2020 (telemedicine) Next Visit: 10/23/2024 If no future appointments scheduled, and last appointment is greater than a year ago, please schedule patient for a follow-up appointment Last date the medication was ordered: 09/20/2023 Is this request for a controlled substance?No Urine Drug Screen:No results found. However, due to the size of the patient record, not all encounters were searched. Please check Results Review for a complete set of results. Patient Phone Numbers Labs: Lab Results Component Value Date/Time CREAT 1.5 (H) 11/15/2023 12:06 PM CREAT 1.59 (A) 12/07/2020 12:00 AM CREAT 1.4 (H) 07/30/2020 01:00 PM POTASSIUM 4.4 11/15/2023 12:06 PM POTASSIUM 4.0 12/07/2020 12:00 AM POTASSIUM 3.8 07/30/2020 01:00 PM TSH 1.38 10/12/2020 12:59 PM TSH 0.66 07/30/2020 01:00 PM LDL 292 (H) 11/15/2023 12:06 PM LDL 70 05/25/2020 01:28 PM LDL NOT APPLICABLE 05/25/2020 01:28 PM ALT 9 (L) 11/15/2023 12:06 PM ALT 12 07/30/2020 01:00 PM HGBA1C 5.3 11/15/2023 12:06 PM HGBA1C 5.7 (H) 05/25/2020 01:28 PM documented in this encounter Plan of Treatment Upcoming Encounters Date Type Department Care Team (Late st Contact Info) Description 10/23/2024 5:20 PM EST Office Visit Family Practice [facility] [address] [place] [address] Ericka Rankin PA-C [address] [place] [address] Health Maintenance Due Date Last Done Comments [...] Monitoring 06/22/2024 06/22/2023 CKD HGB USE SMARTSET 50933 11/14/202411/14, 11/22/2022, 06/02/2022, Additional history exists CKD PHOS USE SMARTSET 18250 11/14/2024 03/0 03/2024, 02/22/2023, 11/22/2022, Additional history exists Diabetic Eye Exam 01/23/2025 01/24/2024, , 07/25/2021, Additional history exists O2 ASSESSMENT COMPLETED IN PAST YEAR FOR COPD 09/04/2025 09/04/2024 DTap/Tdap Vaccines (2 - Td or Tdap) 02/13/2027 02/13/2017, 09/27/2007 Pneumococcal Vaccine: 50+ Years Completed 09/30/2014, 05/11/2005 Zoster Vaccines Completed 06/05/2019, 02/08, 06/20/2007 VITAMIN D LEVEL ONCE IN A LIFETIME-USE SMARTSET# [id number] Completed 05/25/2020, 07/16/2018, 02/11/2018, Additional history exists [...] filedocumented as of this encounter Care Teams Extender Relationship Specialty Start Date End Date Shea Sanz III, MD [address] [place] [address] PCP - General 10/25/00 documented as of this encounter
--- OUTSIDE RECORDS SUMMARY | 2024-10-24 21:07 | External Medical Summary | Summary of Care ---
Author Name Unknown Organization [facility] Address [address] [place] [address] Phone [phone] Care Team Providers Care Nutrient Management Specialist Name Role Phone Ezequiel ROBBINS MD, Bandar Sims Primary Care Provider [phone] Reason for Visit * Reason Comments Rash Occurred a little ov er a month ago, bumps and lesions appearing over whole body she is unable to pick things up the caretetaker stated Encounter Details Date Type Department Care Team (Late st Contact Info) Description 09/24/2024 2:20 PM EST Office Visit Dermatology [address] [address] Surjit Kim MD 16 [place] [address] Bullous pemphigoid* Allergies Active Allergy Reactions Criticality Noted Date Comments Penicillins Rash 08/28/2000 documented as of this encounter (statuses as of 09/25/2024) Medications [facility] Oral Tablet Take 1 [...] enteric coated)Indicatio ns:Atherosclerot ic heart disease of [place] coronary artery without angina pectoris TAKE 1 [...] to be determined (HCC) 2.5 mg NEBULIZER [id number] 08/16/2018 Active documented as of this encounter (statuses as of 09/25/2024) Active Problems Problem Noted Date Diagnosed Date [...] nodule 05/07/2018 Tobacco use disorder 05/07/2018 Old [place] (myocardial infarction) 02/15/2018 Coronary artery disease invo lving [place] coronary artery of [place] heart without angina pectoris 02/15/2018 History of breast cancer 02/13/2017 CNH (chondrodermatitis nodularis helicis) 2013 Type 2 diabetes mellitus wit h hemoglobin A1c goal of less than 8.0% 12/16/2013 Overview (01/06/2016): ICD-10 update of inactive term DYSLIPIDEMIA, GOAL LDL BELOW 100 08/25/2009 Overview (08/25/2009): Per Lipid Taxonomy. GERD (gastroesophageal reflux disease) 2 documented as of this encounter (statuses as of 09/25/2024) Resolved Problems Problem Noted Date Diagnosed Date [...] as of this encounter (statuses as of 09/25/2024) Immunizations Name Administration Dates Next Due COVID-19 [...] as of this encounter Progress Notes * John Dunne MD - 09/25/2024 7:45 AM EST I have discussed the patient's management with the medical trainee and agree with the note. Please refer to the documented findings and plan of care. This patient's visit today consisted of an evaluation. I was present and confirmed the findings of the history and exam. Requests f-up [place] Hoping with pred taper adequate time for doxy/niacinamide to help control along with high potency topicals; In reserve, dupixent. Sister in law on phone during visit also John Dunne MD * Surjit Kim MD - 09/24/2024 5:27 [...] life. She is here today with a material distributor AGNES(sister in law) is also available via [...] mg 2.5 mg Nebulizer Resp Q6H Barbi Vargas CRNP 2.5 mg at 11/28/18 1538 Review of patient's allergies indicates: Allergen Reactions [...] under occlusion to hands today - discussed jail option for dupixent if fails current treatment plan Follow-up: 10-14 days Patient was seen and examined with Dr. Davis Kim MD 09/24/2024 5:27 PM documented in this encounter Plan of Treatment Upcoming Encounters Date Type Department Care Team (Late st Contact Info) Description 10/23/2024 5:20 PM EST Office Visit Family [facility] [address] Ericka Rankin PA-C [address] [facility] [place] [address] Health Maintenance Due Date Last Done Comments [...] Monitoring 06/22/2024 06/22/2023 CKD HGB USE SMARTSET 04900 11/14/202411/14, 11/22/2022, 06/02/2022, Additional history exists CKD PHOS USE SMARTSET 08393 11/14/2024 03/0 03/2024, 02/22/2023, 11/22/2022, Additional history exists Diabetic Eye Exam 01/23/2025 01/24/2024, , 07/25/2021, Additional history exists O2 ASSESSMENT COMPLETED IN PAST YEAR FOR COPD 09/04/2025 09/04/2024 DTap/Tdap Vaccines (2 - Td or Tdap) 02/13/2027 02/13/2017, 09/27/2007 Pneumococcal Vaccine: 50+ Years Completed 09/30/2014, 05/11/2005 Zoster Vaccines Completed 06/05/2019, 02/08, 06/20/2007 VITAMIN D LEVEL ONCE IN A LIFETIME-USE SMARTSET# [id number] Completed 05/25/2020, 07/16/2018, 02/11/2018, Additional history exists [...] Pemphigoid documented in this encounter Care Teams Nutrient Management Specialist Relationship Specialty Start Date End Date Bandar Nieves III, MD [address] [place] [address] PCP - General 10/25/00 documented as of this encounter
--- OUTSIDE RECORDS SUMMARY | 2024-10-24 21:07 | External Medical Summary | Summary of Care ---
Author Name Unknown Organization [facility] Address [address] [place] [address] Phone [phone] Care Team Providers Care Community Service Representative Name Role Phone Ezequiel ROBBINS MD, Bandar Sims Primary Care Provider [phone] Encounter Details Date Type Department Care Team (Late st Contact Info) Description 09/30/2024 Telephone Dermatology [facility] [address] [place] [address] Surjit Kim MD [address] [place] [address] Allergies Active Allergy Reactions Criticality Noted Date Comments Penicillins Rash 08/28/2000 documented as of this encounter (statuses as of 09/30/2024) Medications [facility] Oral Tablet Take 1 Tablet by [...] enteric coated)Indicati ons: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 Referral to pharmacist for: Pharmacist Co-management See [...] AM EST Office Visit Dermatology [place], [place] [address] [facility] [place], [place] [address] Jett Maurer MD [address] [facility] [place] [address] 10/23/2024 5:20 PM EST Office Visit Family Practice [facility] [place] 200 [facility] [place] [address] Ericka Rankin PA-C [address] [facility] [place] [address] Health Maintenance Due Date Last Done Comments [...] Monitoring 06/22/2024 06/22/2023 CKD HGB USE SMARTSET 01556 11/14/202411/14, 11/22/2022, 06/02/2022, Additional history exists CKD PHOS USE SMARTSET 37854 11/14/2024 03/0 03/2024, 02/22/2023, 11/22/2022, Additional history exists Diabetic Eye Exam 01/23/2025 01/24/2024, , 07/25/2021, Additional history exists O2 ASSESSMENT COMPLETED IN PAST YEAR FOR COPD 09/04/2025 09/04/2024 DTap/Tdap Vaccines (2 - Td or Tdap) 02/13/2027 02/13/2017, 09/27/2007 Pneumococcal Vaccine: 50+ Years Completed 09/30/2014, 05/11/2005 Zoster Vaccines Completed 06/05/2019, 02/08, 06/20/2007 VITAMIN D LEVEL ONCE IN A LIFETIME-USE SMARTSET# [id number] Completed 05/25/2020, 07/16/2018, 02/11/2018, Additional history exists [...] Pemphigoid documented in this encounter Care Teams Community Service Representative Relationship Specialty Start Date End Date Bandar Nieves III, MD 200 [place] [address] PCP - General 10/25/00 documented as of this encounter
--- OUTSIDE RECORDS SUMMARY | 2024-10-24 21:07 | External Medical Summary | Summary of Care ---
Author Name Unknown Organization [facility] Address [address] [place] [address] Phone [phone] Care Team Providers Care Net Developer Programmer Name Role Phone Ezequiel ROBBINS MD, Bandar Sims Primary Care Provider [phone] Reason for Visit * Reason Comments Rash Occurred a little ov er a month ago, bumps and lesions appearing over whole body she is unable to pick things up the caretetaker stated Encounter Details Date Type Department Care Team (Late st Contact Info) Description 09/24/2024 2:20 PM EST Office Visit Dermatology [facility] [address] [place] [address] Surjit Kim MD [address] [place], [place] [id number] Bullous pemphigoid* Allergies Active Allergy Reactions Criticality [...] enteric coated)Indicatio ns: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 She is here today with a bottling line operator AGNES(sister in law) is also available via [...] 2.5 mg Nebulizer Resp Q6H Barbi Vargas, COLLISION MECHANIC 2.5 mg at 11/28/18 8015 Review of patient's allergies indicates: Allergen Reactions [...] under occlusion to hands today - discussed long wall mining machine tender option for dupixent if fails current treatment plan Follow-up: 10-14 days Patient was seen and examined with Dr. Daivs Kim MD 09/24/2024 5:27 PM documented in this encounter Plan of Treatment Upcoming Encounters Date Type Department Care Team (Late st Contact Info) Description 10/23/2024 5:20 PM EST Office Visit Family Practice [facility] [place] [place] 200 [facility] [place] [address] Ericka Rankin PA-C 200 [facility] [place] [address] Health Maintenance Due Date Last Done Comments [...] Monitoring 06/22/2024 06/22/2023 CKD HGB USE SMARTSET 47941 11/14/202411/14, 11/22/2022, 06/02/2022, Additional history exists CKD PHOS USE SMARTSET 90124 11/14/2024 03/0 03/2024, 02/22/2023, 11/22/2022, Additional history exists Diabetic Eye Exam 01/23/2025 01/24/2024, , 07/25/2021, Additional history exists O2 ASSESSMENT COMPLETED IN PAST YEAR FOR COPD 09/04/2025 09/04/2024 DTap/Tdap Vaccines (2 - Td or Tdap) 02/13/2027 02/13/2017, 09/27/2007 Pneumococcal Vaccine: 50+ Years Completed 09/30/2014, 05/11/2005 Zoster Vaccines Completed 06/05/2019, 02/08, 06/20/2007 VITAMIN D LEVEL ONCE IN A LIFETIME-USE SMARTSET# [id number] Completed 05/25/2020, 07/16/2018, 02/11/2018, Additional history exists [...] Pemphigoid documented in this encounter Care Teams Net Developer Programmer Relationship Specialty Start Date End Date Bandar Nieves III, MD 200 [facility] [place] [address] PCP - General 10/25/00 documented as of this encounter
--- OUTSIDE RECORDS SUMMARY | 2024-10-24 21:07 | External Medical Summary | Summary of Care ---
Author Name Unknown Organization [facility] Address [address] [place] [address] Phone [phone] Care Team Providers Care Call Center Assistant Name Role Phone Ezequiel ROBBINS MD, Bandar Sims Primary Care Provider [phone] Reason for Visit * Reason Comments Rash Occurred a little ov er a month ago, bumps and lesions appearing over whole body she is unable to pick things up the caretetaker stated Encounter Details Date Type Department Care Team (Late st Contact Info) Description 09/24/2024 2:20 PM EST Office Visit Dermatology [facility] [address] [place] [address] Surjit Kim MD [address] [place], [place] [id number] Bullous pemphigoid* Allergies Active Allergy Reactions Criticality Noted Date Comments Penicillins Rash 08/28/2000 documented as of this encounter (statuses as of 09/30/2024) Medications [facility] Oral Tablet Take 1 [...] enteric coated)Indicati ons: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 Requests f-up [place] Hoping with pred taper adequate time for [...] life. She is here today with a new accounts representative AGNES(sister in law) is also available via [...] under occlusion to hands today - discussed halfway option for dupixent if fails current treatment plan Follow-up: 10-14 days Patient was seen and examined with Dr. Davis Kim MD 09/24/2024 5:27 PM documented in this encounter Plan of Treatment Upcoming Encounters Date Type Department Care Team (Late st Contact Info) Description 10/06/2024 10:30 AM EST Office Visit Dermatology [facility] 200 [facility] [place] [address] Jett Maurer MD 200 [facility] [place] [address] 10/23/2024 5:20 PM EST Office Visit Family Practice [facility] 200 [facility] [place] [address] Ericka Rankin PA-C 200 [facility] [place] [address] Health Maintenance Due Date Last Done Comments [...] Monitoring 06/22/2024 06/22/2023 CKD HGB USE SMARTSET 55820 11/14/202411/14, 11/22/2022, 06/02/2022, Additional history exists CKD PHOS USE SMARTSET 36634 11/14/2024 03/0 03/2024, 02/22/2023, 11/22/2022, Additional history exists Diabetic Eye Exam 01/23/2025 01/24/2024, , 07/25/2021, Additional history exists O2 ASSESSMENT COMPLETED IN PAST YEAR FOR COPD 09/04/2025 09/04/2024 DTap/Tdap Vaccines (2 - Td or Tdap) 02/13/2027 02/13/2017, 09/27/2007 Pneumococcal Vaccine: 50+ Years Completed 09/30/2014, 05/11/2005 Zoster Vaccines Completed 06/05/2019, 02/08, 06/20/2007 VITAMIN D LEVEL ONCE IN A LIFETIME-USE SMARTSET# 33903 Completed 05/25/2020, 07/16/2018, 02/11/2018, Additional history exists [...] Pemphigoid documented in this encounter Care Teams Call Center Assistant Relationship Specialty Start Date End Date Bandar Nieves III, MD 200 [facility] [place] [address] PCP - General 10/25/00 documented as of this encounter
--- OUTSIDE RECORDS SUMMARY | 2024-10-24 21:08 | External Medical Summary | Summary of Care ---
Author Name Unknown Organization [facility] Address [address] [place] [address] Phone [phone] Care Team Providers Care Trade Recruiter Name Role Phone Ezequiel ROBBINS MD, John E Primary Care Provider [phone] Reason for Visit * Reason Comments eRx-Medication Refill Encounter Details Date Type Department Care Team (Late st Contact Info) Description 09/17/2024 Refill General Internal Medicine [facility] [address] [place] [address] Bandar Nieves III, MD [address] [place] [address] Gastroesophageal reflux disease with esophagitis without hemorrhage Allergies Active Allergy Reactions Criticality Noted Date Comments Penicillins Rash 08/28/2000 documented as of this encounter (statuses as of 09/18/2024) Medications [facility] Oral Tablet Take 1 Tablet by mouth in the morning. 3 Active Stiolto Respimat 2.5-2.5 MCG/ACT Inhalation Aerosol Solution (Tiotropium-Olod aterol) Inhale 2 Puffs by mouth in the morning. 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 TAKE 1 TABLET BY MOUTH ONCE DAILY IN THE MORNING 30 Tablet 5 4 Active ALPRAZolam 0.25 MG Oral Tablet (xaNAX)Indicatio ns:Anxiety state TAKE ONE TABLET BY MOUTH IN THE MORNING AND ONE TABLET AT BEDTIME NEEDED FOR ANXIETY 30 Tablet 4 Active Gabapentin 100 MG Oral Capsule (Neurontin) TAKE 1 CAPSULE BY MOUTH ONCE DAILY AT BEDTIME 30 Capsule 5 4 Active PreserVision AREDS Oral Capsule TAKE 1 CAPSULE BY MOUTH ONCE DAILY IN THE MORNING 30 Capsule 5 4 Active predniSONE 10 MG Oral Tablet (Deltasone) Take 5 tabs for 2 days, 4 tabs for 2 days, 3 tabs for 2 days, 2 tabs for 2 days 1 tab for 2 days 30 Tablet 4 Active Additional Information Patient not taking.Reported on 09/17/2024 Famotidine 20 MG Oral Tablet (Pepcid) Take [...] 2-4 weeks 454 g 1 5 Active Hospital, Clinic, or Other Facility Administered Medication Ordered Dose Route Frequency Start Date End Date Status albuterol sulfate (PROVENTIL) (2.5 MG/3ML) 0.083% inhalation solution 2.5 mgIndications:COPD, severity to be determined (HCC) 2.5 mg NEBULIZER [id number] 08/16/2018 Active documented as of this encounter (statuses as of 09/18/2024) Active Problems Problem Noted Date Diagnosed Date [...] nodule 05/07/2018 Tobacco use disorder 05/07/2018 Old [place] (myocardial infarction) 02/15/2018 Coronary artery disease invo [...] as of this encounter (statuses as of 09/18/2024) Resolved Problems Problem Noted Date Diagnosed Date [...] as of this encounter (statuses as of 09/18/2024) Immunizations Name Administration Dates Next Due COVID-19 mRNA, LNP-s, No Pre serve, 2-Dose Series ([place]) 09/12/2021,01/29/2021,01/08/2021 Pneumococcal Conjugate Vacc, 13 Valent (Prevnar) [...] encounter Miscellaneous Notes * Telephone Encounter - Asia Reynoso [facility] - 09/18/2024 12:04 PM ESTRefused Prescriptions: Disp Refills Omeprazole 40 MG Oral Capsule Delayed Rele*180 Ca*11 Sig: TAKE 1 CAPSULE BY MOUTH IN THE MORNING AND AT BEDTIMERefused By: ASIA REYNOSOason for Refusal: Too s oon documented in this encounter Plan of Treatment Upcoming Encounters Date Type Department Care Team (Late st Contact Info) Description 10/23/2024 5:20 PM EST Office Visit Family Practice [facility] 200 [facility] [place] [address] Ericka Rankin PA-C 200 [place] [address] Health Maintenance Due Date Last Done Comments [...] Monitoring 06/22/2024 06/22/2023 CKD HGB USE SMARTSET 65381 11/14/202411/14, 11/22/2022, 06/02/2022, Additional history exists CKD PHOS USE SMARTSET 94176 11/14/2024 03/0 03/2024, 02/22/2023, 11/22/2022, Additional history exists Diabetic Eye Exam 01/23/2025 01/24/2024, , 07/25/2021, Additional history exists O2 ASSESSMENT COMPLETED IN PAST YEAR FOR COPD 09/04/2025 09/04/2024 DTap/Tdap Vaccines (2 - Td or Tdap) 02/13/2027 02/13/2017, 09/27/2007 Pneumococcal Vaccine: 50+ Years Completed 09/30/2014, 05/11/2005 Zoster Vaccines Completed 06/05/2019, 02/08, 06/20/2007 VITAMIN D LEVEL ONCE IN A LIFETIME-USE SMARTSET# [id number] Completed 05/25/2020, 07/16/2018, 02/11/2018, Additional history exists [...] as of this encounter Visit Diagnoses Diagnosis Gastroesophageal reflux disease with esophagitis without hemorrhage documented in this encounter Care Teams Trade Recruiter Relationship Specialty Start Date End Date Bandar Nieves III, MD [address] [place], [place] [address] PCP - General 10/25/00 documented as of this encounter
--- OUTSIDE RECORDS SUMMARY | 2024-10-24 21:08 | External Medical Summary | Summary of Care ---
Author Name Unknown Organization [facility] Address [address] [place] [address] Phone [phone] Care Team Providers Care Powerhouse Mechanic Name Role Phone Ezequiel ROBBINS MD, Bandar Sims Primary Care Provider [phone] Encounter Details Date Type Department Care Team (Late st Contact Info) Description 09/21/2024 Telephone Dermatology [facility] [address] [place] [address] Jett Maurer MD [address] [place] [address] Allergies Active Allergy Reactions Criticality Noted Date Comments Penicillins Rash 08/28/2000 documented as of this encounter (statuses as of 09/21/2024) Medications [facility] Oral Tablet Take 1 Tablet by mouth [...] enteric coated)Indicati ons: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 TAKE 1 [...] for 3 days 18 Tablet 5 Active predniSONE 10 MG Oral Tablet (Deltasone) Take 5 tabs for 2 days, 4 tabs for 2 days, 3 tabs for 2 days, 2 tabs for 2 days 1 tab for 2 days 30 Tablet 4 025 Discontinued Hospital, Clinic, or Other Facility Administered Medication Ordered Dose Route Frequency Start Date End Date Status albuterol sulfate (PROVENTIL) (2.5 MG/3ML) 0.083% inhalation solution 2.5 mgIndications:COPD, severity to be determined (HCC) 2.5 mg NEBULIZER [id number] 08/16/2018 Active documented as of this encounter (statuses as of 09/21/2024) Active Problems Problem Noted Date Diagnosed Date [...] nodule 05/07/2018 Tobacco use disorder 05/07/2018 Old [place] (myocardial infarction) 02/15/2018 Coronary artery disease invo lving [place] coronary artery of [place] heart without angina pectoris 02/15/2018 History of breast cancer 02/13/2017 CNH (chondrodermatitis nodularis helicis) 2013 Type 2 diabetes mellitus wit h hemoglobin A1c goal of less than 8.0% 12/16/2013 Overview (01/06/2016): ICD-10 update of inactive term DYSLIPIDEMIA, GOAL LDL BELOW 100 08/25/2009 Overview (08/25/2009): Per Lipid Taxonomy. GERD (gastroesophageal reflux disease) 2 documented as of this encounter (statuses as of 09/21/2024) Resolved Problems Problem Noted Date Diagnosed Date [...] as of this encounter (statuses as of 09/21/2024) Immunizations Name Administration Dates Next Due COVID-19 [...] Telephone Encounter - Jett Maurer MD - 09/21/2024 1:25 PM EST Weekend call to discuss pathology report from patient's POA Lucy Agudelo. Discussed BP and typical treatment. Patient increasingly uncomfortable and topical steroids not helping. Will send script for additional prednisone taper and oral doxycyline 100mg bid with instructions to take with food. Both will be short courses, with further treatment decided by her care team I recommended that they discuss further care with Yenifer when she is back in the office documented in this encounter Plan of Treatment Upcoming Encounters Date Type Department Care Team (Late st Contact Info) Description 10/23/2024 5:20 PM EST Office Visit Family Practice [facility] 200 [facility] [place] [address] Massiel Ericka EDITA Trevino 200 [facility] [place] [address] Health Maintenance Due Date Last Done Comments Adult Wellness Visit 2005 DXA Scan 02/08/2017 02/08/2015, 01/10, 02/07/2012, Additional history exists Diabetic Foot Exam 07/30/2021 07/30/2020, 0 10/30/2019, 01/17/2019, Additional history exists *BISPHONATE OR OTHER ACCEPTABLE MEDICATION NEEDED FOR OSTEOPOROSIS (REFER TO SMARTSET #1146) 02/25/2023 Albumin/Creatinine Ratio 02/27/2024 023, 11/17/2019, 01/17/2019, Additional history exists COVID-19 Vaccine (4 - 2024-25 season) 2024 09/12/2021, 01/29/2021, 01/08/2021 Influenza Vaccine (FLU shot) (#1) 2024 06/22/2023, 06/02/2022, 06/16/2021, Additional history exists HbA1c 05/17/2024 11/15/2023, 02/08, 11/22/2022, Additional history exists Depression Monitoring 06/22/2024 06/22/2023 CKD HGB USE SMARTSET 14805 11/14/202411/14, 11/22/2022, 06/02/2022, Additional history exists CKD PHOS USE SMARTSET 98687 11/14/2024 03/0 03/2024, 02/22/2023, 11/22/2022, Additional history exists Diabetic Eye Exam 01/23/2025 01/24/2024, , 07/25/2021, Additional history exists O2 ASSESSMENT COMPLETED IN PAST YEAR FOR COPD 09/04/2025 09/04/2024 DTap/Tdap Vaccines (2 - Td or Tdap) 02/13/2027 02/13/2017, 09/27/2007 Pneumococcal Vaccine: 50+ Years Completed 09/30/2014, 05/11/2005 Zoster Vaccines Completed 06/05/2019, 02/08, 06/20/2007 VITAMIN D LEVEL ONCE IN A LIFETIME-USE SMARTSET# [id number] Completed 05/25/2020, 07/16/2018, 02/11/2018, Additional history exists [...] eruption documented in this encounter Care Teams Powerhouse Mechanic Relationship Specialty Start Date End Date Bandar Nieves III, MD [address] [place] [address] PCP - General 10/25/00 documented as of this encounter
--- OUTSIDE RECORDS SUMMARY | 2024-10-24 21:08 | External Medical Summary | Summary of Care ---
Author Name Unknown Organization [facility] Address [address] [place] [address] Phone [phone] Care Team Providers Care Contact Center Engineer Name Role Phone Ezequiel ROBBINS MD, Bandar Sims Primary Care Provider [phone] Encounter Details Date Type Department Care Team (Late st Contact Info) Description 09/21/2024 Telephone Dermatology [facility] [address] [place] [address] Jett Maurer MD [address] [place] [address] Allergies Active Allergy Reactions Criticality Noted Date Comments Penicillins Rash 08/28/2000 documented as of this encounter (statuses as of 09/22/2024) Medications [facility] Oral Tablet [...] enteric coated)Indicati ons: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 TAKE 1 [...] to be determined (HCC) 2.5 mg NEBULIZER [id number] 08/16/2018 Active documented as of this encounter (statuses as of 09/22/2024) Active Problems Problem Noted Date Diagnosed Date [...] nodule 05/07/2018 Tobacco use disorder 05/07/2018 Old [place] (myocardial infarction) 02/15/2018 Coronary artery disease invo lving [place] coronary artery of [place] heart without angina pectoris 02/15/2018 History of breast cancer 02/13/2017 CNH (chondrodermatitis nodularis helicis) 2013 Type 2 diabetes mellitus wit h hemoglobin A1c goal of less than 8.0% 12/16/2013 Overview (01/06/2016): ICD-10 update of inactive term DYSLIPIDEMIA, GOAL LDL BELOW 100 08/25/2009 Overview (08/25/2009): Per Lipid Taxonomy. GERD (gastroesophageal reflux disease) 2 documented as of this encounter (statuses as of 09/22/2024) Resolved Problems Problem Noted Date Diagnosed Date [...] as of this encounter (statuses as of 09/22/2024) Immunizations Name Administration Dates Next Due COVID-19 [...] encounter Miscellaneous Notes * Telephone Encounter - Yenifer Duran PA-C - 09/22/2024 9:06 AM EST Thanks so much Benjamin. Will follow up with them today. Yenifer Duran PA-C 09/22/2024 9:06 AM * Telephone Encounter - Jett Maurer MD [...] State [facility] [address] [place] [address] Ericka Rankin PA-C [address] [place] [address] Health Maintenance Due Date Last Done Comments [...] Monitoring 06/22/2024 06/22/2023 CKD HGB USE SMARTSET 05130 11/14/202411/14, 11/22/2022, 06/02/2022, Additional history exists CKD PHOS USE SMARTSET 37865 11/14/2024 03/0 03/2024, 02/22/2023, 11/22/2022, Additional history exists Diabetic Eye Exam 01/23/2025 01/24/2024, , 07/25/2021, Additional history exists O2 ASSESSMENT COMPLETED IN PAST YEAR FOR COPD 09/04/2025 09/04/2024 DTap/Tdap Vaccines (2 - Td or Tdap) 02/13/2027 02/13/2017, 09/27/2007 Pneumococcal Vaccine: 50+ Years Completed 09/30/2014, 05/11/2005 Zoster Vaccines Completed 06/05/2019, 02/08, 06/20/2007 VITAMIN D LEVEL ONCE IN A LIFETIME-USE SMARTSET# [id number] Completed 05/25/2020, 07/16/2018, 02/11/2018, Additional history exists [...] eruption documented in this encounter Care Teams Contact Center Engineer Relationship Specialty Start Date End Date Bandar Nieves III, MD [address] [facility] [place] [address] PCP - General 10/25/00 documented as of this encounter
--- OUTSIDE RECORDS SUMMARY | 2024-10-24 21:08 | External Medical Summary | Summary of Care ---
Author Name Unknown Organization [facility] Address [address] [place] [address] Phone [phone] Care Team Providers Care Tool Planer Set Up Operator Name Role Phone Ezequiel ROBBINS MD, Bandar Sims Primary Care Provider [phone] Reason for Visit * Reason Comments NEW PATIENT Itchy rash on body f or about 4 weeks. Tried Vitamin A&D. Also took a 5 day course of Prednisone and takes Benadryl at night but ran out. Nothing is helping. * Evaluate & Treat - Unlimited Visits (Within 30 days (routine)) - Authorized Specialty Diagnoses / Procedures Referred By Memo rod Referred To Contact Dermatology Diagnoses Rash and nonspecific skin eruption Flaco Ash, DO [address] [place] [address] Phone: tel: fax: Referral ID Status Reason Start Date Expiration Date Visits Requested Visits Authorized [id number] Authorized Specialty Services Required [phone] Encounter Details Date Type Department Care Team (Late st Contact Info) Description 09/17/2024 1:10 PM EST Office Visit Dermatology, [facility] [address] [place] [address] Yenifer Duran PA-C [address] [id number] Rash and nonspecific skin eruption* Allergies Active Allergy Reactions Criticality Noted Date Comments Penicillins Rash 08/28/2000 documented as of this encounter (statuses as of 09/17/2024) Medications Reese Senior Oral Tablet Take 1 Tablet by [...] enteric coated)Indicatio ns:Atherosclerot ic heart disease of [place] coronary artery without angina pectoris TAKE 1 [...] to be determined (HCC) 2.5 mg NEBULIZER [id number] 08/16/2018 Active documented as of this encounter (statuses as of 09/17/2024) Active Problems Problem Noted Date Diagnosed Date [...] nodule 05/07/2018 Tobacco use disorder 05/07/2018 Old [place] (myocardial infarction) 02/15/2018 Coronary artery disease invo lving [place] coronary artery of [place] heart without angina pectoris 02/15/2018 History of breast cancer 02/13/2017 CNH (chondrodermatitis nodularis helicis) 2013 Type 2 diabetes mellitus wit h hemoglobin A1c goal of less than 8.0% 12/16/2013 Overview (01/06/2016): ICD-10 update of inactive term DYSLIPIDEMIA, GOAL LDL BELOW 100 08/25/2009 Overview (08/25/2009): Per Lipid Taxonomy. GERD (gastroesophageal reflux disease) 2 documented as of this encounter (statuses as of 09/17/2024) Resolved Problems Problem Noted Date Diagnosed Date [...] as of this encounter (statuses as of 09/17/2024) Immunizations Name Administration Dates Next Due COVID-19 [...] as of this encounter Progress Notes * Yenifer Duran PA-C - 09/17/2024 1:06 PM EST SUBJECTIVE: CC: Itchy rash on body for about 4 weeks. Tried Vitamin A&D. Also took a 5 day course of Prednisone and takes Benadryl at night but ran out. Nothing is helping. HPI: Alexandra Agudelo is a 84 year old female seen at the request of Flaco Ash DO for evaluationand treatment of rash. Rash on chest, upper back, scalp, arms and bilateral palms with blisters (see photos scanned into media tab from PCP). Started about a month ago. Very itchy. Denies any changes to medication or products. Went to Urgent Care and given prednisone x 5 days which helped some. Saw PCP 09/04/2024 who gave Zyrtec, famotidine and prednisone taper. Also taking benadryl at night. Prednisone did help. No hxof rashes in the past. Right now using A&D ointment on rash. Ask A Doc Dr. Tanner 09/05/2024 recommended bx to r/o immunobullous disease. REVIEW OF SYSTEMS: See HPI- all other findings negative Constitutional: (-) fever, chills, sweats, weight loss Cardiovascular: (-) lower extremity edema Skin: (-) no rash or new or changing moles or skin lesions Past Medical History: Diagnosis Date Atypical ductal hyperplasia of breast 2006 Benign neoplasm of colon 10/29/07 polyp x 5--adenomatous polyps--repeat 5 years Breast cancer ([facility]) 2005 Left Breast Cancer - Dr. Russell Bronchiectasis ([facility]) CKD (chronic kidney disease) stage 3, GFR 30-59 ml/min ([facility]) 01/20/2016 COPD (chronic obstructive pulmonary disease) ([facility]) Coronary artery disease involving [place] coronary artery of [place] heart without angina pectoris 02/15/2018 Depressive disorder, not elsewhere classified Diabetic eye exam ([facility]) 08/05/12 no retinopathy DM type 2, not at goal ([facility]) Dyslipidemia, goal to be determined GERD (gastroesophageal reflux disease) 07/30/2002 Lung nodule Malignant neoplasm of other specified sites of female breast left Menopause Old NH (myocardial infarction) 02/15/2018 Other psoriasis Panic disorder Sleep apnea, obstructive Patien t Active Problem List Diagnosis GERD (gastroesophageal reflux disease) DYSLIPIDEMIA, GOAL LDL BELOW 100 Type 2 diabetes mellitus with hemoglobin A1c goal of less than 8.0% ([facility]) CNH (chondrodermatitis nodularis helicis) History of breast cancer Old [place] (myocardial infarction) Coronary artery disease involving [place] coronary artery of [place] heart without angina pectoris Lung nodule Tobacco use disorder Hypersomnolence Diabetes mellitus with stage 3 chronic kidney disease ([facility]) Centrilobular emphysema ([facility]) RLS (restless legs syndrome) SILVIA (obstructive sleep apnea) Anxiety state Bronchiectasis without complication ([facility]) Hyperparathyroidism, secondary renal ([facility]) COPD, group B, by GOLD 2017 classification ([facility]) Exudative age-related macular degeneration of left eye with active choroidal neovascularization ([facility]) DDD (degenerative disc disease), lumbar Age-related osteoporosis without current pathological fracture Major depressive disorder, single episode, moderate ([facility]) Stage 3b chronic kidney disease ([facility]) SOCIAL HISTORY: Social History Tobacco Use Smoking status: Former Current packs/day: 0.00 Average packs/day: 1 pack/day for 51.0 years (51.0 ttl pk-yrs) Types: Cigarettes Start date: 02/08/1971 Quit date: 02/08/2022 Years since quittin.6 Smokeless tobacco: Never Tobacco comments: 02/04/21 currently smoking 10 cig/day Substance Use Topics Alcohol use: No Vaping/E-Cigarette Use Vaping/E-Cigarette Use Never User Passive Exposure No Counseling Given? No Vaping/E-Cigarette Substances Nicotine No Other No Flavoring No THC No Cannabidiol (CBD) No Vaping/E-Cigarette Devices Disposable No Pre-filled or Refillable Cartridge No Refillable Tank No Pre-filled Pod No MEDICA TIONS: Current Outpatient Medications Medication Sig Dispense Refill Sentry Senior Oral Tablet Take 1 Tablet by mouth in the morning. Stiolto Respimat 2.5-2.5 MCG/ACT Inhalation Aerosol Solution (Tiotropium- Olodaterol) Inhale 2 Puffsby mouth in the morning. 4 g 11 B-12 1000 MCG Oral Tablet TAKE TWO TABLETS BY MOUTH 8AM 60 Tablet 11 Meclizine HCl 12.5 MG Oral Tablet [...] DAILY IN THE MORNING 30 Tablet 5 ALPRAZolam 0.25 MG Oral Tablet (xaNAX) TAKE ONE TABLET BY MOUTH IN THE MORNING AND ONE TABLET AT BEDTIME NEEDED FOR ANXIETY 30 Tablet 0 Gabapentin 100 MG Oral Capsule (Neurontin) TAKE [...] and 1 Tablet beforebedtime. 60 Tablet 0 diphenhydrAMINE HCl 25 MG Oral Tablet (Benadryl Allergy) Take 1 Tablet by mouth at bedtime as needed for Itching. predniSONE 10 MG Oral Tablet (Deltasone) Take 5 tabs for 2 days, 4 tabs for 2 days, 3 tabs for 2 days, 2 tabs for 2 days 1 tab for 2 days (Patient not taking: Reported on 09/17/2024) 30 Tablet 0 Current Facility-Administered Medications Medication Dose Route Frequency Provider Last Rate Last Admin albuterol sulfate (PROVENTIL) (2.5 MG/3ML) 0.083% inhalation solution 2.5 mg 2.5 mg Nebulizer Resp Q6H LaniBarbi patton CRNP 2.5 mg at 11/28/18 1538 ALLERG IES: Penicillins OBJECTIVE: GEN: Healthy, alert, no distress, appears oriented, pleasant, and cooperative. PSYCH: Appropriate mood and affect, alert SKIN: Detailed exam of trunk, bilateral upper extremities was completed and are within normal limits with the following exceptions: 1. Edematous pink papules and plaques with firm vesicles and bulla on chest, back, arms, palms, buttock ASSESS MENT/PLAN: Immunobullous favor BP -Recommended punch for H&E and DIF. Patient agreeable. -Biopsy of the lesion noted above to establish and confirm diagnosis. Biopsy by 4 mm punch was recommended which the patient was agreeable to. The procedure, risks, benefits, indications, alternatives, and complications were discussed with the patient and informed consent was obtained. Specifically, the expectation of a permanent scar and risk of possible infection were explained to the patient and understood. Time out called. Patient identified, procedure verified, site identified and verified. Patient and staff present in agreement. Area prepped with alcohol and anesthetized with 2.5 mL of 0.5% lidocaine with epinephrine. Biopsy via 4 mm punch was performed. Hemostasis was obtained with pressure and gel foam. Petrolatum and bandage were applied. The patient tolerated the procedure well without complications and with minimal blood loss. Patient instructed in routine post-op care. Specimen(s) sent to pathology. We will call with biopsy results and arrange appropriate follow-up care as indicated. -Second punch biopsy of perilesional bulla obtained for DIF -Begin triamcinolone ointment BID until results available. Patient with aide today. Follow-up: pending results Photos taken 1-5, patient consented to photos. Contact patient via [employer] Patient Phone Numbers Applicable photos (if any) and chart reviewed by Dr. Ge Nixon The patient was encouraged to contact me with any further questions or concerns. Yenifer Duran PA-C 09/17/2024 1:06 PM REF: FLACO ASH [address] [facility] [place] [address] (office) [phone] (fax) documented in this encounter Nursing Notes * Sierra Corbett LPN - 09/17/2024 12:56 PM EST Chief Complaint Patient presents with NEW PATIENT Itchy rash on body for about 4 weeks. Tried Vitamin A&D. Also took a 5 day course of Prednisoneand takes Benadryl at night but ran out. Nothing is helping. Caregiver present in room. documented in this encounter Plan of Treatment Upcoming Encounters Date Type Department Care Team (Late st Contact Info) Description 10/23/2024 5:20 PM EST Office Visit [facility] [place] [address] [facility] [place] [address] Ericka Rankin EDITA [address] [place], [place] [address] Pending Results Name Type Priority Associated Diagnoses Date /Time SURGICAL PATHOLOGY Pathology Routine Rash and nonspecific skin eruption 09/17/2024 1:38 PM EST Health Maintenance Due Date Last Done [...] Monitoring 06/22/2024 06/22/2023 CKD HGB USE SMARTSET 61609 11/14/202411/14, 11/22/2022, 06/02/2022, Additional history exists CKD PHOS USE SMARTSET 97668 11/14/2024 03/0 03/2024, 02/22/2023, 11/22/2022, Additional history exists Diabetic Eye Exam 01/23/2025 01/24/2024, , 07/25/2021, Additional history exists O2 ASSESSMENT COMPLETED IN PAST YEAR FOR COPD 09/04/2025 09/04/2024 DTap/Tdap Vaccines (2 - Td or Tdap) 02/13/2027 02/13/2017, 09/27/2007 Pneumococcal Vaccine: 50+ Years Completed 09/30/2014, 05/11/2005 Zoster Vaccines Completed 06/05/2019, 02/08, 06/20/2007 VITAMIN D LEVEL ONCE IN A LIFETIME-USE SMARTSET# [id number] Completed 05/25/2020, 07/16/2018, 02/11/2018, Additional history exists [...] Procedure Name Priority Date/Time Associated Diagnosis Comments DERM EXAM - DERM (IMAGES ONLY, NO REPORT) Routine 09/17/2024 1:42 PM EST Rash and nonspecific skin eruption documented in this encounter Results * DERM EXAM - DERM (IMAGES ONLY, NO REPORT) (09/17/2024 1:42 PM EST) Narrative Scheduling, Silent - 09/17/2024 1:42 PM EST This is an imaging study not interpreted or resulted by a [employer] or [employer] contracted radiologist. Yenifer Duran PA-C RADIOLOGY (RAD GENERAL) Final Result documented in this encounter Visit Diagnoses Diagnosis Rash and nonspecific skin eruption- Primary Rash and other nonspecific skin eruption documented in this encounter Care Teams Tool Planer Set Up Operator Relationship Specialty Start Date End Date Bandar Nieves III, MD [address] [facility] [place] [address] PCP - General 10/25/00 documented as of this encounter
--- OUTSIDE RECORDS SUMMARY | 2024-10-24 21:08 | External Medical Summary | Summary of Care ---
Author Name Unknown Organization [facility] Address [address] [place] [address] Phone [phone] Care Team Providers Care Warp Placer Name Role Phone Ezequiel ROBBINS MD, John E Primary Care Provider [phone] Reason for Visit * Reason Comments eRx-Medication Refill Encounter Details Date Type Department Care Team (Late st Contact Info) Description 07/23/2024 Refill Family Practice [facility] [address] [place] [address] Shea Sanz III, MD [address] [place] [address] Anxiety state Allergies Active Allergy Reactions Criticality Noted Date Comments Penicillins Rash 08/28/2000 documented as of this encounter (statuses as of 07/25/2024) Medications [facility] Oral Tablet Take 1 Tablet [...] for Dizziness. 30 Tablet 1 4 Active busPIRone HCl 10 MG Oral Tablet (Buspar)Indicat ions:Anxiety state TAKE 1 TABLET BY MOUTH IN THE MORNING AND AT BEDTIME 60 Tablet 5 4 Active D3 High Potency 50 MCG (2000 UT) Oral Capsule (Cholecalcifero l) TAKE 1 CAPSULE BY MOUTH ONCE DAILY IN THE MORNING 30 Capsule 5 4 Active Mirtazapine 15 MG Oral Tablet (Remeron)Indica tions:Major depressive disorder, single episode, moderate (HCC) TAKE 1 AND 1/2 TABLET BY MOUTH AT BEDTIME 45 Tablet 5 4 Active Aspirin Low Dose 81 MG Oral Tablet Delayed Release (aspirin enteric coated)Indicati ons:Atheroscler otic heart disease of [place] coronary artery without angina pectoris TAKE 1 TABLET BY MOUTH ONCE DAILY IN THE MORNING 30 Tablet 5 4 Active Ferrous Sulfate 325 (65 Fe) MG Oral Tablet (Feosol) TAKE 1 TABLET BY MOUTH IN THE MORNING AND AT BEDTIME 60 Tablet 5 4 Active PreserVision AREDS 2 Oral Capsule TAKE 1 CAPSULE BY MOUTH ONCE DAILY IN THE MORNING 30 Capsule 5 4 Active traZODone HCl 50 MG Oral Tablet (Desyrel)Indica tions:Major depressive disorder, single episode, moderate (HCC) TAKE 1/2 TABLET BY MOUTH AT BEDTIME 15 Tablet 5 4 Active Gabapentin 100 MG Oral Capsule (Neurontin) TAKE 1 CAPSULE BY MOUTH ONCE DAILY AT BEDTIME 30 Capsule 5 4 Active Omeprazole 40 MG Oral Capsule [...] HOURS LATER 120 Tablet 5 4 Active ALPRAZolam 0.25 MG Oral Tablet (xaNAX)Indicati ons:Anxiety state TAKE ONE TABLET BY MOUTH IN THE MORNING AND ONE TABLET AT BEDTIME NEEDED FOR ANXIETY 30 Tablet 4 Active ALPRAZolam 0.25 MG Oral Tablet (xaNAX)Indicati ons:Anxiety state TAKE ONE TABLET BY MOUTH IN THE MORNING AND ONE TABLET AT BEDTIME NEEDED FOR ANXIETY 30 Tablet 4 024 Discontinued Hospital, Clinic, or Other Facility Administered Medication Ordered Dose Route Frequency Start Date End Date Status albuterol sulfate (PROVENTIL) (2.5 MG/3ML) 0.083% inhalation solution 2.5 mgIndications:COPD, severity to be determined (HCC) 2.5 mg NEBULIZER [id number] 08/16/2018 Active documented as of this encounter (statuses as of 07/25/2024) Active Problems Problem Noted Date Diagnosed Date [...] nodule 05/07/2018 Tobacco use disorder 05/07/2018 Old [place] (myocardial infarction) 02/15/2018 Coronary artery disease invo lving [place] coronary artery of [place] heart without angina pectoris 02/15/2018 History of breast cancer 02/13/2017 CNH (chondrodermatitis nodularis helicis) 2013 Type 2 diabetes mellitus wit h hemoglobin A1c goal of less than 8.0% 12/16/2013 Overview (01/06/2016): ICD-10 update of inactive term DYSLIPIDEMIA, GOAL LDL BELOW 100 08/25/2009 Overview (08/25/2009): Per Lipid Taxonomy. GERD (gastroesophageal reflux disease) 2 documented as of this encounter (statuses as of 07/25/2024) Resolved Problems Problem Noted Date Diagnosed Date [...] as of this encounter (statuses as of 07/25/2024) Immunizations Name Administration Dates Next Due COVID-19 mRNA, LNP-s, No Pre serve, 2-Dose Series ([employer]) 09/12/2021,01/29/2021,01/08/2021 Pneumococcal Conjugate Vacc, 13 Valent (Prevnar) [...] Encounter - Shea Sanz III, MD - 07/25/2024 10:46 AM ESTSigned Prescriptions: Disp Refills ALPRAZolam 0.25 MG Oral Tablet (xaNAX) 30 Tab*0 Sig: TAKE ONE TABLET BY MOUTH IN THE MORNING AND ONE TABLET AT BEDTIME NEEDED FOR ANXIETYAuthorizing Provider: SHEA SANZ III * Telephone Encounter - Nataly Mcgrath [facility] - 07/25/2024 9:34 AM ESTPending Prescriptions: Disp Refills ALPRAZolam 0.25 MG Oral Tablet [Pharmacy M*30 Tab*0 Sig: TAKE ONE TABLET BY MOUTH IN THE MORNING AND ONE TABLET AT BEDTIME NEEDED FOR ANXIETY * Telephone Encounter - Nataly Mcgrath [facility] - 07/25/2024 9:34 AM EST I have reviewed the patients controlled substance dispensing history in the Prescription Drug Monitoring Program in compliance with the [facility] regulations before prescribing a controlled substance. PDMP checked on 07/25/2024. Pending Prescriptions: Disp Refills ALPRAZolam 0.25 MG Oral Tablet (xaNAX) [P*30 Tab*0 Sig: TAKE ONE TABLET BY MOUTH IN THE MORNING AND ONE TABLET AT BEDTIME NEEDED FOR ANXIETY Last Visit: 11/15/2023 (in office), 09/16/2020 (telemedicine) Next Visit: Visit date not found Date medication was last filled: 06/27/24 Date medication is due for refill: 07/11/24 Pharmacy: [facility] [address] Is this request for a controlled substance? Yes and Urine Drug Screen Not completed Toxicology results: No results found. However, due to the size of the patient record, not all encounters were searched.Please check Results Review for a complete set of results. Please approve if appropriate. Thanks, Nataly Mcgrath, PharmD Clinical Pharmacist [facility] [phone] 07/25/2024 9:34 AM documented in this encounter Plan of Treatment Upcoming Encounters Date Type Department Care Team (Late st Contact Info) Description 08/11/2024 1:30 PM EST Office Visit Ophthalmology, [facility] [address] [place] [address] Alexx Melgoza DO [address] [place] [address] Health Maintenance Due Date Last Done Comments [...] 2024 06/22/2023, 06/02/2022, 06/16/2021, Additional history exists GFR 05/17/2024 11/15/2023, 02/08, 11/22/2022, Additional history exists HbA1c 05/17/2024 11/15/2023, 02/08, 11/22/2022, Additional history exists Depression Monitoring 06/22/2024 06/22/2023 CKD HGB USE SMARTSET 34790 11/14/202411/14, 11/22/2022, 06/02/2022, Additional history exists CKD PHOS USE SMARTSET 25062 11/14/2024 03/0 03/2024, 02/22/2023, 11/22/2022, Additional history exists O2 ASSESSMENT COMPLETED IN PAST YEAR FOR COPD 11/14/2024 11/15/2023 Diabetic Eye Exam 01/23/2025 01/24/2024, , 07/25/2021, Additional history exists DTap/Tdap Vaccines (2 - Td or Tdap) 02/13/2027 02/13/2017, 09/27/2007 Pneumococcal Vaccine: 65+ Years Completed 09/30/2014, 05/11/2005 Zoster Vaccines Completed 06/05/2019, 02/08, 06/20/2007 VITAMIN D LEVEL ONCE IN A LIFETIME-USE SMARTSET# [id number] Completed 05/25/2020, 07/16/2018, 02/11/2018, Additional history exists [...] as of this encounter Visit Diagnoses Diagnosis Anxiety state Anxiety state, unspecified documented in this encounter Care Teams Warp Placer Relationship Specialty Start Date End Date Shea Sanz III, MD [address] [place] [address] PCP - General 10/25/00 documented as of this encounter
--- OUTSIDE RECORDS SUMMARY | 2024-10-24 21:08 | External Medical Summary | Summary of Care ---
Author Name Unknown Organization [facility] Address [address] [place] [address] Phone [phone] Care Team Providers Care Gimp Buttonhole Machine Operator Name Role Phone Ezequiel ROBBINS MD, Shea Sims Primary Care Provider [phone] Reason for Visit * Reason Comments eRx-Medication Refill Encounter Details Date Type Department Care Team (Late st Contact Info) Description 08/21/2024 Refill General Internal Medicine [facility] [address] [place] [address] Ericka Rankin PA-C [address] [place] [address] Major depressive disorder, single episode, moderate (HCC); Anxiety state; 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 Allergies Active Allergy Reactions Criticality Noted Date Comments Penicillins Rash 08/28/2000 documented as of this encounter (statuses as of 08/23/2024) Medications [facility] Oral Tablet Take 1 [...] enteric coated)Indicati ons:Atheroscler otic heart disease of b[place] coronary artery without angina pectoris TAKE 1 TABLET BY MOUTH ONCE DAILY IN THE MORNING 30 Tablet 5 4 Active Gabapentin 100 MG Oral Capsule (Neurontin) TAKE 1 CAPSULE BY MOUTH ONCE DAILY AT BEDTIME 30 Capsule 5 4 Active PreserVision AREDS Oral Capsule TAKE 1 CAPSULE BY MOUTH ONCE DAILY IN THE MORNING 30 Capsule 5 4 Active busPIRone HCl 10 MG Oral Tablet (Buspar)Indicat ions:Anxiety state TAKE 1 TABLET BY MOUTH IN THE MORNING AND AT BEDTIME 60 Tablet 5 4 024 Discontinued D3 High Potency 50 MCG (1999 UT) Oral Capsule (Cholecalcifero l) TAKE 1 CAPSULE BY MOUTH ONCE DAILY IN THE MORNING 30 Capsule 5 4 024 Discontinued Mirtazapine 15 MG Oral Tablet (Remeron)Indica tions:Major depressive disorder, single episode, moderate (HCC) TAKE 1 AND 1/2 TABLET BY MOUTH AT BEDTIME 45 Tablet 5 4 024 Discontinued Aspirin Low Dose 81 MG Oral Tablet Delayed Release (aspirin enteric coated)Indicati ons:Atheroscler otic heart disease of [place] coronary artery without angina pectoris TAKE 1 TABLET BY MOUTH ONCE DAILY IN THE MORNING 30 Tablet 5 4 024 Discontinued Ferrous Sulfate 325 (65 Fe) MG Oral Tablet (Feosol) TAKE 1 TABLET BY MOUTH IN THE MORNING AND AT BEDTIME 60 Tablet 5 4 024 Discontinued PreserVision AREDS 2 Oral Capsule TAKE 1 CAPSULE BY MOUTH ONCE DAILY IN THE MORNING 30 Capsule 5 4 024 Discontinued traZODone HCl 50 MG Oral Tablet (Desyrel)Indica tions:Major depressive disorder, single episode, moderate (HCC) TAKE 1/2 TABLET BY MOUTH AT BEDTIME 15 Tablet 4 024 Discontinued Gabapentin 100 MG Oral Capsule (Neurontin) TAKE 1 CAPSULE BY MOUTH ONCE DAILY AT BEDTIME 30 Capsule 5 4 024 Discontinued ALPRAZolam 0.25 MG Oral Tablet (xaNAX)Indicati ons:Anxiety state TAKE ONE TABLET BY MOUTH IN THE MORNING AND ONE TABLET AT BEDTIME NEEDED FOR ANXIETY 30 Tablet 4 Discontinued Hospital, Clinic, or Other Facility Administered Medication Ordered Dose Route Frequency Start Date End Date Status albuterol sulfate (PROVENTIL) (2.5 MG/3ML) 0.083% inhalation solution 2.5 mgIndications:COPD, severity to be determined (HCC) 2.5 mg NEBULIZER [id number] 08/16/2018 Active documented as of this encounter (statuses as of 08/23/2024) Active Problems Problem Noted Date Diagnosed Date [...] infarction) 02/15/2018 Coronary artery disease invo lving barrow coronary artery of barrow heart without angina pectoris 02/15/2018 History of breast cancer 02/13/2017 CNH (chondrodermatitis nodularis helicis) 2013 Type 2 diabetes mellitus wit h hemoglobin A1c goal of less than 8.0% 12/16/2013 Overview (01/06/2016): ICD-10 update of inactive term DYSLIPIDEMIA, GOAL LDL BELOW 100 08/25/2009 Overview (08/25/2009): Per Lipid Taxonomy. GERD (gastroesophageal reflux disease) 2 documented as of this encounter (statuses as of 08/23/2024) Resolved Problems Problem Noted Date Diagnosed Date [...] as of this encounter (statuses as of 08/23/2024) Immunizations Name Administration Dates Next Due COVID-19 [...] Encounter - Shea Sanz III, MD - 08/23/2024 9:55 AM ESTSigned Prescriptions: Disp Refills traZODone HCl 50 MG Oral Tablet (Desyrel) 15 Tab*5 Sig: TAKE 1/2TABLET BY MOUTH AT BEDTIMEAuthorizing Provider: SHEA SANZ III User: NETTIE TARIQ D3 High Potency 50 MCG (2000 UT) Oral Caps*30 Cap*5 Sig: TAKE 1 CAPSULE BY MOUTH ONCE DAILY IN THEMORNINGAuthorizing Provider: SHEA SANZ III Ferrous Sulfate 325 (65 Fe) MG Oral Tablet*60 Tab*5Sig: TAKE 1 TABLET BY MOUTH IN THE MORNING AND AT BEDTIMEAuthorizing Provider: SHEA SANZ III User: NETTIE TARIQ Mirtazapine 15 MG Oral Tablet (Remeron) 45 Tab*5 Sig: TAKE 1 AND 1/2 TABLET BY MOUTH AT BEDTIMEAuthorizing Provider: SHEA SANZ III busPIRone HCl 10 MG Oral Tablet (Buspar) 60 Tab*5 Sig: TAKE 1 TABLET BY MOUTH IN THE MORNING AND AT BEDTIMEAuthorizing Provider: SHEA SANZ III Aspirin Low Dose 81 MG Oral Tablet Delayed*30 Tab*5 Sig: TAKE 1 TABLET BY MOUTH ONCE DAILY IN THE MORNING Authorizing Provider: SHEA SANZ III User: NETTIE TARIQ Gabapentin 100 MG Oral Capsule (Neurontin) 30 Cap*5 Sig: TAKE 1 CAPSULE BY MOUTH ONCE DAILY AT BEDTIMEAuthorizing Provider: SHEA SANZ III PreserVision AREDS Oral Capsule 30 Cap*5 Sig: TAKE 1 CAPSULE BY MOUTH ONCE DAILY IN THE MORNINGAuthorizing Provider: SHEA SANZ III * Telephone Encounter - Nettie Tariq, [facility] - 08/22/2024 2:15 PM EST Pending Prescriptions: Disp Refills D3 High Potency 50 MCG (2000 UT) Oral Caps*30 Cap*5 Sig: TAKE 1CAPSULE BY MOUTH ONCE DAILY IN THE MORNING Mirtazapine 15 MG Oral Tablet (Remeron) 45 Tab*5 Sig: TAKE 1 AND 1/2 TABLET BY MOUTH AT BEDTIME busPIRone HCl 10 MG Oral Tablet (Buspar) 60 Tab*5 Sig: TAKE 1 TABLET BY MOUTH IN THE MORNING AND AT BEDTIME Gabapentin 100 MG Oral Capsule (Neurontin) 30Cap*5 Sig: TAKE 1 CAPSULE BY MOUTH ONCE DAILY AT BEDTIME PreserVision AREDS Oral Capsule 30 Cap*5 Sig: TAKE 1 CAPSULE BY MOUTH ONCE DAILY IN THE MORNINGSigned Prescriptions: Disp Refills traZODone HCl 50 MG Oral Tablet (Desyrel) 15 Tab*5 Sig: TAKE 1/2 TABLET BY MOUTH AT BEDTIMEAuthorizing Provider:SHEA SANZ III User: NETTIE TARIQ Ferrous Sulfate 325 (65 Fe) MGOral Tablet*60 Tab*5 Sig: TAKE 1 TABLET BY MOUTH IN THE MORNING AND AT BEDTIMEAuthorizing Provider:SHEA SANZ III User: NETTIE TARIQ Aspirin Low Dose 81 MG Oral Tablet Delayed*30 Tab*5 Sig: TAKE 1 TABLET BY MOUTH ONCE DAILY IN THE MORNINGAuthorizing Provider: SHEA SANZ III User: NETTIE TARIQ documented in this encounter Plan of Treatment Upcoming Encounters Date Type Department Care Team (Late st Contact Info) Description 10/02/2024 5:20 PM EST Office Visit Family Practice [facility] [place] [address] [place] [address] Ericka Rankin PA-C [address] [facility] [place] [address] Health Maintenance Due Date Last Done Comments [...] Monitoring 06/22/2024 06/22/2023 CKD HGB USE SMARTSET 02251 11/14/202411/14, 11/22/2022, 06/02/2022, Additional history exists CKD PHOS USE SMARTSET 02425 11/14/2024 03/0 03/2024, 02/22/2023, 11/22/2022, Additional history exists O2 ASSESSMENT COMPLETED IN PAST YEAR FOR COPD 11/14/2024 11/15/2023 Diabetic Eye Exam 01/23/2025 01/24/2024, , 07/25/2021, Additional history exists DTap/Tdap Vaccines (2 - Td or Tdap) 02/13/2027 02/13/2017, 09/27/2007 Pneumococcal Vaccine: 65+ Years Completed 09/30/2014, 05/11/2005 Zoster Vaccines Completed 06/05/2019, 02/08, 06/20/2007 VITAMIN D LEVEL ONCE IN A LIFETIME-USE SMARTSET# [id number] Completed 05/25/2020, 07/16/2018, 02/11/2018, Additional history exists [...] as of this encounter Visit Diagnoses Diagnosis Major depressive disorder, single episode, moderate (HCC) Major depressive disorder, single episode, moderate Anxiety state Anxiety state, unspecified 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
--- OUTSIDE RECORDS SUMMARY | 2024-10-24 21:08 | External Medical Summary | Summary of Care ---
Author Name Unknown Organization [facility] Address [address] [place] [address] Phone [phone] Care Team Providers Care Chef Kitchen Manager Name Role Phone Ezequiel ROBBINS MD, Shea Sims Primary Care Provider [phone] Reason for Visit * Reason Comments eRx-Medication Refill Encounter Details Date Type Department Care Team (Late st Contact Info) Description 08/21/[address] [facility] [address] [facility] [place] [address] Jake Lee, DO [address] [place] [address] Anxiety state Allergies Active Allergy Reactions Criticality Noted Date Comments Penicillins Rash 08/28/2000 documented as of this encounter (statuses as of 08/23/2024) Medications [facility] Oral Tablet Take [...] AT BEDTIME 15 Tablet 5 4 Active Ferrous Sulfate 325 (65 Fe) MG Oral Tablet (Feosol) TAKE 1 TABLET BY MOUTH IN THE MORNING AND AT BEDTIME 60 Tablet 5 4 Active Aspirin Low Dose 81 MG Oral Tablet Delayed Release (aspirin enteric coated)Indicati ons:Atheroscler otic heart disease of [place] coronary artery without angina pectoris TAKE 1 TABLET BY MOUTH ONCE DAILY IN THE MORNING 30 Tablet 5 4 Active ALPRAZolam 0.25 MG Oral Tablet (xaNAX)Indicati ons:Anxiety state TAKE ONE TABLET BY MOUTH IN THE MORNING AND ONE TABLET AT BEDTIME NEEDED FOR ANXIETY 30 Tablet 4 Active busPIRone HCl 10 MG Oral Tablet (Buspar)Indicat ions:Anxiety state TAKE 1 TABLET BY MOUTH IN THE MORNING AND AT BEDTIME 60 Tablet 5 4 024 Discontinued D3 High Potency 50 MCG (2000 UT) Oral Capsule (Cholecalcifero l) TAKE 1 CAPSULE BY MOUTH ONCE DAILY IN THE MORNING 30 Capsule 5 4 024 Discontinued Mirtazapine 15 MG Oral Tablet (Remeron)Indica tions:Major depressive disorder, single episode, moderate (HCC) TAKE 1 AND 1/2 TABLET BY MOUTH AT BEDTIME 45 Tablet 5 4 024 Discontinued PreserVision AREDS 2 Oral Capsule TAKE 1 CAPSULE BY MOUTH ONCE DAILY IN THE MORNING 30 Capsule 5 4 024 Discontinued Gabapentin 100 MG Oral [...] to be determined (HCC) 2.5 mg NEBULIZER [id number] 08/16/2018 Active documented as of this encounter [...] nodule 05/07/2018 Tobacco use disorder 05/07/2018 Old [place] (myocardial infarction) 02/15/2018 Coronary artery disease invo lving [place] coronary artery of [place] heart without angina pectoris 02/15/2018 History of [...] mRNA, LNP-s, No Pre serve, 2-Dose Series (Loftware) 09/12/2021,01/29/2021,01/08/2021 Pneumococcal Conjugate Vacc, 13 Valent (Prevnar) [...] 08/23/2024 9:55 AM ESTSigned Prescriptions: Disp Refills ALPRAZolam 0.25 MG Oral Tablet (xaNAX) 30 Tab*0 Sig: TAKE ONE TABLET BY MOUTH IN THE MORNING AND ONE TABLET AT BEDTIME NEEDED FOR ANXIETYAuthorizing Provider: SHEA SANZ III * Telephone Encounter - Guerline Martinez [facility] - 08/22/2024 2:27 PM ESTPending Prescriptions: Disp Refills ALPRAZolam 0.25 MG Oral Tablet [Pharmacy M*30 Tab*0 Sig: TAKE ONE TABLET BY MOUTH IN THE MORNING AND ONE TABLET AT BEDTIME NEEDED FOR ANXIETY Electronically signed by Guerline Martinez [facility] at 08/22/2024 2:27 PM EST * Telephone Encounter - Guerline Martinez, [facility] - 08/22/2024 2:27 PM EST I have reviewed the patients controlled substance dispensing history in the Prescription Drug Monitoring Program in compliance with the [facility] regulations before prescribing a controlled substance. PDMP checked on 08/22/2024. Pending Prescriptions: Disp Refills ALPRAZolam 0.25 MG Oral Tablet (xaNAX) [P*30 Tab*0 Sig: TAKE ONE TABLET BY MOUTH IN THE MORNING AND ONE TABLET AT BEDTIME NEEDED FOR ANXIETY Last Visit: 11/15/2023 (in office), 09/16/2020 (telemedicine) Next Visit: 10/02/2024 Date medication was last filled: 07/25/24 Date medication is due for refill: 08/08/24 Pharmacy: [facility] [address] Is this request for a controlled substance? Yes and Urine Drug Screen Not completed Toxicology results: No results found. However, due to the size of the patient record, not all encounters were searched.Please check Results Review for a complete set of results. Please approve if appropriate. Thanks, Guerline Martinez, PharmD Clinical Pharmacist [facility] ([facility]) [phone] 08/22/2024 2:27 PM documented in this encounter Plan of Treatment Upcoming Encounters Date Type Department Care Team (Late st Contact Info) Description 10/02/2024 5:20 PM EST Office Visit Family Practice [facility] [place] [address] [place] [address] Ericka Rankin PA-C [address] [facility] [place] [address] Health Maintenance Due Date Last Done Comments [...] Monitoring 06/22/2024 06/22/2023 CKD HGB USE SMARTSET 29437 11/14/202411/14, 11/22/2022, 06/02/2022, Additional history exists CKD PHOS USE SMARTSET 82325 11/14/2024 03/0 03/2024, 02/22/2023, 11/22/2022, Additional history exists O2 ASSESSMENT COMPLETED IN PAST YEAR FOR COPD 11/14/2024 11/15/2023 Diabetic Eye Exam 01/23/2025 01/24/2024, , 07/25/2021, Additional history exists DTap/Tdap Vaccines (2 - Td or Tdap) 02/13/2027 02/13/2017, 09/27/2007 Pneumococcal Vaccine: 65+ Years Completed 09/30/2014, 05/11/2005 Zoster Vaccines Completed 06/05/2019, 02/08, 06/20/2007 VITAMIN D LEVEL ONCE IN A LIFETIME-USE SMARTSET# [id number] Completed 05/25/2020, 07/16/2018, 02/11/2018, Additional history exists [...] unspecified documented in this encounter Care Teams Chef Kitchen Manager Relationship Specialty Start Date End Date Shea Sanz III, MD [address] [place] [address] PCP - General 10/25/00 documented as of this encounter
--- OUTSIDE RECORDS SUMMARY | 2024-10-24 21:08 | External Medical Summary | Summary of Care ---
Author Name Unknown Organization [facility] Address [address] [place] [address] Phone [phone] Care Team Providers Care Regional Marketing Director Name Role Phone Ezequiel ROBBINS MD, Shea Sims Primary Care Provider [phone] Reason for Visit * Reason Onset Date Comments Medication Refill 09/17/2024 Encounter Details Date Type Department Care Team (Late st Contact Info) Description 09/17/2024 Refill Family Practice [facility] [address] [place] [address] hSea Sanz III, MD [address] [place] [address] Anxiety state Allergies Active Allergy Reactions Criticality Noted Date Comments Penicillins Rash 08/28/2000 documented as of this encounter (statuses as of 09/19/2024) Medications [facility] Oral Tablet Take 1 Tablet by [...] enteric coated)Indicati ons:Atheroscler otic heart disease of [place] coronary artery without angina pectoris TAKE 1 [...] 2-4 weeks 454 g 1 5 Active ALPRAZolam 0.25 MG Oral Tablet (xaNAX)Indicati ons:Anxiety state TAKE ONE TABLET BY MOUTH IN THE MORNING AND ONE TABLET AT BEDTIME NEEDED FOR ANXIETY 30 Tablet 4 025 Discontin ued(Refil l) Hospital, Clinic, or Other Facility Administered Medication Ordered Dose Route Frequency Start Date End Date Status albuterol sulfate (PROVENTIL) (2.5 MG/3ML) 0.083% inhalation solution 2.5 mgIndications:COPD, severity to be determined (HCC) 2.5 mg NEBULIZER [id number] 08/16/2018 Active documented as of this encounter (statuses as of 09/19/2024) Active Problems Problem Noted Date Diagnosed Date [...] infarction) 02/15/2018 Coronary artery disease invo lving [place] coronary artery of [place] heart without angina pectoris 02/15/2018 History of breast cancer 02/13/2017 CNH (chondrodermatitis nodularis helicis) 2013 Type 2 diabetes mellitus wit h hemoglobin A1c goal of less than 8.0% 12/16/2013 Overview (01/06/2016): ICD-10 update of inactive term DYSLIPIDEMIA, GOAL LDL BELOW 100 08/25/2009 Overview (08/25/2009): Per Lipid Taxonomy. GERD (gastroesophageal reflux disease) 2 documented as of this encounter (statuses as of 09/19/2024) Resolved Problems Problem Noted Date Diagnosed Date [...] as of this encounter (statuses as of 09/19/2024) Immunizations Name Administration Dates Next Due COVID-19 [...] Miscellaneous Notes * Telephone Encounter - Shea Sazn III, MD - 09/19/2024 11:49 AM ESTSigned Prescriptions: Disp Refills ALPRAZolam 0.25 MG Oral Tablet (xaNAX) 30 Tab*0 Sig: TAKE ONE TABLET BY MOUTH IN THE MORNING AND ONE TABLET AT BEDTIME NEEDED FOR ANXIETYAuthorizing Provider: SHEA SANZ III * Telephone Encounter - Mariam Briceño LPN - 09/19/2024 8:35 AM ESTPending Prescriptions: Disp Refills ALPRAZolam 0.25 MG Oral Tablet (xaNAX) 30 Tab*0 Sig: TAKE ONE TABLET BY MOUTH IN THE MORNING AND ONE TABLET AT BEDTIME NEEDED FOR ANXIETY * Telephone Encounter - Deb Crowe OSA - 09/17/2024 10:33 AM EST Did you pend patient's preferred pharmacy and medication before forwarding?yes Pharmacy: [address] Pending Prescriptions: Disp Refills ALPRAZolam 0.25 MG Oral Tablet (xaNAX) 30 Tab*0 Sig: TAKE ONE TABLET BY MOUTH IN THE MORNING AND ONE TABLET AT BEDTIME NEEDED FOR ANXIETY Last Visit: 09/04/2024 (in office), 09/16/2020 (telemedicine) Next Visit: 10/02/2024 If no future appointments scheduled, and last appointment is greater than a year ago, please schedule patient for a follow-up appointment Last date the medication was ordered: [id number] Is this request for a controlled substance?Yes, What was the last refill date [id number] w/ quantity 30 and dosage .25mg and Urine Drug Screen Not completed Urine Drug Screen:No results found. However, due [...] EST Office Visit Family Practice [facility] [address] [place] [address] Ericka Rankin PA-C [address] [place] [address] Health Maintenance Due Date Last Done Comments [...] Monitoring 06/22/2024 06/22/2023 CKD HGB USE SMARTSET 20403 11/14/202411/14, 11/22/2022, 06/02/2022, Additional history exists CKD PHOS USE SMARTSET 51040 11/14/2024 03/0 03/2024, 02/22/2023, 11/22/2022, Additional history exists Diabetic Eye Exam 01/23/2025 01/24/2024, , 07/25/2021, Additional history exists O2 ASSESSMENT COMPLETED IN PAST YEAR FOR COPD 09/04/2025 09/04/2024 DTap/Tdap Vaccines (2 - Td or Tdap) 02/13/2027 02/13/2017, 09/27/2007 Pneumococcal Vaccine: 50+ Years Completed 09/30/2014, 05/11/2005 Zoster Vaccines Completed 06/05/2019, 02/08, 06/20/2007 VITAMIN D LEVEL ONCE IN A LIFETIME-USE SMARTSET# [id number] Completed 05/25/2020, 07/16/2018, 02/11/2018, Additional history exists [...] unspecified documented in this encounter Care Teams Regional Marketing Director Relationship Specialty Start Date End Date Shea Sanz III, MD [address] [place] [address] PCP - General 10/25/00 documented as of this encounter
--- OUTSIDE RECORDS SUMMARY | 2024-10-24 21:08 | External Medical Summary | Summary of Care ---
Author Name Unknown Organization [facility] Address [address] [place] [address] Phone [phone] Care Team Providers Care Customs Director Name Role Phone Ezequiel ROBBINS MD, Bandar Sims Primary Care Provider [phone] Reason for Visit * Reason Comments NEW [...] skin eruption Flaco Ash, DO [address] [place] [address] Phone: tel: fax: Referral ID Status Reason Start Date Expiration Date Visits Requested Visits Authorized [id number] Authorized Specialty Services Required [phone] Encounter Details Date Type Department Care Team (Late st Contact Info) Description 09/17/2024 1:10 PM EST Office Visit Dermatology, Maximo Nicholas [address] [address] Yenifer Duran PA-C [address] [id number] Rash and nonspecific skin eruption* Allergies Active [...] enteric coated)Indicatio ns:Atherosclerot ic heart disease of [place] coronary artery without angina pectoris TAKE 1 [...] to be determined (HCC) 2.5 mg NEBULIZER [id number] 08/16/2018 Active documented as of this encounter [...] infarction) 02/15/2018 Coronary artery disease invo lving [place] coronary artery of [place] heart without angina pectoris 02/15/2018 History of [...] as of this encounter Progress Notes * Per Nixon MD - 09/17/2024 1:10 PM EST I have reviewed the relevant notes and photographs taken by YUE Rivera. I have reviewed and agree with the assessment and plan. Per Nixon MD * Yenifer Duran PA-C - 09/17/2024 1:06 [...] x 5--adenomatous polyps--repeat 5 years Breast cancer ([facility]) 2006 Left Breast Cancer - Dr. Russell Bronchiectasis ([facility]) CKD (chronic kidney disease) stage 3, GFR 30-59 ml/min ([facility]) 01/20/2016 COPD (chronic obstructive pulmonary disease) ([facility]) Coronary artery disease involving [place] coronary artery of [place] heart without angina pectoris 02/15/2018 Depressive disorder, not elsewhere classified Diabetic eye exam ([facility]) 08/05/12 no retinopathy DM type 2, not at goal ([facility]) Dyslipidemia, goal to be determined GERD (gastroesophageal reflux disease) 07/30/2002 Lung nodule Malignant neoplasm of other specified sites of female breast left Menopause [place] (myocardial infarction) 02/15/2018 Other psoriasis Panic disorder Sleep apnea, obstructive Patien t Active Problem List Diagnosis GERD (gastroesophageal reflux disease) DYSLIPIDEMIA, GOAL LDL BELOW 100 Type 2 diabetes mellitus with hemoglobin A1c goal of less than 8.0% (HCC) CNH (chondrodermatitis nodularis helicis) History of breast cancer [place] (myocardial infarction) Coronary artery disease involving [place] coronary artery of [place] heart without angina pectoris Lung nodule Tobacco use disorder Hypersomnolence Diabetes mellitus with stage 3 chronic kidney disease (HCC) Centrilobular emphysema (HCC) RLS (restless legs syndrome) SILVIA (obstructive sleep apnea) Anxiety state Bronchiectasis without complication ([facility]) Hyperparathyroidism, secondary renal ([facility]) COPD, group B, by GOLD 2017 classification ([facility]) Exudative age-related macular degeneration of left eye with active choroidal neovascularization ([facility]) DDD (degenerative disc disease), lumbar Age-related osteoporosis without current pathological fracture Major depressive disorder, single episode, moderate ([facility]) Stage 3b chronic kidney disease (HCC) SOCIAL HISTORY: Social History Tobacco Use Smoking [...] Current Outpatient Medications Medication Sig Dispense Refill Reese Senior Oral Tablet Take 1 Tablet [...] Vargas CRNP 2.5 mg at 11/28/18 1538 ALLERG [...] patient consented to photos. Contact patient via [employer] Patient Phone Numbers Applicable photos (if any) and chart reviewed by Dr. Ge Nixon The patient was encouraged to contact me with any further questions or concerns. Yenifer Duran PA-C 09/17/2024 1:06 PM REF: FLACO ASH [address] [place] [address] [place] [address] (office) [phone] (fax) documented in this encounter Nursing Notes [...] Description 10/23/2024 5:20 PM EST Office Visit [facility] Jessi Kirby [address] [facility] [address] [place] [address] Ericka Rankin PA-C [address] [facility] [place] [address] Pending Results Name Type Priority Associated Diagnoses [...] Monitoring 06/22/2024 06/22/2023 CKD HGB USE SMARTSET 19705 11/14/202411/14, 11/22/2022, 06/02/2022, Additional history exists CKD PHOS USE SMARTSET 90151 11/14/2024 03/0 03/2024, 02/22/2023, 11/22/2022, Additional history exists Diabetic Eye Exam 01/23/2025 01/24/2024, , 07/25/2021, Additional history exists O2 ASSESSMENT COMPLETED IN PAST YEAR FOR COPD 09/04/2025 09/04/2024 DTap/Tdap Vaccines (2 - Td or Tdap) 02/13/2027 02/13/2017, 09/27/2007 Pneumococcal Vaccine: 50+ Years Completed 09/30/2014, 05/11/2005 Zoster Vaccines Completed 06/05/2019, 02/08, 06/20/2007 VITAMIN D LEVEL ONCE IN A LIFETIME-USE SMARTSET# [id number] Completed 05/25/2020, 07/16/2018, 02/11/2018, Additional history exists [...] study not interpreted or resulted by a [facility] or [employer] contracted radiologist. Yenifer Duran PA-C RADIOLOGY (RAD GENERAL) Final Result documented in this encounter Visit Diagnoses Diagnosis Rash and nonspecific skin eruption- Primary Rash and other nonspecific skin eruption documented in this encounter Care Teams Customs Director Relationship Specialty Start Date End Date Bandar Nieves III, MD [address] [place] [address] [place] [address] PCP - General 10/25/00 documented as of this encounter
--- OUTSIDE RECORDS SUMMARY | 2024-10-24 21:08 | External Medical Summary | Summary of Care ---
Author Name Unknown Organization [facility] Address [address] [place] [address] Phone [phone] Care Team Providers Care Music Librarian Name Role Phone Ezequiel ROBBINS MD, Bandar Sims Primary Care Provider [phone] Encounter Details Date Type Department Care Team (Latest Contact Info) Description 09/17/2024 1:42 PM EST - 09/17/2024 11:59 PM EST Hospital Encounter Radiology Film File [address] [place] [address] Arrived Discharge Disposition: Home - Self Care Allergies Active Allergy Reactions Criticality Noted Date Comments Penicillins Rash 08/28/2000 documented as of this encounter (statuses as of 09/18/2024) [facility] Take 1 Tablet by [...] enteric coated)Indicatio ns: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 TAKE 1 [...] to be determined (HCC) 2.5 mg NEBULIZER [id number] 08/16/2018 Active documented as of this encounter [...] nodule 05/07/2018 Tobacco use disorder 05/07/2018 [place] (myocardial infarction) 02/15/2018 Coronary artery disease invo lving [place] coronary artery of [place] heart without angina pectoris 02/15/2018 History of [...] Visit Family Practice [facility] [address] [place] [address] Ericka Rankin PA-C [address] [place] [address] Health Maintenance Due Date Last Done Comments [...] Monitoring 06/22/2024 06/22/2023 CKD HGB USE SMARTSET 85577 11/14/202411/14, 11/22/2022, 06/02/2022, Additional history exists CKD PHOS USE SMARTSET 68456 11/14/2024 03/0 03/2024, 02/22/2023, 11/22/2022, Additional history exists Diabetic Eye Exam 01/23/2025 01/24/2024, , 07/25/2021, Additional history exists O2 ASSESSMENT COMPLETED IN PAST YEAR FOR COPD 09/04/2025 09/04/2024 DTap/Tdap Vaccines (2 - Td or Tdap) 02/13/2027 02/13/2017, 09/27/2007 Pneumococcal Vaccine: 50+ Years Completed 09/30/2014, 05/11/2005 Zoster Vaccines Completed 06/05/2019, 02/08, 06/20/2007 VITAMIN D LEVEL ONCE IN A LIFETIME-USE SMARTSET# [id number] Completed 05/25/2020, 07/16/2018, 02/11/2018, Additional history exists [...] interpreted or resulted by a [facility] or [facility] contracted radiologist. Yenifer Duran PA-C RADIOLOGY (RAD GENERAL) Final Result documented in this encounter Care Teams Music Librarian Relationship Specialty Start Date End Date Bandar Nieves III, MD [address] [place] [address] PCP - General 10/25/00 documented as of this encounter
--- OUTSIDE RECORDS SUMMARY | 2024-10-24 21:08 | External Medical Summary | Summary of Care ---
Author Name Unknown Organization [facility] Address [address] [place] [address] Phone [phone] Care Team Providers Care Hospital Housekeeper Name Role Phone Ezequiel ROBBINS MD, Bandar Sims Primary Care Provider [phone] Reason for Referral * Evaluate & Treat - Unlimited Visits (Within 30 days (routine)) - Authorized Specialty Diagnoses / Procedures Referred By Memo rod Referred To Contact Dermatology Diagnoses Rash and nonspecific skin eruption Nel Ash DO [address] [place] [address] Phone: tel: fax: Referral ID Status Reason Start Date Expiration Date Visits Requested Visits Authorized [id number] Authorized Specialty Services Required 4 [phone] Question Answer Referral Priority Within 30 days (routine) Where should this appointment be scheduled? [facility] Are you referring the patient for Mohs Surgery and have a current positive skin cancer biopsy result? No What is the reason for the patient referral? Rash/Skin Check/Eval of Lesion or Mole Reason for Visit * Reason Comments Rash Encounter Details Date Type Department Care Team (Late st Contact Info) Description 09/04/2024 3:40 PM EST Office Visit Family Practice [facility] Jessi [place] [address] [place] [address] Nel García, DO [address] [facility] [place] [address] Rash and nonspecific skin eruption* Allergies Active Allergy Reactions Criticality Noted Date Comments Penicillins Rash 08/28/2000 documented as of this encounter (statuses as of 09/07/2024) Medications Sentry Senior Oral Tablet Take 1 Tablet by mouth in the morning. 11/20/2022 Active Stiolto Respimat 2.5-2.5 MCG/ACT Inhalation Aerosol Solution (Tiotropium-Olod aterol) Inhale 2 Puffs by mouth in the morning. 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 TAKE 1 TABLET BY MOUTH ONCE DAILY IN THE MORNING 30 Tablet 5 08/22/2024 Active ALPRAZolam 0.25 MG Oral Tablet (xaNAX)Indicatio ns:Anxiety state TAKE ONE TABLET BY MOUTH IN THE MORNING AND ONE TABLET AT BEDTIME NEEDED FOR ANXIETY 30 Tablet 08/23/2024 Active Gabapentin 100 MG Oral Capsule (Neurontin) TAKE 1 CAPSULE BY MOUTH ONCE DAILY AT BEDTIME 30 Capsule 08/23/2024 Active PreserVision AREDS Oral Capsule TAKE 1 CAPSULE BY MOUTH ONCE DAILY IN THE MORNING 30 Capsule 5 08/23/2024 Active predniSONE 10 MG Oral Tablet (Deltasone) Take 5 tabs for 2 days, 4 tabs for 2 days, 3 tabs for 2 days, 2 tabs for 2 days 1 tab for 2 days 30 Tablet 09/04/2024 Active Famotidine 20 MG Oral Tablet (Pepcid) Take 1 Tablet by mouth in the morning and 1 Tablet before bedtime. 60 Tablet 09/04/2024 Active Cetirizine HCl 10 MG Oral Tablet (ZyrTEC) Take 1 Tablet by mouth in the morning and 1 Tablet before bedtime. 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 GERD (gastroesophageal reflux disease) 2 documented as of this encounter (statuses as of 09/07/2024) Resolved Problems Problem Noted Date Diagnosed Date [...] as of this encounter (statuses as of 09/07/2024) Immunizations Name Administration Dates Next Due COVID-19 [...] Sign Reading Time Taken Comments Blood Pressure 108/64 09/04/2024 3:46 PM EST Pulse 106 09/04/2024 3:46 PM EST Temperature 36.7 C (98 F) 09/04/2024 3:46 PM EST Respiratory Rate 20 09/04/2024 3:46 PM EST Oxygen Saturation 96% 09/04/2024 3:46 PM EST Inhaled Oxygen Concentration - - Weight 74.4 kg (164 lb) 09/04/2024 3:46 PM EST Height - - Body Mass Index 27.29 06/22/2023 12:39 PM EDT documented in this encounter Patient Instructions * Patient Instructions* Nel Ash DO - 09/04/2024 4:04 PM EST Take benadryl 25mg at bedtime documented in this encounter Progress Notes * Nel Ash DO - 09/04/2024 3:52 PM EST Images from the original note were not included. Subjective: Alexandra Agudelo is a 83 year old female. Chief Complaint Patient presents with Rash HPI: Alexandra Agudelo presents with complaints of itchy rash all over her body. 83yo female with very itchy rash, started on chest, upper back, right side/bottom, scalp, arms, andon b/l palms- has fluid filled blisters,(blisters only seen on palms. Went to [facility] pred[facility] for 5 days which she thinks helped some, but has not resolved and now itching is back. Also taking benadryl at night. PHM: Patient Active Problem List Diagnosis GERD (gastroesophageal reflux disease) DYSLIPIDEMIA, GOAL LDL BELOW 100 Type 2 diabetes mellitus with hemoglobin A1c goal of less than 8.0% ([facility]) CNH (chondrodermatitis nodularis helicis) History of breast cancer [place] (myocardial infarction) Coronary artery disease involving [place] coronary artery of [place] heart without angina pectoris Lung nodule Tobacco use disorder Hypersomnolence Diabetes mellitus with stage 3 chronic kidney disease ([facility]) Centrilobular emphysema ([facility]) RLS (restless legs syndrome) SILVIA (obstructive sleep apnea) Anxiety state Bronchiectasis without complication ([facility]) Hyperparathyroidism, secondary renal ([facility]) COPD, group B, by GOLD 2017 classification ([facility]) Exudative age-related macular degeneration of left eye with active choroidal neovascularization ([facility]) DDD (degenerative disc disease), lumbar Age-related osteoporosis without current pathological fracture Major depressive disorder, single episode, moderate ([facility]) Stage 3b chronic kidney disease ([facility]) Current Outpatient Medications Medication Sig Dispense Refill Cetirizine HCl 10 MG Oral Tablet (ZyrTEC) Take 1 Tablet by mouth in the morning and 1 Tablet beforebedtime. 60 Tablet 0 Famotidine 20 MG Oral Tablet (Pepcid) Take 1 Tablet by mouth in the morning and 1 Tablet before bedtime. 60 Tablet 0 predniSONE 10 MG Oral Tablet (Deltasone) Take 5 tabs for 2 days, 4 tabs for 2 days, 3 tabs for 2 days, 2 tabs for 2 days 1 tab for 2 days 30 Tablet 0 ALPRAZolam 0.25 MG Oral Tablet (xaNAX) TAKE ONE TABLET BY MOUTH IN THE MORNING AND ONE TABLET AT BEDTIME NEEDED FOR ANXIETY 30 Tablet 0 busPIRone HCl 10 MG Oral Tablet (Buspar) TAKE 1 TABLET BY MOUTH IN THE MORNING AND AT BEDTIME 60 Tablet 5 D3 High Potency 50 MCG (2000 UT) Oral Capsule (Cholecalciferol) TAKE 1 CAPSULE BY MOUTH ONCE DAILY IN THE MORNING 30 Capsule 5 Gabapentin 100 MG Oral Capsule (Neurontin) TAKE 1 CAPSULE BY MOUTH ONCE DAILY AT BEDTIME 30 Capsule5 Mirtazapine 15 MG Oral Tablet (Remeron) TAKE 1 AND 1/2 TABLET BY MOUTH AT BEDTIME 45 Tablet 5 PreserVision AREDS Oral Capsule TAKE 1 CAPSULE BY MOUTH ONCE DAILY IN THE MORNING 30 Capsule 5 Aspirin Low Dose 81 MG Oral Tablet Delayed Release (aspirin enteric coated) TAKE 1 TABLET BY MOUTH ONCE DAILY IN THE MORNING 30 Tablet 5 Ferrous Sulfate 325 (65 Fe) MG Oral Tablet (Feosol) TAKE 1 TABLET BY MOUTH IN THE MORNING AND AT BEDTIME 60 Tablet 5 traZODone HCl 50 MG Oral Tablet (Desyrel) TAKE 1/2 TABLET BY MOUTH AT BEDTIME 15 Tablet 5 Arthritis Pain Relief 650 MG Oral Tablet Extended Release (Acetaminophen ER) TAKE 2 TABLETS BY MOUTH AT BEDTIME, 2 TABS IN THE MORNING, MAY TAKE 2 MORE 8 HOURS LATER 120 Tablet 5 Omeprazole 40 MG Oral Capsule Delayed Release (PriLOSEC) TAKE 1 CAPSULE BY MOUTH IN THE MORNING ANDAT BEDTIME 180 Capsule 1 Meclizine HCl 12.5 MG Oral Tablet (Antivert) Take 1 Tablet by mouth 3 times a day as needed for Dizziness. 30 Tablet 1 B-12 1000 MCG Oral Tablet TAKE TWO TABLETS BY MOUTH 8AM 60 Tablet 11 Stiolto Respimat 2.5-2.5 MCG/ACT Inhalation Aerosol Solution (Tiotropium- Olodaterol) Inhale 2 Puffsby mouth in the morning. 4 g 11 Sentry Senior Oral Tablet Take 1 Tablet by mouth in the morning. Current Facility-Administered Medications Medication Dose Route Frequency Provider Last Rate Last Admin albuterol sulfate (PROVENTIL) (2.5 MG/3ML) 0.083% inhalation solution 2.5 mg 2.5 mg Nebulizer Resp Q6H Barbi Vargas CRNP 2.5 mg at 11/28/18 5378 Review of patient's allergies indicates: Allergen Reactions Penicillins Rash Objective: BP 108/64 | Pulse 106 | Temp 98 F (36.7 C) (Tympanic) | Resp 20 | Wt 164 lb (74.4 kg) | SpO2 96% | BMI 27.29 kg/m | BSA 1.85 m Physical Exam: ASSESSMENT/PLAN: Ask-a-doc sent to dermatology, Rash and nonspecific skin eruption (Primary) - DERMATOLOGY REFERRAL OP Other orders - predniSONE 10 MG Oral Tablet (Deltasone); Take 5 tabs for 2 days, 4 tabs for 2 days, 3 tabs for 2days, 2 tabs for 2 days 1 tab for 2 days - Famotidine 20 MG Oral Tablet (Pepcid); Take 1 Tablet by mouth in the morning and 1 Tablet before bedtime. - Cetirizine HCl 10 MG Oral Tablet (ZyrTEC); Take 1 Tablet by mouth in the morning and 1 Tablet before bedtime. reviewed appropriate use, benefits, risks, side effects and alternatives. Follow Up: Return if symptoms worsen or fail to improve, for Clinic Visit. | For: Clinic Visit | Check-out note: Derm- cancellation list 20 min spent with patient, reviewing history, performing physical exam, reviewing labs, studies, specialist OVNs, and reports, educating and coordinating care, discussing treatment Nel Ash DO documented in this encounter Nursing Notes * Dafne Nowak LPN - 09/04/2024 3:46 PM EST Alexandra Agudelo presents with complaints of itchy rash all over her body. documented in this encounter Plan of Treatment Upcoming Encounters Date Type Department Care Team (Late st Contact Info) Description 10/02/2024 5:20 PM EST Office Visit Family Practice [facility] [address] [place] [address] rEicka Rankin PA-C [address] [facility] [place] [address] 04/06/2025 3:30 PM EDT Office Visit Dermatology [facility] [place] [address] [place] [address] Jett Maurer MD [address] [facility] [place] [address] Scheduled Referrals Name Type Priority Associated Diagnoses Orde r Schedule DERMATOLOGY REFERRAL OP Referral Within 30 days (routine) Rash and nonspecific skin eruption Ordered: 09/04/2024 Health Maintenance Due Date Last Done Comments [...] Monitoring 06/22/2024 06/22/2023 CKD HGB USE SMARTSET 82901 11/14/202411/14, 11/22/2022, 06/02/2022, Additional history exists CKD PHOS USE SMARTSET 13885 11/14/2024 03/0 03/2024, 02/22/2023, 11/22/2022, Additional history exists Diabetic Eye Exam 01/23/2025 01/24/2024, , 07/25/2021, Additional history exists O2 ASSESSMENT COMPLETED IN PAST YEAR FOR COPD 09/04/2025 09/04/2024 DTap/Tdap Vaccines (2 - Td or Tdap) 02/13/2027 02/13/2017, 09/27/2007 Pneumococcal Vaccine: 50+ Years Completed 09/30/2014, 05/11/2005 Zoster Vaccines Completed 06/05/2019, 02/08, 06/20/2007 VITAMIN D LEVEL ONCE IN A LIFETIME-USE SMARTSET# [id number] Completed 05/25/2020, 07/16/2018, 02/11/2018, Additional history exists [...] eruption documented in this encounter Care Teams Hospital Housekeeper Relationship Specialty Start Date End Date Bandar Nieves III, MD [address] [facility] [address] PCP - General 10/25/00 documented as of this encounter"
--- OUTSIDE RECORDS SUMMARY | 2024-10-24 21:09 | External Medical Summary | Summary of Care ---
Author Name Unknown Organization [facility] Address [address] [place] [address] Phone [phone] Care Team Providers Care Metallurgical Engineering Teacher Name Role Phone Ezequiel ROBBINS MD, Shea Sims Primary Care Provider [phone] Reason for Visit * Reason Comments eRx-Medication Refill Encounter Details Date Type Department Care Team (Late st Contact Info) Description 07/18/2024 Refill Family Practice [facility] [address] [facility] [place] [address] Nel Ash, DO [address] [place] [address] DDD (degenerative disc disease), lumbar Allergies Active Allergy Reactions Criticality Noted Date Comments Penicillins Rash 08/28/2000 documented as of this encounter (statuses as of 07/21/2024) Medications [facility] Oral Tablet Take 1 Tablet by [...] enteric coated)Indicati ons:Atheroscler otic heart disease of [place] coronary artery without angina pectoris TAKE 1 [...] AT BEDTIME 30 Capsule 5 4 Active ALPRAZolam 0.25 MG Oral Tablet (xaNAX)Indicati ons:Anxiety state TAKE ONE TABLET BY MOUTH IN THE MORNING AND ONE TABLET AT BEDTIME NEEDED FOR ANXIETY 30 Tablet 4 Active Omeprazole 40 MG Oral Capsule [...] HOURS LATER 120 Tablet 5 4 Active Arthritis Pain Relief 650 MG Oral Tablet Extended Release (Acetaminophen ER)Indications: DDD (degenerative disc disease), lumbar TAKE 2 TABLETS BY MOUTH AT BEDTIME, 2 TABS IN THE MORNING, MAY TAKE 2 MORE 8 HOURS LATER 120 Tablet 5 3 024 Discontinued Hospital, Clinic, or Other Facility Administered Medication Ordered Dose Route Frequency Start Date End Date Status albuterol sulfate (PROVENTIL) (2.5 MG/3ML) 0.083% inhalation solution 2.5 mgIndications:COPD, severity to be determined (HCC) 2.5 mg NEBULIZER EXPGR1C 08/16/2018 Active documented as of this encounter (statuses as of 07/21/2024) Active Problems Problem Noted Date Diagnosed Date [...] nodule 05/07/2018 Tobacco use disorder 05/07/2018 [place] (myocardial infarction) 02/15/2018 Coronary artery disease invo lving [place] coronary artery of [place] heart without angina pectoris 02/15/2018 History of breast cancer 02/13/2017 CNH (chondrodermatitis nodularis helicis) 2013 Type 2 diabetes mellitus wit h hemoglobin A1c goal of less than 8.0% 12/16/2013 Overview (01/06/2016): ICD-10 update of inactive term DYSLIPIDEMIA, GOAL LDL BELOW 100 08/25/2009 Overview (08/25/2009): Per Lipid Taxonomy. GERD (gastroesophageal reflux disease) 2 documented as of this encounter (statuses as of 07/21/2024) Resolved Problems Problem Noted Date Diagnosed Date [...] as of this encounter (statuses as of 07/21/2024) Immunizations Name Administration Dates Next Due COVID-19 mRNA, LNP-s, No Pre serve, 2-Dose Series ([employer]) 09/12/2021,01/29/2021,01/08/2021 Pneumococcal Conjugate Vacc, 13 Valent (Prevnar) [...] Encounter - Shea Sanz III, MD - 07/21/2024 7:48 AM ESTSigned Prescriptions: Disp Refills Arthritis Pain Relief 650 MG Oral Tablet E*120 Ta*5 Sig: TAKE 2 TABLETS BY MOUTH AT BEDTIME, 2 TABS IN THE MORNING, MAY TAKE 2 MORE 8 HOURS LATERAuthorizing Provider: SHEA SANZ III * Telephone Encounter - Nettie Tariq [facility] - 07/21/2024 6:52 AM EST Pending Prescriptions: Disp Refills Arthritis Pain Relief 650 MG Oral Tablet E*120 Ta*5 Sig: TAKE 2 TABLETS BY MOUTH AT BEDTIME, 2 TABS IN THE MORNING, MAY TAKE 2 MORE 8 HOURS LATER * Telephone Encounter - Nettie Tariq [facility] - 07/21/2024 6:52 AM EST Refill pharmacists currently not authorized to approve refills for this class of medication per refill protocol. Please approve if appropriate. Thank you, Nettie Tariq, PharmD. Clinical Pharmacist Pharmacy Refill Call Center 07/21/2024, 6:52 AM documented in this encounter Plan of Treatment Upcoming Encounters Date Type Department Care Team (Late st Contact Info) Description 08/11/2024 1:30 PM EST Office Visit Ophthalmology, [facility] [address] [address] Alexx Melgoza DO [address] [address] Health Maintenance Due Date Last Done Comments [...] Monitoring 06/22/2024 06/22/2023 CKD HGB USE SMARTSET 50414 11/14/202411/14, 11/22/2022, 06/02/2022, Additional history exists CKD PHOS USE SMARTSET 27027 11/14/2024 03/0 03/2024, 02/22/2023, 11/22/2022, Additional history exists O2 ASSESSMENT COMPLETED IN PAST YEAR FOR COPD 11/14/2024 11/15/2023 Diabetic Eye Exam 01/23/2025 01/24/2024, , 07/25/2021, Additional history exists DTap/Tdap Vaccines (2 - Td or Tdap) 02/13/2027 02/13/2017, 09/27/2007 Pneumococcal Vaccine: 65+ Years Completed 09/30/2014, 05/11/2005 Zoster Vaccines Completed 06/05/2019, 02/08, 06/20/2007 VITAMIN D LEVEL ONCE IN A LIFETIME-USE SMARTSET# [id number] Completed 05/25/2020, 07/16/2018, 02/11/2018, Additional history exists [...] as of this encounter Visit Diagnoses Diagnosis DDD (degenerative disc disease), lumbar Degeneration of lumbar or lumbosacral intervertebral disc documented in this encounter Care Teams Metallurgical Engineering Teacher Relationship Specialty Start Date End Date Shea Sanz III, MD [address] [place] [address] PCP - General 10/25/00 documented as of this encounter
--- OUTSIDE RECORDS SUMMARY | 2024-10-24 21:09 | External Medical Summary | Summary of Care ---
Author Name Unknown Organization [facility] Address [address] [place] [address] Phone [phone] Care Team Providers Care Gypsum Block Setter Name Role Phone Ezequiel ROBBINS MD, John E Primary Care Provider Reason for Visit * Reason Comments eRx-Medication Refill Encounter Details Date Type Department Care Team (Late st Contact Info) Description 06/25/2024 Refill Family Practice [facility] [address] [place] [address] Bandar Nieves III, MD [address] [place] [address] Routine medical exam*; Anxiety state; Gastroesophageal reflux disease with esophagitis without hemorrhage; Encounter for long-term (current) use of medications Allergies Active Allergy Reactions Criticality Noted Date Comments Penicillins Rash 08/28/2000 documented as of this encounter (statuses as of 06/26/2024) Medications Medication Sig Dispensed Refills Start Date End Date Status [facility] Oral Tablet Take 1 Tablet by mouth in the morning. 11/20/2022 Active Stiolto Respimat 2.5-2.5 MCG/ACT Inhalation Aerosol Solution (Tiotropium-Oloda terol) Inhale 2 Puffs by mouth in the morning. 4 g 11 06/22/2023 Active Arthritis Pain Relief 650 MG Oral Tablet Extended Release (Acetaminophen ER)Indications:DD D (degenerative disc disease), lumbar TAKE 2 TABLETS BY MOUTH AT BEDTIME, 2 TABS IN THE MORNING, MAY TAKE 2 MORE 8 HOURS LATER 120 Tablet 5 08/23/2023 Active B-12 1000 MCG Oral Tablet TAKE TWO TABLETS BY MOUTH 8AM 60 Tablet 11 09/20/2023 Active Meclizine HCl 12.5 MG Oral Tablet (Antivert)Indicat ions:Benign paroxysmal positional vertigo, unspecified laterality Take 1 Tablet by mouth 3 times a day as needed for Dizziness. 30 Tablet 1 11/15/2023 Active busPIRone HCl 10 MG Oral Tablet (Buspar)Indicatio ns:Anxiety state TAKE 1 TABLET BY MOUTH IN THE MORNING AND AT BEDTIME 60 Tablet 03/06/2024 Active D3 High Potency 50 MCG (2000 UT) Oral Capsule (Cholecalciferol) TAKE 1 CAPSULE BY MOUTH ONCE DAILY IN THE MORNING 30 Capsule 03/06/2024 Active Mirtazapine 15 MG Oral Tablet (Remeron)Indicati ons:Major depressive disorder, single episode, moderate (HCC) TAKE 1 AND 1/2 TABLET BY MOUTH AT BEDTIME 45 Tablet 03/06/2024 Active Aspirin Low Dose 81 MG Oral Tablet Delayed Release (aspirin enteric coated)Indication s:Atherosclerotic heart disease of [place] coronary artery without angina pectoris TAKE 1 TABLET BY MOUTH ONCE DAILY IN THE MORNING 30 Tablet 03/06/2024 Active Ferrous Sulfate 325 (65 Fe) MG Oral Tablet (Feosol) TAKE 1 TABLET BY MOUTH IN THE MORNING AND AT BEDTIME 60 Tablet 03/06/2024 Active PreserVision AREDS 2 Oral Capsule TAKE 1 CAPSULE BY MOUTH ONCE DAILY IN THE MORNING 30 Capsule 03/06/2024 Active traZODone HCl 50 MG Oral Tablet (Desyrel)Indicati ons:Major depressive disorder, single episode, moderate (HCC) TAKE 1/2 TABLET BY MOUTH AT BEDTIME 15 Tablet 03/06/2024 Active Gabapentin 100 MG Oral Capsule (Neurontin) TAKE 1 CAPSULE BY MOUTH ONCE DAILY AT BEDTIME 30 Capsule 03/06/2024 Active ALPRAZolam 0.25 MG Oral Tablet (xaNAX)Indication s:Anxiety state TAKE ONE TABLET BY MOUTH IN THE MORNING AND ONE TABLET AT BEDTIME NEEDED FOR ANXIETY 30 Tablet 06/26/2024 Active Omeprazole 40 MG Oral Capsule Delayed Release (PriLOSEC)Indicat ions:Gastroesopha geal reflux disease with esophagitis without hemorrhage TAKE 1 CAPSULE BY MOUTH IN THE MORNING AND AT BEDTIME 180 Capsule 1 06/26/2024 Active Omeprazole 40 MG Oral Capsule Delayed Release (PriLOSEC)Indicat ions:Gastroesopha geal reflux disease with esophagitis without hemorrhage TAKE 1 CAPSULE BY MOUTH IN THE MORNING AND AT BEDTIME 180 Capsule 2 10/17/2023 4 Discontinued ALPRAZolam 0.25 MG Oral Tablet (xaNAX)Indication s:Anxiety state TAKE ONE TABLET BY MOUTH IN THE MORNING AND ONE TABLET AT BEDTIME NEEDED FOR ANXIETY 30 Tablet 05/30/2024 4 Discontinued Hospital, Clinic, or Other Facility Administered Medication Ordered Dose Route Frequency Start Date End Date Status albuterol sulfate (PROVENTIL) (2.5 MG/3ML) 0.083% inhalation solution 2.5 mgIndications:COPD, severity to be determined (HCC) 2.5 mg NEBULIZER [id number] 08/16/2018 Active documented as of this encounter (statuses as of 06/26/2024) Active Problems Problem Noted Date Diagnosed Date [...] infarction) 02/15/2018 Coronary artery disease invo lving [place] coronary artery of [place] heart without angina pectoris 02/15/2018 History of breast cancer 02/13/2017 CNH (chondrodermatitis nodularis helicis) 2013 Type 2 diabetes mellitus wit h hemoglobin A1c goal of less than 8.0% 12/16/2013 Overview: ICD-10 update of inactive term DYSLIPIDEMIA, GOAL LDL BELOW 100 08/25/2009 Overview: Per Lipid Taxonomy. ADVANCE DIRECTIVE INFORMATION 02/05/2007 Overview: No, Advance Directive brochure given to patient 06/12/06. GERD (gastroesophageal reflux disease) 2 documented as of this encounter (statuses as of 06/26/2024) Resolved Problems Problem Noted Date Diagnosed Date [...] 12/16/2013 12/16/2013 Benign neoplasm of colon 10/29/200704/2017 Overview: polyp x 5--adenomatous polyps--repeat 5 years Type 2 diabetes mellitus wit h hemoglobin A1c goal of less than 7.0% 08/09/2006 12/16/2013 Overview: ICD-10 update of inactive term Malignant neoplasm of upper- outer quadrant of female breast 07/03/2006 02/13/2017 Cancer Staging:Clinical: Unsigned Pathologic:Stage IIA(T2, N1, M0) - Unsigned Esophageal stricture 07/30/2002 017 Dyslipidemia, goal to be determined 07/30/2002 08/25/2009 Overview: Per Lipid Taxonomy. Panic disorder 02/15/2018 Menopause 05/20/2018 DM type 2, not at goal 05/18 Malignant neoplasm of other specified sites of female breast 02/13/2017 Overview: left documented as of this encounter (statuses as of 06/26/2024) Immunizations Name Administration Dates Next Due COVID-19 mRNA, LNP-s, No Pre serve, 2-Dose Series ([employer] - [employer]) 09/12/2021,01/29/2021,01/08/2021 Pneumococcal Conjugate Vacc, 13 Valent (Prevnar) [...] money to get more. Never true 06/22/2023 Sex and Gender Information Value Date Recorded Sex Assigned at Female 06/22/2023 12:34 PM EDT Gender Identity Female 06/22/2023 12:34 PM EDT Sexual Orientation Straight 06/22/2023 12 :34 PM EDT Job Start Date Occupation Industry Not on file Not on file Not on file documented as of this encounter Miscellaneous Notes * Telephone Encounter - Donald Stephen DO - 06/26/2024 4:29 PM EDTSigned Prescriptions: Disp Refills ALPRAZolam 0.25 MG Oral Tablet (xaNAX) 30 Tab*0 Sig: TAKE ONE TABLET BY MOUTH IN THE MORNING AND ONE TABLET AT BEDTIME NEEDED FOR ANXIETY Authorizing Provider: DONALD STEPHEN Omeprazole 40 MG Oral Capsule Delayed Rele*180 Ca*1 Sig: TAKE 1 CAPSULE BY MOUTH IN THE MORNING AND AT BEDTIME Authorizing Provider: BALWINDER GRIFFIN AOrdering User: ERICA ASCENCIO * Telephone Encounter - Erica Ascencio [facility] - 06/26/2024 1:42 PM EDT Pending Prescriptions: Disp Refills ALPRAZolam 0.25 MG Oral Tablet (xaNAX) 30 Tab*0 Sig: TAKE ONE TABLET BY MOUTH IN THE MORNING AND ONE TABLET AT BEDTIME NEEDED FOR ANXIETY Signed Prescriptions: Disp Refills Omeprazole 40 MG Oral Capsule Delayed Rele*180 Ca*1 Sig: TAKE 1 CAPSULE BY MOUTH IN THE MORNING AND AT BEDTIME Authorizing Pr ovider: BALWINDER GRIFFIN A Ordering User: ERICA ASCENCIO * Telephone Encounter - Erica Ascencio [facility] - 06/26/2024 1:40 PM EDT I have reviewed the patients controlled substance dispensing history in the Prescription Drug Monitoring Program in compliance with the [facility] regulations before prescribing a controlled substance. PDMP checked on 06/26/2024. Pending Prescriptions: Disp Refills ALPRAZolam 0.25 MG Oral Tablet (xaNAX) [P*30 Tab*0 Sig: TAKE ONE TABLET BY MOUTH IN THE MORNING AND ONE TABLET AT BEDTIME NEEDED FOR ANXIETY Last Visit: 11/15/2023 (in office), 09/16/2020 (telemedicine) Next Visit: Visit date not found Date medication was last filled: 05/30/24 Date medication is due for refill: 06/13/24 Pharmacy: [facility] [address] Is this request for a controlled substance? Yes and Urine Drug Screen Not completed Toxicology results: No results found. However, due to the size of the patient record, not all encounters were searched.Please check Results Review for a complete set of results. Please approve if appropriate. Thank you, Erica Ascencio, PharmD Clinical Pharmacist [facility] ([facility]) 06/26/24 1:42 PM [phone] documented in this encounter Plan of Treatment Upcoming Encounters Date Type Department Care Team (Late st Contact Info) Description 08/11/2024 1:30 PM EST Office Visit Ophthalmology, [facility] [address] [place] [address] Alexx Melgoza DO [address] [place] [address] Scheduled Orders Name Type Priority Associated Diagnoses Orde r Schedule MAGNESIUM Lab Routine Encounter for long-term (current) use of medications Expected: 06/26/2024 (Approximate), Expires: 06/26/2025 ALBUMIN / CREATININE RATIO, URINE Lab Routine Routine medical exam Expected: 06/26/2024 (Approximate), Expires: 06/26/2025 COMPREHENSIVE METABOLIC PANEL Lab Routine Routine medical exam Expected: 06/26/2024 (Approximate), Expires: 06/27/2025 HEMOGLOBIN A1C Lab Routine Routine medical exam Expected: 06/26/2024 (Approximate), Expires: 06/27/2025 Health Maintenance Due Date Last Done Comments Adult Wellness Visit 2005 DXA Scan 02/08/2017 02/08/2015, 01/10, 02/07/2012, Additional history exists Diabetic Foot Exam 07/30/2021 07/30/2020, 0 10/30/2019, 01/17/2019, Additional history exists *BISPHONATE OR OTHER ACCEPTABLE MEDICATION NEEDED FOR OSTEOPOROSIS (REFER TO SMARTSET #1146) 02/25/2023 Albumin/Creatinine Ratio 02/27/20242 023, 11/17/2019, 01/17/2019, Additional history exists COVID-19 Vaccine ( season) 2024 09/12/2021, 01/29/2021, 01/08/2021 Influenza Vaccine (FLU shot) (#1) 2024 06/22/2023, 06/02/2022, 06/16/2021, Additional history exists GFR 05/17/2024 11/15/2023, 02/08, 11/22/2022, Additional history exists HbA1c 05/17/2024 11/15/2023, 02/08, 11/22/2022, Additional history exists Depression Monitoring 06/22/2024 06/22/2023 CKD HGB USE SMARTSET 74678 11/14/202411/14, 11/22/2022, 06/02/2022, Additional history exists CKD PHOS USE SMARTSET [id number] 11/14/2024 03/0 03/2024, 02/22/2023, 11/22/2022, Additional history exists O2 ASSESSMENT COMPLETED IN PAST YEAR FOR COPD 11/14/2024 11/15/2023 Diabetic Eye Exam 01/23/2025 01/24/2024, , 07/25/2021, Additional history exists DTap/Tdap Vaccines (2 - Td or Tdap) 02/13/2027 02/13/2017, 09/27/2007 Pneumococcal Vaccine: 65+ Years Completed 09/30/2014, 05/11/2005 Zoster Vaccines Completed 06/05/2019, 02/08, 06/20/2007 VITAMIN D LEVEL ONCE IN A LIFETIME-USE SMARTSET# [id number] Completed 05/25/2020, 07/16/2018, 02/11/2018, Additional history exists [...] as of this encounter Visit Diagnoses Diagnosis Routine medical exam- Primary Routine general medical examination at a health care facility Anxiety state Anxiety state, unspecified Gastroesophageal reflux disease with esophagitis without hemorrhage Encounter for long-term (current) use of medications Encounter for long-term (current) use of other medications documented in this encounter Care Teams Gypsum Block Setter Relationship Specialty Start Date End Date Bandar Nieves III, MD [address] [facility] [place] [address] PCP - General 10/25/00 documented as of this encounter
--- OUTSIDE RECORDS SUMMARY | 2024-10-24 21:09 | External Medical Summary | Summary of Care ---
Author Name Unknown Organization [facility] Address [address] [place] [address] Phone [phone] Care Team Providers Care Air Pollution Analyst Name Role Phone Ezequiel ORBBINS MD, Bandar Sims Primary Care Provider [phone] Reason for Visit * Reason Comments Follow Up 3-4 month follow up * Precert (Within 10 days (routine)) - Authorized Specialty Diagnoses / Procedures Referred By Memo rod Referred To Contact Ophthalmology Diagnoses Exudative age-related macular degeneration, left eye, with active choroidal neovascularization (HCC) Procedures AK AFLIBERCEPT INJECTION AK INTRAVITREAL NJX PHARMACOLOGIC AGT SPX Alexx Melgoza DO [address] [facility] [place] [address] Referral ID Status Reason Start Date Expiration Date V isits Requested Visits Authorized [id number] Authorized Precert 01/02/2024 01/01/2025 [id number] Encounter Details Date Type Department Care Team (Late st Contact Info) Description 04/29/2024 2:00 PM EDT Office Visit Ophthalmology, [facility] [address] [facility] [place] [address] Alexx Melgoza DO [address] [facility] [place] [address] Exudative age-related macular degeneration of left eye with active choroidal neovascularization (HCC)*; Intermediate stage nonexudative age-related macular degeneration of right eye Allergies Active Allergy Reactions Criticality Noted Date Comments Penicillins Rash 08/28/2000 documented as of this encounter (statuses as of 04/29/2024) Medications Medication Sig Dispensed Refills Start Date End Date Status Sentry Senior Oral Tablet Take 1 Tablet by mouth in the morning. 11/20/2022 Active Stiolto Respimat 2.5-2.5 MCG/ACT Inhalation Aerosol Solution (Tiotropium-Olodater ol) Inhale 2 Puffs by mouth in the morning. 4 g 11 06/22/2023 Active Arthritis Pain Relief 650 MG Oral Tablet Extended Release (Acetaminophen ER)Indications:DDD (degenerative disc disease), lumbar TAKE 2 TABLETS BY MOUTH AT BEDTIME, 2 TABS IN THE MORNING, MAY TAKE 2 MORE 8 HOURS LATER 120 Tablet 5 08/23/2023 Active B-12 1000 MCG Oral Tablet TAKE TWO TABLETS BY MOUTH 8AM 60 Tablet 11 09/20/2023 Active Omeprazole 40 MG Oral Capsule Delayed Release (PriLOSEC)Indication s:Gastroesophageal reflux disease with esophagitis without hemorrhage TAKE 1 CAPSULE BY MOUTH IN THE MORNING AND AT BEDTIME 180 Capsule 2 10/17/2023 Active Meclizine HCl 12.5 MG Oral Tablet (Antivert)Indication s:Benign paroxysmal positional vertigo, unspecified laterality Take 1 Tablet by mouth 3 times a day as needed for Dizziness. 30 Tablet 1 11/15/2023 Active busPIRone HCl 10 MG Oral Tablet (Buspar)Indications: Anxiety state TAKE 1 TABLET BY MOUTH IN THE MORNING AND AT BEDTIME 60 Tablet 5 03/06/2024 Active D3 High Potency 50 MCG (2000 UT) Oral Capsule (Cholecalciferol) TAKE 1 CAPSULE BY MOUTH ONCE DAILY IN THE MORNING 30 Capsule 5 03/06/2024 Active Mirtazapine 15 MG Oral Tablet (Remeron)Indications :Major depressive disorder, single episode, moderate (HCC) TAKE 1 AND 1/2 TABLET BY MOUTH AT BEDTIME 45 Tablet 5 03/06/2024 Active Aspirin Low Dose 81 MG Oral Tablet Delayed Release (aspirin enteric coated)Indications:A therosclerotic heart disease of [place] coronary artery without angina pectoris TAKE 1 TABLET BY MOUTH ONCE DAILY IN THE MORNING 30 Tablet 5 03/06/2024 Active Ferrous Sulfate 325 (65 Fe) MG Oral Tablet (Feosol) TAKE 1 TABLET BY MOUTH IN THE MORNING AND AT BEDTIME 60 Tablet 5 03/06/2024 Active PreserVision AREDS 2 Oral Capsule TAKE 1 CAPSULE BY MOUTH ONCE DAILY IN THE MORNING 30 Capsule 03/06/2024 Active traZODone HCl 50 MG Oral Tablet (Desyrel)Indications :Major depressive disorder, single episode, moderate (HCC) TAKE 1/2 TABLET BY MOUTH AT BEDTIME 15 Tablet 03/06/2024 Active Gabapentin 100 MG Oral Capsule (Neurontin) TAKE 1 CAPSULE BY MOUTH ONCE DAILY AT BEDTIME 30 Capsule 03/06/2024 Active ALPRAZolam 0.25 MG Oral Tablet (xaNAX)Indications:A nxiety state TAKE ONE TABLET BY MOUTH IN THE MORNING AND ONE TABLET AT BEDTIME NEEDED FOR ANXIETY 30 Tablet 04/04/2024 Active Hospital, Clinic, or Other Facility Administered Medication Ordered Dose Route Frequency Start Date End Date Status albuterol sulfate (PROVENTIL) (2.5 MG/3ML) 0.083% inhalation solution 2.5 mgIndications:COPD, severity to be determined (HCC) 2.5 mg NEBULIZER [id number] 08/16/2018 Active documented as of this encounter (statuses as of 04/29/2024) Active Problems Problem Noted Date Diagnosed Date [...] nodule 05/07/2018 Tobacco use disorder 05/07/2018 Old NV (myocardial infarction) 02/15/2018 Coronary artery disease invo lving [place] coronary artery of [place] heart without angina pectoris 02/15/2018 History of [...] as of this encounter (statuses as of 04/29/2024) Resolved Problems Problem Noted Date Diagnosed Date [...] as of this encounter (statuses as of 04/29/2024) Immunizations Name Administration Dates Next Due COVID-19 mRNA, LNP-s, No Pre serve, 2-Dose Series ([employer]) 09/12/2021,01/29/2021,01/08/2021 Pneumococcal Conjugate Vacc, 13 Valent (Prevnar) 09/30/2014 Season Influenza, Quad, PF, Adjuvanted, 65+ Yrs, IM (FLUAD) 05/26/2020 Seasonal Influenza Virus Vac cine, Unspecified Formulation 05/26/2020 Seasonal Influenza, PF, 6 M & above, IM , (FluLaval or Fluzone) 07/04/2018 Seasonal Influenza, Quadriva lent Hd (Fluzone Hd) 06/22/2023,06/02/2022,06/16/2021 Seasonal Influenza, Quadriva lent, No Preserve, IM 05/16/2016,07/07/2015 Seasonal Influenza, Split, I IV3, With Preserve, Inj 06/17/2014,06/17/2013,06/17/2012,2010,07/22/2010,05/18/2009,07/07/2008,1 ,08/09/2006 Seasonal Influenza, Trivalen t, Adjuvanted, 65+ yrs 07/30/2019 Seasonal Influenza, Trivalen t, High Dose, No Preserve, IM 06/05/2019,08/17/2017 TD - Tetanus/Diptheria (ADULT) 09/27/2007 TDAP (age [...] on file documented as of this encounter Progress Notes * Alexx Melgoza, - 04/29/2024 2:00 PM EDT [facility] [place] Nursing Notes: Otilia Rai LPN 04/29/24 1421 Signed Alexandra Agudelo is a 83 year old year old female who presents for AMD OU. Last Office Visit: 01/24/2024 (in office), Visit date not found (telemedicine) Patient currently states no change in vision. Are you diabetic? No Do you drive? no OCT image(s) of both eyes acquired and filed/scanned into chart. Base Eye Exam Visual Acuity (Snellen - Linear) Right Left Dist cc 20/30 20/800 -1 Dist ph cc 20/400 -1 Tonometry (Tonopen, 2:20 PM) Right Left Pressure 16 unable to get Pupils Pupils APD Right PERRL None Left PERRL None Visual Landry (Counting fingers) Right Left Full Full Extraocular Movement Right Left Full, Ortho Full, Ortho Neuro/Psych Oriented x3: Yes Dilation Both eyes: 0.5% Proparacaine @ 2:19 PM Dilation #2 Both eyes: 1.0% Mydriacyl, 2.5% Phenylephrine @ 2:19 PM Dilation Comments Patient cautioned that effects of dilation may last 2-7 hours dependant upon individual reaction. It was discussed that driving while dilated is not recommended. EXTERNAL: The ocular adnexae are unremarkable. SLE: Lids/Lashes: wnl OU Conjunctiva/Sclera: quiet OU Cornea: clear OU Anterior Chamber: deep and quiet OU Iris: normal OU; no NVI OU Lens: PCIOL OU Dilated fundus exam OD: vitreous: PVD optic nerve: 0.2, peripapillary atrophy, no edema/pallor/NVD macula: drusen vessels: wnl periphery: wnl, no RT/RD Dilated fundus exam OS: vitreous: PVD optic nerve: 0.2, prepapillary atrophy, no edema/pallor/NVD macula: drusen vessels: wnl periphery: wnl, no RT/RD OCT Interpretation: OD: drusen, thin choroid, no CME/SRFluid, +PVD - STABLE, prior stable OS: PED with resolved SRFluid, drusen, thin choroid, +PVD--imroved, prior worse, prior improved 41um, prior worse 56um, prior improved, prior no sig chnge, prior mixed, prior mixed, prior improved, prior worse, prior improved, prior worse, prior trace improved, prior worse, improved 31um, prior improved A/P: 1. Age-Related Macular Degeneration OU OD: dry -recommend AREDS2 MVI as directed and Amsler grid qday OS: wet - s/p Avastin (04-07-20, 02-18-20, 01-20-20, 12/09/19, 11-11-19) - Eylea (07/25/21, 04-05-21, 02/09/21, 10-27-20, 08-31-20, 07-21-20, 05-26-20) - >1 year -pt did not f/u as recommended; VA down and OCT worse; restarted Eylea -Eylea 12/20/22 -no improvement in VA--CF -hold on further injections 2. Posterior Vitreous Detachment OU -no RT/RD -advised to return to clinic if she should experience worsening or new floaters, flashes of light, a shadow in the periphery, or decrease in vision. 3. Pseudophakia OU -stable F/u 3-4 months- dilate and OCT OU CC: Wilber Yepez, OD PCP: Bandar Nieves III, MD documented in this encounter Nursing Notes * Otilia Rai LPN - 04/29/2024 2:10 PM EDT Alexandra Agudelo is a 83 year old year old female who presents for AMD OU. Last Office Visit: 01/24/2024 (in office), Visit date not found (telemedicine) Patient currently states no change in vision. Are you diabetic? No Do you drive? no OCT image(s) of both eyes acquired and filed/scanned into chart. documented in this encounter Plan of Treatment Upcoming Encounters Date Type Department Care Team (Late st Contact Info) Description 08/11/2024 1:30 PM EST Office Visit Ophthalmology, [facility] [address] [place] [address] Alexx Melgoza DO [address] [place] [address] Scheduled Orders Name Type Priority Associated Diagnoses Orde r Schedule RETINA SCAN DIAGNOSTIC IMAGE, POSTERIOR Procedures Routine Exudative age-related macular degeneration of left eye with active choroidal neovascularization (HCC) Ordered: 04/29/2024 Health Maintenance Due Date Last Done Comments Adult Wellness Visit 2005 DXA Scan 02/08/2017 02/08/2015, 01/10, 02/07/2012, Additional history exists Diabetic Foot Exam 07/30/2021 07/30/2020, 0 10/30/2019, 01/17/2019, Additional history exists *BISPHONATE OR OTHER ACCEPTABLE MEDICATION NEEDED FOR OSTEOPOROSIS (REFER TO SMARTSET #1146) 02/25/2023 COVID-19 Vaccine ( season) 2023 09/12/2021, 01/29/2021, 01/08/2021 Albumin/Creatinine Ratio 02/27/2024 023, 11/17/2019, 01/17/2019, Additional history exists Influenza Vaccine (FLU shot) (#1) 2024 06/22/2023, 06/02/2022, 06/16/2021, Additional history exists GFR 05/17/2024 11/15/2023, 02/08, 11/22/2022, Additional history exists HbA1c 05/17/2024 11/15/2023, 02/08, 11/22/2022, Additional history exists Depression Monitoring 06/22/2024 06/22/2023 CKD HGB USE SMARTSET 80386 11/14/202411/14, 11/22/2022, 06/02/2022, Additional history exists CKD PHOS USE SMARTSET 38472 11/14/2024 03/0 03/2024, 02/22/2023, 11/22/2022, Additional history exists O2 ASSESSMENT COMPLETED IN PAST YEAR FOR COPD 11/14/2024 11/15/2023 Diabetic Eye Exam 01/23/2025 01/24/2024, , 07/25/2021, Additional history exists DTaP,Tdap,and Td Vaccines (2 - Td or Tdap) 02/13/2027 02/13/2017, 09/27/2007 Pneumococcal Vaccine: 65+ Years Completed 09/30/2014, 05/11/2005 Zoster Vaccines Completed 06/05/2019, 02/08, 06/20/2007 VITAMIN D LEVEL ONCE IN A LIFETIME-USE SMARTSET# [id number] Completed 05/25/2020, 07/16/2018, 02/11/2018, Additional history exists [...] as of this encounter Visit Diagnoses Diagnosis Exudative 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
--- OUTSIDE RECORDS SUMMARY | 2024-10-24 21:09 | External Medical Summary | Summary of Care ---
Author Name Unknown Organization [facility] Address [address] [place] [address] Phone [phone] Care Team Providers Care Boarding Specialist Name Role Phone Ezequiel ROBBINS MD, John E Primary Care Provider Reason for Visit * Reason Comments eRx-Medication Refill Encounter Details Date Type Department Care Team (Late st Contact Info) Description 05/01/2024 Refill Family Practice [facility] [address] [place] [address] Shea Sanz III, MD [address] [place] [address] Anxiety state Allergies Active Allergy Reactions Criticality Noted Date Comments Penicillins Rash 08/28/2000 documented as of this encounter (statuses as of 05/05/2024) Medications Medication Sig Dispensed Refills Start Date End Date Status [facility] Oral Tablet Take 1 [...] (aspirin enteric coated)Indication s:Atherosclerotic heart disease of [place] coronary artery without [...] AT BEDTIME NEEDED FOR ANXIETY 30 Tablet 05/05/2024 Active ALPRAZolam 0.25 MG Oral Tablet (xaNAX)Indication s:Anxiety state TAKE ONE TABLET BY MOUTH IN THE MORNING AND ONE TABLET AT BEDTIME NEEDED FOR ANXIETY 30 Tablet 04/04/2024 4 Discontinued Hospital, Clinic, or Other Facility Administered Medication Ordered Dose Route Frequency Start Date End Date Status albuterol sulfate (PROVENTIL) (2.5 MG/3ML) 0.083% inhalation solution 2.5 mgIndications:COPD, severity to be determined (HCC) 2.5 mg NEBULIZER [id number] 08/16/2018 Active documented as of this encounter (statuses as of 05/05/2024) Active Problems Problem Noted Date Diagnosed Date [...] as of this encounter (statuses as of 05/05/2024) Resolved Problems Problem Noted Date Diagnosed Date [...] as of this encounter (statuses as of 05/05/2024) Immunizations Name Administration Dates Next Due COVID-19 mRNA, LNP-s, No Pre serve, 2-Dose Series ([employer]) 09/12/2021,01/29/2021,01/08/2021 Pneumococcal Conjugate Vacc, 13 Valent (Prevnar) [...] Encounter - Shea Sanz III, MD - 05/05/2024 7:45 AM EDTSigned Prescriptions: Disp Refills ALPRAZolam 0.25 MG Oral Tablet (xaNAX) 30 Tab*0 Sig: TAKE ONE TABLET BY MOUTH IN THE MORNING AND ONE TABLET AT BEDTIME NEEDED FOR ANXIETYAuthorizing Provider: SHEA SANZ III * Telephone Encounter - Lanie Cohn [facility] - 05/02/2024 2:59 PM EDTPending Prescriptions: Disp Refills ALPRAZolam 0.25 MG Oral Tablet (xaNAX) 30 Tab*0 Sig: TAKE ONE TABLET BY MOUTH IN THE MORNING AND ONE TABLET AT BEDTIME NEEDED FOR ANXIETY * Telephone Encounter - Lanie Cohn RPh - 05/02/2024 2:58 PM EDT I have reviewed the patients controlled substance dispensing history in the Prescription Drug Monitoring Program in compliance with the [facility] regulations before prescribing a controlled substance. PDMP checked on 05/02/2024. Pending Prescriptions: Disp Refills ALPRAZolam 0.25 MG Oral Tablet (xaNAX) [P*30 Tab*0 Sig: TAKE ONE TABLET BY MOUTH IN THE MORNING AND ONE TABLET AT BEDTIME NEEDED FOR ANXIETY Last Visit: 11/15/2023 (in office), 09/16/2020 (telemedicine) Next Visit: Visit date not found Date medication was last filled: 04/04/2024 Date medication is due for refill: 04/18/2024 Pharmacy: [id number] Is this request for a controlled substance? Yes and Urine Drug Screen Not completed Toxicology results: No results found. However, due to the size of the patient record, not all encounters were searched.Please check Results Review for a complete set of results. Please approve if appropriate. Thank you, Lanie Cohn [facility] Clinical Pharmacist [facility] ([facility]) 05/02/24 2:58 PM [phone] documented in this encounter Plan of Treatment Upcoming Encounters Date Type Department Care Team (Late st Contact Info) Description 08/11/2024 1:30 PM EST Office Visit Ophthalmology, [facility] [address] [place] [address] Alexx Melgoza, [address] [place] [address] Health Maintenance Due Date Last Done Comments [...] Monitoring 06/22/2024 06/22/2023 CKD HGB USE SMARTSET 85047 11/14/202411/14, 11/22/2022, 06/02/2022, Additional history exists CKD PHOS USE SMARTSET 17809 11/14/2024 03/03/2024, 02/22/2023, 11/22/2022, Additional history exists O2 ASSESSMENT COMPLETED IN PAST YEAR FOR COPD 11/14/2024 11/15/2023 Diabetic Eye Exam 01/23/2025 01/24/2024, , 07/25/2021, Additional history exists DTaP,Tdap,and Td Vaccines (2 - Td or Tdap) 02/13/2027 02/13/2017, 09/27/2007 Pneumococcal Vaccine: 65+ Years Completed 09/30/2014, 05/11/2005 Zoster Vaccines Completed 06/05/2019, 02/08, 06/20/2007 VITAMIN D LEVEL ONCE IN A LIFETIME-USE SMARTSET# [id number] Completed 05/25/2020, 07/16/2018, 02/11/2018, Additional history exists [...] unspecified documented in this encounter Care Teams Boarding Specialist Relationship Specialty Start Date End Date Shea Sanz III, MD [address] [place] [address] PCP - General 10/25/00 documented as of this encounter
--- OUTSIDE RECORDS SUMMARY | 2024-10-24 21:09 | External Medical Summary | Summary of Care ---
Author Name Unknown Organization [facility] Address [address] [place] [address] Phone [phone] Care Team Providers Care Hospitality Recruiter Name Role Phone Ezequiel ROBBINS MD, Bandar Sims Primary Care Provider Encounter Details Date Type Department Care Team (Late st Contact Info) Description 06/28/2024 Orders Only PATIENT PORTAL DO NOT DELETE [place] [address] Allergies Active Allergy Reactions Criticality Noted Date Comments Penicillins Rash 08/28/2000 documented as of this encounter (statuses as of 06/28/2024) Medications Medication Sig Dispensed Refills Start Date End Date Status [facility] Oral Tablet Take 1 [...] (aspirin enteric coated)Indications:A therosclerotic heart disease of [place] coronary artery without angina pectoris TAKE 1 [...] AT BEDTIME 180 Capsule 1 06/26/2024 Active Hospital, Clinic, or Other Facility Administered Medication Ordered Dose Route Frequency Start Date End Date Status albuterol sulfate (PROVENTIL) (2.5 MG/3ML) 0.083% inhalation solution 2.5 mgIndications:COPD, severity to be determined (HCC) 2.5 mg NEBULIZER [id number] 08/16/2018 Active documented as of this encounter (statuses as of 06/28/2024) Active Problems Problem Noted Date Diagnosed Date [...] infarction) 02/15/2018 Coronary artery disease invo lving [place] coronary artery of [place] heart without angina pectoris 02/15/2018 History of [...] as of this encounter (statuses as of 06/28/2024) Resolved Problems Problem Noted Date Diagnosed Date [...] as of this encounter (statuses as of 06/28/2024) Immunizations Name Administration Dates Next Due COVID-19 [...] on file documented as of this encounter Plan of Treatment Upcoming Encounters Date Type Department Care Team (Late st Contact Info) Description 08/11/2024 1:30 PM EST Office Visit Ophthalmology, [facility] [address] [place] [address] Alexx Melgoza, DO [address] [place] [address] Health Maintenance Due Date Last Done Comments [...] Monitoring 06/22/2024 06/22/2023 CKD HGB USE SMARTSET 49672 11/14/202411/14, 11/22/2022, 06/02/2022, Additional history exists CKD PHOS USE SMARTSET 45427 11/14/2024 03/0 03/2024, 02/22/2023, 11/22/2022, Additional history exists O2 ASSESSMENT COMPLETED IN PAST YEAR FOR COPD 11/14/2024 11/15/2023 Diabetic Eye Exam 01/23/2025 01/24/2024, , 07/25/2021, Additional history exists DTap/Tdap Vaccines (2 - Td or Tdap) 02/13/2027 02/13/2017, 09/27/2007 Pneumococcal Vaccine: 65+ Years Completed 09/30/2014, 05/11/2005 Zoster Vaccines Completed 06/05/2019, 02/08, 06/20/2007 VITAMIN D LEVEL ONCE IN A LIFETIME-USE SMARTSET# [id number] Completed 05/25/2020, 07/16/2018, 02/11/2018, Additional history exists [...] filedocumented as of this encounter Care Teams Hospitality Recruiter Relationship Specialty Start Date End Date Bandar Nieves III, MD [address] [place], [place] [address] PCP - General 10/25/00 documented as of this encounter
--- OUTSIDE RECORDS SUMMARY | 2024-10-24 21:09 | External Medical Summary | Summary of Care ---
Author Name Unknown Organization [facility] Address [address] [place] [address] Phone [phone] Care Team Providers Care Claims Service Representative Name Role Phone Ezqeuiel ROBBINS MD, John E Primary Care Provider Reason for Visit * Reason Comments eRx-Medication Refill Encounter Details Date Type Department Care Team (Late st Contact Info) Description 05/28/2024 Refill Family Practice [facility] [address] [place] [address] Shea Sanz III, MD [address] [place] [address] Anxiety state Allergies Active Allergy Reactions Criticality Noted Date Comments Penicillins Rash 08/28/2000 documented as of this encounter (statuses as of 05/30/2024) Medications Medication Sig Dispensed Refills Start Date End Date Status [facility] Oral Tablet Take 1 Tablet by [...] (aspirin enteric coated)Indication s:Atherosclerotic heart disease of [place] coronary artery without angina pectoris TAKE 1 [...] BEDTIME NEEDED FOR ANXIETY 30 Tablet 05/30/2024 Active ALPRAZolam 0.25 MG Oral Tablet (xaNAX)Indication s:Anxiety state TAKE ONE TABLET BY MOUTH IN THE MORNING AND ONE TABLET AT BEDTIME NEEDED FOR ANXIETY 30 Tablet 05/05/2024 4 Discontinued Hospital, Clinic, or Other Facility Administered Medication Ordered Dose Route Frequency Start Date End Date Status albuterol sulfate (PROVENTIL) (2.5 MG/3ML) 0.083% inhalation solution 2.5 mgIndications:COPD, severity to be determined (HCC) 2.5 mg NEBULIZER [id number] 08/16/2018 Active documented as of this encounter (statuses as of 05/30/2024) Active Problems Problem Noted Date Diagnosed Date [...] infarction) 02/15/2018 Coronary artery disease invo lving [place] coronary artery of [place] heart without angina pectoris 02/15/2018 History of [...] as of this encounter (statuses as of 05/30/2024) Resolved Problems Problem Noted Date Diagnosed Date [...] as of this encounter (statuses as of 05/30/2024) Immunizations Name Administration Dates Next Due COVID-19 mRNA, LNP-s, No Pre serve, 2-Dose Series ([employer]) 09/12/2021,01/29/2021,01/08/2021 Pneumococcal Conjugate Vacc, 13 Valent [...] Preserve, IM 05/16/2016,07/07/2015 Seasonal Influenza, Trivalen t, (IIV3), with Preserv, (Fluzone) 06/17/2014,06/17/2013,06/17/2012,2010,07/22/2010,05/18/2009,07/07/2008,1 ,08/09/2006 Seasonal Influenza, Trivalen t, Adjuvanted, 65+ YRS, [...] Encounter - Shea Sanz III, MD - 05/30/2024 9:36 AM EDTSigned Prescriptions: Disp Refills ALPRAZolam 0.25 MG Oral Tablet (xaNAX) 30 Tab*0 Sig: TAKE ONE TABLET BY MOUTH IN THE MORNING AND ONE TABLET AT BEDTIME NEEDED FOR ANXIETYAuthorizing Provider: SHEA SANZ III * Telephone Encounter - Avery Reyes [facility] - 05/29/2024 3:58 PM EDTPending Prescriptions: Disp Refills ALPRAZolam 0.25 MG Oral Tablet [Pharmacy M*30 Tab*0 Sig: TAKE ONE TABLET BY MOUTH IN THE MORNING AND ONE TABLET AT BEDTIME NEEDED FOR ANXIETY * Telephone Encounter - Avery Reyes RPh - 05/29/2024 3:57 PM EDT I have reviewed the patients controlled substance dispensing history in the Prescription Drug Monitoring Program in compliance with the [facility] regulations before prescribing a controlled substance. PDMP checked on 05/29/2024. Pending Prescriptions: Disp Refills ALPRAZolam 0.25 MG Oral Tablet (xaNAX) [P*30 Tab*0 Sig: TAKE ONE TABLET BY MOUTH IN THE MORNING AND ONE TABLET AT BEDTIME NEEDED FOR ANXIETY Last Visit: 11/15/2023 (in office), 09/16/2020 (telemedicine) Next Visit: Visit date not found Date medication was last filled: 05-05-24 Date medication is due for refill: 05-20-24 Pharmacy: [address] Is this request for a controlled substance? Yes and Urine Drug Screen Not completed Toxicology results: No results found. However, due to the size of the patient record, not all encounters were searched.Please check Results Review for a complete set of results. Please approve if appropriate. Demarcus Nogueira.Ph. Clinical Pharmacist [facility] [address] [place] [address], [facility] [address]: [phone] 05/29/2024,3:57 PM documented in this encounter Plan of Treatment Upcoming Encounters Date Type Department Care Team (Late st Contact Info) Description 08/11/2024 1:30 PM EST Office Visit Ophthalmology, [facility] [address] [place] [address] Arnaldo Melgozavalentine KimDO [address] [place] [address] Health Maintenance Due Date Last Done Comments [...] Monitoring 06/22/2024 06/22/2023 CKD HGB USE SMARTSET 00402 11/14/202411/14, 11/22/2022, 06/02/2022, Additional history exists CKD PHOS USE SMARTSET 48036 11/14/2024 03/0 03/2024, 02/22/2023, 11/22/2022, Additional history exists O2 ASSESSMENT COMPLETED IN PAST YEAR FOR COPD 11/14/2024 11/15/2023 Diabetic Eye Exam 01/23/2025 01/24/2024, , 07/25/2021, Additional history exists DTap/Tdap Vaccines (2 - Td or Tdap) 02/13/2027 02/13/2017, 09/27/2007 Pneumococcal Vaccine: 65+ Years Completed 09/30/2014, 05/11/2005 Zoster Vaccines Completed 06/05/2019, 02/08, 06/20/2007 VITAMIN D LEVEL ONCE IN A LIFETIME-USE SMARTSET# [id number] Completed 05/25/2020, 07/16/2018, 02/11/2018, Additional history exists [...] unspecified documented in this encounter Care Teams Claims Service Representative Relationship Specialty Start Date End Date Shea Sanz III, MD [address] [place] [address] PCP - General 10/25/00 documented as of this encounter
[2024-10-24] MEDS ORDERED: Nursing to Pharmacy Communication SCH (21:15)
[2024-10-24] MEDS: TRIAMCINOLONE ACET 0.1% OINT 15 GM TUBE TOP SCH (23:46)
[2024-10-24] MEDS: CLOBETASOL PROPIONATE 0.05% OINT 15 GM TUBE EXT SCH (23:46)
[2024-10-25] MEDS: INSULIN ASPART PER UNIT CHARGE SC SCH ×2 (00:18→17:08)
--- OUTSIDE RECORDS SUMMARY | 2024-10-25 00:32 | External Medical Summary | Summary of Care ---
Author Name Unknown Organization [facility] Address [address] [place] [address] Phone [phone] Care Team Providers Care Mixing Machine Tender Cork Rod Name Role Phone Ezequiel ROBBINS MD, Bandar Sims Primary Care Provider [phone] Reason for Visit * Reason Onset Date Comments Pre Cert/Prior Auth 10/24/2024 Encounter Details Date Type Department Care Team (Late st Contact Info) Description 10/24/[address] [facility] [address] [place] [address] Surjit Kim MD [address] [place] [address] Pre Cert/Prior Auth Allergies Active Allergy Reactions Criticality Noted Date Comments Penicillins Rash 08/28/2000 documented as of this encounter (statuses as of 10/24/2024) [facility] Take 1 Tablet by [...] enteric coated)Indicatio ns:Atherosclerot ic heart disease of [place] coronary artery without angina pectoris TAKE 1 [...] trunk and hands daily 60 g 5 10/23/2024 Active DULoxetine HCl 30 MG Oral Capsule Delayed Release Particles (Cymbalta)Indica tions:Bullous pemphigoid Take 1 Capsule by mouth in the morning. Do not cut, crush or chew. 30 Capsule 5 10/23/2024 Active Gabapentin 100 MG Oral Capsule (Neurontin)Indic ations:Bullous pemphigoid Take 1 Capsule by mouth in the morning and 1 Capsule at noon and 1 Capsule before bedtime. 90 Capsule 10/23/2024 Active Nystatin 168649 UNIT/ML Mouth/Throat SuspensionIndica tions:Chronic cough Take 1 mL by mouth in the morning and 1 mL at noon and 1 mL in the evening and 1 mL before bedtime. For thrush.. 60 mL 10/23/2024 11/23/19 25 Active Hospital, Clinic, or Other Facility Administered Medication Ordered Dose Route Frequency Start Date End Date Status albuterol sulfate (PROVENTIL) (2.5 MG/3ML) 0.083% inhalation solution 2.5 mgIndications:COPD, severity to be determined (HCC) 2.5 mg NEBULIZER [id number] 08/16/2018 Active documented as of this encounter [...] infarction) 02/15/2018 Coronary artery disease invo lving [place] coronary artery of [place] heart without angina pectoris 02/15/2018 History of [...] encounter Miscellaneous Notes * Telephone Encounter - Lilliana Martinez OSA - 10/24/2024 12:08 PM EST Forms are scanned in patients chart under "media" tab. * Telephone Encounter - Olga Lidia Isidro OSA - 10/24/2024 11:00 AM EST Received a call from Rosario Hernadez a [employer] Engineer from [employer] - with information regarding an appeal submitted for Gyst. Medication was originally prescribed by Dr. Judy Granadosision is favorable for the medication. APPEAL reference Number is: [id number] [facility] will be faxing information and will contact the Part D plan on [employer] to inform them of the overturning of their denial. To reach [facility] PH: [phone] Rosario verified this Fax number: [phone] I did not recognize it and called [facility], I Spoke with Iveth she said to have Rosario fax to [phone] and she would make sure this information was placed in Pts Chart. Regards. documented in this encounter Plan of Treatment Upcoming Encounters Date Type Department Care Team (Late st Contact Info) Description 11/27/2024 3:00 PM EDT [facility] [address] [facility] [place], [place] [address] Nel Ash, [address] [facility] [place], [place] [address] Health Maintenance Due Date Last Done Comments [...] Monitoring 06/22/2024 06/22/2023 CKD PHOS USE SMARTSET 39207 11/14/2024 03/0 03/2024, 02/22/2023, 11/22/2022, Additional history exists Diabetic Eye Exam 01/23/2025 01/24/2024, , 07/25/2021, Additional history exists HbA1c 04/22/2025 10/23/2024, 03/0 03/2024, 02/22/2023, Additional history exists CKD HGB USE SMARTSET 94505 10/23/202510/23, 11/15/2023, 11/22/2022, Additional history exists O2 ASSESSMENT COMPLETED IN PAST YEAR FOR COPD 10/23/2025 10/23/2024 DTap/Tdap Vaccines (2 - Td or Tdap) 02/13/2027 02/13/2017, 09/27/2007 Pneumococcal Vaccine: 50+ Years Completed 09/30/2014, 05/11/2005 Zoster Vaccines Completed 06/05/2019, 02/08, 06/20/2007 VITAMIN D LEVEL ONCE IN A LIFETIME-USE SMARTSET# [id number] Completed 05/25/2020, 07/16/2018, 02/11/2018, Additional history exists [...] filedocumented as of this encounter Care Teams Mixing Machine Tender Cork Rod Relationship Specialty Start Date End Date Bandar Nieves III, MD [address] [place] [address] PCP - General 10/25/00 documented as of this encounter
--- OUTSIDE RECORDS SUMMARY | 2024-10-25 00:32 | External Medical Summary | Summary of Care ---
Author Name Unknown Organization [facility] Address [address] [place] [address] Phone [phone] Care Team Providers Care Microcomputer Support Specialist Name Role Phone Ezequiel ROBBINS MD, Bandar Sims Primary Care Provider [phone] Reason for Visit * Reason Onset Date Comments Precert Denied 09/30/2024 Dupixent Encounter Details Date Type Department Care Team (Late st Contact Info) Description 09/30/2024 Telephone Dermatology [facility] [address] [place] [address] Surjit Kim MD [address] [place] [address] Precert Denied (Dupixent ) Allergies Active Allergy Reactions Criticality Noted Date Comments Penicillins Rash 08/28/2000 documented as of this encounter (statuses as of 10/24/2024) Medications Sent Senior Oral Tablet Take 1 [...] enteric coated)Indicati ons:Atheroscler otic heart disease of [place] coronary artery without angina pectoris TAKE 1 [...] 8AM 60 Tablet 11 09/24/19 25 Active traZODone HCl 50 MG Oral Tablet (Desyrel)Indica tions:Major depressive disorder, single episode, moderate (HCC) TAKE 1/2 TABLET BY MOUTH AT BEDTIME 15 Tablet 5 08/22/20 24 025 Discontinued Gabapentin 100 MG Oral Capsule (Neurontin) TAKE 1 CAPSULE BY MOUTH ONCE DAILY AT BEDTIME 30 Capsule 5 08/23/20 24 025 Discontinued ALPRAZolam 0.25 MG Oral Tablet (xaNAX)Indicati [...] g 5 09/24/19 25 025 Discontinued(Re fill) Niacinamide 500 MG Oral Tablet Take one tablet in the morning and 1 tablet at night 90 Tablet 2 09/24/19 25 025 Discontinued predniSONE 20 MG Oral Tablet (Deltasone) Take [...] to be determined (HCC) 2.5 mg NEBULIZER [id number] 08/16/2018 Active documented as of this encounter [...] nodule 05/07/2018 Tobacco use disorder 05/07/2018 Old NE (myocardial infarction) 02/15/2018 Coronary artery disease invo lving [place] coronary artery of [place] heart without angina pectoris 02/15/2018 History of [...] Telephone Encounter - Trena Tate RPh - 10/24/2024 11:37 AM EST Appeal approved (see TE from 10/24/24) - I called and LVM with [facility] to get approval dates, they should be returning my request within the next 24 hours. Will follow up Sunday if I do not hear back from [facility] ([facility] is also supposed to be faxing over approval). Trena Tate Medication Therapy Disease Management (MTD) Dermatology Clinical Pharmacist 10/24/2024, 11:39 AM * Telephone Encounter - Yee Jose RPh - 10/21/2024 1:35 PM EST 2nd level urgent appeal faxed. Will check back. Yee Jose PharmD Medication Therapy Disease Management (MTDM) Dermatology Clinical Pharmacist 10/21/2024, 1:35 PM * Telephone Encounter - Yee Jose RPh - 10/17/2024 9:18 AM EST 1st Level Appeal denied. There is an option for 2nd level appeal. 2nd level appeal can take a few weeks to hear back on decision. Sending to provider to advise. Yee Jose PharmD Medication Therapy Disease Management ([facility]) Dermatology Clinical Pharmacist 10/17/2024, 9:19 AM * Telephone Encounter - Yee Jose RPh - 10/15/2024 11:36 AM EST Called to check on appeal- insurance stating they never received request. Requested to speak to someone so I can verbally initiated. Turn around time for decision by Oct 18 at 11:47AM. Number to check on status [phone]. Will fax clinicals to both [phone] & [phone]. Will check back. Yee Jose PharmD Medication Therapy Disease Management ([facility]) Dermatology Clinical Pharmacist 10/15/2024, 11:54 AM * Telephone Encounter - Yee Jose RPh - 10/10/2024 9:25 AM EST Urgent appeal faxed. Will check back. Yee Jose PharmD Medication Therapy Disease Management ([facility]) Dermatology Clinical Pharmacist 10/10/2024, 9:26 AM * [...] Yee Jose PharmD Medication Therapy Disease Management ([facility]) Dermatology Clinical Pharmacist 10/10/2024, 8:32 AM * Telephone Encounter - Ilan Robison RPh - 10/07/2024 12:35 PM EST This message was not routed to anyone. Please submit what you can, thanks. Ilan Robison PharmD Medication Therapy Disease Management Dermatology/Rheumatology Clinical Pharmacist 10/07/2024, 12:35 PM * Telephone Encounter - Love Degroot OSA - 10/02/2024 9:00 AM EST [facility] will not allow me to submit medical literature, file size is too large.It will allow me to submit the first PDF that was sent in the email. Please advise. Thanks Love Degroot Medication Paper Inspector [facility] [phone] 10/02/2024,9:01 AM * Telephone Encounter - Trena Tate RPh - 10/01/2024 8:16 AM EST [facility] Dermatology Pre-cert Request Please see Dermatology pre-cert request - route referral message with approval, denial or questionsback to "Dermatology Pharmacist Alfonzo [[id number]]". - Please submit with emailed literature - [...] of Care: specialty medication - route to [facility]. Referral to pharmacist for: Pharmacist Co-management See [...] 3:00 PM EDT Office Visit [facility] [address] [place] [address] Nel Ash DO [address] [place] [address] Health Maintenance Due Date Last Done Comments [...] Monitoring 06/22/2024 06/22/2023 CKD PHOS USE SMARTSET 20402 11/14/2024 03/0 03/2024, 02/22/2023, 11/22/2022, Additional history exists Diabetic Eye Exam 01/23/2025 01/24/2024, , 07/25/2021, Additional history exists HbA1c 04/22/2025 10/23/2024, 03/0 03/2024, 02/22/2023, Additional history exists CKD HGB USE SMARTSET 76545 10/23/202510/23, 11/15/2023, 11/22/2022, Additional history exists O2 ASSESSMENT COMPLETED IN PAST YEAR FOR COPD 10/23/2025 10/23/2024 DTap/Tdap Vaccines (2 - Td or Tdap) 02/13/2027 02/13/2017, 09/27/2007 Pneumococcal Vaccine: 50+ Years Completed 09/30/2014, 05/11/2005 Zoster Vaccines Completed 06/05/2019, 02/08, 06/20/2007 VITAMIN D LEVEL ONCE IN A LIFETIME-USE SMARTSET# [id number] Completed 05/25/2020, 07/16/2018, 02/11/2018, Additional history exists [...] Pemphigoid documented in this encounter Care Teams Microcomputer Support Specialist Relationship Specialty Start Date End Date Bandar Nieves III, MD [address] [facility] [place] [address] PCP - General 10/25/00 documented as of this encounter
[2024-10-25 08:01] LABS: Hematocrit (blood only) 47.1 % (37.0-47.0); Hemoglobin 14.9 g/dl (12.0-16.0); Mean Corpuscular Hemoglobin 30.7 pg (25.0-34.0); Mean Corpuscular Hgb Conc 31.6 g/dL (32.0-36.0); Mean Corpuscular Volume 97.1 fL (80.0-100.0); Mean Platelet Volume 9.4 fL (9.4-12.4); Platelet Count 196 K/uL (130-400); RDW Coefficient of Variation 15.2 % (11.5-14.5); RDW Standard Deviation 53.5 fL (36.4-46.3); Red Blood Count 4.85 M/uL (4.20-5.40); White Blood Count 11.78 K/ul (4.8-10.8)
[2024-10-25] MEDS: ASPIRIN 81 MG ECTAB PO SCH (08:17)
[2024-10-25] MEDS: predniSONE 20 MG TAB PO SCH (08:18)
[2024-10-25] MEDS: CEROVITE ADV FORMULA TAB PO SCH (08:18)
[2024-10-25] MEDS: CYANOCOBALAMIN (B-12) 500 MCG TABLET PO SCH (08:18)
[2024-10-25] MEDS: CHOLECALCIFEROL 25 MCG (1000 UNITS) TAB PO SCH (08:18)
[2024-10-25] MEDS: DULoxetine HCL 30 MG CAP PO SCH (08:18)
[2024-10-25] MEDS: POTASSIUM ACETATE/NSS 10 MEQ/105 ML BAG IV SCH (08:19)
[2024-10-25] MEDS: DEXTROSE 5% 1,000 ML IV SCH (08:19)
[2024-10-25] MEDS: cefTRIAXone SODIUM 1,000 MG/50 ML BAG IV SCH (08:20)
[2024-10-25 08:21] LABS: BUN Creatinine Ratio 46.9 (10-20); Calcium 9.5 mg/dl (8.6-10.3); Creatinine Clr Calc Pharmacy 20.2 ml/min; Potassium 3.8 mmol/L (3.5-5.1)
[2024-10-25] MEDS: UMECLIDINIUM/VILANTEROL 62.5/25MCG 7 PUFFS/INHALER INH SCH (08:21)
[2024-10-25] MEDS ORDERED: MULTIVITAMIN TAB PO SCH (09:00)
--- NOTE | 2024-10-25 10:23 | Nephrology Consultation ---
Date of Consultation October 25, 2024 Assessment & Plan (1) АННА (acute kidney injury): Acute kidney injury due to ischemic ATN in setting of bullous pemphigoid and poor p.o. intake for several days. Admission creatinine of 2.4. Creatinine slightly down to 2. Patient is incontinent of urine. -Will continue to monitor renal function with daily BMP. -Continue D5 water at 100 mL/h. -Monitor input output. Place Farris catheter. (2) Hypernatremia: Admission sodium of 152 downtrending to 150 today. Continue D5 water to 100 daily. (3) Bullous pemphigoid: Continue prednisone 40 mg daily. Patient needs oral suction q2-4hrs History of Present Illness Attending Physician: Bernarda Steven MD History of Present Illness This is an 84yo F with a PMH of CAD, DM II, COPD, CKD III, anxiety, SILVIA, history of tobacco, bullous pemphigoid diagnosed last month and CKD stage 3 with baseline cr 1.2 in 2021 who was sent to ED by PCP with АННА cr 2.4, sodium 152 and calcium of 10.9. sister in law/AGNES Ayala at bedside and provided some of the history. Was diagnosed with bullous pemphigoid in September and had blisters all over body extending to mouth and throat. Was tolerating pureed foods until 5 days ago but with increased mucous production she has not been able to tolerate much PO, which prompted visit to PCP. Chest x-ray shows cardiomegaly but no pulmonary edema. Patient is incontinent of urine. She is receiving D5 water at 100 mL/h. She continues to have significant amount of secretions in the oral cavity and requiring frequent suction. No leg swelling. No SOB. main complaint is ulcers in the mouth and all over the skin. Allergies Allergy/AdvReac Type Severity Reaction Status Date / Time Penicillins Allergy Mild Rash Verified 11/02/21 08:27 Home Medications Medication Instructions Recorded Confirmed Type aspirin 81 mg tablet,delayed 81 mg PO QAM 02/10/19 10/24/24 History release cholecalciferol (vitamin D3) 50 2,000 unit PO QAM 02/10/19 10/24/24 History mcg (2,000 unit) tablet (Vitamin D3) multivitamin 1 tab PO QAM 02/10/19 10/24/24 History albuterol sulfate 90 mcg/actuation 2 puff inhalation Q6H PRN 06/06/19 10/24/24 History aerosol inhaler (ProAir HFA) Shortness Of Breath vitamins A,C,S-zugo-gwniaa 2,148 1 tab PO QAM 06/06/19 10/24/24 History mcg-113 mg-45 mg-17.4 mg tablet (PreserVision AREDS) omeprazole 40 mg capsule,delayed 40 mg PO BID #180 caps 01/19/21 10/24/24 Rx release mirtazapine 15 mg tablet 22.5 mg PO HS 10/26/21 10/24/24 History buspirone 10 mg tablet 10 mg PO BID 04/05/22 10/24/24 History ferrous sulfate 325 mg (65 mg 325 mg PO BID 04/05/22 10/24/24 History iron) tablet acetaminophen 650 mg 650 mg PO UD 10/24/24 10/24/24 History tablet,extended release (Arthritis Pain Relief (acetaminophen) ER) alprazolam 0.25 mg tablet 0.25 mg PO BID PRN Anxiety 10/24/24 10/24/24 History cetirizine 10 mg tablet 10 mg PO BID 10/24/24 10/24/24 History clobetasol 0.05 % topical ointment 1 applic topical BID 10/24/24 10/24/24 History cyanocobalamin (vitamin B-12) 2,000 mcg PO DAILY 10/24/24 10/24/24 History 1,000 mcg capsule diphenhydramine HCl 25 mg capsule 25 mg PO HS PRN Itching 10/24/24 10/24/24 History (Benadryl) doxycycline monohydrate 100 mg 100 mg PO BID 10/24/24 10/24/24 History tablet duloxetine 30 mg capsule,delayed 30 mg PO DAILY 10/24/24 10/24/24 History release famotidine 20 mg tablet 20 mg PO BID 10/24/24 10/24/24 History gabapentin 100 mg capsule 100 mg PO TID 10/24/24 10/24/24 History meclizine 12.5 mg tablet 12.5 mg PO TID PRN Vertigo 10/24/24 10/24/24 History nystatin 100,000 unit/mL oral 1 ml PO QID 10/24/24 10/24/24 History suspension prednisone 20 mg tablet 40 mg PO DAILY 10/24/24 10/24/24 History tiotropium 2.5 mcg-olodaterol 2.5 2 puff inhalation DAILY 10/24/24 10/24/24 History mcg/actuation mist for inhalation (Stiolto Respimat) triamcinolone acetonide 0.1 % 1 applic topical BID 10/24/24 10/24/24 History topical ointment Patient History Medical History Cancer of left breast 2005--sx, chemo, radiation Myocardial Infarction 08/2017 "silent"--follows with Dr. Aguiar Surgical History History of esophagogastroduodenoscopy (EGD) last 01/2021 @ [facility] History of colonoscopy History of lumpectomy of left breast History of left breast biopsy malignant History of tooth extraction all teeth History of bilateral cataract extraction Family History Brother Family hx of colon cancer Other No family history of adverse response to anesthesia Social History Smoking Status: Former smoker Tobacco Type: Cigarettes Cigarettes Per Day: 5 a day; Second Hand Exposure: No; Do You Dip or Chew Tobacco: No; Hx Alcohol Use: No Hx Substance Use: No Preferred Language: Nepalese Communication Ability: Impaired Bellman Required: No Beliefs That Will Affect Care: None Current Living Situation: Alone and Other Current Living Situation Comment: live in caregivers Feels Safe at Home: Yes Safety Concerns: Feels Safe At This Time Assistive Devices: Glasses Review of Systems 2 Review of Systems: All other systems were reviewed and negative except as noted in HPI Physical Exam 2 Physical Exam: General exam: Appears comfortable, no acute distress HEENT: Pupils are equal and reactive to light, secretions in mouth Neck: No JVD, neck is supple trachea is midline Respiratory system: Clear breath sounds bilaterally. Gastrointestinal: Abdomen is soft, non distended, non tender, bowel sounds are present CVS: Regular rate and rhythm. No murmurs, rubs or gallops Musculoskeletal: No joint or muscle tenderness Extremities: Non tender, no edema, peripheral pulses are present Neuro: Oriented, no tremors, no focal neurological deficits Skin: Bullae allover the body Results & Data Vital Signs (Past 12 Hours) Vital Signs Temp Pulse Pulse Resp BP Pulse Ox O2 Del Method 10/25/24 09:55 Room Air 10/25/24 07:54 36.4 C L 105 H 159/74 H 94 Room Air 10/25/24 07:26 103 H 10/25/24 03:28 36.6 C 102 H 16 115/88 94 Room Air 10/24/24 23:08 Room Air 10/24/24 23:08 36.6 C 25 H 109/84 95 Room Air Laboratory Results 10/25/24 07:37 10/24/24 10/25/24 14:50 07:37 WBC 14.39 H 11.78 H RBC 5.51 H 4.85 MCV 94.9 97.1 MCH 30.3 30.7 MCHC 31.9 L 31.6 L RDW Std Deviation 52.0 H 53.5 H RDW Coeff of Thierry 15.3 H 15.2 H Plt Count 244 196 MPV 9.4 9.4 Albumin 3.6
[2024-10-25] MEDS ORDERED: Nursing to Pharmacy Communication SCH (12:00)
[2024-10-25 12:10] LABS: Appearance Urine Clear (Clear); Bacteria Urine Automated 2+ (None Seen); Bilirubin Urine Negative (Negative); Blood Urine Negative (Negative); Color Urine Yellow; Epithelial Cell Urine Auto 0-2 /hpf (0-2); Glucose Urine UA Negative (Negative); Granular Casts Urine Present /lpf (None Prsent); Ketones Urine Negative (Negative); Leukocyte Esterase Urine Trace (Negative); Mucus Urine Present (None Prsent); Nitrite Urine Negative (Negative); Protein Urine Trace (Negative); RBC Urine Automated 0-2 /hpf (0-2); Specific Gravity Urine 1.023 (1.000-1.030); Urobilinogen Urine Negative (Negative); WBC Urine Automated 0-5 /hpf (0-5)
[2024-10-25] MEDS ORDERED: methylPREDNISolone 1000 MG/16 ML IV SCH ×2 (13:30→13:45)
[2024-10-25] MEDS ORDERED: methylPREDNISolone 20 MG in SYRINGE 0 ML IV SCH (14:00)
[2024-10-25] MEDS: FAMOTIDINE 20MG IV PUSH 20 MG/5 ML SYR IV SCH (14:35)
[2024-10-25] MEDS: methylPREDNISolone 40 MG in SYRINGE 0 ML IV SCH (14:35)
--- NOTE | 2024-10-25 14:54 | Hospitalist Progress Note ---
Date of Service October 25, 2024 Assessment & Plan (1) Sepsis: (2) Bullous pemphigoid: (3) АННА (acute kidney injury): (4) Hypernatremia: (5) Elevated lactic acid level: (6) Elevated troponin: (7) Diabetes mellitus, type II: (8) Anxiety: (9) Depression: Plan 84 year old woman with a PMH of CAD, DM II, COPD, CKD III, anxiety, SILVIA, history of tobacco, bullous pemphigoid diagnosed last month who was called by PCP to come to ER for abnormal labs CXR noted cardiomegaly without pulm edema. Right hemidiaphragmatic elevation with right basilar densities likely atelectatic Labs notable for leukocytosis of 14.39, Hb of 16.7, HCt 52.3, Na of 152, Cl 114 Cr 2.43, Ca 10.9, trop 59.6. Lactate improved from 2.5 to 1.4 On admission, she had tachycardia, leukocytosis and lactate of 2.5; hence meets SIRS criteria Hence Sepsis is possible though these could also be from dehydration based on history, exam and findings (including increased Hb/Hct above patient's normal suggestive of hemoconcentration) Has history of aspiration Possible aspiration pneumonia/pneumonitis Continue ceftriaxone, doxycycline and flagyl Will follow up infectious workup MANAGEMENT LECTURER eval noted Continue pureed diet Na 153 last evening, now 150 this AM Got IVF NSS bolus in ER Currently on D5W. Increased to 100cc/h Monitor BMP/sodium and adjust fluid/rate as needed Has acute kidney injury Cr is 1.96 this AM Nephrology consulted. Recs noted Elevated trops may be due to demand No new ST changes. Denied chest pain/SOB Trop 59->35 Home prednisone changed to IV solumedrol Other home meds such as PPI changed to IV meds due to patient not taking po meds well this AM Code status: DNR Updated POA (sister in law Pura) at bedside I spent a total of 50 minutes coordinating, documenting and providing care for this patient excluding time spent in performance of separately billed services Admission and Anticipated Discharge Date Admission Date: October 24, 2024 Subjective Patient seen and examined Alert and oriented to person and place Poor historian Reports body pains Has not been taking much po. However, denied odynophagia Still has some cough. Denied any chest pain,SOB, nausea, vomiting, diarrhea or any other complaints Physical Exam Constitutional: no acute distress Eyes: PERRL, conjunctivae normal, anicteric sclerae ENMT: Sores around the mouth Respiratory: normal respiratory effort, lungs clear to auscultation Cardiovascular: Rate/Rhythm: regular rate and regular rhythm Gastrointestinal (Abdomen): normal bowel sounds, soft, nontender, no hepatosplenomegaly Musculoskeletal: No pedal edema Skin: Lesions in different stages of healing on trunk and extremities Neurologic: PERRL, EOMI, accommodation nl, no face palsy, no dysarthria Psychiatric: Orientation: alert Oriented to person and place Results & Data Results & Data Vital Signs (Past 12 Hours) Vital Signs Temp Pulse Pulse Resp BP Pulse Ox O2 Del Method 10/25/24 13:56 104 H 10/25/24 10:54 36.5 C 100 H 108/76 95 Room Air 10/25/24 09:55 Room Air 10/25/24 07:54 36.4 C L 105 H 159/74 H 94 Room Air 10/25/24 07:26 103 H 10/25/24 03:28 36.6 C 102 H 16 115/88 94 Room Air Laboratory Results Abnormal lab results 10/24/24 10/24/24 10/24/24 Range/Units 14:50 17:03 20:48 WBC (4.8-10.8) K/ul Hct (37.0-47.0) % MCHC (32.0-36.0) g/dL RDW Std Deviation (36.4-46.3) fL RDW Coeff of Thierry (11.5-14.5) % PT 12.9 H (9.0-12.0) Seconds INR 1.2 H (0.9-1.1) Sodium 152 H 153 H (136-145) mmol/L Potassium 2.9 L D (3.5-5.1) mmol/L Chloride 114 H 129 H (98-107) mmol/L Carbon Dioxide 15 L (21-32) mmol/L Anion Gap 13 H (3-11) BUN 103 H 72 H D (6-23) mg/dl Creatinine 2.43 H 1.44 H D (0.6-1.2) mg/dl BUN/Creatinine Ratio 42.4 H 50.0 H (10-20) Glucose 167 H 118 H (70-99(Fasting)) mg/dl POC Glucose 151 H (70-99) mg/dl Calcium 10.9 H 6.1 L D (8.6-10.3) mg/dl Magnesium 2.6 H (1.7-2.4) mg/dl Troponin I High Sens 59.6 H* 35.9 H D (0-14) pg/ml Urine Protein (Negative) Ur Leukocyte Esterase (Negative) U Hyaline Cast (Auto) (0-2) /lpf Urine Bacteria (Auto) (None Seen) Granular Casts (None Prsent) /lpf Urine Mucus (None Prsent) 10/24/24 10/25/24 10/25/24 Range/Units 23:57 05:58 07:37 WBC 11.78 H (4.8-10.8) K/ul Hct 47.1 H (37.0-47.0) % MCHC 31.6 L (32.0-36.0) g/dL RDW Std Deviation 53.5 H (36.4-46.3) fL RDW Coeff of Thierry 15.2 H (11.5-14.5) % PT (9.0-12.0) Seconds INR (0.9-1.1) Sodium 150 H (136-145) mmol/L Potassium (3.5-5.1) mmol/L Chloride 119 H (98-107) mmol/L Carbon Dioxide (21-32) mmol/L Anion Gap (3-11) BUN 92 H D (6-23) mg/dl Creatinine 1.96 H D (0.6-1.2) mg/dl BUN/Creatinine Ratio 46.9 H (10-20) Glucose 175 H (70-99(Fasting)) mg/dl POC Glucose 175 H 157 H (70-99) mg/dl Calcium (8.6-10.3) mg/dl Magnesium (1.7-2.4) mg/dl Troponin I High Sens (0-14) pg/ml Urine Protein (Negative) Ur Leukocyte Esterase (Negative) U Hyaline Cast (Auto) (0-2) /lpf Urine Bacteria (Auto) (None Seen) Granular Casts (None Prsent) /lpf Urine Mucus (None Prsent) 02/15/25 02/15/25 Range/Units 10:56 11:05 WBC (4.8-10.8) K/ul Hct (37.0-47.0) % MCHC (32.0-36.0) g/dL RDW Std Deviation (36.4-46.3) fL RDW Coeff of Thierry (11.5-14.5) % PT (9.0-12.0) Seconds INR (0.9-1.1) Sodium (136-145) mmol/L Potassium (3.5-5.1) mmol/L Chloride (98-107) mmol/L Carbon Dioxide (21-32) mmol/L Anion Gap (3-11) BUN (6-23) mg/dl Creatinine (0.6-1.2) mg/dl BUN/Creatinine Ratio (10-20) Glucose (70-99(Fasting)) mg/dl POC Glucose 145 H (70-99) mg/dl Calcium (8.6-10.3) mg/dl Magnesium (1.7-2.4) mg/dl Troponin I High Sens (0-14) pg/ml Urine Protein Trace H (Negative) Ur Leukocyte Esterase Trace H (Negative) U Hyaline Cast (Auto) 6-10 H (0-2) /lpf Urine Bacteria (Auto) 2+ H (None Seen) Granular Casts Present A (None Prsent) /lpf Urine Mucus Present A (None Prsent)
[2024-10-25 16:23] LABS: Calcium 9.3 mg/dl (8.6-10.3); Potassium 4.4 mmol/L (3.5-5.1)
[2024-10-25 16:29] LABS: BUN Creatinine Ratio 46.6 (10-20); Creatinine Clr Calc Pharmacy 22.5 ml/min
[2024-10-25] MEDS: PANTOprazole 40 MG/10 ML SYR IV SCH (21:19)
[2024-10-26 09:11] LABS: Hematocrit (blood only) 43.7 % (37.0-47.0); Hemoglobin 14.1 g/dl (12.0-16.0); Mean Corpuscular Hemoglobin 30.9 pg (25.0-34.0); Mean Corpuscular Hgb Conc 32.3 g/dL (32.0-36.0); Mean Corpuscular Volume 95.8 fL (80.0-100.0); Mean Platelet Volume 9.9 fL (9.4-12.4); Nucleated RBC # (auto) 0.03 K/uL (0.00-0.12); Nucleated RBC % (auto) 0.2 %; Platelet Count 164 K/uL (130-400); RDW Coefficient of Variation 14.9 % (11.5-14.5); RDW Standard Deviation 52.2 fL (36.4-46.3); Red Blood Count 4.56 M/uL (4.20-5.40); White Blood Count 16.21 K/ul (4.8-10.8)
[2024-10-26 09:28] LABS: BUN Creatinine Ratio 43.9 (10-20); Calcium 9.4 mg/dl (8.6-10.3); Creatinine Clr Calc Pharmacy 24.2 ml/min; Phosphorus 3.2 mg/dl (2.5-4.9); Potassium 3.4 mmol/L (3.5-5.1)
--- NOTE | 2024-10-26 10:05 | Nephrology Progress Note ---
Date of Service October 26, 2024 Assessment & Plan (1) АННА (acute kidney injury): Plan: Acute kidney injury due to ischemic ATN in setting of bullous pemphigoid and poor p.o. intake for several days. Admission creatinine of 2.4. Creatinine slightly down to 1.64. Patient is making urine, has clark now. -Will continue to monitor renal function with daily BMP. -plasmalyte at 80 mL/h. -Monitor input output.. (2) Hypernatremia: Plan: Admission sodium of 152 downtrending to 142 today. stop D5 water and change to plasmalyte. (3) Bullous pemphigoid: Plan: Continue prednisone 40 mg daily. Patient needs oral suction prn Admission and Anticipated Discharge Date Admission Date: October 24, 2024 Subjective Seen for АННА. She feels better today. She is drinking water and orange juice. intermittently crying. less oral secretions cr down Review of Systems 2 Review of Systems: All other systems were reviewed and negative except as noted in HPI Physical Exam 2 Physical Exam: General exam: Appears comfortable, no acute distress HEENT: Pupils are equal and reactive to light, secretions in mouth Neck: No JVD, neck is supple trachea is midline Respiratory system: Clear breath sounds bilaterally. Gastrointestinal: Abdomen is soft, non distended, non tender, bowel sounds are present CVS: Regular rate and rhythm. No murmurs, rubs or gallops Musculoskeletal: No joint or muscle tenderness Extremities: Non tender, no edema, peripheral pulses are present Neuro: Oriented, no tremors, no focal neurological deficits Skin: Bullae allover the body Results & Data Vital Signs (Past 12 Hours) Vital Signs Temp Pulse Resp BP Pulse Ox O2 Del Method 10/26/24 07:29 36.4 C L 101 H 18 119/73 95 Room Air 10/26/24 03:05 36.9 C 103 H 16 112/70 97 Room Air 10/25/24 23:21 36.5 C 101 H 18 111/69 95 Room Air Laboratory Results 10/26/24 08:40 10/26/24 08:40 WBC 16.21 H RBC 4.56 MCV 95.8 MCH 30.9 MCHC 32.3 RDW Std Deviation 52.2 H RDW Coeff of Thierry 14.9 H Plt Count 164 MPV 9.9 Phosphorus 3.2
[2024-10-26] MEDS: DEXTROSE 5% 1,000 ML IV SCH (10:58)
[2024-10-26] MEDS: LACTATED RINGER'S 1,000 ML IV SCH (11:30)
--- NOTE | 2024-10-26 12:03 | Hospitalist Progress Note ---
Date of Service October 26, 2024 Assessment & Plan (1) Sepsis: (2) Bullous pemphigoid: (3) АННА (acute kidney injury): (4) Hypernatremia: (5) Elevated lactic acid level: (6) Elevated troponin: (7) Diabetes mellitus, type II: (8) Anxiety: (9) Depression: Plan 84 year old woman with a PMH of CAD, DM II, COPD, CKD III, anxiety, SILVIA, history of tobacco, bullous pemphigoid diagnosed last month who was called by PCP to come to ER for abnormal labs On admission, CXR noted cardiomegaly without pulm edema. Right hemidiaphragmatic elevation with right basilar densities likely atelectatic Labs notable for leukocytosis of 14.39, Hb of 16.7, HCt 52.3, Na of 152, Cl 114 Cr 2.43, Ca 10.9, trop 59.6. Lactate improved from 2.5 to 1.4 On admission, she had tachycardia, leukocytosis and lactate of 2.5; hence meets SIRS criteria Hence Sepsis is possible though these could also be from dehydration based on history, exam and findings (including increased Hb/Hct above patient's normal suggestive of hemoconcentration) Has history of aspiration Possible aspiration pneumonia/pneumonitis Continue ceftriaxone, doxycycline and flagyl Infectious negative so far Leukocytosis may be due to infection vs steroid MANAGER OUTPATIENT eval noted Continue pureed diet. Ok with more freq small meals if preferrable. Encourage po hydration Na down to 142 this AM IVF changed to LR per Nephro АННА improving. Cr down to 1.64 today Elevated trops may be due to demand No new ST changes. Denied chest pain/SOB Trop 59->35 Home prednisone changed to IV solumedrol Other home meds such as PPI changed to IV meds due to patient not taking po meds well this AM Code status: DNR Updated POA (sister in law Pura) at bedside I spent a total of 50 minutes coordinating, documenting and providing care for this patient excluding time spent in performance of separately billed services Admission and Anticipated Discharge Date Admission Date: October 24, 2024 Subjective Patient seen and examined Poor historian Still has poor oral intake. She denied odynophagia or pain in mouth Some body pains at sites of lesions Physical Exam Constitutional: no acute distress Eyes: PERRL, conjunctivae normal, anicteric sclerae ENMT: Sores around the mouth Respiratory: normal respiratory effort, lungs clear to auscultation Cardiovascular: Rate/Rhythm: regular rate and regular rhythm Gastrointestinal (Abdomen): normal bowel sounds, soft, nontender, no hepatosplenomegaly Skin: Lesions in different stages of healing on trunk and extremities Neurologic: PERRL, EOMI, accommodation nl, no face palsy, no dysarthria Psychiatric: Orientation: alert Oriented to person only. Cooperative Genitourinary: Farris in situ Results & Data Results & Data Vital Signs (Past 12 Hours) Vital Signs Temp Pulse Resp BP Pulse Ox O2 Del Method 10/26/24 08:00 Room Air 10/26/24 07:29 36.4 C L 101 H 18 119/73 95 Room Air 10/26/24 03:05 36.9 C 103 H 16 112/70 97 Room Air Laboratory Results Abnormal lab results 10/25/24 10/25/24 10/25/24 Range/Units 11:05 15:39 16:59 WBC (4.8-10.8) K/ul RDW Std Deviation (36.4-46.3) fL RDW Coeff of Thierry (11.5-14.5) % Sodium 147 H (136-145) mmol/L Potassium (3.5-5.1) mmol/L Chloride 118 H (98-107) mmol/L Carbon Dioxide 19 L (21-32) mmol/L BUN 82 H (6-23) mg/dl Creatinine 1.76 H (0.6-1.2) mg/dl BUN/Creatinine Ratio 46.6 H (10-20) Glucose 200 H (70-99(Fasting)) mg/dl POC Glucose 192 H (70-99) mg/dl Urine Protein Trace H (Negative) Ur Leukocyte Esterase Trace H (Negative) U Hyaline Cast (Auto) 6-10 H (0-2) /lpf Urine Bacteria (Auto) 2+ H (None Seen) Granular Casts Present A (None Prsent) /lpf Urine Mucus Present A (None Prsent) 10/25/24 10/26/24 10/26/24 Range/Units 19:47 07:13 08:40 WBC 16.21 H (4.8-10.8) K/ul RDW Std Deviation 52.2 H (36.4-46.3) fL RDW Coeff of Thierry 14.9 H (11.5-14.5) % Sodium (136-145) mmol/L Potassium 3.4 L D (3.5-5.1) mmol/L Chloride 112 H (98-107) mmol/L Carbon Dioxide (21-32) mmol/L BUN 72 H (6-23) mg/dl Creatinine 1.64 H (0.6-1.2) mg/dl BUN/Creatinine Ratio 43.9 H (10-20) Glucose 166 H (70-99(Fasting)) mg/dl POC Glucose 166 H 149 H (70-99) mg/dl Urine Protein (Negative) Ur Leukocyte Esterase (Negative) U Hyaline Cast (Auto) (0-2) /lpf Urine Bacteria (Auto) (None Seen) Granular Casts (None Prsent) /lpf Urine Mucus (None Prsent) 10/26/24 Range/Units 11:21 WBC (4.8-10.8) K/ul RDW Std Deviation (36.4-46.3) fL RDW Coeff of Thierry (11.5-14.5) % Sodium (136-145) mmol/L Potassium (3.5-5.1) mmol/L Chloride (98-107) mmol/L Carbon Dioxide (21-32) mmol/L BUN (6-23) mg/dl Creatinine (0.6-1.2) mg/dl BUN/Creatinine Ratio (10-20) Glucose (70-99(Fasting)) mg/dl POC Glucose 113 H (70-99) mg/dl Urine Protein (Negative) Ur Leukocyte Esterase (Negative) U Hyaline Cast (Auto) (0-2) /lpf Urine Bacteria (Auto) (None Seen) Granular Casts (None Prsent) /lpf Urine Mucus (None Prsent)
[2024-10-26] MEDS: MELATONIN 3 MG TAB PO SCH (19:42)
--- NOTE | 2024-10-27 09:36 | Nephrology Progress Note ---
Date of Service October 27, 2024 Assessment & Plan Admission and Anticipated Discharge Date Admission Date: October 24, 2024 Subjective Assessment & Plan (1) АННА (acute kidney injury): Plan: Acute kidney injury due to ischemic ATN in setting of bullous pemphigoid and poor p.o. intake for several days. Admission creatinine of 2.4. Creatinine slightly down to 1.64. Patient is making urine, has clark now. Will continue to monitor renal function with daily BMP. IVF changes to be made as necessary after Lab results back from today Monitor input output.. (2) Hypernatremia: Plan: Admission sodium of 152 downtrending to 142 today. IVF after (3) Bullous pemphigoid: Plan: Continue prednisone 40 mg daily. Patient needs oral suction prn Subjective Seen for АННА. She feels better today. Not very interactive. Not eating/Drinking. Review of Systems Review of Systems: All other systems were reviewed and negative except as noted in HPI Physical Exam Physical Exam: General exam: Appears comfortable, no acute distress HEENT: Pupils are equal and reactive to light, secretions in mouth Neck: No JVD, neck is supple trachea is midline Respiratory system: Clear breath sounds bilaterally. Gastrointestinal: Abdomen is soft, non distended, non tender, bowel sounds are present CVS: Regular rate and rhythm. No murmurs, rubs or gallops Musculoskeletal: No joint or muscle tenderness Extremities: Non tender, no edema, peripheral pulses are present Neuro: Oriented, no tremors, no focal neurological deficits Skin: Bullae allover the body Results & Data Vital Signs (Past 12 Hours) Vital Signs Temp Pulse Pulse Resp BP Pulse Ox O2 Del Method 10/27/24 07:13 36.3 C L 96 H 17 130/88 97 Room Air 10/27/24 02:46 36.9 C 104 H 16 115/74 95 Room Air 10/26/24 23:33 36.8 C 101 H 16 120/62 95 Room Air 10/26/24 21:51 113 H
--- NOTE | 2024-10-27 09:51 | Hospitalist Progress Note ---
Date of Service October 27, 2024 Assessment & Plan (1) Sepsis: (2) Bullous pemphigoid: (3) АННА (acute kidney injury): (4) Hypernatremia: (5) Elevated lactic acid level: (6) Elevated troponin: (7) Diabetes mellitus, type II: (8) Anxiety: (9) Depression: Plan 84 year old woman with a PMH of CAD, DM II, COPD, CKD III, anxiety, SILVIA, history of tobacco, bullous pemphigoid diagnosed last month who was called by PCP to come to ER for abnormal labs On admission, CXR noted cardiomegaly without pulm edema. Right hemidiaphragmatic elevation with right basilar densities likely atelectatic Labs notable for leukocytosis of 14.39, Hb of 16.7, HCt 52.3, Na of 152, Cl 114 Cr 2.43, Ca 10.9, trop 59.6. 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 Ok with more freq small meals if preferrable. Continue to encourage po hydration KUB did not show any acute abnormalities Though patient denies odynophagia. Poor intake may be due to bullous pemphigoid Will appreciate ENT eval Planned for video study Cepacol lozenchristianne Still awaiting labs this AM Nephro on board Elevated trops may be due to demand No new ST changes. Denied chest pain/SOB Trop 59->35 Home prednisone changed to IV solumedrol Other home meds such as PPI changed to IV meds due to patient not taking po meds well Code status: DNR I called POA and updated her. She reported that based on patient's living will, she does not want a feeding tube I spent a total of 50 minutes coordinating, documenting and providing care for this patient excluding time spent in performance of separately billed services Admission and Anticipated Discharge Date Admission Date: October 24, 2024 Subjective Patient seen and examined Per caregiver and RN, patient still barely takes enough po fluids/food/meds Patient acknowledged sore throat Caregiver reported patient reported some abd pain earlier but not now No other complaints Physical Exam Constitutional: no acute distress Eyes: PERRL, conjunctivae normal, anicteric sclerae ENMT: Sores around mouth Respiratory: normal respiratory effort, lungs clear to auscultation Cardiovascular: Rate/Rhythm: regular rate and regular rhythm Gastrointestinal (Abdomen): normal bowel sounds, soft, nontender, no hepatosplenomegaly Skin: Lesions in different stages of healing on trunk and extremities Neurologic: PERRL, EOMI, accommodation nl, no face palsy, no dysarthria Psychiatric: Orientation: alert Oriented to person and place Results & Data Results & Data Vital Signs (Past 12 Hours) Vital Signs Temp Pulse Pulse Resp BP Pulse Ox O2 Del Method 10/27/24 07:13 36.3 C L 96 H 17 130/88 97 Room Air 10/27/24 02:46 36.9 C 104 H 16 115/74 95 Room Air 10/26/24 23:33 36.8 C 101 H 16 120/62 95 Room Air 10/26/24 21:51 113 H Laboratory Results Abnormal lab results 10/26/24 10/26/24 10/26/24 Range/Units 11:21 14:48 16:10 POC Glucose 113 H 122 H 154 H (70-99) mg/dl 10/26/24 Range/Units 19:43 POC Glucose 141 H (70-99) mg/dl
--- NOTE | 2024-10-27 10:49 | XRay Report ---
KUB HISTORY: Abdominal pain COMPARISON STUDY: 12/07/2020 FINDINGS: A KUB is unchanged. The bowel gas pattern is nonspecific. There is no evidence of bowel obs truction. The properitoneal fat lines are maintained. Pelvic calcifications are once again noted cons istent with fibroids. There is multilevel degenerative change in the lumbar spine. IMPRESSION: No acute findings identified. ACT 112: Negative or not required by law. The above report was generated using voice recognition software. It may contain grammatical, syntax o r spelling errors. Electronically signed by: Elli Hudson M.D. 10/27/2024 10:47 AM
[2024-10-27] MEDS: COUGH DROP (SUGAR FREE) LOZ 24 LOZ/1 BOX BUCCAL PRN (11:32)
[2024-10-27 15:37] LABS: Calcium 9.2 mg/dl (8.6-10.3); Magnesium 1.9 mg/dl (1.7-2.4); Potassium 4.2 mmol/L (3.5-5.1)
[2024-10-27 15:42] LABS: BUN Creatinine Ratio 37.8 (10-20); Creatinine Clr Calc Pharmacy 26.8 ml/min; Phosphorus 3.6 mg/dl (2.5-4.9)
[2024-10-27 15:59] LABS: Basophils # (auto) 0.08 K/uL (0.00-0.20); Basophils % (auto) 0.6 %; Hematocrit (blood only) 45.9 % (37.0-47.0); Immature Granulocytes # (auto) 0.59 K/uL (0.01-0.20); Immature Granulocytes % (auto) 4.2 %; Lymphocytes # (auto) 0.63 K/uL (1.20-3.40); Lymphocytes % (auto) 4.5 %; Mean Corpuscular Hemoglobin 30.8 pg (25.0-34.0); Mean Corpuscular Hgb Conc 32.7 g/dL (32.0-36.0); Mean Corpuscular Volume 94.3 fL (80.0-100.0); Monocytes # (auto) 0.37 K/uL (0.11-0.59); Monocytes % (auto) 2.6 %; Neutrophils # (auto) 12.38 K/uL (1.40-6.50); Neutrophils % (auto) 88.1 %; Nucleated RBC # (auto) 0.03 K/uL (0.00-0.12); Nucleated RBC % (auto) 0.2 %; Platelet Count 113 K/uL (130-400); RDW Coefficient of Variation 15.1 % (11.5-14.5); RDW Standard Deviation 51.5 fL (36.4-46.3); Red Blood Count 4.87 M/uL (4.20-5.40); White Blood Count 14.05 K/ul (4.8-10.8)
[2024-10-27] MEDS: D5W AND 1/2NSS 1,000 ML IV SCH (17:01)
[2024-10-27] MEDS ORDERED: PANTOprazole 40 MG TAB PO SCH (21:00)
[2024-10-27] MEDS: FAMOTIDINE 20 MG TAB PO SCH (22:12)
[2024-10-27] MEDS: PANTOprazole 40 MG/10 ML SYR IV SCH (22:15)
[2024-10-27] MEDS: ACETAMINOPHEN 1,000 MG/100 ML VIAL IV PRN (23:30)
[2024-10-28] MEDS: HYDROmorphone INJ 0.5 MG/0.5 ML SYR IV STA (04:07)
[2024-10-28 06:27] LABS: Hematocrit (blood only) 39.9 % (37.0-47.0); Hemoglobin 12.6 g/dl (12.0-16.0); Mean Corpuscular Hemoglobin 30.7 pg (25.0-34.0); Mean Corpuscular Hgb Conc 31.6 g/dL (32.0-36.0); Mean Corpuscular Volume 97.1 fL (80.0-100.0); Mean Platelet Volume 10.4 fL (9.4-12.4); Platelet Count 126 K/uL (130-400); RDW Coefficient of Variation 15.4 % (11.5-14.5); RDW Standard Deviation 54.2 fL (36.4-46.3); Red Blood Count 4.11 M/uL (4.20-5.40); White Blood Count 15.94 K/ul (4.8-10.8)
[2024-10-28 07:03] LABS: BUN Creatinine Ratio 38.5 (10-20); Calcium 8.4 mg/dl (8.6-10.3); Creatinine Clr Calc Pharmacy 29.3 ml/min; Magnesium 1.9 mg/dl (1.7-2.4); Phosphorus 3.3 mg/dl (2.5-4.9); Potassium 3.2 mmol/L (3.5-5.1)
[2024-10-28] MEDS: POTASSIUM ACETATE/NSS 10 MEQ/105 ML BAG IV SCH (09:05)
--- NOTE | 2024-10-28 10:03 | Nephrology Progress Note ---
Date of Service October 28, 2024 Assessment & Plan Admission and Anticipated Discharge Date Admission Date: October 24, 2024 Subjective Assessment & Plan (1) АННА (acute kidney injury): Plan: Acute kidney injury due to ischemic ATN in setting of bullous pemphigoid and poor p.o. intake for several days. Admission creatinine of 2.4. Creatinine slightly down to 1.64. Patient is making urine, has clark now. Will continue to monitor renal function with daily BMP. Improving with ivf. Monitor input output. (2) Hypernatremia: Plan: Admission sodium of 152 downtrending to 146 today. Still not eating and drinking. Na still 146 so will d/c d51/2ns and give straight d5w at 80 /hr. K is low and will drop further with d5w so add kcl 40 bid. (3) Bullous pemphigoid: Plan: Continue prednisone 40 mg daily. Patient needs oral suction prn Subjective Seen for АННА. Not very interactive. Not eating/Drinking. Review of Systems Review of Systems: All other systems were reviewed and negative except as noted in HPI Physical Exam Physical Exam: General exam: Appears comfortable, no acute distress HEENT: Pupils are equal and reactive to light, secretions in mouth Neck: No JVD, neck is supple trachea is midline Respiratory system: Clear breath sounds bilaterally. Gastrointestinal: Abdomen is soft, non distended, non tender, bowel sounds are present CVS: Regular rate and rhythm. No murmurs, rubs or gallops Musculoskeletal: No joint or muscle tenderness Extremities: Non tender, no edema, peripheral pulses are present Neuro: Oriented, no tremors, no focal neurological deficits Skin: Bullae allover the body Results & Data Vital Signs (Past 12 Hours) Vital Signs Temp Pulse Pulse Resp BP Pulse Ox O2 Del Method 10/28/24 07:53 Room Air 10/28/24 07:53 82 10/28/24 07:38 36.2 C L 74 16 117/77 94 Room Air 10/28/24 03:23 36.5 C 104 H 16 115/62 95 Room Air 10/27/24 23:35 36.6 C 83 16 118/83 94 Room Air
--- NOTE | 2024-10-28 10:43 | Hospitalist Progress Note ---
Date of Service October 28, 2024 Assessment & Plan (1) Sepsis: (2) Bullous pemphigoid: (3) АННА (acute kidney injury): (4) Hypernatremia: (5) Elevated lactic acid level: (6) Elevated troponin: (7) Diabetes mellitus, type II: (8) Anxiety: (9) Depression: Plan 84 year old woman with a PMH of CAD, DM II, COPD, CKD III, anxiety, SILVIA, history of tobacco, bullous pemphigoid diagnosed last month who was called by PCP to come to ER for abnormal labs On admission, CXR noted cardiomegaly without pulm edema. Right hemidiaphragmatic elevation with right basilar densities likely atelectatic Labs notable for leukocytosis of 14.39, Hb of 16.7, HCt 52.3, Na of 152, Cl 114 Cr 2.43, Ca 10.9, trop 59.6. Lactate improved from 2.5 to 1.4 On admission, she had tachycardia, leukocytosis and lactate of 2.5; hence meets SIRS criteria Hence Sepsis is possible though these could also be from dehydration based on history, exam and findings (including increased Hb/Hct above patient's normal suggestive of hemoconcentration) Has history of aspiration Possible aspiration pneumonia/pneumonitis Possible Urinary tract infection Infectious negative so far Leukocytosis may be due to infection vs steroid Currently on ceftriaxone, doxycycline and flagyl With UCx growing ESBL and clinical status, will switch ceftriaxone/flagyl to ertapenem for now and monitor [employer]LE[employer]ICATION[employer] TECH[employer]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 Denied chest pain/SOB Trop 59->35 Home prednisone changed to IV solumedrol Other home meds such as PPI changed to IV meds due to patient not taking po meds well Code status: DNR POA reported that based on patient's living will, she does not want a feeding tube May need Palliative care for GOC Called POA and updated her I spent a total of 50 minutes coordinating, documenting and providing care for this patient excluding time spent in performance of separately billed services Admission and Anticipated Discharge Date Admission Date: October 24, 2024 Subjective Patient seen and examined Patient still declining food and drinks. She is alert and oriented to person and place but seem confused today She declined oral exam today She reports her whole body is painful Physical Exam Constitutional: no acute distress Eyes: PERRL, conjunctivae normal, anicteric sclerae ENMT: Patient declined oropharyngeal exam this AM Respiratory: normal respiratory effort, lungs clear to auscultation Cardiovascular: Rate/Rhythm: regular rate and regular rhythm Gastrointestinal (Abdomen): normal bowel sounds, soft, nontender, no hepatosplenomegaly Musculoskeletal: No pedal edema Skin: Skin lesions healing Neurologic: PERRL, EOMI, accommodation nl, no face palsy, no dysarthria Psychiatric: Orientation: alert oriented to person and place. Confused Results & Data Results & Data Vital Signs (Past 12 Hours) Vital Signs Temp Pulse Pulse Resp BP Pulse Ox O2 Del Method 10/28/24 07:53 Room Air 10/28/24 07:53 82 10/28/24 07:38 36.2 C L 74 16 117/77 94 Room Air 10/28/24 03:23 36.5 C 104 H 16 115/62 95 Room Air 10/27/24 23:35 36.6 C 83 16 118/83 94 Room Air Laboratory Results Abnormal lab results 10/27/24 10/27/24 10/27/24 Range/Units 16:11 20:24 Unknown WBC 14.05 H (4.8-10.8) K/ul RBC (4.20-5.40) M/uL MCHC (32.0-36.0) g/dL RDW Std Deviation 51.5 H (36.4-46.3) fL RDW Coeff of Thierry 15.1 H (11.5-14.5) % Plt Count 113 L (130-400) K/uL Neut # (Auto) 12.38 H (1.40-6.50) K/uL Lymph # (Auto) 0.63 L (1.20-3.40) K/uL Immature Gran # (Auto) 0.59 H (0.01-0.20) K/uL Sodium 146 H (136-145) mmol/L Potassium (3.5-5.1) mmol/L Chloride 117 H (98-107) mmol/L Carbon Dioxide 19 L (21-32) mmol/L BUN 56 H (6-23) mg/dl Creatinine 1.48 H (0.6-1.2) mg/dl BUN/Creatinine Ratio 37.8 H (10-20) Glucose 132 H (70-99(Fasting)) mg/dl POC Glucose 122 H 145 H (70-99) mg/dl Calcium (8.6-10.3) mg/dl 10/28/24 10/28/24 Range/Units 05:45 07:33 WBC 15.94 H (4.8-10.8) K/ul RBC 4.11 L (4.20-5.40) M/uL MCHC 31.6 L (32.0-36.0) g/dL RDW Std Deviation 54.2 H (36.4-46.3) fL RDW Coeff of Thierry 15.4 H (11.5-14.5) % Plt Count 126 L (130-400) K/uL Neut # (Auto) (1.40-6.50) K/uL Lymph # (Auto) (1.20-3.40) K/uL Immature Gran # (Auto) (0.01-0.20) K/uL Sodium 146 H (136-145) mmol/L Potassium 3.2 L D (3.5-5.1) mmol/L Chloride 118 H (98-107) mmol/L Carbon Dioxide (21-32) mmol/L BUN 52 H (6-23) mg/dl Creatinine 1.35 H (0.6-1.2) mg/dl BUN/Creatinine Ratio 38.5 H (10-20) Glucose 166 H (70-99(Fasting)) mg/dl POC Glucose 140 H (70-99) mg/dl Calcium 8.4 L (8.6-10.3) mg/dl
[2024-10-28] MEDS: POTASSIUM CHLORIDE CRTAB 20 MEQ TABCR PO SCH (11:37)
--- NOTE | 2024-10-28 12:39 | ENT Consultation ---
Date of Consultation October 28, 2024 Assessment & Plan (1) Dysphagia: Plan no evidence of bullous pemphigoid in the pharynx or larynx. Patient has a significant amount of secretion which is almost certainly primary reason or at least a major contributor to her dysphagia. Defer to primary team and speech language pathology for further evaluation and management. No further ENT intervention needed at this time. History of Present Illness Reason for Consultation: Dysphagia Attending Physician: Bernarda Steven MD History of Present Illness 84-year-old female admitted for possible sepsis and inadequate p.o. intake. Has a history of bullous pemphigoid and primary team was concerned this was related to her dysphagia. This has been a longstanding issue. She had a video swallow study back in 2022. I reviewed the report today which revealed moderate oropharyngeal dysphagia as well as esophageal dysfunction. Per review of primary team note and discussion with nursing patient essentially has inability to tolerate any p.o. intake. Allergies Allergy/AdvReac Type Severity Reaction Status Date / Time Penicillins Allergy Mild Rash Verified 11/02/21 08:27 Home Medications Medication Instructions Recorded Confirmed Type aspirin 81 mg tablet,delayed 81 mg PO QAM 02/10/19 10/24/24 History release cholecalciferol (vitamin D3) 50 2,000 unit PO QAM 02/10/19 10/24/24 History mcg (2,000 unit) tablet (Vitamin D3) multivitamin 1 tab PO QAM 02/10/19 10/24/24 History albuterol sulfate 90 mcg/actuation 2 puff inhalation Q6H PRN 06/06/19 10/24/24 History aerosol inhaler (ProAir HFA) Shortness Of Breath vitamins A,C,E-fhzw-ewbcke 2,148 1 tab PO QAM 06/06/19 10/24/24 History mcg-113 mg-45 mg-17.4 mg tablet (PreserVision AREDS) omeprazole 40 mg capsule,delayed 40 mg PO BID #180 caps 01/19/21 10/24/24 Rx release mirtazapine 15 mg tablet 22.5 mg PO HS 10/26/21 10/24/24 History buspirone 10 mg tablet 10 mg PO BID 04/05/22 10/24/24 History ferrous sulfate 325 mg (65 mg 325 mg PO BID 04/05/22 10/24/24 History iron) tablet acetaminophen 650 mg 650 mg PO UD 10/24/24 10/24/24 History tablet,extended release (Arthritis Pain Relief (acetaminophen) ER) alprazolam 0.25 mg tablet 0.25 mg PO BID PRN Anxiety 10/24/24 10/24/24 History cetirizine 10 mg tablet 10 mg PO BID 10/24/24 10/24/24 History clobetasol 0.05 % topical ointment 1 applic topical BID 10/24/24 10/24/24 History cyanocobalamin (vitamin B-12) 2,000 mcg PO DAILY 10/24/24 10/24/24 History 1,000 mcg capsule diphenhydramine HCl 25 mg capsule 25 mg PO HS PRN Itching 10/24/24 10/24/24 History (Benadryl) doxycycline monohydrate 100 mg 100 mg PO BID 10/24/24 10/24/24 History tablet duloxetine 30 mg capsule,delayed 30 mg PO DAILY 10/24/24 10/24/24 History release famotidine 20 mg tablet 20 mg PO BID 10/24/24 10/24/24 History gabapentin 100 mg capsule 100 mg PO TID 10/24/24 10/24/24 History meclizine 12.5 mg tablet 12.5 mg PO TID PRN Vertigo 10/24/24 10/24/24 History nystatin 100,000 unit/mL oral 1 ml PO QID 10/24/24 10/24/24 History suspension prednisone 20 mg tablet 40 mg PO DAILY 10/24/24 10/24/24 History tiotropium 2.5 mcg-olodaterol 2.5 2 puff inhalation DAILY 10/24/24 10/24/24 History mcg/actuation mist for inhalation (Stiolto Respimat) triamcinolone acetonide 0.1 % 1 applic topical BID 10/24/24 10/24/24 History topical ointment Patient History Medical History Cancer of left breast 2005--sx, chemo, radiation Myocardial Infarction 08/2017 "silent"--follows with Dr. Aguiar Surgical History History of esophagogastroduodenoscopy (EGD) last 01/2021 @ [facility] History of colonoscopy History of lumpectomy of left breast History of left breast biopsy malignant History of tooth extraction all teeth History of bilateral cataract extraction Family History Brother Family hx of colon cancer Other No family history of adverse response to anesthesia Social History Smoking Status: Former smoker Tobacco Type: Cigarettes Cigarettes Per Day: 5 a day; Second Hand Exposure: No; Do You Dip or Chew Tobacco: No; Hx Alcohol Use: No Hx Substance Use: No Preferred Language: Singaporean Communication Ability: Effective [employer] [place] Attendant Required: No Beliefs That Will Affect Care: None Current Living Situation: Alone and Other Current Living Situation Comment: live in caregivers Feels Safe at Home: Yes Safety Concerns: Feels Safe At This Time Assistive Devices: Walker Review of Systems Review of Systems: Negative other than in the HPI Physical Exam Physical Exam: PROCEDURE: fiberoptic laryngoscopy was performed. This revealed abundant secretions in the hypopharynx. Larynx was visualized. Vocal cord mobility is normal without paralysis or paresis. No masses or lesions. I do not appreciate any bulla in the pharynx or larynx. postcricoid space appeared normal. Constitutional: Awake. Confused Eyes: extraocular muscles intact ENMT: significant secretion in the oropharynx and oral cavity. No masses or lesions. Results & Data Vital Signs (Past 12 Hours) Vital Signs Temp Pulse Pulse Resp BP Pulse Ox O2 Del Method 10/28/24 11:37 36.4 C L 90 16 119/73 96 Room Air 10/28/24 07:53 Room Air 10/28/24 07:53 82 10/28/24 07:38 36.2 C L 74 16 117/77 94 Room Air 10/28/24 03:23 36.5 C 104 H 16 115/62 95 Room Air (1) Dysphagia Dysphagia type: oropharyngeal phase Qualified Code(s): R13.12 - Dysphagia, oropharyngeal phase
--- NOTE | 2024-10-28 12:46 | Fluoroscopy Report ---
FL video swallow CLINICAL HISTORY: r/o aspiration COMPARISON STUDY: 07/12/2023 TECHNIQUE: The patient was given a barium mixture of varying consistencies according to the speech pa thology protocol. Examination was observed fluoroscopically with rapid sequence filming performed. Do se data not provided. FINDINGS: The patient had difficulty initiating deglutition most likely due to anxiety rather than th at dyskinesis. What swallowing was done resulted in pronounced pooling of contrast material in the va llecular recess. There is spillage over the base of the tongue. There was one episode of deep penetra tion with thin liquids but no efrain aspiration was observed on this limited study. IMPRESSION: Limited study due to the inability or unwillingness to the patient to initiate the swall owing. Suspect a component of anxiety. There was one episode of deep penetration with thin liquids. N o aspiration was observed. ACT 112: Negative or not required by law. Electronically signed by: Elli Hudson M.D. 10/28/2024 12:44 PM
[2024-10-28] MEDS: DEXTROSE 5% 1,000 ML IV SCH (13:37)
[2024-10-28] MEDS: bisacodyL 10 MG SUPP PR STA (16:43)
[2024-10-28] MEDS: ERTAPENEM 500MG 500 MG/5 ML SYR IV SCH (16:59)
[2024-10-29 07:03] LABS: Hematocrit (blood only) 41.4 % (37.0-47.0); Hemoglobin 13.3 g/dl (12.0-16.0); Mean Corpuscular Hemoglobin 30.6 pg (25.0-34.0); Mean Corpuscular Hgb Conc 32.1 g/dL (32.0-36.0); Mean Corpuscular Volume 95.4 fL (80.0-100.0); Mean Platelet Volume 10.4 fL (9.4-12.4); Nucleated RBC # (auto) 0.07 K/uL (0.00-0.12); Nucleated RBC % (auto) 0.3 %; Platelet Count 123 K/uL (130-400); RDW Coefficient of Variation 15.6 % (11.5-14.5); RDW Standard Deviation 53.3 fL (36.4-46.3); Red Blood Count 4.34 M/uL (4.20-5.40); White Blood Count 20.52 K/ul (4.8-10.8)
[2024-10-29 07:26] LABS: BUN Creatinine Ratio 34.1 (10-20); Calcium 8.9 mg/dl (8.6-10.3); Creatinine Clr Calc Pharmacy 29.3 ml/min; Magnesium 1.8 mg/dl (1.7-2.4); Phosphorus 2.6 mg/dl (2.5-4.9); Potassium 3.6 mmol/L (3.5-5.1)
--- NOTE | 2024-10-29 09:15 | Palliative Care Consultation ---
Date of Consultation October 29, 2024 Assessment & Plan (1) Palliative care by specialist: Spoke with pt's ANTOINE/HCPOA Lucy Agudelo and nephew Rey Agudelo via phone. Introduced Palliative Medicine and explained our role in advanced care planning, symptom management and navigation through the progression of life limiting disease. Patient and/or family were receptive to palliative services for goals of care discussions. Reviewed we are different from hospice, a home health nurse visiting service. (2) Counseling regarding goals of care: AD paperwork on file which was properly executed by patient on 07/12/2020 designates patient's brother in law, Gurjit Agudelo, as primary HCPOA and Sister in law Pura Agudelo ([phone]) as secondary HCPOA for all medical decisions in the event she lacks decisional capacity. (3) Counseling regarding advanced directives: Patient currently lacks decisional capacity based on the inability to convey understanding of personal PMHx, current medical condition, treatment options nor the risks / benefits of those options, and lack of ability to make decisions based on such knowledge. Hospital does have written documentation of patient wishes concerning his chosen proxy for medical decisions. AD paperwork on file which was properly executed by patient on 07/12/2020 designates patient's brother in law, Gurjit Agudelo, as primary HCPOA and Sister in law Pura Agudelo ([phone]) as secondary HCPOA for all medical decisions in the event she lacks decisional capacity. Pt does require a proxy for medical decisions. Plan Brief conversation held with pt's secondary HCPOA/ANTOINE Lucy Agudelo and pt's nephananda Le via phone. Lucy shared that she had sahra here at hospital until sunday whe she had to return to home ([facility]) because her , Gurjit Agudelo (Pt's primary HCPOA) had a scheduled surgical valve replacement. She shared that she is currently in hospital surgical waiting area as her is in OR. Lucy shared that she may be a bit distracted, but did wish to talk at this time. Lucy was able to convey a thourough knowledge of pt's PMHx and current admission course. She shared that pt would not want feeding tube of any kind and asked if pt has "failure to thrive". I conveyed concern that the pt is stable at this time, but simply not taking in enough by mouth to sustain herself as well as often refusing medications. At this time Lucy shared that the pt is actually her Gurjit' brother's and after the brother , Lucy and Gurjit assumed care of this pt. Lucy shared that they live in [facility] and are preoccupied with Gurjit' health at this time. I encouraged her to focus on her at this time. We agreed to schedule a time for GOC discussion after her is recovered from surgery and able to join conversation. Lucy shared that they intend to visit with pt over weekend. Lucy requested a call on Sunday morning to plan time for GOC discussion. History of Present Illness Reason for Consultation: GOC, poor PO intake/aspiration iso AD indicating pt wishes for NO artificial nutrition. Requesting Physician: Sunil Ruiz MD Attending Physician: Sunil Ruiz MD History of Present Illness 84yo F with a PMH of CAD, DM II, COPD, CKD III, anxiety, SILVIA, history of tobacco, bullous pemphigoid diagnosed last month who was referred to ED by PCP 2/2 abnormal lab work s/f dehydration. Pt was diagnosed with bullous pemphigoid in September and had blisters all over body extending to mouth and throat. Was tolerating pureed foods until 5 days ago but with decreased PO intake 2/2 increased mucous production prompting visit to PCP who started nystatin for thrush. 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 Pt reportedly has had several weeks of poor PO intake 2/2 bullous pemphigoid. Report from dermatology Followed up notes lesions ave significantly improved with topical clobetasol, oral doxycycline, prednisone. Prednisone decreased from 40mg daily to 20mg daily. Was also started on Cymbalta 30 mg and gabapentin 100 mg TID for pain and depression. Per review, did have a swallow study a few years ago that showed evidence of aspiration. Has pain at site of lesions in mouth and all over body that are tender. No F/C, CP, SOB or abdominal pain. Pt admitted for medical mgmt of dehydration/АННА, nephrology and speech therapy have been consulted. Allergies Allergy/AdvReac Type Severity Reaction Status Date / Time Penicillins Allergy Mild Rash Verified 11/02/21 08:27 Home Medications Medication Instructions Recorded Confirmed Type aspirin 81 mg tablet,delayed 81 mg PO QAM 02/10/19 10/24/24 History release cholecalciferol (vitamin D3) 50 2,000 unit PO QAM 02/10/19 10/24/24 History mcg (2,000 unit) tablet (Vitamin D3) multivitamin 1 tab PO QAM 02/10/19 10/24/24 History albuterol sulfate 90 mcg/actuation 2 puff inhalation Q6H PRN 06/06/19 10/24/24 History aerosol inhaler (ProAir HFA) Shortness Of Breath vitamins A,C,X-qulj-sclfgk 2,148 1 tab PO QAM 06/06/19 10/24/24 History mcg-113 mg-45 mg-17.4 mg tablet (PreserVision AREDS) omeprazole 40 mg capsule,delayed 40 mg PO BID #180 caps 01/19/21 10/24/24 Rx release mirtazapine 15 mg tablet 22.5 mg PO HS 10/26/21 10/24/24 History buspirone 10 mg tablet 10 mg PO BID 04/05/22 10/24/24 History ferrous sulfate 325 mg (65 mg 325 mg PO BID 04/05/22 10/24/24 History iron) tablet acetaminophen 650 mg 650 mg PO UD 10/24/24 10/24/24 History tablet,extended release (Arthritis Pain Relief (acetaminophen) ER) alprazolam 0.25 mg tablet 0.25 mg PO BID PRN Anxiety 10/24/24 10/24/24 History cetirizine 10 mg tablet 10 mg PO BID 10/24/24 10/24/24 History clobetasol 0.05 % topical ointment 1 applic topical BID 10/24/24 10/24/24 History cyanocobalamin (vitamin B-12) 2,000 mcg PO DAILY 10/24/24 10/24/24 History 1,000 mcg capsule diphenhydramine HCl 25 mg capsule 25 mg PO HS PRN Itching 10/24/24 10/24/24 History (Benadryl) doxycycline monohydrate 100 mg 100 mg PO BID 10/24/24 10/24/24 History tablet duloxetine 30 mg capsule,delayed 30 mg PO DAILY 10/24/24 10/24/24 History release famotidine 20 mg tablet 20 mg PO BID 10/24/24 10/24/24 History gabapentin 100 mg capsule 100 mg PO TID 10/24/24 10/24/24 History meclizine 12.5 mg tablet 12.5 mg PO TID PRN Vertigo 10/24/24 10/24/24 History nystatin 100,000 unit/mL oral 1 ml PO QID 10/24/24 10/24/24 History suspension prednisone 20 mg tablet 40 mg PO DAILY 10/24/24 10/24/24 History tiotropium 2.5 mcg-olodaterol 2.5 2 puff inhalation DAILY 10/24/24 10/24/24 History mcg/actuation mist for inhalation (Stiolto Respimat) triamcinolone acetonide 0.1 % 1 applic topical BID 10/24/24 10/24/24 History topical ointment Patient History Medical History Cancer of left breast 2005--sx, chemo, radiation Myocardial Infarction 08/2017 "silent"--follows with Dr. Aguiar Surgical History History of esophagogastroduodenoscopy (EGD) last 01/2021 @ [facility] History of colonoscopy History of lumpectomy of left breast History of left breast biopsy malignant History of tooth extraction all teeth History of bilateral cataract extraction Family History Brother Family hx of colon cancer Other No family history of adverse response to anesthesia Social History Smoking Status: Former smoker Tobacco Type: Cigarettes Cigarettes Per Day: 5 a day; Second Hand Exposure: No; Do You Dip or Chew Tobacco: No; Hx Alcohol Use: No Hx Substance Use: No Preferred Language: Nepali Communication Ability: Effective Rn Enterostomal Required: No Beliefs That Will Affect Care: None Current Living Situation: Alone and Other Current Living Situation Comment: live in caregivers Feels Safe at Home: Yes Safety Concerns: Feels Safe At This Time Assistive Devices: Walker Review of Systems Review of Systems: Unobtainable due to cognitive status Physical Exam Constitutional: well developed, + obese and + altered mental status; no acute distress Eyes: PERRL, conjunctivae normal, anicteric sclerae ENMT: Patient declined oropharyngeal exam Respiratory: normal respiratory effort, lungs clear to auscultation Cardiovascular: Rate/Rhythm: regular rate and regular rhythm Gastrointestinal (Abdomen): normal bowel sounds, soft, nontender, no hepatosplenomegaly Musculoskeletal: No pedal edema Skin: Skin lesions healing Neurologic: PERRL, EOMI, accommodation nl, no face palsy, no dysarthria Psychiatric: Orientation: alert oriented to person only; Confused Results & Data Vital Signs (Past 12 Hours) Vital Signs Temp Pulse Pulse Resp BP Pulse Ox O2 Del Method 10/29/24 07:49 94/69 L 10/29/24 07:19 37.0 C 103 H 16 93 Room Air 10/29/24 04:05 36.7 C 97 H 18 132/84 94 Room Air 10/28/24 22:54 36.9 C 99 H 20 125/88 94 Nasal Cannula 10/28/24 21:54 95 H Laboratory Results Abnormal lab results 10/28/24 10/28/24 10/28/24 Range/Units 11:22 16:25 19:53 WBC (4.8-10.8) K/ul RDW Std Deviation (36.4-46.3) fL RDW Coeff of Thierry (11.5-14.5) % Plt Count (130-400) K/uL Chloride (98-107) mmol/L BUN (6-23) mg/dl Creatinine (0.6-1.2) mg/dl BUN/Creatinine Ratio (10-20) Glucose (70-99(Fasting)) mg/dl POC Glucose 129 H 179 H 153 H (70-99) mg/dl 10/29/24 10/29/24 Range/Units 06:00 07:15 WBC 20.52 H (4.8-10.8) K/ul RDW Std Deviation 53.3 H (36.4-46.3) fL RDW Coeff of Thierry 15.6 H (11.5-14.5) % Plt Count 123 L (130-400) K/uL Chloride 112 H (98-107) mmol/L BUN 46 H (6-23) mg/dl Creatinine 1.35 H (0.6-1.2) mg/dl BUN/Creatinine Ratio 34.1 H (10-20) Glucose 162 H (70-99(Fasting)) mg/dl POC Glucose 132 H (70-99) mg/dl Diagnostic Findings Chest X-Ray 10/24/24 13:51 XR chest 1V portable HISTORY: 84 years-old Female Sepsis acute sepsis COMPARISON: 04/23/2022 TECHNIQUE: AP view of the chest FINDINGS: Cardiac silhouette is enlarged. Patient positioning limits this study. Right hemidiaphragmatic elevation with linear right basilar densities. No pneumothorax, pleural effusion or overt pulmonary edema. Bones appear grossly intact. IMPRESSION: 1. Cardiomegaly without pulmonary edema. 2. Right hemidiaphragmatic elevation with right basilar densities, likely atelectatic. ACT 112: Negative or not required by law. The above report was generated using voice recognition software. It may contain grammatical, syntax or spelling errors. Electronically signed by: Bernard Peralta M.D. 10/24/2024 2:45 PM KUB X-Ray 10/27/24 09:56 KUB HISTORY: Abdominal pain COMPARISON STUDY: 12/07/2020 FINDINGS: A KUB is unchanged. The bowel gas pattern is nonspecific. There is no evidence of bowel obstruction. The properitoneal fat lines are maintained. Pelvic calcifications are once again noted consistent with fibroids. There is multilevel degenerative change in the lumbar spine. IMPRESSION: No acute findings identified. ACT 112: Negative or not required by law. The above report was generated using voice recognition software. It may contain grammatical, syntax or spelling errors. Electronically signed by: Elli Hudson M.D. 10/27/2024 10:47 AM Videofluoroscopic Swallow 10/28/24 09:30 FL video swallow CLINICAL HISTORY: r/o aspiration COMPARISON STUDY: 07/12/2023 TECHNIQUE: The patient was given a barium mixture of varying consistencies according to the speech pathology protocol. Examination was observed fluoroscopically with rapid sequence filming performed. Dose data not provided. FINDINGS: The patient had difficulty initiating deglutition most likely due to anxiety rather than that dyskinesis. What swallowing was done resulted in pronounced pooling of contrast material in the vallecular recess. There is spillage over the base of the tongue. There was one episode of deep penetration with thin liquids but no efrain aspiration was observed on this limited study. IMPRESSION: Limited study due to the inability or unwillingness to the patient to initiate the swallowing. Suspect a component of anxiety. There was one episode of deep penetration with thin liquids. No aspiration was observed. ACT 112: Negative or not required by law. Electronically signed by: Elli Hudson M.D. 10/28/2024 12:44 PM Medications Administered Current Inpatient Medications Acetaminophen (Acetaminophen 325 Mg Tab) 650 mg PO Q4H PRN PRN Reason: Pain or Fever Stop: 11/23/24 20:10 Albuterol (Albuterol Hfa 8 Gm Inhaler) 2 puffs INH Q6H PRN PRN Reason: Shortness Of Breath Stop: 11/23/24 20:10 Alprazolam (Alprazolam 0.25 Mg Tablet) 0.25 mg PO BID PRN PRN Reason: Anxiety Stop: 11/23/24 20:10 Aspirin (Aspirin 81 Mg Ectab) 81 mg PO QAM [facility] Stop: 11/24/24 08:59 Last Admin: 10/29/24 07:55 Dose: Not Given Buspirone HCl (Buspirone 5 Mg Tab) 10 mg PO BID MOLLY Stop: 11/23/24 20:59 Last Admin: 10/29/24 07:54 Dose: Not Given Cetirizine HCl (Cetirizine Hcl 10 Mg Tablet) 10 mg PO BID MOLLY Stop: 11/23/24 20:59 Last Admin: 10/29/24 07:54 Dose: Not Given Clobetasol Propionate (Clobetasol Propionate 0.05% Oint 15 Gm Tube) 1 appln EXT BID MOLLY Stop: 11/23/24 20:59 Last Admin: 10/29/24 07:55 Dose: 1 appln Cyanocobalamin (Cyanocobalamin (B-12) 500 Mcg Tablet) 2,000 mcg PO DAILY MOLLY Stop: 11/24/24 08:59 Last Admin: 10/29/24 07:54 Dose: Not Given Dextrose (Dextrose 50% 50 Ml Syringe) 25 - 50 ml IV UD PRN; Protocol PRN Reason: Hypoglycemia Protocol Stop: 11/23/24 17:50 Diphenhydramine HCl (Diphenhydramine Capsule 25 Mg Cap) 25 mg PO HS PRN PRN Reason: Itching Stop: 11/23/24 20:10 Duloxetine HCl (Duloxetine Hcl 30 Mg Cap) 30 mg PO DAILY MOLLY Stop: 11/24/24 08:59 Last Admin: 10/29/24 07:53 Dose: Not Given Famotidine (Famotidine 20 Mg Tab) 20 mg PO BID MOLLY Stop: 11/26/24 20:59 Last Admin: 10/29/24 07:53 Dose: Not Given Ferrous Sulfate (Ferrous Sulfate 325 Mg Tab) 325 mg PO BID MOLLY Stop: 11/23/24 20:59 Last Admin: 10/29/24 07:53 Dose: Not Given Glucagon (Glucagon For Inj 1 Mg Vial) 1 mg SQ UD PRN; Protocol PRN Reason: Hypoglycemia Protocol Stop: 11/23/24 17:50 Glucose (Glucose 40% Gel 15 Gm Tube) 15 - 30 gm PO UD PRN; Protocol PRN Reason: Hypoglycemia Protocol Stop: 11/23/24 17:50 Glucose (Glucose 10 Tab/Tube) 4 - 8 tab PO UD PRN; Protocol PRN Reason: Hypoglycemia Protocol Stop: 11/23/24 17:50 Guaifenesin (Guaifenesin 600 Mg Tabcr) 600 mg PO Q12 MOLLY Stop: 11/23/24 17:29 Last Admin: 10/29/24 07:53 Dose: Not Given Doxycycline Hyclate 100 mg/ (Dextrose) 100 mls @ 50 mls/hr IV Q12H MOLLY Stop: 10/31/24 17:29 Last Infusion: 10/29/24 07:49 Dose: Infused Methylprednisolone 40 mg/ (Syringe) 0.64 mls @ 1.5 mls/min IV DAILY MOLLY Stop: 11/24/24 13:59 Last Admin: 10/29/24 07:52 Dose: 1.5 mls/min Acetaminophen (Ofirmev) 1,000 mg in 100 mls @ 400 mls/hr IV Q8H PRN PRN Reason: Pain Stop: 10/30/24 10:00 Last Infusion: 10/28/24 15:39 Dose: Infused Pantoprazole Sodium (Protonix) 40 mg in 10 mls @ 5 mls/min IV BID MOLLY Stop: 11/26/24 20:59 Last Admin: 10/29/24 07:52 Dose: 5 mls/min Ertapenem (Invanz 500mg) 500 mg in 5 mls @ 2 mls/min IV Q24H MOLLY Stop: 11/07/24 16:59 Last Admin: 10/28/24 16:59 Dose: 2 mls/min Insulin Aspart (Insulin Aspart Per Unit Charge) 0 units SC ACHS [facility] Stop: 11/24/24 00:00 Last Admin: 10/29/24 07:57 Dose: Not Given Meclizine HCl (Meclizine 12.5 Mg Tab) 12.5 mg PO TID PRN PRN Reason: Vertigo Stop: 11/23/24 20:10 Melatonin (Melatonin 3 Mg Tab) 3 mg PO HS [facility] Stop: 11/25/24 20:59 Last Admin: 10/28/24 19:41 Dose: Not Given Menthol (Cough Drop (Sugar Free) Edwina 24 Edwina/1 Box) 1 edwina BUCCAL QID PRN PRN Reason: Sore Throat Stop: 11/26/24 09:56 Last Admin: 10/27/24 11:32 Dose: 1 edwina Mirtazapine (Mirtazapine Tab 15 Mg Tab) 22.5 mg PO HS [facility] Stop: 11/23/24 20:59 Last Admin: 10/28/24 19:41 Dose: Not Given Miscellaneous (Carbohydrates For Hypoglycemia ) 15 - 30 gm PO UD PRN PRN Reason: Hypoglycemia Protocol Stop: 11/23/24 17:50 Multivitamins/Minerals (Cerovite Adv Formula Tab) 1 tab PO QAM [facility] Stop: 11/24/24 08:59 Last Admin: 10/29/24 07:52 Dose: Not Given Ondansetron HCl (Ondansetron Inj 2 Mg/Ml 2 Ml Vial) 4 mg IV Q6H PRN PRN Reason: Nausea Stop: 11/23/24 20:10 Polyethylene Glycol (Polyethylene (Miralax) 17 Gm Pack) 17 gm PO DAILY PRN PRN Reason: Constipation Stop: 11/23/24 20:10 Potassium Chloride (Potassium Chloride Crtab 20 Meq Tabcr) 40 meq PO BID MOLLY Stop: 11/27/24 09:59 Last Admin: 10/29/24 07:55 Dose: Not Given Triamcinolone Acetonide (Triamcinolone Acet 0.1% Oint 15 Gm Tube) 1 appln TOP BID MOLLY Stop: 11/23/24 20:59 Last Admin: 10/29/24 07:51 Dose: 1 appln Umeclidinium/Vilanterol (Umeclidinium/Vilanterol 62.5/25mcg 7 Puffs/Inhaler) 1 puffs INH DAILY MOLLY Stop: 11/24/24 08:59 Last Admin: 10/29/24 07:56 Dose: Not Given Vitamin D (Cholecalciferol 25 Mcg (1000 Units) Tab) 50 mcg PO QAM MOLLY Stop: 11/24/24 08:59 Last Admin: 10/29/24 07:54 Dose: Not Given PG Care Time/CCT Total # of Minutes Spent Total Time Spent with Patient: Total time spent is greater than 50% in coordination of care (as documented) at patient's floor/unit and/or counseling patient: [place] [address] IN/OBS CONSULT LVL 3,45M Patient Type New History Problem Focused Exam Problem Focused Medical Decision Making Low Complexity Diagnoses Palliative care by specialist Z51.5 Counseling regarding goals of care Z71.89 Counseling regarding advanced directives Z71.89
[2024-10-29] MEDS: SODIUM CHLORIDE 0.9% 1,000 ML IV SCH (09:55)
--- NOTE | 2024-10-29 17:46 | Hospitalist Progress Note ---
Date of Service October 29, 2024 Assessment & Plan (1) Sepsis: (2) Bullous pemphigoid: (3) АННА (acute kidney injury): (4) Hypernatremia: (5) Elevated lactic acid level: (6) Elevated troponin: (7) Diabetes mellitus, type II: (8) Anxiety: (9) Depression: Plan Per previous hospitalist notes and addendum: 84 year old woman with a PMH of CAD, DM II, COPD, CKD III, anxiety, SILVIA, history of tobacco, bullous pemphigoid diagnosed last month who was called by PCP to come to ER for abnormal labs On admission, CXR noted cardiomegaly without pulm edema. Right hemidiaphragmatic elevation with right basilar densities likely atelectatic Labs notable for leukocytosis of 14.39, Hb of 16.7, HCt 52.3, Na of 152, Cl 114 Cr 2.43, Ca 10.9, trop 59.6. Lactate improved from 2.5 to 1.4 On admission, she had tachycardia, leukocytosis and lactate of 2.5; hence meets SIRS criteria Hence Sepsis is possible though these could also be from dehydration based on history, exam and findings (including increased Hb/Hct above patient's normal suggestive of hemoconcentration) Has history of aspiration Possible aspiration pneumonia/pneumonitis Possible Urinary tract infection Infectious negative so far Leukocytosis may be due to infection vs steroid Currently on ceftriaxone, doxycycline and flagyl With UCx growing ESBL and clinical status, will switch ceftriaxone/flagyl to ertapenem for now and monitor 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 Denied chest pain/SOB Trop 59->35 Home prednisone changed to IV solumedrol Other home meds such as PPI changed to IV meds due to patient not taking po meds well Code status: DNR POA reported that based on patient's living will, she does not want a feeding tube Admission and Anticipated Discharge Date Admission Date: October 24, 2024 Subjective Follow-up for dysphagia, dehydration acute kidney injury,, etc. Seen resting in bed, sitting up, sleeping but easily awakened Answers questions appropriately Patient's niece Flora at the bedside visiting States she feels fine overall Denies shortness of breath or pain She states she does not want any type of artificial nutrition including tube feeding or TPN/PPN Review of Systems Review of Systems: all noted and negative except for above Physical Exam Physical Exam: General- oriented x 3, not in distress, speaks in sentences with no effort or accessory muscle use Eyes- anicteric Neck- no JVD Lungs- clear breath sounds bilaterally, No crackles or wheezes Heart- normal rate, regular rhythm; no murmurs Abdomen- normal bowel sounds, nondistended, soft, nontender Extremities- no pretibial edema, no calf tenderness Neuro- alert, oriented x 3; no gross focal neurologic deficits Skin- warm & dry Results & Data Results & Data Vital Signs (Past 12 Hours) Vital Signs Temp Pulse Pulse Resp BP Pulse Ox O2 Del Method 10/29/24 15:14 36.9 C 78 16 99/72 L 93 Room Air 10/29/24 13:49 102 H 10/29/24 10:18 103 H 10/29/24 09:59 Room Air 10/29/24 07:49 94/69 L 10/29/24 07:19 37.0 C 103 H 16 93 Room Air all noted and reviewed including below
[2024-10-30 07:50] LABS: Hematocrit (blood only) 43.6 % (37.0-47.0); Hemoglobin 13.6 g/dl (12.0-16.0); Mean Corpuscular Hemoglobin 30.3 pg (25.0-34.0); Mean Corpuscular Hgb Conc 31.2 g/dL (32.0-36.0); Mean Corpuscular Volume 97.1 fL (80.0-100.0); Mean Platelet Volume 10.1 fL (9.4-12.4); Nucleated RBC # (auto) 0.06 K/uL (0.00-0.12); Nucleated RBC % (auto) 0.3 %; Platelet Count 112 K/uL (130-400); RDW Coefficient of Variation 15.9 % (11.5-14.5); RDW Standard Deviation 55.9 fL (36.4-46.3); Red Blood Count 4.49 M/uL (4.20-5.40); White Blood Count 21.15 K/ul (4.8-10.8)
[2024-10-30 08:09] LABS: Calcium 8.8 mg/dl (8.6-10.3); Magnesium 1.9 mg/dl (1.7-2.4)
[2024-10-30 08:15] LABS: BUN Creatinine Ratio 38.4 (10-20); Creatinine Clr Calc Pharmacy 31.7 ml/min; Phosphorus 3.3 mg/dl (2.5-4.9)
--- NOTE | 2024-10-30 10:01 | Palliative Care Progress Note ---
Date of Service October 30, 2024 Assessment & Plan (1) Palliative care by specialist: Plan: Met with pt's marlin Hines at bedside. Introduced Palliative Medicine and explained our role in advanced care planning, symptom management and navigation through the progression of life limiting disease. Flora was receptive to palliative services for goals of care discussions. Reviewed we are different from hospice, a home health nurse visiting service. (2) Counseling regarding goals of care: Plan: Spent 30 minutes discussing goals of care with Flora today. Pt's diesel plant operator Marcia was present. We discussed pt's medical history, current health and patient's advanced directive. Flora shared concern that the pt has had progressive decline over last several months and at this time she is heading towards needing things that she has clearly stated she does not want. Marcia expressed that she has been withthe pt 24hrs a day for two years and worries that the "family is giving up too early". Flora reinforced family knowledge of pt's wishes and shared that they all agree with honoring the pt's advanced directive. She shared that her parents (pt's HCPOAs) will be at hospital tomorrow and would like to meet for GOC discussions. Palliative care contact information shared. Flora will schedule time for her and pts HCPOAs (Lucy and Louie) to meet at bedside to discuss GOC, either Sunday or Sunday, pending weather and Louie's health. Plan Plan for GOC discussion when pt's HCPOAs (Lucy and Louie), marlin Hines and nephananda Le can all be available. Flora will schedule meeting, likely Sunday or on Sunday. Admission and Anticipated Discharge Date Admission Date: October 24, 2024 Subjective NAEON, pt more alert today, remains confused wieh continued poor PO intake. Nishannan Handleydith and diesel plant operator Marcia at bedside. Review of Systems Review of Systems: Unobtainable due to cognitive status Physical Exam Constitutional: + ill appearing, + obese, + altered ment al status and cooperative Eyes: PERRL, conjunctivae normal, anicteric sclerae ENMT: Patient declined oropharyngeal exam Neck: trachea midline, no thyromegaly Respiratory: normal respiratory effort, lungs clear to auscultation Cardiovascular: RRR, no murmur, no edema Gastrointestinal (Abdomen): normal bowel sounds, soft, nontender, no hepatosplenomegaly Musculoskeletal: No pedal edema Skin: Skin lesions healing Neurologic: PERRL, EOMI, accommodation nl, no face palsy, no dysarthria Psychiatric: Orientation: alert oriented to person only; Confused Results & Data Vital Signs (Past 12 Hours) Vital Signs Temp Pulse Pulse Resp BP Pulse Ox O2 Del Method 10/30/24 08:14 36.7 C 102 H 20 116/79 97 Nasal Cannula 10/30/24 07:29 105 H 10/30/24 03:45 36.3 C L 105 H 18 135/84 97 Nasal Cannula 10/29/24 23:05 36.4 C L 92 H 20 137/77 97 Nasal Cannula O2 Flow Rate 10/30/24 08:14 2 10/30/24 07:29 10/30/24 03:45 10/29/24 23:05 2 Laboratory Results Abnormal lab results 10/30/24 10/30/24 Range/Units 07:15 16:30 WBC 21.15 H (4.8-10.8) K/ul MCHC 31.2 L (32.0-36.0) g/dL RDW Std Deviation 55.9 H (36.4-46.3) fL RDW Coeff of Thierry 15.9 H (11.5-14.5) % Plt Count 112 L (130-400) K/uL Chloride 119 H (98-107) mmol/L Carbon Dioxide 17 L (21-32) mmol/L BUN 48 H (6-23) mg/dl Creatinine 1.25 H (0.6-1.2) mg/dl BUN/Creatinine Ratio 38.4 H (10-20) POC Glucose 108 H (70-99) mg/dl Diagnostic Findings Chest X-Ray 10/24/24 13:51 XR chest 1V portable HISTORY: 84 years-old Female Sepsis acute sepsis COMPARISON: 04/23/2022 TECHNIQUE: AP view of the chest FINDINGS: Cardiac silhouette is enlarged. Patient positioning limits this study. Right hemidiaphragmatic elevation with linear right basilar densities. No pneumothorax, pleural effusion or overt pulmonary edema. Bones appear grossly intact. IMPRESSION: 1. Cardiomegaly without pulmonary edema. 2. Right hemidiaphragmatic elevation with right basilar densities, likely atelectatic. ACT 112: Negative or not required by law. The above report was generated using voice recognition software. It may contain grammatical, syntax or spelling errors. Electronically signed by: Bernard Peralta M.D. 10/24/2024 2:45 PM KUB X-Ray 10/27/24 09:56 KUB HISTORY: Abdominal pain COMPARISON STUDY: 12/07/2020 FINDINGS: A KUB is unchanged. The bowel gas pattern is nonspecific. There is no evidence of bowel obstruction. The properitoneal fat lines are maintained. Pelvic calcifications are once again noted consistent with fibroids. There is multilevel degenerative change in the lumbar spine. IMPRESSION: No acute findings identified. ACT 112: Negative or not required by law. The above report was generated using voice recognition software. It may contain grammatical, syntax or spelling errors. Electronically signed by: Elli Hudson M.D. 10/27/2024 10:47 AM Videofluoroscopic Swallow 10/28/24 09:30 FL video swallow CLINICAL HISTORY: r/o aspiration COMPARISON STUDY: 07/12/2023 TECHNIQUE: The patient was given a barium mixture of varying consistencies according to the speech pathology protocol. Examination was observed fluoroscopically with rapid sequence filming performed. Dose data not provided. FINDINGS: The patient had difficulty initiating deglutition most likely due to anxiety rather than that dyskinesis. What swallowing was done resulted in pronounced pooling of contrast material in the vallecular recess. There is spillage over the base of the tongue. There was one episode of deep penetration with thin liquids but no efrain aspiration was observed on this limited study. IMPRESSION: Limited study due to the inability or unwillingness to the patient to initiate the swallowing. Suspect a component of anxiety. There was one episode of deep penetration with thin liquids. No aspiration was observed. ACT 112: Negative or not required by law. Electronically signed by: Elli Hudson M.D. 10/28/2024 12:44 PM Medications Administered Current Inpatient Medications Acetaminophen (Acetaminophen 325 Mg Tab) 650 mg PO Q4H PRN PRN Reason: Pain or Fever Stop: 11/23/24 20:10 Albuterol (Albuterol Hfa 8 Gm Inhaler) 2 puffs INH Q6H PRN PRN Reason: Shortness Of Breath Stop: 11/23/24 20:10 Alprazolam (Alprazolam 0.25 Mg Tablet) 0.25 mg PO BID PRN PRN Reason: Anxiety Stop: 11/23/24 20:10 Aspirin (Aspirin 81 Mg Ectab) 81 mg PO QAM MOLLY Stop: 11/24/24 08:59 Last Admin: 10/30/24 08:51 Dose: Not Given Buspirone HCl (Buspirone 5 Mg Tab) 10 mg PO BID MOLLY Stop: 11/23/24 20:59 Last Admin: 10/30/24 08:51 Dose: Not Given Cetirizine HCl (Cetirizine Hcl 10 Mg Tablet) 10 mg PO BID MOLLY Stop: 11/23/24 20:59 Last Admin: 10/30/24 08:51 Dose: Not Given Clobetasol Propionate (Clobetasol Propionate 0.05% Oint 15 Gm Tube) 1 appln EXT BID MOLLY Stop: 11/23/24 20:59 Last Admin: 10/30/24 10:26 Dose: 1 appln Cyanocobalamin (Cyanocobalamin (B-12) 500 Mcg Tablet) 2,000 mcg PO DAILY MOLLY Stop: 11/24/24 08:59 Last Admin: 10/30/24 08:51 Dose: Not Given Dextrose (Dextrose 50% 50 Ml Syringe) 25 - 50 ml IV UD PRN; Protocol PRN Reason: Hypoglycemia Protocol Stop: 11/23/24 17:50 Diphenhydramine HCl (Diphenhydramine Capsule 25 Mg Cap) 25 mg PO HS PRN PRN Reason: Itching Stop: 11/23/24 20:10 Duloxetine HCl (Duloxetine Hcl 30 Mg Cap) 30 mg PO DAILY MOLLY Stop: 11/24/24 08:59 Last Admin: 10/30/24 08:51 Dose: Not Given Famotidine (Famotidine 20 Mg Tab) 20 mg PO BID MOLLY Stop: 11/26/24 20:59 Last Admin: 10/30/24 08:52 Dose: Not Given Ferrous Sulfate (Ferrous Sulfate 325 Mg Tab) 325 mg PO BID MOLLY Stop: 11/23/24 20:59 Last Admin: 10/30/24 08:52 Dose: Not Given Glucagon (Glucagon For Inj 1 Mg Vial) 1 mg SQ UD PRN; Protocol PRN Reason: Hypoglycemia Protocol Stop: 11/23/24 17:50 Glucose (Glucose 40% Gel 15 Gm Tube) 15 - 30 gm PO UD PRN; Protocol PRN Reason: Hypoglycemia Protocol Stop: 11/23/24 17:50 Glucose (Glucose 10 Tab/Tube) 4 - 8 tab PO UD PRN; Protocol PRN Reason: Hypoglycemia Protocol Stop: 11/23/24 17:50 Guaifenesin (Guaifenesin 600 Mg Tabcr) 600 mg PO Q12 MOLLY Stop: 11/23/24 17:29 Last Admin: 10/30/24 08:52 Dose: Not Given Doxycycline Hyclate 100 mg/ (Dextrose) 100 mls @ 50 mls/hr IV Q12H MOLLY Stop: 10/31/24 17:29 Last Admin: 10/30/24 18:06 Dose: 50 mls/hr Methylprednisolone 40 mg/ (Syringe) 0.64 mls @ 1.5 mls/min IV DAILY MOLLY Stop: 11/24/24 13:59 Last Admin: 10/30/24 08:53 Dose: 1.5 mls/min Pantoprazole Sodium (Protonix) 40 mg in 10 mls @ 5 mls/min IV BID MOLLY Stop: 11/26/24 20:59 Last Admin: 10/30/24 08:54 Dose: 5 mls/min Ertapenem (Invanz 500mg) 500 mg in 5 mls @ 2 mls/min IV Q24H MOLLY Stop: 11/07/24 16:59 Last Admin: 10/30/24 16:37 Dose: 2 mls/min Sodium Chloride (Nss) 1,000 mls @ 60 mls/hr IV .[id number] MOLLY Stop: 10/31/24 15:59 Last Admin: 10/30/24 16:27 Dose: 60 mls/hr Insulin Aspart (Insulin Aspart Per Unit Charge) 0 units SC ACHS MOLLY Stop: 11/24/24 00:00 Last Admin: 10/30/24 16:43 Dose: Not Given Lorazepam (Lorazepam 2 Mg/1 Ml Vial) 0.25 mg IV Q12H PRN PRN Reason: anxiety Stop: 11/29/24 17:44 Meclizine HCl (Meclizine 12.5 Mg Tab) 12.5 mg PO TID PRN PRN Reason: Vertigo Stop: 11/23/24 20:10 Melatonin (Melatonin 3 Mg Tab) 3 mg PO HS [facility] Stop: 11/25/24 20:59 Last Admin: 10/29/24 19:38 Dose: Not Given Menthol (Cough Drop (Sugar Free) Edwina 24 Edwina/1 Box) 1 edwina BUCCAL QID PRN PRN Reason: Sore Throat Stop: 11/26/24 09:56 Last Admin: 10/27/24 11:32 Dose: 1 edwina Mirtazapine (Mirtazapine Tab 15 Mg Tab) 22.5 mg PO HS MOLLY Stop: 11/23/24 20:59 Last Admin: 10/29/24 19:38 Dose: Not Given Miscellaneous (Carbohydrates For Hypoglycemia ) 15 - 30 gm PO UD PRN PRN Reason: Hypoglycemia Protocol Stop: 11/23/24 17:50 Multi-Ingredient Mouthwash/Gargle (First - Mouthwash Blm 5 Ml Udp) 5 ml PO QID PRN PRN Reason: throat pain Stop: 11/29/24 20:59 Multivitamins/Minerals (Cerovite Adv Formula Tab) 1 tab PO QAM MOLLY Stop: 11/24/24 08:59 Last Admin: 10/30/24 08:52 Dose: Not Given Ondansetron HCl (Ondansetron Inj 2 Mg/Ml 2 Ml Vial) 4 mg IV Q6H PRN PRN Reason: Nausea Stop: 11/23/24 20:10 Polyethylene Glycol (Polyethylene (Miralax) 17 Gm Pack) 17 gm PO DAILY PRN PRN Reason: Constipation Stop: 11/23/24 20:10 Potassium Chloride (Potassium Chloride Crtab 20 Meq Tabcr) 40 meq PO BID MOLLY Stop: 11/27/24 09:59 Last Admin: 10/30/24 08:53 Dose: Not Given Triamcinolone Acetonide (Triamcinolone Acet 0.1% Oint 15 Gm Tube) 1 appln TOP BID MOLLY Stop: 11/23/24 20:59 Last Admin: 10/30/24 10:26 Dose: 1 appln Umeclidinium/Vilanterol (Umeclidinium/Vilanterol 62.5/25mcg 7 Puffs/Inhaler) 1 puffs INH DAILY MOLLY Stop: 11/24/24 08:59 Last Admin: 10/30/24 09:02 Dose: 1 puffs Vitamin D (Cholecalciferol 25 Mcg (1000 Units) Tab) 50 mcg PO QAM MOLLY Stop: 11/24/24 08:59 Last Admin: 10/30/24 08:51 Dose: Not Given PG Care Time/CCT Total # of Minutes Spent Total Time Spent with Patient: Total time spent is greater than 50% in coordination of care (as documented) at patient's floor/unit and/or counseling patient: Advanced Care Planning 08751 Advanced Care Planning 30 Min C[place] [address] SUB INP/OBS CARE 10/04MIN Patient Type Established History Problem Focused Exam Problem Focused Medical Decision Making Low Complexity Diagnoses Palliative care by specialist Z51.5 Counseling regarding goals of care Z71.89 Additional Codes Advanced Care Planning - 11265 Advanced Care Planning 30 Min: 83822 Advanced Care Planning 30 Min ([id number])
[2024-10-30] MEDS: SODIUM CHLORIDE 0.9% 1,000 ML IV SCH (16:27)
[2024-10-30] MEDS ORDERED: LORazepam 2 MG/1 ML VIAL IV PRN (17:31)
--- NOTE | 2024-10-30 17:35 | Hospitalist Progress Note ---
Date of Service October 30, 2024 Assessment & Plan (1) Sepsis: (2) Bullous pemphigoid: (3) АННА (acute kidney injury): (4) Hypernatremia: (5) Elevated lactic acid level: (6) Elevated troponin: (7) Diabetes mellitus, type II: (8) Anxiety: (9) Depression: Plan Per previous hospitalist notes and addendum: 84 year old woman with a PMH of CAD, DM II, COPD, CKD III, anxiety, SILVIA, history of tobacco, bullous pemphigoid diagnosed last month who was called by PCP to come to ER for abnormal labs On admission, CXR noted cardiomegaly without pulm edema. Right hemidiaphragmatic elevation with right basilar densities likely atelectatic Labs notable for leukocytosis of 14.39, Hb of 16.7, HCt 52.3, Na of 152, Cl 114 Cr 2.43, Ca 10.9, trop 59.6. Lactate improved from 2.5 to 1.4 On admission, she had tachycardia, leukocytosis and lactate of 2.5; hence meets SIRS criteria Hence Sepsis is possible though these could also be from dehydration based on history, exam and findings (including increased Hb/Hct above patient's normal suggestive of hemoconcentration) Has history of aspiration Possible aspiration pneumonia/pneumonitis Possible Urinary tract infection Infectious negative so far Leukocytosis may be due to infection vs steroid Currently on ceftriaxone, doxycycline and flagyl With UCx growing ESBL and clinical status, will switch ceftriaxone/flagyl to ertapenem for now and monitor [employer] eval noted Planned for video swallow study hoping patient will participate Awaiting ENT eval Hypokalemia repleted Nephro on board Continue IVF 10/29 Patient does not want to pursue artificial means of nutrition Palliative service consulted Patient's niece Flora requesting to speak with palliative care service again tomorrow Continue IV fluids, IV or ertapenem for UTI Elevated trops may be due to demand No new ST changes. Denied chest pain/SOB Trop 59->35 Home prednisone changed to IV solumedrol Other home meds such as PPI changed to IV meds due to patient not taking po meds well Code status: DNR POA reported that based on patient's living will, she does not want a feeding tube Admission and Anticipated Discharge Date Admission Date: October 24, 2024 Results & Data Results & Data Vital Signs (Past 12 Hours) Vital Signs Temp Pulse Pulse Resp BP Pulse Ox O2 Del Method 10/30/24 14:54 96 H 10/30/24 11:23 36.3 C L 98 H 19 120/64 99 Nasal Cannula 10/30/24 08:14 36.7 C 102 H 20 116/79 97 Nasal Cannula 10/30/24 07:29 105 H O2 Flow Rate 10/30/24 14:54 10/30/24 11:23 2 10/30/24 08:14 2 10/30/24 07:29
[2024-10-31 08:26] VITALS: RESP 20
--- NOTE | 2024-10-31 12:52 | Palliative Care Progress Note ---
Date of Service October 31, 2024 Assessment & Plan (1) Palliative care by specialist: Plan: Palliative care continues to follow for ongoing care planning, end of life care, and family support. (2) Counseling regarding goals of care: Plan: Goals are clearly established for transition to [employer]SM[employer]ION [employer] once family arrives this afternoon. Family still undecided on disposition of home with hospice vs SNF with hospice. (3) Encounter for hospice care discussion: Plan: Reinforced previous discussions concerning hospice benefit: an interdisciplinary program offered by nurses, nurses aides, social workers, chaplains and a medical technicians for patients with a terminal condition and a life expectancy of less than 6 months. This is covered by Medicare at 100%/no out of pocket expense to patient and all meds/supplies needed by patient for the reason they are on hospice are paid for/covered by hospice. The goal is assure quality of life of the patient in their home setting (home, fpc, inpatient hospice setting) by providing symptoms management, psychosocial and spiritual support. However, they cannot offer 24 hours care and if the family is unable to provide that care, they will have to consider personal care with out of pocket cost vs. fpc placement. We discussed the goals of hospice as a patient service and the goals of care; we discussed EOL trajectories and transitions janey the emotional impact of realizing mortality as a concrete reality from prior abstract considerations. Pt was reassured that no matter where they are along this trajectory, they are not alone - their medical team will remain by their side through their journey. Discussed the pros/cons of accepting help when especially weakened and distressed by pain-which would also help provide relief/decrease caregiver burden/strain. Flora reiterated plan to transition to TRANSMISSION BUILDER once pt's HCPOA arrives this afternoon. (4) Need for comfort care: Plan: Family arrival expected after 4pm today, following recs for comfort care when they are ready: TRANSMISSION BUILDER - Symptom manamgement: Pain/dyspnea/tachypnea dilaudid 0.2mg IVP PRN [id number] Consider titratable drip if pt requires >3 PRN doses in under two consecutive hours. Nausea/vomitting zofran 4mg IVP q4h PRN Agitation ativan 0.5mg IVP q4h PRN Hyperactive delirium haldol 5mg IVP q6h PRN Secretions - if repositioning not effective robinul 0.4mg IV q4h PRN atropine SL 3 drops Q1h PRN Nursing care: Discontinue all medications not directed towards comfort. Detether pt from IV tubing, monitor cables, and check vitals once per shift. Please continue HFNC and titrate down as able for patient comfort. Use medications above PRN for dyspnea/tachypnea and do not increase oxygen once titrated down. Assess q1h for pain/dyspnea and treat accordingly. Plan Plan for transition to [employer]SM[employer]ION BU[employer] on family arrival late this afternoon. Family is still undecided on [place] home with hospice and 24hr caretakers vs a SNF with hospice care closer to their home in [place] Hospice Admission and Anticipated Discharge Date Admission Date: October 24, 2024 Subjective Assessed pt at bedside, she was drowsy, difficult to arouse, confused. She had large amount of thick secretions in throat causing gurgling but made no attempt to clear. On prompting pt did try to cough but was uable to expectorate thick secretions. Helped pt sit more upright in bed and visitors arrived at bedside. SHe was ore alert with visitors, was able to cough/expectorate secretions and did converse more clearly but remains confused. Review of Systems Review of Systems: Unobtainable due to cognitive status Physical Exam Constitutional: well developed, + obese and + altered mental status; no acute distress Eyes: PERRL, conjunctivae normal, anicteric sclerae Respiratory: normal respiratory effort, lungs clear to auscultation Cardiovascular: Rate/Rhythm: regular rate and regular rhythm Gastrointestinal (Abdomen): normal bowel sounds, soft, nontender, no hepatosplenomegaly Musculoskeletal: No pedal edema Skin: Skin lesions healing Neurologic: PERRL, EOMI, accommodation nl, no face palsy, no dysarthria Psychiatric: Orientation: alert oriented to person only; Confused Results & Data Vital Signs (Past 12 Hours) Vital Signs Temp Pulse Pulse Resp BP Pulse Ox O2 Del Method 10/31/24 11:32 36.3 C L 109 H 20 125/84 96 Room Air 10/31/24 08:25 36.4 C 115 H 20 130/82 99 Room Air 10/31/24 07:25 104 H 10/31/24 03:18 36.9 C 97 H 22 127/93 97 Room Air 10/31/24 01:45 96 H Laboratory Results Abnormal lab results 10/30/24 10/30/24 Range/Units 16:30 20:04 POC Glucose 108 H 118 H (70-99) mg/dl Diagnostic Findings Chest X-Ray 10/24/24 13:51 XR chest 1V portable HISTORY: 84 years-old Female Sepsis acute sepsis COMPARISON: 04/23/2022 TECHNIQUE: AP view of the chest FINDINGS: Cardiac silhouette is enlarged. Patient positioning limits this study. Right hemidiaphragmatic elevation with linear right basilar densities. No pneumothorax, pleural effusion or overt pulmonary edema. Bones appear grossly intact. IMPRESSION: 1. Cardiomegaly without pulmonary edema. 2. Right hemidiaphragmatic elevation with right basilar densities, likely atelectatic. ACT 112: Negative or not required by law. The above report was generated using voice recognition software. It may contain grammatical, syntax or spelling errors. Electronically signed by: Bernard Peralta M.D. 10/24/2024 2:45 PM KUB X-Ray 10/27/24 09:56 KUB HISTORY: Abdominal pain COMPARISON STUDY: 12/07/2020 FINDINGS: A KUB is unchanged. The bowel gas pattern is nonspecific. There is no evidence of bowel obstruction. The properitoneal fat lines are maintained. Pelvic calcifications are once again noted consistent with fibroids. There is multilevel degenerative change in the lumbar spine. IMPRESSION: No acute findings identified. ACT 112: Negative or not required by law. The above report was generated using voice recognition software. It may contain grammatical, syntax or spelling errors. Electronically signed by: Elli Hudson M.D. 10/27/2024 10:47 AM Videofluoroscopic Swallow 10/28/24 09:30 FL video swallow CLINICAL HISTORY: r/o aspiration COMPARISON STUDY: 07/12/2023 TECHNIQUE: The patient was given a barium mixture of varying consistencies according to the speech pathology protocol. Examination was observed fluoroscopically with rapid sequence filming performed. Dose data not provided. FINDINGS: The patient had difficulty initiating deglutition most likely due to anxiety rather than that dyskinesis. What swallowing was done resulted in pronounced pooling of contrast material in the vallecular recess. There is spillage over the base of the tongue. There was one episode of deep penetration with thin liquids but no efrain aspiration was observed on this limited study. IMPRESSION: Limited study due to the inability or unwillingness to the patient to initiate the swallowing. Suspect a component of anxiety. There was one episode of deep penetration with thin liquids. No aspiration was observed. ACT 112: Negative or not required by law. Electronically signed by: Elli Hudson M.D. 10/28/2024 12:44 PM Medications Administered Abnormal lab results 10/30/24 10/30/24 Range/Units 16:30 20:04 POC Glucose 108 H 118 H (70-99) mg/dl PG Care Time/CCT Total # of Minutes Spent Total Time Spent with Patient: Total time spent is greater than 50% in coordination of care (as documented) at patient's floor/unit and/or counseling patient: Advanced Care Planning 12596 Advanced Care Planning 30 Min [place] [address] SUB INP/OBS CARE 2/35MIN Patient Type Established History Expanded Problem Focused Exam Expanded Problem Focused Medical Decision Making Moderate Complexity Diagnoses Palliative care by specialist Z51.5 Counseling regarding goals of care Z71.89 Encounter for hospice care discussion Z71.89 Need for comfort care Additional Codes Advanced Care Planning - 36066 Advanced Care Planning 30 Min: 82247 Advanced Care Planning 30 Min ([id number])
[2024-10-31 16:05] VITALS: PULSE 109
--- NOTE | 2024-10-31 17:04 | Hospitalist Progress Note ---
Date of Service October 31, 2024 Assessment & Plan (1) Sepsis: (2) Bullous pemphigoid: (3) АННА (acute kidney injury): (4) Hypernatremia: (5) Elevated lactic acid level: (6) Elevated troponin: (7) Diabetes mellitus, type II: (8) Anxiety: (9) Depression: Plan Per previous hospitalist notes and addendum: 84 year old woman with a PMH of CAD, DM II, COPD, CKD III, anxiety, SILVIA, history of tobacco, bullous pemphigoid diagnosed last month who was called by PCP to come to ER for abnormal labs On admission, CXR noted cardiomegaly without pulm edema. Right hemidiaphragmatic elevation with right basilar densities likely atelectatic Labs notable for leukocytosis of 14.39, Hb of 16.7, HCt 52.3, Na of 152, Cl 114 Cr 2.43, Ca 10.9, trop 59.6. Lactate improved from 2.5 to 1.4 On admission, she had tachycardia, leukocytosis and lactate of 2.5; hence meets SIRS criteria Hence Sepsis is possible though these could also be from dehydration based on history, exam and findings (including increased Hb/Hct above patient's normal suggestive of hemoconcentration) Has history of aspiration Possible aspiration pneumonia/pneumonitis Possible Urinary tract infection Infectious negative so far Leukocytosis may be due to infection vs steroid Currently on ceftriaxone, doxycycline and flagyl With UCx growing ESBL and clinical status, will switch ceftriaxone/flagyl to ertapenem for now and monitor GAS APPLIANCE INSTALLER eval noted Planned for video swallow study hoping patient will participate Awaiting ENT eval Hypokalemia repleted Nephro on board Continue IVF 10/29 Patient does not want to pursue artificial means of nutrition Palliative service consulted Patient's niece Flora requesting to speak with palliative care service again tomorrow Continue IV fluids, IV or ertapenem for UTI 10/31 Discussed with palliative care service Yamil Shah She had a discussion with the patient's family Plan is to transition to comfort measures only status once family visits the patient this afternoon Elevated trops may be due to demand No new ST changes. Denied chest pain/SOB Trop 59->35 Home prednisone changed to IV solumedrol Other home meds such as PPI changed to IV meds due to patient not taking po meds well Code status: DNR POA reported that based on patient's living will, she does not want a feeding tube Admission and Anticipated Discharge Date Admission Date: October 24, 2024 Subjective Follow-up for dysphagia, etc. Seen resting in bed, sleeping but easily awakened States she feels very drowsy Still having cough with sips of liquids Denies pain, shortness of breath No other new symptom Review of Systems Review of Systems: all noted and negative except for above Physical Exam Physical Exam: General- oriented x 2, not in distress, speaks in sentences with no effort or accessory muscle use Eyes- anicteric Neck- no JVD Lungs- clear breath sounds bilaterally, no rales/wheezes Heart- normal rate, regular rhythm; no murmurs Abdomen- normal bowel sounds, nondistended, soft, nontender Extremities- no pretibial edema, no calf tenderness Neuro- alert, oriented x2; no gross focal neurologic deficits Skin- warm & dry Results & Data Results & Data Vital Signs (Past 12 Hours) Vital Signs Temp Pulse Pulse Resp BP Pulse Ox O2 Del Method 10/31/24 16:01 36.3 C L 114 H 20 126/82 96 Room Air 10/31/24 16:00 109 H 10/31/24 11:32 36.3 C L 109 H 20 125/84 96 Room Air 10/31/24 08:25 36.4 C 115 H 20 130/82 99 Room Air 10/31/24 07:25 104 H all noted and reviewed including below
[2024-10-31] MEDS: SCOPOLAMINE 1 MG/72 HR TDSY PATCH TD SCH (17:52)
[2024-10-31] MEDS: CHECK SCOPOLAMINE PATCH PLACEMENT SCH (17:57)
[2024-10-31] MEDS ORDERED: LORazepam 2 MG/1 ML VIAL IV PRN (18:56)
[2024-10-31] MEDS ORDERED: GLYCOPYRROLATE 0.2 MG/ML VIAL IV PRN (18:56)
[2024-10-31] MEDS ORDERED: ONDANSETRON INJ 2 MG/ML 2 ML VIAL IV PRN (18:56)
[2024-10-31] MEDS ORDERED: HYDROmorphone INJ 0.5 MG/0.5 ML SYR IV PRN (18:56)
[2024-10-31] MEDS ORDERED: ONDANSETRON 4 MG OD TAB PO PRN (19:27)
[2024-10-31] MEDS: PANTOprazole 40 MG TAB PO SCH (20:27)
[2024-10-31 20:38] VITALS: BP 141/102; TEMP 98.1; O2SAT 98
[2024-10-31] MEDS: HALOPERIDOL ORAL SOLN 2 MG/ML PO PRN (21:49)
[2024-10-31] MEDS: ATROPINE SULFATE 1% OP SOLN 5 ML BTL SL PRN (22:16)
[2024-11-01] MEDS: FIRST - Mouthwash BLM 5 ML UDP PO PRN (02:10)
[2024-11-01] MEDS: LORazepam 0.5 MG TAB PO PRN ×2 (03:37→09:01)
[2024-11-01] MEDS ORDERED: HYOSCYAMINE SULFATE 0.125 MG TAB SL PRN (04:08)
[2024-11-01] MEDS: MoRPHine SULFATE 10 MG/0.5 ML UDP PO PRN ×2 (04:19→16:54)
[2024-11-01] MEDS ORDERED: MoRPHine SULFATE 10 MG/0.5 ML UDP PO PRN (15:29)
[2024-11-01] MEDS: MoRPHine SULFATE 10 MG/0.5 ML UDP PO STA (15:53)
[2024-11-01] MEDS: ATROPINE SULFATE 1% OP SOLN 5 ML BTL SL PRN (16:04)
[2024-11-01] MEDS ORDERED: LORazepam 1 MG TAB PO PRN (16:42)
--- NOTE | 2024-11-01 16:45 | Hospitalist Progress Note ---
Date of Service November 01, 2024 Assessment & Plan (1) Sepsis: (2) Bullous pemphigoid: (3) АННА (acute kidney injury): (4) Hypernatremia: (5) Elevated lactic acid level: (6) Elevated troponin: (7) Diabetes mellitus, type II: (8) Anxiety: (9) Depression: Plan Per previous hospitalist notes and addendum: 84 year old woman with a PMH of CAD, DM II, COPD, CKD III, anxiety, SILVIA, history of tobacco, bullous pemphigoid diagnosed last month who was called by PCP to come to ER for abnormal labs On admission, CXR noted cardiomegaly without pulm edema. Right hemidiaphragmatic elevation with right basilar densities likely atelectatic Labs notable for leukocytosis of 14.39, Hb of 16.7, HCt 52.3, Na of 152, Cl 114 Cr 2.43, Ca 10.9, trop 59.6. Lactate improved from 2.5 to 1.4 On admission, she had tachycardia, leukocytosis and lactate of 2.5; hence meets SIRS criteria Hence Sepsis is possible though these could also be from dehydration based on history, exam and findings (including increased Hb/Hct above patient's normal suggestive of hemoconcentration) Has history of aspiration Possible aspiration pneumonia/pneumonitis Possible Urinary tract infection Infectious negative so far Leukocytosis may be due to infection vs steroid Currently on ceftriaxone, doxycycline and flagyl With UCx growing ESBL and clinical status, will switch ceftriaxone/flagyl to ertapenem for now and monitor BUSINESS CONTINUITY CONSULTANT eval noted Planned for video swallow study hoping patient will participate Awaiting ENT eval Hypokalemia repleted Nephro on board Continue IVF 10/29 Patient does not want to pursue artificial means of nutrition Palliative service consulted Patient's niece Flora requesting to speak with palliative care service again tomorrow Continue IV fluids, IV or ertapenem for UTI 10/31 Discussed with palliative care service Yamil Shah She had a discussion with the patient's family Plan is to transition to comfort measures only status once family visits the patient this afternoon 11/01 Increase Roxanol to 10 mg every 15 minutes Ativan also increased to 1 mg as needed Discussed with palliative care service Elevated trops may be due to demand No new ST changes. Denied chest pain/SOB Trop 59->35 Home prednisone changed to IV solumedrol Other home meds such as PPI changed to IV meds due to patient not taking po meds well Code status: DNR POA reported that based on patient's living will, she does not want a feeding tube Admission and Anticipated Discharge Date Admission Date: October 24, 2024 Subjective Follow-up for comfort measures status only, etc. Seen resting in bed, tachypneic No signs of pain Family at bedside visiting Review of Systems Review of Systems: all noted and negative except for above Physical Exam Physical Exam: General- Drowsy, tachypnea Lungs- Mild secretions heard Results & Data Results & Data Vital Signs (Past 12 Hours) Vital Signs O2 Del Method 11/01/24 08:30 Room Air all noted and reviewed including below
--- NOTE | 2024-11-02 07:44 | Discharge Summary ---
Discharge Summary Date of Service November 02, 2024 Principal Dx & Hospital Course #1 = Principal Diagnosis (1) Sepsis: (2) Bullous pemphigoid: (3) АННА (acute kidney injury): (4) Hypernatremia: (5) Elevated lactic acid level: (6) Elevated troponin: (7) Diabetes mellitus, type II: (8) Anxiety: (9) Depression: Plan Per previous hospitalist notes and addendum: 84 year old woman with a PMH of CAD, DM II, COPD, CKD III, anxiety, SILVIA, history of tobacco, bullous pemphigoid diagnosed last month who was called by PCP to come to ER for abnormal labs On admission, CXR noted cardiomegaly without pulm edema. Right hemidiaphragmatic elevation with right basilar densities likely atelectatic Labs notable for leukocytosis of 14.39, Hb of 16.7, HCt 52.3, Na of 152, Cl 114 Cr 2.43, Ca 10.9, trop 59.6. Lactate improved from 2.5 to 1.4 On admission, she had tachycardia, leukocytosis and lactate of 2.5; hence meets SIRS criteria Hence Sepsis is possible though these could also be from dehydration based on history, exam and findings (including increased Hb/Hct above patient's normal suggestive of hemoconcentration) Has history of aspiration Possible aspiration pneumonia/pneumonitis Possible Urinary tract infection Infectious negative so far Leukocytosis may be due to infection vs steroid Currently on ceftriaxone, doxycycline and flagyl With UCx growing ESBL and clinical status, will switch ceftriaxone/flagyl to ertapenem for now and monitor SILVER PLATER eval noted Planned for video swallow study hoping patient will participate Awaiting ENT eval Hypokalemia repleted Nephro on board Continue IVF 10/29 Patient does not want to pursue artificial means of nutrition Palliative service consulted Patient's niece Flora requesting to speak with palliative care service again tomorrow Continue IV fluids, IV or ertapenem for UTI 10/31 Discussed with palliative care service Yamil Shah She had a discussion with the patient's family Plan is to transition to comfort measures only status once family visits the patient this afternoon 11/01 Increase Roxanol to 10 mg every 15 minutes Ativan also increased to 1 mg as needed Discussed with palliative care service patioent pronounced at 1744 Elevated trops may be due to demand No new ST changes. Denied chest pain/SOB Trop 59->35 Home prednisone changed to IV solumedrol Other home meds such as PPI changed to IV meds due to patient not taking po meds well Notes For Next Care Provider Medication Changes From Visit none Admission HPI Per Admitting Provider This is an 84yo F with a PMH of CAD, DM II, COPD, CKD III, anxiety, SILVIA, history of tobacco, bullous pemphigoid diagnosed last month and other medical problems listed below who presents with abnormal lab work. History primarily obtained from sister in law/POUriel Ayala at bedside due to patient's cognitive state. Was diagnosed with bullous pemphigoid in September and had blisters all over body extending to mouth and throat. Was tolerating pureed foods until 5 days ago but with increased mucous production she has not been able to tolerate much PO, whi ch prompted visit to PCP this AM. Due to abnormal labwork and concern for dehydration was directed to ED for further evaluation. Patient lives with [facility] caregivers and Lucy is involved with care but lives out of town. Lucy and caregiver note significant decline in mobility as well as oral intake over the past few weeks due to bullous pemphigoid. Followed up with dermatology this morning who noted lesions have significantly proved with topical clobetasol, oral doxycycline, prednisone. Prednisone decreased from 40mg daily to 20mg daily. Was also started on Cymbalta 30 mg and gabapentin 100 mg TID this AM to help with pain and depression resulting from health condition. Also started on nystatin for thrush. Per review, did have a swallow study a few years ago that showed evidence of aspiration. Has pain at site of lesions in mouth and all over body that are tender. No F/C, CP, SOB or abdominal pain. Discharge Exam patient Updated Medication List Medication Instructions Recorded Confirmed Type aspirin 81 mg tablet,delayed 81 mg PO QAM 02/10/19 10/24/24 History release cholecalciferol (vitamin D3) 50 2,000 unit PO QAM 02/10/19 10/24/24 History mcg (2,000 unit) tablet (Vitamin D3) multivitamin 1 tab PO QAM 02/10/19 10/24/24 History albuterol sulfate 90 mcg/actuation 2 puff inhalation Q6H PRN 06/06/19 10/24/24 History aerosol inhaler (ProAir HFA) Shortness Of Breath vitamins A,C,[id number] 2,148 1 tab PO QAM 06/06/19 10/24/24 History mcg-113 mg-45 mg-17.4 mg tablet (PreserVision AREDS) omeprazole 40 mg capsule,delayed 40 mg PO BID #180 caps 01/19/21 10/24/24 Rx release mirtazapine 15 mg tablet 22.5 mg PO HS 10/26/21 10/24/24 History buspirone 10 mg tablet 10 mg PO BID 04/05/22 10/24/24 History ferrous sulfate 325 mg (65 mg 325 mg PO BID 04/05/22 10/24/24 History iron) tablet acetaminophen 650 mg 650 mg PO UD 10/24/24 10/24/24 History tablet,extended release (Arthritis Pain Relief (acetaminophen) ER) alprazolam 0.25 mg tablet 0.25 mg PO BID PRN Anxiety 10/24/24 10/24/24 History cetirizine 10 mg tablet 10 mg PO BID 10/24/24 10/24/24 History clobetasol 0.05 % topical ointment 1 applic topical BID 10/24/24 10/24/24 History cyanocobalamin (vitamin B-12) 2,000 mcg PO DAILY 10/24/24 10/24/24 History 1,000 mcg capsule diphenhydramine HCl 25 mg capsule 25 mg PO HS PRN Itching 10/24/24 10/24/24 History (Benadryl) doxycycline monohydrate 100 mg 100 mg PO BID 10/24/24 10/24/24 History tablet duloxetine 30 mg capsule,delayed 30 mg PO DAILY 10/24/24 10/24/24 History release famotidine 20 mg tablet 20 mg PO BID 10/24/24 10/24/24 History gabapentin 100 mg capsule 100 mg PO TID 10/24/24 10/24/24 History meclizine 12.5 mg tablet 12.5 mg PO TID PRN Vertigo 10/24/24 10/24/24 History nystatin 100,000 unit/mL oral 1 ml PO QID 10/24/24 10/24/24 History suspension prednisone 20 mg tablet 40 mg PO DAILY 10/24/24 10/24/24 History tiotropium 2.5 mcg-olodaterol 2.5 2 puff inhalation DAILY 10/24/24 10/24/24 Hi story mcg/actuation mist for inhalation (Stiolto Respimat) triamcinolone acetonide 0.1 % 1 applic topical BID 10/24/24 10/24/24 History topical ointment Hospital Stay Data Consultations 10/24/24 16:43 ED Decision to Admit Stat 10/25/24 07:30 Consult Nephrology Routine 10/27/24 13:39 Consult Otolaryngology (Head and Neck) Routine 10/28/24 16:35 Consult Palliative Care Routine Diagnostic Imagining Performed 10/28/24 09:30 Fluoro video [FL video swallow] Routine Total Time Total Time Spent Total Time Spent (In Minutes): < 30 minutes
== END 2024-11-01 18:46 | disposition expired | DRG 871 ==
LOC: ED 13:41 → SUATTDRO 16:59 → EDINP 16:59 → 2E 20:11 → 3E 11-01 02:20